=== PATIENT | female | born 1995 | race Caucasian/White ===

== ENCOUNTER → 2017-07-07 | Outpatient (CLI) | payer MEDICAID ==
[~2017-07-07] MED LIST: ACET325T38 PO; ACHD5005 PO; CALC500T7 PO; CEPH-507 PO; CEPH500C PO; DCS100C PO; DOCU100C37 PO; FAMO10TA43 PO; FERR240T9 PO; FERR325C PO; HYDR-3812 PO; IBP600T1 PO; IBUP-1773 PO; METR250T32 PO; MULT-192 PO; NAPR500T3 PO; NITR-65 PO; Nifedipine PO; OMEP20TA7 PO; ONDA4TAB11 PO; PHEN-640 PO; PNV1TABL9 PO; PREN-93 PO
--- NOTE | 2017-07-07 14:26 | Diagnostic Imaging Report ---
INDICATION: , size and dates. TECHNIQUE: Multiple real-time grayscale images were obtained over the gravid uterus. COMPARISON: None. FINDINGS: Intrauterine gestation today measures 20 weeks 0 day with the biometrical measurements congruent. No pathological finding at the anatomical survey is revealed however the caudal aspect of the spine is suboptimally visualized on a technical basis. The placenta is anterior with no abruption or previa. Positioning is breech. Amniotic fluid volume visually appears within normal limits. IMPRESSION: Rainey gestation in breech position without pathologic finding identified. We acknowledge limited visualization of the spine on a positional basis. Biometrical measurements are as follows: Biparietal 4.72 cm, age 20 weeks 2 days. Head circumference 17.72 cm, age 20 weeks 2 days. Abdominal circumference 14.51 cm, age 19 weeks 6 days. Femur length 3.00 cm, age 19 weeks 2 days. Sonographic estimate age: 20 weeks 0 days. Sonographic estimated date of delivery: 11-24-17. Estimated Weight: 305 gm (+/- 45 gm). LMP percentile: 9%. heart rate: NA beats per minute. number: 1 of 1. Dictated by: Dictated on workstation # [id number]
== END ==
LOC: RAD 10:48
PROVIDERS: ATTEND Obstetrics & Gynecology
DX: Z36.87 Encounter for antenatal screening for uncertain dates (principal); Z3A.20 20 weeks gestation of pregnancy
CPT/HCPCS: 76805

== ENCOUNTER 2017-11-04 10:25 | Inpatient (IN) | payer MEDICAID ==
[~2017-11-04] VITALS: Ht 160 cm; Wt 89.6 kg
[~2017-11-04 10:25] MED LIST changes: -HYDR-3812 PO; +NAPR-915 PO; -NAPR500T3 PO
[2017-11-04 10:35] VITALS: BP 144/84
--- OUTSIDE RECORDS SUMMARY | 2017-11-04 10:40 | XMS REPORT | CCD ---
Author Author Auto Generated Organization [facility] Address Unknown Phone Unavailable Care Team Providers Care Knowledge Engineer Name Role Phone Darin Ott RP [phone] Akshat Adams CP [phone] Casey Garcia PP [phone] Allergies, Adverse Reactions, Alerts Substance Reaction Status Adhesive Bandage Active Problem List Condition Effective Dates Status 07/04/2013 - Resolved 03/27/2014 05/22/2014 Active Medications Medication Instructions Start Date End Date Status ferrous sulfate 325 65 mg=1 tablet, PO, qDay, 325 mg/1 12/18/2014 Ordered mg (65 mg elemental tablet=65 mg elemental iron., # 30 iron) oral delayed tablet, Refill(s) 0 release tablet 325 mg/1 tablet=65 mg elemental iron. 1 tablet, PO, qDay, Refill(s) 0 12/18/2014 Ordered Multivitamins with Folic Acid 1 mg oral tablet Vital Signs Most recent to oldest [Reference Range]: 1 Heart Rate [45-120 bpm] 86 bpm (12/25/2014 14:11:00) Most recent to oldest [Reference Range]: 1 Blood Pressure Cuff [90-140/45-90 mmHg] <content ID='[id number]'>132</ content>/<content ID='[id number]'>63</content> mmHg (12/25/2014 14:11:00) Most recent to oldest [Reference Range]: 1 Current Weight 89.4 kg (12/25/2014 14:11:00) Most recent to oldest [Reference Range]: 1 Height/Length 137.2 cm (12/25/2014 14:11:00)
--- OUTSIDE RECORDS SUMMARY | 2017-11-04 10:40 | XMS REPORT | Continuity of Care Document ---
Author Author [employer] Organization [facility] Address Unknown Phone Unavailable Care Team Providers Care Caregiver Assisted Living Name Role Phone [employer] Unavailable Unavailable Problems Problem Status Onset Date Classification Date Reported Comments Source Patient currently (finding) Resolved 07/04/2013 Problem 03/29/2015 [facility] Medications Medication Details Route Status Patient Instructions Ordering Provider Order Date Source ferrous sulfate 325 mg (65 mg elemental iron) oral delayed release tablet 65 mg=1 tablet, PO, qDay, 325 mg/1 tablet=65 mg elemental iron., # 30 tablet, Refill(s) 0 325 mg/1 tablet=65 mg elemental iron. Active [facility] Multivitamins with Folic Acid 1 mg oral tablet 1 tablet, PO, qDay, Refill(s) 0 Active [facility] buffered lidocaine 1% 12/21/14 15:59:00 CDT, Med Drawer (Pharmacy), Routine, 3 mL, Intradermal, Injection, Unscheduled, PRN Needle Sticks Active [facility] sodium chloride 0.9% 1,000 mL 12/21/14 15:59:00 CDT, [facility] Inpatient, Routine, IV, 1,000 mL Total Volume, goga=721 mL/ hrMED ID: [id number] [facility] acetaminophen 12/21/14 16:19:00 CDT, [facility], Routine, 500 mg=1 tablet, PO, q4hr, PRN Fever or Mild Pain, greater than 33 kg greater than 33 kgMax dose: 10 y.o.=4 gm/day Active [facility] Allergies, Adverse Reactions, Alerts Substance Category Reaction Severity Reaction type Status Date Reported Comments Source Adhesive Bandage allergy to substance Continue Substance: Mild Allergy Active [facility] Immunizations Results Order Name Results Value Reference Range Date Interpretation Comments Source UA Micro Squam Epithelial Ur MANY (>15) /HPF 01/16/2015 [facility] UA Micro WBC Ur 51-100 /HPF 1-4 01/16/2015 [facility][note 3] UA Micro RBC Ur 1-4 /HPF 1-4 01/16/2015 [facility] UA Micro Bacteria Ur MANY / HPF NONE 01/16/2015 [facility] UA Micro Casts Ur NONE NONE 01/16/2015 [facility] UA Micro Crystals Ur NONE NONE 01/16/2015 [facility] UAM Color Ur YELLOW 01/16/2015 [facility] UAM Clarity Ur CLOUDY 01/16/2015 [facility] UAM Glucose Ur NEGATIVE NEGATIVE 01/16/2015 [facility] UAM Bili Ur NEGATIVE NEGATIVE 01/16/2015 [facility] UAM Ketones Ur NEGATIVE NEGATIVE 01/16/2015 [facility] UAM Specific [place] Ur 1.012 1.005 - 1.035 2014 [facility] UAM pH Ur 6.5 4.6 - 8.0 01/16/2015 [facility] UAM Protein Ur TRACE NEGATIVE 01/16/2015 [facility] UAM Nitrite Ur NEGATIVE NEGATIVE 01/16/2015 [facility] UAM Blood Ur NEGATIVE NEGATIVE 01/16/2015 [facility] UAM Leukocytes Ur 3+ NEGATIVE 01/16/2015 [facility][note 3] UAM Urobilinogen Ur NORMAL mg /dL 0.2 - 2.0 01/16/2015 [facility] Vit B12 Vit B-12 390 pg/mL 200-1100 01/05/2015 Please note: although the reference range for Vitamin B12 is 200-1100 pg/mL, it has been reported that between 5 and 10% of patients with values between 200 and 400 pg/mL may experience neuropsychiatric and hematologic abnormalities due to occult B12 deficiency; less than 1% of patients with values above 400 pg/mL will have symptoms. Lab test performed by: [facility] [address] [place] [address] Director: Yolie Campos MD, PhD [facility] Folate RBC Folate Erythrocytes >1720 ng/mL >=366 2014 [facility] Rubella Rubella IgG Pos 01/02/2015 [facility] G6PD G6PD 11.05 International Unit/gm Hgb 6.11 - 14.38 01/02/2015 Patients with recent RBCs transfusion, acute hemolysis and reticulocytosis may show falsely elevated G6PD activity. If indicated, repeat testing after clearance of transfused cell or following recovery after the acute hemolytic event is recommended. [facility] G6PD G6PD Method Comment Patients with recent RBC transfusion, acute hemolysis and reticulocytosis 01/02/2015 [facility] Hgb Reflex HGB 10.3 gm/dL 12.0 - 16.0 01/01/2015 [facility] TIBC TIBC 490 mcg/dL 224 - 435 01/01/2015 [facility] TIBC 490 mcg/dL 224 - 435 01/01/2015 [facility] TranSatPnl Iron 40 mcg/dL 50 - 160 01/01/2015 [facility]Sat[facility] Transferrin Saturation 8 % 15 - 46 01/01/2015 [facility] Retic % Retic 2.0 % 01/01/2015 [facility] Retic Abs Retic 0.0755 x10(6 ) mcL 0.0250 - 0.1000 2014 [facility] Retic Im Retic Fraction 21.6 % 3.0 - 20.0 01/01/2015 [facility] ALT ALT 24 unit/L 5 - 50 01/01/2015 [facility] AST AST 16 unit/L 12 - 50 01/01/2015 [facility] BasMet Sodium 137 mmol/L 135 - 145 01/01/2015 [facility] Potassium 3.5 mmol/L 3.5 - 5.2 01/01/2015 [facility] BasMet Chloride 104 mmol/L 99 - 112 01/01/2015 [facility] BasMet Carbon Dioxide 26 mmol /L 20 - 30 01/01/2015 [facility] Anion Gap 7 mmol/L 7 - 14 01/01/2015 [facility] Calcium 9.4 mg/dL 8.6 - 10.5 01/01/2015 [facility] BasMet Glucose 88 mg/dL 65 - 110 01/01/2015 [facility] BUN 4 mg/dL 5 - 20 01/01/2015 [facility] BasMet Creatinine .64 mg/dL .35 - .84 01/01/2015 [facility] BasMet Creatinine, Old Calibration 0.8 mg/dL 0.5 - 1.0 This creatinine value is a calculated value from the newly implemented IDMS calibration. It represents the value equivalent to what was previously reported by the laboratory. [facility] Uric Uric Acid 5.6 mg/dL 2.0 - 7.0 01/01/2015 [facility] DIFA Differential Method Auto Diff 01/01/2015 [facility] CBCD WBC 7.63 x10(3) mcL 4.50 - 11.00 01/01/2015 [facility] CBCD RBC 3.53 x10(6) mcL 4.00 - 5.20 01/01/2015 [facility] CBCD HGB 9.5 gm/dL 12.0 - 16.0 01/01/2015 [facility] CBCD HCT 29.3 % 36.0 - 46.0 01/01/2015 [facility] CBCD MCV 83.0 fL 82.0 - 100.0 01/01/2015 [facility] CBCD MCH 26.9 pg 26.0 - 34.0 01/01/2015 [facility] CBCD MCHC 32.4 gm/dL 31.5 - 36.5 01/01/2015 [facility] CBCD RDW 14.3 % 11.5 - 14.5 01/01/2015 [facility] CBCD Platelet 166 x10(3) mcL 150 - 450 01/01/2015 [facility] CBCD MPV 9.3 fL 8.2 - 12.4 01/01/2015 [facility] DIFA % Neutro 64.7 % 01/01/2015 [facility] DIFA % Imm Gran 0.4 % 01/01/2015 This number represents the sum of the metamyelocytes, myelocytes and promyelocytes. [facility] DIFA % Lymph 22.1 % 01/01/2015 [facility] DIFA % [place] 11.8 % 01/01/2015 [facility] DIFA % Eos 0.7 % 01/01/2015 [facility] DIFA % Baso 0.3 % 01/01/2015 [facility] DIFA Abs Neut 4.94 x10(3) mcL 1.80 - 7.00 01/01/2015 [facility] DIFA Abs Imm Gran 0.03 x10(3 ) mcL 0.00 - 0.04 01/01/2015 [facility] DIFA Abs Lymph 1.69 x10(3) mcL 1.20 - 4.00 01/01/2015 [facility] DIFA Abs [place] 0.90 x10(3) mcL 0.10 - 0.80 01/01/2015 [facility] DIFA Abs Eos 0.05 x10(3) mcL 0.00 - 0.50 01/01/2015 [facility] DIFA Abs Baso 0.02 x10(3) mcL 0.00 - 0.10 01/01/2015 [facility] Vital Signs Vital Sign Value Date Comments Source Current Weight 93.1 kg 2014 [facility] Height/Length 137.2 cm 2014 [facility] Systolic Blood Pressure Cuff Monitored <content ID=' [id number]'>137</content>/<content ID='[id number]'>84</content> mm[Hg ] 01/22/2015 [facility] Current Weight 92.7 kg 2014 [facility] Heart Rate 99 bpm 01/16/2015 [facility] Height/Length 137.2 cm 2014 [facility] Systolic Blood Pressure Cuff Monitored <content ID=' [id number]'>131</content>/<content ID='[id number]'>72</content> mm[Hg ] 01/16/2015 [facility] Heart Rate Monitored 81 bpm 01/11/2015 [facility] Respiratory Rate 18 BR/min [facility] Systolic Blood Pressure Cuff Monitored <content ID=' [id number]'>143</content>/<content ID='[id number]'>75</content> mm[Hg ] 01/11/2015 [facility] Heart Rate Monitored 88 bpm 01/11/2015 [facility] Systolic Blood Pressure Cuff Monitored <content ID=' [id number]'>162</content>/<content ID='[id number]'>87</content> mm[Hg ] 01/11/2015 [facility] Temperature Route Core/Temporal
(01/11/2015 10:15 :00) <sup> </sup> 01/11/2015 [facility] Temperature Celsius 36.5 Sapna 01/11/2015 [facility] Respiratory Rate 19 BR/min [facility] Systolic Blood Pressure Cuff Monitored <content ID=' [id number]'>135</content>/<content ID='[id number]'>77</content> mm[Hg ] 01/08/2015 [facility] Heart Rate 77 bpm 01/08/2015 [facility] Height/Length 137.2 cm 2014 [facility] Current Weight 91.4 kg 2014 [facility] Systolic Blood Pressure Cuff Monitored <content ID=' [id number]'>132</content>/<content ID='[id number]'>63</content> mm[Hg ] 12/25/2014 [facility] Height/Length 137.2 cm 2014 [facility] Heart Rate 86 bpm 12/25/2014 [facility] Current Weight 89.4 kg 2014 [facility] Temperature Celsius 37.1 Sapna 12/22/2014 [facility] Heart Rate Monitored 76 bpm 12/22/2014 [facility] Respiratory Rate 18 BR/min [facility] Temperature Route Core/Temporal
(12/22/2014 07:15 :00) <sup> </sup> 12/22/2014 [facility] Systolic Blood Pressure Cuff Monitored <content ID=' [id number]'>123</content>/<content ID='[id number]'>66</content> mm[Hg ] 12/22/2014 [facility] Respiratory Rate 20 BR/min [facility] Temperature Celsius 36.6 Sapna 12/22/2014 [facility] Heart Rate 89 bpm 12/22/2014 [facility] Temperature Route Core/Temporal
(12/22/2014 05:54 :00) <sup> </sup> 12/22/2014 [facility] Systolic Blood Pressure Cuff Monitored <content ID=' [id number]'>134</content>/<content ID='[id number]'>75</content> mm[Hg ] 12/22/2014 [facility] Temperature Celsius 36.5 Sapna 12/22/2014 [facility] Temperature Route Core/Temporal
(12/22/2014 01:30 :00) <sup> </sup> 12/22/2014 [facility] Heart Rate Monitored 100 bpm 12/22/2014 [facility] Respiratory Rate 16 BR/min [facility] Heart Rate 101 bpm 2014 [facility] Height/Length 137.2 cm 2014 [facility] Current Weight 90 kg 2014 [facility] Height/Length 137.2 cm 2014 [facility] Current Weight 90 kg 2014 [facility] Respiratory Rate 18 BR/min [facility] Temperature Route Core/Temporal
(12/18/2014 16:09 :00) <sup> </sup> 12/18/2014 [facility] Heart Rate 98 bpm 12/18/2014 [facility] Temperature Celsius 36.5 Sapna 12/18/2014 [facility] Systolic Blood Pressure Cuff Monitored <content ID=' [id number]'>128</content>/<content ID='[id number]'>80</content> mm[Hg ] 12/18/2014 [facility] Current Weight 87.5 kg 2014 [facility] Encounters Location Location Details Encounter Type Encounter Number Reason For Visit Attending Provider ADM Date DC Date Status Source [facility] Non Billable [id number] 12/08/2014 12/08/2014 Active [facility] CLI [id number] Akshat Adams 12/18/20142014 Active [facility] OBS [id number] June Rush 12/21/2014 12/22/2014 [facility] CLI [id number] Akshat Adams 12/25/20142014 Active [facility] CLI [id number] Akshat Adams 01/01/20152014 Active [facility] CLI [id number] Akshat Adams 01/08/20152014 Active [facility] CLI [id number] Tylor Phillips 01/11/2015 01/11/2015 Active [facility] CLI [id number] Tylor Phillips 01/16/2015 01/16/2015 Active [facility] CLI [id number] Akshat Adams 01/22/20152014 Active [facility] O 08/07/2017 Active [facility] Procedures Plan of Care Social History Assessment and Plan Family History Advance Directives Functional Status
--- OUTSIDE RECORDS SUMMARY | 2017-11-04 10:40 | XMS REPORT | CCD ---
Author Author Auto Generated Organization [facility] Address Unknown Phone Unavailable Care Team Providers Care Natural Resources Professor Name Role Phone Darin Ott RP [phone] Akshat Adams CP [phone] Casey Garcia PP [phone] Allergies, Adverse Reactions, Alerts Substance Reaction Status [...] [Reference Range]: 1 Heart Rate [45-120 bpm] 98 bpm (12/18/2014 16:09:00) Most recent to oldest [Reference Range]: 1 Respiratory Rate [10-40 BR/min] 18 BR/min (12/18/2014 16:09:00) Most recent to oldest [Reference Range]: 1 Blood Pressure Cuff [90-140/45-90 mmHg] <content ID='[id number]'>128</ content>/<content ID='[id number]'>80</content> mmHg (12/18/2014 16:09:00) Most recent to oldest [Reference Range]: 1 Temperature Route Core/Temporal (12/18/2014 16:09:00) Most recent to oldest [Reference Range]: 1 Temperature Celsius [36.0-38.4 DegC] 36.5 DegC (12/18/2014 16:09:00) Most recent to oldest [Reference Range]: 1 Current Weight 87.5 kg (12/18/2014 16:09:00)
--- OUTSIDE RECORDS SUMMARY | 2017-11-04 10:41 | XMS REPORT | CCD ---
Author Author Auto Generated Organization [facility] Address Unknown Phone Unavailable Care Team Providers Care Orthopedic Coder Name Role Phone Darin Ott RP [phone] Casey Garcia PP [phone] Tylor Phillips CP [phone] Allergies, Adverse Reactions, Alerts Substance Reaction Status [...] Most recent to oldest [Reference Range]: 1 2 Heart Rate Monitored [45-120 bpm] 81 bpm (01/11/2015 10:21:00) 88 bpm (01/11/2015 10:15:00) Most recent to oldest [Reference Range]: 1 2 Respiratory Rate [10-40 BR/min] 18 BR/min (01/11/2015 10:21:00) 19 BR/min (01/11/2015 10:15:00) Most recent to oldest [Reference Range]: 1 2 Blood Pressure Cuff [90-140/45-90 mmHg] <content ID='[id number]'>143</ content>/<content ID='[id number]'>75</content> mmHg *HI* (01/11/2015 10:21:00) <content ID='[id number]'>162</content>/<content ID='[id number]'>87</content> mmHg *HI* (01/11/2015 10:15:00) Most recent to oldest [Reference Range]: 1 2 Temperature Route Core/Temporal (01/11/2015 10:15:00) Most recent to oldest [Reference Range]: 1 2 Temperature Celsius [36-38.4 DegC] 36.5 DegC (01/11/2015 10:15:00)
--- OUTSIDE RECORDS SUMMARY | 2017-11-04 10:41 | XMS REPORT | CCD ---
Author Author Auto Generated Organization [facility] Address Unknown Phone Unavailable Care Team Providers Care Preschool Assistant Name Role Phone No, Referring RP Unavailable Casey Garcia PP [phone] Olaf Amaro CP [phone] Allergies, Adverse Reactions, Alerts Substance Reaction Status Adhesive Bandage Active Problem List Condition Effective Dates Status 07/04/2013 - Resolved 03/27/2014 05/22/2014 Active Medications Medication Instructions Start Date End Date Status buffered lidocaine 12/21/14 15:59:00 CDT, Med Drawer 12/21/2014 Ordered 1% (Pharmacy), Routine, 3 mL, Intradermal, Injection, Unscheduled, PRN Needle Sticks sodium chloride 0.9% 12/21/14 15:59:00 CDT, Health 12/21/2014 Ordered 1,000 mL Center Inpatient, Routine, IV, 1,000 mL Total Volume, qbqm=803 mL/hrMED ID: [id number] ferrous sulfate 325 65 mg=1 tablet, PO, qDay, 325 mg/1 12/18/2014 Ordered mg (65 mg elemental tablet=65 mg elemental iron., # 30 iron) oral delayed tablet, Refill(s) 0 release tablet 325 mg/1 tablet=65 mg elemental iron. 1 tablet, PO, qDay, Refill(s) 0 12/18/2014 Ordered Multivitamins with Folic Acid 1 mg oral tablet acetaminophen 12/21/14 16:19:00 CDT, [facility] 12/21/2014 Ordered [facility], Routine, 500 mg=1 tablet, PO, q4hr, PRN Fever or Mild Pain, greater than 33 kg greater than 33 kgMax dose: < 12 y.o.=75 mg/kg/day; > 12 y.o.=4 gm/day Vital Signs Most recent to oldest [Reference Range]: 1 2 3 Heart Rate [45-120 bpm] 89 bpm (12/22/2014 05:54:00) 101 bpm (12/21/2014 22:06:00) Most recent to oldest [Reference Range]: 1 2 3 Heart Rate Monitored [45-120 bpm] 76 bpm (12/22/2014 07:15:00) 100 bpm (12/22/2014 01:30:00) Most recent to oldest [Reference Range]: 1 2 3 Respiratory Rate [10-40 BR/min] 18 BR/min (12/22/2014 07:15:00) 20 BR/min (12/22/2014 05:54:00) 16 BR/min (12/22/2014 01:30:00) Most recent to oldest [Reference Range]: 1 2 3 Blood Pressure Cuff [90-140/45-90 mmHg] <content ID='[id number]'>123</ content>/<content ID='[id number]'>66</content> mmHg (12/22/2014 07:15:00) <content ID='[id number]'>134</content>/<content ID='[id number]'>75</content> mmHg (12/22/2014 01:30:00) Most recent to oldest [Reference Range]: 1 2 3 Temperature Route Core/Temporal (12/22/2014 07:15:00) Core/Temporal (12/22/2014 05:54:00) Core/Temporal (12/22/2014 01:30:00) Most recent to oldest [Reference Range]: 1 2 3 Temperature Celsius [36-38.4 DegC] 37.1 DegC (12/22/2014 07:15:00) 36.6 DegC (12/22/2014 05:54:00) 36.5 DegC (12/22/2014 01:30:00) Most recent to oldest [Reference Range]: 1 2 3 Current Weight 90 kg (12/21/2014 16:30:00) 90 kg (12/21/2014 15:10:00) Most recent to oldest [Reference Range]: 1 2 3 Height/Length 137.2 cm (12/21/2014 16:30:00) 137.2 cm (12/21/2014 15:10:00)
--- OUTSIDE RECORDS SUMMARY | 2017-11-04 10:41 | XMS REPORT | CCD ---
Author Author Auto Generated Organization [facility] Address Unknown Phone Unavailable Care Team Providers Care Station Superintendent Name Role Phone Akshat Adams CP [phone] Casey Garcia PP [phone] Allergies, Adverse Reactions, Alerts Substance Reaction Status [...]
--- OUTSIDE RECORDS SUMMARY | 2017-11-04 10:41 | XMS REPORT | CCD ---
Author Author Auto Generated Organization Address Unknown Phone Unavailable Care Team Providers Care Looping Machine Operator Name Role Phone Darin Ott RP [phone] Casey Garcia PP [phone] Tylor Phillips CP [phone] Allergies, Adverse Reactions, Alerts Substance Reaction Status [...] [Reference Range]: 1 Heart Rate [45-120 bpm] 99 bpm (01/16/2015 12:09:00) Most recent to oldest [Reference Range]: 1 Blood Pressure Cuff [90-140/45-90 mmHg] <content ID='[id number]'>131</ content>/<content ID='[id number]'>72</content> mmHg (01/16/2015 12:09:00) Most recent to oldest [Reference Range]: 1 Current Weight 92.7 kg (01/16/2015 12:09:00) Most recent to oldest [Reference Range]: 1 Height/Length 137.2 cm (01/16/2015 12:09:00)
--- OUTSIDE RECORDS SUMMARY | 2017-11-04 10:41 | XMS REPORT | CCD ---
Author Author Auto Generated Organization [facility] Address Unknown Phone Unavailable Care Team Providers Care Commercial Maintenance Technician Name Role Phone Darin Ott RP [phone] Akshat Adams CP [phone] Casey Garcia PP [phone] Allergies, Adverse Reactions, Alerts Substance Reaction Status [...] [Reference Range]: 1 Heart Rate [45-120 bpm] 77 bpm (01/08/2015 09:38:00) Most recent to oldest [Reference Range]: 1 Blood Pressure Cuff [90-140/45-90 mmHg] <content ID='[id number]'>135</ content>/<content ID='[id number]'>77</content> mmHg (01/08/2015 09:38:00) Most recent to oldest [Reference Range]: 1 Current Weight 91.4 kg (01/08/2015 09:38:00) Most recent to oldest [Reference Range]: 1 Height/Length 137.2 cm (01/08/2015 09:38:00)
--- OUTSIDE RECORDS SUMMARY | 2017-11-04 10:41 | XMS REPORT | CCD ---
Author Author Auto Generated Organization [facility] Address Unknown Phone Unavailable Care Team Providers Care Metal Treater Name Role Phone Darin Ott RP [phone] Akshat Adams CP [phone] Casey Garcia PP [phone] Allergies, Adverse Reactions, Alerts Substance Reaction Status [...] 1 Blood Pressure Cuff [90-140/45-90 mmHg] <content ID='[id number]'>137</ content>/<content ID='[id number]'>84</content> mmHg (01/22/2015 14:41:00) Most recent to oldest [Reference Range]: 1 Current Weight 93.1 kg (01/22/2015 14:41:00) Most recent to oldest [Reference Range]: 1 Height/Length 137.2 cm (01/22/2015 14:41:00)
--- OUTSIDE RECORDS SUMMARY | 2017-11-04 10:41 | XMS REPORT | Clinical Summary ---
Author Author [facility] Organization [facility] Address Unknown Phone Unavailable Care Team Providers Care Selvage Machine Operator Name Role Phone No Pcp, Na PCP Unavailable Source Comments Some departments are not documenting in the electronic medical record. If you do not see the information that you expected, contact Release of Information in the Health Information Management department at [phone] for further assistance in locating additional records.[facility] Allergies Not on File Current Medications Not on file Active Problems Not on file Social History Tobacco Use Types Packs/Day Years Used Date Never Assessed Sex Assigned at Date Recorded Not on file Last Filed Vital Signs Not on file Plan of Treatment Health Maintenance Due Date Last Done Comments PHYSICAL (COMPREHENSIVE) 2000 EXAM HPV VACCINES (1 of 3 - 2004 Female 3 Dose Series) PERTUSSIS VACCINE 2004 HIV SCREENING 2008 TETANUS VACCINE 2010 CERVICAL CANCER SCREENING 2014 INFLUENZA VACCINE 05/24/2018 Results Not on filefrom Last 3 Months
--- OUTSIDE RECORDS SUMMARY | 2017-11-04 10:41 | XMS REPORT | CCD ---
Author Author Auto Generated Organization [facility] Address Unknown Phone Unavailable Care Team Providers Care Dielectric Tester Name Role Phone Darin Ott RP [phone] Akshat Adams CP [phone] Casey Garcia PP [phone] Allergies, Adverse Reactions, Alerts Substance Reaction Status [...]
--- OUTSIDE RECORDS SUMMARY | 2017-11-04 10:42 | XMS REPORT ---
Author Author ANGELIA REBOLLAR [facility] Address [address] [place] [address] Care Team Providers Care Loan Expeditor Name Role Phone ANGELIA REBOLLAR Unavailable PROBLEMS Type Condition ICD9-CM Code JRO09-SX Code Onset Dates Condition Status SNOMED Code Problem Elevated blood pressure reading without diagnosis of hypertension 796.2 Active 952120587 Problem Tobacco abuse Z72.0 Active 57619244 Problem Anxiety F41.9 Active 08250426 Problem Lower abdominal pain R10.30 Active 34981222 Problem Irregular menstrual cycle N92.6 Active 97599981 Problem Fatigue, unspecified type R53.83 Active 80510069 Problem Constipation, unspecified constipation type K59.00 Active 06271233 ALLERGIES No Information SOCIAL HISTORY Never Assessed PLAN OF CARE VITAL SIGNS MEDICATIONS Unknown Medications RESULTS No Results PROCEDURES No Known procedures IMMUNIZATIONS No Known Immunizations MEDICAL (GENERAL) HISTORY Type Description Date Medical History anxiety Medical History Supervision of normal first Medical History Unspecified chlamydial infection, in conditions classified elsewhere and of unspecified site Medical History Decreased movements, affecting management of mother, antepartum condition or complication Medical History Threatened premature labor, unspecified as to episode of care Medical History Unspecified hypertension complicating , childbirth, or the puerperium, unspecified as to episode of care Medical History Unspecified high-risk Medical History DTAP TEST Surgical History section 01/2015 Surgical History appendectomy 03/2013 Surgical History wisdom teeth extraction Hospitalization History surgeries, childbirth
--- OUTSIDE RECORDS SUMMARY | 2017-11-04 10:42 | XMS REPORT ---
Author Author ANGELIA REBOLLAR [facility] eClinicalWorks Address Unknown Phone Unavailable Care Team Providers Care Blind Escort Name Role Phone ANGELIA REBOLLAR CP Unavailable Allergies No Known Allergies Problems Problem Type Condition Code Onset Dates Condition Status Problem Anxiety F41.9 Active Problem Lower abdominal pain R10.30 Active Problem Irregular menstrual cycle N92.6 Active Problem Tobacco abuse Z72.0 Active Problem Elevated blood pressure reading without diagnosis of hypertension 796.2 Active Problem Constipation, unspecified constipation type K59.00 Active Problem Fatigue, unspecified type R53.83 Active Medications No Known Medications Results No Known Results Summary Purpose eClinicalWorks Submission
--- OUTSIDE RECORDS SUMMARY | 2017-11-04 10:42 | XMS REPORT ---
Author Author ANGELIA REBOLLAR [facility] Address [address] [place] [address] Care Team Providers Care Cable Hooker Name Role Phone ANGELIA REBOLLAR Unavailable PROBLEMS Type Condition ICD9-CM Code IRA29-KG Code Onset Dates Condition Status SNOMED Code Problem Elevated blood pressure reading without diagnosis of hypertension 796.2 Active 473912943 Problem Tobacco abuse Z72.0 Active 94621582 Problem Anxiety F41.9 Active 54995910 Problem Lower abdominal pain R10.30 Active 19515306 Problem Irregular menstrual cycle N92.6 Active 45532202 Problem Fatigue, unspecified type R53.83 Active 31889710 Problem Constipation, unspecified constipation type K59.00 Active 87878814 ALLERGIES No Information SOCIAL HISTORY Never Assessed [...]
--- OUTSIDE RECORDS SUMMARY | 2017-11-04 10:42 | XMS REPORT ---
Author Author ANGELIA REBOLLAR [facility] eClinicalWorks Address Unknown Phone Unavailable Care Team Providers Care Pickle Sorter Name Role Phone ANGELIA REBOLLAR CP Unavailable [...]
--- OUTSIDE RECORDS SUMMARY | 2017-11-04 10:42 | XMS REPORT ---
Author Author KAM NGO [facility] e[employer] Address Unknown Phone Unavailable Care Team Providers Care Lap Welder Name Role Phone KAM [facility] CP Unavailable Allergies No Known Allergies Problems Problem Type Condition Code Onset Dates Condition Status Problem Elevated blood pressure reading without diagnosis of hypertension 796.2 Active Problem Oligohydramnios, unspecified as to episode of care 658.00 Active Problem examination or test, negative result V72.41 Active Problem Supervision of normal first V22.0 Active Problem Unspecified high-risk V23.9 Active Problem examination or test, positive result V72.42 Active Problem Allergic rhinitis, cause unspecified 477.9 Active Problem Trichomonal vulvovaginitis 131.01 Active Problem Threatened premature labor, unspecified as to episode of care 644.00 Active Problem Unspecified hypertension complicating , childbirth, or the puerperium, unspecified as to episode of care 642.90 Active Problem Unspecified chlamydial infection, in conditions classified elsewhere and of unspecified site 079.98 Active Problem Decreased movements, affecting management of mother, antepartum condition or complication 655.73 Active Problem Supervision of other normal V22.1 Active Problem Asymptomatic bacteriuria in , unspecified as to episode of care 646.50 Active Problem Need for prophylactic vaccination and inoculation, Influenza V04.81 Active Problem examination or test, unconfirmed V72.40 Active Problem Routine follow-up V24.2 Active Problem 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
--- OUTSIDE RECORDS SUMMARY | 2017-11-04 10:42 | XMS REPORT ---
Author ANGELIA Law [facility] eClinicalWorks Address Unknown Phone Unavailable Care Team Providers Care Chair Car Attendant Name Role Phone ANGELIA REBOLLAR CP Unavailable [...]
--- OUTSIDE RECORDS SUMMARY | 2017-11-04 10:42 | XMS REPORT ---
Author Author ANGELIA REBOLLAR [facility] Address [address] [place] [address] Care Team Providers Care Science Center Display Builder Name Role Phone ANGELIA REBOLLAR Unavailable PROBLEMS Type Condition ICD9-CM Code IOS15-GS Code Onset Dates Condition Status SNOMED Code Problem Elevated blood pressure reading without diagnosis of hypertension 796.2 Active 207203897 Problem Tobacco abuse Z72.0 Active 22888064 Problem Anxiety F41.9 Active 17266319 Problem Lower abdominal pain R10.30 Active 00273048 Problem Irregular menstrual cycle N92.6 Active 19740127 Problem Fatigue, unspecified type R53.83 Active 89268201 Problem Constipation, unspecified constipation type K59.00 Active 14418609 ALLERGIES No Information SOCIAL HISTORY Never Assessed [...]
--- OUTSIDE RECORDS SUMMARY | 2017-11-04 10:42 | XMS REPORT ---
Author Author ANGELIA REBOLLAR [facility] Address [address] [place] [address] Care Team Providers Care Recruiting Operations Consultant Name Role Phone ANGELIA REBOLLAR Unavailable PROBLEMS Type Condition ICD9-CM Code FZF96-ZF Code Onset Dates Condition Status SNOMED Code Problem Elevated blood pressure reading without diagnosis of hypertension 796.2 Active 422969935 Problem Tobacco abuse Z72.0 Active 39157242 Problem Anxiety F41.9 Active 16903250 Problem Lower abdominal pain R10.30 Active 99887649 Problem Irregular menstrual cycle N92.6 Active 28012149 Problem Fatigue, unspecified type R53.83 Active 50418076 Problem Constipation, unspecified constipation type K59.00 Active 92921774 ALLERGIES No Information SOCIAL HISTORY Never Assessed [...]
--- OUTSIDE RECORDS SUMMARY | 2017-11-04 10:43 | XMS REPORT ---
Author Author ANGELIA REBOLLAR [facility] eClinicalWorks Address Unknown Phone Unavailable Care Team Providers Care Music Education Adjunct Professor Name Role Phone ANGELIA REBOLLAR CP Unavailable [...]
--- OUTSIDE RECORDS SUMMARY | 2017-11-04 10:43 | XMS REPORT ---
Author Author ANGELIA REBOLLAR [facility] eClinicalWorks Address Unknown Phone Unavailable Care Team Providers Care Engine Assembler Name Role Phone ANGELIA REBOLLAR CP Unavailable [...]
--- OUTSIDE RECORDS SUMMARY | 2017-11-04 10:43 | XMS REPORT ---
Author Author [facility] [employer] Address Unknown Phone Unavailable Care Team Providers Care Facility Service Manager Name Role Phone [facility] CP Unavailable Allergies, Adverse Reactions, Alerts Substance Reaction Event Type N.K.D.A. Info Not Available Non Drug Allergy Problems Problem Type Condition Code Onset Dates [...] Problem Allergic rhinitis, cause unspecified 477.9 Active Assessment Alopecia L65.9 Active Problem Trichomonal vulvovaginitis 131.01 Active Problem [...] 112.1 Active Problem Cough 786.2 Active Medications Medication Code System Code Instructions Start Date End Date Status Dosage Zoloft [facility] [address]-77 50 MG Orally Once a day 1 tablet Procedures Procedure Coding System Code Date ASSAY OF FREE THYROXINE CPT-4 16417 Jun 13, 2015 Office Visit, Est Pt., Level 3 CPT-4 86182 Jun 13, 2015 ASSAY THYROID STIM HORMONE CPT-4 56061 Jun 13, 2015 VENIPUNCT, ROUTINE* CPT-4 04187 Jun 13, 2015 Vital Signs Date/Time: Jun 13, 2015 Temperature 98.2 F Weight 166.4 lbs Height 63 in BMI 29.47 Index Blood Pressure Diastolic 70 mmHg Blood Pressure Systolic 110 mmHg Cardiac Monitoring Heart Rate 88 bpm Results Name Result Date Reference Range Unit Abnormality Flag ROUTINE VENIPUNCTURE TSH W/ FREE T4 Summary Purpose eClinicalWorks Submission
--- OUTSIDE RECORDS SUMMARY | 2017-11-04 10:44 | XMS REPORT ---
Author Author ANGELIA REBOLLAR [facility] Address [address] [place] [address] Care Team Providers Care Social Media Marketer Name Role Phone ANGELIA REBOLLAR Unavailable PROBLEMS Type Condition ICD9-CM Code BHY80-DL Code Onset Dates Condition Status SNOMED Code Problem Elevated blood pressure reading without diagnosis of hypertension 796.2 Active 537065924 Problem Tobacco abuse Z72.0 Active 98437939 Problem Anxiety F41.9 Active 91433420 Problem Lower abdominal pain R10.30 Active 48974066 Problem Irregular menstrual cycle N92.6 Active 23498638 Problem Fatigue, unspecified type R53.83 Active 24626388 Problem Constipation, unspecified constipation type K59.00 Active 56395969 ALLERGIES No Information SOCIAL HISTORY Never Assessed [...]
--- OUTSIDE RECORDS SUMMARY | 2017-11-04 10:44 | XMS REPORT ---
Author Author HARRIS DUCKWORTH [facility] Address [address] [place] [address] Care Team Providers Care Distribution Specialist Name Role Phone HARRIS DUCKWORTH Unavailable PROBLEMS Type Condition ICD9-CM Code ASI29-MG Code Onset Dates Condition Status SNOMED Code Problem Elevated blood pressure reading without diagnosis of hypertension 796.2 Active 552142696 Problem Tobacco abuse Z72.0 Active 43022211 Problem Anxiety F41.9 Active 86528373 Problem Lower abdominal pain R10.30 Active 24027179 Problem Irregular menstrual cycle N92.6 Active 69263164 Problem Fatigue, unspecified type R53.83 Active 89773898 Problem Constipation, unspecified constipation type K59.00 Active 19242310 ALLERGIES No Known Allergies SOCIAL HISTORY Never Assessed PLAN OF CARE VITAL SIGNS Height 63 in 2016-05-16 Weight 183.2 lbs 2016-05-16 Temperature 98.1 degrees Fahrenheit 2016-05-16 Heart Rate 92 bpm 2016-05-16 Respiratory Rate 20 2016-05-16 BMI 32.45 kg/m2 2016-05-16 Blood pressure systolic 132 mmHg 2016-05-16 Blood pressure diastolic 72 mmHg 2016-05-16 MEDICATIONS Medication Instructions Dosage Frequency Start Date End Date Duration Status Orally Once a day 1 tablet 24h Active Zantac 150 MG Orally Once a day 1 tablet at bedtime 24h Active Amoxicillin 500 MG Orally 3 times a day 1 capsule 8h Apr, May, 10 day(s) Active RESULTS No Results PROCEDURES No Known procedures [...]
--- OUTSIDE RECORDS SUMMARY | 2017-11-04 10:44 | XMS REPORT ---
Author Author ANGELIA REBOLLAR [facility] eClinicalWorks Address Unknown Phone Unavailable Care Team Providers Care Flight Mechanic Name Role Phone ANGELIA REBOLLAR CP Unavailable [...]
--- OUTSIDE RECORDS SUMMARY | 2017-11-04 10:44 | XMS REPORT ---
Author Author BURTON REYES [facility] Address [address] [place] [address] Care Team Providers Care Can Technician Name Role Phone BURTON REYES Unavailable PROBLEMS Type Condition ICD9-CM Code QEH78-FN Code Onset Dates Condition Status SNOMED Code Problem Elevated blood pressure reading without diagnosis of hypertension 796.2 Active 364726305 Problem Tobacco abuse Z72.0 Active 90804612 Problem Anxiety F41.9 Active 64469967 Problem Lower abdominal pain R10.30 Active 06021910 Problem Irregular menstrual cycle N92.6 Active 74855747 Problem Fatigue, unspecified type R53.83 Active 04032665 Problem Constipation, unspecified constipation type K59.00 Active 21076757 ALLERGIES No Information SOCIAL HISTORY Never Assessed [...]
--- OUTSIDE RECORDS SUMMARY | 2017-11-04 10:44 | XMS REPORT ---
Author Author ANGELIA REBOLLAR [facility] Address [address] [place] [address] Care Team Providers Care Order Picker/Assembler Name Role Phone ANGELIA REBOLLAR Unavailable PROBLEMS Type Condition ICD9-CM Code CAQ60-LR Code Onset Dates Condition Status SNOMED Code Problem Elevated blood pressure reading without diagnosis of hypertension 796.2 Active 392462106 Problem Irregular menstrual cycle N92.6 Active 79938461 Problem Anxiety F41.9 Active 48903516 Problem Fatigue, unspecified type R53.83 Active 89154907 Problem Tobacco abuse Z72.0 Active 82690180 Problem Lower abdominal pain R10.30 Active 84559750 Problem Constipation, unspecified constipation type K59.00 Active 71156644 ALLERGIES Unknown Allergies SOCIAL HISTORY No smoking Hx information available PLAN OF CARE VITAL SIGNS MEDICATIONS Unknown Medications RESULTS No Results PROCEDURES No Known procedures IMMUNIZATIONS No Known Immunizations
--- OUTSIDE RECORDS SUMMARY | 2017-11-04 10:44 | XMS REPORT ---
Author Author ANGELIA REBOLLAR [facility] Address [address] [place] [address] Care Team Providers Care Personnel Clerks Supervisor Name Role Phone ANGELIA REBOLLAR Unavailable PROBLEMS Type Condition ICD9-CM Code YYZ20-MF Code Onset Dates Condition Status SNOMED Code Problem Elevated blood pressure reading without diagnosis of hypertension 796.2 Active 018856877 Problem Tobacco abuse Z72.0 Active 28364695 Problem Anxiety F41.9 Active 19333558 Problem Lower abdominal pain R10.30 Active 63145193 Problem Irregular menstrual cycle N92.6 Active 92668182 Problem Fatigue, unspecified type R53.83 Active 32515222 Problem Constipation, unspecified constipation type K59.00 Active 13360192 ALLERGIES No Information SOCIAL HISTORY Never Assessed [...]
--- OUTSIDE RECORDS SUMMARY | 2017-11-04 10:44 | XMS REPORT ---
Author Author ANGELIA REBOLLAR [facility] Address [address] [place] [address] Care Team Providers Care Wood Mechanist Name Role Phone ANGELIA REBOLLAR Unavailable PROBLEMS Type Condition ICD9-CM Code IPG89-IA Code Onset Dates Condition Status SNOMED Code Problem Elevated blood pressure reading without diagnosis of hypertension 796.2 Active 582512474 Problem Tobacco abuse Z72.0 Active 24556945 Problem Anxiety F41.9 Active 38692603 Problem Lower abdominal pain R10.30 Active 04757109 Problem Irregular menstrual cycle N92.6 Active 35983663 Problem Fatigue, unspecified type R53.83 Active 71794117 Problem Constipation, unspecified constipation type K59.00 Active 19330286 ALLERGIES No Information SOCIAL HISTORY Never Assessed [...]
--- OUTSIDE RECORDS SUMMARY | 2017-11-04 10:44 | XMS REPORT ---
Author Author ANGELIA REBOLLAR [facility] Address [address] [place] [address] Care Team Providers Care Hydrant Setter Name Role Phone ANGELIA REBOLLAR Unavailable PROBLEMS Type Condition ICD9-CM Code GYY30-UE Code Onset Dates Condition Status SNOMED Code Problem Elevated blood pressure reading without diagnosis of hypertension 796.2 Active 502148372 Problem Tobacco abuse Z72.0 Active 53369723 Problem Anxiety F41.9 Active 34554807 Problem Lower abdominal pain R10.30 Active 34467867 Problem Irregular menstrual cycle N92.6 Active 71804426 Problem Fatigue, unspecified type R53.83 Active 69810262 Problem Constipation, unspecified constipation type K59.00 Active 65994452 ALLERGIES Unknown Allergies SOCIAL HISTORY No smoking Hx information available PLAN OF CARE VITAL SIGNS MEDICATIONS Unknown Medications RESULTS No Results PROCEDURES No Known procedures IMMUNIZATIONS No Known Immunizations
--- OUTSIDE RECORDS SUMMARY | 2017-11-04 10:44 | XMS REPORT ---
Author Author ANGELIA REBOLLAR [facility] eClinicalWorks Address Unknown Phone Unavailable Care Team Providers Care Automotive Electrical Helper Name Role Phone ANGELIA REBOLLAR CP Unavailable [...]
--- OUTSIDE RECORDS SUMMARY | 2017-11-04 10:44 | XMS REPORT ---
Author Author BURTON REYES [facility] eClinicalWorks Address Unknown Phone Unavailable Care Team Providers Care Blow Down Operator Name Role Phone BURTON REYES CP Unavailable Allergies, Adverse Reactions, Alerts Substance [...] Allergic rhinitis, cause unspecified 477.9 Active Assessment Nausea R11.0 Active Problem Trichomonal vulvovaginitis 131.01 Active Problem [...] Start Date End Date Status Dosage Zoloft [facility] [address]-18 50 MG Orally Once a day 1 tablet Procedures Procedure Coding System Code Date Office Visit, Est Pt., Level 3 CPT-4 67864 Jul 03, 2015 VENIPUNCT, ROUTINE* CPT-4 99284 Jul 03, 2015 CHORIONIC GONADOTROPIN ASSAY CPT-4 27633 Jul 03, 2015 Vital Signs Date/Time: Jul 03, 2015 Temperature 98 F Weight 144.2 lbs Height 63 in BMI 25.54 Index Blood Pressure Diastolic 62 mmHg Blood Pressure Systolic 120 mmHg Cardiac Monitoring Heart Rate 80 bpm Results Name Result Date Reference Range Unit Abnormality Flag ROUTINE VENIPUNCTURE HCG, QUANTITATIVE Summary Purpose eClinicalWorks Submission
--- OUTSIDE RECORDS SUMMARY | 2017-11-04 10:44 | XMS REPORT ---
Author Author ANGELIA REBOLLAR [facility] Address [address] [place] [address] Care Team Providers Care Barrel Straightener Name Role Phone ANGELIA REBOLLAR Unavailable PROBLEMS Type Condition ICD9-CM Code SEY24-NJ Code Onset Dates Condition Status SNOMED Code Problem Elevated blood pressure reading without diagnosis of hypertension 796.2 Active 110586294 Problem Tobacco abuse Z72.0 Active 06509158 Problem Anxiety F41.9 Active 17011359 Problem Lower abdominal pain R10.30 Active 77847291 Problem Irregular menstrual cycle N92.6 Active 41161896 Problem Fatigue, unspecified type R53.83 Active 88804187 Problem Constipation, unspecified constipation type K59.00 Active 62797274 ALLERGIES No Information SOCIAL HISTORY Never Assessed [...]
--- OUTSIDE RECORDS SUMMARY | 2017-11-04 10:45 | XMS REPORT ---
Author Author MONISHA CALI [employer] Address Unknown Phone Unavailable Care Team Providers Care Guide Rail Cleaner Name Role Phone MONISHA CALI Unavailable Allergies, Adverse Reactions, Alerts Substance Reaction Event Type N.K.D.A. Info Not Available Non Drug Allergy Problems Problem Type Condition Code Onset Dates Condition Status Assessment Vaginal discharge N89.8 Active Assessment Pelvic pain R10.2 Active Assessment Left lower quadrant pain R10.32 Active Problem Anxiety F41.9 Active Problem Lower abdominal pain R10.30 Active Problem Irregular menstrual cycle N92.6 Active Problem Tobacco abuse Z72.0 Active Problem Elevated blood pressure reading without diagnosis of hypertension 796.2 Active Problem Constipation, unspecified constipation type K59.00 Active Problem Fatigue, unspecified type R53.83 Active Assessment History of dyspareunia in female Z87.42 Active Assessment Kidney stone N20.0 Active Assessment Unprotected sexual intercourse Z72.51 Active Assessment Screening for malignant neoplasm of cervix Z12.4 Active Assessment Routine screening for STI (sexually transmitted infection) Z11.3 Active Medications Medication Code System Code Instructions Start Date End Date Status Dosage Flagyl [facility] [address]-84 500 MG Orally 2 times a day Oct 04, 2015 Oct 11, 2015 1 tablet Procedures Procedure Coding System Code Date TRICHOMONAS ASSAY W/OPTIC CPT-4 68191 Oct 04, 2015 SPECIMEN HANDLING CPT-4 58731 Oct 04, 2015 No Charge CPT-4 50680 Oct 04, 2015 URINALYSIS, AUTO, W/O SCOPE CPT-4 81648 Oct 04, 2015 URINE TEST CPT-4 13116 Oct 04, 2015 Office Visit, Est Pt., Level 4 CPT-4 60368 Oct 04, 2015 URINE CULTURE/COLONY COUNT CPT-4 26994 Oct 04, 2015 Vital Signs Date/Time: Oct 04, 2015 Temperature 98.3 F Weight 175.0 lbs Height 63 in BMI 31.00 Index Blood Pressure Diastolic 78 mmHg Blood Pressure Systolic 124 mmHg Cardiac Monitoring Heart Rate 86 bpm Results Name Result Date Reference Range Unit Abnormality Flag TRICHOMONAS (IN HOUSE) ----Lot # [id number] 20151004 ----Exp date 20151004 ----TRICHOMONAS negative 20151004 ----Control + 20151004 TEST, URINE (IN HOUSE) ----RESULTS negative 20151004 ----Lot # [id number] 20151004 ----Control + 20151004 ----Exp date 20151004 UA LONG DIP (IN HOUSE) ----KODI negative 20151004 ----GLU negative 20151004 ----SG 1.025 20151004 ----KET negative 20151004 ----pH 5.5 20151004 ----Protein trace 20151004 ----BLO 3+ 20151004 ----CALIN trace 20151004 ----Color yellow 20151004 ----Odor no 20151004 ----Exp date 20151004 ----URO 0.2 E.U./dL 20151004 ----NIT negative 20151004 ----Clarity clear 20151004 ----Lot # [id number] 20151004 Summary Purpose eClinicalWorks Submission
--- OUTSIDE RECORDS SUMMARY | 2017-11-04 10:45 | XMS REPORT ---
Author Author ANGELIA REBOLLAR [facility] eClinicalWorks Address Unknown Phone Unavailable Care Team Providers Care Wet And Dry Sugar Bin Operator Name Role Phone ANGELIA REBOLLAR CP Unavailable [...]
--- OUTSIDE RECORDS SUMMARY | 2017-11-04 10:45 | XMS REPORT ---
Author Author ANGELIA REBOLLRA [facility] eClinicalWorks Address Unknown Phone Unavailable Care Team Providers Care Microwave Oven Assembler Name Role Phone ANGELIA REBOLLAR CP [...]
--- OUTSIDE RECORDS SUMMARY | 2017-11-04 10:45 | XMS REPORT ---
Author Author ANGELIA REBOLLAR [facility] eClinicalWorks Address Unknown Phone Unavailable Care Team Providers Care Cost Report Clerk Name Role Phone ANGELIA REBOLLAR CP Unavailable [...]
--- OUTSIDE RECORDS SUMMARY | 2017-11-04 10:45 | XMS REPORT ---
Author Author ANGELIA REBOLLAR [facility] Address [address] [place] [address] Care Team Providers Care Marzipan Maker Name Role Phone ANGELIA REBOLLAR Unavailable PROBLEMS Type Condition ICD9-CM Code [id number] Code Onset Dates Condition Status SNOMED Code Problem Elevated blood pressure reading without diagnosis of hypertension 796.2 Active 822960345 Problem Tobacco abuse Z72.0 Active 35202251 Problem Anxiety F41.9 Active 09050163 Problem Lower abdominal pain R10.30 Active 27567726 Problem Irregular menstrual cycle N92.6 Active 66167068 Problem Fatigue, unspecified type R53.83 Active 67261841 Problem Constipation, unspecified constipation type K59.00 Active 63666991 ALLERGIES No Information SOCIAL HISTORY Never Assessed [...]
--- OUTSIDE RECORDS SUMMARY | 2017-11-04 10:45 | XMS REPORT ---
Author Author ANGELIA REBOLLAR [facility] e[employer] Address Unknown Phone Unavailable Care Team Providers Care Plater Production Name Role Phone ANGELIA REBOLLAR CP Unavailable [...]
--- OUTSIDE RECORDS SUMMARY | 2017-11-04 10:45 | XMS REPORT ---
Author ANGELIA Law [facility] e[employer] Address Unknown Phone Unavailable Care Team Providers Care Industrial Plant Custodian Name Role Phone ANGELIA REBOLLAR CP Unavailable Allergies No Known Allergies Problems Problem Type Condition ICD-9 Code Onset Dates Condition Status Problem Elevated [...]
--- OUTSIDE RECORDS SUMMARY | 2017-11-04 10:46 | XMS REPORT ---
Author Author CAITLIN SEYMOUR [employer] Address Unknown Phone Unavailable Care Team Providers Care Client Services Account Manager Name Role Phone CAITLIN SEYMOUR CP Unavailable Allergies, Adverse Reactions, Alerts Substance Reaction Event Type N.K.D.A. Info Not Available Non Drug Allergy Problems Problem Type Condition Code Onset Dates Condition Status Assessment Irregular menstrual cycle N92.6 Active Assessment Constipation, unspecified constipation type K59.00 Active Assessment Lower abdominal pain R10.30 Active Problem Anxiety F41.9 Active Problem Lower abdominal pain R10.30 Active Problem Irregular menstrual cycle N92.6 Active Problem Tobacco abuse Z72.0 Active Problem Elevated blood pressure reading without diagnosis of hypertension 796.2 Active Problem Constipation, unspecified constipation type K59.00 Active Problem Fatigue, unspecified type R53.83 Active Assessment Tobacco abuse Z72.0 Active Assessment Fatigue, unspecified type R53.83 Active Assessment Anxiety F41.9 Active Medications Medication Code System Code Instructions Start Date End Date Status Dosage Zoloft [facility] [address]-43 50 MG Orally Once a day 1 tablet MiraLax [facility] [address]-79 1 Bottles Orally Once a day Jul 05, 2015December 17 gm in 8 ounces of water Macrobid [facility] [address]-38 100 MG Orally every 12 hrs Jul 07, 2015 1 capsule with food Procedures Procedure Coding System Code Date COMPLETE CBC W/AUTO DIFF WBC CPT-4 35860 Jul 05, 2015 COMPREHEN METABOLIC PANEL CPT-4 85557 Jul 05, 2015 X-RAY EXAM OF ABDOMEN CPT-4 44050 Jul 05, 2015 VENIPUNCT, ROUTINE* CPT-4 86049 Jul 05, 2015 Office Visit, Est Pt., Level 3 CPT-4 65544 Jul 05, 2015 Vital Signs Date/Time: Jul 05, 2015 Temperature 98.4 F Weight 168 lbs Height 63 in BMI 29.76 Index Blood Pressure Diastolic 68 mmHg Blood Pressure Systolic 122 mmHg Cardiac Monitoring Heart Rate 80 bpm Results Name Result Date Reference Range Unit Abnormality Flag ROUTINE VENIPUNCTURE CBC Summary Purpose eClinicalWorks Submission
--- OUTSIDE RECORDS SUMMARY | 2017-11-04 10:46 | XMS REPORT ---
Author Author ANGELIA REBOLLAR [facility] e[employer] Address Unknown Phone Unavailable Care Team Providers Care Turnstile Collector Name Role Phone ANGELIA REBOLLAR CP Unavailable [...]
--- OUTSIDE RECORDS SUMMARY | 2017-11-04 10:46 | XMS REPORT ---
Author Author ANGELIA REBOLLAR [facility] Address [address] [place] [address] Care Team Providers Care Manager Hospice Name Role Phone ANGELIA REBOLLAR Unavailable PROBLEMS Type Condition ICD9-CM Code [id number] Code Onset Dates Condition Status SNOMED Code Problem Elevated blood pressure reading without diagnosis of hypertension 796.2 Active 474347273 Problem Tobacco abuse Z72.0 Active 95517416 Problem Anxiety F41.9 Active 32945438 Problem Lower abdominal pain R10.30 Active 93803743 Problem Irregular menstrual cycle N92.6 Active 85624251 Problem Fatigue, unspecified type R53.83 Active 33518697 Problem Constipation, unspecified constipation type K59.00 Active [id number] ALLERGIES No Information SOCIAL HISTORY Never Assessed [...]
--- OUTSIDE RECORDS SUMMARY | 2017-11-04 10:48 | XMS REPORT | Continuity of Care Document ---
Author Author [facility] Address Unknown Phone Unavailable Allergies Active Description Code Type Severity Reaction Onset Reported/Identified Relationship to Patient Clinical Status Yes No Known Drug Allergies [id number] Drug Allergy Unknown N/A 04/19/2013 Medications There is no data. Problems Date Dx Coded Attending Type Code Diagnosis Diagnosed By 02/06/2011 719.41 joint pain, localized in the left shoulder 02/06/2011 719.41 joint pain, localized in the left shoulder 02/06/2011 ANGELIA REBOLLAR DO 719.41 joint pain, localized in the left shoulder 02/06/2011 NELLY HELLER APRN 719.41 joint pain, localized in the left shoulder 02/06/2011 ENLLY HELLER APRN 719.41 joint pain, localized in the left shoulder 02/06/2011 WILMAN PEÑALOZA MD 719.41 joint pain, localized in the left shoulder 02/06/2011 WILMAN PEÑALOZA MD 719.41 joint pain, localized in the left shoulder 02/06/2011 WILMAN PEÑALOZA MD 719.41 joint pain, localized in the left shoulder 02/06/2011 WILMAN PEÑALOZA MD 719.41 joint pain, localized in the left shoulder 02/06/2011 WILMAN PEÑALOZA MD 719.41 joint pain, localized in the left shoulder 02/06/2011 WILMAN PEÑALOZA MD 719.41 joint pain, localized in the left shoulder 02/06/2011 WILMAN PEÑALOZA MD 719.41 JOINT PAIN, LOCALIZED IN THE LEFT SHOULDER 02/06/2011 ANGELIA REBOLLAR DO 719.41 JOINT PAIN, LOCALIZED IN THE LEFT SHOULDER 02/06/2011 ANGELIA REBOLLAR DO 719.41 JOINT PAIN, LOCALIZED IN THE LEFT SHOULDER 02/06/2011 ANGELIA REBOLLAR DO 719.41 JOINT PAIN, LOCALIZED IN THE LEFT SHOULDER 02/06/2011 REBOLLAR DO, ANGELIA K 719.41 JOINT PAIN, LOCALIZED IN THE LEFT SHOULDER 02/06/2011 REBOLLAR DO, ANGELIA K 719.41 JOINT PAIN, LOCALIZED IN THE LEFT SHOULDER 02/06/2011 PINA PROFESSIONAL ORGANIZER, NELLY A 719.41 JOINT PAIN, LOCALIZED IN THE LEFT SHOULDER 02/06/2011 REBOLLAR DO, ANGELIA K 719.41 JOINT PAIN, LOCALIZED IN THE LEFT SHOULDER 02/06/2011 PINA PROFESSIONAL ORGANIZER, NELLY A 719.41 JOINT PAIN, LOCALIZED IN THE LEFT SHOULDER 02/06/2011 PINA PROFESSIONAL ORGANIZER, NELLY A 719.41 JOINT PAIN, LOCALIZED IN THE LEFT SHOULDER 02/20/2011 831.00 CLOSED DISLOCATION OF SHOULDER UNSPECIFIED SITE 02/20/2011 831.00 CLOSED DISLOCATION OF SHOULDER UNSPECIFIED SITE 02/20/2011 REBOLLAR DO, ANGELIA K 831.00 CLOSED DISLOCATION OF SHOULDER UNSPECIFIED SITE 02/20/2011 PINA PROFESSIONAL ORGANIZER, NELLY A 831.00 CLOSED DISLOCATION OF SHOULDER UNSPECIFIED SITE 02/20/2011 PINA PROFESSIONAL ORGANIZER NELLY A 831.00 CLOSED DISLOCATION OF SHOULDER UNSPECIFIED SITE 02/20/2011 WILMAN PEÑALOZA MD N 831.00 CLOSED DISLOCATION OF SHOULDER UNSPECIFIED SITE 02/20/2011 WILMAN PEÑALOZA MD N 831.00 CLOSED DISLOCATION OF SHOULDER UNSPECIFIED SITE 02/20/2011 WILMAN PEÑALOZA MD N 831.00 CLOSED DISLOCATION OF SHOULDER UNSPECIFIED SITE 02/20/2011 WILMAN PEÑALOZA MD N 831.00 CLOSED DISLOCATION OF SHOULDER UNSPECIFIED SITE 02/20/2011 WILMAN PEÑALOZA MD N 831.00 CLOSED DISLOCATION OF SHOULDER UNSPECIFIED SITE 02/20/2011 WILMAN PEÑALOZA MD N 831.00 CLOSED DISLOCATION OF SHOULDER UNSPECIFIED SITE 02/20/2011 WILMAN PEÑALOZA MD N 831.00 CLOSED DISLOCATION OF SHOULDER UNSPECIFIED SITE 02/20/2011 REBOLLAR DO ANGELIA K 831.00 CLOSED DISLOCATION OF SHOULDER UNSPECIFIED SITE 02/20/2011 REBOLLAR DO, ANGELIA K 831.00 CLOSED DISLOCATION OF SHOULDER UNSPECIFIED SITE 02/20/2011 REBOLLAR DO, ANGELIA K 831.00 CLOSED DISLOCATION OF SHOULDER UNSPECIFIED SITE 02/20/2011 REBOLLAR DO, ANGELIA K 831.00 CLOSED DISLOCATION OF SHOULDER UNSPECIFIED SITE 02/20/2011 ANGELIA REBOLLAR DO K 831.00 CLOSED DISLOCATION OF SHOULDER UNSPECIFIED SITE 02/20/2011 EDD HELLER APRNIDI A 831.00 CLOSED DISLOCATION OF SHOULDER UNSPECIFIED SITE 02/20/2011 ANGELIA REBOLLAR DO K 831.00 CLOSED DISLOCATION OF SHOULDER UNSPECIFIED SITE 02/20/2011 EDD HELLER APRNIDI A 831.00 CLOSED DISLOCATION OF SHOULDER UNSPECIFIED SITE 02/20/2011 EDD HELLER APRNIDI A 831.00 CLOSED DISLOCATION OF SHOULDER UNSPECIFIED SITE 07/23/2011 V25.01 Oral Contraceptives 07/23/2011 V65.45 Anticipatory Guidance: Unsafe Sexual Practices 07/23/2011 V74.5 STD SCREEN 07/23/2011 V25.01 Oral Contraceptives 07/23/2011 V65.45 Anticipatory Guidance: Unsafe Sexual Practices 07/23/2011 V74.5 STD SCREEN 07/23/2011 REBOLLAR ANGELIA GRAHAM K V25.01 Oral Contraceptives 07/23/2011 KETURAH GRAHAMANGELIA V65.45 Anticipatory Guidance: Unsafe Sexual Practices 07/23/2011 KETURAH GRAHAM ANGELIA K V74.5 STD SCREEN 07/23/2011 PINA APRN, NELLY A V25.01 Oral Contraceptives 07/23/2011 PINA APRN, NELLY A V65.45 Anticipatory Guidance: Unsafe Sexual Practices 07/23/2011 PINA LARSEN, NELLY A V74.5 STD SCREEN 07/23/2011 PINA APRN, NELLY A V25.01 Oral Contraceptives 07/23/2011 PINA LARSEN, NELLY A V65.45 Anticipatory Guidance: Unsafe Sexual Practices 07/23/2011 PINA PROFESSIONAL ORGANIZER, NELLY A V74.5 STD SCREEN 07/23/2011 WILMAN PEÑALOZA MD V25.01 Oral Contraceptives 07/23/2011 WILMAN PEÑALOZA MD V65.45 Anticipatory Guidance: Unsafe Sexual Practices 07/23/2011 WILMAN PEÑALOZA MD V74.5 STD SCREEN 07/23/2011 WILMAN PEÑALOZA MD V25.01 Oral Contraceptives 07/23/2011 WILMAN PEÑALOZA MD V65.45 Anticipatory Guidance: Unsafe Sexual Practices 07/23/2011 WILMAN PEÑALOZA MD V74.5 STD SCREEN 07/23/2011 WILMAN PEÑALOZA MD N V25.01 Oral Contraceptives 07/23/2011 WILMAN PEÑALOZA MD V65.45 Anticipatory Guidance: Unsafe Sexual Practices 07/23/2011 WILMAN PEÑALOZA MD V74.5 STD SCREEN 07/23/2011 WILMAN PEÑALOZA MD V25.01 Oral Contraceptives 07/23/2011 WILMAN PEÑALOZA MD V65.45 Anticipatory Guidance: Unsafe Sexual Practices 07/23/2011 WILMAN PEÑALOZA MD V74.5 STD SCREEN 07/23/2011 WILMAN PEÑALOZA MD V25.01 Oral Contraceptives 07/23/2011 WILMAN PEÑALOZA MD V65.45 Anticipatory Guidance: Unsafe Sexual Practices 07/23/2011 WILMAN PEÑALOZA MD V74.5 STD SCREEN 07/23/2011 WILMAN PEÑALOZA MD V25.01 Oral Contraceptives 07/23/2011 WILMAN PEÑALOZA MD V65.45 Anticipatory Guidance: Unsafe Sexual Practices 07/23/2011 WILMAN PEÑALOZA MD V74.5 STD SCREEN 07/23/2011 WILMAN PEÑALOZA MD V25.01 ORAL CONTRACEPTIVES 07/23/2011 WILMAN PEÑALOZA MD V65.45 ANTICIPATORY GUIDANCE: UNSAFE SEXUAL PRACTICES 07/23/2011 WILMAN PEÑALOZA MD N V74.5 STD SCREEN 07/23/2011 REBOLLAR DO ANGELIA K V25.01 ORAL CONTRACEPTIVES 07/23/2011 REBOLLAR DO ANGELIA K V65.45 ANTICIPATORY GUIDANCE: UNSAFE SEXUAL PRACTICES 07/23/2011 REBOLLAR DO, ANGELIA K V74.5 STD SCREEN 07/23/2011 REBOLLAR DO, ANGELIA K V25.01 ORAL CONTRACEPTIVES 07/23/2011 REBOLLAR DO, ANGELIA K V65.45 ANTICIPATORY GUIDANCE: UNSAFE SEXUAL PRACTICES 07/23/2011 REBOLLAR DO, ANGELIA K V74.5 STD SCREEN 07/23/2011 REBOLLAR DO, ANGELIA K V25.01 ORAL CONTRACEPTIVES 07/23/2011 REBOLLAR DO, ANGELIA K V65.45 ANTICIPATORY GUIDANCE: UNSAFE SEXUAL PRACTICES 07/23/2011 REBOLLAR DO, ANGELIA K V74.5 STD SCREEN 07/23/2011 REBOLLAR DO ANGELIA K V25.01 ORAL CONTRACEPTIVES 07/23/2011 REBOLLAR DO, ANGELIA K V65.45 ANTICIPATORY GUIDANCE: UNSAFE SEXUAL PRACTICES 07/23/2011 REBOLLAR DONAVIA K V74.5 STD SCREEN 07/23/2011 REBOLLAR DONAVIA K V25.01 ORAL CONTRACEPTIVES 07/23/2011 REBOLLAR DONAVIA K V65.45 ANTICIPATORY GUIDANCE: UNSAFE SEXUAL PRACTICES 07/23/2011 REBOLLAR DO ANGELIA K V74.5 STD SCREEN 07/23/2011 PINA PROFESSIONAL ORGANIZER, NELLY A V25.01 ORAL CONTRACEPTIVES 07/23/2011 PINA PROFESSIONAL ORGANIZER, NELLY A V65.45 ANTICIPATORY GUIDANCE: UNSAFE SEXUAL PRACTICES 07/23/2011 PINA PROFESSIONAL ORGANIZER, NELLY A V74.5 STD SCREEN 07/23/2011 REBOLLAR NAVI GRAHAMA K V25.01 ORAL CONTRACEPTIVES 07/23/2011 REBOLLAR DO ANGELIA K V65.45 ANTICIPATORY GUIDANCE: UNSAFE SEXUAL PRACTICES 07/23/2011 REBOLLAR DO ANGELIA K V74.5 STD SCREEN 07/23/2011 PINA PROFESSIONAL ORGANIZER, NELLY A V25.01 ORAL CONTRACEPTIVES 07/23/2011 PINA PROFESSIONAL ORGANIZER, NELLY A V65.45 ANTICIPATORY GUIDANCE: UNSAFE SEXUAL PRACTICES 07/23/2011 PINA PROFESSIONAL ORGANIZER, NELLY A V74.5 STD SCREEN 07/23/2011 PINA PROFESSIONAL ORGANIZER, NELLY A V25.01 ORAL CONTRACEPTIVES 07/23/2011 PINA PROFESSIONAL ORGANIZER, NELLY A V65.45 ANTICIPATORY GUIDANCE: UNSAFE SEXUAL PRACTICES 07/23/2011 PINA PROFESSIONAL ORGANIZER, NELLY A V74.5 STD SCREEN 11/04/2011 V72.41 EXAMINATION OR TEST NEGATIVE RESULT 11/04/2011 V72.41 EXAMINATION OR TEST NEGATIVE RESULT 11/04/2011 ANGELIA REBOLLAR DO K V72.41 EXAMINATION OR TEST NEGATIVE RESULT 11/04/2011 PINA PROFESSIONAL ORGANIZER, NELLY A V72.41 EXAMINATION OR TEST NEGATIVE RESULT 11/04/2011 PINA APRN, NELLY A V72.41 EXAMINATION OR TEST NEGATIVE RESULT 11/04/2011 WILMAN PEÑALOZA MD V72.41 EXAMINATION OR TEST NEGATIVE RESULT 11/04/2011 WILMAN PEÑALOZA MD V72.41 EXAMINATION OR TEST NEGATIVE RESULT 11/04/2011 WILMAN PEÑALOZA MD V72.41 EXAMINATION OR TEST NEGATIVE RESULT 11/04/2011 WILMAN PEÑALOZA MD V72.41 EXAMINATION OR TEST NEGATIVE RESULT 11/04/2011 WILMAN PEÑALOZA MD V72.41 EXAMINATION OR TEST NEGATIVE RESULT 11/04/2011 WILMAN PEÑALOZA MD V72.41 EXAMINATION OR TEST NEGATIVE RESULT 11/04/2011 WILMAN PEÑALOZA MD V72.41 EXAMINATION OR TEST NEGATIVE RESULT 11/04/2011 REBOLLAR DO ANGELIA K V72.41 EXAMINATION OR TEST NEGATIVE RESULT 11/04/2011 REBOLLAR DO ANGELIA K V72.41 EXAMINATION OR TEST NEGATIVE RESULT 11/04/2011 REBOLLAR DO, ANGELIA K V72.41 EXAMINATION OR TEST NEGATIVE RESULT 11/04/2011 REBOLLAR DO ANGELIA K V72.41 EXAMINATION OR TEST NEGATIVE RESULT 11/04/2011 REBOLLAR DO, ANGELIA K V72.41 EXAMINATION OR TEST NEGATIVE RESULT 11/04/2011 EDD HELLER APRNIDI A V72.41 EXAMINATION OR TEST NEGATIVE RESULT 11/04/2011 REBOLLAR DO ANGELIA K V72.41 EXAMINATION OR TEST NEGATIVE RESULT 11/04/2011 EDD HELLER APRNIDI A V72.41 EXAMINATION OR TEST NEGATIVE RESULT 11/04/2011 PINA LARSEN NELLY A V72.41 EXAMINATION OR TEST NEGATIVE RESULT 01/06/2012 461.9 SINUSITIS ACUTE 01/06/2012 786.2 cough 01/06/2012 461.9 SINUSITIS ACUTE 01/06/2012 786.2 cough 01/06/2012 ANGELIA REBOLLAR DO K 461.9 SINUSITIS ACUTE 01/06/2012 NAVI REBOLLAR DOA K 786.2 cough 01/06/2012 PINA LARSEN, NELLY A 461.9 SINUSITIS ACUTE 01/06/2012 PINA LARSEN, NELLY A 786.2 cough 01/06/2012 PINA LARSEN, NELLY A 461.9 SINUSITIS ACUTE 01/06/2012 PINA LARSEN NELLY A 786.2 cough 01/06/2012 WILMAN PEÑALOZA MD 461.9 SINUSITIS ACUTE 01/06/2012 WILMAN PEÑALOAZ MD 786.2 cough 01/06/2012 WILMAN PEÑALOZA MD 461.9 SINUSITIS ACUTE 01/06/2012 WILMAN PEÑALOZA MD N 786.2 COUGH 01/06/2012 ANABELA BLACKBURN, WILMAN N 461.9 SINUSITIS ACUTE 01/06/2012 WILMAN PEÑALOZA MD N 786.2 COUGH 01/06/2012 ANABELA BLACKBURN, WILMAN N 461.9 SINUSITIS ACUTE 01/06/2012 ANABELA BLAKCBURN, WILMAN N 786.2 COUGH 01/06/2012 ANABELA BLACKBURN, WILMAN N 461.9 SINUSITIS ACUTE 01/06/2012 ANABELA BLACKBURN, WILMAN N 786.2 COUGH 01/06/2012 ANABELA BLACKBURN, WILMAN N 461.9 SINUSITIS ACUTE 01/06/2012 WILMAN PEÑALOZA MD N 786.2 COUGH 01/06/2012 ANABELA BLACKBURN, WILMAN N 461.9 SINUSITIS ACUTE 01/06/2012 WILMAN PEÑALOZA MD N 786.2 COUGH 01/06/2012 REBOLLAR DO, ANGELIA K 461.9 SINUSITIS ACUTE 01/06/2012 REBOLLAR DO, ANGELIA K 786.2 COUGH 01/06/2012 REBOLLAR DO, ANGELIA K 461.9 SINUSITIS ACUTE 01/06/2012 REBOLLAR DO, ANGELIA K 786.2 COUGH 01/06/2012 REBOLLAR DO, ANGELIA K 461.9 SINUSITIS ACUTE 01/06/2012 REBOLLAR DO, ANGELIA K 786.2 COUGH 01/06/2012 REBOLLAR DO, ANGELIA K 461.9 SINUSITIS ACUTE 01/06/2012 REBOLLAR DO, ANGELIA K 786.2 COUGH 01/06/2012 REBOLLAR DO, ANGELIA K 461.9 SINUSITIS ACUTE 01/06/2012 REBOLLAR DO, ANGELIA K 786.2 COUGH 01/06/2012 PINA PROFESSIONAL ORGANIZER, NELLY A 461.9 SINUSITIS ACUTE 01/06/2012 PINA PROFESSIONAL ORGANIZER, NELLY A 786.2 COUGH 01/06/2012 REBOLLAR DO, ANGELIA K 461.9 SINUSITIS ACUTE 01/06/2012 REBOLLAR DO, ANGELIA K 786.2 COUGH 01/06/2012 PINA PROFESSIONAL ORGANIZER, NELLY A 461.9 SINUSITIS ACUTE 01/06/2012 PINA PROFESSIONAL ORGANIZER, NELLY A 786.2 COUGH 01/06/2012 PINA PROFESSIONAL ORGANIZER, NELLY A 461.9 SINUSITIS ACUTE 01/06/2012 PINANELLY Steele APRN A 786.2 COUGH 01/15/2012 112.1 CANDIDIASIS VAGINAL 01/15/2012 112.1 CANDIDIASIS VAGINAL 01/15/2012 REBOLLAR DO, ANGELIA K 112.1 CANDIDIASIS VAGINAL 01/15/2012 PINANELLY Steele APRN A 112.1 CANDIDIASIS VAGINAL 01/15/2012 PINANELLY Steele APRN A 112.1 CANDIDIASIS VAGINAL 01/15/2012 WILMAN PEÑALOZA MD N 112.1 CANDIDIASIS VAGINAL 01/15/2012 WILMAN PEÑALOZA MD N 112.1 CANDIDIASIS VAGINAL 01/15/2012 WILMAN PEÑALOZA MD N 112.1 CANDIDIASIS VAGINAL 01/15/2012 WILMAN PEÑALOZA MD N 112.1 CANDIDIASIS VAGINAL 01/15/2012 WILMAN PEÑALOZA MD N 112.1 CANDIDIASIS VAGINAL 01/15/2012 WILMAN PEÑALOZA MD N 112.1 CANDIDIASIS VAGINAL 01/15/2012 WILMAN PEÑALOZA MD N 112.1 CANDIDIASIS VAGINAL 01/15/2012 REBOLLAR DO, ANGELIA K 112.1 CANDIDIASIS VAGINAL 01/15/2012 REBOLLAR DO, ANGELIA K 112.1 CANDIDIASIS VAGINAL 01/15/2012 REBOLLAR DO, ANGELIA K 112.1 CANDIDIASIS VAGINAL 01/15/2012 REBOLLAR DO, ANGELIA K 112.1 CANDIDIASIS VAGINAL 01/15/2012 REBOLLAR DO, ANGELIA K 112.1 CANDIDIASIS VAGINAL 01/15/2012 PINANELLY tSeele APRN A 112.1 CANDIDIASIS VAGINAL 01/15/2012 REBOLLAR DO, ANGELIA K 112.1 CANDIDIASIS VAGINAL 01/15/2012 PINANELLY Steele APRN A 112.1 CANDIDIASIS VAGINAL 01/15/2012 [facility] NELLY LARSEN A 112.1 CANDIDIASIS VAGINAL 01/20/2012 477.9 ALLERGIC RHINITIS 01/20/2012 477.9 ALLERGIC RHINITIS 01/20/2012 REBOLLAR DO, ANGELIA K 477.9 ALLERGIC RHINITIS 01/20/2012 PINANELLY Steele APRN A 477.9 ALLERGIC RHINITIS 01/20/2012 PINANELLY Steele APRN A 477.9 ALLERGIC RHINITIS 01/20/2012 WILMAN PEÑALOZA MD 477.9 ALLERGIC RHINITIS 01/20/2012 WILMAN PEÑALOZA MD 477.9 ALLERGIC RHINITIS 01/20/2012 ANABELA MD, WILMAN N 477.9 ALLERGIC RHINITIS 01/20/2012 ANABELA BLACKBURN, WILMAN N 477.9 ALLERGIC RHINITIS 01/20/2012 ANABELA BLACKBURN, WILMAN N 477.9 ALLERGIC RHINITIS 01/20/2012 ANABELA BLACKBURN, WILMAN N 477.9 ALLERGIC RHINITIS 01/20/2012 ANABELA BLACKBURN, WILMAN N 477.9 ALLERGIC RHINITIS 01/20/2012 REBOLLAR DO, ANGELIA K 477.9 ALLERGIC RHINITIS 01/20/2012 REBOLLAR DO, ANGELIA K 477.9 ALLERGIC RHINITIS 01/20/2012 REBOLLAR DO, ANGELIA K 477.9 ALLERGIC RHINITIS 01/20/2012 REBOLLAR DO, ANGELIA K 477.9 ALLERGIC RHINITIS 01/20/2012 REBOLLAR DO, ANGELIA K 477.9 ALLERGIC RHINITIS 01/20/2012 PINA PROFESSIONAL ORGANIZER, NELLY A 477.9 ALLERGIC RHINITIS 01/20/2012 REBOLLAR DO, ANGELIA K 477.9 ALLERGIC RHINITIS 01/20/2012 PINA PROFESSIONAL ORGANIZER, NELLY A 477.9 ALLERGIC RHINITIS 01/20/2012 PINA PROFESSIONAL ORGANIZER, NELLY A 477.9 ALLERGIC RHINITIS 01/27/2012 079.98 CHLAMYDIA 01/27/2012 079.98 CHLAMYDIA 01/27/2012 REBOLLAR DO, ANGELIA K 079.98 CHLAMYDIA 01/27/2012 PINA PROFESSIONAL ORGANIZER, NELLY A 079.98 CHLAMYDIA 01/27/2012 PINA PROFESSIONAL ORGANIZER, NELLY A 079.98 CHLAMYDIA 01/27/2012 WILMAN PEÑALOZA MD N 079.98 CHLAMYDIA 01/27/2012 WILMAN PEÑALOZA MD N 079.98 CHLAMYDIA 01/27/2012 WILMAN PEÑALOZA MD N 079.98 CHLAMYDIA 01/27/2012 WILMAN PEÑALOZA MD N 079.98 CHLAMYDIA 01/27/2012 WILMAN PEÑALOZA MD N 079.98 CHLAMYDIA 01/27/2012 WILMAN PEÑALOZA MD N 079.98 CHLAMYDIA 01/27/2012 WILMAN PEÑALOZA MD N 079.98 CHLAMYDIA 01/27/2012 ANGELIA REBOLLAR DO K 079.98 CHLAMYDIA 01/27/2012 REBOLLAR DO, ANGELIA K 079.98 CHLAMYDIA 01/27/2012 REBOLLAR DO, ANGELIA K 079.98 CHLAMYDIA 01/27/2012 REBOLLAR DO, ANGELIA K 079.98 CHLAMYDIA 01/27/2012 REBOLLAR DO, ANGELIA K 079.98 CHLAMYDIA 01/27/2012 PINA PROFESSIONAL ORGANIZER, NELLY A 079.98 CHLAMYDIA 01/27/2012 REBOLLAR DO, ANGELIA K 079.98 CHLAMYDIA 01/27/2012 PINA PROFESSIONAL ORGANIZER, NELLY A 079.98 CHLAMYDIA 01/27/2012 PINA PROFESSIONAL ORGANIZER, NELLY A 079.98 CHLAMYDIA 04/20/2013 [facility], FELIPE Ordoñez Ot 540.9 ACUTE APPENDICITIS NOS 05/27/2013 REBOLLAR DONAVIA K V72.42 TEST POSITIVE RESULT 05/27/2013 PINA PROFESSIONAL ORGANIZER, NELLY A V72.42 TEST POSITIVE RESULT 05/27/2013 EDD HELLER APRNIDI A V72.42 TEST POSITIVE RESULT 05/27/2013 WILMAN PEÑALOZA MD V72.42 TEST POSITIVE RESULT 05/27/2013 WILMAN PEÑALOZA MD V72.42 TEST POSITIVE RESULT 05/27/2013 WILMAN PEÑALOZA MD V72.42 TEST POSITIVE RESULT 05/27/2013 WILMAN PEÑALOZA MD V72.42 TEST POSITIVE RESULT 05/27/2013 WILMAN PEÑALOZA MD V72.42 TEST POSITIVE RESULT 05/27/2013 WILMAN PEÑALOZA MD V72.42 TEST POSITIVE RESULT 05/27/2013 WILMAN PEÑALOZA MD V72.42 TEST POSITIVE RESULT 05/27/2013 REBOLLAR DONAVIA K V72.42 TEST POSITIVE RESULT 05/27/2013 REBOLLAR DONAVIA K V72.42 TEST POSITIVE RESULT 05/27/2013 REBOLLAR DO ANGELIA K V72.42 TEST POSITIVE RESULT 05/27/2013 REBOLLAR DO, ANGELIA K V72.42 TEST POSITIVE RESULT 05/27/2013 REBOLLAR DO ANGELIA K V72.42 TEST POSITIVE RESULT 05/27/2013 PINAEDD Steele APRNIDI A V72.42 TEST POSITIVE RESULT 05/27/2013 REBOLLAR DONAVIA K V72.42 TEST POSITIVE RESULT 05/27/2013 PINABRIAN LARSEN, NELLY A V72.42 TEST POSITIVE RESULT 05/27/2013 EDD HELLER APRNIDI A V72.42 TEST POSITIVE RESULT 06/27/2013 PINA PROFESSIONAL ORGANIZER, NELLY A V22.0 , NORMAL FIRST 06/27/2013 PINA PROFESSIONAL ORGANIZER, NELLY A V22.0 , NORMAL FIRST 06/27/2013 WILMAN PEÑALOZA MD N V22.0 , NORMAL FIRST 06/27/2013 WILMAN PEÑALOZA MD N V22.0 , NORMAL FIRST 06/27/2013 WILMAN PEÑALOZA MD N V22.0 , NORMAL FIRST 06/27/2013 WILMAN PEÑALOZA MD N V22.0 , NORMAL FIRST 06/27/2013 WILMAN PEÑALOZA MD N V22.0 , NORMAL FIRST 06/27/2013 WILMAN PEÑALOZA MD N V22.0 , NORMAL FIRST 06/27/2013 WILMAN PEÑALOZA MD N V22.0 , NORMAL FIRST 06/27/2013 REBOLLAR DO, ANGELIA K V22.0 , NORMAL FIRST 06/27/2013 REBOLLAR DO, ANGELIA K V22.0 , NORMAL FIRST 06/27/2013 REBOLLAR DO, ANGELIA K V22.0 , NORMAL FIRST 06/27/2013 REBOLLAR DO, ANGELIA K V22.0 , NORMAL FIRST 06/27/2013 REBOLLAR DO, ANGELIA K V22.0 , NORMAL FIRST 06/27/2013 PINA PROFESSIONAL ORGANIZER, NELLY A V22.0 , NORMAL FIRST 06/27/2013 REBOLLAR DO, ANGELIA K V22.0 , NORMAL FIRST 06/27/2013 PINA PROFESSIONAL ORGANIZER, NELLY A V22.0 , NORMAL FIRST 06/27/2013 PINA PROFESSIONAL ORGANIZER, NELLY A V22.0 , NORMAL FIRST 07/25/2013 PINA APRN, NELLY A 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 07/25/2013 WILMAN PEÑALOZA MD N 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 07/25/2013 WILMAN PEÑALOZA MD N 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 07/25/2013 WILMAN PEÑALOZA MD N 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 07/25/2013 WILMAN PEÑALOZA MD N 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 07/25/2013 WILMAN PEÑALOZA MD N 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 07/25/2013 WILMAN PEÑALOZA MD N 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 07/25/2013 WILMAN PEÑALOZA MD N 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 07/25/2013 KETURAH DO, ANGELIA K 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 07/25/2013 REBOLLAR DO, ANGELIA K 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 07/25/2013 REBOLLAR DO, ANGELIA K 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 07/25/2013 REBOLLAR DO, ANGELIA K 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 07/25/2013 KETURAH GRAHAM, ANGELIA K 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 07/25/2013 PINA LARSEN, NELLY A 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 07/25/2013 KETURAH GRAHAM, ANGELIA K 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 07/25/2013 PINA LARSEN NELLY A 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 07/25/2013 PINA LARSEN NELLY A 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 09/16/2013 DAVID BLACKBURN, VICTORINA Albert Ot 599.0 URIN TRACT INFECTION NOS 09/16/2013 DAVID BLACKBURN, VICTORINA Albert Ot 646.63 INFECTION-ANTEPARTUM 09/20/2013 WILMAN PEÑALOZA MD V04.81 FLU SHOT 09/20/2013 WILMAN PEÑALOZA MD V04.81 FLU SHOT 09/20/2013 WILMAN PEÑALOZA MD V04.81 FLU SHOT 09/20/2013 WILMAN PEÑALOZA MD V04.81 FLU SHOT 09/20/2013 WILMAN PEÑALOZA MD V04.81 FLU SHOT 09/20/2013 WILMAN PEÑALOZA MD V04.81 FLU SHOT 09/20/2013 ANGELIA REBOLLAR DO V04.81 FLU SHOT 09/20/2013 ANGELIA REBOLLAR DO K V04.81 FLU SHOT 09/20/2013 REBOLLAR NAVI GRAHAMA K V04.81 FLU SHOT 09/20/2013 REBOLLAR NAVI GRAHAMA K V04.81 FLU SHOT 09/20/2013 REBOLLAR DO, ANGELIA K V04.81 FLU SHOT 09/20/2013 PINA PROFESSIONAL ORGANIZER, NELLY A V04.81 FLU SHOT 09/20/2013 REBOLLAR DO, ANGELIA K V04.81 FLU SHOT 09/20/2013 PINA PROFESSIONAL ORGANIZER, NELLY A V04.81 FLU SHOT 09/20/2013 PINA PROFESSIONAL ORGANIZER, NELLY A V04.81 FLU SHOT 10/17/2013 REBOLLAR DO, ANGELIA K Ot 646.83 PREG COMPL NEC-ANTEPART 10/17/2013 REBOLLAR DO, ANGELIA K Ot 789.09 ABDOMINAL PAIN, OTHER SPECIFIED SITE 11/15/2013 WILMAN PEÑALOZA MD V06.1 TDAP DX 11/15/2013 WILMAN PEÑALOZA MD V06.1 TDAP DX 11/15/2013 WILMAN PEÑALOZA MD V06.1 TDAP DX 11/15/2013 WILMAN PEÑALOZA MD V06.1 TDAP DX 11/15/2013 REBOLLAR DO, ANGELIA K V06.1 TDAP DX 11/15/2013 REBOLLAR DO, ANGELIA K V06.1 TDAP DX 11/15/2013 REBOLLAR DO, ANGELIA K V06.1 TDAP DX 11/15/2013 REBOLLAR DO, ANGELIA K V06.1 TDAP DX 11/15/2013 REBOLLAR DO, ANGELIA K V06.1 TDAP DX 11/15/2013 PINA PROFESSIONAL ORGANIZER, NELLY A V06.1 TDAP DX 11/15/2013 REBOLLAR DO, ANGELIA K V06.1 TDAP DX 11/15/2013 PINA PROFESSIONAL ORGANIZER, NELLY A V06.1 TDAP DX 11/15/2013 PINA PROFESSIONAL ORGANIZER, NELLY A V06.1 TDAP DX 11/29/2013 REBOLLAR DO, ANGELIA K Ot 658.03 OLIGOHYDRAMNIOS-ANTEPAR 11/30/2013 WILMAN PEÑALOZA MD N 642.90 COMPL OF - HTN/PIH 11/30/2013 WILMAN PEÑALOZA MD 644.00 LABOR 11/30/2013 WILMAN PEÑALOZA MD 655.73 DECREASED MOVEMENT 11/30/2013 WILMAN PEÑALOZA MD 642.90 COMPL OF - HTN/PIH 11/30/2013 WILMAN PEÑALOZA MD N 644.00 LABOR 11/30/2013 WILMAN PEÑALOZA MD N 655.73 DECREASED MOVEMENT 11/30/2013 WILMAN PEÑALOZA MD N 642.90 COMPL OF - HTN/PIH 11/30/2013 WILMAN PEÑALOZA MD N 644.00 LABOR 11/30/2013 WILMAN PEÑALOZA MD N 655.73 DECREASED MOVEMENT 11/30/2013 REBOLLAR DO, ANGELIA K 642.90 COMPL OF - HTN/PIH 11/30/2013 REBOLLAR DO, ANGELIA K 644.00 LABOR 11/30/2013 REBOLLAR DO, ANGELIA K 655.73 DECREASED MOVEMENT 11/30/2013 REBOLLAR DO, ANGELIA K 642.90 COMPL OF - HTN/PIH 11/30/2013 REBOLLAR DO, ANGELIA K 644.00 LABOR 11/30/2013 REBOLLAR DO, ANGELIA K 655.73 DECREASED MOVEMENT 11/30/2013 REBOLLAR DO, ANGELIA K 642.90 COMPL OF - HTN/PIH 11/30/2013 REBOLLAR DO, ANGELIA K 644.00 LABOR 11/30/2013 REBOLLAR DO, ANGELIA K 655.73 DECREASED MOVEMENT 11/30/2013 REBOLLAR DO, ANGELIA K 642.90 COMPL OF - HTN/PIH 11/30/2013 REBOLLAR DO, ANGELIA K 644.00 LABOR 11/30/2013 REBOLLAR DO, ANGELAI K 655.73 DECREASED MOVEMENT 11/30/2013 REBOLLAR DO, ANGELIA K 642.90 COMPL OF - HTN/PIH 11/30/2013 REBOLLAR DO, ANGELIA K 644.00 LABOR 11/30/2013 REBOLLAR DO, ANGELIA K 655.73 DECREASED MOVEMENT 11/30/2013 PINA PROFESSIONAL ORGANIZER, NELLY A 642.90 COMPL OF - HTN/PIH 11/30/2013 PINA PROFESSIONAL ORGANIZER, NELLY A 644.00 LABOR 11/30/2013 PINA PROFESSIONAL ORGANIZER, NELLY A 655.73 DECREASED MOVEMENT 11/30/2013 REBOLLAR DO, ANGELIA K 642.90 COMPL OF - HTN/PIH 11/30/2013 REBOLLAR DO, ANGELIA K 644.00 LABOR 11/30/2013 REBOLLAR DO, ANGELIA K 655.73 DECREASED MOVEMENT 11/30/2013 PINA PROFESSIONAL ORGANIZER, NELLY A 642.90 COMPL OF - HTN/PIH 11/30/2013 PINA PROFESSIONAL ORGANIZER, NELLY A 644.00 LABOR 11/30/2013 PINA PROFESSIONAL ORGANIZER, NELLY A 655.73 DECREASED MOVEMENT 11/30/2013 PINA PROFESSIONAL ORGANIZER, NELLY A 642.90 COMPL OF - HTN/PIH 11/30/2013 PINA PROFESSIONAL ORGANIZER, NELLY A 644.00 LABOR 11/30/2013 PINA PROFESSIONAL ORGANIZER, NELLY A 655.73 DECREASED MOVEMENT 12/01/2013 WILMAN PEÑALOZA MD 658.00 OLIGOHYDRAMNIOS UNSPECIFIED TO EPISODE OF CARE 12/01/2013 WILMAN PEÑALOZA MD 658.00 OLIGOHYDRAMNIOS UNSPECIFIED TO EPISODE OF CARE 12/01/2013 WILMAN PEÑALOZA MD 658.00 OLIGOHYDRAMNIOS UNSPECIFIED TO EPISODE OF CARE 12/01/2013 KETURAH GRAHAM ANGELIA K 658.00 OLIGOHYDRAMNIOS UNSPECIFIED TO EPISODE OF CARE 12/01/2013 REBOLLAR DO ANGELIA K 658.00 OLIGOHYDRAMNIOS UNSPECIFIED TO EPISODE OF CARE 12/01/2013 REBOLLAR DO ANGELIA K 658.00 OLIGOHYDRAMNIOS UNSPECIFIED TO EPISODE OF CARE 12/01/2013 REBOLLAR DO ANGELIA K 658.00 OLIGOHYDRAMNIOS UNSPECIFIED TO EPISODE OF CARE 12/01/2013 REBOLLAR DO ANGELIA K 658.00 OLIGOHYDRAMNIOS UNSPECIFIED TO EPISODE OF CARE 12/01/2013 PINA PROFESSIONAL ORGANIZER, NELLY A 658.00 OLIGOHYDRAMNIOS UNSPECIFIED TO EPISODE OF CARE 12/01/2013 REBOLLAR DO ANGELIA K 658.00 OLIGOHYDRAMNIOS UNSPECIFIED TO EPISODE OF CARE 12/01/2013 PINA PROFESSIONAL ORGANIZER, NELLY A 658.00 OLIGOHYDRAMNIOS UNSPECIFIED TO EPISODE OF CARE 12/01/2013 PINA PROFESSIONAL ORGANIZER, NELLY A 658.00 OLIGOHYDRAMNIOS UNSPECIFIED TO EPISODE OF CARE 12/01/2013 REBOLLAR NAVI GRAHAMA Kortney Ot 658.03 OLIGOHYDRAMNIOS-ANTEPAR 12/20/2013 ANABELA BLACKBURN, WILMAN N V23.9 , HIGH-RISK (UNSPEC) 12/20/2013 REBOLLAR DO, ANGELIA K V23.9 , HIGH-RISK (UNSPEC) 12/20/2013 REBOLLAR DO, ANGELIA K V23.9 , HIGH-RISK (UNSPEC) 12/20/2013 REBOLLAR DO, ANGELIA K V23.9 , HIGH-RISK (UNSPEC) 12/20/2013 REBOLLAR DO, ANGELIA K V23.9 , HIGH-RISK (UNSPEC) 12/20/2013 REBOLLAR DO, ANGELIA K V23.9 , HIGH-RISK (UNSPEC) 12/20/2013 PINA PROFESSIONAL ORGANIZER, NELLY A V23.9 , HIGH-RISK (UNSPEC) 12/20/2013 REBOLLAR DO, ANGELIA K V23.9 , HIGH-RISK (UNSPEC) 12/20/2013 PINA PROFESSIONAL ORGANIZER, NELLY A V23.9 , HIGH-RISK (UNSPEC) 12/20/2013 PINA PROFESSIONAL ORGANIZER, NELLY A V23.9 , HIGH-RISK (UNSPEC) 12/26/2013 REBOLLAR DO ANGELIA K Ot 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 01/03/2014 REBOLLAR , ANGELIA K 796.2 ELEVATED BLOOD PRESSURE READING WITHOUT DIAGNOSIS OF HYPERTENSION 01/03/2014 REBOLLAR , ANGELIA K 796.2 ELEVATED BLOOD PRESSURE READING WITHOUT DIAGNOSIS OF HYPERTENSION 01/03/2014 REBOLLAR , ANGELIA K 796.2 ELEVATED BLOOD PRESSURE READING WITHOUT DIAGNOSIS OF HYPERTENSION 01/03/2014 REBOLLAR , ANGELIA K 796.2 ELEVATED BLOOD PRESSURE READING WITHOUT DIAGNOSIS OF HYPERTENSION 01/03/2014 REBOLLAR DO, ANGELIA K 796.2 ELEVATED BLOOD PRESSURE READING WITHOUT DIAGNOSIS OF HYPERTENSION 01/03/2014 PINA PROFESSIONAL ORGANIZER, NELLY A 796.2 ELEVATED BLOOD PRESSURE READING WITHOUT DIAGNOSIS OF HYPERTENSION 01/03/2014 REBOLLAR DO, ANGELIA K 796.2 ELEVATED BLOOD PRESSURE READING WITHOUT DIAGNOSIS OF HYPERTENSION 01/03/2014 PINA PROFESSIONAL ORGANIZER, NELLY A 796.2 ELEVATED BLOOD PRESSURE READING WITHOUT DIAGNOSIS OF HYPERTENSION 01/03/2014 PINA PROFESSIONAL ORGANIZER, NELLY A 796.2 ELEVATED BLOOD PRESSURE READING WITHOUT DIAGNOSIS OF HYPERTENSION 01/08/2014 KETURAH GRAHAM ANGELIA K Ot 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 01/09/2014 ANGELIA REBOLLAR DO V02.51 GBS - CARRIER OR SUSPECTED CARRIER 01/09/2014 ANGELIA REBOLLAR DO V02.51 GBS - CARRIER OR SUSPECTED CARRIER 01/09/2014 ANGELIA REBOLLAR DO V02.51 GBS - CARRIER OR SUSPECTED CARRIER 01/09/2014 ANGELIA REBOLLAR DO V02.51 GBS - CARRIER OR SUSPECTED CARRIER 01/09/2014 NELLY HELLER APRN A V02.51 GBS - CARRIER OR SUSPECTED CARRIER 01/09/2014 ANGELIA REBOLLAR DO V02.51 GBS - CARRIER OR SUSPECTED CARRIER 01/09/2014 NELLY HELLER APRN A V02.51 GBS - CARRIER OR SUSPECTED CARRIER 01/09/2014 NELLY HELLER APRN A V02.51 GBS - CARRIER OR SUSPECTED CARRIER 01/18/2014 ANGELIA REBOLLAR DO Ot 642.33 TRANS HYPERTEN-ANTEPART 01/25/2014 ANGELIA REBOLLAR DO Ot 644.13 THREAT LABOR NEC-ANTEPAR 01/27/2014 ANGELIA REBOLLAR DO Ot 285.9 ANEMIA NOS 01/27/2014 ANGELIA REBOLLAR DO Ot 648.22 ANEMIA-DELIVERED W P/P 01/27/2014 ANGELIA REBOLLAR DO Ot 648.81 ABN GLUCOSE PEDRO-DELIV 01/27/2014 ANGELIA REBOLLAR DO Ot 648.91 OTH CURR COND-DELIVERED 01/27/2014 ANGELIA REBOLLAR DO Ot 658.01 OLIGOHYDRAMNIOS-DELIVER 01/27/2014 ANGELIA REBOLLAR DO Ot 663.31 CORD ENTANGLE NEC-DELIV 01/27/2014 ANGELIA REBOLLAR DO Ot V27.0 DELIVER-SINGLE LIVEBORN 02/28/2014 WILMAN PEÑALOZA MD Ot 644.03 THRT CAYDEN LABOR-ANTEPART 02/28/2014 WILMAN PEÑALOZA MD Ot 655.73 DECR MOVEMNT ANTEPARTUM CONDITION 03/15/2014 NELLY HELLER APRN V24.2 F/U, ROUTINE 03/15/2014 ANGELIA REBOLLAR DO V24.2 F/U, ROUTINE 03/15/2014 NELLY HELLER APRN A V24.2 F/U, ROUTINE 03/15/2014 PINA LARSEN NELLY A V24.2 F/U, ROUTINE 06/19/2014 ANGELIA REBOLLAR DO V72.40 EXAMINATION OR TEST UNCONFIRMED 06/19/2014 PINA LARSEN NELLY A V72.40 EXAMINATION OR TEST UNCONFIRMED 06/19/2014 PINACedric LARSEN NELLY A V72.40 EXAMINATION OR TEST UNCONFIRMED 07/18/2014 PINA LARSEN NELLY A 646.50 COMPL OF - ASYMPTOMATIC BACTURIA 07/18/2014 PINACedric LARSEN NELLY A V22.1 , NORMAL OTHER 07/18/2014 PINANELLY Steele APRN 646.50 COMPL OF - ASYMPTOMATIC BACTURIA 07/18/2014 PINABRIAN LARSEN NELLY A V22.1 , NORMAL OTHER 08/15/2014 PINA, NELLYNAIN Albert APRN Ot 651.03 08/15/2014 NELLY HELLER APRN Ot V91.09 11/25/2014 NELLY HELLER APRN Ot V22.0 11/25/2014 WILMAN PEÑALOZA MD Ot V22.0 11/25/2014 ANGELIA REBOLLAR DO Ot 642.93 11/25/2014 ANGELIA REBOLLAR DO Ot 658.03 11/25/2014 ANGELIA REBOLLAR DO Ot V23.9 11/25/2014 Ot 644.03 11/25/2014 Ot 655.73 11/25/2014 NELLY HELLER APRN Ot 651.03 11/25/2014 NELLY HELLER APRN Ot V91.09 11/25/2014 JENNIFER POZO DO Ot 623.5 NONINFECT VAG LEUKORRHEA 11/25/2014 JENNIFER POZO DO Ot 651.03 TWIN -ANTEPART 11/25/2014 JENNIFER POZO DO Ot 654.73 ABNORM VAGINA-ANTEPARTUM 11/25/2014 JENNIFER POZO DO Ot V91.09 TWIN GEST, UNABLE TO DETERMINE # OF PLAC 12/09/2014 JENNIFER POZO DO Ot 644.03 THRT CAYDEN LABOR-ANTEPART 12/09/2014 JENNIFER POZO DO Ot 651.03 TWIN -ANTEPART 12/09/2014 FENECH DO, JENNIFER Caraballo Ot 653.73 OTH ABN FET DISPRO-ANTEP 12/09/2014 FENECH DO, JENNIFER Caraballo Ot 657.03 POLYHYDRAMNIOS,ANTEPARTUM CONDITION/COMP 12/09/2014 FENECH DO, JENNIFER Caraballo Ot V91.00 TWIN GEST, UNSPEC # PLACENTA, UNSP # AMN 12/09/2014 FENECH DO, JENNIFER Caraballo Ot 644.03 12/09/2014 FENECH DO, JENNIFER Caraballo Ot 651.03 12/09/2014 FENECH DO, JENNIFER Caraballo Ot 653.73 12/09/2014 FENECH DO, JENNIFER Caraballo Ot 657.03 12/09/2014 FENECH DO, JENNIFER Caraballo Ot V91.00 12/09/2014 SHAKILA BLACKBURN, ELOISE Mirza Ot 644.03 THRT CAYDEN LABOR-ANTEPART 12/20/2014 KHAN YONI GRAHAM Ot 644.03 THRT CAYDEN LABOR-ANTEPART 12/20/2014 KHAN YONI GRAHAM Ot 651.03 TWIN -ANTEPART 12/20/2014 KHAN YONI GRAHAM Ot V91.00 TWIN GEST, UNSPEC # PLACENTA, UNSP # AMN 12/21/2014 KHAN YONI GRAHAM Ot 644.03 THRT CAYDEN LABOR-ANTEPART 12/21/2014 KHAN YONI GRAHAM Ot 651.03 TWIN -ANTEPART 12/21/2014 KHAN YONI GRAHAM Ot 653.73 OTH ABN FET DISPRO-ANTEP 12/21/2014 YONI KHAN DO Ot V91.03 TWIN GEST, DICHORIONIC/DIAMNIOTIC (2 LITZY 01/10/2015 FENECH DO, JENNIFER Caraballo Ot 276.51 DEHYDRATION 01/10/2015 FENECH DO, JENNIFER Rashmi Ot 276.8 HYPOPOTASSEMIA 01/10/2015 FENECH DO, JENNIFER Rashmi Ot 644.03 THRT CAYDEN LABOR-ANTEPART 01/10/2015 FENECH DO, JENNIFER Caraballo Ot 651.03 TWIN -ANTEPART 01/10/2015 FENECH DO, JENNIFER Rashmi Ot 655.83 ABNORM NEC-ANTEPAR 01/10/2015 FENECH DO, JENNIFER Caraballo Ot 787.91 DIARRHEA 01/10/2015 FENECH DO, JENNIFER Rashmi Ot V91.09 TWIN GEST, UNABLE TO DETERMINE # OF PLAC 01/12/2015 BERNADINE BLACKBURN, MARY Gay Ot 655.73 DECR MOVEMNT ANTEPARTUM CONDITION 01/12/2015 BERNADINE BLACKBURN, MARY Gay Ot 786.09 RESPIRATORY ABNORM NEC 01/12/2015 BERNADINE BLACKBURN, MARY Gay Ot 786.59 CHEST PAIN NEC 01/12/2015 FENECH DOJENNIFER Ot 651.03 TWIN -ANTEPART 01/12/2015 IRASEMAECH JENNIFER GRAHAM Ot 655.73 DECR MOVEMNT ANTEPARTUM CONDITION 01/12/2015 IRASEMAECH JENNIFER GRAHAM Ot 655.83 ABNORM NEC-ANTEPAR 01/12/2015 JENNIFER POZO DO Ot V91.09 TWIN GEST, UNABLE TO DETERMINE # OF PLAC 01/19/2015 JENNIFER POZO DO Ot 651.03 01/19/2015 IRASEMAECH JENNIFER GRAHAM Ot 652.23 01/19/2015 FENECH JENNIFER GRAHAM Ot V91.09 01/19/2015 IRASEMAECH JENNIFER GRAHAM Ot 651.03 01/19/2015 FENECH DOJENNIFER Ot 652.23 01/19/2015 FENECH JENNIFER GRAHAM Ot V91.09 01/26/2015 IRASEMAECH JENNIFER GRAHAM Ot 642.31 TRANS HYPERTEN-DELIVERED 01/26/2015 JENNIFER POZO DO Ot 644.21 EARLY ONSET DELIVERY-DEL 01/26/2015 JENNIFER POZO DO Ot 651.01 TWIN -DELIVERED 01/26/2015 JENNIFER POZO DO Ot 652.21 BREECH PRESENTAT-DELIVER 01/26/2015 JENNIFER POZO DO Ot 652.31 TRANSVER/OBLIQ LIE-DELIV 01/26/2015 JENNIFER POZO DO Ot 657.01 POLYHYDRAMNIOS,DEL W OR W/O MENTN ANTEPA 01/26/2015 JENNIFER POZO DO Ot V06.1 JIPCUMPIPV-GINWBRE-UTIUTEUGQ, COMBINED [ 01/26/2015 JENNIFER POZO DO Ot V27.2 DELIVER-TWINS, BOTH LIVE 01/26/2015 JENNIFER POZO DO Ot V91.02 TWIN GEST, MONOCHORIONIC/DIAMNIOTIC-1 PL 02/05/2015 JENNIFER POZO DO Ot 651.03 02/05/2015 FENECH DO, JENNIFER S Ot 652.23 02/05/2015 FENECH DO, JENNIFER S Ot V91.09 06/30/2015 NELLY HELLER APRN Ot V22.0 06/30/2015 ANABELA BLACKBURN, WILMAN Steele Ot V22.0 06/30/2015 REBOLLAR DOANGELIA Ot 642.93 06/30/2015 REBOLLAR ANGELIA GRAHAM Ot 658.03 06/30/2015 ANGELIA REBOLLAR DO Ot V23.9 06/30/2015 Ot 644.03 06/30/2015 Ot 655.73 06/30/2015 NELLY HELLER PROFESSIONAL ORGANIZER Ot 651.03 06/30/2015 NELLY HELLER PROFESSIONAL ORGANIZER Ot V91.09 06/30/2015 FENECH DO, JENNIFER S Ot 651.03 06/30/2015 FENECH DO, JENNIFER S Ot 652.23 06/30/2015 FENECH DO, JENNIFER S Ot V91.09 06/30/2015 NEGRO BLACKBURN, NOE Caraballo Ot F17.210 NICOTINE DEPENDENCE, CIGARETTES, UNCOMPL 06/30/2015 NEGRO BLACKBURN, NOE Caraballo Ot N91.2 AMENORRHEA, UNSPECIFIED 09/06/2015 NELLY HELLER APRN Ot V22.0 09/06/2015 ANABELA BLACKBURN, WILMAN Steele Ot V22.0 09/06/2015 REBOLLAR ANGELIA GRAHAM Ot 642.93 09/06/2015 REBOLLAR ANGELIA GRAHAM Ot 658.03 09/06/2015 ANGELIA REBOLLAR DO Ot V23.9 09/06/2015 Ot 644.03 09/06/2015 Ot 655.73 09/06/2015 NELLY HELLER APRN Ot 651.03 09/06/2015 NELLY HELLER APRN Ot V91.09 09/06/2015 FENECH DO, JENNIFER S Ot 651.03 09/06/2015 FENECH DO, JENNIFER S Ot 652.23 09/06/2015 FENECH DO, JENNIFER S Ot V91.09 09/06/2015 YOUNG MCADAMS DO Ot F17.210 NICOTINE DEPENDENCE, CIGARETTES, UNCOMPL 09/06/2015 YOUNG MCADAMS DO Ot N20.0 CALCULUS OF KIDNEY 09/06/2015 YOUNG MCADAMS DO Ot N39.0 URINARY TRACT INFECTION, SITE NOT SPECIF 10/08/2015 JONATHAN BLACKBURN, TRISTAN Ordoñez Ot F17.210 NICOTINE DEPENDENCE, CIGARETTES, UNCOMPL 10/08/2015 JONATHAN BLACKBURN, TRISTAN Ordoñez Ot R11.2 NAUSEA WITH VOMITING, UNSPECIFIED 03/13/2016 NELLY HELLER PROFESSIONAL ORGANIZER Ot V22.0 SUPERVIS NORMAL 1ST PREG 03/13/2016 ANABELA BLACKBURN, WILMAN Steele Ot V22.0 SUPERVIS NORMAL 1ST PREG 03/13/2016 ANGELIA REBOLLAR DO Ot 642.93 HYPERTENS NOS-ANTEPARTUM 03/13/2016 KETURAH GRAHAM ANGELIA K Ot 658.03 OLIGOHYDRAMNIOS-ANTEPAR 03/13/2016 ANGELIA REBOLLAR DO Ot V23.9 SUPRV HIGH-RISK PREG NOS 03/13/2016 Ot 644.03 THRT CAYDEN LABOR-ANTEPART 03/13/2016 Ot 655.73 DECR MOVEMNT ANTEPARTUM CONDITION 03/13/2016 NELLY HELLER PROFESSIONAL ORGANIZER Ot 651.03 TWIN -ANTEPART 03/13/2016 NELLY HELLER PROFESSIONAL ORGANIZER Ot V91.09 TWIN GEST, UNABLE TO DETERMINE # OF PLAC 03/13/2016 JENNIFER POZO DO Ot 651.03 TWIN -ANTEPART 03/13/2016 JENNIFER POZO DO Ot 652.23 BREECH PRESENT-ANTEPART 03/13/2016 JENNIFER POZO DO Ot V91.09 TWIN GEST, UNABLE TO DETERMINE # OF PLAC 03/18/2016 JENNIFER POZO DO Ot Z36 ENCOUNTER FOR SCREENING OF MOT 03/18/2016 JENNIFER POZO DO Ot Z3A.19 19 WEEKS GESTATION OF 03/19/2016 JENNIFER POZO DO Ot Z36 ENCOUNTER FOR SCREENING OF MOT 03/19/2016 JENNIFER POZO DO Ot Z3A.19 19 WEEKS GESTATION OF 03/31/2016 JENNIFER POZO DO Ot Z36 ENCOUNTER FOR SCREENING OF MOT 03/31/2016 JENNIFER POZO DO Ot Z3A.19 19 WEEKS GESTATION OF 07/16/2016 JENNIFER POZO DO Ot O34.211 MATERN CARE FOR LOW TRANSVERSE SCAR FROM 07/16/2016 JENNIFER POZO DO Ot Z01.818 ENCOUNTER FOR OTHER PREPROCEDURAL EXAMIN 07/16/2016 JENNIFER POZO DO, Ot Z11.2 ENCOUNTER FOR SCREENING FOR OTHER BACTER 07/24/2016 JENNIFER POZO DO, Ot D62 ACUTE POSTHEMORRHAGIC ANEMIA 07/24/2016 JENNIFER POZO DO Ot O34.211 MATERN CARE FOR LOW TRANSVERSE SCAR FROM 07/24/2016 JENNIFER POZO DO, Ot O69.81X0 LABOR AND DEL COMP BY CORD AROUND NECK, 07/24/2016 NOHELIA JENNIFER GRAHAM Ot O90.81 ANEMIA OF THE PUERPERIUM 07/24/2016 IRASEMASUMAN JENNIFER GRAHAM Ot Z23 ENCOUNTER FOR IMMUNIZATION 07/24/2016 JENNIFER POZO DO Ot Z37.0 SINGLE LIVE 07/24/2016 JENNIFER POZO DO, Ot Z3A.39 39 WEEKS GESTATION OF 07/08/2017 JENNIFER POZO DO, Ot Z36.87 ENCOUNTER FOR SCREENING FOR UN 07/08/2017 JENNIFER POZO DO, Ot Z3A.20 20 WEEKS GESTATION OF 07/13/2017 JENNIFER POZO DO Ot Z36.87 ENCOUNTER FOR SCREENING FOR UN 07/13/2017 JENNIFER POZO DO, Ot Z3A.20 20 WEEKS GESTATION OF 07/21/2017 JENNIFER POZO DO, Ot Z36.87 ENCOUNTER FOR SCREENING FOR UN 07/21/2017 JENNIFER POZO DO, Ot Z3A.20 20 WEEKS GESTATION OF 08/05/2017 JENNIFER POZO DO, Ot O26.842 UTERINE SIZE-DATE DISCREPANCY, SECOND TR 08/05/2017 JENNIFER POZO DO, Ot Z3A.20 20 WEEKS GESTATION OF Procedures Code Description [place] [address] URINE TEST (IN- HOUSE) 01/07/2013 53402 URINE TEST (IN- HOUSE) 01/12/2013 46794 URINE TEST (IN- HOUSE) 05/27/2013 78481 ROUTINE VENIPUNCTURE 06/27/2013 08620 ANTIBODY SCREEN (order) 06/27/2013 20231 US OB - EARLY <14 WEEKS 06/27/2013 39067 SYPHILLIS-STATE LAB 06/27/2013 03318 HEP B SURFACE ANTIGEN (STATE ) 06/27/2013 46023 UA LONG DIP 06/27/2013 12181 CBC 06/27/2013 99678 TSH 06/27/2013 71707 HIV ANTIBODIES (RML) 06/28/2013 2472532 ANTIBODY SCREEN (RESULT ONLY) 06/28/2013 24552 BLOOD TYPE/Rh FACTOR 06/28/2013 00769 RUBELLA ANTIBODY, IGG 06/28/2013 05897 CULTURE URINE 06/28/2013 80581 GC/CHLAM PROBE (STATE) 07/25/2013 16410 UA OB DIP 07/25/2013 30022 TRICHOMONAS (IN-HOUSE) 07/25/2013 81602 CULTURE UROGENITAL 07/26/2013 03920 TRICHOMONAS (IN-HOUSE) 08/23/2013 22361 UA OB DIP 08/23/2013 43763 UA OB DIP 09/20/2013 63936 OB - COMPLETE >14 WEEKS 09/20/2013 13156 A1C (IN-HOUSE) 09/20/2013 72499 UA OB DIP 10/18/2013 52548 ROUTINE VENIPUNCTURE 11/15/2013 94017 UA OB DIP 11/15/2013 54211 GLUCOSE MARIAJOSE 1 HOUR 11/15/2013 52035 US OB - FOLLOW UP 11/29/2013 32369 UA OB DIP 11/30/2013 61703 BIOPHYSICAL PROFILE () W/NST 11/30/2013 45153 CMP 11/30/2013 61326 LDH 11/30/2013 32772 URINE PROTEIN 24 HOUR 11/30/2013 69788 URIC ACID 11/30/2013 49483 CBC 11/30/2013 PRO/CRE URINE PROTEIN TO CREATNINE RATIO 11/30/2013 OBSTETRIC EMILIO DILLARD 12/01/2013 01226 UA OB DIP 12/07/2013 63841 US OB - FOLLOW UP 12/07/2013 79613 UA OB DIP 12/20/2013 23583 ROUTINE VENIPUNCTURE 01/03/2014 34951 UA OB DIP 01/03/2014 83977 CBC 01/03/2014 0197868 GFR CALC (RESULT ONLY) 01/03/2014 49428 CMP 01/03/2014 02255 LDH 01/03/2014 PRO/CRE URINE PROTEIN TO CREATNINE RATIO 01/03/2014 81242 CULTURE GROUP B STREP VAG 01/05/2014 41480 UA OB DIP 01/09/2014 98019 UA OB DIP 01/17/2014 39513 NON-STRESS TEST 01/23/2014 26251 UA OB DIP 01/23/2014 73.59 01/25/2014 04455 TEST, URINE (IN- HOUSE) 06/19/2014 60721 ROUTINE VENIPUNCTURE 07/18/2014 68037 US OB - EARLY <14 WEEKS 07/18/2014 99476 SYPHILLIS-STATE LAB 07/18/2014 47196 HIV (STATE LAB) 07/18/2014 35235 ANTIBODY SCREEN (order) 07/18/2014 06337 HEP B SURFACE ANTIGEN (STATE ) 07/18/2014 04570 UA LONG DIP 07/18/2014 98025 CBC 07/18/2014 14876 TSH 07/18/2014 2255167 ANTIBODY SCREEN (RESULT ONLY) 07/19/2014 82395 CULTURE URINE 07/21/2014 Obstetric [facility] 07/31/2014 74.1 01/24/2015 99.77 01/24/2015 [id number] EXTRACTION OF POC, LOW CERVICAL, OPEN AP 07/22/2016 Results Test Result Range Methicillin resistant Staphylococcus aureus (MRSA) screening culture - 13:53 Methicillin resistant Staphylococcus aureus (MRSA) screening culture NEG NRG Complete blood count (CBC) with automated white blood cell (WBC) differential - 07/22/16 06:15 Blood leukocytes automated count (number/volume) 10.0 10*3/uL 4.3-11.0 Blood erythrocytes automated count (number/volume) 3.88 10*6/uL 4.35-5.85 Venous blood hemoglobin measurement (mass/volume) 10.7 g/dL 11.5-16.0 Blood hematocrit (volume fraction) 32 % 35-52 Automated erythrocyte mean corpuscular volume 84 [foz_us] 80-99 Automated erythrocyte mean corpuscular hemoglobin (mass per erythrocyte) 28 pg 25-34 Automated erythrocyte mean corpuscular hemoglobin concentration measurement ( mass/volume) 33 g/dL 32-36 Automated erythrocyte distribution width ratio 13.6 % 10.0-14.5 Automated blood platelet count (count/volume) 247 10*3/uL 130-400 Automated blood platelet mean volume measurement 9.9 [foz_us] 7.4-10.4 Automated blood neutrophils/100 leukocytes 60 % 42-75 Automated blood lymphocytes/100 leukocytes 27 % 12-44 Blood monocytes/100 leukocytes 10 % 0-12 Automated blood eosinophils/100 leukocytes 2 % 0-10 Automated blood basophils/100 leukocytes 0 % 0-10 Blood neutrophils automated count (number/volume) 6.0 10*3 1.8-7.8 Blood lymphocytes automated count (number/volume) 2.7 10*3 1.0-4.0 Blood monocytes automated count (number/volume) 1.0 10*3 0.0-1.0 Automated eosinophil count 0.2 10*3/uL 0.0-0.3 Automated blood basophil count (count/volume) 0.0 10*3/uL 0.0-0.1 Blood type T Indirect antibody screen panel - 07/22/16 06:15 ABO+Rh group AP NRG Transfusion band number [id number] NRG Blood group antibody screen NEGATIVE NRG Complete blood count (CBC) with automated white blood cell (WBC) differential - 07/23/16 05:38 Blood leukocytes automated count (number/volume) 10.4 10*3/uL 4.3-11.0 Blood erythrocytes automated count (number/volume) 3.46 10*6/uL 4.35-5.85 Venous blood hemoglobin measurement (mass/volume) 9.3 g/dL 11.5-16.0 Blood hematocrit (volume fraction) 29 % 35-52 Automated erythrocyte mean corpuscular volume 84 [foz_us] 80-99 Automated erythrocyte mean corpuscular hemoglobin (mass per erythrocyte) 27 pg 25-34 Automated erythrocyte mean corpuscular hemoglobin concentration measurement ( mass/volume) 32 g/dL 32-36 Automated erythrocyte distribution width ratio 13.7 % 10.0-14.5 Automated blood platelet count (count/volume) 193 10*3/uL 130-400 Automated blood platelet mean volume measurement 9.7 [foz_us] 7.4-10.4 Automated blood neutrophils/100 leukocytes 64 % 42-75 Automated blood lymphocytes/100 leukocytes 24 % 12-44 Blood monocytes/100 leukocytes 9 % 0-12 Automated blood eosinophils/100 leukocytes 3 % 0-10 Automated blood basophils/100 leukocytes 0 % 0-10 Blood neutrophils automated count (number/volume) 6.7 10*3 1.8-7.8 Blood lymphocytes automated count (number/volume) 2.5 10*3 1.0-4.0 Blood monocytes automated count (number/volume) 0.9 10*3 0.0-1.0 Automated eosinophil count 0.3 10*3/uL 0.0-0.3 Automated blood basophil count (count/volume) 0.0 10*3/uL 0.0-0.1 Encounters ACCT No. Visit Date/Time Discharge Status Pt. Type Provider Facility Loc./Unit Complaint [id number] 07/18/2014 14:28:00 07/18/2014 23:59:59 CLS Outpatient NELLY HELLER APRN [id number] 07/18/2014 14:28:00 07/18/2014 23:59:59 CLS Outpatient NELLY HELLER APRN [id number] 06/19/2014 10:18:00 06/19/2014 23:59:59 CLS Outpatient ANGELIA REBOLLAR DO [id number] 03/15/2014 16:54:00 03/15/2014 23:59:59 CLS Outpatient NELLY HELLER APRN [id number] 03/02/2014 03:07:00 03/02/2014 23:59:59 CLS Outpatient ANGELIA REBOLLAR DO [id number] 01/23/2014 09:38:00 01/23/2014 23:59:59 CLS Outpatient ANGELIA REBOLLAR DO [id number] 01/23/2014 09:38:00 01/23/2014 23:59:59 CLS Outpatient ANGELIA REBOLLAR DO [id number] 01/09/2014 11:16:00 01/09/2014 23:59:59 CLS Outpatient ANGELIA REBOLLAR DO [id number] 01/03/2014 14:43:00 01/03/2014 23:59:59 CLS Outpatient ANGELIA REBOLLAR DO [id number] 12/07/2013 15:59:00 12/07/2013 23:59:59 CLS Outpatient WILMAN PEÑALOZA MD [id number] 12/07/2013 15:59:00 12/07/2013 23:59:59 CLS Outpatient WILMAN PEÑALOZA MD [id number] 11/30/2013 10:29:00 11/30/2013 23:59:59 CLS Outpatient WILMAN PEÑALOZA MD [id number] 11/15/2013 14:15:00 11/15/2013 23:59:59 CLS Outpatient WILMAN PEÑALOZA MD [id number] 10/18/2013 14:23:00 10/18/2013 23:59:59 CLS Outpatient WILMAN PEÑALOZA MD [id number] 09/20/2013 11:39:00 09/20/2013 23:59:59 CLS Outpatient WILMAN PEÑALOZA MD [id number] 08/23/2013 11:17:00 08/23/2013 23:59:59 CLS Outpatient WILMAN PEÑALOZA MD [id number] 07/25/2013 08:32:00 07/25/2013 23:59:59 CLS Outpatient PINA CHAVA NELLY A [id number] 06/27/2013 10:54:00 06/27/2013 23:59:59 CLS Outpatient NELLY HELLER APRN [id number] 05/27/2013 13:29:00 05/27/2013 23:59:59 CLS Outpatient ANGELIA REBOLLAR DO [id number] 01/12/2013 16:22:00 Document Registration [id number] 01/07/2013 16:08:00 Document Registration [id number] 07/07/2017 10:48:00 07/07/2017 23:59:59 CLS Outpatient FENECH DOJENNIFER S [facility] RAD Z33.1 [id number] 07/22/2016 06:04:00 07/24/2016 13:00:00 DIS Inpatient FENECH DOJENNIFER S [facility] WS PREVIOUS SECTION [id number] 07/15/2016 13:31:00 07/15/2016 14:00:00 DIS Outpatient FENECH DOJENNIFER S [facility] PREOP PREVIOUS SECTION [id number] 03/13/2016 17:08:00 03/13/2016 23:59:59 CLS Outpatient FENECH DOJENNIFER S [facility] RAD [id number] 10/08/2015 03:54:00 10/08/2015 04:43:00 DIS Emergency TRISTAN CASTILLO MD [facility] ER [id number] 09/06/2015 19:15:00 09/06/2015 21:56:00 DIS Emergency YOUNG MCADAMS DO [facility] ER [id number] 06/30/2015 15:47:00 06/30/2015 18:05:00 DIS Emergency NEGRO BLACKBURN, NOE Caraballo [facility] ER [id number] 01/24/2015 22:25:00 01/26/2015 13:12:00 DIS Inpatient JENNIFER POZO DO [facility] LDRP [id number] 01/14/2015 13:11:00 01/14/2015 23:59:59 CLS Outpatient JENNIFER POZO DO [facility] RAD [id number] 01/12/2015 10:05:00 01/12/2015 13:35:00 DIS Outpatient [facility] [id number] 01/12/2015 08:04:00 01/12/2015 09:53:00 DIS Emergency BERNADINE BLACKBURN, MARY Gay [facility] ER [id number] 01/09/2015 10:10:00 01/10/2015 18:30:00 DIS Outpatient [facility]ENNIFER POZO DO [facility] [id number] 12/21/2014 07:54:00 12/21/2014 12:08:00 DIS Outpatient KHAN YONI GRAHAM Lamberto [facility] [id number] 12/20/2014 12:52:00 12/20/2014 15:40:00 DIS Outpatient NGUYEN KHAN DORoosevelt Orantes [facility] [id number] 12/09/2014 18:15:00 12/09/2014 18:36:00 DIS Outpatient ELOISE JHAVERI MD [facility] [id number] 12/08/2014 17:00:00 12/09/2014 05:36:00 DIS Outpatient JENNIFER POZO DO [facility] [id number] 11/25/2014 21:54:00 11/25/2014 23:10:00 DIS Outpatient JENNIFER POZO DO [facility] [id number] 07/28/2014 12:26:00 07/28/2014 23:59:59 CLS Outpatient NELLY HELLER APRN [facility] RAD [id number] 12/01/2013 15:13:00 02/28/2014 00:01:00 DIS Outpatient WILMAN PEÑALOZA MD [facility] RAD [id number] 01/25/2014 17:00:00 01/27/2014 18:15:00 DIS Inpatient REBOLLAR DOANGELIA [facility] LD [id number] 01/25/2014 01:49:00 01/25/2014 03:30:00 DIS Outpatient REBOLLAR DOANGELIA [facility] WSo [id number] 01/17/2014 16:50:00 01/18/2014 19:20:00 DIS Inpatient REBOLLAR DOANGELIA [facility] WS [id number] 01/08/2014 12:33:00 01/08/2014 13:12:00 DIS Outpatient KETURAH [facility]ANGELIA [facility] [id number] 12/29/2013 14:36:00 12/29/2013 23:59:59 CLS Outpatient REBOLLAR DOANGELIA [facility] RAD [id number] 12/26/2013 21:03:00 12/26/2013 22:25:00 DIS Outpatient KETURAH [facility]ANGELIA [facility] [id number] 12/01/2013 22:31:00 12/01/2013 23:56:00 DIS Outpatient KETURAH [facility]ANGELIA [facility] [id number] 11/29/2013 01:35:00 11/29/2013 14:15:00 DIS Inpatient REBOLLAR DOANGELIA [facility] WS [id number] 10/17/2013 14:32:00 10/17/2013 14:52:00 DIS Outpatient REBOLLAR DOANGELIA [facility] [id number] 09/27/2013 13:27:00 09/27/2013 23:59:59 CLS Outpatient WILMAN PEÑALOZA MD [facility] RAD [id number] 09/15/2013 23:25:00 09/16/2013 00:08:00 DIS Emergency VICTORINA HERNANDEZ MD [facility] ER [id number] 07/04/2013 14:00:00 07/04/2013 23:59:59 CLS Outpatient NELLY HELLER APRN [facility] RAD [id number] 04/19/2013 22:54:00 04/20/2013 14:00:00 DIS Outpatient FELIPE KATE DO [facility] [id number] 11/13/2017 07:30:00 PEN Preadmit JENNIFER POZO DO PREVIOUS,[facility] [id number] 03/01/2014 13:00:00 Document Registration
[2017-11-04] MEDS ORDERED: CITRIC ACID/SOB CIT (BICITRA) 30 ML UDC PO ONE (11:00)
[2017-11-04] MEDS ORDERED: CATHETER FLUSH 10 ML SYR IV PRN (11:00)
[2017-11-04] MEDS ORDERED: ceFAZolin 2 GM IV Premixed 50 ML IV ONE (11:00)
[2017-11-04] MEDS ORDERED: FAMOTIDINE 20MG/2ML IV (PEPCID) IV ONE (11:00)
[2017-11-04] MEDS ORDERED: METOCLOPRAMIDE INJ 10 MG/2 ML (REGLAN) IV ONE (11:00)
--- NOTE | 2017-11-04 11:04 | History & Physical-OB ---
OB - Chief Complaint & HPI Date/Time Date of Admission: Date of Admission: Nov 04, 2017 at 10:25 am Time Seen by Provider: 10:30 Chief Complaint/History OB-Reason for Admission/Chief: Section Hx : 4 Hx Para: 4 Expected Date of Delivery: Nov 19, 2017 Gestational Age in Weeks: 37 Gestational Age in Days: 5 Indication for : desires repeat Other reason for admission: Mild PreE, presented to clinic with severe headache, elevated BP of 140s/90s and protienuia. > 3 urine protein to creatinine ratio Admission Nurse Assessment Rev: Yes History of Labs A pos Antibody neg RI RPR NR HBsAg NR HIV NR GC neg GBS neg Allergies and Home Medications Allergies Coded Allergies: No Known Drug Allergies (Unverified , 04/19/13) Home Medications Docusate Sodium 100 Mg Capsule, 100 MG PO BID PRN for CONSTIPATION Prescribed by: JENNIFER POZO on 07/22/16 0821 Hydrocodone Bit/Acetaminophen 1 Each Tablet, 1-2 TAB PO Q4H PRN for PAIN Prescribed by: JENNIFER POZO on 07/22/16 0821 Ibuprofen 600 Mg Tablet, 600 MG PO Q6H Prescribed by: JENNIFER POZO on 07/22/16 0807 Multivitamin 1 Each Tab.chew, 2 EACH PO DAILY, (Reported) Omeprazole 20 Mg Tablet.dr, 20 MG PO DAILY, (Reported) Patient Home Medication List Home Medication List Reviewed: Yes OB - History Hx of Present Care: Yes Ultrasounds: Normal mid trimester US Obstetrical Complications: Pre-eclampsia Medical Complications: None Obstetrical History Hx Termination: No Hx Multiple Gestation: Yes (this ) Hx Stillbirth: No Hx Complication: No Hx Induced Hypertens: No Hx Maternal Gestational Diabet: No Delivery History Hx Dystocia: No Hx Large For Gestational Age I: No Hx Small for Gestational Age I: No Hx Section: No Hx Vaginal Delivery Post C-Sec: No Hx Blood Disorders: No Patient Past Medical History noncontributary Social History/Family History HIV/AIDS: No Sexually Transmitted Disease: No Immunizations Hepatitis A: No Hepatitis B: No Tetanus Booster (TDap): Less than 5yrs Date of Influenza Vaccine: Sep 16, 2013 OB - Admission Exam Physical Exam HEENT: NCAT Heart: Rhythm Normal Lungs: Clear Abdomen: Gravid Extremities: Normal Reflexes: Normal Heart Rate: 130's Accelerations: Accelerations Present OB - Assessment/Plan/Diagnosis Assessment Assessment: section Admission Dx 22 yo @ 37.5 weeks Mild PreE 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
[2017-11-04 11:05] VITALS: BP 124/72
[2017-11-04] MEDS: LACTATED RINGERS 1,000 ML IV PRN ×2 (11:11→12:03)
[2017-11-04] MEDS ORDERED: SERT25TA PO (11:59)
[2017-11-04 12:05] VITALS: BP 101/58
[2017-11-04] MEDS ORDERED: OXYTOCIN/NORMAL SALINE 500 ML IV SCH (12:18)
--- NOTE | 2017-11-04 12:23 | Discharge Inst-Women's Service ---
Discharge Inst-Women's Serv Depart Medication/Instructions New, Converted or Re-Newed RX: RX on Chart Consults/Follow Up Additional Follow Up: Yes Orders/Referrals Dr. Garcia in 7-10 days and in 6 weeks Activity Activity: Activity as Tolerated Driving Instructions: No Driving for 1 Week NO SMOKING: NO SMOKING Nothing Inside Vagina: No Douching, No Norene, No Tampons Diet Discharge Diet: No Restrictions Symptoms to Report to : Bleeding Excessive, Pain Increased, Fever Over 101 Degrees F, Vaginal Bleeding Increase, Questions/Concerns For Any Problems or Questions: Contact Your Physician Skin/Wound Care Infection Signs and Symptoms: Increased Redness, Foul Odor of Wound, Increased Drainage, Skin Itchy or Has a Rash, Increased Swelling, Temperature Above 101 F Operative Area Clean and Dry: Keep Incision Clean/Dry Stitches/Joi/Dermabond: Dermabond, Care of Stitches Bathing Instructions: JENNIFER Scherer DO Nov 04, 2017 12:23 pm
[2017-11-04] MEDS ORDERED: DOCU100C37 PO (12:24)
[2017-11-04] MEDS ORDERED: fentaNYL INJECTION 100 MCG/2 ML AMP ONE (12:24)
[2017-11-04] MEDS ORDERED: ACHD5005 PO (12:24)
[2017-11-04] MEDS ORDERED: IBUP-1773 PO (12:24)
[2017-11-04] MEDS ORDERED: ONDANSETRON 4 MG/2 ML (SDV) Z0FRAN IVP PRN (12:30)
[2017-11-04] MEDS ORDERED: HYDROmorphone (DILAUDID) 2 MG/ML VIAL IVP PRN (12:30)
[2017-11-04] MEDS ORDERED: MEASLES,MUMPS,RUBELLA 1 EA INJ SC SCH (12:30)
[2017-11-04] MEDS ORDERED: TETANUS,DIPTH,PERTUSS P/F (BOOSTRIX) 0.5 ML VIAL IM SCH (12:30)
[2017-11-04] MEDS ORDERED: INFLUENZA TRIvalent 2017-2018 0.5 ML/45 MCG SYR IM ONE (12:45)
[2017-11-04] MEDS ORDERED: OXYTOCIN/NORMAL SALINE 1,000 ML IV ONE (13:03)
[2017-11-04] MEDS ORDERED: PHENYLEPHRINE 100 MCG/ML 10 ML (ANESTHESIA) SYR ONE ×2 (13:03→13:20)
[2017-11-04] MEDS: KETOROLAC 30 MG/ML VIAL IVP SCH ×2 (13:40→19:40)
[2017-11-04] MEDS: CATHETER FLUSH 10 ML SYR IV SCH (13:40)
[2017-11-04 16:45] VITALS: BP 113/70
[2017-11-04] MEDS: HYDROcodone/APAP 5 MG/325 MG (LORTAB) TAB PO PRN (17:42)
[2017-11-04] MEDS: DOCUSATE SODIUM 100 MG (COLACE) CAP PO SCH (19:40)
[2017-11-04 19:45] VITALS: BP 116/68
--- NOTE | 2017-11-04 22:48 | OPERATIVE REPORT ---
DATE OF SERVICE: PREOPERATIVE DIAGNOSES: 1. A 22-year-old G4, P4 at 37 weeks and 5 day gestation. 2. Mild preeclampsia. 3. Severe headache. 4. Family history of gynecologic malignancy. POSTOPERATIVE DIAGNOSES: 1. A 22-year-old G4, P4 at 37 weeks and 5 day gestation. 2. Mild preeclampsia. 3. Severe headache. 4. Family history of gynecologic malignancy. PROCEDURE: Repeat low transverse section with bilateral risk reducing salpingectomy. SURGEON: Casey Garcia DO. TIRE ROOM SUPERVISOR: CJ Rapp. ANESTHESIA: Spinal. ESTIMATED BLOOD LOSS: 500 mL. URINE OUTPUT: 150 mL clear at the end of the procedure. FLUIDS: 2200 mL of lactated Ringer's solution. FINDINGS: Live male infant, weight pending, one minute 6, five minute pending. Grossly normal appearing uterus, bilateral fallopian tubes and ovaries. Dense scarring of the fascia to the rectus muscle. SPECIMEN SENT: Placenta. INDICATION FOR PROCEDURE: This 22-year-old female is a patient that sought her care in my office throughout her care. Her has been uncomplicated to the point of this week where she had an acute elevation of blood pressures. Followup urine to protein creatinine ratio was in the 300s as well as the patient was spilling protein in the office on urine dipstick. Otherwise, she looked okay and blood pressures appeared to be normal and she was told to return to care once I had the urine to protein creatinine ratio, which was the following day. Today, she returned to care and was found to have a severe headache. Due to these mild preeclampsia findings as well as proximity to 39 weeks and the severe headache, I discussed with the patient proceeding with delivery today. Risks of the procedure were discussed with the patient in detail including risks of bleeding, infection, damaging surrounding structures including, but not limited to bowel, bladder, ureter, kidneys, risk to the and postoperative complications and need for reoperation were all discussed with the patient. We also reviewed risk reducing salpingectomy. After everything was discussed and all of her questions were answered, consent was obtained, the patient was taken to the operating room. OPERATIVE IN DETAIL: Once in the operating room, spinal anesthesia was found to be adequate, she was placed in supine position with a leftward tilt, prepped and draped in normal sterile fashion. Anesthesia was tested and timeout was performed. I then made a Pfannenstiel skin incision to the previously existing scar using a knife and carried down to the underlying fascia using Bovie cautery. The fascial incision extended laterally using Bovie cautery. The superior aspect of fascial incision was then grasped with Luiza clamps, tented up and dissected off the underlying rectus muscles. The inferior aspect of the fascial incision was then grasped with Luiza clamps, tented up and dissected off the rectus muscles. The rectus muscles were dissected down the midline using [place] scissors, which exposed the peritoneum, which I entered bluntly and extended using a blunt traction. An Dash ring retractor was placed in the peritoneal incision, which offers excellent lateral sidewall retraction. I then made a low transverse incision into the vesicouterine peritoneum using the knife until membranes were visualized. I attempted to dissect the bladder off of the lower uterine segment; however, the lower uterine segment was extremely thin. I then proceeded with extending the uterine incision using bandage scissors laterally and superiorly. Amniotomy was performed using an Allis clamp and clear fluid was noted. The was found in the vertex presentation. With gentle fundal pressure, 's head was delivered to the incision where anterior and posterior shoulders were delivered. was then brought to the operative field where the cord was doubly clamped and cut and handed off to nurses in attendance. There is a true knot noted in the cord as well. Cord blood was collected for analysis. Three-vessel cord was intact. Placenta was delivered spontaneously thereafter. IV Pitocin is initiated to facilitate uterine contraction. Uterine fundus became firmer with bimanual massage. Uterus was then exteriorized and cleared of all endometrial clots and debris. I then closed the uterine incision using 0 Vicryl suture in a running locked fashion. Second layer of imbricating 0 Monocryl was placed. Excellent hemostasis noted after doing so. I then took my attention to the fallopian tubes where bilaterally I performed the following dissection. Using a LigaSure bipolar cautery and transection device, I started at the isthmic portion of the fallopian tube, cauterizing and transecting using LigaSure down the mesosalpinx to the distal ampullary site, at which point the fallopian tube was amputated and both were sent as a separate specimen, after which, there was no active bleeding noted from the fallopian tube dissection planes. The uterus was placed back within the pelvis and the uterine incision was inspected once more and found to be hemostatic. I copiously irrigated the pelvis using normal saline. There was no active bleeding noted from any pneumo dissection planes. I placed Interceed antiadhesive over my low transverse incision and proceeded with closing the peritoneum using 3-0 Vicryl suture in running fashion. The rectus muscle was reapproximated using 3-0 Vicryl suture in an interrupted fashion. The fascia was reapproximated using 0 Vicryl suture in running fashion. The subcutaneous tissue was reapproximated using 3-0 plain in an interrupted subcutaneous stitch and the skin reapproximated using 4-0 Monocryl in a running subcuticular. Dermabond was applied to the incision and sterile dressings with adhesive white tape. Two grams of Ancef was given preoperatively for infection prophylaxis. The patient tolerated the procedure and brought to the recovery area in stable condition. Job ID: [id number] DocumentID: [id number] Dictated Date: 11/04/2017 15:10:54 Fire Hazard Inspector Date: 11/04/2017 22:47:49 Dictated By: DO LYNN HORN
[2017-11-05 00:57] VITALS: BP 115/72
[2017-11-05] MEDS: KETOROLAC 30 MG/ML VIAL IVP SCH ×2 (00:57→06:20)
[2017-11-05 03:45] VITALS: BP 112/72
[2017-11-05] MEDS: HYDROcodone/APAP 5 MG/325 MG (LORTAB) TAB PO PRN ×2 (03:45→10:09)
[2017-11-05 05:20] LABS: BASOPHILS % (AUTO) 0 % (0-10); EOSINOPHILS # (AUTO) 0.1 10^3/uL (0.0-0.3); EOSINOPHILS % (AUTO) 1 % (0-10); HEMATOCRIT 29 % (35-52); HEMOGLOBIN 9.5 G/DL (11.5-16.0); LYMPHOCYTES # (AUTO) 2.6 X 10^3 (1.0-4.0); LYMPHOCYTES % (AUTO) 23 % (12-44); MEAN CORPUSCULAR HEMOGLOBIN 29 PG (25-34); MEAN CORPUSCULAR HGB CONC 33 G/DL (32-36); MEAN CORPUSCULAR VOLUME 86 FL (80-99); MEAN PLATELET VOLUME 8.4 FL (7.4-10.4); MONOCYTES # (AUTO) 1.3 X 10^3 (0.0-1.0); MONOCYTES % (AUTO) 11 % (0-12); NEUTROPHILS # (AUTO) 7.4 X 10^3 (1.8-7.8); NEUTROPHILS % (AUTO) 65 % (42-75); PLATELET COUNT 231 10^3/uL (130-400); RED BLOOD COUNT 3.31 10^6/uL (4.35-5.85); RED CELL DISTRIBUTION WIDTH 13.2 % (10.0-14.5); WHITE BLOOD COUNT 11.4 10^3/uL (4.3-11.0)
[2017-11-05] MEDS: CATHETER FLUSH 10 ML SYR IV SCH ×2 (06:20→10:09)
[2017-11-05 08:14] VITALS: BP 131/85
[2017-11-05] MEDS: DOCUSATE SODIUM 100 MG (COLACE) CAP PO SCH (08:17)
--- NOTE | 2017-11-05 09:14 | Anesthesia-Regional Post-Op ---
Regional Patient Condition Mental Status: Alert, Oriented x3 Circulation: Same as Pre-Op Headache: Absent Sensation: Full Recovery Motor Block: Absent Post Op Complications Complications None Follow Up Care/Instructions Patient Instructions None needed. Anesthesia/Patient Condition Patient is doing well, no complaints, stable vital signs, no apparent adverse anesthesia problems. No complications reported per nursing. HATTIE DUMONT CRNA Nov 05, 2017 09:14
[2017-11-05 12:12] VITALS: BP 129/78
[2017-11-05] MEDS ORDERED: IBUPROFEN 600 MG (MOTRIN) TAB PO SCH (12:30)
--- NOTE | 2017-11-05 13:19 | Postpartum Progress Note ---
Note Note Day #1 Subjective: Patient is without complaints. Ambulating, voiding. Tolerating a regular diet without nausea or vomiting. Normal lochia. Pain is well controlled with oral pain medications. Objective: Vital Sign - Last 24 Hours 11/04/17 11/04/17 11/05/17 11/05/17 16:45 19:45 00:57 03:45 Temp 98.2 97.6 97.5 96.8 Pulse 77 99 76 70 Resp 18 18 18 B/P (MAP) 113/70 (84) 116/68 (84) 115/72 (86) 112/72 (85) Pulse Ox 97 98 98 99 O2 Delivery Room Air Room Air Room Air Room Air 11/05/17 11/05/17 08:14 12:12 Temp 98.1 97.9 Pulse 85 79 Resp 20 20 B/P (MAP) 131/85 (100) 129/78 (95) Pulse Ox 97 99 O2 Delivery Room Air Room Air Intake and Output 11/04/17 11/04/17 11/05/17 15:00 23:00 07:00 Intake Total 50 ml 740 ml 600 ml Output Total 650 ml 0 ml 500 ml Balance -600 ml 740 ml 100 ml Laboratory Tests Test 11/05/17 05:15 Range/Units White Blood Count 11.4 H 4.3-11.0 10^3/uL Red Blood Count 3.31 L 4.35-5.85 10^6/uL Hemoglobin 9.5 L 11.5-16.0 G/DL Hematocrit 29 L 35-52 % Mean Corpuscular Volume 86 80-99 FL Mean Corpuscular Hemoglobin 29 25-34 PG Mean Corpuscular Hemoglobin Concent 33 32-36 G/DL Red Cell Distribution Width 13.2 10.0-14.5 % Platelet Count 231 130-400 10^3/uL Mean Platelet Volume 8.4 7.4-10.4 FL Neutrophils (%) (Auto) 65 42-75 % Lymphocytes (%) (Auto) 23 12-44 % Monocytes (%) (Auto) 11 0-12 % Eosinophils (%) (Auto) 1 0-10 % Basophils (%) (Auto) 0 0-10 % Neutrophils # (Auto) 7.4 1.8-7.8 X 10^3 Lymphocytes # (Auto) 2.6 1.0-4.0 X 10^3 Monocytes # (Auto) 1.3 H 0.0-1.0 X 10^3 Eosinophils # (Auto) 0.1 0.0-0.3 10^3/uL Basophils # (Auto) 0.0 0.0-0.1 10^3/uL Physical Exam: General - Alert and oriented, no apparent distress Abdomen - Soft, appropriately tender to palpation, non-distended, fundus firm at umbilicus Extremities - no edema, negative Elissa's bilaterally Incision- c/d/i Assessment: POD 1 RLTCS w/ RRS Acute blood loss anemia Plan: Routine care. Encourage breast feeding. Encourage ambulation. Ferrous sulfate supplementation. Plan for discharge today, due to infant transfer to [facility] PO/PP precautions reviewed. Vitals - Labs Vital Signs - I&O Vital Signs Date Time Temp Pulse Resp B/P (MAP) Pulse Ox O2 Delivery O2 Flow Rate FiO2 11/05/17 12:12 97.9 79 20 129/78 (95) 99 Room Air 11/05/17 08:14 98.1 85 20 131/85 (100) 97 Room Air 11/05/17 03:45 96.8 70 18 112/72 (85) 99 Room Air 11/05/17 00:57 97.5 76 18 115/72 (86) 98 Room Air 11/04/17 19:45 97.6 99 18 116/68 (84) 98 Room Air 11/04/17 16:45 98.2 77 18 113/70 (84) 97 Room Air I & O 11/05/17 07:00 Intake Total 1390 ml Output Total 1150 ml Balance 240 ml Labs Laboratory Tests 11/05/17 05:15: White Blood Count 11.4H, Red Blood Count 3.31L, Hemoglobin 9.5L, Hematocrit 29L , Mean Corpuscular Volume 86, Mean Corpuscular Hemoglobin 29, Mean Corpuscular Hemoglobin Concent 33, Red Cell Distribution Width 13.2, Platelet Count 231, Mean Platelet Volume 8.4, Neutrophils (%) (Auto) 65, Lymphocytes (%) (Auto) 23, Monocytes (%) (Auto) 11, Eosinophils (%) (Auto) 1, Basophils (%) (Auto) 0, Neutrophils # (Auto) 7.4, Lymphocytes # (Auto) 2.6, Monocytes # (Auto) 1.3H, Eosinophils # (Auto) 0.1, Basophils # (Auto) 0.0 JENNIFER POZO DO Nov 05, 2017 1:19 pm
--- NOTE | 2017-11-06 09:20 | Physician Query Clarification ---
PQ-Further Specificity Admission/Discharge Admission Date: Nov 04, 2017 at 10:25 Discharge Date: Nov 05, 2017 at 12:25 The medical record reflects the following clinical scenario: History/Risk Factors: Family history gynecologic malignancy Clinical Findings: 22 yrs old 4 para 4 Treatment: bilateral salpingectomy Question: Can you further specify the type of gynecologic malignancy (family hx of) per the clinical indicators above? Please document below. 1. immediate family history of ovarian cancer 2. family hx of gynecologic malignancy type unknown 3. Other, with explanation of the clinical findings. 4. Clinically undetermined, no explanation for the clinical findings. PHYSICIAN RESPONSE Can you specify per above: Other, explanation/clinical finding Explanation/Clinical Findings Family hx of gynecologic malignancy type unknown In responding to this query, please exercise your independent professional judgment. The purpose of this communication is to more accurately reflect the complexity of your patients condition. The fact that a question is asked does not imply that any particular answer is desired or expected. Thank you for your timely response to this clarification. Requestors name: Paulina THIS PHYSICIAN QUERY FORM IS A PERMANENT PART OF THE MEDICAL RECORD PAULINA RENTERIA Nov 06, 2017 09:20 JENNIFER POZO DO Nov 09, 2017 21:21
== END 2017-11-05 12:25 | disposition home or self-care (01) | DRG 765 ==
LOC: LDRP 10:25
PROVIDERS: ADMIT Obstetrics & Gynecology; ATTEND Obstetrics & Gynecology
PROC: 0UT70ZZ Resection of Bilateral Fallopian Tubes, Open Approach (ICD-10-PCS; 2017-11-04)
PROC: 10D00Z1 Extraction of Products of Conception, Low, Open Approach (ICD-10-PCS; principal; 2017-11-04 12:30)
DX: O14.04 Mild to moderate pre-eclampsia, complicating childbirth (principal); O34.211 Maternal care for low transverse scar from previous cesarean delivery; O69.2XX0 Labor and delivery complicated by other cord entanglement, with compression, not applicable or unspecified; O90.81 Anemia of the puerperium; D62 Acute posthemorrhagic anemia; Z80.49 Family history of malignant neoplasm of other genital organs; Z37.0 Single live birth; Z3A.37 37 weeks gestation of pregnancy
CPT/HCPCS: 36415; 85025; 86850; 86900; 86901; 94664

== ENCOUNTER 2019-11-24 00:32 | Emergency (ER) | payer MEDICAID ==
[~2019-11-24] VITALS: Ht 160 cm; Wt 84.9 kg
[~2019-11-24 00:32] MED LIST changes: +METR-143 PO; -METR250T32 PO; +SERT25TA PO
[2019-11-24 00:40] VITALS: BP 145/92
--- OUTSIDE RECORDS SUMMARY | 2019-11-24 00:44 | XMS REPORT | Clinical Summary ---
Author Author [facility] Organization [facility] Address Unknown Phone Unavailable Care Team Providers Care [employer] Bi Administrator Name Role Phone No Pcp, Na PCP Unavailable Source Comments Some departments are not documenting in the electronic medical record. If you d o not see the information that you expected, contact Release of Information in [facility] Health Information Management department at [phone] for further assistan ce in locating additional records.[facility] Allergies Not on File Medications Not on file Active Problems Not on file Social History Date Tobacco Use Types Packs/Day Years Used Never Assessed Sex Assigned at Date Recorded Not on file Industry Job Start Date Occupation Not on file Not on file Not on file Travel End Travel History Travel Start No recent travel history available. Last Filed Vital Signs Not on file Plan of Treatment Health Maintenance Due Date Last Done Comments DTAP/TDAP VACCINES (1 - 2004 Tdap) HPV VACCINES (1 - Female 2004 2-dose series) HIV SCREENING 2008 PHYSICAL (COMPREHENSIVE) 2011 EXAM CERVICAL CANCER SCREENING 2014 INFLUENZA VACCINE 03/24/2019 Results Not on filefrom Last 3 Months Insurance Type Payer Benefit Subscriber ID Effective Phone Address Plan / Dates Group [facility] [place] x[place]xx 2010- STATE Present HEALTH Advance Directives Patient Car Dispatcher Explanation Type Date Recorded Advance Directive/DPOA
--- OUTSIDE RECORDS SUMMARY | 2019-11-24 00:45 | XMS REPORT ---
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 Name Role Phone WILMAN PEÑALOZA Unavailable PROBLEMS Type Condition ICD9-CM Code YCQ61-CT Code Onset Dates Condition S tatus SNOMED Code Problem Elevated blood pressure reading without diagnosi s of hypertension 796.2 Active 305792189 Problem Irregular menstrual cycle N92.6 Acti ve 78125498 Problem Lower abdominal pain R10.30 Active 75738417 Problem Chronic gingivitis, plaque induced K05.10 Active 58790009 Problem Positive serology for syphilis A53.0 Active 011292505 Problem Constipation, unspecified constipation type K59.00 Active 42585604 Problem Fatigue, unspecified type R53.83 Acti ve 45379147 Problem Anxiety F41.9 Active 69462290 Problem Tobacco abuse Z72.0 Active 541202 05 ALLERGIES No Information ENCOUNTERS Encounter Location Date Diagnosis [facility] [address] [facility] [id number] [address] [place] [address] Jul, Pharyngitis J02.9 [facility] [id number] [place] [address] May, Positive serology for syphilis A53.0 [facility] [id number] [place] [address] May, [facility] [id number] [place] [address] Apr, [place] [address] [address] Apr, Concern about STD in female without diag nosis Z71.1 ; Needlestick injury due to hypodermic needle W46.0XXA ; Candidal vaginitis B37.3 and Trichomonas vaginitis A59.01 [facility] [address] [facility] [id number] [address] [place] [address] December, UTI symptoms R39.9 and Acute cystitis with hematuria N30.[address] [id number] Feb, Acute cystitis without hematuria N30.[address] [id number] Oct, [facility] [address] [facility] [place] [id number] Oct, Dental examination Z01.20 [facility] [id number] [place] [address] Oct, Dental examination Z01.20 and Chronic gi ngivitis, plaque induced K05.10 [facility] [id number] [place] [address] Oct, Dental examination Z01.[address] [id number] Jun, [address] [id number] May, [address] [id number] May, [address] [id number] Apr, [address] [id number] Apr, [address] [id number] Feb, Encounter for test, result unknown Z32.[address] [id number] Feb, [address] [id number] Feb, [address] [id number] Feb, Encounter for test, result unknown Z32.00 [address] [place] [address] Jan, [facility] [place] [address] [id number] [place] [address] Jan, [facility] [place] [address] [id number] [place] [address] Jan, [facility] [place] [address] [id number] [place] [address] December, [facility] [place] [address] [id number] [place] [id number] December, [facility] [place] [address] [id number] [place] 7836[address] Nov, [facility] [place] [address] [id number] [place] 7997[address] Nov, [facility] [place] [address] [id number] [place] 622875600 Nov, [facility] [place] [address] [id number] [place] [id number] Oct, [facility] [place] [address] [id number] [place] [id number] Oct, [facility] [place] [address] [id number] [place] [address] Oct, [facility] [place] [address] [id number] [place] [id number] Oct, [facility] [place] [address] [id number] [place] 9[address] Sep, [facility] [place] [address] [id number] [place] 276884544 Sep, [facility] [place] [address] [id number] [place] [id number] Sep, [facility] [place] [address] [id number] [place] 920164610 Sep, [facility] [place] [address] [id number] [place] [id number] Sep, [facility] [place] [address] [id number] [place] 929700587 Aug, [facility] [place] [address] [id number] [place] [id number] Jul, [facility] [place] [address] [id number] [id number] Jul, [facility] [place] [address] [address] Jun, [facility] [place] [address], [place] [id number] Jun, [facility] [place] [address], [place] [id number] Jun, [facility] [place] [address], [place] 565178086 Jun, [facility] [place] [address], [place] 172783188 Jun, [facility] [place] [address], [place] [id number] Jun, [facility] [place] [address], [place] [id number] May, [facility] [place] [address], [place] 9795[address] May, [facility] [place] [address], [place] [id number] May, [facility] [address] [id number] [place] [address] Apr, Bronchitis J40 [facility] [place] [address] [id number] Mar, [facility] [place] [address] [id number] Feb, [facility] [place] [address] [id number] Feb, [facility] [place] [address] [id number] Feb, Sore throat J02.9 and Ear pain, right H92.01 [facility] [place] [address] [id number] Jan, [facility] [place] [address] [id number] Jan, Viral syndrome B34.9 ; Other seasonal allergic rhinitis J30.2 and Post-nasal drip R09.82 [facility] [place] [address] [id number] Jan, [place] [id number] [place] [id number] Nov, [address] [id number] Oct, test positive Z32.01 [place] [address] [address] Oct, [place] [address] [address] Oct, [place] [address] [address] Sep, Kidney stones N20.0 [place] [address] [address] 18 Sep, 2015 [place] [address] [address] Sep, Pelvic pain R10.2 ; Left lower quadrant pain R10.32 ; Vaginal discharge N89.8 ; Routine screening for STI (sexually transmitted infection) Z11.3 ; Unprotected sexual intercourse Z72.51 ; Kidney stone N20.0 ; History of dyspareunia in female Z87.42 and Screening for malignant neoplasm of cervix Z12.4 [place] [address] [address] 12 Jun, 2015 Constipation, unspecified constipation t ype K59.00 ; Lower abdominal pain R10.30 ; Irregular menstrual cycle N92.6 ; Anxiety F41.9 ; Fatigue, unspecified type R53.83 and Tobacco abuse Z72.[address] [id number] Jun, [address] [id number] Jun, Nausea R11.[address] [id number] May, Alopecia L65.[address] [id number] May, [facility] [place] [address] [id number] [place] [address] Apr, [facility] [place] [address] [id number] [address] Mar, [facility] [place] [id number] [place] [address], [place] [address]3335 Mar, [facility] [place] [address] [id number] [address] Mar, [facility] [address] [id number] [place] [address] Mar, test negative V72.41 [facility] [place] [id number] [place] [address], [place] [id number] Mar, [facility] [place] [id number] [place] [address], [place] 737523144 Mar, [facility] [place] [id number] [place] [address], [place] 428172812 Feb, [facility] [place] [id number] [place] [address], [place] [id number] Feb, [facility] [place] [id number] [place] [address], [place] [id number] Feb, [facility] [place] [id number] [place] [address], [place] [id number] Feb, [facility] [place] [id number] [place] [address], [place] [id number] Feb, [facility] [place] [id number] [place] [address], [place] [id number] Feb, [facility] [place] [address], [place] [address] Feb, [facility] [place] [id number] [place] [address], [place] [id number] Feb, [facility] [place] [id number] [place] [address], [place] [id number] Feb, [facility] [place] [id number] [place] [address], [place] 498354734 Feb, [facility] [place] [id number] [place] [address], [place] [id number] Feb, [facility] [place] [id number] [place] [address], [place] 550886800 Feb, [facility] [place] [address] [id number] [facility] 668999517 Jan, [facility] [place] [address] [id number] [place] 210472899 Jan, [facility] [place] [address] [place] [id number] [facility] [address]7040994 Jan, [facility] [address] [facility] [facility] [address] [id number] [facility] 9238[address] Jan, Dental examination V72.2 [facility] [place] [address] [id number] [place] [address], [place] 852289855 Jan, [facility] [place] [address] [id number] [place] [address], [place] [id number] Jan, [facility] [place] [address] [id number] COUNTY [facility] [id number] Jan, [facility] [place] [address] [id number] [place] [address], [place] [id number] Jan, [facility] [place] [address], [place] 700031112 Jan, [facility] [place] [address] [id number] [place] [address], [place] [id number] 15 Jan, 2015 [facility] [place] [address] [id number] [place] [address], [place] [id number] 14 Jan, 2015 [facility] [place] [address] [place] [id number] [place] [address], [place] [id number] Jan, [facility] [place] [address] [id number] [place] [address], [place] 578994816 Jan, [facility] [place] [address] [id number] [place] [address], [place] [id number] Jan, [facility] [place] [address] [id number] [place] [address], [place] [id number] Jan, [facility] [place] [address] [id number] [place] [address], [place] [id number] Jan, [facility] [place] [address] [id number] [place] [address], [place] [id number] Jan, [facility] [place] [address] [id number] [place] [address], [place] [id number] Jan, [facility] [place] [address], [place] 707419531 Jan, 2014 [facility] [place] [address] [id number] [place] 639298806 Jan, [facility] [place] [address] [id number] [place] 238910052 Jan, 2014 [facility] [place] [address] [id number] [place] 722997974 Jan, 2014 [facility] [place] [address] [id number] [place] 068435111 Jan, 2014 [facility] [place] [address] [id number] [place] 734324505 Jan, 2014 [facility] [place] [address] [id number] [place] 936539472 Jan, [facility] [place] [address] [id number] [place] 014425101 Jan, [facility] [place] [address] [id number] [place] 010588059 Jan, [facility] [place] [address] [id number] [place] 587952844 Jan, [facility] [place] [address] [id number] [place] 186036556 December, [facility] [place] [address] [id number] [place] 167840074 December, [facility] [place] [address] [id number] [place] 724758285 December, [facility] [place] [address] [id number] [place] 033603215 December, [facility] [place] [address] [id number] [place] 851533813 December, [facility] [place] [address] [id number] [place] 667074123 December, [facility] [place] [address] [id number] [place] 144889519 December, [facility] [place] [address] [id number] [place] 098742497 December, [facility] [place] [address] [id number] [place] 882714829 December, [facility] [place] [address] [id number] [place] [id number] December, [facility] [place] [address] [id number] [place] 3623938[address] December, [facility] [place] [address] [id number] [place] [id number] December, [facility] [place] [address] [id number] [place] 442658850 December, [facility] [place] [address] [facility] [place] 444238370 December, [facility] [place] [address] [id number] [facility] [id number] Nov, [facility] [place] [address] [id number] [facility] 517589548 Nov, [facility] [place] [address] [facility]757[facility] [place] 169173171 Nov, [facility] [place] [address] [facility]757[facility] [place] [id number] Nov, [facility] [id number] [place] [address] Nov, [facility] [id number] [place] [address] Nov, [facility] [address] [address] Sep, [facility] [id number] [place] [address] Sep, [facility] [id number] [place] [address] Jul, [facility] [id number] [place] [address] Jul, [facility] [address] [address] Jul, [facility] [id number] [place] [address] Jul, [facility] [id number] [place] [address] Jul, [facility] [id number] [place] [address] Jul, [facility] [address] [facility] [id number] [place] [address] Jun, [facility] [address] [id number] [place] [address] Jun, [facility] [address] [id number] [place] [address] Jun, [facility] [address] [id number] [place] [address] Jun, [facility] [address] [id number] [place] [address] May, [facility] [address] [id number] [place] [address] May, [facility] [address] [id number] [place] [address] Feb, [facility] [address] [id number] [place] [address] Feb, [facility] [address] [id number] [place] [address] Feb, [facility] [address] [id number] [place] [address] Feb, [facility] [address] [id number] [place] [address] Jan, [facility] [address] [id number] [place] [address] Jan, [facility] [address] [id number] [place] [address] Jan, [facility] [address] [id number] [place] [address] Jan, [facility] [address] [id number] [place] [address] December, [facility] [address] [id number] [place] [address] December, [facility] [address] [id number] [place] [address] December, [facility] [address] [id number] [place] [address] December, [facility] [address] [facility] [id number] [place] [address] December, [facility] [address] [id number] [place] [address] December, [facility] [address] [id number] [place] [address] December, [facility] [address] [id number] [place] [address] December, [facility] [address] [id number] [place] [address] December, [facility] [address] [id number] [place] [address] December, [facility] [address] [id number] [place] [address] December, [facility] [address] [id number] [place] [address] December, [facility] [address] [id number] [place] [address] December, [facility] [address] [id number] [place] [address] December, [facility] [address] [id number] [place] [address] December, [facility] [address] [facility] [id number] [place] [address] December, [facility] [address] [id number] [place] [address] December, [facility] [address] [id number] [place] [address] Nov, [facility] [address] [id number] [place] [address] Nov, [facility] [address] [id number] [place] [address] Nov, [facility] [address] [id number] [place] [address] Nov, [facility] [address] [id number] [place] [address] Nov, [facility] [address] [id number] [place] [address] Nov, [facility] [address] [id number] [place] [address] Nov, [facility] [address] [id number] [place] [address] Nov, [facility] [address] [id number] [place] [address] Nov, [facility] [address] [id number] [place] [address] Nov, [facility] [address] [id number] [place] [address] Nov, [facility] [address] [id number] [place] [address] Nov, [facility] [address] [id number] [place] [address] Nov, [facility] [address] [id number] [place] [address] Nov, [facility] [address] [id number] [place] [address] Nov, [facility] [address] [id number] [place] [address] Nov, [facility] [address] [id number] [place] [address] Oct, [facility] [address] [id number] [place] [address] Oct, [facility] [address] [id number] [place] [address] Oct, [facility] [address] [id number] [place] [address] Oct, [facility] [address] [id number] [place] [address] Oct, [facility] [address] [id number] [place] [address] Oct, [facility] [address] [id number] [place] [address] Oct, [facility] [address] [id number] [place] [address] Oct, [facility] [address] [id number] [place] [address] Sep, [facility] [address] [id number] [place] [address] Sep, [facility] [address] [id number] [place] [address] Sep, [facility] [address] [id number] [place] [address] Sep, [facility] [address] [id number] [place] [address] Sep, [facility] [address] [id number] [place] [address] Sep, [facility] [address] [id number] [place] [address] Sep, [facility] [address] [id number] [place] [address] Sep, [facility] [address] [id number] [place] [address] Sep, [facility] [address] [id number] [place] [address] Sep, [facility] [address] [id number] [place] [address] Aug, [facility] [address] [id number] [place] [address] Aug, [facility] [address] [id number] [place] [address] Jul, [facility] [address] [id number] [place] [address] Jul, [facility] [address] [id number] [place] [address] Jul, [facility] [address] [id number] [place] [address] Jul, [facility] [address] [id number] [place] [address] Jul, [facility] [address] [id number] [place] [address] Jul, [facility] [id number] [place] [address] Jun, [facility] [address] [id number] [place] [address] Jun, [facility] [address] [id number] [place] [address] Jun, [facility] [address] [id number] [place] [address] May, [facility] [address] [id number] [place] [address] December, [facility] [address] [id number] [place] [address] December, [facility] [address] [id number] [place] [address] Jan, [facility] [address] [id number] [place] [address] Jan, [facility] [address] [id number] [place] [address] Jan, [facility] [address] [id number] [place] [address] Jan, [facility] [address] [id number] [place] [address] December, [facility] [address] [facility] [id number] [place] [id number] December, [facility] [address] [id number] [place] [address] December, [facility] [id number] [place] [address] December, [facility] [address] [id number] [place] [address] December, [facility] [id number] [place] [address] Oct, [facility] [address] [id number] [place] [address] Jul, [facility] [address] [id number] [place] [address] Jul, [facility] [address] [id number] [place] [address] Jun, IMMUNIZATIONS No Known Immunizations SOCIAL HISTORY Never Assessed REASON FOR VISIT PLAN OF CARE VITAL SIGNS MEDICATIONS No Known Medications RESULTS No Results PROCEDURES No Known procedures INSTRUCTIONS MEDICATIONS ADMINISTERED No Known Medications MEDICAL (GENERAL) HISTORY Type Description Date Medical History anxiety Medical History Supervision of normal first Medical History Unspecified chlamydial infec tion, in conditions classified elsewhere and of unspecified site Medical History Decreased movements, a ffecting management of mother, antepartum condition or complication Medical History Threatened premature labor, unspecified as to episode of care Medical History Unspecified hypertension com plicating , childbirth, or the puerperium, unspecified as to episode of care Medical History Unspecified high-risk Medical History DTAP TEST Surgical History section 01/2015 Surgical History appendectomy 03/2013 Surgical History wisdom teeth extraction Surgical History 06/2016 Surgical History 10/2017 Surgical History tubal ligation or removal of tubes 11/08 Hospitalization History surgeries, childbirth
--- OUTSIDE RECORDS SUMMARY | 2019-11-24 00:45 | XMS REPORT ---
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 Name Role Phone WILMAN PEÑALOZA Unavailable PROBLEMS Type Condition ICD9-CM Code TWS64-GI Code Onset Dates Condition S tatus SNOMED Code Problem Elevated blood pressure reading without diagnosi s of hypertension 796.2 Active 658214815 Problem Irregular menstrual cycle N92.6 Acti ve 49239900 Problem Lower abdominal pain R10.30 Active 71907649 Problem Chronic gingivitis, plaque induced K05.10 Active 18673934 Problem Positive serology for syphilis A53.0 Active 531774494 Problem Constipation, unspecified constipation type K59.00 Active 72189075 Problem Fatigue, unspecified type R53.83 Acti ve 96938277 Problem Anxiety F41.9 Active 26791986 Problem Tobacco abuse Z72.0 Active 915132 05 ALLERGIES No Information ENCOUNTERS Encounter Location Date Diagnosis [facility] [address] [facility] [id number] [address] [place] [address] Jul, Pharyngitis J02.9 [facility] [id number] [place] [address] May, Positive serology for syphilis A53.0 [facility] [id number] [place] [address] May, [facility] [id number] [place] [address] Apr, [place] [address] [address] Apr, Concern about STD in female without diag nosis Z71.1 ; Needlestick injury due to hypodermic needle W46.0XXA ; Candidal vaginitis B37.3 and Trichomonas vaginitis A59.01 [facility] [address] [facility] [place] [id number] [address] [place] [address] December, UTI symptoms R39.9 and Acute cystitis with hematuria N30.[address] [id number] Feb, Acute cystitis without hematuria N30.[address] [id number] Oct, [facility] [address] [facility] [place] [id number] Oct, Dental examination Z01.20 [facility] [id number] [place] [address] Oct, Dental examination Z01.20 and Chronic gi ngivitis, plaque induced K05.10 [facility] [id number] [place] [address] Oct, Dental examination Z01.[address] [id number] Jun, [address] [id number] May, [address] [id number] May, [address] [id number] Apr, [address] [id number] Apr, [address] [id number] Feb, Encounter for test, result unknown Z32.[address] [id number] Feb, [address] [id number] Feb, [address] [id number] Feb, Encounter for test, result unknown Z32.00 [address] [place] [id number] Jan, [facility] [place] [address] [id number] [place] [id number] Jan, [facility] [place] [address] [id number] [place] [address] Jan, [facility] [place] [address] [id number] [place] [id number] December, [facility] [place] [address] [id number] [place] [id number] December, [facility] [place] [address] [id number] [place] [id number] Nov, [facility] [place] [address] [id number] [place] [id number] Nov, [facility] [place] [address] [id number] [place] [id number] Nov, [facility] [place] [address] [id number] [place] [id number] Oct, [facility] [place] [address] [id number] [place] [id number] Oct, [facility] [place] [address] [id number] [place] [id number] Oct, [facility] [place] [address] [id number] [place] [id number] Oct, [facility] [place] [address] [id number] [place] [id number] Sep, [facility] [place] [address] [id number] [place] [id number] Sep, [facility] [place] [address] [id number] [place] [id number] Sep, [facility] [place] [address] [id number] [place] [id number] Sep, [facility] [place] [address] [id number] [place] [id number] Sep, [facility] [place] [address] [id number] [place] [id number] Aug, [facility] [place] [address] [id number] [place] [id number] Jul, [facility] [place] [address] [id number] [id number] Jul, [facility] [address] [id number] Jun, [facility] [place] [address], [place] [id number] Jun, [facility] [place] [address], [place] [id number] Jun, [facility] [place] [address], [place] [id number] Jun, [facility] [place] [address], [place] [id number] Jun, [facility] [place] [address], [place] [id number] Jun, [facility] [place] [address], [place] [id number] May, [facility] [place] [address], [place] [id number] May, [facility] [place] [address], [place] [id number] May, [facility] [address] [facility] [place] [address] Apr, Bronchitis J40 [facility] [place] [address] [id number] Mar, [facility] [place] [address] [id number] Feb, [facility] [place] [address] [id number] Feb, [facility] [place] [address] [id number] Feb, Sore throat J02.9 and Ear pain, right H92.01 [facility] [place] [address] [id number] Jan, [facility] [place] [address] [id number] Jan, Viral syndrome B34.9 ; Other seasonal allergic rhinitis J30.2 and Post-nasal drip R09.82 [facility] [place] [address] [id number] Jan, [place] [id number] [place] [address] [id number] Nov, [address] [id number] Oct, test positive Z32.01 [place] [address] [address] Oct, [place] [address] [address] Oct, [place] [address] [address] Sep, Kidney stones N20.0 [place] [address] [address] 18 Sep, 2015 [place] [address] [address] Sep, Pelvic pain R10.2 ; Left lower quadrant pain R10.32 ; Vaginal discharge N89.8 ; Routine screening for STI (sexually transmitted infection) Z11.3 ; Unprotected sexual intercourse Z72.51 ; Kidney stone N20.0 ; History of dyspareunia in female Z87.42 and Screening for malignant neoplasm of cervix Z12.4 [place] [address] [address] 12 Jun, 2015 Constipation, unspecified constipation t ype K59.00 ; Lower abdominal pain R10.30 ; Irregular menstrual cycle N92.6 ; Anxiety F41.9 ; Fatigue, unspecified type R53.83 and Tobacco abuse Z72.[address] [id number] Jun, [address] [id number] Jun, Nausea R11.[address] [id number] May, Alopecia L65.[address] [id number] May, [facility] [place] [address] [id number] [id number] Apr, [facility] [place] [address] [id number] [id number] Mar, [facility] [place] [id number] [place] [address], [place] [id number] Mar, [facility] [place] [address] [id number] [id number] Mar, [facility] [address] [facility] [place] [address] Mar, test negative V72.41 [facility] [place] [id number] [place] [address], [place] [id number] Mar, [facility] [place] [id number] [place] [address], [place] [id number] Mar, [facility] [place] [id number] [place] [address], [place] [id number] Feb, [facility] [place] [id number] [place] [address], [place] [id number] Feb, [facility] [place] [id number] [place] [address], [place] [id number] Feb, [facility] [place] [id number] [place] [address], [place] [id number] Feb, [facility] [place] [id number] [place] [address], [place] [id number] Feb, [facility] [place] [id number] [place] [address], [place] [id number] Feb, [facility] [place] [address], [place] [id number] Feb, [facility] [place] [id number] [place] [address], [place] [id number] Feb, [facility] [place] [id number] [place] [address], [place] [id number] Feb, [facility] [place] [id number] [place] [address], [place] [id number] Feb, [facility] [place] [id number] [place] [address], [place] [id number] Feb, [facility] [place] [id number] [place] [address], [place] [id number] Feb, [facility] [place] [address] [id number] [id number] Jan, [facility] [place] [address] [id number] [place] [id number] Jan, [facility] [place] [address] [place] [id number] [id number] Jan, [facility] [address] [id number] [facility] [id number] Jan, Dental examination V72.2 [facility] [place] [address] [id number] [place] [address], [place] [id number] Jan, [facility] [place] [address] [id number] [place] [address], [place] [id number] Jan, [facility] [place] [address] [id number] [id number] Jan, [facility] [place] [address] [place] [id number] [place] [address], [place] [id number] Jan, [facility] [place] [address], [place] [id number] Jan, [facility] [place] [address] [id number] [place] [address], [place] [id number] 15 Jan, 2015 [facility] [place] [address] [id number] [place] [address], [place] [id number] 14 Jan, 2015 [facility] [place] [address] [id number] [place] [address], [place] [id number] Jan, [facility] [place] [address] [id number] [place] [address], [place] [id number] Jan, [facility] [place] [address] [id number] [place] [address], [place] [id number] Jan, [facility] [place] [address] [id number] [place] [address], [place] [id number] Jan, [facility] [place] [address] [id number] [place] [address], [place] [id number] Jan, [facility] [place] [address] [place] [id number] [place] [address], [place] [id number] Jan, [facility] [place] [address] [id number] [place] [address], [place] [id number] Jan, [facility] [place] [address], [place] [id number] Jan, 2014 [facility] [place] [address] [id number] [place] [id number] Jan, [facility] [place] [address] [id number] [place] [id number] Jan, 2014 [facility] [place] [address] [id number] [place] [id number] Jan, 2014 [facility] [place] [address] [id number] [place] [id number] Jan, 2014 [facility] [place] [address] [id number] [place] [id number] Jan, 2014 [facility] [place] [address] [id number] [place] [id number] Jan, [facility] [place] [address] [id number] [place] [id number] Jan, [facility] [place] [address] [id number] [place] [id number] Jan, [facility] [place] [address] [id number] [place] [id number] Jan, [facility] [place] [address] [id number] [place] [id number] December, [facility] [place] [address] [id number] [place] [id number] December, [facility] [place] [address] [id number] [place] [id number] December, [facility] [place] [address] [id number] [place] [id number] December, [facility] [place] [address] [id number] [place] [id number] December, [facility] [place] [address] [id number] [place] [id number] December, [facility] [place] [address] [id number] [place], [place] [id number] December, [facility] [place] [address] [id number] [place] [id number] December, [facility] [place] [address] [id number] [place] [id number] December, [facility] [place] [address] [id number] [place] [id number] December, [facility] [place] [address] [id number] [place] [id number] December, [facility] [place] [address] [id number] [place] [id number] December, [facility] [place] [address] [id number] [place] [id number] December, [facility] [place] [address] [facility]757[facility] [place] [id number] December, [facility] [place] [address] [id number] [facility]ALTH [facility] [id number] Nov, [facility] [place] [address] [id number] [facility]ALTH [facility] [id number] Nov, [facility] [place] [address] [facility]757[facility] [id number] Nov, [facility] [place] [address] [facility]757[facility] [place] [id number] Nov, [facility] [id number] [place] [address] Nov, [facility] [id number] [place] [address] Nov, [facility] [address] [address] Sep, [facility] [id number] [place] [address] Sep, [facility] [id number] [place] [address] Jul, [facility] [id number] [place] [address] Jul, [facility] [address] [address] Jul, [facility] [id number] [place] [address] Jul, [facility] [id number] [place] [address] Jul, [facility] [id number] [place] [address] Jul, [facility] [address] [facility] [id number] [place] [address] Jun, [facility] [address] [id number] [place] [address] Jun, [facility] [address] [id number] [place] [address] Jun, [facility] [address] [id number] [place] [address] Jun, [facility] [address] [id number] [place] [address] May, [facility] [address] [id number] [place] [address] May, [facility] [address] [id number] [place] [address] Feb, [facility] [address] [id number] [place] [address] Feb, [facility] [address] [id number] [place] [address] Feb, [facility] [address] [id number] [place] [address] Feb, [facility] [address] [id number] [place] [address] Jan, [facility] [address] [id number] [place] [address] Jan, [facility] [address] [id number] [place] [address] Jan, [facility] [address] [id number] [place] [address] Jan, [facility] [address] [id number] [place] [address] December, [facility] [address] [id number] [place] [address] December, [facility] [address] [facility] [place] [address] December, [facility] [address] [id number] [place] [address] December, [facility] [address] [facility] [id number] [place] [address] December, [facility] [address] [id number] [place] [address] December, [facility] [address] [id number] [place] [address] December, [facility] [address] [id number] [place] [address] December, [facility] [address] [id number] [place] [address] December, [facility] [address] [id number] [place] [address] December, [facility] [address] [id number] [place] [address] December, [facility] [address] [id number] [place] [address] December, [facility] [address] [id number] [place] [address] December, [facility] [address] [id number] [place] [address] December, [facility] [address] [id number] [place] [address] December, [facility] [address] [facility] [id number] [place] [address] December, [facility] [address] [id number] [place] [address] December, [facility] [address] [id number] [place] [address] Nov, [facility] [address] [id number] [place] [address] Nov, [facility] [address] [id number] [place] [address] Nov, [facility] [address] [id number] [place] [address] Nov, [facility] [address] [id number] [place] [address] Nov, [facility] [address] [id number] [place] [address] Nov, [facility] [address] [id number] [place] [address] Nov, [facility] [address] [id number] [place] [address] Nov, [facility] [address] [id number] [place] [address] Nov, [facility] [address] [id number] [place] [address] Nov, [facility] [address] [id number] [place] [address] Nov, [facility] [address] [id number] [place] [address] Nov, [facility] [address] [id number] [place] [address] Nov, [facility] [address] [id number] [place] [address] Nov, [facility] [address] [id number] [place] [address] Nov, [facility] [address] [id number] [place] [address] Nov, [facility] [address] [id number] [place] [address] Oct, [facility] [address] [id number] [place] [address] Oct, [facility] [address] [id number] [place] [address] Oct, [facility] [address] [id number] [place] [address] Oct, [facility] [address] [id number] [place] [address] Oct, [facility] [address] [id number] [place] [address] Oct, [facility] [address] [id number] [place] [address] Oct, [facility] [address] [id number] [place] [address] Oct, [facility] [address] [id number] [place] [address] Sep, [facility] [address] [id number] [place] [address] Sep, [facility] [address] [id number] [place] [address] Sep, [facility] [address] [id number] [place] [address] Sep, [facility] [address] [id number] [place] [address] Sep, [facility] [address] [id number] [place] [address] Sep, [facility] [address] [id number] [place] [address] Sep, [facility] [address] [id number] [place] [address] Sep, [facility] [address] [id number] [place] [address] Sep, [facility] [address] [id number] [place] [address] Sep, [facility] [address] [id number] [place] [address] Aug, [facility] [address] [id number] [place] [address] Aug, [facility] [address] [id number] [place] [address] Jul, [facility] [address] [id number] [place] [address] Jul, [facility] [address] [id number] [place] [address] Jul, [facility] [address] [id number] [place] [address] Jul, [facility] [address] [id number] [place] [address] Jul, [facility] [address] [id number] [place] [address] Jul, [facility] [id number] [place] [address] Jun, [facility] [address] [id number] [place] [address] Jun, [facility] [address] [id number] [place] [address] Jun, [facility] [address] [id number] [place] [address] May, [facility] [address] [id number] [place] [address] December, [facility] [address] [id number] [place] [address] December, [facility] [address] [id number] [place] [address] Jan, [facility] [address] [id number] [place] [address] Jan, [facility] [address] [id number] [place] [address] Jan, [facility] [address] [id number] [place] [address] Jan, [facility] [address] [id number] [place] [address] December, [facility] [address] [facility] [id number] [place] [id number] December, [facility] [address] [id number] [place] [address] December, [facility] [id number] [place] [address] December, [facility] [address] [id number] [place] [address] December, [facility] [id number] [place] [address] Oct, [facility] [address] [id number] [place] [address] Jul, [facility] [address] [id number] [place] [address] Jul, [facility] [address] [id number] [place] [address] Jun, IMMUNIZATIONS No Known Immunizations SOCIAL HISTORY Never Assessed REASON FOR VISIT PLAN OF CARE VITAL SIGNS Height 63 in 2013-11-15 Weight 182.4 lbs 2013-11-15 Heart Rate 82 bpm 2013-11-15 Respiratory Rate 20 2013-11-15 Blood pressure systolic 126 mmHg 2013-11-15 Blood pressure diastolic 70 mmHg 2013-11-15 MEDICATIONS No Known Medications RESULTS No Results PROCEDURES Procedure Date Ordered Result Body Site GLUCOSE TEST November 15, 2013 VENIPUNCT, ROUTINE* November 15, 2013 URINE-NO MICRO November 15, 2013 INSTRUCTIONS MEDICATIONS ADMINISTERED No Known Medications MEDICAL [...]
--- OUTSIDE RECORDS SUMMARY | 2019-11-24 00:45 | XMS REPORT ---
Author Author Vilma PEÑALOZA Organization [facility] Address [address] [place] [address] Care Team Providers Care Watch Inspector Name Role Phone WILMAN PEÑALOZA Unavailable PROBLEMS Type Condition ICD9-CM Code ZYI06-EW Code Onset Dates Condition S tatus SNOMED Code Problem Elevated blood pressure reading without diagnosi s of hypertension 796.2 Active 628200951 Problem Irregular menstrual cycle N92.6 Acti ve 99818157 Problem Lower abdominal pain R10.30 Active 81589223 Problem Chronic gingivitis, plaque induced K05.10 Active 13734699 Problem Positive serology for syphilis A53.0 Active 661547591 Problem Constipation, unspecified constipation type K59.00 Active 50509540 Problem Fatigue, unspecified type R53.83 Acti ve 83708879 Problem Anxiety F41.9 Active 60029231 Problem Tobacco abuse Z72.0 Active 952012 05 ALLERGIES No Information ENCOUNTERS Encounter Location Date Diagnosis [facility] [address] [id number] [address] [place] [address] Jul, Pharyngitis J02.9 [facility] [id number] [place] [address] May, Positive serology for syphilis A53.0 [facility] [id number] [place] [address] May, [facility] [id number] [place] [address] Apr, [place] [address] [address] Apr, Concern about STD in female without diag nosis Z71.1 ; Needlestick injury due to hypodermic needle W46.0XXA ; Candidal vaginitis B37.3 and Trichomonas vaginitis A59.01 [facility] [address] [id number] [address] [place] [address] December, UTI symptoms R39.9 and Acute cystitis with hematuria N30.[address] [id number] Feb, Acute cystitis without hematuria N30.[address] [id number] Oct, [facility] [address] [facility] [place] [address] Oct, Dental examination Z01.20 [facility] [address] [id number] [place] [address] Oct, Dental examination Z01.20 and Chronic gi ngivitis, plaque induced K05.10 [facility] [id number] [place] [address] Oct, Dental examination Z01.[address] [id number] Jun, [address] [id number] May, [address] [id number] May, [address] [id number] Apr, [address] [id number] Apr, [address] [id number] Feb, Encounter for test, result unknown Z32.[address] [id number] Feb, [address] [id number] Feb, [address] [id number] Feb, Encounter for test, result unknown Z32.00 [address] [place] [address] Jan, [facility] [place] [address] [id number] [place] [address] Jan, [facility] [place] [address] [id number] [place] [address] Jan, [facility] [place] [address] [id number] [place] [address] December, [facility] [place] [address] [id number] [place] [address] December, [facility] [place] [address] [id number] [place] [id number] Nov, [facility] [place] [address] [id number] [place] [address] Nov, [facility] [place] [address] [id number] [place] [address] Nov, [facility] [place] [address] [id number] [place] [id number] Oct, [facility] [place] [address] [id number] [place] [address]34[address] Oct, [facility] [place] [address] [id number] [place] [id number] Oct, [facility] [place] [address] [id number] [place] [address] Oct, [facility] [place] [address] [id number] [place] [address]1021[place] Sep, [facility] [place] [address] [id number] [place] 47[address] Sep, [facility] [place] [address] [id number] [place] [id number] Sep, [facility] [place] [address] [id number] [place] 4139[address] Sep, [facility] [place] [address] [id number] [place] 480[address]38 Sep, [facility] [place] [address] [id number] [place] [id number] Aug, [facility] [place] [address] [id number] [place] [id number] Jul, [facility] [place] [address] [id number] [address] Jul, [facility] [place] [address], [place] [id number] Jun, [facility] [place] [address], [place] [address] Jun, [facility] [place] [address], [place] [id number] Jun, [facility] [place] [address], [place] [id number] Jun, [facility] [place] [address], [place] [id number] Jun, [facility] [place] [address], [place] [id number] Jun, [facility] [place] [address], [place] [id number] May, [facility] [place] [address], [place] [id number] May, [facility] [place] [address], [place] [address] May, [facility] [address] [facility] [place] [address] Apr, Bronchitis J40 [facility] [place] [address] [id number] Mar, [facility] [place] [address] [id number] Feb, [facility] [place] [address] [id number] Feb, [facility] [place] [address] [id number] Feb, Sore throat J02.9 and Ear pain, right H92.01 [facility] [place] [address] [id number] Jan, [facility] [place] [address] [id number] Jan, Viral syndrome B34.9 ; Other seasonal allergic rhinitis J30.2 and Post-nasal drip R09.82 [facility] [place] [address] [id number] Jan, [place] [id number] [place] [id number] Nov, [address] [id number] Oct, test positive Z32.01 [place] [address] [address] Oct, [place] [address] [address] Oct, [place] [address] [address] Sep, Kidney stones N20.0 [place] [address] [address] 18 Sep, 2015 [place] [address] [address] Sep, Pelvic pain R10.2 ; Left lower quadrant pain R10.32 ; Vaginal discharge N89.8 ; Routine screening for STI (sexually transmitted infection) Z11.3 ; Unprotected sexual intercourse Z72.51 ; Kidney stone N20.0 ; History of dyspareunia in female Z87.42 and Screening for malignant neoplasm of cervix Z12.4 [place] [address] [address] 12 Jun, 2015 Constipation, unspecified constipation t ype K59.00 ; Lower abdominal pain R10.30 ; Irregular menstrual cycle N92.6 ; Anxiety F41.9 ; Fatigue, unspecified type R53.83 and Tobacco abuse Z72.[address] [id number] Jun, [address] [id number] Jun, Nausea R11.[address] [id number] May, Alopecia L65.[address] [id number] May, [facility] [place] [address] [id number] [id number] Apr, [facility] [place] [address] [id number] [address] Mar, [facility] [place] [id number] [place] [address], [place] [id number] Mar, [facility] [place] [address] [id number] [address] Mar, [facility] [address] [facility] [place] [address] Mar, test negative V72.41 [facility] [place] [id number] [place] [address], [place] [id number] Mar, [facility] [place] [id number] [place] [address], [place] [id number] Mar, [facility] [place] [id number] [place] [address], [place] [id number] Feb, [facility] [place] [id number] [place] [address], [place] [address]1 Feb, [facility] [place] [id number] [place] [address], [place] [id number] Feb, [facility] [place] [id number] [place] [address], [place] [id number] Feb, [facility] [place] [id number] [place] [address], [place] [id number] Feb, [facility] [place] [id number] [place] [address], [place] [id number] Feb, [facility] [place] [address], [place] [id number] Feb, [facility] [place] [id number] [place] [address], [place] [id number] Feb, [facility] [place] [id number] [place] [address], [place] [id number] Feb, [facility] [place] [id number] [place] [address], [place] 147928625 Feb, [facility] [place] [id number] [place] [address], [place] [id number] Feb, [facility] [place] [id number] [place] [address], [place] 142996927 Feb, [facility] [place] [address] [id number] [facility] 916482996 Jan, [facility] [place] [address] [id number] [place] 160381559 Jan, [facility] [place] [address] [place] 29543PL02350XPH[facility]IPS [facility] [address] Jan, [facility] [place] [address] [facility] [address] [id number] [facility] [id number] Jan, Dental examination V72.2 [facility] [place] [address] [id number] [place] [address], [place] [id number] Jan, [facility] [place] [address] [id number] [place] [address], [place] 464854783 Jan, [facility] [place] [address] [id number] [facility] [id number] Jan, [facility] [place] [address] [place] [id number] [place] [address], [place] [id number] Jan, [facility] [place] [address], [place] [address] Jan, [facility] [place] [address] [id number] [place] [address], [place] [id number] 15 Jan, 2015 [facility] [place] [address] [id number] [place] [address], [place] [id number] 14 Jan, 2015 [facility] [place] [address] [id number] [place] [address], [place] 912553790 Jan, [facility] [place] [address] [id number] [place] [address], [place] [id number] Jan, [facility] [place] [address] [id number] [place] [address], [place] [id number] Jan, [facility] [place] [address] [id number] [place] [address], [place] 955541504 Jan, [facility] [place] [address] [id number] [place] [address], [place] [id number] Jan, [facility] [place] [address] [id number] [place] [address], [place] [id number] Jan, [facility] [place] [address] [id number] [place] [address], [place] [id number] Jan, [facility] [place] [address], [place] [id number] Jan, 2014 [facility] [place] [address] [id number] [place] [id number] Jan, [facility] [place] [address] [id number] [place] [id number] Jan, 2014 [facility] [place] [address] [id number] [place] [id number] Jan, 2014 [facility] [place] [address] [id number] [place] [id number] Jan, 2014 [facility] [place] [address] [id number] [place] [id number] Jan, 2014 [facility] [place] [address] [id number] [place] [id number] Jan, [facility] [place] [address] [id number] [place] [id number] Jan, [facility] [place] [address] [id number] [place] [id number] Jan, [facility] [place] [address] [id number] [place] 454256069 Jan, [facility] [place] [address] [id number] [place], [place] [id number] December, [facility] [place] [address] [id number] [place] 356327784 December, [facility] [place] [address] [id number] [place] 410883582 December, [facility] [place] [address] [id number] [place] [id number] December, [facility] [place] [address] [id number] [place] [id number] December, [facility] [place] [address] [id number] [place] [id number] December, [facility] [place] [address] [id number] [place] 350246688 December, [facility] [place] [address] [id number] [place], [place] 852810002 December, [facility] [place] [address] [id number] [place], [place] [id number] December, [facility] [place] [address] [id number] [place] [id number] December, [facility] [place] [address] [id number] [place] [id number] December, [facility] [place] [address] [id number] [place] [id number] December, [facility] [place] [address] [id number] [place] [id number] December, [facility] [place] [address] [facility]07757[facility] [id number] December, [facility] [place] [address] [id number] COUNTY [facility] [id number] Nov, [facility] [place] [address] [id number] [id number] Nov, [facility] [place] [address] [facility]07757[facility] [id number] Nov, [facility] [place] [address] [facility]07757[facility] [id number] Nov, [facility] [id number] [place] [address] Nov, [facility] [id number] [place] [address] Nov, [facility] [address] [address] Sep, [facility] [id number] [place] [address] Sep, [facility] [id number] [place] [address] Jul, [facility] [id number] [place] [address] Jul, [facility] [address] [address] Jul, [facility] [id number] [place] [address] Jul, [facility] [id number] [place] [address] Jul, [facility] [id number] [place] [address] Jul, [facility] [address] [id number] [place] [address] Jun, [facility] [address] [id number] [place] [address] Jun, [facility] [address] [facility] [place] [address] Jun, [facility] [address] [id number] [place] [address] Jun, [facility] [address] [facility] [place] [address] May, [facility] [address] [id number] [place] [address] May, [facility] [address] [facility] [place] [address] Feb, [facility] [address] [id number] [place] [address] Feb, [facility] [address] [id number] [place] [address] Feb, [facility] [address] [facility] [place] [address] Feb, [facility] [address] [facility] [place] [address] Jan, [facility] [address] [facility] [place] [address] Jan, [facility] [address] [id number] [place] [address] Jan, [facility] [address] [id number] [place] [address] Jan, [facility] [address] [facility] [place] [address] December, [facility] [address] [facility] [place] [address] December, [facility] [address] [facility] [place] [address] December, [facility] [address] [id number] [place] [address] December, [facility] [address] [id number] [place] [address] December, [facility] [address] [facility] [place] [address] December, [facility] [address] [id number] [place] [address] December, [facility] [address] [id number] [place] [address] December, [facility] [address] [id number] [place] [address] December, [facility] [address] [facility] [place] [address] December, [facility] [address] [id number] [place] [address] December, [facility] [address] [id number] [place] [address] December, [facility] [address] [id number] [place] [address] December, [facility] [address] [id number] [place] [address] December, [facility] [address] [id number] [place] [address] December, [facility] [address] [facility] [id number] [place] [address] December, [facility] [address] [id number] [place] [address] December, [facility] [address] [id number] [place] [address] Nov, [facility] [address] [id number] [place] [address] Nov, [facility] [address] [id number] [place] [address] Nov, [facility] [address] [id number] [place] [address] Nov, [facility] [address] [id number] [place] [address] Nov, [facility] [address] [id number] [place] [address] Nov, [facility] [address] [id number] [place] [address] Nov, [facility] [address] [id number] [place] [address] Nov, [facility] [address] [id number] [place] [address] Nov, [facility] [address] [id number] [place] [address] Nov, [facility] [address] [id number] [place] [address] Nov, [facility] [address] [id number] [place] [address] Nov, [facility] [address] [id number] [place] [address] Nov, [facility] [address] [id number] [place] [address] Nov, [facility] [address] [id number] [place] [address] Nov, [facility] [address] [id number] [place] [address] Nov, [facility] [address] [id number] [place] [address] Oct, [facility] [address] [id number] [place] [address] Oct, [facility] [address] [id number] [place] [address] Oct, [facility] [address] [id number] [place] [address] Oct, [facility] [address] [id number] [place] [address] Oct, [facility] [address] [id number] [place] [address] Oct, [facility] [address] [id number] [place] [address] Oct, [facility] [address] [id number] [place] [address] Oct, [facility] [address] [id number] [place] [address] Sep, [facility] [address] [id number] [place] [address] Sep, [facility] [address] [id number] [place] [address] Sep, [facility] [address] [id number] [place] [address] Sep, [facility] [address] [id number] [place] [address] Sep, [facility] [address] [id number] [place] [address] Sep, [facility] [address] [id number] [place] [address] Sep, [facility] [address] [id number] [place] [address] Sep, [facility] [address] [id number] [place] [address] Sep, [facility] [address] [id number] [place] [address] Sep, [facility] [address] [id number] [place] [address] Aug, [facility] [address] [id number] [place] [address] Aug, [facility] [address] [id number] [place] [address] Jul, [facility] [address] [id number] [place] [address] Jul, [facility] [address] [id number] [place] [address] Jul, [facility] [address] [id number] [place] [address] Jul, [facility] [address] [id number] [place] [address] Jul, [facility] [address] [id number] [place] [address] Jul, [facility] [id number] [place] [address] Jun, [facility] [address] [id number] [place] [address] Jun, [facility] [address] [id number] [place] [address] Jun, [facility] [address] [id number] [place] [address] May, [facility] [address] [id number] [place] [address] December, [facility] [address] [id number] [place] [address] December, [facility] [address] [id number] [place] [address] Jan, [facility] [address] [id number] [place] [address] Jan, [facility] [address] [id number] [place] [address] Jan, [facility] [address] [id number] [place] [address] Jan, [facility] [address] [id number] [place] [address] December, [facility] [address] [facility][1] [id number] [place] [id number] December, [facility] [address] [id number] [place] [address] December, [facility] [id number] [place] [address] December, [facility] [address] [id number] [place] [address] December, [facility] [id number] [place] [address] Oct, [facility] [address] [id number] [place] [address] Jul, [facility] [address] [id number] [place] [address] Jul, [facility] [address] [id number] [place] [address] Jun, IMMUNIZATIONS No Known Immunizations SOCIAL HISTORY [...]
--- OUTSIDE RECORDS SUMMARY | 2019-11-24 00:45 | XMS REPORT ---
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 Name Role Phone WILMAN PEÑALOZA Unavailable PROBLEMS Type Condition ICD9-CM Code YOU39-AE Code Onset Dates Condition S tatus SNOMED Code Problem Elevated blood pressure reading without diagnosi s of hypertension 796.2 Active 583195925 Problem Irregular menstrual cycle N92.6 Acti ve 43539038 Problem Lower abdominal pain R10.30 Active 76760098 Problem Chronic gingivitis, plaque induced K05.10 Active 70331924 Problem Positive serology for syphilis A53.0 Active 345295505 Problem Constipation, unspecified constipation type K59.00 Active 49769644 Problem Fatigue, unspecified type R53.83 Acti ve 79519895 Problem Anxiety F41.9 Active 75402702 Problem Tobacco abuse Z72.0 Active 651115 05 ALLERGIES No Information ENCOUNTERS Encounter Location Date Diagnosis [facility] [address] [facility] [id number] [address] [place] [address] Jul, Pharyngitis J02.9 [facility] [id number] [place] [address] May, Positive serology for syphilis A53.0 [facility] [id number] [place] [address] May, [facility] [id number] [place] [address] Apr, [place] [address] [address] Apr, Concern about STD in female without diag nosis Z71.1 ; Needlestick injury due to hypodermic needle W46.0XXA ; Candidal vaginitis B37.3 and Trichomonas vaginitis A59.01 [facility] [address] [facility] [id number] [address] [place] [address] December, UTI symptoms R39.9 and Acute cystitis with hematuria N30.[address] [id number] Feb, Acute cystitis without hematuria N30.[address] [id number] Oct, [facility] [address] [facility] [place] [id number] Oct, Dental examination Z01.20 [facility] [id number] [place] [address] Oct, Dental examination Z01.20 and Chronic gi ngivitis, plaque induced K05.10 [facility] [id number] [place] [address] Oct, Dental examination Z01.[address] [id number] Jun, [address] [id number] May, [address] [id number] May, [address] [id number] Apr, [address] [id number] Apr, [address] [id number] Feb, Encounter for test, result unknown Z32.[address] [id number] Feb, [address] [id number] Feb, [address] [id number] Feb, Encounter for test, result unknown Z32.00 [address] [place] [id number] Jan, [facility] [place] [address] [id number] [place] [id number] Jan, [facility] [place] [address] [id number] [place] [id number] Jan, [facility] [place] [address] [id number] [place] [id number] December, [facility] [place] [address] [id number] [place] [id number] December, [facility] [place] [address] [id number] [place] [id number] Nov, [facility] [place] [address] [id number] [place] [id number] Nov, [facility] [place] [address] [id number] [place] [id number] Nov, [facility] [place] [address] [id number] [place] [id number] Oct, [facility] [place] [address] [id number] [place] [id number] Oct, [facility] [place] [address] [id number] [place] [id number] Oct, [facility] [place] [address] [id number] [place] [id number] Oct, [facility] [place] [address] [id number] [place] [id number] Sep, [facility] [place] [address] [id number] [place] [id number] Sep, [facility] [place] [address] [id number] [place] [id number] Sep, [facility] [place] [address] [id number] [place] [id number] Sep, [facility] [place] [address] [id number] [place] [id number] Sep, [facility] [place] [address] [id number] [place] [id number] Aug, [facility] [place] [address] [id number] [place] [id number] Jul, [facility] [place] [address] [id number] [id number] Jul, [facility] [place] [address] [id number] Jun, [facility] [place] [address], [place] [id number] Jun, [facility] [place] [address], [place] [id number] Jun, [facility] [place] [address], [place] [id number] Jun, [facility] [place] [address] [id number] Jun, [facility] [place] [address], [place] [id number] Jun, [facility] [place] [address], [place] [id number] May, [facility] [place] [address], [place] [id number] May, [facility] [place] [address], [place] [id number] May, [facility] [address] [id number] [place] [address] Apr, Bronchitis J40 [facility] [place] [address] [id number] Mar, [facility] [place] [address] [id number] Feb, [facility] [place] [address] [id number] Feb, [facility] [place] [address] [id number] Feb, Sore throat J02.9 and Ear pain, right H92.01 [facility] [place] [address] [id number] Jan, [facility] [place] [address] [id number] Jan, Viral syndrome B34.9 ; Other seasonal allergic rhinitis J30.2 and Post-nasal drip R09.82 [facility] [place] [address] [id number] Jan, [place] [id number] [place] [id number] Nov, [address] [id number] Oct, test positive Z32.01 [place] [address] [address] Oct, [place] [address] [address] Oct, [place] [address] [address] Sep, Kidney stones N20.0 [place] [address] [address] 18 Sep, 2015 [place] [address] [address] Sep, Pelvic pain R10.2 ; Left lower quadrant pain R10.32 ; Vaginal discharge N89.8 ; Routine screening for STI (sexually transmitted infection) Z11.3 ; Unprotected sexual intercourse Z72.51 ; Kidney stone N20.0 ; History of dyspareunia in female Z87.42 and Screening for malignant neoplasm of cervix Z12.4 [place] [address] [address] 12 Jun, 2015 Constipation, unspecified constipation t ype K59.00 ; Lower abdominal pain R10.30 ; Irregular menstrual cycle N92.6 ; Anxiety F41.9 ; Fatigue, unspecified type R53.83 and Tobacco abuse Z72.[address] [id number] Jun, [address] [id number] Jun, Nausea R11.[address] [id number] May, Alopecia L65.[address] [id number] May, [facility] [place] [address] [id number] [id number] Apr, [facility] [place] [address] [id number] [id number] Mar, [facility] [place] [id number] [place] [address], [place] [id number] Mar, [facility] [place] [address] [id number] [id number] Mar, [facility] [address] [facility] [place] [address] Mar, test negative V72.41 [facility] [place] [id number] [place] [address], [place] [id number] Mar, [facility] [place] [id number] [place] [address], [place] [id number] Mar, [facility] [place] [id number] [place] [address], [place] [id number] Feb, [facility] [place] [id number] [place] [address], [place] [id number] Feb, [facility] [place] [id number] [place] [address], [place] [id number] Feb, [facility] [place] [id number] [place] [address], [place] [id number] Feb, [facility] [place] [id number] [place] [address], [place] [id number] Feb, [facility] [place] [id number] [place] [address], [place] [id number] Feb, [facility] [place] [address], [place] [id number] Feb, [facility] [place] [id number] [place] [address], [place] [id number] Feb, [facility] [place] [id number] [place] [address], [place] [id number] Feb, [facility] [place] [id number] [place] [address], [place] [id number] Feb, [facility] [place] [id number] [place] [address], [place] [id number] Feb, [facility] [place] [id number] [place] [address], [place] [id number] Feb, [facility] [place] [address] [id number] [place] [id number] Jan, [facility] [place] [address] [id number] [place] [id number] Jan, [facility] [place] [address] [place] [id number] [id number] Jan, [facility] [address] [facility] [address] [id number] [facility] [id number] Jan, Dental examination V72.2 [facility] [place] [address] [id number] [place] [address], [place] [id number] Jan, [facility] [place] [address] [id number] [place] [address], [place] [id number] Jan, [facility] [place] [address] [id number] [id number] Jan, [facility] [place] [address] [place] [id number] [place] [address], [place] [id number] Jan, [facility] [place] [address], [place] [id number] Jan, [facility] [place] [address] [id number] [place] [address], [place] [id number] 15 Jan, 2015 [facility] [place] [address] [id number] [place] [address], [place] [id number] 14 Jan, 2015 [facility] [place] [address] [id number] [place] [address], [place] [id number] Jan, [facility] [place] [address] [id number] [place] [address], [place] [id number] Jan, [facility] [place] [address] [id number] [place] [address], [place] [id number] Jan, [facility] [place] [address] [id number] [place] [address], [place] [id number] Jan, [facility] [place] [address] [id number] [place] [address], [place] [id number] Jan, [facility] [place] [address] [id number] [place] [address], [place] [id number] Jan, [facility] [place] [address] [id number] [place] [address], [place] [id number] Jan, [facility] [place] [address], [place] [id number] Jan, 2014 [facility] [place] [address] [id number] [place] [id number] Jan, [facility] [place] [address] [id number] [place] [id number] Jan, 2014 [facility] [place] [address] [id number] [place] [id number] Jan, 2014 [facility] [place] [address] [id number] [place] [id number] Jan, 2014 [facility] [place] [address] [id number] [place] [id number] Jan, 2014 [facility] [place] [address] [id number] [place] [id number] Jan, [facility] [place] [address] [id number] [place] [id number] Jan, [facility] [place] [address] [id number] [place] [id number] Jan, [facility] [place] [address] [id number] [place] [id number] Jan, [facility] [place] [address] [id number] [place] [id number] December, [facility] [place] [address] [id number] [place] [id number] December, [facility] [place] [address] [id number] [place] [id number] December, [facility] [place] [address] [id number] [place] [id number] December, [facility] [place] [address] [id number] [place] [id number] December, [facility] [place] [address] [id number] [place] [id number] December, [facility] [place] [address] [id number] [place] [id number] December, [facility] [place] [address] [id number] [place] [id number] December, [facility] [place] [address] [id number] [place] [id number] December, [facility] [place] [address] [id number] [place] [id number] December, [facility] [place] [address] [id number] [place] [id number] December, [facility] [place] [address] [id number] [place] [id number] December, [facility] [place] [address] [id number] [place] [id number] December, [facility] [place] [address] [facility]07757[facility] [id number] December, [facility] [place] [address] [id number] [id number] Nov, [facility] [place] [address] [id number] [id number] Nov, [facility] [place] [address] [facility]07757[facility] [id number] Nov, [facility] [place] [address] [facility]07757[facility] [id number] Nov, [facility] [id number] [place] [address] Nov, [facility] [id number] [place] [address] Nov, [facility] [address] [address] Sep, [facility] [id number] [place] [address] Sep, [facility] [id number] [place] [address] Jul, [facility] [id number] [place] [address] Jul, [facility] [address] [address] Jul, [facility] [id number] [place] [address] Jul, [facility] [id number] [place] [address] Jul, [facility] [id number] [place] [address] Jul, [facility] [address] [facility] [id number] [place] [address] Jun, [facility] [address] [id number] [place] [address] Jun, [facility] [address] [id number] [place] [address] Jun, [facility] [address] [id number] [place] [address] Jun, [facility] [address] [id number] [place] [address] May, [facility] [address] [id number] [place] [address] May, [facility] [address] [id number] [place] [address] Feb, [facility] [address] [id number] [place] [address] Feb, [facility] [address] [id number] [place] [address] Feb, [facility] [address] [id number] [place] [address] Feb, [facility] [address] [id number] [place] [address] Jan, [facility] [address] [id number] [place] [address] Jan, [facility] [address] [id number] [place] [address] Jan, [facility] [address] [id number] [place] [address] Jan, [facility] [address] [id number] [place] [address] December, [facility] [address] [id number] [place] [address] December, [facility] [address] [id number] [place] [address] December, [facility] [address] [id number] [place] [address] December, [facility] [address] [facility] [id number] [place] [address] December, [facility] [address] [id number] [place] [address] December, [facility] [address] [id number] [place] [address] December, [facility] [address] [id number] [place] [address] December, [facility] [address] [id number] [place] [address] December, [facility] [address] [id number] [place] [address] December, [facility] [address] [id number] [place] [address] December, [facility] [address] [id number] [place] [address] December, [facility] [address] [id number] [place] [address] December, [facility] [address] [id number] [place] [address] December, [facility] [address] [id number] [place] [address] December, [facility] [address] [facility] [id number] [place] [address] December, [facility] [address] [id number] [place] [address] December, [facility] [address] [id number] [place] [address] Nov, [facility] [address] [id number] [place] [address] Nov, [facility] [address] [id number] [place] [address] Nov, [facility] [address] [id number] [place] [address] Nov, [facility] [address] [id number] [place] [address] Nov, [facility] [address] [id number] [place] [address] Nov, [facility] [address] [id number] [place] [address] Nov, [facility] [address] [id number] [place] [address] Nov, [facility] [address] [id number] [place] [address] Nov, [facility] [address] [id number] [place] [address] Nov, [facility] [address] [id number] [place] [address] Nov, [facility] [address] [id number] [place] [address] Nov, [facility] [address] [id number] [place] [address] Nov, [facility] [address] [id number] [place] [address] Nov, [facility] [address] [id number] [place] [address] Nov, [facility] [address] [id number] [place] [address] Nov, [facility] [address] [id number] [place] [address] Oct, [facility] [address] [id number] [place] [address] Oct, [facility] [address] [id number] [place] [address] Oct, [facility] [address] [id number] [place] [address] Oct, [facility] [address] [id number] [place] [address] Oct, [facility] [address] [id number] [place] [address] Oct, [facility] [address] [id number] [place] [address] Oct, [facility] [address] [id number] [place] [address] Oct, [facility] [address] [id number] [place] [address] Sep, [facility] [address] [id number] [place] [address] Sep, [facility] [address] [id number] [place] [address] Sep, [facility] [address] [id number] [place] [address] Sep, [facility] [address] [id number] [place] [address] Sep, [facility] [address] [id number] [place] [address] Sep, [facility] [address] [id number] [place] [address] Sep, [facility] [address] [id number] [place] [address] Sep, [facility] [address] [id number] [place] [address] Sep, [facility] [address] [id number] [place] [address] Sep, [facility] [address] [id number] [place] [address] Aug, [facility] [address] [id number] [place] [address] Aug, [facility] [address] [id number] [place] [address] Jul, [facility] [address] [id number] [place] [address] Jul, [facility] [address] [id number] [place] [address] Jul, [facility] [address] [id number] [place] [address] Jul, [facility] [address] [id number] [place] [address] Jul, [facility] [address] [id number] [place] [address] Jul, [facility] [id number] [place] [address] Jun, [facility] [address] [id number] [place] [address] Jun, [facility] [address] [id number] [place] [address] Jun, [facility] [address] [id number] [place] [address] May, [facility] [address] [id number] [place] [address] December, [facility] [address] [id number] [place] [address] December, [facility] [address] [id number] [place] [address] Jan, [facility] [address] [id number] [place] [address] Jan, [facility] [address] [id number] [place] [address] Jan, [facility] [address] [id number] [place] [address] Jan, [facility] [address] [id number] [place] [address] December, [facility] [address] [facility] [id number] [place] [id number] December, [facility] [address] [id number] [place] [address] December, [facility] [id number] [place] [address] December, [facility] [address] [id number] [place] [address] December, [facility] [id number] [place] [address] Oct, [facility] [address] [id number] [place] [address] Jul, [facility] [address] [id number] [place] [address] Jul, [facility] [address] [id number] [place] [address] Jun, IMMUNIZATIONS No Known Immunizations SOCIAL HISTORY [...]
--- OUTSIDE RECORDS SUMMARY | 2019-11-24 00:45 | XMS REPORT ---
Author Author [employer]. Organization [employer] Address [address] [address] Care Team Providers Care Basting Marker Name Role Phone REBOLLAR, ANGELIA Unavailable Unavailable HELLWIG, KAM Unavailable Unavailable AGUILA CASHERO, BURTON Unavailable Unavailable NAVI CALISAY Unavailable Unavailable CAITLIN SEYMOUR Unavailable Unavailable [facility] Unavailable JENNIFER POZO Unavailable NO, LOCAL PHYSICIAN Unavailable Unavailable REBOLLAR, ANGELIA Unavailable REBOLLAR, ANGELIA Unavailable REBOLLAR, ANGELIA Unavailable REBOLLAR, ANGELIA Unavailable REBOLLAR, ANGELIA Unavailable REBOLLAR, ANGELIA Unavailable REBOLLAR, ANGELIA Unavailable [facility] Unavailable AGUILA CASHERO, BURTON Unavailable AGUILA CASHERO, BURTON Unavailable REBOLLAR, ANGELIA Unavailable SHABNAM HUDDLESTON Unavailable YOUNG KAY Unavailable CHRISTIANO RosasSIE Unavailable JESSI PLUNKETTA Unavailable DEGRAFFENREID KINGFAMILIA LIEBERMAN Unavailable JENNIFER POZO DO Unavailable Unavailable Migration, Doctor Unavailable Unavailable Migration, Doctor Unavailable Unavailable Migration, Doctor Unavailable Unavailable DELFINO LedesmaALE Unavailable Unavailable TIAGO PEDROZA DO Unavailable Unavailable TIAGO PEDROZA DO Unavailable Unavailable dignaHEIMELLIOT NELLY Unavailable Jerri NELLY Unavailable Jerri NELLY Unavailable CHENCHO AGUIRRE Unavailable Unavailable PAONI, RANDY Unavailable Unavailable PAONI, RANDY Unavailable Unavailable Migration, Doctor Unavailable Unavailable CAROLINE, CHEN Unavailable Unavailable HOWJOSEP, CHEN Unavailable Unavailable HOWJOSEP, CHEN Unavailable Unavailable REBOLLAR, ANGELIA Unavailable REBOLLAR, ANGELIA Unavailable REBOLLAR, ANGELIA Unavailable zzHEIMAN, NELLY Unavailable zzHEIMAN, NELLY Unavailable zzHEIMAN, NELLY Unavailable ANABELA, WILMAN Unavailable REBOLLAR, ANGELIA Unavailable ANABELA, WILMAN Unavailable REBOLLAR, ANGELIA Unavailable REBOLLAR, ANGELIA Unavailable REBOLLAR, ANGELIA Unavailable ANABELA, WILMAN Unavailable REBOLLAR, ANGELIA Unavailable REBOLLAR, ANGELIA Unavailable ANABELA, WILMAN Unavailable REBOLLAR, ANGELIA Unavailable zzHEIMAN, NELLY Unavailable REBOLLAR, ANGELIA Unavailable ANABELA, WILMAN Unavailable ANABELA, WILMAN Unavailable ANABELA, WILMAN Unavailable ANABELA, WILMAN Unavailable ANABELA, WILMAN Unavailable ANABELA, WILMAN Unavailable ANABELA, WILMAN Unavailable ANABELA, WILMAN Unavailable Allergies Normalized Allergy Reported Date of Reaction(s) Care Provider Facility Allergy Type classification allergen Allergy Onset DA (3 Unclassified No Known Drug 04-19-2013 - no information JENNIFER POZO Not Available sources.) Allergies , DO (56514) no information Unclassified NO KNOWN DRUG UNKNOWN [facility] (6 sources[address] [facility] (26008) Medications Current Medications Medication Ingredient Drug Dose Dates Status Sig Sig Care Class(es) (Normalized) (Original) Provid er amoxicillin amoxicillin Penicillin- 02-24-20 Active no Amoxi cillin- no 500 mg / / class 18 - information Pot name clavulanate clavulanate Antibacteri 03-02-20 Clavulanate (no 125 mg oral Translation al 18 500-125 MG phone) tablet (1 s: [ Orally every source.) Amoxicillin 12 hrs 1 -Pot tablet 12h Clavulanate Feb, 500-125 MG] Feb, 07 days Active azithromyci Azithromyci Macrolide 1000 01-27-20 Active take 4 Zithromax no n 250 mg n Antimicrobi mg 12 tablets by 250 mg 4 na me oral tablet Translation al mouth once tablet by (no (1 source.) s: [ daily Oral route 1 phone) Zithromax time per day 250 mg] for 1 dose(s) Jan, Active fluconazole Fluconazole Azole 150 mg 01-15-20 Active take 1 Dif lucan 150 no 150 mg oral Translation Antifungal 12 tablet by mg take 1 name tablet (1 s: [ mouth once tablet by (no source.) Diflucan daily Oral route phone) 150 mg] once 1 time per day for 1 daywith a full glass of water December, Active no no Active no no no information information information information name (4 (no sources.) phone) Active no no name inform Orally (no ation Once a phone) day 1 tablet 24h Active raNITIdine raNITIdine Histamine-2 150 mg Active no no n o 150 mg oral Translation Receptor information information nam e tablet (2 s: [ Zantac Antagonist (no sources.) 150 MG] phone) sodium sodium no 2 02-12-20 Active no no no chloride chloride information spray( 16 information informati on name 0.111 Translation s) (no meq/ml s: [ Saline phone) nasal spray Nasal [place] (2 0.65 %] sources.) Completed/Discontinued Medications Medication Ingredient Drug Dose Dates Status Sig Sig Care Class(es) (Normalized) (Original) Provid er no Ondansetron no 4 mg 04-21-20 no no no no information 4mg oral information 19 - informat information inf ormation name (1 source.) DissolveTab 04-21-20 ion (no (Zofran) 19 phone) Problems Active Problems Problem Normalized Date of Normalized Normalized Provider Fac ility Classification Problem(s) Problem Problem Problem Sta tus Onset/Resoluti Duration on Other Anemia of the Chronic Active JENNIFER POZO Not Available complications puerperium , DO (73830) of ; puerperium affecting management of mother (4 sources.) Other Constipation Episodic Active [facility] gastrointestin Translations: [facility] al disorders [ [place] [address] of [facility] (20 sources.) Constipation, [place] ([address]) unspecified constipation type, Constipation, unspecified constipation type] External cause Contact with Episodic Active ANGELIA REBOLLAR Com munity codes: hypodermic 60116 [facility] Cut/santiago (20 needle, of [facility] sources.) initial [place] (37960) encounter Translations: [ - Needlestick injury due to hypodermic needle W46.0XXA] Other Elevated [facility] Active [facility] circulatory [facility]pressure [facility] (20 reading [place] [address] of [facility] sources.) without [place] ([address]) diagnosis of hypertension Translations: [ Elevated blood pressure reading without diagnosis of hypertension, Elevated blood pressure reading without diagnosis of hypertension] Other Encounter for Episodic Active [facility] ital aftercare (1 removal of [facility] of source.) sutures [facility] (08192) Other Encounter for Episodic Active [facility] Hosp ital aftercare (1 removal of [facility] of source.) sutures [facility] (74106) Residual High risk Episodic Active Doctor Community codes; heterosexual [facility] unclassified behavior of [facility] (20 sources.) Translations: [place] ([address]396) [ - Unprotected sexual intercourse Z72.51] Open wounds of Laceration Episodic Active [facility] spital extremities (8 without [facility] of sources.) foreign body, [facility] ([address]463[facility] initial encounter Translations: [ OPEN WOUND OF FOOT EXCEPT TOE(S) ALONE, WITHOUT MENTION OF COMPLICATION] Other upper Other seasonal Chronic Active FAMILIA Commu nity respiratory allergic [facility] disease (20 rhinitis [place] [address] of [facility] sources.) Translations: [place] ([address]) [ - Other seasonal allergic rhinitis J30.2, - Other seasonal allergic rhinitis J30.2] 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 /social [facility] [facility] admission (20 complaint in of [facility] sources.) whom no [place] ([address]) diagnosis is made Translations: [ - Concern about STD in female without diagnosis Z71.1] Other female Personal Episodic Active FAMILIA M[facility] genital history of [facility] disorders (20 other diseases [place] [address] of [facility] sources.) of the female [place] () genital tract Translations: [ - History of dyspareunia in female Z87.42, - History of dyspareunia in female Z87.42] Sexually Syphilis titer Chronic Active ANGELIA [employer] [facility] ity transmitted test positive [address]689 [facility] infections Translations: of [facility] (not HIV or [ Positive [place] ([address]871) hepatitis) (20 serology for sources.) syphilis, - Positive serology for syphilis A53.0] Other Trichomonal Episodic Active ANGELIA [employer] [facility] infections; [facility]ovaginitis [address] [facility] including Translations: of [facility] parasitic (20 [ - [place] (34052) sources.) Trichomonas vaginitis A59.01] Genitourinary Unspecified Episodic Active [facility] it symptoms and symptoms and [facility] ill-defined signs of [facility] conditions (20 involving the [place] ([address]7530) sources.) genitourinary system Translations: [ - UTI symptoms R39.9] Past or Other Problems Problem Normalized Date of Normalized Normalized Provider Fac ility Classification Problem(s) Problem Problem Problem Sta tus Onset/Resoluti Duration on Acute Acute Episodic Completed JENNIFER POZO Not Avai lable posthemorrhagi posthemorrhagi , DO (68015) c anemia (4 c anemia sources.) External cause Contact with no information no information [employer] [facility] codes: hypodermic [address] [facility] Center Cut/santiago (1 needle, of [facility] source.) initial [place] ([address]) encounter Translations: [ - Needlestick injury due to hypodermic needle W46.0XXA] Other Encounter for no information no information JENNIFER RIBERA Not Available screening for , DO (88865) suspected screening for conditions uncertain (not mental dates disorders or infectious disease) (3 sources.) Unclassified Family history no information Completed JENNIFER RESENDEZ Not Available (8 sources.) of malignant , DO (51756) neoplasm of other genital organs Translations: [ 37 WEEKS GESTATION OF , 20 WEEKS GESTATION OF ] Umbilical cord Labor and Episodic Completed JENNIFER FENECH No t Available complication delivery , DO (91567) (4 sources.) complicated by other cord entanglement, with compression, not applicable or unspecified Unclassified Maternal care no information no information LINDA L FENECH Not Available (4 sources.) for low , DO (29950) transverse scar from previous delivery Unclassified Mild to no information no information JENNIFER FEN ECH Not Available (4 sources.) moderate , DO (01323) pre-eclampsia, complicating childbirth Other Uterine Episodic Completed JENNIFER FENECH Not Avai lable complications size-date , DO (00089) of discrepancy, (1 source.) second trimester Procedures Procedure Normalized Procedure Procedure Result Performer Facility Date 07-18-2014 Antibody hiv-1 no information no name (no phone) [facility] (83200) 07-18-2014 Antibody screen rbc no information no name (no phon e) [facility] each serum technique [facility] (23324) 07-18-2014 Assay of thyroid no information no name (no phone) [facility] stimulating hormone [facility] (47417) 10-29-2017 Billing Notes on claim no information no name (no p casie) [facility] 10-29-2017 [place] (70324) - 10-29-2017 07-18-2014 Blood count complete no information no name (no gely ne) [facility] auto&auto difrntl wbc [facility] (46611) 01-03-2014 Blood count complete no information no name (no gely ne) [facility] auto&auto difrntl wbc [facility] (91871) 07-18-2014 Collection venous no information no name (no phone) [facility] blood venipuncture [facility] (30023) 01-03-2014 Collection venous no information no name (no phone) [facility] blood venipuncture [facility] (97873) 11-15-2013 Collection venous no information no name (no phone) [facility] blood venipuncture [facility] (07526) 01-03-2014 Comprehensive no information no name (no phone) [facility] metabolic panel [facility] (87382) 11-02-2017 Comprehensve oral no information no name (no phone) [facility] Health evaluation [facility] (47390) 01-03-2014 Cul prsmptv pthgnc no information no name (no phone ) [facility] organism scrn w/[facility] estimj [place] (52529) 07-18-2014 Culture bacterial no information no name (no phone) [facility] quanttative [facility] count urine [place] (73465) 10-22-2017 Dental bitewings two no information no name (no gely ne) [facility] films [facility] (42404) EXTRACTION OF POC, LOW no information no name (no phone) Not Available (46373) CERVICAL, OPEN AP 11-30-2013 biophysical no information no name (no phone) [facility] profile non-stress [facility] testing [place] (82627) 01-23-2014 nonstress test no information no name (no gely ne) [facility] (23989) 10-29-2017 Full mouth debridement no information no name (no p casie) [facility] 10-29-2017 [place] (31390) - 10-29-2017 11-15-2013 Glucose post glucose no information no name (no gely ne) [facility] dose [facility] (19075) 07-18-2014 Iaad ia hepatitis b no information no name (no phon e) [facility] surface antigen [facility] (50667) 10-22-2017 Intraoral periapical no information no name (no gely ne) [facility] ea add [facility] (01456) 10-22-2017 Intraoral periapical no information no name (no gely ne) [facility] first f [facility] (56914) 02-23-2018 LAB NOT BILLED BY no information no name (no phone) [facility] (17397) 01-03-2014 Lactate dehydrogenase no information no name (no ph one) [facility] ldh [facility] (30797) 10-22-2017 Limit oral eval problm no information no name (no p casie) [facility] focus [facility] (09595) 10-29-2017 Oral hygiene no information no name (no phone) [facility] 10-29-2017 [place] (40898) - 10-29-2017 RESECTION OF BILATERAL no information no name (no phone) Not Available (88961) FALLOPIAN TUBES, 07-18-2014 Syphilis test no information no name (no phone) [facility] antibody qual [place] (14385) 10-29-2017 Topical fluoride no information no name (no phone) [facility] - varnish [facility] 10-29-2017 [place] (23782) - 10-29-2017 02-23-2018 Urine test no information no name (no gely ne) [facility] visual color cmprsn [facility] (81785) 06-19-2014 Urine test no information no name (no gely ne) [facility] visual color cmprsn [facility] (86068) 02-23-2018 Urnls dip stick/tablet no information no name (no p casie) [facility] rgnt auto w/o Center [facility] (75429) 07-18-2014 Urnls dip stick/tablet no information no name (no p casie) [facility] rgnt auto w/o Center [facility] (90024) 01-23-2014 Urnls dip stick/tablet no information no name (no p casie) [facility] rgnt non-auto w/o [facility] (08901) 01-17-2014 Urnls dip stick/tablet no information no name (no p casie) [facility] Health rgnt non-auto w/o Center [facility] (12161) 01-09-2014 Urnls dip stick/tablet no information no name (no p casie) [facility] rgnt non-auto w/o Center [facility] (98229) 01-03-2014 Urnls dip stick/tablet no information no name (no p casie) [facility] rgnt non-auto w/o Center [facility] (14912) 12-20-2013 Urnls dip stick/tablet no information no name (no p casie) [facility] rgnt non-auto w/o [facility] (34792) 11-30-2013 Urnls dip stick/tablet no information no name (no p casie) [facility] rgnt non-auto w/o [facility] (07488) 11-15-2013 Urnls dip stick/tablet no information no name (no p casie) [facility] rgnt non-auto w/o [facility] (57637) 10-18-2013 Urnls dip stick/tablet no information no name (no p casie) [facility] rgnt non-auto w/o [facility] (66305) 11-29-2013 Us preg uterus real no information no name (no phon e) [facility] time f/u trnsabdl per [facility] (08404) 07-18-2014 Us uterus 14 no information no name (no ph one) [facility] wk transabdl 08/24 [facility] (02600) 12-20-2013 Us uterus no information no name (no phone ) [facility] limited fetuses [facility] (94932) Immunizations The data below is from unstructured sources No Known Immunizations No Known Immunizations No Known Immunizations No Known Immunizations No Known Immunizations No Known Immunizations No Known Immunizations No Known Immunizations No Known Immunizations No Known Immunizations No Known Immunizations No Known Immunizations No Known Immunizations No Known Immunizations No Known Immunizations No Known Immunizations No Known Immunizations No Known Immunizations No Known Immunizations No Known Immunizations No Known Immunizations No Known Immunizations No Known Immunizations No Known Immunizations No Known Immunizations No Known Immunizations No Known Immunizations No Known Immunizations No Known Immunizations No Known Immunizations No Known Immunizations No Known Immunizations No Known Immunizations No Known Immunizations No Known Immunizations No Known Immunizations No Known Immunizations No Known Immunizations No Known Immunizations No Known Immunizations No Known Immunizations No Known Immunizations No Known Immunizations No Known Immunizations No Known Immunizations No Known Immunizations No Known Immunizations No Known Immunizations No Known Immunizations No Known Immunizations No Known Immunizations No Known Immunizations No Known Immunizations No Known Immunizations No Known Immunizations No Known Immunizations No Known Immunizations No Known Immunizations No Known Immunizations No Known Immunizations No Known Immunizations No Known Immunizations No Known Immunizations No Known Immunizations No Known Immunizations No Known Immunizations No Known Immunizations No Known Immunizations No Known Immunizations No Known Immunizations No Known Immunizations Results Test Name Value Interpretation Reference Range Date Time Fa cility (Normalized) (Normalized) (Medline Reference) No panel information on null BLO 1+ (no code) [facility] (99540) Exp date 06/2019 (no code) [facility] (74899) KET 2019-04~clear~ye (no code) [facility]none~negati [facility] ve~negative~nega [facility] tive (73235) CALIN no information (no code) [facility] (43227) Lot # [id number] (no code) [facility] (62360) Lot # [id number] (no code) [facility] (83083) pH (Bld) 6.5 [pH] (no code) 7.38 - 7.42 [pH] [facility] (74510) Protein (U) 1+ (no code) [facility] [Mass/Vol] [facility] (20989) SG 1.025 (no code) [facility] (29690) URO 0.2 (no code) [facility] (01183) No panel information on 2019-08-11 Exp date no information (no code) [facility] (51629) No panel information on 2019-05-12 Bacteria SEE NOTE (no code) [facility] identified [facility] Nom (Genital [facility] specimen) (01278) Control no information (no code) [facility] (68937) Exp date 01/10 (no code) [facility] (81977) HSV 1 IgG IA Qn 54.90 (H) [facility] (S) [facility] (95814) HSV 2 IgG IA Qn 6.06 (H) [facility] (S) [facility] (55953) Lot # [id number] (no code) [facility] (54500) No panel information on 2019-01-13 HSV 1 IgG IA Qn 50.70 (H) 01-13-2019 [facility] (0 0000) (S) 02:59-0400 HSV 2 IgG IA Qn 5.65 (H) 01-13-2019 [facility] (0 0000) (S) 02:59-0400 No panel information on 2019-01-10 Bacteria SEE NOTE (A) [facility] identified Cx [facility] (U) [facility] (15740) No panel information on 2018-02-23 Bacteria SEE NOTE (A) no information identified Cx Nom (U) BLO trace-intact (no code) Not Available (95526) Exp date no information (no code) Not Available (44619) KET 07/23/18~cloudy~ (no code) Not Available yellow~foul~neg~ (19817) neg~neg CALIN pos~2+ (no code) Not Available (16541) Lot # [id number] (no code) Not Available (31657) pH (Bld) 7.0 [pH] (no code) 7.38 - 7.42 [pH] Not Avai lable (45179) Protein mass no information (no code) 0 - 20 mg/dL Not Avai lable conc (U) (04454) SG 1.020 (no code) Not Available (05051) URO 1.0 (no code) Not Available (84116) Vital Signs Vital Sign Value Interpretation Reference Date Time Care Prov ider Facility (Normalized) (Normalized) Range BMI (Body Mass 28.66 kg/m2 (no code) 15 - 25 kg/m2 02-23-2018 [facility] Community Index) 09:40-0400 [place] [id number] [place] [address] (37831) Body height 160.02 cm (no code) cm 01-09-2014 [facility] 13:16-[address] [place] [address] (96138) Body height 160.02 cm (no code) cm 01-03-2014 [employer] [facility] 16:43-0400 46512 [facility] (53957) Body height 160.02 cm (no code) cm 12-20-2013 ANGELIA REBOLLAR Community 17:32-0400 87704 [facility] (54631) Body height 160.02 cm (no code) cm 11-30-2013 WILMAN YANETH H [facility] 12:29-0400 42166 [facility] (99304) Body height 160.02 cm (no code) cm 11-15-2013 WILMAN YANETH [facility] 15:15-0400 87261 [facility] (77331) Body height 160.02 cm (no code) cm 10-18-2013 WILMAN YANETH [facility] 15:23-0500 58833 [facility] (36200) Body 97.4 [degF] (no code) 97.8 - 99.0 02-23-2018 [facility] Temperature [degF] 09:40-0400 [facility] [address] [facility] (93154) Body 98.7 [degF] (no code) 97.8 - 99.0 07-18-2014 [facility] Temperature [degF] 14:28-0500 34623 [facility] (78205) Body 97.6 [degF] (no code) 97.8 - 99.0 03-15-2014 [facility] Temperature [degF] 18:52-0400 56673 [facility] (22947) Body 98.7 [degF] (no code) 97.8 - 99.0 01-17-2014 ANGELIA REBOLLAR [facility] Temperature [degF] 16:58-0400 25952 [facility] (44072) Body 97.6 [degF] (no code) 97.8 - 99.0 01-09-2014 ANGELIA REBOLLAR [facility] temperature [degF] 13:16-0400 55584 [facility] (49812) Body 97.4 [degF] (no code) 97.8 - 99.0 01-03-2014 ANGELIA REBOLLAR [facility] temperature [degF] 16:43-0400 21621 [facility] (29158) Body 97 [degF] (no code) 97.8 - 99.0 12-20-2013 ANGELIA REBOLLAR [facility] temperature [degF] 17:32-0400 91908 [facility] (92101) Body 97.2 [degF] (no code) 97.8 - 99.0 10-18-2013 [facility] temperature [degF] 15:23-0500 48131 [facility] (82119) Body weight 76.2 kg (no code) kg [facility]2014 [facility] 14:28-0500 [id number] [facility] ([id number]) Body weight 75.8 kg (no code) kg 03-15-2014 [facility] 18:52-0400 [id number] [facility] ([id number]) Body weight 88.48 kg (no code) kg 01-23-2014 [facility] 11:38-0400 [id number] [facility] ([id number]) Body weight 87.86 kg (no code) kg 01-17-2014 [facility] 16:58-0400 [id number] [facility] ([id number]) Body weight 87.23 kg (no code) kg 01-09-2014 [facility] 13:16-0400 13343 [facility] ([id number]) Body weight 87.32 kg (no code) kg 01-03-2014 [facility] 16:43-0400 37676 [facility] ([id number]) Body weight 84.37 kg (no code) kg 12-20-2013 [facility] 17:32-0400 17452 [facility] ([id number]) Body weight 82.75 kg (no code) kg 11-30-2013 [facility] 12:29-0400 10461 [facility] ([id number]) Body weight 82.74 kg (no code) kg 11-15-2013 [facility] 15:15-0400 15620 [facility] ([id number]) Body weight 78.19 kg (no code) kg 10-18-2013 [facility] 15:23-0500 [id number] [facility] ([id number]) Height 160.02 cm (no code) cm 02-23-2018 [facility] 09:40-0400 [facility] [id number] [place] [address] ([id number]) Height 160.02 cm (no code) cm 11-03-2017 SHABNAM [facility]ston[facility] nity 14:00-[address] [facility] [id number] [place] [address] ([id number]) Height 160.02 cm (no code) cm 07-18-[address] [facility] 14:28-0500 [id number] [facility] ([id number]) Height 160.02 cm (no code) cm 03-15-[address] [facility] 18:52-[id number] [place] [address] ([id number]) Height 160.02 cm (no code) cm 01-23-2014 [facility] 11:38-[id number] [place] [address] ([id number]) Height 160.02 cm (no code) cm 01-17-2014 [facility] 16:58-[id number] [place] [address] ([id number]) Weight 73.39 kg (no code) kg 02-23-2018 [facility] Commun ity 09:40-[address] ([id number]) Interventions No Information Plan of Treatment The data below is from unstructured sources Discharge Date 10/08/15 4:43am Disposition 01 HOME, SELF-CARE Condition at Discharge Improved Instructions/Education Provided Acut e Nausea and Vomiting (ED) Acute Abdominal Pain (ED) Prescriptions See Medication Section [facility]errals [facility] Additional Instructions/Education Al l discharge instructions reviewed with patient and/or family. Voiced understanding. Clear liquid diet for 24 hours and then advance as tolerated. You may take Pepcid, or the generic famotidine, 20 mg once or twice daily as needed for stomach upset. You may get this [id number]. Follow-up with your Dr. in a few days for recheck. Return for worsening, fever, vomiting, weakness, breathing problems or other concerns as needed. Take medications as directed. Discharge Date 06/30/15 6:05pm Disposition 01 HOME, SELF-CARE Condition at Discharge Unchanged Instructions/Education Provided NO I NSTRUCTIONS GIVEN Urinary Tract Infection in Women (ED) Prescriptions See Medication Section [facility]errals [facility] Primary [facility] Physician Additional Instructions/Education I asked patient follow-up with her caregiver Ty Orozco next week. She was invited return to emergency department if any problems or questions. She was given instructions from up-to-date on brief R menorrhea. All discharge instructions reviewed with patient and/or family. Voiced understanding. Discharge Date 09/06/15 9:56pm Disposition 01 HOME, SELF-CARE Condition at Discharge Improved Instructions/Education Provided Urin amy Tract Infection in Women (ED) Prescriptions See Medication Section [facility]errals [facility] Primary Care Physician Additional Instructions/Education LO TS OF CLEAR LIQUIDS--NO COFFEE, POP OR TEA FOLLOW UP WITH YOUR DR IN 2-3 DAYS IF NO IMPROVEMENT RETURN TO ER IF WORSE All discharge instructions reviewed with patient and/or family. Voiced understanding. Discharge Date 01/26/15 1:12pm Disposition 30 STILL A PATIENT Instructions/Education Provided POST DISCHARGE SECTION DISCHARGE Forms Provided PDI Prescriptions See Medications Sectio n Follow-up Orders OB Late Additional Fetus-US Biophysical Profile Referrals (Unspecified) Reason(s) for Referral: DR. POZO [phone] [facility] January AT 10:[address] POZO February AT 11:00 A.M. Discharge Date 12/09/14 7:46am Disposition 01 HOME, SELF-CARE Instructions/Education Provided OB O UTPATIENT DISCHARGE Forms Provided PDI Women Services/OP Prescriptions See Medications Sectio n Follow-up Orders OB Late Additional Fetus-US Additional Instructions/Education Re turn here for 2nd Betamethasone shot @ 6pm Discharge Date 12/09/14 7:46am Instructions/Education Provided OB O UTPATIENT DISCHARGE Prescriptions See Medications Sectio n Follow-up Orders OB Late Additional Fetus-US Discharge Date 11/05/17 12:25pm Disposition 01 HOME, SELF-CARE Instructions/Education Provided POST DISCHARGE SECTION DISCHARGE Forms Provided PDI Prescriptions See Medication Section Activity Details Follow Up prn Reason:GURINDER/Restorative Activity Details Follow Up prn Reason:#18-O&R Activity Details Follow Up prn Reason:fillings/new bi tewings/ patient will call Activity Details Follow Up if not improving or regula r follow up with pcp Reason: Goals No Information Social History The data below is from unstructured sources History Response Recorde d Date/Time Hx Family Cancer N 04/19 10:55pm Hx Family Cardiac Disorders N 04/19/13 10:55pm History Response Recorde d Date/Time Alcohol Use Denies Use 0 04/19/13 10:55pm Recreational Drug Use N 04/19/13 10:55pm Functional Status The data below is from unstructured sources Query Response Date James rded Comprehension Ability Understands Co ncepts January 25, 2015 9:00am Mental Status No Information Encounters Encounter Normalized Encounter Encounter Diagnosis Care Provi christiano Organization Date Type 02-23-2018 (ACUTE) Acute Visit Acute cystitis without [facility] (no - hematuria [facility] (no phone) phone) 02-23-2018 - 02-23-2018 01-07-2019 (WALK-IN) Walk-In Care Unspecified symptoms P ATRICIA NISHANT (no [facility] - and signs involving phone) CARE (no p casie) 01-07-2019 the genitourinary - system 01-07-2019 08-11-2019 [facility] Acute pharyngitis, HARRIS DUCKWORTH (no [facility] - CARE unspecified phone) CARE (no phone ) 08-11-2019 - 08-11-2019 06-17-2019 [facility] Latent syphilis, SIA Albert (no [facility] - unspecified as early phone) (no phone ) 06-17-2019 or late - 06-17-2019 05-12-2019 [facility] Person with feared SIA BARKLEY (no [facility] - health complaint in phone) (no phone) 05-12-2019 whom no diagnosis is - made 05-12-2019 02-23-2018 Patient encounter no information no name (no phone) no organization name (no phone) 11-04-2017 Patient encounter no information no name (no phone) no organization name - (no phone) 11-05-2017 11-03-2017 Patient encounter no information no name (no phone) no organization name (no phone) 11-02-2017 Patient encounter no information no name (no phone) no organization name (no phone) 10-29-2017 Patient encounter no information no name (no phone) no organization name (no phone) 07-07-2017 Patient encounter no information no name (no phone) no organization name (no phone) 08-11-2019 Patient encounter no information no name (no phone) no organization name procedure (no phone) 05-12-2019 Patient encounter no information no name (no phone) no organization name procedure (no phone) 04-30-2019 Patient encounter no information no name (no phone) no organization name - procedure (no phone) 04-30-2019 04-30-2019 Patient encounter no information no name (no phone) no organization name - procedure (no phone) 04-30-2019 04-28-2019 Patient encounter no information no name (no phone) no organization name - procedure (no phone) 04-28-2019 04-21-2019 Patient encounter no information no name (no phone) no organization name - procedure (no phone) 04-21-2019 01-11-2019 Patient encounter no information no name (no phone) no organization name - procedure (no phone) 01-11-2019 01-07-2019 Patient encounter no information no name (no phone) no organization name procedure (no phone) 06-17-2019 Telephone encounter no information SIA VALENZUELA (n o [facility] - phone) (no phone) 06-17-2019 - 06-17-2019 05-19-2019 Telephone encounter no information SIA VALENZUELA (n o [facility] - phone) (no phone) 05-19-2019 - 05-19-2019 no information Encounter for dental no name (no phone) no or ganization name examination and (no phone) cleaning without abnormal findings no information Dental examination no name (no phone) no orga nization name (no phone) Medical Equipment No Information Payers Normalized Payer Value Self-pay no information Medicaid no information History general Narrative - Reported Note Type Note Facility History general Narrative - Reported Type Medical anxiety History Medical Supervision of normal first History Medical Unspecified chlamydial infe ction, in conditions classified elsewhere and of History unspecified site Medical Decreased movements, affecting management of mother, antepartum condition History or complication Medical Threatened premature labor, unspecified as to episode of care History Medical Unspecified hypertension co mplicating , childbirth, or the puerperium, History unspecified as to episode o f care Medical Unspecified high-risk pregn darvin History Medical DTAP TEST History Surgical section 01/2015 History Surgical appendectomy 03/2013 History Surgical wisdom teeth extraction History Surgical 06/2016 History Surgical 10/2017 History Surgical tubal ligation or removal of tubes History Hospitaliz surgeries, childbirth ation History [facility] ([id number]) Summary Purpose eClinicalWorks SubmissioneClinicalWorks SubmissioneClinicalWorks SubmissioneClinicalWorks SubmissioneClinicalWorks SubmissioneClinicalWorks SubmissioneClinicalWorks Submission Advance Directives Directive Response Recor ded Date/Time Advance Directives No 4:01am Health Care Power of Healthcare Receptionist No 10/08/15 4:01am Organ Donor Yes 10/08/15 4:01am Resuscitation Status Full Code 10/08/15 4:01am Directive Response Recor ded Date/Time Advance Directives No 4:28pm Health Care Power of Healthcare Receptionist No 06/30/15 4:28pm Organ Donor Yes 06/30/15 4:28pm Resuscitation Status Full Code 06/30/15 4:28pm Directive Response Recor ded Date/Time Advance Directives No 7:30pm Health Care Power of Healthcare Receptionist No 09/06/15 7:30pm Organ Donor Yes 09/06/15 7:30pm Resuscitation Status Full Code 09/06/15 7:30pm Directive Response Recor ded Date/Time Advance Directives No 8:22am Health Care Power of Healthcare Receptionist No 01/12/15 8:22am Organ Donor Yes 01/12/15 8:22am Directive Response Recor ded Date/Time Advance Directives No 10:46pm Health Care Power of Healthcare Receptionist No 01/24/15 10:46pm Organ Donor Yes 01/24/15 10:46pm Resuscitation Status Full Code 01/24/15 10:46pm Directive Response Recor ded Date/Time Advance Directives No 5:35pm Health Care Power of Healthcare Receptionist No 12/08/14 5:35pm Organ Donor Yes 12/08/14 5:35pm Resuscitation Status Full Code 12/08/14 5:35pm Directive Response Recor ded Date/Time Advance Directives No 5:35pm Health Care Power of Healthcare Receptionist No 12/08/14 5:35pm Organ Donor Yes 12/08/14 5:35pm Directive Response Recor ded Date/Time Advance Directives No 10:18pm Health Care Power of Healthcare Receptionist No 11/25/14 10:18pm Organ Donor Yes 11/25/14 10:18pm Resuscitation Status Full Code 11/25/14 10:18pm Directive Response Recor ded Date Advance Directives N 10:55pm Directive Response Recor ded Date/Time Advance Directives No 8:22am Health Care Power of Healthcare Receptionist No 01/12/15 8:22am Organ Donor Yes 01/12/15 8:22am Resuscitation Status Full Code 01/12/15 8:22am Directive Response Recor ded Date/Time Advance Directives No 12:57pm Health Care Power of Healthcare Receptionist No 12/20/14 12:57pm Organ Donor Yes 12/20/14 12:57pm Resuscitation Status Full Code 12/20/14 12:57pm Directive Response Recor ded Date/Time Advance Directives No 10:34am Health Care Power of Healthcare Receptionist No 01/09/15 10:34am Organ Donor Yes 01/09/15 10:34am Resuscitation Status Full Code 01/09/15 10:34am Directive Response Recor ded Date/Time Advance Directives No 8:44am Health Care Power of Healthcare Receptionist No 12/21/14 8:44am Organ Donor Yes 12/21/14 8:44am Resuscitation Status Full Code 12/21/14 8:44am Directive Response Recor ded Date/Time Advance Directives No 11:41am Health Care Power of Healthcare Receptionist No 11/04/17 11:41am Organ Donor Yes 11/04/17 11:41am Resuscitation Status Full Code 11/04/17 11:41am Discharge Instructions No hospital discharge instructions.No hospital discharge instructions.No hospital discharge instructions.No hospital discharge instructions.No hospital discharge instructions. Patient Instructions Physician Instructions New, Converted or Re-Newed RX: RX on Chart Additional Follow Up: Yes Orders/Referrals Dr. Pozo/ Autumn Ballard in 7-10 days for PO, and [address] Pozo for Activity: Activity as Tolerated Driving Instructions: No Driving for 1 Week NO SMOKING: NO SMOKING Nothing Inside Vagina: No Douching, No Rudyard, No Tampons Discharge Diet: No Restrictions Symptoms to Report to : Bleeding Excessive, Pain Increased, Fever Over 101 Degrees F, Vaginal Bleeding Increase, Questions/Concerns For Any Problems or Questions: Contact Your Physician Infection Signs and Symptoms: Increased Redness, Foul Odor of Wound, Increased Drainage, Skin Itchy or Has a Rash, Increased Swelling, Temperature Above 101 F Operative Area Clean and Dry: Keep Incision Clean/Dry Stitches/[place]/Dermabond: Dermabond, Care of Stitches Bathing Instructions: Shower No hospital discharge instructions.No hospital discharge instructions.No hospital discharge instructions.No hospital discharge instructions.No hospital discharge instructions.No hospital discharge instructions.No hospital discharge instructions.No hospital discharge instructions.No hospital discharge instruction information available. Additional Source Comments This clinical document has been generated using [employer] software that has been certified by the Office of the National Coordinator for Health Information Technology (ONC 15.99.04.3023.Diam.[id number]) and the National Committee for [employer] (NCQA, as an eMeasure certified technology). FOR RECORDS PERTAINING TO PATIENTS WHO ARE OR HAVE BEEN ENROLLED IN A CHEMICAL D EPENDENCY/SUBSTANCE ABUSE PROGRAM, SOME INFORMATION MAY BE OMITTED. This clinica l summary was aggregated from multiple sources. Caution should be exercised in using it in the provision of clinical care. This summary normalizes information from multiple sources, and as a consequence, information in this document may ma terially change the coding, format and clinical context of patient data. In tre tion, data may be omitted in some cases. CLINICAL DECISIONS SHOULD BE BASED ON T HE PRIMARY CLINICAL RECORDS. [employer] provides no warranty or guara ntee of the accuracy or completeness of information in this document.The followi ng information is based on time limited clinical information UNRECOGNIZED CONTENT PROVIDED BELOW FOR UNRECOGNIZED SECTION MEDICAL (GENERAL) HISTORY Type Description Date Medical History anxiety Medical History Supervision of bee l first Medical History Unspecified chlamydi al infection, in conditions classified elsewhere and of unspecified site Medical History Decreased move ments, affecting management of mother, antepartum condition or complication Medical History Threatened premature labor, unspecified as to episode of care Medical History Unspecified hyperten alivia complicating , childbirth, or the puerperium, unspecified as to episode of care Medical History Unspecified high-ris k Medical History DTAP TEST Surgical History section 01/2015 Surgical History appendectomy 03/2013 Surgical History wisdom teeth extraction Hospitalization History surgeries, c hildbirth Type Description Date Medical History anxiety Medical History Supervision of bee l first Medical History Unspecified chlamydi al infection, in conditions classified elsewhere and of unspecified site Medical History Decreased move ments, affecting management of mother, antepartum condition or complication Medical History Threatened premature labor, unspecified as to episode of care Medical History Unspecified hyperten alivia complicating , childbirth, or the puerperium, unspecified as to episode of care Medical History Unspecified high-ris k Medical History DTAP TEST Surgical History section 01/2015 Surgical History appendectomy 03/2013 Surgical History wisdom teeth extraction Surgical History 06/2016 Surgical History 10/2017 Hospitalization History surgeries, c hildbirth Type Description Date Medical History anxiety Medical History Supervision of bee l first Medical History Unspecified chlamydi al infection, in conditions classified elsewhere and of unspecified site Medical History Decreased move ments, affecting management of mother, antepartum condition or complication Medical History Threatened premature labor, unspecified as to episode of care Medical History Unspecified hyperten alivia complicating , childbirth, or the puerperium, unspecified as to episode of care Medical History Unspecified high-ris k Medical History DTAP TEST Surgical History section 01/2015 Surgical History appendectomy 03/2013 Surgical History wisdom teeth extraction Surgical History 06/2016 Surgical History 10/2017 Surgical History tubal ligation or r emoval of tubes 11/08 Hospitalization History surgeries, c hildbirth UNRECOGNIZED CONTENT PROVIDED BELOW FOR UNRECOGNIZED SECTION REASON FOR VISIT UTI symptoms, frequent urination , pelvic pain both for 3 days---[id number]
--- OUTSIDE RECORDS SUMMARY | 2019-11-24 00:46 | XMS REPORT ---
Author Author Vilma PEÑALOZA Organization [facility] Address [address] [place] [address] Care Team Providers Care Farm Loan Representative Name Role Phone WILMAN PEÑALOZA Unavailable PROBLEMS Type Condition ICD9-CM Code DMT65-SI Code Onset Dates Condition S tatus SNOMED Code Problem Elevated blood pressure reading without diagnosi s of hypertension 796.2 Active 860545168 Problem Irregular menstrual cycle N92.6 Acti ve 75295587 Problem Lower abdominal pain R10.30 Active 96129110 Problem Chronic gingivitis, plaque induced K05.10 Active 11760843 Problem Positive serology for syphilis A53.0 Active 093463698 Problem Constipation, unspecified constipation type K59.00 Active 85916922 Problem Fatigue, unspecified type R53.83 Acti ve 75910621 Problem Anxiety F41.9 Active 14969173 Problem Tobacco abuse Z72.0 Active 657796 05 ALLERGIES No Information ENCOUNTERS Encounter Location Date Diagnosis [facility] [address] [facility] [id number] [address] [place] [address] Jul, Pharyngitis J02.9 [facility] [id number] [place] [address] May, Positive serology for syphilis A53.0 [facility] [id number] [place] [address] May, [facility] [id number] [place] [address] Apr, [place] [address] [address] Apr, Concern about STD in female without diag nosis Z71.1 ; Needlestick injury due to hypodermic needle W46.0XXA ; Candidal vaginitis B37.3 and Trichomonas vaginitis A59.01 [facility] [address] [facility] [id number] [address] [place] [address] December, UTI symptoms R39.9 and Acute cystitis with hematuria N30.[address] [id number] Feb, Acute cystitis without hematuria N30.[address] [id number] Oct, [facility] [address] [id number] [place] [address] Oct, Dental examination Z01.20 [facility] [id number] [place] [address] Oct, Dental examination Z01.20 and Chronic gi ngivitis, plaque induced K05.10 [facility] [id number] [place] [address] Oct, Dental examination Z01.[address] [id number] Jun, [address] [id number] May, [address] [id number] May, [address] [id number] Apr, [address] [id number] Apr, [address] [id number] Feb, Encounter for test, result unknown Z32.[address] [id number] Feb, [address] [id number] Feb, [address] [id number] Feb, Encounter for test, result unknown Z32.00 [address] [place] [id number] Jan, [facility] [place] [address] [id number] [place] [address] Jan, [facility] [place] [address] [id number] [place] [address]528 Jan, [facility] [place] [address] [id number] [place] [address] December, [facility] [place] [address] [id number] [place] [address] December, [facility] [place] [address] [id number] [place] [address] Nov, [facility] [place] [address] [id number] [place] 717[address]878 Nov, [facility] [place] [address] [id number] [place] [address]5929 Nov, [facility] [place] [address] [id number] [place] [address]25[address]406 Oct, [facility] [place] [address] [id number] [place] [address]2167 Oct, [facility] [place] [address] [id number] [place] [id number] Oct, [facility] [place] [address] [id number] [place] [address]67346551 Oct, [facility] [place] [address] [id number] [place] 88[address] Sep, [facility] [place] [address] [id number] [place] 9838[address]370 Sep, [facility] [place] [address] [id number] [place] 677687487 Sep, [facility] [place] [address] [id number] [place] 220000012 Sep, [facility] [place] [address] [id number] [place] 017999503 Sep, [facility] [place] [address] [id number] [place] 44[address] Aug, [facility] [place] [address] [id number] [place] [id number] Jul, [facility] [place] [address] [id number] [place] [address] Jul, [facility] [place] [address], [place] [address] Jun, [facility] [place] [address], [place] [address]238[address] Jun, [facility] [place] [address], [place] [address]10 Jun, [facility] [place] [address], [place] 954207661 Jun, [facility] [place] [address], [place] [id number] Jun, [facility] [place] [address], [place] 66[address]1777 Jun, [facility] [place] [address], [place] [address] May, [facility] [place] [address], [place] [address] May, [facility] [place] [address], [place] [id number] May, [facility] [address] [facility] [place] [address] Apr, Bronchitis J40 [facility] [place] [address] [id number] Mar, [facility] [place] [address] [id number] Feb, [facility] [place] [address] [id number] Feb, [facility] [place] [address] [id number] Feb, Sore throat J02.9 and Ear pain, right H92.01 [facility] [place] [address] [id number] Jan, [facility] [place] [address] [id number] Jan, Viral syndrome B34.9 ; Other seasonal allergic rhinitis J30.2 and Post-nasal drip R09.82 [facility] [place] [address] [id number] Jan, [place] [id number] [place] [id number] Nov, [address] [id number] Oct, test positive Z32.01 [place] [address] [address] Oct, [place] [address] [address] Oct, [place] [address] [address] Sep, Kidney stones N20.0 [place] [address] [address] 18 Sep, 2015 [place] [address] [address] Sep, Pelvic pain R10.2 ; Left lower quadrant pain R10.32 ; Vaginal discharge N89.8 ; Routine screening for STI (sexually transmitted infection) Z11.3 ; Unprotected sexual intercourse Z72.51 ; Kidney stone N20.0 ; History of dyspareunia in female Z87.42 and Screening for malignant neoplasm of cervix Z12.4 [place] [address] [address] 12 Jun, 2015 Constipation, unspecified constipation t ype K59.00 ; Lower abdominal pain R10.30 ; Irregular menstrual cycle N92.6 ; Anxiety F41.9 ; Fatigue, unspecified type R53.83 and Tobacco abuse Z72.[address] [id number] Jun, [address] [id number] Jun, Nausea R11.[address] [id number] May, Alopecia L65.[address] [id number] May, [facility] [place] [address] [id number] [place] [id number] Apr, [facility] [place] [address] [id number] [place] [id number] Mar, [facility] [place] [id number] [place] [address], [place] [id number] Mar, [facility] [place] [address] [id number] [place] [id number] Mar, [facility] [address] [id number] [place] [address] Mar, test negative V72.41 [facility] [place] [id number] [place] [address], [place] [address]35[address]85[address] Mar, [facility] [place] [id number] [place] [address], [place] [id number] Mar, [facility] [place] [id number] [place] [address], [place] [id number] Feb, [facility] [place] [id number] [place] [address], [place] 815003340 Feb, [facility] [place] [id number] [place] [address], [place] 542258427 Feb, [facility] [place] [id number] [place] [address], [place] [id number] Feb, [facility] [place] [id number] [place] [address], [place] [id number] Feb, [facility] [place] [id number] [place] [address], [place] [id number] Feb, [facility] [place] [address], [place] [id number] Feb, [facility] [place] [id number] [place] [address], [place] [id number] Feb, [facility] [place] [id number] [place] [address], [place] [id number] Feb, [facility] [place] [id number] [place] [address], [place] [id number] Feb, [facility] [place] [id number] [place] [address], [place] 769327434 Feb, [facility] [place] [id number] [place] [address], [place] [id number] Feb, [facility] [place] [address] [id number] [place] [id number] Jan, [facility] [place] [address] [id number] [place] 095370927 Jan, [facility] [place] [address] [place] [id number] [place] [id number] Jan, [facility] [address] [facility] [address] [id number] [facility] [place] [id number] Jan, Dental examination V72.2 [facility] [place] [address] [id number] [place] [address], [place] [id number] Jan, [facility] [place] [address] [id number] [place] [address], [place] 039293714 Jan, [facility] [place] [address] [id number] 694508215 Jan, [facility] [place] [address] [place] [place] [id number] [place] [address], [place] [id number] Jan, [facility] [place] [address], [place] [id number] Jan, [facility] [place] [address] [id number] [place] [address], [place] [id number] 15 Jan, 2015 [facility] [place] [address] [id number] [place] [address], [place] [id number] 14 Jan, 2015 [facility] [place] [address] [id number] [place] [address], [place] [id number] Jan, [facility] [place] [address] [place] [place] [id number] [place] [address], [place] [id number] Jan, [facility] [place] [address] [id number] [place] [address], [place] [id number] Jan, [facility] [place] [address] [id number] [place] [address], [place] [id number] Jan, [facility] [place] [address] [id number] [place] [address], [place] [id number] Jan, [facility] [place] [address] [place] [place] [id number] [place] [address], [place] [id number] Jan, [facility] [place] [address] [id number] [place] [address], [place] [id number] Jan, [facility] [place] [address], [place] [id number] Jan, 2014 [facility] [place] [address] [id number] [place] 076254654 Jan, [facility] [place] [address] [id number] [place] 954102322 Jan, 2014 [facility] [place] [address] [id number] [place] [id number] Jan, 2014 [facility] [place] [address] [id number] [place] [id number] Jan, 2014 [facility] [place] [address] [id number] [place] [id number] Jan, 2014 [facility] [place] [address] [id number] [place] 908096992 Jan, [facility] [place] [address] [id number] [place] 096164034 Jan, [facility] [place] [address] [id number] [place] 703608660 Jan, [facility] [place] [address] [id number] [place] 047180878 Jan, [facility] [place] [address] [id number] [place] [id number] December, [facility] [place] [address] [id number] [place] 647877009 December, [facility] [place] [address] [id number] [place] 588283598 December, [facility] [place] [address] [id number] [place] 123627555 December, [facility] [place] [address] [id number] [place] [id number] December, [facility] [place] [address] [id number] [place] 495792777 December, [facility] [place] [address] [id number] [place] 807192179 December, [facility] [place] [address] [id number] [place] 445927880 December, [facility] [place] [address] [id number] [place] 099609528 December, [facility] [place] [address] [id number] [place] [id number] December, [facility] [place] [address] [id number] [place] [place] 107062886 December, [facility] [place] [address] [id number] [place] 570082871 December, [facility] [place] [address] [id number] [place] [id number] December, [facility] [place] [address] [facility] [place] 404692592 December, [facility] [place] [address] [id number] [id number] Nov, [facility] [place] [address] [id number] [id number] Nov, [facility] [place] [address] [facility] [place] [id number] Nov, [facility] [place] [address] [facility] [place] [id number] Nov, [facility] [id number] [place] [address] Nov, [facility] [id number] [place] [address] Nov, [facility] [address] [address] Sep, [facility] [id number] [place] [address] Sep, [facility] [id number] [place] [address] Jul, [facility] [id number] [place] [address] Jul, [facility] [address] [address] Jul, [facility] [id number] [place] [address] Jul, [facility] [id number] [place] [address] Jul, [facility] [id number] [place] [address] Jul, [facility] [address] [facility] [id number] [place] [address] Jun, [facility] [address] [id number] [place] [address] Jun, [facility] [address] [id number] [place] [address] Jun, [facility] [address] [id number] [place] [address] Jun, [facility] [address] [id number] [place] [address] May, [facility] [address] [id number] [place] [address] May, [facility] [address] [id number] [place] [address] Feb, [facility] [address] [id number] [place] [address] Feb, [facility] [address] [id number] [place] [address] Feb, [facility] [address] [id number] [place] [address] Feb, [facility] [address] [id number] [place] [address] Jan, [facility] [address] [id number] [place] [address] Jan, [facility] [address] [id number] [place] [address] Jan, [facility] [address] [id number] [place] [address] Jan, [facility] [address] [id number] [place] [address] December, [facility] [address] [id number] [place] [address] December, [facility] [address] [id number] [place] [address] December, [facility] [address] [id number] [place] [address] December, [facility] [address] [facility] [id number] [place] [address] December, [facility] [address] [id number] [place] [address] December, [facility] [address] [id number] [place] [address] December, [facility] [address] [id number] [place] [address] December, [facility] [address] [id number] [place] [address] December, [facility] [address] [id number] [place] [address] December, [facility] [address] [id number] [place] [address] December, [facility] [address] [id number] [place] [address] December, [facility] [address] [id number] [place] [address] December, [facility] [address] [id number] [place] [address] December, [facility] [address] [id number] [place] [address] December, [facility] [address] [facility] [id number] [place] [address] December, [facility] [address] [id number] [place] [address] December, [facility] [address] [id number] [place] [address] Nov, [facility] [address] [id number] [place] [address] Nov, [facility] [address] [id number] [place] [address] Nov, [facility] [address] [id number] [place] [address] Nov, [facility] [address] [id number] [place] [address] Nov, [facility] [address] [id number] [place] [address] Nov, [facility] [address] [id number] [place] [address] Nov, [facility] [address] [id number] [place] [address] Nov, [facility] [address] [id number] [place] [address] Nov, [facility] [address] [id number] [place] [address] Nov, [facility] [address] [id number] [place] [address] Nov, [facility] [address] [id number] [place] [address] Nov, [facility] [address] [id number] [place] [address] Nov, [facility] [address] [id number] [place] [address] Nov, [facility] [address] [id number] [place] [address] Nov, [facility] [address] [id number] [place] [address] Nov, [facility] [address] [id number] [place] [address] Oct, [facility] [address] [id number] [place] [address] Oct, [facility] [address] [id number] [place] [address] Oct, [facility] [address] [id number] [place] [address] Oct, [facility] [address] [id number] [place] [address] Oct, [facility] [address] [id number] [place] [address] Oct, [facility] [address] [id number] [place] [address] Oct, [facility] [address] [id number] [place] [address] Oct, [facility] [address] [id number] [place] [address] Sep, [facility] [address] [id number] [place] [address] Sep, [facility] [address] [id number] [place] [address] Sep, [facility] [address] [id number] [place] [address] Sep, [facility] [address] [id number] [place] [address] Sep, [facility] [address] [id number] [place] [address] Sep, [facility] [address] [id number] [place] [address] Sep, [facility] [address] [id number] [place] [address] Sep, [facility] [address] [id number] [place] [address] Sep, [facility] [address] [id number] [place] [address] Sep, [facility] [address] [id number] [place] [address] Aug, [facility] [address] [id number] [place] [address] Aug, [facility] [address] [id number] [place] [address] Jul, [facility] [address] [id number] [place] [address] Jul, [facility] [address] [id number] [place] [address] Jul, [facility] [address] [id number] [place] [address] Jul, [facility] [address] [id number] [place] [address] Jul, [facility] [address] [id number] [place] [address] Jul, [facility] [id number] [place] [address] Jun, [facility] [address] [id number] [place] [address] Jun, [facility] [address] [id number] [place] [address] Jun, [facility] [address] [id number] [place] [address] May, [facility] [address] [id number] [place] [address] December, [facility] [address] [id number] [place] [address] December, [facility] [address] [id number] [place] [address] Jan, [facility] [address] [id number] [place] [address] Jan, [facility] [address] [id number] [place] [address] Jan, [facility] [address] [id number] [place] [address] Jan, [facility] [address] [id number] [place] [address] December, [facility] [address] [facility] [id number] [place] [id number] December, [facility] [address] [id number] [place] [address] December, [facility] [id number] [place] [address] December, [facility] [address] [id number] [place] [address] December, [facility] [id number] [place] [address] Oct, [facility] [address] [id number] [place] [address] Jul, [facility] [address] [id number] [place] [address] Jul, [facility] [address] [id number] [place] [address] Jun, IMMUNIZATIONS No Known Immunizations SOCIAL HISTORY [...]
--- OUTSIDE RECORDS SUMMARY | 2019-11-24 00:46 | XMS REPORT ---
Author Author Vilma REBOLLAR Organization [facility] Address [address] [place] [address] Care Team Providers Care Lining Feller Blindstitch Name Role Phone ANGELIA REBOLLAR Unavailable PROBLEMS Type Condition ICD9-CM Code SOF93-ER Code Onset Dates Condition S tatus SNOMED Code Problem Elevated blood pressure reading without diagnosi s of hypertension 796.2 Active 091893732 Problem Irregular menstrual cycle N92.6 Acti ve 24511684 Problem Lower abdominal pain R10.30 Active 26315205 Problem Chronic gingivitis, plaque induced K05.10 Active 58791124 Problem Positive serology for syphilis A53.0 Active 113661118 Problem Constipation, unspecified constipation type K59.00 Active 83060969 Problem Fatigue, unspecified type R53.83 Acti ve 34098202 Problem Anxiety F41.9 Active 03553971 Problem Tobacco abuse Z72.0 Active 701427 05 ALLERGIES No Information ENCOUNTERS Encounter Location Date Diagnosis [facility] IN [facility] [address] [facility] [id number] [address] [place] [address] Jul, Pharyngitis J02.9 [facility] [id number] [place] [address] May, Positive serology for syphilis A53.0 [facility] [id number] [place] [address] May, [facility] [id number] [place] [address] Apr, [place] [address] [address] Apr, Concern about STD in female without diag nosis Z71.1 ; Needlestick injury due to hypodermic needle W46.0XXA ; Candidal vaginitis B37.3 and Trichomonas vaginitis A59.01 [facility] [address] [facility] [id number] [address] [place] [address] December, UTI symptoms R39.9 and Acute cystitis with hematuria N30.01 [address] [place] [id number] [place] [id number] Feb, Acute cystitis without hematuria N30.[address] [id number] Oct, [facility] [address] [facility] [place] [id number] Oct, Dental examination Z01.20 [facility] [address] [address] Oct, Dental examination Z01.20 and Chronic gi ngivitis, plaque induced K05.10 [facility] [id number] [place] [address] Oct, Dental examination Z01.[address] [id number] Jun, [address] [id number] May, [address] [id number] May, [address] [id number] Apr, [address] [id number] Apr, [address] [id number] Feb, Encounter for test, result unknown Z32.[address] [id number] Feb, [address] [id number] Feb, [address] [id number] Feb, Encounter for test, result unknown Z32.00 [id number] [place] [id number] Jan, [facility] [place] [address] [id number] [place] [address] Jan, [facility] [place] [address] [id number] [place] [id number] Jan, [facility] [place] [address] [id number] [place] [id number] December, [facility] [place] [address] [id number] [place] [id number] December, [facility] [place] [address] [id number] [place] [id number] Nov, [facility] [place] [address] [id number] [place] [address] Nov, [facility] [place] [address] [id number] [place] [id number] Nov, [facility] [place] [address] [id number] [place] [id number] Oct, [facility] [place] [address] [id number] [place] [id number] Oct, [facility] [place] [address] [id number] [place] [id number] Oct, [facility] [place] [address] [id number] [place] [id number] Oct, [facility] [place] [address] [id number] [place] [address]45 Sep, [facility] [place] [address] [id number] [place] [id number] Sep, [facility] [place] [address] [id number] [place] [id number] Sep, [facility] [place] [address] [id number] [place] 6494[address] Sep, [facility] [place] [address] [id number] [place] [id number] Sep, [facility] [place] [address] [id number] [place] [id number] Aug, [facility] [place] [address] [id number] [place] [id number] Jul, [facility] [place] [address] [id number] [id number] Jul, [facility] [place] [address], [place] [id number] Jun, [facility] [place] [address], [place] [id number] Jun, [facility] [place] [address], [place] [id number] Jun, [facility] [place] [address], [place] [id number] Jun, [facility] [place] [address], [place] [id number] Jun, [facility] [place] [address], [place] [id number] Jun, [facility] [place] [address], [place] [id number] May, [facility] [place] [address] [id number] May, [facility] [place] [address], [place] [id number] May, [facility] [address] [id number] [place] [address] Apr, Bronchitis J40 [facility] [place] [address] [id number] Mar, [facility] [place] [address] [id number] Feb, [facility] [place] [address] [id number] Feb, [facility] [place] [address] [id number] Feb, Sore throat J02.9 and Ear pain, right H92.01 [facility] [place] [address] [id number] Jan, [facility] [place] [address] [id number] Jan, Viral syndrome B34.9 ; Other seasonal allergic rhinitis J30.2 and Post-nasal drip R09.82 [facility] [place] [address] [id number] Jan, [place] [id number] [place] [address] [id number] Nov, [address] [id number] Oct, test positive Z32.01 [place] [address] [address] Oct, [place] [address] [address] Oct, [place] [address] [address] Sep, Kidney stones N20.0 [place] [address] [address] 18 Sep, 2015 [place] [address] [address] Sep, Pelvic pain R10.2 ; Left lower quadrant pain R10.32 ; Vaginal discharge N89.8 ; Routine screening for STI (sexually transmitted infection) Z11.3 ; Unprotected sexual intercourse Z72.51 ; Kidney stone N20.0 ; History of dyspareunia in female Z87.42 and Screening for malignant neoplasm of cervix Z12.4 [place] [address] [address] Jun, Constipation, unspecified constipation t ype K59.00 ; Lower abdominal pain R10.30 ; Irregular menstrual cycle N92.6 ; Anxiety F41.9 ; Fatigue, unspecified type R53.83 and Tobacco abuse Z72.[address] [id number] Jun, [address] [id number] Jun, Nausea R11.[address] [id number] May, Alopecia L65.[address] [id number] May, [address] [id number] [id number] Apr, [facility] [place] [address] [id number] [id number] Mar, [facility] [place] [address] [id number] [id number] Mar, [facility] [place] [address] [id number] [id number] Mar, [facility] [address] [id number] [place] [address] Mar, test negative V72.41 [facility] [place] [address] [id number] [id number] Mar, [facility] [place] [id number] [place] [address], [place] [id number] Mar, [facility] [place] [address] [id number] [id number] Feb, [facility] [place] [id number] [place] [address], [place] [id number] Feb, [facility] [place] [id number] [place] [address], [place] [id number] Feb, [facility] [place] [address] [id number] [id number] Feb, [facility] [place] [address] [id number] [id number] Feb, [facility] [place] [id number] [place] [address], [place] [id number] Feb, [facility] [place] [id number] [place] [address], [place] [id number] Feb, [facility] [place] [id number] [place] [address], [place] [id number] Feb, [facility] [place] [id number] [place] [address], [place] [id number] Feb, [facility] [place] [id number] [place] [address], [place] [id number] Feb, [facility] [place] [id number] [place] [address], [place] [id number] Feb, [facility] [place] [id number] [place] [address], [place] [id number] Feb, [facility] [place] [address] [id number] [place] [id number] Jan, [facility] [place] [address] [id number] [place] [id number] Jan, [facility] [place] [address] [id number] [id number] Jan, [facility] [address] [id number] [facility] [place] [id number] Jan, Dental examination V72.2 [facility] [place] [address] [id number] [place] [id number] Jan, [facility] [place] [address] [id number] [place] [id number] Jan, [facility] [place] [address] [id number] [id number] Jan, [facility] [place] [address] [id number] [id number] Jan, [facility] [place] [address] [id number] [place] [address], [place] [id number] Jan, [facility] [place] [address] [id number] [id number] Jan, [facility] [place] [address] [id number] [place] [address], [place] [id number] 14 Jan, 2015 [facility] [place] [address] [id number] [id number] Jan, [facility] [place] [address] [id number] [place] [address], [place] [id number] Jan, [facility] [place] [address] [id number] [place] [address], [place] [id number] Jan, [facility] [place] [address] [id number] [id number] Jan, [facility] [place] [address] [id number] [place], [place] [id number] Jan, [facility] [place] [address] [id number] [place] [address], [place] [id number] Jan, [facility] [place] [address] [id number] [place] [address], [place] [id number] Jan, [facility] [place] [address] [id number] [place] [address], [place] [id number] Jan, [facility] [place] [address] [id number] [place] [id number] Jan, [facility] [place] [address] [id number] [place] [id number] Jan, [facility] [place] [address] [id number] [place] [id number] Jan, 2014 [facility] [place] [address] [id number] [place] [id number] Jan, 2014 [facility] [place] [address] [id number] [place] [id number] Jan, [facility] [place] [address] [id number] [place] [id number] Jan, [facility] [place] [address] [id number] [place] [id number] Jan, [facility] [place] [address] [id number] [place] [id number] Jan, [facility] [place] [address] [id number] [place] [id number] Jan, [facility] [place] [address] [id number] [place] [id number] December, [facility] [place] [address] [id number] [place] [id number] December, [facility] [place] [address] [id number] [place] 711797516 December, [facility] [place] [address] [id number] [place] [id number] December, [facility] [place] [address] [id number] [place] [id number] December, [facility] [place] [address] [id number] [place] [id number] December, [facility] [place] [address] [id number] [place] [id number] December, [facility] [place] [address] [id number] [place] [id number] December, [facility] [place] [address] [id number] [place] [id number] December, [facility] [place] [address] [id number] [place] [id number] December, [facility] [place] [address] [id number] [place], [place] [id number] December, [facility] [place] [address] [id number] [place] [id number] December, [facility] [place] [address] [id number] [place] [id number] December, [facility] [place] [address] [id number] [id number] December, [facility] [place] [address] [id number] [id number] Nov, [facility] [place] [address] [id number] [id number] Nov, [facility] [place] [address] [facility]07757[facility] [id number] Nov, [facility] [place] [address] [facility]07757[facility] [id number] Nov, [facility] [id number] [place] [address] Nov, [facility] [id number] [place] [address] Nov, [facility] [address] [address] Sep, [facility] [address] [address] Sep, [facility] [id number] [place] [address] Jul, [facility] [id number] [place] [address] Jul, [facility] [address] [address] Jul, [facility] [id number] [place] [address] Jul, [facility] [id number] [place] [address] Jul, [facility] [address] [address] Jul, [facility] [address] [facility] [id number] [place] [address] Jun, [facility] [address] [facility] [id number] [place] [address] Jun, [facility] [address] [id number] [place] [address] Jun, [facility] [address] [id number] [place] [address] Jun, [facility] [address] [facility] [id number] [place] [address] May, [facility] [address] [id number] [place] [address] May, [facility] [address] [id number] [place] [address] Feb, [facility] [address] [id number] [place] [address] Feb, [facility] [address] [id number] [place] [address] Feb, [facility] [address] [id number] [place] [address] Feb, [facility] [address] [id number] [place] [address] Jan, [facility] [address] [id number] [place] [address] Jan, [facility] [address] [id number] [place] [address] Jan, [facility] [address] [id number] [place] [address] Jan, [facility] [address] [id number] [place] [address] December, [facility] [address] [id number] [place] [address] December, [facility] [address] [id number] [place] [address] December, [facility] [address] [id number] [place] [address] December, [facility] [address] [id number] [place] [address] December, [facility] [address] [id number] [place] [address] December, [facility] [address] [id number] [place] [address] December, [facility] [address] [id number] [place] [address] December, [facility] [address] [id number] [place] [address] December, [facility] [address] [id number] [place] [address] December, [facility] [address] [id number] [place] [address] December, [facility] [address] [id number] [place] [address] December, [facility] [address] [id number] [place] [address] December, [facility] [address] [id number] [place] [address] December, [facility] [address] [id number] [place] [address] December, [facility] [address] [id number] [place] [address] December, [facility] [address] [id number] [place] [address] December, [facility] [address] [id number] [place] [address] Nov, [facility] [address] [id number] [place] [address] Nov, [facility] [address] [id number] [place] [address] Nov, [facility] [address] [id number] [place] [address] Nov, [facility] [address] [id number] [place] [address] Nov, [facility] [address] [id number] [place] [address] Nov, [facility] [address] [id number] [place] [address] Nov, [facility] [address] [id number] [place] [address] Nov, [facility] [address] [id number] [place] [address] Nov, [facility] [address] [id number] [place] [address] Nov, [facility] [address] [id number] [place] [address] Nov, [facility] [address] [id number] [place] [address] Nov, [facility] [address] [id number] [place] [address] Nov, [facility] [address] [id number] [place] [address] Nov, [facility] [address] [id number] [place] [address] Nov, [facility] [address] [id number] [place] [address] Nov, [facility] [address] [id number] [place] [address] Oct, [facility] [address] [id number] [place] [address] Oct, [facility] [address] [id number] [place] [address] Oct, [facility] [address] [id number] [place] [address] Oct, [facility] [address] [id number] [place] [address] Oct, [facility] [address] [id number] [place] [address] Oct, [facility] [address] [id number] [place] [address] Oct, [facility] [address] [id number] [place] [address] Oct, [facility] [address] [id number] [place] [address] Sep, [facility] [address] [id number] [place] [address] Sep, [facility] [address] [id number] [place] [address] Sep, [facility] [address] [id number] [place] [address] Sep, [facility] [address] [id number] [place] [address] Sep, [facility] [address] [id number] [place] [address] Sep, [facility] [address] [id number] [place] [address] Sep, [facility] [address] [id number] [place] [address] Sep, [facility] [address] [id number] [place] [address] Sep, [facility] [address] [id number] [place] [address] Sep, [facility] [address] [id number] [place] [address] Aug, [facility] [address] [id number] [place] [address] Aug, [facility] [address] [id number] [place] [address] Jul, [facility] [address] [id number] [place] [address] Jul, [facility] [address] [id number] [place] [address] Jul, [facility] [address] [id number] [place] [address] Jul, [facility] [address] [id number] [place] [address] Jul, [facility] [address] [id number] [place] [address] Jul, [facility] [id number] [place] [address] Jun, [facility] [address] [id number] [place] [address] Jun, [facility] [address] [id number] [place] [address] Jun, [facility] [address] [id number] [place] [address] May, [facility] [address] [id number] [place] [address] December, [facility] [address] [id number] [place] [address] December, [facility] [address] [id number] [place] [address] Jan, [facility] [id number] [place] [address] Jan, [facility] [address] [id number] [place] [address] Jan, [facility] [address] [id number] [place] [address] Jan, [facility] [address] [id number] [place] [address] December, [facility] [address] [id number] [place] [id number] December, [facility] [address] [id number] [place] [address] December, [facility] [id number] [place] [address] December, [facility] [address] [id number] [place] [address] December, [facility] [id number] [place] [address] Oct, [facility] [address] [id number] [place] [address] Jul, [facility] [id number] [place] [address] Jul, [facility] [address] [id number] [place] [address] Jun, IMMUNIZATIONS No Known Immunizations SOCIAL HISTORY [...]
--- OUTSIDE RECORDS SUMMARY | 2019-11-24 00:46 | XMS REPORT ---
Author Author Vilma Guthrie Organization [facility] Address [address] [place] [address] Care Team Providers Care Rag Inspector Name Role Phone NELLY Guthrie Unavailable PROBLEMS Type Condition ICD9-CM Code YNT88-FP Code Onset Dates Condition S tatus SNOMED Code Problem Elevated blood pressure reading without diagnosi s of hypertension 796.2 Active 112229714 Problem Irregular menstrual cycle N92.6 Acti ve 82049046 Problem Lower abdominal pain R10.30 Active 52652160 Problem Chronic gingivitis, plaque induced K05.10 Active 67911967 Problem Positive serology for syphilis A53.0 Active 108751588 Problem Constipation, unspecified constipation type K59.00 Active 31421359 Problem Fatigue, unspecified type R53.83 Acti ve 81491373 Problem Anxiety F41.9 Active 93664587 Problem Tobacco abuse Z72.0 Active 084478 05 ALLERGIES No Information ENCOUNTERS Encounter Location Date Diagnosis [facility] [address] [facility] [id number] [place] [address] Jul, Pharyngitis J02.9 [facility] [id number] [place] [address] May, Positive serology for syphilis A53.0 [facility] [id number] [place] [address] May, [facility] [address] [address] Apr, [facility] [address] [address] Apr, Concern about STD in female without diag nosis Z71.1 ; Needlestick injury due to hypodermic needle W46.0XXA ; Candidal vaginitis B37.3 and Trichomonas vaginitis A59.01 [facility] [address] [facility] [id number] [address] [address] December, UTI symptoms R39.9 and Acute cystitis with hematuria N30.01 [facility] [address] [id number] Feb, Acute cystitis without hematuria N30.[address] [id number] Oct, [facility] [address] [id number] [place] [id number] Oct, Dental examination Z01.20 [facility] [address] [address] Oct, Dental examination Z01.20 and Chronic gi ngivitis, plaque induced K05.10 [facility] [id number] [place] [address] Oct, Dental examination Z01.[address] [id number] Jun, [address] [id number] May, [address] [id number] May, [address] [id number] Apr, [address] [id number] Apr, [address] [id number] Feb, Encounter for test, result unknown Z32.[address] [id number] Feb, [address] [id number] Feb, [address] [id number] Feb, Encounter for test, result unknown Z32.[address] [id number] [place] [id number] Jan, [facility] [place] [address] [id number] [place] [id number] Jan, [facility] [place] [address] [id number] [place] 639[address]2386 Jan, [facility] [place] [address] [id number] [place] [id number] December, [facility] [place] [address] [id number] [place] [id number] December, [facility] [place] [address] [id number] [place] [id number] Nov, [facility] [place] [address] [id number] [place] [id number] Nov, [facility] [place] [address] [id number] [place] [id number] Nov, [facility] [place] [address] [id number] [place] [id number] Oct, [facility] [place] [address] [id number] [place] [id number] Oct, [facility] [place] [address] [id number] [place] [id number] Oct, [facility] [place] [address] [id number] [place] [id number] Oct, [facility] [place] [address] [id number] Sep, [facility] [place] [address] [id number] [place] [id number] Sep, [facility] [place] [address] [id number] [place] [id number] Sep, [facility] [place] [address] [id number] [place] [id number] Sep, [facility] [place] [address] [id number] [place] [id number] Sep, [facility] [place] [address] [id number] [place] [id number] Aug, [facility] [place] [address] [id number] [place] [id number] Jul, [facility] [place] [address] [id number] [place] [address], [place] [id number] Jul, [facility] [place] [address], [place] [id number] Jun, [facility] [place] [address], [place] [id number] Jun, [facility] [place] [address], [place] [id number] Jun, [facility] [place] [address], [place] [id number] Jun, [facility] [place] [address], [place] [id number] Jun, [facility] [place] [address], [place] [id number] Jun, [facility] [place] [address], [place] [id number] May, [facility] [place] [address] [id number] May, [facility] [place] [address], [place] [id number] May, [facility] [address] [id number] [place] [address] Apr, Bronchitis J40 [facility] [place] [address] [id number] Mar, [facility] [place] [address] [id number] Feb, [facility] [place] [address] [id number] Feb, [facility] [place] [address] [id number] Feb, Sore throat J02.9 and Ear pain, right H92.01 [facility] [place] [address] [id number] Jan, [facility] [place] [address] [id number] Jan, Viral syndrome B34.9 ; Other seasonal allergic rhinitis J30.2 and Post-nasal drip R09.82 [facility] [place] [address] [id number] Jan, [address] [id number] Nov, [address] [id number] Oct, test positive Z32.01 [address] [place] [address] [address] Oct, [address] [address] [address] Oct, [place] [address] [address] Sep, Kidney stones N20.0 [address] [address] [address] 18 Sep, 2015 [address] [address] [address] Sep, Pelvic pain R10.2 ; Left lower quadrant pain R10.32 ; Vaginal discharge N89.8 ; Routine screening for STI (sexually transmitted infection) Z11.3 ; Unprotected sexual intercourse Z72.51 ; Kidney stone N20.0 ; History of dyspareunia in female Z87.42 and Screening for malignant neoplasm of cervix Z12.4 [place] [address] [address] 12 Jun, 2015 Constipation, unspecified constipation t ype K59.00 ; Lower abdominal pain R10.30 ; Irregular menstrual cycle N92.6 ; Anxiety F41.9 ; Fatigue, unspecified type R53.83 and Tobacco abuse Z72.[address] [id number] Jun, [address] [id number] Jun, Nausea R11.[address] [id number] May, Alopecia L65.[address] [id number] May, [facility] [place] [address] [id number] [id number] Apr, [facility] [place] [address] 03026757[facility] [id number] Mar, [facility] [place] [id number] [place] [address], [place] [id number] Mar, [facility] [place] [address] 03026757[facility] [id number] Mar, [facility] [address] [id number] [place] [address] Mar, test negative V72.41 [facility] [place] [address] 03026757[facility] [id number] Mar, [facility] [place] [id number] [place] [address], [place] [id number] Mar, [facility] [place] [address] 03026757[facility] [id number] Feb, [facility] [place] [id number] [place] [address], [place] [id number] Feb, [facility] [place] [id number] [place] [address], [place] [id number] Feb, [facility] [place] [id number] [place] [address], [place] [id number] Feb, [facility] [place] [id number] [place] [address], [place] [id number] Feb, [facility] [place] [address] [id number] [id number] Feb, [facility] [place] [id number] [place] [address], [place] [id number] Feb, [facility] [place] [id number] [place] [address], [place] [id number] Feb, [facility] [place] [id number] [place] [address], [place] [id number] Feb, [facility] [place] [id number] [place] [address], [place] [id number] Feb, [facility] [place] [address] 03026757[facility] [id number] Feb, [facility] [place] [id number] [place] [address], [place] [id number] Feb, [facility] [place] [address] [id number] [place] [id number] Jan, [facility] [place] [address] [id number] [place] [id number] Jan, [facility] [place] [address] [id number] [place] [id number] Jan, [facility] [place] [address] [facility] [id number] [facility] [id number] Jan, Dental examination V72.2 [facility] [place] [address] [id number] [place] [id number] Jan, [facility] [place] [address] [id number] [place] [id number] Jan, [facility] [place] [address] [id number] [id number] Jan, [facility] [place] [address] [id number] [place] [address], [place] [id number] Jan, [facility] [place] [address] [id number] [place] [address], [place] [id number] 16 Jan, 2015 [facility] [place] [address] 49720LN30397W[facility] [id number] 15 Jan, 2015 [facility] [place] [address] [id number] [place] [address], [place] [id number] 14 Jan, 2015 [facility] [place] [address] 49720LO28679W[facility] [id number] Jan, [facility] [place] [address] [id number] [place] [address], [place] [id number] Jan, [facility] [place] [address] [id number] [place] [address], [place] [id number] Jan, [facility] [place] [address] [id number] [place] [address], [place] [id number] Jan, [facility] [place] [address] [id number] [place] [id number] Jan, [facility] [place] [address] [id number] [place] [address], [place] [id number] Jan, [facility] [place] [address] [id number] [place] [address], [place] [id number] Jan, [facility] [place] [address] [place] [id number] Jan, [facility] [place] [address] [id number] [place] [id number] Jan, [facility] [place] [address] [id number] [place] [id number] Jan, [facility] [place] [address] [id number] [place] [id number] Jan, 2014 [facility] [place] [address] [id number] [place] [id number] Jan, 2014 [facility] [place] [address] [id number] [place] [id number] Jan, 2014 [facility] [place] [address] [id number] [place] [id number] Jan, [facility] [place] [address] [id number] [place] [id number] Jan, [facility] [place] [address] [id number] [place] [id number] Jan, [facility] [place] [address] [id number] [place] [id number] Jan, [facility] [place] [address] [id number] [place] [id number] December, [facility] [place] [address] [id number] [place] [id number] December, [facility] [place] [address] [id number] [place] [id number] December, [facility] [place] [address] [id number] [place] [id number] December, [facility] [place] [address] [id number] [place] [id number] December, [facility] [place] [address] [id number] [place] [id number] December, [facility] [place] [address] [id number] [place] [id number] December, [facility] [place] [address] [id number] [place] [id number] December, [facility] [place] [address] [id number] [place] [id number] December, [facility] [place] [address] [id number] [place] [id number] December, [facility] [place] [address] [id number] [place] [id number] December, [facility] [place] [address] [id number] [facility] [id number] December, [facility] [place] [address] [id number] [place] [id number] December, [facility] [place] [address] [id number] [facility] [id number] December, [facility] [place] [address] [id number] COUNTY [facility] [id number] Nov, [facility] [place] [address] [facility]07757[facility] [id number] Nov, [facility] [place] [address] [facility]07757[facility] [id number] Nov, [facility] [place] [address] [facility]07757[facility] [id number] Nov, [facility] [id number] [place] [address] Nov, [facility] [id number] [place] [address] Nov, [facility] [address] [address] Sep, [facility] [id number] [place] [address] Sep, [facility] [id number] [place] [address] Jul, [facility] [id number] [place] [address] Jul, [facility] [id number] [place] [address] Jul, [facility] [id number] [place] [address] Jul, [facility] [id number] [place] [address] Jul, [facility] [id number] [place] [address] Jul, [facility] [address] [facility] [id number] [facility] [place] [address] Jun, [facility] [address] [facility] [id number] [facility] [place] [address] Jun, [facility] [address] [id number] [place] [address] Jun, [facility] [address] [id number] [place] [address] Jun, [facility] [address] [facility] [id number] [facility] [address] May, [facility] [address] [id number] [place] [address] May, [facility] [address] [id number] [place] [address] Feb, [facility] [address] [id number] [place] [address] Feb, [facility] [address] [id number] [place] [address] Feb, [facility] [address] [id number] [place] [address] Feb, [facility] [address] [id number] [place] [address] Jan, [facility] [address] [id number] [place] [address] Jan, [facility] [address] [facility] [id number] [place] [address] Jan, [facility] [address] [id number] [place] [address] Jan, [facility] [address] [id number] [place] [address] December, [facility] [address] [id number] [place] [address] December, [facility] [address] [facility] [id number] [place] [address] December, [facility] [address] [id number] [place] [address] December, [facility] [address] [facility] [id number] [place] [address] December, [facility] [address] [id number] [place] [address] December, [facility] [address] [id number] [place] [address] December, [facility] [address] [facility] [id number] [place] [address] December, [facility] [address] [id number] [place] [address] December, [facility] [address] [id number] [place] [address] December, [facility] [address] [id number] [place] [address] December, [facility] [address] [id number] [place] [address] December, [facility] [address] [id number] [place] [address] December, [facility] [address] [id number] [place] [address] December, [facility] [address] [id number] [place] [address] December, [facility] [address] [id number] [place] [address] December, [facility] [address] [id number] [place] [address] December, [facility] [address] [id number] [place] [address] Nov, [facility] [address] [id number] [place] [address] Nov, [facility] [address] [facility] [id number] [place] [address] Nov, [facility] [address] [id number] [place] [address] Nov, [facility] [address] [id number] [place] [address] Nov, [facility] [address] [id number] [place] [address] Nov, [facility] [address] [facility] [id number] [place] [address] Nov, [facility] [address] [id number] [place] [address] Nov, [facility] [address] [id number] [place] [address] Nov, [facility] [address] [id number] [place] [address] Nov, [facility] [address] [id number] [place] [address] Nov, [facility] [address] [id number] [place] [address] Nov, [facility] [address] [id number] [place] [address] Nov, [facility] [address] [id number] [place] [address] Nov, [facility] [address] [id number] [place] [address] Nov, [facility] [address] [id number] [place] [address] Nov, [facility] [address] [id number] [place] [address] Oct, [facility] [address] [id number] [place] [address] Oct, [facility] [address] [id number] [place] [address] Oct, [facility] [address] [facility] [id number] [place] [address] Oct, [facility] [address] [facility] [id number] [place] [address] Oct, [facility] [address] [id number] [place] [address] Oct, [facility] [address] [id number] [place] [address] Oct, [facility] [address] [facility] [id number] [place] [address] Oct, [facility] [address] [id number] [place] [address] Sep, [facility] [address] [id number] [place] [address] Sep, [facility] [address] [id number] [place] [address] Sep, [facility] [address] [id number] [place] [address] Sep, [facility] [address] [facility] [id number] [place] [address] Sep, [facility] [address] [facility] [id number] [place] [address] Sep, [facility] [address] [facility] [id number] [place] [address] Sep, [facility] [address] [facility] [id number] [place] [address] Sep, [facility] [address] [facility] [id number] [place] [address] Sep, [facility] [address] [facility] [id number] [place] [address] Sep, [facility] [address] [facility] [id number] [place] [address] Aug, [facility] [address] [facility] [id number] [place] [address] Aug, [facility] [address] [facility] [id number] [place] [address] Jul, [facility] [address] [facility] [id number] [place] [address] Jul, [facility] [address] [facility] [id number] [place] [address] Jul, [facility] [address] [facility] [id number] [place] [address] Jul, [facility] [address] [facility] [id number] [place] [address] Jul, [facility] [address] [facility] [id number] [place] [address] Jul, [facility] [id number] [place] [address] Jun, [facility] [address] [facility] [id number] [place] [address] Jun, [facility] [address] [facility] [id number] [place] [address] Jun, [facility] [address] [facility] [id number] [place] [address] May, [facility] [address] [facility] [id number] [place] [address] December, [facility] [address] [facility] [id number] [place] [address] December, [facility] [address] [facility] [id number] [place] [address] Jan, [facility] [address] [facility] [id number] [place] [address] Jan, [facility] [address] [facility] [id number] [place] [address] Jan, [facility] [address] [facility] [id number] [place] [address] Jan, [facility] [address] [facility] [id number] [place] [address] December, [facility] [address] [facility] [id number] [place] [id number] December, [facility] [address] [facility] [id number] [place] [address] December, [facility] [id number] [place] [address] December, [facility] [address] [facility] [id number] [place] [address] December, [facility] [id number] [place] [address] Oct, [facility] [address] [facility] [id number] [place] [address] Jul, [facility] [address] [facility] [id number] [place] [address] Jul, [facility] [address] [facility] [id number] [place] [address] Jun, IMMUNIZATIONS No Known Immunizations SOCIAL HISTORY [...]
--- OUTSIDE RECORDS SUMMARY | 2019-11-24 00:46 | XMS REPORT ---
Author Author Vilma REBOLLAR Organization [facility] Address [address] [place] [address] Care Team Providers Care Horse Rancher Name Role Phone ANGELIA REBOLLAR Unavailable PROBLEMS Type Condition ICD9-CM Code GLD78-AI Code Onset Dates Condition S tatus SNOMED Code Problem Elevated blood pressure reading without diagnosi s of hypertension 796.2 Active 995529429 Problem Irregular menstrual cycle N92.6 Acti ve 35561185 Problem Lower abdominal pain R10.30 Active 02714049 Problem Chronic gingivitis, plaque induced K05.10 Active 07703214 Problem Positive serology for syphilis A53.0 Active 886421831 Problem Constipation, unspecified constipation type K59.00 Active 80953510 Problem Fatigue, unspecified type R53.83 Acti ve 14416742 Problem Anxiety F41.9 Active 06086347 Problem Tobacco abuse Z72.0 Active 814827 05 ALLERGIES No Information ENCOUNTERS Encounter Location Date Diagnosis [facility] [address] [facility] [id number] [address] [place] [address] Jul, Pharyngitis J02.9 [facility] [id number] [place] [address] May, Positive serology for syphilis A53.0 [facility] [address] [id number] [place] [address] May, [facility] [id number] [place] [address] Apr, [place] [address] [address] Apr, Concern about STD in female without diag nosis Z71.1 ; Needlestick injury due to hypodermic needle W46.0XXA ; Candidal vaginitis B37.3 and Trichomonas vaginitis A59.01 [facility] [address] [facility] [id number] [address] [place] [address] December, UTI symptoms R39.9 and Acute cystitis with hematuria N30.01 [place] [id number] [place] [id number] Feb, Acute cystitis without hematuria N30.[address] [id number] Oct, [facility] [address] [id number] [place] [id number] Oct, Dental examination Z01.20 [facility] [address] [address] Oct, Dental examination Z01.20 and Chronic gi ngivitis, plaque induced K05.10 [facility] [address] [id number] [place] [address] Oct, Dental examination Z01.[address] [id number] Jun, [address] [id number] May, [address] [id number] May, [address] [id number] Apr, [address] [id number] Apr, [address] [id number] Feb, Encounter for test, result unknown Z32.[address] [id number] Feb, [address] [id number] Feb, [address] [id number] Feb, Encounter for test, result unknown Z32.00 [address] [id number] [place] [id number] Jan, [facility] [place] [address] [id number] [place] [id number] Jan, [facility] [place] [address] [id number] [place] 9[address] Jan, [facility] [place] [address] [id number] [place] [id number] December, [facility] [place] [address] [id number] [place] [id number] December, [facility] [place] [address] [id number] [place] [id number] Nov, [facility] [place] [address] [id number] [place] [id number] Nov, [facility] [place] [address] [id number] [place] [id number] Nov, [facility] [place] [address] [id number] [place] [id number] Oct, [facility] [place] [address] [id number] [place] [id number] Oct, [facility] [place] [address] [id number] [place] [id number] Oct, [facility] [place] [address] [id number] [place] [id number] Oct, [facility] [place] [address] [id number] [place] 037[place]23[place] Sep, [facility] [place] [address] [id number] [place] [id number] Sep, [facility] [place] [address] [id number] [place] 719[place]88[place] Sep, [facility] [place] [address] [id number] [place] [id number] Sep, [facility] [place] [address] [id number] [place] 000102715 Sep, [facility] [place] [address] [id number] [place] [id number] Aug, [facility] [place] [address] [id number] [place] [id number] Jul, [facility] [place] [address] [id number] [facility] [id number] Jul, [facility] [place] [address], [place] [id number] Jun, [facility] [place] [address], [place] [id number] Jun, [facility] [place] [address], [place] [id number] Jun, [facility] [place] [address], [place] [id number] Jun, [facility] [place] [address], [place] [id number] Jun, [facility] [place] [address], [place] [id number] Jun, [facility] [place] [address], [place] [id number] May, [facility] [place] [address] [id number] May, [facility] [place] [address], [place] [id number] May, [facility] [address] [id number] [place] [address] Apr, Bronchitis J40 [facility] [place] [address] [id number] Mar, [facility] [place] [address] [id number] Feb, [facility] [place] [address] [id number] Feb, [facility] [place] [address] [id number] Feb, Sore throat J02.9 and Ear pain, right H92.01 [facility] [place] [address] [id number] Jan, [facility] [place] [address] [id number] Jan, Viral syndrome B34.9 ; Other seasonal allergic rhinitis J30.2 and Post-nasal drip R09.82 [facility] [place] [address] [id number] Jan, [place] [id number] [place] [id number] Nov, [address] [id number] Oct, test positive Z32.01 [place] [address] [address] Oct, [place] [address] [address] Oct, [place] [address] [address] Sep, Kidney stones N20.0 [place] [address] [address] 18 Sep, 2015 [place] [address] [address] Sep, Pelvic pain R10.2 ; Left lower quadrant pain R10.32 ; Vaginal discharge N89.8 ; Routine screening for STI (sexually transmitted infection) Z11.3 ; Unprotected sexual intercourse Z72.51 ; Kidney stone N20.0 ; History of dyspareunia in female Z87.42 and Screening for malignant neoplasm of cervix Z12.4 [place] [address] [address] Jun, Constipation, unspecified constipation t ype K59.00 ; Lower abdominal pain R10.30 ; Irregular menstrual cycle N92.6 ; Anxiety F41.9 ; Fatigue, unspecified type R53.83 and Tobacco abuse Z72.[address] [id number] Jun, [address] [id number] Jun, Nausea R11.[address] [id number] May, Alopecia L65.[address] [id number] May, [address] [id number] [facility] [id number] Apr, [facility] [place] [address] [id number] [id number] Mar, [facility] [place] [address] [id number] [id number] Mar, [facility] [place] [address] [id number] [id number] Mar, [facility] [address] [id number] [place] [address] Mar, test negative V72.41 [facility] [place] [address] [id number] [id number] Mar, [facility] [place] [id number] [place] [address], [place] [id number] Mar, [facility] [place] [address] [id number] [id number] Feb, [facility] [place] [id number] [place] [address], [place] [id number] Feb, [facility] [place] [id number] [place] [address], [place] [id number] Feb, [facility] [place] [address] [id number] [id number] Feb, [facility] [place] [address] [id number] [id number] Feb, [facility] [place] [id number] [place] [address], [place] [id number] Feb, [facility] [place] [id number] [place] [address], [place] [id number] Feb, [facility] [place] [id number] [place] [address], [place] [id number] Feb, [facility] [place] [id number] [place] [address], [place] [id number] Feb, [facility] [place] [id number] [place] [address], [place] [id number] Feb, [facility] [place] [id number] [place] [address], [place] [id number] Feb, [facility] [place] [id number] [place] [address], [place] [id number] Feb, [facility] [place] [address] [id number] [place] [id number] Jan, [facility] [place] [address] [id number] [place] [id number] Jan, [facility] [place] [address] [id number] [facility] [id number] Jan, [facility] [address] [facility] [address] [id number] [facility] [place] [place] [id number] Jan, Dental examination V72.2 [facility] [place] [address] [id number] [place] [id number] Jan, [facility] [place] [address] [id number] [place] [id number] Jan, [facility] [place] [address] [id number] [facility]OS[facility] [id number] Jan, [facility] [place] [address] [id number] HOSPITAL[place] [id number] Jan, [facility] [place] [address] [id number] [place] [address], [place] [id number] Jan, [facility] [place] [address] [id number] HOSPITAL[place] [id number] Jan, [facility] [place] [address] [id number] [place] [address], [place] [id number] 14 Jan, 2015 [facility] [place] [address] [id number] HOS[facility] [id number] Jan, [facility] [place] [address] [id number] [place] [address], [place] [id number] Jan, [facility] [place] [address] [id number] [place] [address], [place] [id number] Jan, [facility] [place] [address] [id number] [facility] [id number] Jan, [facility] [place] [address] [id number] [place] [id number] Jan, [facility] [place] [address] [id number] [place] [address], [place] [id number] Jan, [facility] [place] [address] [id number] [place] [address], [place] [id number] Jan, [facility] [place] [address] [id number] [place] [address], [place] [id number] Jan, [facility] [place] [address] [id number] [place] [id number] Jan, [facility] [place] [address] [id number] [place] [id number] Jan, [facility] [place] [address] [id number] [place] [id number] Jan, 2014 [facility] [place] [address] [id number] [place] [id number] Jan, 2014 [facility] [place] [address] [id number] [place] [id number] Jan, [facility] [place] [address] [id number] [place] [id number] Jan, [facility] [place] [address] [id number] [place] [id number] Jan, [facility] [place] [address] [id number] [place] [id number] Jan, [facility] [place] [address] [id number] [place] [id number] Jan, [facility] [place] [address] [id number] [place] [id number] December, [facility] [place] [address] [id number] [place] [id number] December, [facility] [place] [address] [id number] [place] [id number] December, [facility] [place] [address] [id number] [place] [id number] December, [facility] [place] [address] [id number] [place] [id number] December, [facility] [place] [address] [id number] [place] [id number] December, [facility] [place] [address] [id number] [place] [id number] December, [facility] [place] [address] [id number] [place] [id number] December, [facility] [place] [address] [id number] [place] [id number] December, [facility] [place] [address] [id number] [place] [id number] December, [facility] [place] [address] [id number] [place] [id number] December, [facility] [place] [address] [id number] [place] [id number] December, [facility] [place] [address] [id number] [place] [id number] December, [facility] [place] [address] [id number] HOSP[facility] [id number] December, [facility] [place] [address] [id number] HOSPITAL[place] [id number] Nov, [facility] [place] [address] [id number] HOSPITAL[place] [id number] Nov, [facility] [place] [address] [facility]757[facility] [id number] Nov, [facility] [place] [address] [facility]07757[facility] [id number] Nov, [facility] [id number] [place] [address] Nov, [facility] [id number] [place] [address] Nov, [facility] [address] [address] Sep, [facility] [address] [address] Sep, [facility] [id number] [place] [address] Jul, [facility] [address] [id number] [place] [address] Jul, [facility] [address] [address] Jul, [facility] [id number] [place] [address] Jul, [facility] [address] [id number] [place] [address] Jul, [facility] [address] [address] Jul, [facility] [address] [facility] [id number] [place] [address] Jun, [facility] [address] [facility] [id number] [place] [address] Jun, [facility] [address] [id number] [place] [address] Jun, [facility] [address] [id number] [place] [address] Jun, [facility] [address] [facility] [id number] [place] [address] May, [facility] [address] [id number] [place] [address] May, [facility] [address] [id number] [place] [address] Feb, [facility] [address] [id number] [place] [address] Feb, [facility] [address] [id number] [place] [address] Feb, [facility] [address] [id number] [place] [address] Feb, [facility] [address] [id number] [place] [address] Jan, [facility] [address] [id number] [place] [address] Jan, [facility] [address] [id number] [place] [address] Jan, [facility] [address] [id number] [place] [address] Jan, [facility] [address] [id number] [place] [address] December, [facility] [address] [id number] [place] [address] December, [facility] [address] [id number] [place] [address] December, [facility] [address] [id number] [place] [address] December, [facility] [address] [id number] [place] [address] December, [facility] [address] [id number] [place] [address] December, [facility] [address] [id number] [place] [address] December, [facility] [address] [id number] [place] [address] December, [facility] [address] [id number] [place] [address] December, [facility] [address] [id number] [place] [address] December, [facility] [address] [id number] [place] [address] December, [facility] [address] [id number] [place] [address] December, [facility] [address] [id number] [place] [address] December, [facility] [address] [id number] [place] [address] December, [facility] [address] [id number] [place] [address] December, [facility] [address] [id number] [place] [address] December, [facility] [address] [id number] [place] [address] December, [facility] [address] [id number] [place] [address] Nov, [facility] [address] [id number] [place] [address] Nov, [facility] [address] [id number] [place] [address] Nov, [facility] [address] [id number] [place] [address] Nov, [facility] [address] [id number] [place] [address] Nov, [facility] [address] [id number] [place] [address] Nov, [facility] [address] [id number] [place] [address] Nov, [facility] [address] [id number] [place] [address] Nov, [facility] [address] [id number] [place] [address] Nov, [facility] [address] [id number] [place] [address] Nov, [facility] [address] [id number] [place] [address] Nov, [facility] [address] [id number] [place] [address] Nov, [facility] [address] [id number] [place] [address] Nov, [facility] [address] [id number] [place] [address] Nov, [facility] [address] [id number] [place] [address] Nov, [facility] [address] [id number] [place] [address] Nov, [facility] [address] [id number] [place] [address] Oct, [facility] [address] [id number] [place] [address] Oct, [facility] [address] [id number] [place] [address] Oct, [facility] [address] [id number] [place] [address] Oct, [facility] [address] [id number] [place] [address] Oct, [facility] [address] [id number] [place] [address] Oct, [facility] [address] [id number] [place] [address] Oct, [facility] [address] [id number] [place] [address] Oct, [facility] [address] [id number] [place] [address] Sep, [facility] [address] [id number] [place] [address] Sep, [facility] [address] [id number] [place] [address] Sep, [facility] [address] [id number] [place] [address] Sep, [facility] [address] [id number] [place] [address] Sep, [facility] [address] [id number] [place] [address] Sep, [facility] [address] [id number] [place] [address] Sep, [facility] [address] [id number] [place] [address] Sep, [facility] [address] [id number] [place] [address] Sep, [facility] [address] [id number] [place] [address] Sep, [facility] [address] [id number] [place] [address] Aug, [facility] [address] [id number] [place] [address] Aug, [facility] [address] [id number] [place] [address] Jul, [facility] [address] [id number] [place] [address] Jul, [facility] [address] [id number] [place] [address] Jul, [facility] [address] [id number] [place] [address] Jul, [facility] [address] [id number] [place] [address] Jul, [facility] [address] [id number] [place] [address] Jul, [facility] [id number] [place] [address] Jun, [facility] [address] [id number] [place] [address] Jun, [facility] [address] [id number] [place] [address] Jun, [facility] [address] [id number] [place] [address] May, [facility] [address] [id number] [place] [address] December, [facility] [address] [id number] [place] [address] December, [facility] [address] [id number] [place] [address] Jan, [facility] [id number] [place] [address] Jan, [facility] [address] [id number] [place] [address] Jan, [facility] [address] [id number] [place] [address] Jan, [facility] [address] [id number] [place] [address] December, [facility] [address] [id number] [place] [id number] December, [facility] [address] [id number] [place] [address] December, [facility] [id number] [place] [address] December, [facility] [address] [id number] [place] [address] December, [facility] [id number] [place] [address] Oct, [facility] [address] [id number] [place] [address] Jul, [facility] [id number] [place] [address] Jul, [facility] [address] [id number] [place] [address] Jun, IMMUNIZATIONS No Known Immunizations SOCIAL HISTORY [...]
--- OUTSIDE RECORDS SUMMARY | 2019-11-24 00:46 | XMS REPORT ---
Author Author Vilma PEÑALOZA Organization [facility] Address [address] [place] [address] Care Team Providers Care Machine Bander And Cellophaner Name Role Phone WILMAN PEÑALOZA Unavailable PROBLEMS Type Condition ICD9-CM Code XTN31-BT Code Onset Dates Condition S tatus SNOMED Code Problem Elevated blood pressure reading without diagnosi s of hypertension 796.2 Active 655040383 Problem Irregular menstrual cycle N92.6 Acti ve 77548482 Problem Lower abdominal pain R10.30 Active 44196198 Problem Chronic gingivitis, plaque induced K05.10 Active 00939210 Problem Positive serology for syphilis A53.0 Active 763209945 Problem Constipation, unspecified constipation type K59.00 Active 73641949 Problem Fatigue, unspecified type R53.83 Acti ve 11013888 Problem Anxiety F41.9 Active 16479037 Problem Tobacco abuse Z72.0 Active 616353 [id number] ALLERGIES No Information ENCOUNTERS Encounter Location Date Diagnosis [facility] [address] [facility] [id number] [address] [place] [address] Jul, Pharyngitis J02.9 [facility] [id number] [place] [address] May, Positive serology for syphilis A53.0 [facility] [id number] [place] [address] May, [facility] [id number] [place] [address] Apr, [place] [address] [address] Apr, Concern about STD in female without diag nosis Z71.1 ; Needlestick injury due to hypodermic needle W46.0XXA ; Candidal vaginitis B37.3 and Trichomonas vaginitis A59.01 [facility] [address] [facility] [place] [id number] [address] [place] [address] December, UTI symptoms R39.9 and Acute cystitis with hematuria N30.[address] [id number] Feb, Acute cystitis without hematuria N30.[address] [id number] Oct, [facility] [address] [facility] [place] [id number] Oct, Dental examination Z01.20 [facility] [id number] [place] [address] Oct, Dental examination Z01.20 and Chronic gi ngivitis, plaque induced K05.10 [facility] [address] [id number] [place] [address] Oct, Dental examination Z01.[address] [id number] Jun, [address] [id number] May, [address] [id number] May, [address] [id number] Apr, [address] [id number] Apr, [address] [id number] Feb, Encounter for test, result unknown Z32.[address] [id number] Feb, [address] [id number] Feb, [address] [id number] Feb, Encounter for test, result unknown Z32.00 [id number] [place] [address] Jan, [facility] [place] [address] [id number] [place] [id number] Jan, [facility] [place] [address] [id number] [place] [id number] Jan, [facility] [place] [address] [id number] [place] [id number] December, [facility] [place] [address] [id number] [place] [address] December, [facility] [place] [address] [id number] [place] [id number] Nov, [facility] [place] [address] [id number] [place] [id number] Nov, [facility] [place] [address] [id number] [place] [id number] Nov, [facility] [place] [address] [id number] [place] [id number] Oct, [facility] [place] [address] [id number] [place] [id number] Oct, [facility] [place] [address] [id number] [place] [id number] Oct, [facility] [place] [address] [id number] [place] 816[address]5617 Oct, [facility] [place] [address] [id number] [place] [id number] Sep, [facility] [place] [address] [id number] [place] [id number] Sep, [facility] [place] [address] [id number] [place] [id number] Sep, [facility] [place] [address] [id number] [place] [id number] Sep, [facility] [place] [address] [id number] [place] 134293865 Sep, [facility] [place] [address] [id number] [place] [id number] Aug, [facility] [place] [address] [id number] [place] [id number] Jul, [facility] [place] [address] [id number] [id number] Jul, [facility] [place] [address], [place] [id number] Jun, [facility] [place] [address], [place] [id number] Jun, [facility] [place] [address], [place] [id number] Jun, [facility] [place] [address], [place] [id number] Jun, [facility] [place] [address], [place] [id number] Jun, [facility] [place] [address], [place] [id number] Jun, [facility] [place] [address], [place] [id number] May, [facility] [place] [address], [place] [id number] May, [facility] [place] [address], [place] [id number] May, [facility] [address] [facility] [place] [address] Apr, Bronchitis J40 [facility] [place] [address] [id number] Mar, [facility] [place] [address] [id number] Feb, [facility] [place] [address] [id number] Feb, [facility] [place] [address] [id number] Feb, Sore throat J02.9 and Ear pain, right H92.01 [facility] [place] [address] [id number] Jan, [facility] [place] [address] [id number] Jan, Viral syndrome B34.9 ; Other seasonal allergic rhinitis J30.2 and Post-nasal drip R09.82 [facility] [place] [address] [id number] Jan, [place] [id number] [place] [id number] Nov, [address] [id number] Oct, test positive Z32.01 [place] [address] [address] Oct, [place] [address] [address] Oct, [place] [address] [address] Sep, Kidney stones N20.0 [place] [address] [address] 18 Sep, 2015 [place] [address] [address] Sep, Pelvic pain R10.2 ; Left lower quadrant pain R10.32 ; Vaginal discharge N89.8 ; Routine screening for STI (sexually transmitted infection) Z11.3 ; Unprotected sexual intercourse Z72.51 ; Kidney stone N20.0 ; History of dyspareunia in female Z87.42 and Screening for malignant neoplasm of cervix Z12.4 [place] [address] [address] 12 Jun, 2015 Constipation, unspecified constipation t ype K59.00 ; Lower abdominal pain R10.30 ; Irregular menstrual cycle N92.6 ; Anxiety F41.9 ; Fatigue, unspecified type R53.83 and Tobacco abuse Z72.[address] [id number] Jun, [address] [id number] Jun, Nausea R11.[address] [id number] May, Alopecia L65.[address] [id number] May, [facility] [place] [address] [id number] [id number] Apr, [facility] [place] [address] [id number] [id number] Mar, [facility] [place] [id number] [place] [address], [place] [id number] Mar, [facility] [place] [address] [id number] [phone] Mar, [facility] [address] [facility] [place] [address] Mar, test negative V72.41 [facility] [place] [id number] [place] [address], [place] [id number] Mar, [facility] [place] [id number] [place] [address], [place] [id number] Mar, [facility] [place] [id number] [place] [address], [place] 727013857 Feb, [facility] [place] [id number] [place] [address], [place] [id number] Feb, [facility] [place] [id number] [place] [address], [place] [id number] Feb, [facility] [place] [id number] [place] [address], [place] [id number] Feb, [facility] [place] [id number] [place] [address], [place] [id number] Feb, [facility] [place] [id number] [place] [address], [place] [id number] Feb, [facility] [place] [address], [place] [id number] Feb, [facility] [place] [id number] [place] [address], [place] [id number] Feb, [facility] [place] [id number] [place] [address], [place] [id number] Feb, [facility] [place] [id number] [place] [address], [place] [id number] Feb, [facility] [place] [id number] [place] [address], [place] [id number] Feb, [facility] [place] [id number] [place] [address], [place] [id number] Feb, [facility] [place] [address] [id number] [id number] Jan, [facility] [place] [address] [id number] [place] 376014819 Jan, [facility] [place] [address] [place] [id number] [facility] [id number] Jan, [facility] [address] [id number] [facility] [id number] Jan, Dental examination V72.2 [facility] [place] [address] [id number] [place] [address], [place] [id number] Jan, [facility] [place] [address] [id number] [place] [address], [place] [id number] Jan, [facility] [place] [address] [id number] [id number] Jan, [facility] [place] [address] [id number] [place] [address], [place] [id number] Jan, [facility] [place] [address], [place] [id number] Jan, [facility] [place] [address] [id number] [place] [address], [place] [id number] 15 Jan, 2015 [facility] [place] [address] [id number] [place] [address], [place] [id number] 14 Jan, 2015 [facility] [place] [address] [id number] [place] [address], [place] [id number] Jan, [facility] [place] [address] [id number] [place] [address], [place] [id number] Jan, [facility] [place] [address] [id number] [place] [address], [place] [id number] Jan, [facility] [place] [address] [id number] [place] [address], [place] [id number] Jan, [facility] [place] [address] [id number] [place] [address], [place] [id number] Jan, [facility] [place] [address] [id number] [place] [address], [place] [id number] Jan, [facility] [place] [address] [id number] [place] [address], [place] [id number] Jan, [facility] [place] [address], [place] [id number] Jan, 2014 [facility] [place] [address] [id number] [place] [id number] Jan, [facility] [place] [address] [id number] [place] 142391159 Jan, 2014 [facility] [place] [address] [id number] [place] 742394471 Jan, 2014 [facility] [place] [address] [id number] [place] [id number] Jan, 2014 [facility] [place] [address] [id number] [place] [id number] Jan, 2014 [facility] [place] [address] [id number] [place] [id number] Jan, [facility] [place] [address] [id number] [place] [id number] Jan, [facility] [place] [address] [id number] [place] 735991509 Jan, [facility] [place] [address] [id number] [place] [id number] Jan, [facility] [place] [address] [id number] [place] 523131064 December, [facility] [place] [address] [id number] [place] [id number] December, [facility] [place] [address] [id number] [place] [id number] December, [facility] [place] [address] [id number] [place] [id number] December, [facility] [place] [address] [id number] [place] [id number] December, [facility] [place] [address] [id number] [place] [id number] December, [facility] [place] [address] [id number] [place] 529473277 December, [facility] [place] [address] [id number] [place] [id number] December, [facility] [place] [address] [id number] [place] [id number] December, [facility] [place] [address] [id number] [place] [id number] December, [facility] [place] [address] [id number] [place] [id number] December, [facility] [place] [address] [id number] [place] [id number] December, [facility] [place] [address] [id number] [place] [id number] December, [facility] [place] [address] [id number] [id number] December, [facility] [place] [address] [id number] [id number] Nov, [facility] [place] [address] [id number] [facility] [id number] Nov, [facility] [place] [address] [id number] [id number] Nov, [facility] [place] [address] [id number] [id number] Nov, [facility] [id number] [place] [address] Nov, [facility] [id number] [place] [address] Nov, [facility] [address] [address] Sep, [facility] [id number] [place] [address] Sep, [facility] [id number] [place] [address] Jul, [facility] [id number] [place] [address] Jul, [facility] [address] [address] Jul, [facility] [id number] [place] [address] Jul, [facility] [id number] [place] [address] Jul, [facility] [id number] [place] [address] Jul, [facility] [address] [facility] [id number] [place] [address] Jun, [facility] [address] [id number] [place] [address] Jun, [facility] [address] [id number] [place] [address] Jun, [facility] [address] [id number] [place] [address] Jun, [facility] [address] [id number] [place] [address] May, [facility] [address] [id number] [place] [address] May, [facility] [address] [id number] [place] [address] Feb, [facility] [address] [id number] [place] [address] Feb, [facility] [address] [id number] [place] [address] Feb, [facility] [address] [id number] [place] [address] Feb, [facility] [address] [id number] [place] [address] Jan, [facility] [address] [id number] [place] [address] Jan, [facility] [address] [id number] [place] [address] Jan, [facility] [address] [id number] [place] [address] Jan, [facility] [address] [id number] [place] [address] December, [facility] [address] [id number] [place] [address] December, [facility] [address] [id number] [place] [address] December, [facility] [address] [id number] [place] [address] December, [facility] [address] [facility]] [id number] [place] [address] December, [facility] [address] [id number] [place] [address] December, [facility] [address] [id number] [place] [address] December, [facility] [address] [id number] [place] [address] December, [facility] [address] [id number] [place] [address] December, [facility] [address] [id number] [place] [address] December, [facility] [address] [id number] [place] [address] December, [facility] [address] [id number] [place] [address] December, [facility] [address] [id number] [place] [address] December, [facility] [address] [id number] [place] [address] December, [facility] [address] [id number] [place] [address] December, [facility] [address] [facility]] [id number] [place] [address] December, [facility] [address] [id number] [place] [address] December, [facility] [address] [id number] [place] [address] Nov, [facility] [address] [id number] [place] [address] Nov, [facility] [address] [id number] [place] [address] Nov, [facility] [address] [id number] [place] [address] Nov, [facility] [address] [id number] [place] [address] Nov, [facility] [address] [id number] [place] [address] Nov, [facility] [address] [id number] [place] [address] Nov, [facility] [address] [id number] [place] [address] Nov, [facility] [address] [id number] [place] [address] Nov, [facility] [address] [id number] [place] [address] Nov, [facility] [address] [id number] [place] [address] Nov, [facility] [address] [id number] [place] [address] Nov, [facility] [address] [id number] [place] [address] Nov, [facility] [address] [id number] [place] [address] Nov, [facility] [address] [id number] [place] [address] Nov, [facility] [address] [id number] [place] [address] Nov, [facility] [address] [id number] [place] [address] Oct, [facility] [address] [id number] [place] [address] Oct, [facility] [address] [id number] [place] [address] Oct, [facility] [address] [id number] [place] [address] Oct, [facility] [address] [id number] [place] [address] Oct, [facility] [address] [id number] [place] [address] Oct, [facility] [address] [id number] [place] [address] Oct, [facility] [address] [id number] [place] [address] Oct, [facility] [address] [id number] [place] [address] Sep, [facility] [address] [id number] [place] [address] Sep, [facility] [address] [id number] [place] [address] Sep, [facility] [address] [id number] [place] [address] Sep, [facility] [address] [id number] [place] [address] Sep, [facility] [address] [id number] [place] [address] Sep, [facility] [address] [id number] [place] [address] Sep, [facility] [address] [id number] [place] [address] Sep, [facility] [address] [id number] [place] [address] Sep, [facility] [address] [id number] [place] [address] Sep, [facility] [address] [id number] [place] [address] Aug, [facility] [address] [id number] [place] [address] Aug, [facility] [address] [id number] [place] [address] Jul, [facility] [address] [id number] [place] [address] Jul, [facility] [address] [id number] [place] [address] Jul, [facility] [address] [id number] [place] [address] Jul, [facility] [address] [id number] [place] [address] Jul, [facility] [address] [id number] [place] [address] Jul, [facility] [id number] [place] [address] Jun, [facility] [address] [id number] [place] [address] Jun, [facility] [address] [id number] [place] [address] Jun, [facility] [address] [id number] [place] [address] May, [facility] [address] [id number] [place] [address] December, [facility] [address] [id number] [place] [address] December, [facility] [address] [id number] [place] [address] Jan, [facility] [address] [id number] [place] [address] Jan, [facility] [address] [id number] [place] [address] Jan, [facility] [address] [id number] [place] [address] Jan, [facility] [address] [id number] [place] [address] December, [facility] [address] [facility] [id number] [place] [id number] December, [facility] [address] [id number] [place] [address] December, [facility] [id number] [place] [address] December, [facility] [address] [id number] [place] [address] December, [facility] [id number] [place] [address] Oct, [facility] [address] [id number] [place] [address] Jul, [facility] [address] [id number] [place] [address] Jul, [facility] [address] [id number] [place] [address] Jun, IMMUNIZATIONS No Known Immunizations SOCIAL HISTORY [...]
--- OUTSIDE RECORDS SUMMARY | 2019-11-24 00:46 | XMS REPORT ---
Author Author Vilma PEÑALOZA Organization [facility] Address [address] [place] [address] Care Team Providers Care Signal Tower Director Name Role Phone WILMAN PEÑALOZA Unavailable PROBLEMS Type Condition ICD9-CM Code NZM79-YX Code Onset Dates Condition S tatus SNOMED Code Problem Elevated blood pressure reading without diagnosi s of hypertension 796.2 Active 169466001 Problem Irregular menstrual cycle N92.6 Acti ve 43908425 Problem Lower abdominal pain R10.30 Active 94756812 Problem Chronic gingivitis, plaque induced K05.10 Active 98082899 Problem Positive serology for syphilis A53.0 Active 682055579 Problem Constipation, unspecified constipation type K59.00 Active 79560741 Problem Fatigue, unspecified type R53.83 Acti ve 81681999 Problem Anxiety F41.9 Active 65129439 Problem Tobacco abuse Z72.0 Active 180619 05 ALLERGIES No Information ENCOUNTERS Encounter Location Date Diagnosis [facility] [address] [facility] [id number] [address] [place] [address] Jul, Pharyngitis J02.9 [facility] [id number] [place] [address] May, Positive serology for syphilis A53.0 [facility] [id number] [place] [address] May, [facility] [address] [place] [address] Apr, [place] [address] [address] Apr, Concern about STD in female without diag nosis Z71.1 ; Needlestick injury due to hypodermic needle W46.0XXA ; Candidal vaginitis B37.3 and Trichomonas vaginitis A59.01 [facility] [address] [facility] [id number] [address] [place] [address] December, UTI symptoms R39.9 and Acute cystitis with hematuria N30.[address] [id number] Feb, Acute cystitis without hematuria N30.[address] [id number] Oct, [facility] [address] [facility] [place] [address] Oct, Dental examination Z01.20 [facility] [address] [place] [address] Oct, Dental examination Z01.20 and Chronic gi ngivitis, plaque induced K05.10 [facility] [id number] [place] [address] Oct, Dental examination Z01.[address] [id number] Jun, [address] [id number] May, [address] [id number] May, [address] [id number] Apr, [address] [id number] Apr, [address] [id number] Feb, Encounter for test, result unknown Z32.[address] [id number] Feb, [address] [id number] Feb, [address] [id number] Feb, Encounter for test, result unknown Z32.00 [address] [place] [id number] Jan, [facility] [place] [address] [id number] [place] [address] Jan, [facility] [place] [address] [id number] [place] [id number] Jan, [facility] [place] [address] [id number] [place] [address] December, [facility] [place] [address] [id number] [place] [id number] December, [facility] [place] [address] [id number] [place] [address] Nov, [facility] [place] [address] [id number] [place] [address] Nov, [facility] [place] [address] [id number] [place] [address] Nov, [facility] [place] [address] [id number] [place] 7449[address] Oct, [facility] [place] [address] [id number] [place] [address]408498[address] Oct, [facility] [place] [address] [id number] [place] 369368789 Oct, [facility] [place] [address] [id number] [place] 620[address]3048 Oct, [facility] [place] [address] [id number] [place] 309[address]3945 Sep, [facility] [place] [address] [id number] [place] 537736605 Sep, [facility] [place] [address] [id number] [place] 887194682 Sep, [facility] [place] [address] [id number] [place] 654556158 Sep, [facility] [place] [address] [id number] [place] 7298585[place] Sep, [facility] [place] [address] [id number] [place] 618876821 Aug, [facility] [place] [address] [id number] [place] 84[address]297[address] Jul, [facility] [place] [address] [id number] 427[address] Jul, [facility] [place] [address], [place] [id number] Jun, [facility] [place] [address], [place] [address] Jun, [facility] [place] [address], [place] [address] Jun, [facility] [place] [address], [place] 194076479 Jun, [facility] [place] [address], [place] 505648087 Jun, [facility] [place] [address], [place] 637890202 Jun, [facility] [place] [address], [place] [address] May, [facility] [place] [address], [place] [address] May, [facility] [place] [address], [place] [id number] May, [facility] [address] [place] [address] Apr, Bronchitis J40 [facility] [place] [address] [id number] Mar, [facility] [place] [address] [id number] Feb, [facility] [place] [address] [id number] Feb, [facility] [place] [address] [id number] Feb, Sore throat J02.9 and Ear pain, right H92.01 [facility] [place] [address] [id number] Jan, [facility] [place] [address] [id number] Jan, Viral syndrome B34.9 ; Other seasonal allergic rhinitis J30.2 and Post-nasal drip R09.82 [facility] [place] [address] [id number] Jan, [place] [id number] [place] [id number] Nov, [address] [id number] Oct, test positive Z32.01 [place] [address] [address] Oct, [place] [address] [address] Oct, [place] [address] [address] Sep, Kidney stones N20.0 [place] [address] [address] 18 Sep, 2015 [place] [address] [address] Sep, Pelvic pain R10.2 ; Left lower quadrant pain R10.32 ; Vaginal discharge N89.8 ; Routine screening for STI (sexually transmitted infection) Z11.3 ; Unprotected sexual intercourse Z72.51 ; Kidney stone N20.0 ; History of dyspareunia in female Z87.42 and Screening for malignant neoplasm of cervix Z12.4 [place] [address] [address] 12 Jun, 2015 Constipation, unspecified constipation t ype K59.00 ; Lower abdominal pain R10.30 ; Irregular menstrual cycle N92.6 ; Anxiety F41.9 ; Fatigue, unspecified type R53.83 and Tobacco abuse Z72.[address] [id number] Jun, [address] [id number] Jun, Nausea R11.[address] [id number] May, Alopecia L65.[address] [id number] May, [facility] [place] [address] [id number] [address] Apr, [facility] [place] [address] [id number] [address] Mar, [facility] [place] [id number] [place] [address], [place] [address] Mar, [facility] [place] [address] [id number] [id number] Mar, [facility] [address] [place] [address] Mar, test negative V72.41 [facility] [place] [address] [id number] [place] [address], [place] 475[address]8769 Mar, [facility] [place] [address] [id number] [place] [address], [place] 727754013 Mar, [facility] [place] [id number] [place] [address], [place] 480746534 Feb, [facility] [place] [id number] [place] [address], [place] 84[address]2370 Feb, [facility] [place] [id number] [place] [address], [place] [id number] Feb, [facility] [place] [id number] [place] [address], [place] [id number] Feb, [facility] [place] [id number] [place] [address], [place] [id number] Feb, [facility] [place] [id number] [place] [address], [place] [address]47141315 Feb, [facility] [place] [address], [place] [address]2947[place] Feb, [facility] [place] [id number] [place] [address], [place] [id number] Feb, [facility] [place] [id number] [place] [address], [place] 912431079 Feb, [facility] [place] [id number] [place] [address], [place] [id number] Feb, [facility] [place] [id number] [place] [address], [place] [id number] Feb, [facility] [place] [id number] [place] [address], [place] 563164858 Feb, [facility] [place] [address] [id number] [address]47163476 Jan, [facility] [place] [address] [id number] [place] 828544629 Jan, [facility] [place] [address] [place] [id number] [address]54773143 Jan, [facility] [address] [facility] [facility] [address] [id number] [facility] [address] Jan, Dental examination V72.2 [facility] [place] [address] [id number] [place] [address], [place] 36[address]7510 Jan, [facility] [place] [address] [id number] [place] [address], [place] 695835988 Jan, [facility] [place] [address] [id number] [facility] 155184990 Jan, [facility] [place] [address] [id number] [place] [address], [place] 984139486 Jan, [facility] [place] [address], [place] [address] Jan, [facility] [place] [address] [id number] [place] [address], [place] 802603481 15 Jan, 2015 [facility] [place] [address] [id number] [place] [address], [place] 527940066 14 Jan, 2015 [facility] [place] [address] [id number] [place] [address], [place] [id number] Jan, [facility] [place] [address] [id number] [place] [address], [place] [id number] Jan, [facility] [place] [address] [id number] [place] [address], [place] [id number] Jan, [facility] [place] [address] [id number] [place] [address], [place] [id number] Jan, [facility] [place] [address] [id number] [place] [address], [place] [id number] Jan, [facility] [place] [address] [id number] [place] [address], [place] [id number] Jan, [facility] [place] [address] [id number] [place] [address], [place] [id number] Jan, [facility] [place] [address], [place] [id number] Jan, 2014 [facility] [place] [address] [id number] [place] 617378959 Jan, [facility] [place] [address] [id number] [place] 199826440 Jan, 2014 [facility] [place] [address] [id number] [place] [id number] Jan, 2014 [facility] [place] [address] [id number] [place] 192895174 Jan, 2014 [facility] [place] [address] [id number] [place] 215968182 Jan, 2014 [facility] [place] [address] [id number] [place] [id number] Jan, [facility] [place] [address] [id number] [place] 764183644 Jan, [facility] [place] [address] [id number] [place] 092552443 Jan, [facility] [place] [address] [id number] [place] 147949705 Jan, [facility] [place] [address] [id number] [place] 398904531 December, [facility] [place] [address] [id number] [place] 048455623 December, [facility] [place] [address] [id number] [place] 610710173 December, [facility] [place] [address] [id number] [place] 176512586 December, [facility] [place] [address] [id number] [place] 376705954 December, [facility] [place] [address] [id number] [place] 090026134 December, [facility] [place] [address] [id number] [place] 715797202 December, [facility] [place] [address] [id number] [place] 533808156 December, [facility] [place] [address] [id number] [place] 522711708 December, [facility] [place] [address] [id number] [place] [id number] December, [facility] [place] [address] [id number] [place] [address] December, [facility] [place] [address] [id number] [place] 765623637 December, [facility] [place] [address] [id number] [place] [id number] December, [facility] [place] [address] [facility]07757[facility] [id number] December, [facility] [place] [address] [id number] [facility] [id number] Nov, [facility] [place] [address] [id number] [facility] 579340979 Nov, [facility] [place] [address] [facility]07757NE[facility] [id number] Nov, [facility] [place] [address] [facility]07757NE[facility] [id number] Nov, [facility] [id number] [place] [address] Nov, [facility] [id number] [place] [address] Nov, [facility] [address] [address] Sep, [facility] [address] [place] [address] Sep, [facility] [id number] [place] [address] Jul, [facility] [id number] [place] [address] Jul, [facility] [address] [address] Jul, [facility] [address] [place] [address] Jul, [facility] [id number] [place] [address] Jul, [facility] [address] [place] [address] Jul, [facility] [address] [facility] [id number] [place] [address] Jun, [facility] [address] [place] [address] Jun, [facility] [id number] [place] [address] Jun, [facility] [address] [place] [address] Jun, [facility] [address] [place] [address] May, [facility] [id number] [place] [address] May, [facility] [address] [place] [address] Feb, [facility] [id number] [place] [address] Feb, [facility] [address] [place] [address] Feb, [facility] [address] [place] [address] Feb, [facility] [address] [place] [address] Jan, [facility] [address] [place] [address] Jan, [facility] [id number] [place] [address] Jan, [facility] [address] [place] [address] Jan, [facility] [id number] [place] [address] December, [facility] [address] [place] [address] December, [facility] [address] [place] [address] December, [facility] [address] [id number] [place] [address] December, [facility] [address] [facility] [id number] [place] [address] December, [facility] [address] [place] [address] December, [facility] [address] [place] [address] December, [facility] [address] [id number] [place] [address] December, [facility] [address] [place] [address] December, [facility] [address] [place] [address] December, [facility] [id number] [place] [address] December, [facility] [id number] [place] [address] December, [facility] [id number] [place] [address] December, [facility] [address] [place] [address] December, [facility] [id number] [place] [address] December, [facility] [address] [facility] [id number] [place] [address] December, [facility] [address] [id number] [place] [address] December, [facility] [id number] [place] [address] Nov, [facility] [id number] [place] [address] Nov, [facility] [address] [id number] [place] [address] Nov, [facility] [id number] [place] [address] Nov, [facility] [id number] [place] [address] Nov, [facility] [id number] [place] [address] Nov, [facility] [id number] [place] [address] Nov, [facility] [id number] [place] [address] Nov, [facility] [id number] [place] [address] Nov, [facility] [id number] [place] [address] Nov, [facility] [id number] [place] [address] Nov, [facility] [id number] [place] [address] Nov, [facility] [id number] [place] [address] Nov, [facility] [id number] [place] [address] Nov, [facility] [id number] [place] [address] Nov, [facility] [id number] [place] [address] Nov, [facility] [id number] [place] [address] Oct, [facility] [id number] [place] [address] Oct, [facility] [id number] [place] [address] Oct, [facility] [id number] [place] [address] Oct, [facility] [id number] [place] [address] Oct, [facility] [id number] [place] [address] Oct, [facility] [id number] [place] [address] Oct, [facility] [id number] [place] [address] Oct, [facility] [id number] [place] [address] Sep, [facility] [id number] [place] [address] Sep, [facility] [id number] [place] [address] Sep, [facility] [id number] [place] [address] Sep, [facility] [id number] [place] [address] Sep, [facility] [id number] [place] [address] Sep, [facility] [id number] [place] [address] Sep, [facility] [id number] [place] [address] Sep, [facility] [id number] [place] [address] Sep, [facility] [id number] [place] [address] Sep, [facility] [id number] [place] [address] Aug, [facility] [id number] [place] [address] Aug, [facility] [id number] [place] [address] Jul, [facility] [id number] [place] [address] Jul, [facility] [id number] [place] [address] Jul, [facility] [id number] [place] [address] Jul, [facility] [id number] [place] [address] Jul, [facility] [id number] [place] [address] Jul, [facility] [id number] [place] [address] Jun, [facility] [id number] [place] [address] Jun, [facility] [id number] [place] [address] Jun, [facility] [id number] [place] [address] May, [facility] [id number] [place] [address] December, [facility] [id number] [place] [address] December, [facility] [id number] [place] [address] Jan, [facility] [id number] [place] [address] Jan, [facility] [id number] [place] [address] Jan, [facility] [id number] [place] [address] Jan, [facility] [id number] [place] [address] December, [facility] [address] [facility] [id number] [place] [id number] December, [facility] [id number] [place] [address] December, [facility] [id number] [place] [address] December, [facility] [id number] [place] [address] December, [facility] [id number] [place] [address] Oct, [facility] [id number] [place] [address] Jul, [facility] [id number] [place] [address] Jul, [facility] [id number] [place] [address] Jun, IMMUNIZATIONS No Known Immunizations SOCIAL HISTORY Never Assessed REASON FOR VISIT PLAN OF CARE VITAL SIGNS Height 63 in 2013-10-18 Weight 172.38 lbs 2013-10-18 Temperature 97.2 degrees Fahrenheit 2013-10-18 Heart Rate 74 bpm 2013-10-18 Respiratory Rate 18 2013-10-18 Blood pressure systolic 124 mmHg 2013-10-18 Blood pressure diastolic 78 mmHg 2013-10-18 MEDICATIONS No Known Medications RESULTS No Results PROCEDURES Procedure Date Ordered Result Body Site URINE-NO MICRO Oct 18, 2013 INSTRUCTIONS MEDICATIONS ADMINISTERED No Known Medications [...]
--- OUTSIDE RECORDS SUMMARY | 2019-11-24 00:46 | XMS REPORT ---
Author Author Vilma PEÑALOZA Organization [facility] Address [address] [place] [address] Care Team Providers Care Manager Discovery Name Role Phone WILMAN PEÑALOZA Unavailable PROBLEMS Type Condition ICD9-CM Code XSK12-PB Code Onset Dates Condition S tatus SNOMED Code Problem Elevated blood pressure reading without diagnosi s of hypertension 796.2 Active 803782382 Problem Irregular menstrual cycle N92.6 Acti ve 61029041 Problem Lower abdominal pain R10.30 Active 15682159 Problem Chronic gingivitis, plaque induced K05.10 Active 90300106 Problem Positive serology for syphilis A53.0 Active 633665018 Problem Constipation, unspecified constipation type K59.00 Active 48260656 Problem Fatigue, unspecified type R53.83 Acti ve 45783545 Problem Anxiety F41.9 Active 76635618 Problem Tobacco abuse Z72.0 Active [id number] ALLERGIES No Information ENCOUNTERS Encounter Location Date Diagnosis [facility] [address] [facility] [id number] [address] [place] [address] Jul, Pharyngitis J02.9 [facility] [address] [id number] [place] [address] May, Positive serology for syphilis A53.0 [facility] [address] [id number] [place] [address] May, [facility] [id number] [place] [address] Apr, [place] [address] [address] Apr, Concern about STD in female without diag nosis Z71.1 ; Needlestick injury due to hypodermic needle W46.0XXA ; Candidal vaginitis B37.3 and Trichomonas vaginitis A59.01 [facility] [address] [facility] [id number] [address] [place] [address] December, UTI symptoms R39.9 and Acute cystitis with hematuria N30.[address] [id number] Feb, Acute cystitis without hematuria N30.[address] [id number] Oct, [facility] [address] [facility] [place] [id number] Oct, Dental examination Z01.20 [facility] [id number] [place] [address] Oct, Dental examination Z01.20 and Chronic gi ngivitis, plaque induced K05.10 [facility] [address] [id number] [place] [address] Oct, Dental examination Z01.[address] [id number] Jun, [address] [id number] May, [address] [id number] May, [address] [id number] Apr, [address] [id number] Apr, [address] [id number] Feb, Encounter for test, result unknown Z32.[address] [id number] Feb, [address] [id number] Feb, [address] [id number] Feb, Encounter for test, result unknown Z32.00 [id number] [place] [address] Jan, [facility] [place] [address] [id number] [place] [address]993 Jan, [facility] [place] [address] [id number] [place] 9[address] Jan, [facility] [place] [address] [id number] [place] [id number] December, [facility] [place] [address] [id number] [place] [address] December, [facility] [place] [address] [id number] [place] [id number] Nov, [facility] [place] [address] [id number] [place] [address] Nov, [facility] [place] [address] [id number] [place] 334439359 Nov, [facility] [place] [address] [id number] [place] [id number] Oct, [facility] [place] [address] [id number] [place] [id number] Oct, [facility] [place] [address] [id number] [place] [id number] Oct, [facility] [place] [address] [id number] [place] 523186153 Oct, [facility] [place] [address] [id number] [place] [id number] Sep, [facility] [place] [address] [id number] [place] 843696835 Sep, [facility] [place] [address] [id number] [place] [id number] Sep, [facility] [place] [address] [id number] [place] [id number] Sep, [facility] [place] [address] [id number] [place] 563100421 Sep, [facility] [place] [address] [id number] [place] 610915329 Aug, [facility] [place] [address] [id number] [place] 834[address]1559 Jul, [facility] [place] [address] [id number] [place] [id number] Jul, [facility] [place] [address], [place] [address]15 Jun, [facility] [place] [address], [place] 370839257 Jun, [facility] [place] [address], [place] 059838218 Jun, [facility] [place] [address], [place] [id number] Jun, [facility] [place] [address], [place] [id number] Jun, [facility] [place] [address], [place] [id number] Jun, [facility] [place] [address], [place] 152644140 May, [facility] [place] [address], [place] [id number] May, [facility] [place] [address], [place] [id number] May, [facility] [address] [id number] [place] [address] Apr, Bronchitis J40 [facility] [place] [address] [id number] Mar, [facility] [place] [address] [id number] Feb, [facility] [place] [address] [id number] Feb, [facility] [place] [address] [id number] Feb, Sore throat J02.9 and Ear pain, right H92.01 [facility] [place] [address] [id number] Jan, [facility] [place] [address] [id number] Jan, Viral syndrome B34.9 ; Other seasonal allergic rhinitis J30.2 and Post-nasal drip R09.82 [facility] [place] [address] [id number] Jan, [place] [id number] [place] [id number] Nov, [address] [id number] Oct, test positive Z32.01 [place] [address] [address] Oct, [place] [address] [address] Oct, [place] [address] [address] Sep, Kidney stones N20.0 [place] [address] [address] 18 Sep, 2015 [place] [address] [address] Sep, Pelvic pain R10.2 ; Left lower quadrant pain R10.32 ; Vaginal discharge N89.8 ; Routine screening for STI (sexually transmitted infection) Z11.3 ; Unprotected sexual intercourse Z72.51 ; Kidney stone N20.0 ; History of dyspareunia in female Z87.42 and Screening for malignant neoplasm of cervix Z12.4 [place] [address] [address] 12 Jun, 2015 Constipation, unspecified constipation t ype K59.00 ; Lower abdominal pain R10.30 ; Irregular menstrual cycle N92.6 ; Anxiety F41.9 ; Fatigue, unspecified type R53.83 and Tobacco abuse Z72.[address] [id number] Jun, [address] [id number] Jun, Nausea R11.[address] [id number] May, Alopecia L65.[address] [id number] May, [facility] [place] [address] [id number] [place] [id number] Apr, [facility] [place] [address] [id number] [id number] Mar, [facility] [place] [id number] [place] [address], [place] [id number] Mar, [facility] [place] [address] [id number] [place] [id number] Mar, [facility] [address] [id number] [place] [address] Mar, test negative V72.41 [facility] [place] [id number] [place] [address], [place] [id number] Mar, [facility] [place] [id number] [place] [address], [place] [id number] Mar, [facility] [place] [id number] [place] [address], [place] [id number] Feb, [facility] [place] [id number] [place] [address], [place] [id number] Feb, [facility] [place] [id number] [place] [address], [place] [id number] Feb, [facility] [place] [id number] [place] [address], [place] [id number] Feb, [facility] [place] [id number] [place] [address], [place] [id number] Feb, [facility] [place] [id number] [place] [address], [place] [id number] Feb, [facility] [place] [address], [place] [id number] Feb, [facility] [place] [id number] [place] [address], [place] [id number] Feb, [facility] [place] [id number] [place] [address], [place] [id number] Feb, [facility] [place] [id number] [place] [address], [place] [id number] Feb, [facility] [place] [id number] [place] [address], [place] [id number] Feb, [facility] [place] [id number] [place] [address], [place] [id number] Feb, [facility] [place] [address] [id number] [place] [id number] Jan, [facility] [place] [address] [id number] [place] [id number] Jan, [facility] [place] [address] [place] [id number] 657752565 Jan, [facility] [address] [id number] [facility] [id number] Jan, Dental examination V72.2 [facility] [place] [address] [id number] [place] [address], [place] [id number] Jan, [facility] [place] [address] [id number] [place] [address], [place] [phone] Jan, [facility] [place] [address] [id number] [id number] Jan, [facility] [place] [address] [place] [place] [id number] [place] [address], [place] [id number] Jan, [facility] [place] [address], [place] [id number] Jan, [facility] [place] [address] [id number] [place] [address], [place] [id number] 15 Jan, 2015 [facility] [place] [address] [id number] [place] [address], [place] [id number] 14 Jan, 2015 [facility] [place] [address] [place] [id number] [place] [address], [place] [id number] Jan, [facility] [place] [address] [place] [id number] [place] [address], [place] [id number] Jan, [facility] [place] [address] [id number] [place] [address], [place] [id number] Jan, [facility] [place] [address] [id number] [place] [address], [place] [id number] Jan, [facility] [place] [address] [id number] [place] [address], [place] [phone] Jan, [facility] [place] [address] [place] [place] [id number] [place] [address], [place] [id number] Jan, [facility] [place] [address] [id number] [place] [address], [place] [id number] Jan, [facility] [place] [address], [place] [id number] Jan, 2014 [facility] [place] [address] [id number] [place] [id number] Jan, [facility] [place] [address] [id number] [place] [id number] Jan, 2014 [facility] [place] [address] [id number] [place] [id number] Jan, 2014 [facility] [place] [address] [id number] [place] [id number] Jan, 2014 [facility] [place] [address] [id number] [place] [id number] Jan, 2014 [facility] [place] [address] [id number] [place] [id number] Jan, [facility] [place] [address] [id number] [place] [id number] Jan, [facility] [place] [address] [id number] [place] [id number] Jan, [facility] [place] [address] [id number] [place] [id number] Jan, [facility] [place] [address] [id number] [place] [id number] December, [facility] [place] [address] [id number] [place] [id number] December, [facility] [place] [address] [id number] [place] [id number] December, [facility] [place] [address] [id number] [place] [id number] December, [facility] [place] [address] [id number] [place] [id number] December, [facility] [place] [address] [id number] [place] [id number] December, [facility] [place] [address] [id number] [place] [id number] December, [facility] [place] [address] [id number] [place] [phone] December, [facility] [place] [address] [id number] [place] [id number] December, [facility] [place] [address] [id number] [place] [id number] December, [facility] [place] [address] [id number] [place] [id number] December, [facility] [place] [address] [id number] [place] [id number] December, [facility] [place] [address] [id number] [place] [id number] December, [facility] [place] [address] [facility]07757[facility] [place] [id number] December, [facility] [place] [address] [id number] [facility] [id number] Nov, [facility] [place] [address] [id number] [facility] [id number] Nov, [facility] [place] [address] [facility]07757[facility] [place] [id number] Nov, [facility] [place] [address] [facility]07757[facility] [id number] Nov, [facility] [address] [id number] [place] [address] Nov, [facility] [address] [id number] [place] [address] Nov, [facility] [address] [address] Sep, [facility] [id number] [place] [address] Sep, [facility] [id number] [place] [address] Jul, [facility] [address] [id number] [place] [address] Jul, [facility] [address] [address] Jul, [facility] [id number] [place] [address] Jul, [facility] [address] [id number] [place] [address] Jul, [facility] [id number] [place] [address] Jul, [facility] [address] [facility] [id number] [place] [address] Jun, [facility] [address] [id number] [place] [address] Jun, [facility] [address] [id number] [place] [address] Jun, [facility] [address] [id number] [place] [address] Jun, [facility] [address] [id number] [place] [address] May, [facility] [address] [id number] [place] [address] May, [facility] [address] [id number] [place] [address] Feb, [facility] [address] [id number] [place] [address] Feb, [facility] [address] [id number] [place] [address] Feb, [facility] [address] [id number] [place] [address] Feb, [facility] [address] [id number] [place] [address] Jan, [facility] [address] [id number] [place] [address] Jan, [facility] [address] [id number] [place] [address] Jan, [facility] [address] [id number] [place] [address] Jan, [facility] [address] [id number] [place] [address] December, [facility] [address] [id number] [place] [address] December, [facility] [address] [id number] [place] [address] December, [facility] [address] [id number] [place] [address] December, [facility] [address] [facility] [id number] [place] [address] December, [facility] [address] [id number] [place] [address] December, [facility] [address] [id number] [place] [address] December, [facility] [address] [id number] [place] [address] December, [facility] [address] [id number] [place] [address] December, [facility] [address] [id number] [place] [address] December, [facility] [address] [id number] [place] [address] December, [facility] [address] [id number] [place] [address] December, [facility] [address] [id number] [place] [address] December, [facility] [address] [id number] [place] [address] December, [facility] [address] [id number] [place] [address] December, [facility] [address] [facility] [id number] [place] [address] December, [facility] [address] [id number] [place] [address] December, [facility] [address] [id number] [place] [address] Nov, [facility] [address] [id number] [place] [address] Nov, [facility] [address] [id number] [place] [address] Nov, [facility] [address] [id number] [place] [address] Nov, [facility] [address] [id number] [place] [address] Nov, [facility] [address] [id number] [place] [address] Nov, [facility] [address] [id number] [place] [address] Nov, [facility] [address] [id number] [place] [address] Nov, [facility] [address] [id number] [place] [address] Nov, [facility] [address] [id number] [place] [address] Nov, [facility] [address] [id number] [place] [address] Nov, [facility] [address] [id number] [place] [address] Nov, [facility] [address] [id number] [place] [address] Nov, [facility] [address] [id number] [place] [address] Nov, [facility] [address] [id number] [place] [address] Nov, [facility] [address] [id number] [place] [address] Nov, [facility] [address] [id number] [place] [address] Oct, [facility] [address] [id number] [place] [address] Oct, [facility] [address] [id number] [place] [address] Oct, [facility] [address] [id number] [place] [address] Oct, [facility] [address] [id number] [place] [address] Oct, [facility] [address] [id number] [place] [address] Oct, [facility] [address] [id number] [place] [address] Oct, [facility] [address] [id number] [place] [address] Oct, [facility] [address] [id number] [place] [address] Sep, [facility] [address] [id number] [place] [address] Sep, [facility] [address] [id number] [place] [address] Sep, [facility] [address] [id number] [place] [address] Sep, [facility] [address] [id number] [place] [address] Sep, [facility] [address] [id number] [place] [address] Sep, [facility] [address] [id number] [place] [address] Sep, [facility] [address] [id number] [place] [address] Sep, [facility] [address] [id number] [place] [address] Sep, [facility] [address] [id number] [place] [address] Sep, [facility] [address] [id number] [place] [address] Aug, [facility] [address] [id number] [place] [address] Aug, [facility] [address] [id number] [place] [address] Jul, [facility] [address] [id number] [place] [address] Jul, [facility] [address] [id number] [place] [address] Jul, [facility] [address] [id number] [place] [address] Jul, [facility] [address] [id number] [place] [address] Jul, [facility] [address] [id number] [place] [address] Jul, [facility] [id number] [place] [address] Jun, [facility] [address] [id number] [place] [address] Jun, [facility] [address] [id number] [place] [address] Jun, [facility] [address] [id number] [place] [address] May, [facility] [address] [id number] [place] [address] December, [facility] [address] [id number] [place] [address] December, [facility] [address] [id number] [place] [address] Jan, [facility] [address] [id number] [place] [address] Jan, [facility] [address] [id number] [place] [address] Jan, [facility] [address] [id number] [place] [address] Jan, [facility] [address] [id number] [place] [address] December, [facility] [address] [facility] [id number] [place] [id number] December, [facility] [address] [id number] [place] [address] December, [facility] [id number] [place] [address] December, [facility] [address] [id number] [place] [address] December, [facility] [id number] [place] [address] Oct, [facility] [address] [id number] [place] [address] Jul, [facility] [address] [id number] [place] [address] Jul, [facility] [address] [id number] [place] [address] Jun, IMMUNIZATIONS No Known Immunizations SOCIAL HISTORY [...]
--- OUTSIDE RECORDS SUMMARY | 2019-11-24 00:47 | XMS REPORT ---
Author Author Vilma PEÑALOZA Organization [facility] Address [address] [place] [address] Care Team Providers Care Wheel Buffer Name Role Phone WILMAN PEÑALOZA Unavailable PROBLEMS Type Condition ICD9-CM Code LLV50-HR Code Onset Dates Condition S tatus SNOMED Code Problem Elevated blood pressure reading without diagnosi s of hypertension 796.2 Active 725034807 Problem Irregular menstrual cycle N92.6 Acti ve 33633645 Problem Lower abdominal pain R10.30 Active 37401886 Problem Chronic gingivitis, plaque induced K05.10 Active 58030012 Problem Positive serology for syphilis A53.0 Active 404849377 Problem Constipation, unspecified constipation type K59.00 Active 63975915 Problem Fatigue, unspecified type R53.83 Acti ve 25714229 Problem Anxiety F41.9 Active 20182418 Problem Tobacco abuse Z72.0 Active 254203 05 ALLERGIES No Information ENCOUNTERS Encounter Location Date Diagnosis [facility] [address] [facility] [id number] [address] [place] [address] Jul, Pharyngitis J02.9 [facility] [id number] [place] [address] May, Positive serology for syphilis A53.0 [facility] [address] [id number] [place] [address] May, [facility] [id number] [place] [address] Apr, [place] [address] [address] Apr, Concern about STD in female without diag nosis Z71.1 ; Needlestick injury due to hypodermic needle W46.0XXA ; Candidal vaginitis B37.3 and Trichomonas vaginitis A59.01 [facility] [address] [facility] [id number] [address] [place] [address] December, UTI symptoms R39.9 and Acute cystitis with hematuria N30.[address] [id number] Feb, Acute cystitis without hematuria N30.[address] [id number] Oct, [facility] [address] [facility] [place] [id number] Oct, Dental examination Z01.20 [facility] [id number] [place] [address] Oct, Dental examination Z01.20 and Chronic gi ngivitis, plaque induced K05.10 [facility] [address] [id number] [place] [address] Oct, Dental examination Z01.[address] [id number] Jun, [address] [id number] May, [address] [id number] May, [address] [id number] Apr, [address] [id number] Apr, [address] [id number] Feb, Encounter for test, result unknown Z32.[address] [id number] Feb, [address] [id number] Feb, [address] [id number] Feb, Encounter for test, result unknown Z32.00 [id number] [place] [id number] Jan, [facility] [place] [address] [id number] [place] 801194874 Jan, [facility] [place] [address] [id number] [place] [address] Jan, [facility] [place] [address] [id number] [place] 326[address]7092 December, [facility] [place] [address] [id number] [place] 24[address] December, [facility] [place] [address] [id number] [place] 7988[address]645 Nov, [facility] [place] [address] [id number] [place] 65[address] Nov, [facility] [place] [address] [id number] [place] 847379669 Nov, [facility] [place] [address] [id number] [place] 318654817 Oct, [facility] [place] [address] [id number] [place] 367[address]7224 Oct, [facility] [place] [address] [id number] [place] 703275612 Oct, [facility] [place] [address] [id number] [place] [address]87[place] Oct, [facility] [place] [address] [id number] [place] 138321983 Sep, [facility] [place] [address] [id number] [place] 324807382 Sep, [facility] [place] [address] [id number] [place] 645184903 Sep, [facility] [place] [address] [id number] [place] 303685891 Sep, [facility] [place] [address] [id number] [place] 402414292 Sep, [facility] [place] [address] [id number] [place] 603209181 Aug, [facility] [place] [address] [id number] [place] 425597877 Jul, [facility] [place] [address] [id number] [address] Jul, [facility] [place] [address], [place] [id number] Jun, [facility] [place] [address], [place] 901506537 Jun, [facility] [place] [address], [place] 647685801 Jun, [facility] [place] [address], [place] 506228414 Jun, [facility] [place] [address], [place] 183929838 Jun, [facility] [place] [address], [place] [id number] Jun, [facility] [place] [address], [place] [id number] May, [facility] [place] [address], [place] 035547997 May, [facility] [place] [address], [place] [id number] May, [facility] [address] [facility] [place] [address] Apr, Bronchitis J40 [facility] [place] [address] [id number] Mar, [facility] [place] [address] [id number] Feb, [facility] [place] [address] [id number] Feb, [facility] [place] [address] [id number] Feb, Sore throat J02.9 and Ear pain, right H92.01 [facility] [place] [address] [id number] Jan, [facility] [place] [address] [id number] Jan, Viral syndrome B34.9 ; Other seasonal allergic rhinitis J30.2 and Post-nasal drip R09.82 [facility] [place] [address] [id number] Jan, [place] [id number] [place] [id number] Nov, [address] [id number] Oct, test positive Z32.01 [place] [address] [address] Oct, [place] [address] [address] Oct, [place] [address] [address] Sep, Kidney stones N20.0 [place] [address] [address] 18 Sep, 2015 [place] [address] [address] Sep, Pelvic pain R10.2 ; Left lower quadrant pain R10.32 ; Vaginal discharge N89.8 ; Routine screening for STI (sexually transmitted infection) Z11.3 ; Unprotected sexual intercourse Z72.51 ; Kidney stone N20.0 ; History of dyspareunia in female Z87.42 and Screening for malignant neoplasm of cervix Z12.4 [place] [address] [address] 12 Jun, 2015 Constipation, unspecified constipation t ype K59.00 ; Lower abdominal pain R10.30 ; Irregular menstrual cycle N92.6 ; Anxiety F41.9 ; Fatigue, unspecified type R53.83 and Tobacco abuse Z72.[address] [id number] Jun, [address] [id number] Jun, Nausea R11.[address] [id number] May, Alopecia L65.[address] [id number] May, [facility] [place] [address] [id number] [address] Apr, [facility] [place] [address] [id number] [address] Mar, [facility] [place] [id number] [place] [address], [place] 48[address]84 Mar, [facility] [place] [address] [id number] [address]26[address] Mar, [facility] [address] [facility] [place] [address] Mar, test negative V72.41 [facility] [place] [id number] [place] [address], [place] 137021769 Mar, [facility] [place] [id number] [place] [address], [place] 781574929 Mar, [facility] [place] [id number] [place] [address], [place] [id number] Feb, [facility] [place] [id number] [place] [address], [place] [id number] Feb, [facility] [place] [id number] [place] [address], [place] 099300541 Feb, [facility] [place] [id number] [place] [address], [place] [id number] Feb, [facility] [place] [id number] [place] [address], [place] [id number] Feb, [facility] [place] [id number] [place] [address], [place] [id number] Feb, [facility] [place] [address], [place] [id number] Feb, [facility] [place] [id number] [place] [address], [place] 424722457 Feb, [facility] [place] [id number] [place] [address], [place] 395227836 Feb, [facility] [place] [id number] [place] [address], [place] [id number] Feb, [facility] [place] [id number] [place] [address], [place] [id number] Feb, [facility] [place] [id number] [place] [address], [place] 481147987 Feb, [facility] [place] [address] [id number] [facility] 544236894 Jan, [facility] [place] [address] [id number] [place] 138949462 Jan, [facility] [place] [address] [place] [id number] [id number] Jan, [facility] [place] [address] [id number] [facility] [place] 325482059 Jan, Dental examination V72.2 [facility] [place] [address] [id number] [place] [address], [place] [id number] Jan, [facility] [place] [address] [id number] [place] [address], [place] [id number] Jan, [facility] [place] [address] [id number] [id number] Jan, [facility] [place] [address] [id number] [place] [address], [place] 285327811 Jan, [facility] [place] [address], [place] 795795392 Jan, [facility] [place] [address] [id number] [place] [address], [place] [id number] 15 Jan, 2015 [facility] [place] [address] [id number] [place] [address], [place] [id number] 14 Jan, 2015 [facility] [place] [address] [id number] [place] [address], [place] [id number] Jan, [facility] [place] [address] [id number] [place] [address], [place] [id number] Jan, [facility] [place] [address] [id number] [place] [address], [place] [id number] Jan, [facility] [place] [address] [id number] [place] [address], [place] [id number] Jan, [facility] [place] [address] [id number] [place] [address], [place] 522551785 Jan, [facility] [place] [address] [id number] [place] [address], DC [id number] Jan, [facility] [place] [address] [id number] [place] [address], [place] [id number] Jan, [facility] [place] [address], [place] [id number] Jan, 2014 [facility] [place] [address] [id number] [place] [id number] Jan, [facility] [place] [address] [id number] [place] [id number] Jan, 2014 [facility] [place] [address] [id number] [place] [id number] Jan, 2014 [facility] [place] [address] [id number] [place] 529248972 Jan, 2014 [facility] [place] [address] [id number] [place] 694657965 Jan, 2014 [facility] [place] [address] [id number] [place] 359074800 Jan, [facility] [place] [address] [id number] [place] [id number] Jan, [facility] [place] [address] [id number] [place] 045016771 Jan, [facility] [place] [address] [id number] [place] 695327589 Jan, [facility] [place] [address] [id number] [place] 751056991 December, [facility] [place] [address] [id number] [place], [place] [id number] December, [facility] [place] [address] [id number] [place], [place] 476914333 December, [facility] [place] [address] [id number] [place], [place] 802232795 December, [facility] [place] [address] [id number] [place] [id number] December, [facility] [place] [address] [id number] [place], [place] 132441558 December, [facility] [place] [address] [id number] [place] [id number] December, [facility] [place] [address] [id number] [place] 586269282 December, [facility] [place] [address] [id number] [place] [id number] December, [facility] [place] [address] [id number] [place], [place] 688247516 December, [facility] [place] [address] [id number] [place] [id number] December, [facility] [place] [address] [id number] [place] 312995799 December, [facility] [place] [address] [id number] [place] [id number] December, [facility] [place] [address] [facility]07757[facility] 316120810 December, [facility] [place] [address] [id number] [id number] Nov, [facility] [place] [address] [id number] [id number] Nov, [facility] [place] [address] [facility]07757[facility] 135171647 Nov, [facility] [place] [address] [facility]07757[facility] [id number] Nov, [facility] [id number] [place] [address] Nov, [facility] [id number] [place] [address] Nov, [facility] [address] [address] Sep, [facility] [id number] [place] [address] Sep, [facility] [id number] [place] [address] Jul, [facility] [id number] [place] [address] Jul, [facility] [address] [address] Jul, [facility] [id number] [place] [address] Jul, [facility] [id number] [place] [address] Jul, [facility] [id number] [place] [address] Jul, [facility] [address] [facility] [id number] [place] [address] Jun, [facility] [address] [id number] [place] [address] Jun, [facility] [address] [id number] [place] [address] Jun, [facility] [address] [id number] [place] [address] Jun, [facility] [address] [id number] [place] [address] May, [facility] [address] [id number] [place] [address] May, [facility] [address] [id number] [place] [address] Feb, [facility] [address] [id number] [place] [address] Feb, [facility] [address] [id number] [place] [address] Feb, [facility] [address] [id number] [place] [address] Feb, [facility] [address] [id number] [place] [address] Jan, [facility] [address] [id number] [place] [address] Jan, [facility] [address] [id number] [place] [address] Jan, [facility] [address] [id number] [place] [address] Jan, [facility] [address] [id number] [place] [address] December, [facility] [address] [id number] [place] [address] December, [facility] [address] [id number] [place] [address] December, [facility] [address] [id number] [place] [address] December, [facility] [address] [facility] [id number] [place] [address] December, [facility] [address] [id number] [place] [address] December, [facility] [address] [id number] [place] [address] December, [facility] [address] [id number] [place] [address] December, [facility] [address] [id number] [place] [address] December, [facility] [address] [id number] [place] [address] December, [facility] [address] [id number] [place] [address] December, [facility] [address] [id number] [place] [address] December, [facility] [address] [id number] [place] [address] December, [facility] [address] [id number] [place] [address] December, [facility] [address] [id number] [place] [address] December, [facility] [address] [facility] [id number] [place] [address] December, [facility] [address] [id number] [place] [address] December, [facility] [address] [id number] [place] [address] Nov, [facility] [address] [id number] [place] [address] Nov, [facility] [address] [id number] [place] [address] Nov, [facility] [address] [id number] [place] [address] Nov, [facility] [address] [id number] [place] [address] Nov, [facility] [address] [id number] [place] [address] Nov, [facility] [address] [id number] [place] [address] Nov, [facility] [address] [id number] [place] [address] Nov, [facility] [address] [id number] [place] [address] Nov, [facility] [address] [id number] [place] [address] Nov, [facility] [address] [id number] [place] [address] Nov, [facility] [address] [id number] [place] [address] Nov, [facility] [address] [id number] [place] [address] Nov, [facility] [address] [id number] [place] [address] Nov, [facility] [address] [id number] [place] [address] Nov, [facility] [address] [id number] [place] [address] Nov, [facility] [address] [id number] [place] [address] Oct, [facility] [address] [id number] [place] [address] Oct, [facility] [address] [id number] [place] [address] Oct, [facility] [address] [id number] [place] [address] Oct, [facility] [address] [id number] [place] [address] Oct, [facility] [address] [id number] [place] [address] Oct, [facility] [address] [id number] [place] [address] Oct, [facility] [address] [id number] [place] [address] Oct, [facility] [address] [id number] [place] [address] Sep, [facility] [address] [id number] [place] [address] Sep, [facility] [address] [id number] [place] [address] Sep, [facility] [address] [id number] [place] [address] Sep, [facility] [address] [id number] [place] [address] Sep, [facility] [address] [id number] [place] [address] Sep, [facility] [address] [id number] [place] [address] Sep, [facility] [address] [id number] [place] [address] Sep, [facility] [address] [id number] [place] [address] Sep, [facility] [address] [id number] [place] [address] Sep, [facility] [address] [id number] [place] [address] Aug, [facility] [address] [id number] [place] [address] Aug, [facility] [address] [id number] [place] [address] Jul, [facility] [address] [id number] [place] [address] Jul, [facility] [address] [id number] [place] [address] Jul, [facility] [address] [id number] [place] [address] Jul, [facility] [address] [id number] [place] [address] Jul, [facility] [address] [id number] [place] [address] Jul, [facility] [id number] [place] [address] Jun, [facility] [address] [id number] [place] [address] Jun, [facility] [address] [id number] [place] [address] Jun, [facility] [address] [id number] [place] [address] May, [facility] [address] [id number] [place] [address] December, [facility] [address] [id number] [place] [address] December, [facility] [address] [id number] [place] [address] Jan, [facility] [address] [id number] [place] [address] Jan, [facility] [address] [id number] [place] [address] Jan, [facility] [address] [id number] [place] [address] Jan, [facility] [address] [id number] [place] [address] December, [facility] [address] [facility] [id number] [place] [id number] December, [facility] [address] [id number] [place] [address] December, [facility] [id number] [place] [address] December, [facility] [address] [id number] [place] [address] December, [facility] [id number] [place] [address] Oct, [facility] [address] [id number] [place] [address] Jul, [facility] [address] [id number] [place] [address] Jul, [facility] [address] [id number] [place] [address] Jun, IMMUNIZATIONS No Known Immunizations SOCIAL HISTORY [...]
--- OUTSIDE RECORDS SUMMARY | 2019-11-24 00:47 | XMS REPORT ---
Author Author Vilma REBOLLAR Organization [facility] Address [address] [place] [address] Care Team Providers Care Oracle Analyst Name Role Phone ANGELIA REBOLLAR Unavailable PROBLEMS Type Condition ICD9-CM Code IKV02-AJ Code Onset Dates Condition S tatus SNOMED Code Problem Elevated blood pressure reading without diagnosi s of hypertension 796.2 Active 336835277 Problem Irregular menstrual cycle N92.6 Acti ve 54117117 Problem Lower abdominal pain R10.30 Active 56756751 Problem Chronic gingivitis, plaque induced K05.10 Active 63156262 Problem Positive serology for syphilis A53.0 Active 037929995 Problem Constipation, unspecified constipation type K59.00 Active 63550073 Problem Fatigue, unspecified type R53.83 Acti ve 56118388 Problem Anxiety F41.9 Active 78193646 Problem Tobacco abuse Z72.0 Active [id number] ALLERGIES No Information ENCOUNTERS Encounter Location Date Diagnosis [facility] [address] [facility] [id number] [address] [place] [address] Jul, Pharyngitis J02.9 [facility] [id number] [place] [address] May, Positive serology for syphilis A53.0 [facility] [id number] [place] [address] May, [facility] [id number] [place] [address] Apr, [place] [address] [address] Apr, Concern about STD in female without diag nosis Z71.1 ; Needlestick injury due to hypodermic needle W46.0XXA ; Candidal vaginitis B37.3 and Trichomonas vaginitis A59.01 [facility] [address] [facility] [id number] [address] [place] [address] December, UTI symptoms R39.9 and Acute cystitis with hematuria N30.01 [address] [id number] [place] [id number] Feb, Acute cystitis without hematuria N30.[address] [id number] Oct, [facility] [address] [facility] [place] [id number] Oct, Dental examination Z01.20 [facility] [address] [address] Oct, Dental examination Z01.20 and Chronic gi ngivitis, plaque induced K05.10 [facility] [address] [id number] [place] [address] Oct, Dental examination Z01.[address] [id number] Jun, [address] [id number] May, [address] [id number] May, [address] [id number] Apr, [address] [id number] Apr, [address] [id number] Feb, Encounter for test, result unknown Z32.[address] [id number] Feb, [address] [id number] Feb, [address] [id number] Feb, Encounter for test, result unknown Z32.00 [address] [id number] [place] [address] Jan, [facility] [place] [address] [id number] [place] [id number] Jan, [facility] [place] [address] [id number] [place] [address] Jan, [facility] [place] [address] [id number] [place] 036245693 December, [facility] [place] [address] [id number] [place] [id number] December, [facility] [place] [address] [id number] [place] [id number] Nov, [facility] [place] [address] [id number] [place] [id number] Nov, [facility] [place] [address] [id number] [place] [id number] Nov, [facility] [place] [address] [id number] [place] [address] Oct, [facility] [place] [address] [id number] [place] [id number] Oct, [facility] [place] [address] [id number] [place] [id number] Oct, [facility] [place] [address] [id number] [place] 218044285 Oct, [facility] [place] [address] [id number] [place] [id number] Sep, [facility] [place] [address] [id number] [place] 349623886 Sep, [facility] [place] [address] [id number] [place] [id number] Sep, [facility] [place] [address] [id number] [place] [id number] Sep, [facility] [place] [address] [id number] [place] 989253728 Sep, [facility] [place] [address] [id number] [place] [id number] Aug, [facility] [place] [address] [id number] [place] [id number] Jul, [facility] [place] [address] [id number] Jul, [facility] [place] [address] [id number] Jun, [facility] [place] [address] [id number] Jun, [facility] [place] [address], [place] [id number] Jun, [facility] [place] [address], [place] [id number] Jun, [facility] [place] [address], [place] [id number] Jun, [facility] [place] [address], [place] [address]1021 Jun, [facility] [place] [address], [place] [id number] May, [facility] [place] [address] [id number] May, [facility] [place] [address], [place] [address] May[facility] [address] [facility] [place] [address] Apr, Bronchitis J40 [facility] [place] [address] [id number] Mar, [facility] [place] [address] [id number] Feb, [facility] [place] [address] [id number] Feb, [facility] [place] [address] [id number] Feb, Sore throat J02.9 and Ear pain, right H92.01 [facility] [place] [address] [id number] Jan, [facility] [place] [address] [id number] Jan, Viral syndrome B34.9 ; Other seasonal allergic rhinitis J30.2 and Post-nasal drip R09.82 [facility] [place] [address] [id number] Jan, [place] [id number] [place] [id number] Nov, [address] [id number] Oct, test positive Z32.01 [place] [address] [address] Oct, [place] [address] [address] Oct, [place] [address] [address] Sep, Kidney stones N20.0 [place] [address] [address] 18 Sep, 2015 [place] [address] [address] Sep, Pelvic pain R10.2 ; Left lower quadrant pain R10.32 ; Vaginal discharge N89.8 ; Routine screening for STI (sexually transmitted infection) Z11.3 ; Unprotected sexual intercourse Z72.51 ; Kidney stone N20.0 ; History of dyspareunia in female Z87.42 and Screening for malignant neoplasm of cervix Z12.4 [place] [address] [address] Jun, Constipation, unspecified constipation t ype K59.00 ; Lower abdominal pain R10.30 ; Irregular menstrual cycle N92.6 ; Anxiety F41.9 ; Fatigue, unspecified type R53.83 and Tobacco abuse Z72.[address] [id number] Jun, [address] [id number] Jun, Nausea R11.[address] [id number] May, Alopecia L65.[address] [id number] May, [address] [id number] [id number] Apr, [facility] [place] [address] [id number] [id number] Mar, [facility] [place] [address] [id number] [id number] Mar, [facility] [place] [address] [id number] [id number] Mar, [facility] [address] [facility] [place] [address] Mar, test negative V72.41 [facility] [place] [address] [id number] [id number] Mar, [facility] [place] [id number] [place] [address], [place] [id number] Mar, [facility] [place] [address] [id number] [address]76[place] Feb, [facility] [place] [id number] [place] [address], [place] [id number] Feb, [facility] [place] [id number] [place] [address], [place] [id number] Feb, [facility] [place] [address] [id number] [id number] Feb, [facility] [place] [address] [id number] [id number] Feb, [facility] [place] [id number] [place] [address], [place] [id number] Feb, [facility] [place] [id number] [place] [address], [place] [id number] Feb, [facility] [place] [id number] [place] [address], [place] [id number] Feb, [facility] [place] [id number] [place] [address], [place] [id number] Feb, [facility] [place] [id number] [place] [address], [place] [id number] Feb, [facility] [place] [id number] [place] [address], [place] [id number] Feb, [facility] [place] [id number] [place] [address], [place] [id number] Feb, [facility] [place] [address] [id number] [place] [id number] Jan, [facility] [place] [address] [id number] [place] [id number] Jan, [facility] [place] [address] [id number] [id number] Jan, [facility] [address] [id number] [facility] [id number] Jan, Dental examination V72.2 [facility] [place] [address] [id number] [place] [id number] Jan, [facility] [place] [address] [id number] [place] 128003460 Jan, [facility] [place] [address] [id number] [id number] Jan, [facility] [place] [address] [id number] 193449001 Jan, [facility] [place] [address] [id number] [place] [address], [place] [id number] Jan, [facility] [place] [address] [id number] [id number] Jan, [facility] [place] [address] [id number] [place] [address], [place] [id number] 14 Jan, 2015 [facility] [place] [address] [id number] [id number] Jan, [facility] [place] [address] [id number] [place] [address], [place] [id number] Jan, [facility] [place] [address] [id number] [place] [address], [place] [id number] Jan, [facility] [place] [address] [id number] [id number] Jan, [facility] [place] [address] [id number] [place] [id number] Jan, [facility] [place] [address] [id number] [place] [address], [place] [id number] Jan, [facility] [place] [address] [id number] [place] [address], [place] [id number] Jan, [facility] [place] [address] [id number] [place] [address], [place] [id number] Jan, [facility] [place] [address] [id number] [place] [id number] Jan, [facility] [place] [address] [id number] [place] [id number] Jan, [facility] [place] [address] [id number] [place] [id number] Jan, 2014 [facility] [place] [address] [id number] [place] [id number] Jan, 2014 [facility] [place] [address] [id number] [place] [id number] Jan, [facility] [place] [address] [id number] [place] [id number] Jan, [facility] [place] [address] [id number] [place] [id number] Jan, [facility] [place] [address] [id number] [place] [id number] Jan, [facility] [place] [address] [id number] [place] [id number] Jan, [facility] [place] [address] [id number] [place] [id number] December, [facility] [place] [address] [id number] [place] [id number] December, [facility] [place] [address] [id number] [place] [id number] December, [facility] [place] [address] [id number] [place] [id number] December, [facility] [place] [address] [id number] [place] [id number] December, [facility] [place] [address] [id number] [place] [id number] December, [facility] [place] [address] [id number] [place] [id number] December, [facility] [place] [address] [id number] [place] [id number] December, [facility] [place] [address] [id number] [place] [id number] December, [facility] [place] [address] [id number] [place] [id number] December, [facility] [place] [address] [id number] [place] [id number] December, [facility] [place] [address] [id number] [place] [id number] December, [facility] [place] [address] [id number] [place] [id number] December, [facility] [place] [address] [id number] 994013550 December, [facility] [place] [address] [id number] [id number] Nov, [facility] [place] [address] [id number] [id number] Nov, [facility] [place] [address] [facility]757[facility] [id number] Nov, [facility] [place] [address] [facility]757[facility] [id number] Nov, [facility] [address] [place] [address] Nov, [facility] [address] [place] [address] Nov, [facility] [address] [address] Sep, [facility] [address] [address] Sep, [facility] [id number] [place] [address] Jul, [facility] [id number] [place] [address] Jul, [facility] [address] [address] Jul, [facility] [address] [place] [address] Jul, [facility] [id number] [place] [address] Jul, [facility] [address] [address] Jul, [facility] [address] [facility] [id number] [place] [address] Jun, [facility] [address] [facility] [id number] [place] [address] Jun, [facility] [address] [id number] [place] [address] Jun, [facility] [address] [id number] [place] [address] Jun, [facility] [address] [facility] [id number] [place] [address] May, [facility] [address] [id number] [place] [address] May, [facility] [address] [id number] [place] [address] Feb, [facility] [address] [id number] [place] [address] Feb, [facility] [address] [id number] [place] [address] Feb, [facility] [address] [id number] [place] [address] Feb, [facility] [address] [id number] [place] [address] Jan, [facility] [address] [id number] [place] [address] Jan, [facility] [address] [id number] [place] [address] Jan, [facility] [address] [id number] [place] [address] Jan, [facility] [address] [id number] [place] [address] December, [facility] [address] [id number] [place] [address] December, [facility] [address] [id number] [place] [address] December, [facility] [address] [id number] [place] [address] December, [facility] [address] [id number] [place] [address] December, [facility] [address] [id number] [place] [address] December, [facility] [address] [id number] [place] [address] December, [facility] [address] [id number] [place] [address] December, [facility] [address] [id number] [place] [address] December, [facility] [address] [id number] [place] [address] December, [facility] [address] [id number] [place] [address] December, [facility] [address] [id number] [place] [address] December, [facility] [address] [id number] [place] [address] December, [facility] [address] [id number] [place] [address] December, [facility] [address] [id number] [place] [address] December, [facility] [address] [id number] [place] [address] December, [facility] [address] [id number] [place] [address] December, [facility] [address] [id number] [place] [address] Nov, [facility] [address] [id number] [place] [address] Nov, [facility] [address] [id number] [place] [address] Nov, [facility] [address] [id number] [place] [address] Nov, [facility] [address] [id number] [place] [address] Nov, [facility] [address] [id number] [place] [address] Nov, [facility] [address] [id number] [place] [address] Nov, [facility] [address] [id number] [place] [address] Nov, [facility] [address] [id number] [place] [address] Nov, [facility] [address] [id number] [place] [address] Nov, [facility] [address] [id number] [place] [address] Nov, [facility] [address] [id number] [place] [address] Nov, [facility] [address] [id number] [place] [address] Nov, [facility] [address] [id number] [place] [address] Nov, [facility] [address] [id number] [place] [address] Nov, [facility] [address] [id number] [place] [address] Nov, [facility] [address] [id number] [place] [address] Oct, [facility] [address] [id number] [place] [address] Oct, [facility] [address] [id number] [place] [address] Oct, [facility] [address] [id number] [place] [address] Oct, [facility] [address] [id number] [place] [address] Oct, [facility] [address] [id number] [place] [address] Oct, [facility] [address] [id number] [place] [address] Oct, [facility] [address] [id number] [place] [address] Oct, [facility] [address] [id number] [place] [address] Sep, [facility] [address] [id number] [place] [address] Sep, [facility] [address] [id number] [place] [address] Sep, [facility] [address] [id number] [place] [address] Sep, [facility] [address] [id number] [place] [address] Sep, [facility] [address] [id number] [place] [address] Sep, [facility] [address] [id number] [place] [address] Sep, [facility] [address] [id number] [place] [address] Sep, [facility] [address] [id number] [place] [address] Sep, [facility] [address] [id number] [place] [address] Sep, [facility] [address] [id number] [place] [address] Aug, [facility] [address] [id number] [place] [address] Aug, [facility] [address] [id number] [place] [address] Jul, [facility] [address] [id number] [place] [address] Jul, [facility] [address] [id number] [place] [address] Jul, [facility] [address] [id number] [place] [address] Jul, [facility] [address] [id number] [place] [address] Jul, [facility] [address] [id number] [place] [address] Jul, [facility] [id number] [place] [address] Jun, [facility] [address] [id number] [place] [address] Jun, [facility] [address] [id number] [place] [address] Jun, [facility] [address] [id number] [place] [address] May, [facility] [address] [id number] [place] [address] December, [facility] [address] [id number] [place] [address] December, [facility] [address] [id number] [place] [address] Jan, [facility] [id number] [place] [address] Jan, [facility] [address] [id number] [place] [address] Jan, [facility] [address] [id number] [place] [address] Jan, [facility] [address] [id number] [place] [address] December, [facility] [address] [id number] [place] [id number] December, [facility] [address] [id number] [place] [address] December, [facility] [id number] [place] [address] December, [facility] [address] [id number] [place] [address] December, [facility] [id number] [place] [address] Oct, [facility] [address] [id number] [place] [address] Jul, [facility] [id number] [place] [address] Jul, [facility] [address] [id number] [place] [address] Jun, IMMUNIZATIONS No Known Immunizations SOCIAL HISTORY [...]
--- OUTSIDE RECORDS SUMMARY | 2019-11-24 00:47 | XMS REPORT ---
Author Author Vilma REBOLLAR Organization [facility] Address [address] [place] [address] Care Team Providers Care Director Technical Name Role Phone ANGELIA REBOLLAR Unavailable PROBLEMS Type Condition ICD9-CM Code VWV27-XG Code Onset Dates Condition S tatus SNOMED Code Problem Elevated blood pressure reading without diagnosi s of hypertension 796.2 Active 016187813 Problem Irregular menstrual cycle N92.6 Acti ve 32915122 Problem Lower abdominal pain R10.30 Active 86568144 Problem Chronic gingivitis, plaque induced K05.10 Active 51131794 Problem Positive serology for syphilis A53.0 Active 646116706 Problem Constipation, unspecified constipation type K59.00 Active 57030028 Problem Fatigue, unspecified type R53.83 Acti ve 13338096 Problem Anxiety F41.9 Active 02570580 Problem Tobacco abuse Z72.0 Active 562296 05 ALLERGIES No Information ENCOUNTERS Encounter Location Date Diagnosis [facility] [address] [facility] [id number] [address] [place] [address] Jul, Pharyngitis J02.9 [facility] [id number] [place] [address] May, Positive serology for syphilis A53.0 [facility] [id number] [place] [address] May, [facility] [id number] [place] [address] Apr, [place] [address] [address] Apr, Concern about STD in female without diag nosis Z71.1 ; Needlestick injury due to hypodermic needle W46.0XXA ; Candidal vaginitis B37.3 and Trichomonas vaginitis A59.01 [facility] [address] [facility] [id number] [address] [place] [address] December, UTI symptoms R39.9 and Acute cystitis with hematuria N30.01 [place] [id number] [place] [id number] Feb, Acute cystitis without hematuria N30.[address] [id number] Oct, [facility] [address] [facility] [place] [id number] Oct, Dental examination Z01.20 [facility] [address] [address] Oct, Dental examination Z01.20 and Chronic gi ngivitis, plaque induced K05.10 [facility] [id number] [place] [address] Oct, Dental examination Z01.[address] [id number] Jun, [address] [id number] May, [address] [id number] May, [address] [id number] Apr, [address] [id number] Apr, [address] [id number] Feb, Encounter for test, result unknown Z32.[address] [id number] Feb, [address] [id number] Feb, [address] [id number] Feb, Encounter for test, result unknown Z32.00 [place] [address] [id number] [place] [address] Jan, [facility] [place] [address] [id number] [place] [address] Jan, [facility] [place] [address] [id number] [place] [address] Jan, [facility] [place] [address] [id number] [place] 661[address]894 December, [facility] [place] [address] [id number] [place] [address] December, [facility] [place] [address] [id number] [place] 770[address]383 Nov, [facility] [place] [address] [id number] [place] 118529390 Nov, [facility] [place] [address] [id number] [place] 882[address] Nov, [facility] [place] [address] [id number] [place] [address] Oct, [facility] [place] [address] [id number] [place] [address] Oct, [facility] [place] [address] [id number] [place] [address]88[address] Oct, [facility] [place] [address] [id number] [place] [address] Oct, [facility] [place] [address] [id number] [place] 168[address] Sep, [facility] [place] [address] [id number] [place] 29[address] Sep, [facility] [place] [address] [id number] [place] 504755357 Sep, [facility] [place] [address] [id number] [place] 5727[address] Sep, [facility] [place] [address] [id number] [place] [address] Sep, [facility] [place] [address] [id number] [place] 848[address]37[address] Aug, [facility] [place] [address] [id number] [place] 34[address]37[address] Jul, [facility] [place] [address] [id number] 609[address] Jul, [facility] [place] [address] [address] Jun, [facility] [place] [address] [address] Jun, [facility] [place] [address] [address]47[address]96[address] Jun, [facility] [place] [address], [place] 2168[address] Jun, [facility] [place] [address] [address]286[address] Jun, [facility] [place] [address] [address]241277 Jun, [facility] [place] [address] [address] May, [facility] [place] [address] [id number] May, [facility] [place] [address] [address] May, [facility] [place] [address] [id number] [place] [address] Apr, Bronchitis J40 [facility] [place] [address] [id number] Mar, [facility] [place] [address] [id number] Feb, [facility] [place] [address] [id number] Feb, [facility] [place] [address] [id number] Feb, Sore throat J02.9 and Ear pain, right H92.01 [facility] [place] [address] [id number] Jan, [facility] [place] [address] [id number] Jan, Viral syndrome B34.9 ; Other seasonal allergic rhinitis J30.2 and Post-nasal drip R09.82 [facility] [place] [address] [id number] Jan, [place] [id number] [place] [id number] Nov, [address] [id number] Oct, test positive Z32.01 [place] [address] [address] Oct, [place] [address] [address] Oct, [place] [address] [address] Sep, Kidney stones N20.0 [place] [address] [address] 18 Sep, 2015 [place] [address] [address] Sep, Pelvic pain R10.2 ; Left lower quadrant pain R10.32 ; Vaginal discharge N89.8 ; Routine screening for STI (sexually transmitted infection) Z11.3 ; Unprotected sexual intercourse Z72.51 ; Kidney stone N20.0 ; History of dyspareunia in female Z87.42 and Screening for malignant neoplasm of cervix Z12.4 [place] [address] [address] Jun, Constipation, unspecified constipation t ype K59.00 ; Lower abdominal pain R10.30 ; Irregular menstrual cycle N92.6 ; Anxiety F41.9 ; Fatigue, unspecified type R53.83 and Tobacco abuse Z72.[address] [id number] Jun, [address] [id number] Jun, Nausea R11.[address] [id number] May, Alopecia L65.[address] [id number] May, [address] [id number] 1798[place] Apr, [facility] [place] [address] [id number] 235[address] Mar, [facility] [place] [address] [id number] 420[address] Mar, [facility] [place] [address] [id number] 6[address]172 Mar, [facility] [place] [address] [facility] [place] [address] Mar, test negative V72.41 [facility] [place] [address] [id number] [address] Mar, [facility] [place] [id number] [place] [address], [place] [address] Mar, [facility] [place] [address] [id number] 336[address] Feb, [facility] [place] [id number] [place] [address], [place] [id number] Feb, [facility] [place] [id number] [place] [address], [place] [id number] Feb, [facility] [place] [address] [id number] 652090504 Feb, [facility] [place] [address] [id number] 20[place] Feb, [facility] [place] [id number] [place] [address], [place] 3239[place]652 Feb, [facility] [place] [id number] [place] [address], [place] [id number] Feb, [facility] [place] [id number] [place] [address], [place] 759[place]458 Feb, [facility] [place] [id number] [place] [address], [place] 8394[place]504 Feb, [facility] [place] [id number] [place] [address], [place] 800[place]0125 Feb, [facility] [place] [id number] [place] [address], [place] 79[place]39 Feb, [facility] [place] [id number] [place] [address], [place] 727045312 Feb, [facility] [place] [address] [id number] [place] 620599075 Jan, [facility] [place] [address] [id number] [place] 001145[place] Jan, [facility] [place] [address] [id number] 32196[place] Jan, [facility] [address] [facility] [facility] [address] [id number] [facility] [address] Jan, Dental examination V72.2 [facility] [place] [address] [id number] [place] 416607054 Jan, [facility] [place] [address] [id number] [place] 1701[place]172 Jan, [facility] [place] [address] [id number] 938938[place] Jan, [facility] [place] [address] [id number] 9661883[place] Jan, [facility] [place] [address] [id number] [place] [address], [place] [id number] Jan, [facility] [place] [address] [id number] 447209926 Jan, [facility] [place] [address] [id number] [place] [address], [place] [id number] 14 Jan, 2015 [facility] [place] [address] [id number] 628144729 Jan, [facility] [place] [address] [id number] [place] [address], [place] 799288637 Jan, [facility] [place] [address] [id number] [place] [address], [place] [id number] Jan, [facility] [place] [address] [id number] 802977868 Jan, [facility] [place] [address] [id number] [place] 270145996 Jan, [facility] [place] [address] [id number] [place] [address], [place] [id number] Jan, [facility] [place] [address] [id number] [place] [address], [place] [id number] Jan, [facility] [place] [address] [id number] [place] [address], [place] [id number] Jan, [facility] [place] [address] [id number] [place] 929556968 Jan, [facility] [place] [address] [id number] [place] 743[place] Jan, [facility] [place] [address] [id number] [place] 901916296 Jan, 2014 [facility] [place] [address] [id number] [place] 720679872 Jan, 2014 [facility] [place] [address] [id number] [place] 709469880 Jan, [facility] [place] [address] [id number] [place] 121337278 Jan, [facility] [place] [address] [id number] [place] 993144825 Jan, [facility] [place] [address] [id number] [place] 142940668 Jan, [facility] [place] [address] [id number] [place] 430037769 Jan, [facility] [place] [address] [id number] [place] 063443808 December, [facility] [place] [address] [id number] [place] 639699956 December, [facility] [place] [address] [id number] [place] 275763514 December, [facility] [place] [address] [id number] [place] 301525585 December, [facility] [place] [address] [id number] [place] 903369499 December, [facility] [place] [address] [id number] [place] [id number] December, [facility] [place] [address] [id number] [place] 091609024 December, [facility] [place] [address] [id number] [place] [id number] December, [facility] [place] [address] [id number] [place] 157529768 December, [facility] [place] [address] [id number] [place] 818179393 December, [facility] [place] [address] [id number] [place] 367703016 December, [facility] [place] [address] [id number] [place] [id number] December, [facility] [place] [address] [id number] [place] 492406587 December, [facility] [place] [address] [id number] 448977168 December, [facility] [place] [address] [id number] [id number] Nov, [facility] [place] [address] [id number] [id number] Nov, [facility] [place] [address] [facility]757[facility] 390785923 Nov, [facility] [place] [address] [facility]07757[facility] 245800523 Nov, [facility] [address] [place] [address] Nov, [facility] [address] [place] [address] Nov, [facility] [address] [address] Sep, [facility] [address] [address] Sep, [facility] [id number] [place] [address] Jul, [facility] [id number] [place] [address] Jul, [facility] [address] [address] Jul, [facility] [address] [place] [address] Jul, [facility] [id number] [place] [address] Jul, [facility] [address] [address] Jul, [facility] [address] [facility] [id number] [place] [address] Jun, [facility] [address] [facility] [id number] [place] [address] Jun, [facility] [address] [id number] [place] [address] Jun, [facility] [address] [id number] [place] [address] Jun, [facility] [address] [facility] [id number] [place] [address] May, [facility] [address] [id number] [place] [address] May, [facility] [address] [id number] [place] [address] Feb, [facility] [address] [id number] [place] [address] Feb, [facility] [address] [id number] [place] [address] Feb, [facility] [address] [id number] [place] [address] Feb, [facility] [address] [id number] [place] [address] Jan, [facility] [address] [id number] [place] [address] Jan, [facility] [address] [id number] [place] [address] Jan, [facility] [address] [id number] [place] [address] Jan, [facility] [address] [id number] [place] [address] December, [facility] [address] [id number] [place] [address] December, [facility] [address] [id number] [place] [address] December, [facility] [address] [place] [id number] [place] [address] December, [facility] [address] [id number] [place] [address] December, [facility] [address] [id number] [place] [address] December, [facility] [address] [id number] [place] [address] December, [facility] [address] [id number] [place] [address] December, [facility] [address] [id number] [place] [address] December, [facility] [address] [id number] [place] [address] December, [facility] [address] [id number] [place] [address] December, [facility] [address] [id number] [place] [address] December, [facility] [address] [id number] [place] [address] December, [facility] [address] [id number] [place] [address] December, [facility] [address] [id number] [place] [address] December, [facility] [address] [id number] [place] [address] December, [facility] [address] [place] [id number] [place] [address] December, [facility] [address] [id number] [place] [address] Nov, [facility] [address] [id number] [place] [address] Nov, [facility] [address] [id number] [place] [address] Nov, [facility] [address] [id number] [place] [address] Nov, [facility] [address] [id number] [place] [address] Nov, [facility] [address] [id number] [place] [address] Nov, [facility] [address] [id number] [place] [address] Nov, [facility] [address] [id number] [place] [address] Nov, [facility] [address] [id number] [place] [address] Nov, [facility] [address] [id number] [place] [address] Nov, [facility] [address] [id number] [place] [address] Nov, [facility] [address] [id number] [place] [address] Nov, [facility] [address] [id number] [place] [address] Nov, [facility] [address] [id number] [place] [address] Nov, [facility] [address] [id number] [place] [address] Nov, [facility] [address] [id number] [place] [address] Nov, [facility] [address] [id number] [place] [address] Oct, [facility] [address] [id number] [place] [address] Oct, [facility] [address] [id number] [place] [address] Oct, [facility] [address] [id number] [place] [address] Oct, [facility] [address] [id number] [place] [address] Oct, [facility] [address] [id number] [place] [address] Oct, [facility] [address] [id number] [place] [address] Oct, [facility] [address] [id number] [place] [address] Oct, [facility] [address] [id number] [place] [address] Sep, [facility] [address] [id number] [place] [address] Sep, [facility] [address] [id number] [place] [address] Sep, [facility] [address] [id number] [place] [address] Sep, [facility] [address] [id number] [place] [address] Sep, [facility] [address] [id number] [place] [address] Sep, [facility] [address] [id number] [place] [address] Sep, [facility] [address] [id number] [place] [address] Sep, [facility] [address] [id number] [place] [address] Sep, [facility] [address] [id number] [place] [address] Sep, [facility] [address] [id number] [place] [address] Aug, [facility] [address] [id number] [place] [address] Aug, [facility] [address] [id number] [place] [address] Jul, [facility] [address] [id number] [place] [address] Jul, [facility] [address] [id number] [place] [address] Jul, [facility] [address] [id number] [place] [address] Jul, [facility] [address] [id number] [place] [address] Jul, [facility] [address] [id number] [place] [address] Jul, [facility] [id number] [place] [address] Jun, [facility] [address] [id number] [place] [address] Jun, [facility] [address] [id number] [place] [address] Jun, [facility] [address] [id number] [place] [address] May, [facility] [address] [id number] [place] [address] December, [facility] [address] [id number] [place] [address] December, [facility] [address] [id number] [place] [address] Jan, [facility] [id number] [place] [address] Jan, [facility] [address] [id number] [place] [address] Jan, [facility] [address] [id number] [place] [address] Jan, [facility] [id number] [place] [address] December, [facility] [address] [id number] [place] [id number] December, [facility] [address] [id number] [place] [address] December, [facility] [id number] [place] [address] December, [facility] [address] [facility] [id number] [place] [address] December, [facility] [id number] [place] [address] Oct, [facility] [address] [facility] [id number] [place] [address] Jul, [facility] [address] [id number] [place] [address] Jul, [facility] [address] [facility] [id number] [place] [address] Jun, IMMUNIZATIONS No Known Immunizations SOCIAL HISTORY Never Assessed REASON FOR VISIT PLAN OF CARE VITAL SIGNS MEDICATIONS No Known Medications RESULTS No Results PROCEDURES Procedure Date Ordered Result Body Site OB US, FOLLOW-UP, PER FETUS November 29, 2013 INSTRUCTIONS MEDICATIONS ADMINISTERED No Known Medications [...]
--- OUTSIDE RECORDS SUMMARY | 2019-11-24 00:47 | XMS REPORT ---
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 Name Role Phone WILMAN PEÑALOZA Unavailable PROBLEMS Type Condition ICD9-CM Code ZWD71-ZC Code Onset Dates Condition S tatus SNOMED Code Problem Elevated blood pressure reading without diagnosi s of hypertension 796.2 Active 119069771 Problem Irregular menstrual cycle N92.6 Acti ve 72694446 Problem Lower abdominal pain R10.30 Active 79916906 Problem Chronic gingivitis, plaque induced K05.10 Active 81361096 Problem Positive serology for syphilis A53.0 Active 012162336 Problem Constipation, unspecified constipation type K59.00 Active 11162595 Problem Fatigue, unspecified type R53.83 Acti ve 17040120 Problem Anxiety F41.9 Active 24206777 Problem Tobacco abuse Z72.0 Active 750542 05 ALLERGIES No Information ENCOUNTERS Encounter Location Date Diagnosis [facility] [address] [facility] [id number] [address] [place] [address] Jul, Pharyngitis J02.9 [facility] [id number] [place] [address] May, Positive serology for syphilis A53.0 [facility] [id number] [place] [address] May, [facility] [id number] [place] [address] Apr, [place] [address] [address] Apr, Concern about STD in female without diag nosis Z71.1 ; Needlestick injury due to hypodermic needle W46.0XXA ; Candidal vaginitis B37.3 and Trichomonas vaginitis A59.01 [facility] [address] [facility] [facility] [id number] [address] [place] [address] December, UTI symptoms R39.9 and Acute cystitis with hematuria N30.[address] [id number] Feb, Acute cystitis without hematuria N30.[address] [id number] Oct, [facility] [address] [facility] [place] [id number] Oct, Dental examination Z01.20 [facility] [id number] [place] [address] Oct, Dental examination Z01.20 and Chronic gi ngivitis, plaque induced K05.10 [facility] [id number] [place] [address] Oct, Dental examination Z01.[address] [id number] Jun, [address] [id number] May, [address] [id number] May, [address] [id number] Apr, [address] [id number] Apr, [address] [id number] Feb, Encounter for test, result unknown Z32.[address] [id number] Feb, [address] [id number] Feb, [address] [id number] Feb, Encounter for test, result unknown Z32.00 [address] [place] [id number] Jan, [facility] [place] [address] [id number] [place] [id number] Jan, [facility] [place] [address] [id number] [place] [id number] Jan, [facility] [place] [address] [id number] [place] 809[address] December, [facility] [place] [address] [id number] [place] [id number] December, [facility] [place] [address] [id number] [place] [id number] Nov, [facility] [place] [address] [id number] [place] [id number] Nov, [facility] [place] [address] [id number] [place] [id number] Nov, [facility] [place] [address] [id number] [place] [id number] Oct, [facility] [place] [address] [id number] [place] [id number] Oct, [facility] [place] [address] [id number] [place] [id number] Oct, [facility] [place] [address] [id number] [place] [id number] Oct, [facility] [place] [address] [id number] [place] [id number] Sep, [facility] [place] [address] [id number] [place] [id number] Sep, [facility] [place] [address] [id number] [place] [id number] Sep, [facility] [place] [address] [id number] [place] [id number] Sep, [facility] [place] [address] [id number] [place] [id number] Sep, [facility] [place] [address] [id number] [place] [id number] Aug, [facility] [place] [address] [id number] [place] [id number] Jul, [facility] [place] [address] [id number] [id number] Jul, [facility] [place] [address], [place] [id number] Jun, [facility] [place] [address], [place] [id number] Jun, [facility] [place] [address], [place] [id number] Jun, [facility] [place] [address], [place] [id number] Jun, [facility] [place] [address], [place] [id number] Jun, [facility] [place] [address], [place] [id number] Jun, [facility] [place] [address], [place] [id number] May, [facility] [place] [address], [place] [id number] May, [facility] [place] [address], [place] [id number] May, [facility] [address] [id number] [place] [address] Apr, Bronchitis J40 [facility] [place] [address] [id number] Mar, [facility] [place] [address] [id number] Feb, [facility] [place] [address] [id number] Feb, [facility] [place] [address] [id number] Feb, Sore throat J02.9 and Ear pain, right H92.01 [facility] [place] [address] [id number] Jan, [facility] [place] [address] [id number] Jan, Viral syndrome B34.9 ; Other seasonal allergic rhinitis J30.2 and Post-nasal drip R09.82 [facility] [place] [address] [id number] Jan, [place] [id number] [place] [id number] Nov, [address] [id number] Oct, test positive Z32.01 [place] [address] [address] Oct, [place] [address] [address] Oct, [place] [address] [address] Sep, Kidney stones N20.0 [place] [address] [address] 18 Sep, 2015 [place] [address] [address] Sep, Pelvic pain R10.2 ; Left lower quadrant pain R10.32 ; Vaginal discharge N89.8 ; Routine screening for STI (sexually transmitted infection) Z11.3 ; Unprotected sexual intercourse Z72.51 ; Kidney stone N20.0 ; History of dyspareunia in female Z87.42 and Screening for malignant neoplasm of cervix Z12.4 [place] [address] [address] 12 Jun, 2015 Constipation, unspecified constipation t ype K59.00 ; Lower abdominal pain R10.30 ; Irregular menstrual cycle N92.6 ; Anxiety F41.9 ; Fatigue, unspecified type R53.83 and Tobacco abuse Z72.[address] [id number] Jun, [address] [id number] Jun, Nausea R11.[address] [id number] May, Alopecia L65.[address] [id number] May, [facility] [place] [address] [id number] [id number] Apr, [facility] [place] [address] [id number] [id number] Mar, [facility] [place] [id number] [place] [address], [place] [id number] Mar, [facility] [place] [address] [id number] [id number] Mar, [facility] [address] [facility] [place] [address] Mar, test negative V72.41 [facility] [place] [id number] [place] [address], [place] [id number] Mar, [facility] [place] [id number] [place] [address], [place] [id number] Mar, [facility] [place] [id number] [place] [address], PR [id number] Feb, [facility] [place] [id number] [place] [address], [place] [id number] Feb, [facility] [place] [id number] [place] [address], [place] [id number] Feb, [facility] [place] [id number] [place] [address], [place] [id number] Feb, [facility] [place] [id number] [place] [address], PR [id number] Feb, [facility] [place] [id number] [place] [address], PR [id number] Feb, [facility] [place] [address], [place] [id number] Feb, [facility] [place] [id number] [place] [address], PR [id number] Feb, [facility] [place] [id number] [place] [address], PR [id number] Feb, [facility] [place] [id number] [place] [address], [place] [id number] Feb, [facility] [place] [id number] [place] [address], PR [id number] Feb, [facility] [place] [id number] [place] [address], PR [id number] Feb, [facility] [place] [address] [id number] [id number] Jan, [facility] [place] [address] [id number] [place] [id number] Jan, [facility] [place] [address] [place] [id number] [id number] Jan, [facility] [address] [id number] [facility] [id number] Jan, Dental examination V72.2 [facility] [place] [address] [id number] [place] [address], PR [id number] Jan, [facility] [place] [address] [id number] [place] [address], [place] [id number] Jan, [facility] [place] [address] [id number] [id number] Jan, [facility] [place] [address] [place] [id number] [place] [address], PR [id number] Jan, [facility] [place] [address], [place] [id number] Jan, [facility] [place] [address] [id number] [place] [address], PR [id number] 15 Jan, 2015 [facility] [place] [address] [id number] [place] [address], PR [id number] 14 Jan, 2015 [facility] [place] [address] [place] [id number] [place] [address], PR [id number] Jan, [facility] [place] [address] [id number] [place] [address], PR [id number] Jan, [facility] [place] [address] [id number] [place] [address], PR [id number] Jan, [facility] [place] [address] [id number] [place] [address], PR [id number] Jan, [facility] [place] [address] [id number] [place] [address], PR [id number] Jan, [facility] [place] [address] [place] [id number] [place] [address], PR [id number] Jan, [facility] [place] [address] [id number] [place] [address], PR [id number] Jan, [facility] [place] [address], [place] [id number] Jan, 2014 [facility] [place] [address] [id number] [place] [id number] Jan, [facility] [place] [address] [id number] [place] [id number] Jan, 2014 [facility] [place] [address] [id number] [place] [id number] Jan, 2014 [facility] [place] [address] [id number] [place] [id number] Jan, 2014 [facility] [place] [address] [id number] [place] [id number] Jan, 2014 [facility] [place] [address] [id number] [place] [id number] Jan, [facility] [place] [address] [id number] [place] [id number] Jan, [facility] [place] [address] [id number] [place] [id number] Jan, [facility] [place] [address] [id number] [place] [id number] Jan, [facility] [place] [address] [id number] [place] [id number] December, [facility] [place] [address] [id number] [place], PR [id number] December, [facility] [place] [address] [id number] [place], PR [id number] December, [facility] [place] [address] [id number] [place] PR [id number] December, [facility] [place] [address] [id number] [place] PR [id number] December, [facility] [place] [address] [id number] [place], PR [id number] December, [facility] [place] [address] [id number] [place] PR [id number] December, [facility] [place] [address] [id number] [place] PR [id number] December, [facility] [place] [address] [id number] [place], PR [id number] December, [facility] [place] [address] [id number] [place] PR [id number] December, [facility] [place] [address] [id number] [place] [id number] December, [facility] [place] [address] [id number] [place] [id number] December, [facility] [place] [address] [id number] [place] [id number] December, [facility] [place] [address] [facility]07757[facility] [id number] December, [facility] [place] [address] [id number] [facility] [id number] Nov, [facility] [place] [address] [id number] [id number] Nov, [facility] [place] [address] [facility]07757[facility] [id number] Nov, [facility] [place] [address] [facility]07757[facility] [id number] Nov, [facility] [id number] [place] [address] Nov, [facility] [id number] [place] [address] Nov, [facility] [address] [address] Sep, [facility] [id number] [place] [address] Sep, [facility] [id number] [place] [address] Jul, [facility] [id number] [place] [address] Jul, [facility] [address] [address] Jul, [facility] [id number] [place] [address] Jul, [facility] [id number] [place] [address] Jul, [facility] [id number] [place] [address] Jul, [facility] [address] [facility] [id number] [place] [address] Jun, [facility] [address] [id number] [place] [address] Jun, [facility] [address] [id number] [place] [address] Jun, [facility] [address] [id number] [place] [address] Jun, [facility] [address] [id number] [place] [address] May, [facility] [address] [id number] [place] [address] May, [facility] [address] [id number] [place] [address] Feb, [facility] [address] [id number] [place] [address] Feb, [facility] [address] [id number] [place] [address] Feb, [facility] [address] [id number] [place] [address] Feb, [facility] [address] [id number] [place] [address] Jan, [facility] [address] [id number] [place] [address] Jan, [facility] [address] [id number] [place] [address] Jan, [facility] [address] [id number] [place] [address] Jan, [facility] [address] [id number] [place] [address] December, [facility] [address] [id number] [place] [address] December, [facility] [address] [id number] [place] [address] December, [facility] [address] [id number] [place] [address] December, [facility] [address] [facility] [id number] [place] [address] December, [facility] [address] [id number] [place] [address] December, [facility] [address] [id number] [place] [address] December, [facility] [address] [id number] [place] [address] December, [facility] [address] [id number] [place] [address] December, [facility] [address] [id number] [place] [address] December, [facility] [address] [id number] [place] [address] December, [facility] [address] [id number] [place] [address] December, [facility] [address] [id number] [place] [address] December, [facility] [address] [id number] [place] [address] December, [facility] [address] [id number] [place] [address] December, [facility] [address] [facility] [id number] [place] [address] December, [facility] [address] [id number] [place] [address] December, [facility] [address] [id number] [place] [address] Nov, [facility] [address] [id number] [place] [address] Nov, [facility] [address] [id number] [place] [address] Nov, [facility] [address] [id number] [place] [address] Nov, [facility] [address] [id number] [place] [address] Nov, [facility] [address] [id number] [place] [address] Nov, [facility] [address] [id number] [place] [address] Nov, [facility] [address] [id number] [place] [address] Nov, [facility] [address] [id number] [place] [address] Nov, [facility] [address] [id number] [place] [address] Nov, [facility] [address] [id number] [place] [address] Nov, [facility] [address] [id number] [place] [address] Nov, [facility] [address] [id number] [place] [address] Nov, [facility] [address] [id number] [place] [address] Nov, [facility] [address] [id number] [place] [address] Nov, [facility] [address] [id number] [place] [address] Nov, [facility] [address] [id number] [place] [address] Oct, [facility] [address] [id number] [place] [address] Oct, [facility] [address] [id number] [place] [address] Oct, [facility] [address] [id number] [place] [address] Oct, [facility] [address] [id number] [place] [address] Oct, [facility] [address] [id number] [place] [address] Oct, [facility] [address] [id number] [place] [address] Oct, [facility] [address] [id number] [place] [address] Oct, [facility] [address] [id number] [place] [address] Sep, [facility] [address] [id number] [place] [address] Sep, [facility] [address] [id number] [place] [address] Sep, [facility] [address] [id number] [place] [address] Sep, [facility] [address] [id number] [place] [address] Sep, [facility] [address] [id number] [place] [address] Sep, [facility] [address] [id number] [place] [address] Sep, [facility] [address] [id number] [place] [address] Sep, [facility] [address] [id number] [place] [address] Sep, [facility] [address] [id number] [place] [address] Sep, [facility] [address] [id number] [place] [address] Aug, [facility] [id number] [place] [address] Aug, [facility] [id number] [place] [address] Jul, [facility] [id number] [place] [address] Jul, [facility] [id number] [place] [address] Jul, [facility] [id number] [place] [address] Jul, [facility] [id number] [place] [address] Jul, [facility] [id number] [place] [address] Jul, [facility] [id number] [place] [address] Jun, [facility] [id number] [place] [address] Jun, [facility] [id number] [place] [address] Jun, [facility] [id number] [place] [address] May, [facility] [id number] [place] [address] December, [facility] [id number] [place] [address] December, [facility] [id number] [place] [address] Jan, [facility] [id number] [place] [address] Jan, [facility] [id number] [place] [address] Jan, [facility] [id number] [place] [address] Jan, [facility] [id number] [place] [address] December, [facility] [address] [facility] [id number] [place] [id number] December, [facility] [id number] [place] [address] December, [facility] [id number] [place] [address] December, [facility] [id number] [place] [address] December, [facility] [id number] [place] [address] Oct, [facility] [id number] [place] [address] Jul, [facility] [id number] [place] [address] Jul, [facility] [id number] [place] [address] Jun, IMMUNIZATIONS No Known Immunizations SOCIAL HISTORY [...]
--- OUTSIDE RECORDS SUMMARY | 2019-11-24 00:47 | XMS REPORT ---
Author Author Vilma REBOLLAR Organization [facility] Address [address] [place] [address] Care Team Providers Care Senior Manager Quality Assurance Name Role Phone ANGELIA REBOLLAR Unavailable PROBLEMS Type Condition ICD9-CM Code IRA64-RE Code Onset Dates Condition S tatus SNOMED Code Problem Elevated blood pressure reading without diagnosi s of hypertension 796.2 Active 899248676 Problem Irregular menstrual cycle N92.6 Acti ve 78155916 Problem Lower abdominal pain R10.30 Active 41630272 Problem Chronic gingivitis, plaque induced K05.10 Active 13580115 Problem Positive serology for syphilis A53.0 Active 317873972 Problem Constipation, unspecified constipation type K59.00 Active 00118695 Problem Fatigue, unspecified type R53.83 Acti ve 59839114 Problem Anxiety F41.9 Active 21100972 Problem Tobacco abuse Z72.0 Active 623944 05 ALLERGIES No Information ENCOUNTERS Encounter Location Date Diagnosis [facility] IN [facility] [address] [facility] [id number] [address] [place] [address] Jul, Pharyngitis J02.9 [facility] [id number] [place] [address] May, Positive serology for syphilis A53.0 [facility] [id number] [place] [address] May, [facility] [id number] [place] [address] Apr, [place] [address] [address] Apr, Concern about STD in female without diag nosis Z71.1 ; Needlestick injury due to hypodermic needle W46.0XXA ; Candidal vaginitis B37.3 and Trichomonas vaginitis A59.01 [facility] [address] [facility] [id number] [address] [place] [address] December, UTI symptoms R39.9 and Acute cystitis with hematuria N30.01 [place] [id number] [place] [id number] Feb, Acute cystitis without hematuria N30.[address] [id number] Oct, [facility] [address] [facility] [place] [id number] Oct, Dental examination Z01.20 [facility] [address] [address] Oct, Dental examination Z01.20 and Chronic gi ngivitis, plaque induced K05.10 [facility] [id number] [place] [address] Oct, Dental examination Z01.[address] [id number] Jun, [address] [id number] May, [address] [id number] May, [address] [id number] Apr, [address] [id number] Apr, [address] [id number] Feb, Encounter for test, result unknown Z32.[address] [id number] Feb, [address] [id number] Feb, [address] [id number] Feb, Encounter for test, result unknown Z32.00 [place] [id number] [place] [id number] Jan, [facility] [place] [address] [id number] [place] [id number] Jan, [facility] [place] [address] [id number] [place] [id number] Jan, [facility] [place] [address] [id number] [place] [id number] December, [facility] [place] [address] [id number] [place] [id number] December, [facility] [place] [address] [id number] [place] [id number] Nov, [facility] [place] [address] [id number] [place] [id number] Nov, [facility] [place] [address] [id number] [place] [id number] Nov, [facility] [place] [address] [id number] [place] [id number] Oct, [facility] [place] [address] [id number] [place] [id number] Oct, [facility] [place] [address] [id number] [place] [id number] Oct, [facility] [place] [address] [id number] [place] [id number] Oct, [facility] [place] [address] [id number] [place] [id number] Sep, [facility] [place] [address] [id number] [place] [id number] Sep, [facility] [place] [address] [id number] [place] [id number] Sep, [facility] [place] [address] [id number] [place] [id number] Sep, [facility] [place] [address] [id number] [place] [id number] Sep, [facility] [place] [address] [id number] [place] [id number] Aug, [facility] [place] [address] [id number] [place] [id number] Jul, [facility] [place] [address] [id number] [facility] [id number] Jul, [facility] [place] [address] [id number] Jun, [facility] [place] [address], [place] [id number] Jun, [facility] [place] [address], [place] [id number] Jun, [facility] [place] [address], [place] [id number] Jun, [facility] [place] [address], [place] [id number] Jun, [facility] [place] [address], [place] [id number] Jun, [facility] [place] [address], [place] [id number] May, [facility] [place] [address] [id number] May, [facility] [place] [address], [place] [id number] May, [facility] [address] [id number] [place] [address] Apr, Bronchitis J40 [facility] [place] [address] [id number] Mar, [facility] [place] [address] [id number] Feb, [facility] [place] [address] [id number] Feb, [facility] [place] [address] [id number] Feb, Sore throat J02.9 and Ear pain, right H92.01 [facility] [place] [address] [id number] Jan, [facility] [place] [address] [id number] Jan, Viral syndrome B34.9 ; Other seasonal allergic rhinitis J30.2 and Post-nasal drip R09.82 [facility] [place] [address] [id number] Jan, [place] [id number] [place] [address] [id number] Nov, [address] [id number] Oct, test positive Z32.01 [place] [address] [address] Oct, [place] [address] [address] Oct, [place] [address] [address] Sep, Kidney stones N20.0 [place] [address] [address] 18 Sep, 2015 [place] [address] [address] Sep, Pelvic pain R10.2 ; Left lower quadrant pain R10.32 ; Vaginal discharge N89.8 ; Routine screening for STI (sexually transmitted infection) Z11.3 ; Unprotected sexual intercourse Z72.51 ; Kidney stone N20.0 ; History of dyspareunia in female Z87.42 and Screening for malignant neoplasm of cervix Z12.4 [place] [address] [address] Jun, Constipation, unspecified constipation t ype K59.00 ; Lower abdominal pain R10.30 ; Irregular menstrual cycle N92.6 ; Anxiety F41.9 ; Fatigue, unspecified type R53.83 and Tobacco abuse Z72.[address] [id number] Jun, [address] [id number] Jun, Nausea R11.[address] [id number] May, Alopecia L65.[address] [id number] May, [address] [id number] [facility] [id number] Apr, [facility] [place] [address] [id number] [id number] Mar, [facility] [place] [address] [id number] [id number] Mar, [facility] [place] [address] [id number] [id number] Mar, [facility] [address] [id number] [place] [address] Mar, test negative V72.41 [facility] [place] [address] [id number] [id number] Mar, [facility] [place] [id number] [place] [address], [place] [id number] Mar, [facility] [place] [address] [id number] [id number] Feb, [facility] [place] [id number] [place] [address], [place] [id number] Feb, [facility] [place] [id number] [place] [address], [place] [id number] Feb, [facility] [place] [address] [id number] [id number] Feb, [facility] [place] [address] [id number] [id number] Feb, [facility] [place] [id number] [place] [address], [place] [id number] Feb, [facility] [place] [id number] [place] [address], [place] [id number] Feb, [facility] [place] [id number] [place] [address], [place] [id number] Feb, [facility] [place] [id number] [place] [address], [place] [id number] Feb, [facility] [place] [id number] [place] [address], [place] [id number] Feb, [facility] [place] [id number] [place] [address], [place] [id number] Feb, [facility] [place] [id number] [place] [address], [place] [id number] Feb, [facility] [place] [address] [id number] [place] [id number] Jan, [facility] [place] [address] [id number] [place] [id number] Jan, [facility] [place] [address] [id number] [facility] [id number] Jan, [facility] [address] [id number] [facility] [place] [id number] Jan, Dental examination V72.2 [facility] [place] [address] [id number] [place] [id number] Jan, [facility] [place] [address] [id number] [place] [id number] Jan, [facility] [place] [address] [id number] [facility] [id number] Jan, [facility] [place] [address] [id number] [facility] [id number] Jan, [facility] [place] [address] [id number] [place] [address], [place] [id number] Jan, [facility] [place] [address] [id number] [facility] [id number] Jan, [facility] [place] [address] [id number] [place] [address], [place] [id number] 14 Jan, 2015 [facility] [place] [address] [id number] [facility] [id number] Jan, [facility] [place] [address] [id number] [place] [address], [place] [id number] Jan, [facility] [place] [address] [id number] [place] [address], [place] [id number] Jan, [facility] [place] [address] [id number] [facility] [id number] Jan, [facility] [place] [address] [id number] [place] [id number] Jan, [facility] [place] [address] [id number] [place] [address], [place] [id number] Jan, [facility] [place] [address] [id number] [place] [address], [place] [id number] Jan, [facility] [place] [address] [id number] [place] [address], [place] [id number] Jan, [facility] [place] [address] [id number] [place] [id number] Jan, [facility] [place] [address] [id number] [place] [id number] Jan, [facility] [place] [address] [id number] [place] [id number] Jan, 2014 [facility] [place] [address] [id number] [place] [id number] Jan, 2014 [facility] [place] [address] [id number] [place] [id number] Jan, [facility] [place] [address] [id number] [place] [id number] Jan, [facility] [place] [address] [id number] [place] [id number] Jan, [facility] [place] [address] [id number] [place] [id number] Jan, [facility] [place] [address] [id number] [place] [id number] Jan, [facility] [place] [address] [id number] [place] [id number] December, [facility] [place] [address] [id number] [place] [id number] December, [facility] [place] [address] [id number] [place] [id number] December, [facility] [place] [address] [id number] [place] [id number] December, [facility] [place] [address] [id number] [place] [id number] December, [facility] [place] [address] [id number] [place] [id number] December, [facility] [place] [address] [id number] [place] [id number] December, [facility] [place] [address] [id number] [place] [id number] December, [facility] [place] [address] [id number] [place] [id number] December, [facility] [place] [address] [id number] [place] [id number] December, [facility] [place] [address] [id number] [place] [id number] December, [facility] [place] [address] [id number] [place] [id number] December, [facility] [place] [address] [id number] [place] [id number] December, [facility] [place] [address] [id number] [facility] [id number] December, [facility] [place] [address] [id number] [facility] [id number] Nov, [facility] [place] [address] [id number] [facility] [id number] Nov, [facility] [place] [address] [facility]07757[facility] [id number] Nov, [facility] [place] [address] [facility]07757NE[facility] [id number] Nov, [facility] [id number] [place] [address] Nov, [facility] [id number] [place] [address] Nov, [facility] [address] [address] Sep, [facility] [address] [address] Sep, [facility] [id number] [place] [address] Jul, [facility] [id number] [place] [address] Jul, [facility] [address] [address] Jul, [facility] [id number] [place] [address] Jul, [facility] [id number] [place] [address] Jul, [facility] [address] [address] Jul, [facility] [address] [facility] [id number] [place] [address] Jun, [facility] [address] [facility] [id number] [place] [address] Jun, [facility] [address] [id number] [place] [address] Jun, [facility] [address] [id number] [place] [address] Jun, [facility] [address] [facility] [id number] [place] [address] May, [facility] [address] [id number] [place] [address] May, [facility] [address] [id number] [place] [address] Feb, [facility] [address] [id number] [place] [address] Feb, [facility] [address] [id number] [place] [address] Feb, [facility] [address] [id number] [place] [address] Feb, [facility] [address] [id number] [place] [address] Jan, [facility] [address] [id number] [place] [address] Jan, [facility] [address] [id number] [place] [address] Jan, [facility] [address] [id number] [place] [address] Jan, [facility] [address] [id number] [place] [address] December, [facility] [address] [id number] [place] [address] December, [facility] [address] [id number] [place] [address] December, [facility] [address] [id number] [place] [address] December, [facility] [address] [id number] [place] [address] December, [facility] [address] [id number] [place] [address] December, [facility] [address] [id number] [place] [address] December, [facility] [address] [id number] [place] [address] December, [facility] [address] [id number] [place] [address] December, [facility] [address] [id number] [place] [address] December, [facility] [address] [id number] [place] [address] December, [facility] [address] [id number] [place] [address] December, [facility] [address] [id number] [place] [address] December, [facility] [address] [id number] [place] [address] December, [facility] [address] [id number] [place] [address] December, [facility] [address] [id number] [place] [address] December, [facility] [address] [id number] [place] [address] December, [facility] [address] [id number] [place] [address] Nov, [facility] [address] [id number] [place] [address] Nov, [facility] [address] [id number] [place] [address] Nov, [facility] [address] [id number] [place] [address] Nov, [facility] [address] [id number] [place] [address] Nov, [facility] [address] [id number] [place] [address] Nov, [facility] [address] [id number] [place] [address] Nov, [facility] [address] [id number] [place] [address] Nov, [facility] [address] [id number] [place] [address] Nov, [facility] [address] [id number] [place] [address] Nov, [facility] [address] [id number] [place] [address] Nov, [facility] [address] [id number] [place] [address] Nov, [facility] [address] [id number] [place] [address] Nov, [facility] [address] [id number] [place] [address] Nov, [facility] [address] [id number] [place] [address] Nov, [facility] [address] [id number] [place] [address] Nov, [facility] [address] [id number] [place] [address] Oct, [facility] [address] [id number] [place] [address] Oct, [facility] [address] [id number] [place] [address] Oct, [facility] [address] [id number] [place] [address] Oct, [facility] [address] [id number] [place] [address] Oct, [facility] [address] [id number] [place] [address] Oct, [facility] [address] [id number] [place] [address] Oct, [facility] [address] [id number] [place] [address] Oct, [facility] [address] [id number] [place] [address] Sep, [facility] [address] [id number] [place] [address] Sep, [facility] [address] [id number] [place] [address] Sep, [facility] [address] [id number] [place] [address] Sep, [facility] [address] [id number] [place] [address] Sep, [facility] [address] [id number] [place] [address] Sep, [facility] [address] [id number] [place] [address] Sep, [facility] [address] [id number] [place] [address] Sep, [facility] [address] [id number] [place] [address] Sep, [facility] [address] [id number] [place] [address] Sep, [facility] [address] [id number] [place] [address] Aug, [facility] [address] [id number] [place] [address] Aug, [facility] [address] [id number] [place] [address] Jul, [facility] [address] [id number] [place] [address] Jul, [facility] [address] [id number] [place] [address] Jul, [facility] [address] [id number] [place] [address] Jul, [facility] [address] [id number] [place] [address] Jul, [facility] [address] [id number] [place] [address] Jul, [facility] [id number] [place] [address] Jun, [facility] [address] [id number] [place] [address] Jun, [facility] [address] [id number] [place] [address] Jun, [facility] [address] [id number] [place] [address] May, [facility] [address] [id number] [place] [address] December, [facility] [address] [id number] [place] [address] December, [facility] [address] [id number] [place] [address] Jan, [facility] [id number] [place] [address] Jan, [facility] [address] [id number] [place] [address] Jan, [facility] [address] [id number] [place] [address] Jan, [facility] [address] [id number] [place] [address] December, [facility] [address] [facility] [id number] [place] [id number] December, [facility] [address] [id number] [place] [address] December, [facility] [id number] [place] [address] December, [facility] [address] [id number] [place] [address] December, [facility] [id number] [place] [address] Oct, [facility] [address] [id number] [place] [address] Jul, [facility] [id number] [place] [address] Jul, [facility] [address] [id number] [place] [address] Jun, IMMUNIZATIONS No Known Immunizations SOCIAL HISTORY Never Assessed REASON FOR VISIT PLAN OF CARE VITAL SIGNS Height 63 in 2014-01-09 Weight 192.3 lbs 2014-01-09 Temperature 97.6 degrees Fahrenheit 2014-01-09 Heart Rate 88 bpm 2014-01-09 Respiratory Rate 22 2014-01-09 Blood pressure systolic 126 mmHg 2014-01-09 Blood pressure diastolic 70 mmHg 2014-01-09 MEDICATIONS No Known Medications RESULTS No Results PROCEDURES Procedure Date Ordered Result Body Site URINE-NO MICRO January 09, 2014 INSTRUCTIONS MEDICATIONS ADMINISTERED No Known Medications MEDICAL [...]
--- OUTSIDE RECORDS SUMMARY | 2019-11-24 00:47 | XMS REPORT ---
Author Author Vilma REBOLLAR Organization [facility] Address [address] [place] [address] Care Team Providers Care Commander Police Reserves Name Role Phone ANGELIA REBOLLAR Unavailable PROBLEMS Type Condition ICD9-CM Code EOS85-IM Code Onset Dates Condition S tatus SNOMED Code Problem Elevated blood pressure reading without diagnosi s of hypertension 796.2 Active 349578019 Problem Irregular menstrual cycle N92.6 Acti ve 69657615 Problem Lower abdominal pain R10.30 Active 08013535 Problem Chronic gingivitis, plaque induced K05.10 Active 81294204 Problem Positive serology for syphilis A53.0 Active 691293251 Problem Constipation, unspecified constipation type K59.00 Active 55812200 Problem Fatigue, unspecified type R53.83 Acti ve 87337686 Problem Anxiety F41.9 Active 11219064 Problem Tobacco abuse Z72.0 Active 631025 05 ALLERGIES No Information ENCOUNTERS Encounter Location Date Diagnosis [facility] [address] [facility] [id number] [place] [address] Jul, Pharyngitis J02.9 [facility] [id number] [place] [address] May, Positive serology for syphilis A53.0 [facility] [address] [id number] [place] [address] May, [facility] [id number] [place] [address] Apr, [place] [address] [address] Apr, Concern about STD in female without diag nosis Z71.1 ; Needlestick injury due to hypodermic needle W46.0XXA ; Candidal vaginitis B37.3 and Trichomonas vaginitis A59.01 [facility] [address] [facility] [id number] [address] [place] [address] December, UTI symptoms R39.9 and Acute cystitis with hematuria N30.01 [id number] [place] [id number] Feb, Acute cystitis without hematuria N30.[address] [id number] Oct, [facility] [address] [id number] [place] [id number] Oct, Dental examination Z01.20 [facility] [address] [address] Oct, Dental examination Z01.20 and Chronic gi ngivitis, plaque induced K05.10 [facility] [id number] [place] [address] Oct, Dental examination Z01.[address] [id number] Jun, [address] [id number] May, [address] [id number] May, [address] [id number] Apr, [address] [id number] Apr, [address] [id number] Feb, Encounter for test, result unknown Z32.[address] [id number] Feb, [address] [id number] Feb, [address] [id number] Feb, Encounter for test, result unknown Z32.00 [id number] [place] [address] Jan, [facility] [place] [address] [id number] [place] [address] Jan, [facility] [place] [address] [id number] [place] [id number] Jan, [facility] [place] [address] [id number] [place] 100032500 December, [facility] [place] [address] [id number] [place] 3485[address] December, [facility] [place] [address] [id number] [place] [id number] Nov, [facility] [place] [address] [id number] [place] [address] Nov, [facility] [place] [address] [id number] [place] [id number] Nov, [facility] [place] [address] [id number] [place] 780908355 Oct, [facility] [place] [address] [id number] [place] 314243847 Oct, [facility] [place] [address] [id number] [place] 9267148[address] Oct, [facility] [place] [address] [id number] [place] 548690686 Oct, [facility] [place] [address] [id number] [place] 296426677 Sep, [facility] [place] [address] [id number] [place] 104769386 Sep, [facility] [place] [address] [id number] [place] 811192087 Sep, [facility] [place] [address] [id number] [place] [address]28[address] Sep, [facility] [place] [address] [id number] [place] 9163[address]275 Sep, [facility] [place] [address] [id number] [place] 698900370 Aug, [facility] [place] [address] [id number] [place] 505135705 Jul, [facility] [place] [address] [id number] [address]9412[place] Jul, [facility] [place] [address], [place] [address]1918 Jun, [facility] [place] [address], [place] [id number] Jun, [facility] [place] [address], [place] [id number] Jun, [facility] [place] [address], [place] [id number] Jun, [facility] [place] [address], [place] 265362215 Jun, [facility] [place] [address], [place] [id number] Jun, [facility] [place] [address], [place] [address]169[address] May, [facility] [place] [address] [id number] May, [facility] [place] [address], [place] [address]99[address] May, [facility] [address] [id number] [place] [address] Apr, Bronchitis J40 [facility] [place] [address] [id number] Mar, [facility] [place] [address] [id number] Feb, [facility] [place] [address] [id number] Feb, [facility] [place] [address] [id number] Feb, Sore throat J02.9 and Ear pain, right H92.01 [facility] [place] [address] [id number] Jan, [facility] [place] [address] [id number] Jan, Viral syndrome B34.9 ; Other seasonal allergic rhinitis J30.2 and Post-nasal drip R09.82 [facility] [place] [address] [id number] Jan, [id number] [place] [id number] Nov, [address] [id number] Oct, test positive Z32.01 [address] [address] [address] Oct, [place] [address] [address] Oct, [place] [address] [address] Sep, Kidney stones N20.0 [address] [address] [address] 18 Sep, 2015 [address] [address] [address] Sep, Pelvic pain R10.2 ; Left lower quadrant pain R10.32 ; Vaginal discharge N89.8 ; Routine screening for STI (sexually transmitted infection) Z11.3 ; Unprotected sexual intercourse Z72.51 ; Kidney stone N20.0 ; History of dyspareunia in female Z87.42 and Screening for malignant neoplasm of cervix Z12.4 [place] [address] [address] Jun, Constipation, unspecified constipation t ype K59.00 ; Lower abdominal pain R10.30 ; Irregular menstrual cycle N92.6 ; Anxiety F41.9 ; Fatigue, unspecified type R53.83 and Tobacco abuse Z72.[address] [id number] Jun, [address] [id number] Jun, Nausea R11.[address] [id number] May, Alopecia L65.[address] [id number] May, [address] [id number] 533592076 Apr, [facility] [place] [address] [id number] [address]887 Mar, [facility] [place] [address] [id number] 0720775[address] Mar, [facility] [place] [address] [id number] 249660466 Mar, [facility] [address] [id number] [place] [address] Mar, test negative V72.41 [facility] [place] [address] [id number] [id number] Mar, [facility] [place] [id number] [place] [address], [place] [address]66 Mar, [facility] [place] [address] [id number] [id number] Feb, [facility] [place] [id number] [place] [address], [place] 529431731 Feb, [facility] [place] [id number] [place] [address], [place] [id number] Feb, [facility] [place] [address] [id number] 989112190 Feb, [facility] [place] [address] [id number] 128673306 Feb, [facility] [place] [id number] [place] [address], [place] 016930169 Feb, [facility] [place] [id number] [place] [address], [place] [id number] Feb, [facility] [place] [id number] [place] [address], [place] [id number] Feb, [facility] [place] [id number] [place] [address], [place] 974175769 Feb, [facility] [place] [id number] [place] [address], [place] 977623454 Feb, [facility] [place] [id number] [place] [address], [place] [id number] Feb, [facility] [place] [id number] [place] [address], [place] 557469582 Feb, [facility] [place] [address] [id number] [place] 960166281 Jan, [facility] [place] [address] [id number] [place] [id number] Jan, [facility] [place] [address] [id number] 037599733 Jan, [facility] [address] [address] [id number] [facility] [address] Jan, Dental examination V72.2 [facility] [place] [address] [id number] [place] [id number] Jan, [facility] [place] [address] [id number] [place] 027024059 Jan, [facility] [place] [address] [id number] 057656016 Jan, [facility] [place] [address] [id number] 694756231 Jan, [facility] [place] [address] [id number] [place] [address], [place] [id number] Jan, [facility] [place] [address] [id number] 396456052 Jan, [facility] [place] [address] [id number] [place] [address], [place] [id number] 14 Jan, 2015 [facility] [place] [address] [id number] [facility] 275503277 Jan, [facility] [place] [address] [id number] [place] [address], [place] 095470070 Jan, [facility] [place] [address] [id number] [place] [address], [place] [id number] Jan, [facility] [place] [address] [id number] [id number] Jan, [facility] [place] [address] [id number] [place] 818594211 Jan, [facility] [place] [address] [id number] [place] [address], [place] [id number] Jan, [facility] [place] [address] [id number] [place] [address], [place] [id number] Jan, [facility] [place] [address] [id number] [place] [address], [place] [id number] Jan, [facility] [place] [address] [id number] [place] 734480835 Jan, [facility] [place] [address] [id number] [place] 601679029 Jan, [facility] [place] [address] [id number] [place] 629066564 Jan, 2014 [facility] [place] [address] [id number] [place] [id number] Jan, 2014 [facility] [place] [address] [id number] [place] 198144089 Jan, [facility] [place] [address] [id number] [place] 028733717 Jan, [facility] [place] [address] [id number] [place] 029836349 Jan, [facility] [place] [address] [id number] [place] 138086407 Jan, [facility] [place] [address] [id number] [place] [id number] Jan, [facility] [place] [address] [id number] [place] 080635135 December, [facility] [place] [address] [id number] [place] 039762583 December, [facility] [place] [address] [id number] [place] 089598864 December, [facility] [place] [address] [id number] [place] 615208084 December, [facility] [place] [address] [id number] [place] 015740010 December, [facility] [place] [address] [id number] [place] [id number] December, [facility] [place] [address] [id number] [place] 540752808 December, [facility] [place] [address] [id number] [place] 312790282 December, [facility] [place] [address] [id number] [place] 988166458 December, [facility] [place] [address] [id number] [place] [id number] December, [facility] [place] [address] [id number] [place] 728953346 December, [facility] [place] [address] [id number] [place] 482121318 December, [facility] [place] [address] [id number] [place] 784683295 December, [facility] [place] [address] [id number] 014085184 December, [facility] [place] [address] [id number] [facility]ALTH [facility] 118791725 Nov, [facility] [place] [address] [id number] [facility]ALTH [facility] [id number] Nov, [facility] [place] [address] [facility]07757[facility] 079000354 Nov, [facility] [place] [address] [facility]07757[facility] 561052366 Nov, [facility] [id number] [place] [address] Nov, [facility] [id number] [place] [address] Nov, [facility] [address] [address] Sep, [facility] [address] [address] Sep, [facility] [id number] [place] [address] Jul, [facility] [id number] [place] [address] Jul, [facility] [address] [address] Jul, [facility] [id number] [place] [address] Jul, [facility] [address] [id number] [place] [address] Jul, [facility] [address] [address] Jul, [facility] [address] [facility] [id number] [place] [address] Jun, [facility] [address] [facility] [id number] [place] [address] Jun, [facility] [address] [id number] [place] [address] Jun, [facility] [address] [id number] [place] [address] Jun, [facility] [address] [facility] [id number] [place] [address] May, [facility] [address] [id number] [place] [address] May, [facility] [address] [id number] [place] [address] Feb, [facility] [address] [id number] [place] [address] Feb, [facility] [address] [id number] [place] [address] Feb, [facility] [address] [id number] [place] [address] Feb, [facility] [address] [id number] [place] [address] Jan, [facility] [address] [id number] [place] [address] Jan, [facility] [address] [id number] [place] [address] Jan, [facility] [address] [id number] [place] [address] Jan, [facility] [address] [id number] [place] [address] December, [facility] [address] [id number] [place] [address] December, [facility] [address] [id number] [place] [address] December, [facility] [address] [id number] [place] [address] December, [facility] [address] [id number] [place] [address] December, [facility] [address] [id number] [place] [address] December, [facility] [address] [id number] [place] [address] December, [facility] [address] [id number] [place] [address] December, [facility] [address] [id number] [place] [address] December, [facility] [address] [id number] [place] [address] December, [facility] [address] [id number] [place] [address] December, [facility] [address] [id number] [place] [address] December, [facility] [address] [id number] [place] [address] December, [facility] [address] [id number] [place] [address] December, [facility] [address] [id number] [place] [address] December, [facility] [address] [id number] [place] [address] December, [facility] [address] [id number] [place] [address] December, [facility] [address] [id number] [place] [address] Nov, [facility] [address] [id number] [place] [address] Nov, [facility] [address] [id number] [place] [address] Nov, [facility] [address] [id number] [place] [address] Nov, [facility] [address] [id number] [place] [address] Nov, [facility] [address] [id number] [place] [address] Nov, [facility] [address] [id number] [place] [address] Nov, [facility] [address] [id number] [place] [address] Nov, [facility] [address] [id number] [place] [address] Nov, [facility] [address] [id number] [place] [address] Nov, [facility] [address] [id number] [place] [address] Nov, [facility] [address] [id number] [place] [address] Nov, [facility] [address] [id number] [place] [address] Nov, [facility] [address] [id number] [place] [address] Nov, [facility] [address] [id number] [place] [address] Nov, [facility] [address] [id number] [place] [address] Nov, [facility] [address] [id number] [place] [address] Oct, [facility] [address] [id number] [place] [address] Oct, [facility] [address] [id number] [place] [address] Oct, [facility] [address] [id number] [place] [address] Oct, [facility] [address] [id number] [place] [address] Oct, [facility] [address] [id number] [place] [address] Oct, [facility] [address] [id number] [place] [address] Oct, [facility] [address] [id number] [place] [address] Oct, [facility] [address] [id number] [place] [address] Sep, [facility] [address] [id number] [place] [address] Sep, [facility] [address] [id number] [place] [address] Sep, [facility] [address] [id number] [place] [address] Sep, [facility] [address] [id number] [place] [address] Sep, [facility] [address] [id number] [place] [address] Sep, [facility] [address] [id number] [place] [address] Sep, [facility] [address] [id number] [place] [address] Sep, [facility] [address] [id number] [place] [address] Sep, [facility] [address] [id number] [place] [address] Sep, [facility] [address] [id number] [place] [address] Aug, [facility] [address] [id number] [place] [address] Aug, [facility] [address] [id number] [place] [address] Jul, [facility] [address] [id number] [place] [address] Jul, [facility] [address] [id number] [place] [address] Jul, [facility] [address] [id number] [place] [address] Jul, [facility] [address] [id number] [place] [address] Jul, [facility] [address] [id number] [place] [address] Jul, [facility] [id number] [place] [address] Jun, [facility] [address] [id number] [place] [address] Jun, [facility] [address] [id number] [place] [address] Jun, [facility] [address] [id number] [place] [address] May, [facility] [address] [id number] [place] [address] December, [facility] [address] [id number] [place] [address] December, [facility] [address] [id number] [place] [address] Jan, [facility] [id number] [place] [address] Jan, [facility] [address] [id number] [place] [address] Jan, [facility] [address] [id number] [place] [address] Jan, [facility] [id number] [place] [address] December, [facility] [address] [id number] [place] [id number] December, [facility] [address] [id number] [place] [address] December, [facility] [id number] [place] [address] December, [facility] [address] [id number] [place] [address] December, [facility] [id number] [place] [address] Oct, [facility] [address] [id number] [place] [address] Jul, [facility] [id number] [place] [address] Jul, [facility] [id number] [place] [address] Jun, IMMUNIZATIONS No Known Immunizations SOCIAL HISTORY [...]
--- OUTSIDE RECORDS SUMMARY | 2019-11-24 00:48 | XMS REPORT ---
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 Role Phone WILMAN PEÑALOZA Unavailable PROBLEMS Type Condition ICD9-CM Code RUK17-AQ Code Onset Dates Condition S tatus SNOMED Code Problem Elevated blood pressure reading without diagnosi s of hypertension 796.2 Active 819124259 Problem Irregular menstrual cycle N92.6 Acti ve 01257852 Problem Lower abdominal pain R10.30 Active 06904538 Problem Chronic gingivitis, plaque induced K05.10 Active 95916754 Problem Positive serology for syphilis A53.0 Active 294146977 Problem Constipation, unspecified constipation type K59.00 Active 11552059 Problem Fatigue, unspecified type R53.83 Acti ve 01486207 Problem Anxiety F41.9 Active 28195916 Problem Tobacco abuse Z72.0 Active 149277 05 ALLERGIES No Information ENCOUNTERS Encounter Location Date Diagnosis [facility] [address] [facility] [id number] [address] [place] [address] Jul, Pharyngitis J02.9 [facility] [address] [id number] [place] [address] May, Positive serology for syphilis A53.0 [facility] [address] [id number] [place] [address] May, [facility] [id number] [place] [address] Apr, [place] [address] [address] Apr, Concern about STD in female without diag nosis Z71.1 ; Needlestick injury due to hypodermic needle W46.0XXA ; Candidal vaginitis B37.3 and Trichomonas vaginitis A59.01 [facility] [address] [facility] [id number] [address] [place] [address] December, UTI symptoms R39.9 and Acute cystitis with hematuria N30.[address] [id number] Feb, Acute cystitis without hematuria N30.[address] [id number] Oct, [facility] [address] [facility] [place] [id number] Oct, Dental examination Z01.20 [facility] [address] [place] [address] Oct, Dental examination Z01.20 and Chronic gi ngivitis, plaque induced K05.10 [facility] [address] [id number] [place] [address] Oct, Dental examination Z01.[address] [id number] Jun, [address] [id number] May, [address] [id number] May, [address] [id number] Apr, [address] [id number] Apr, [address] [id number] Feb, Encounter for test, result unknown Z32.[address] [id number] Feb, [address] [id number] Feb, [address] [id number] Feb, Encounter for test, result unknown Z32.00 [address] [place] [address] Jan, [facility] [place] [address] [id number] [place] [address] Jan, [facility] [place] [address] [id number] [place] 847[address]151 Jan, [facility] [place] [address] [id number] [place] [id number] December, [facility] [place] [address] [id number] [place] 704395443 December, [facility] [place] [address] [id number] [place] [address] Nov, [facility] [place] [address] [id number] [place] 1285[address]887 Nov, [facility] [place] [address] [id number] [place] 192772753 Nov, [facility] [place] [address] [id number] [place] 482839987 Oct, [facility] [place] [address] [id number] [place] 788235283 Oct, [facility] [place] [address] [id number] [place] 997297970 Oct, [facility] [place] [address] [id number] [place] 853260873 Oct, [facility] [place] [address] [id number] [place] [id number] Sep, [facility] [place] [address] [id number] [place] 953632082 Sep, [facility] [place] [address] [id number] [place] 149498894 Sep, [facility] [place] [address] [id number] [place] 247347721 Sep, [facility] [place] [address] [id number] [place] 780210191 Sep, [facility] [place] [address] [id number] [place] 975920445 Aug, [facility] [place] [address] [id number] [place] 053156994 Jul, [facility] [place] [address] [id number] [place] 307955546 Jul, [facility] [place] [address], [place] [id number] Jun, [facility] [place] [address], [place] 949244377 Jun, [facility] [place] [address], [place] 815570459 Jun, [facility] [place] [address], [place] 991016030 Jun, [facility] [place] [address], [place] [id number] Jun, [facility] [place] [address], [place] 718066976 Jun, [facility] [place] [address], [place] 123107561 May, [facility] [place] [address], [place] [id number] May, [facility] [place] [address], [place] [id number] May, [facility] [address] [id number] [place] [address] Apr, Bronchitis J40 [facility] [place] [address] [id number] Mar, [facility] [place] [address] [id number] Feb, [facility] [place] [address] [id number] Feb, [facility] [place] [address] [id number] Feb, Sore throat J02.9 and Ear pain, right H92.01 [facility] [place] [address] [id number] Jan, [facility] [place] [address] [id number] Jan, Viral syndrome B34.9 ; Other seasonal allergic rhinitis J30.2 and Post-nasal drip R09.82 [facility] [place] [address] [id number] Jan, [place] [id number] [place] [id number] Nov, [address] [id number] Oct, test positive Z32.01 [place] [address] [address] Oct, [place] [address] [address] Oct, [place] [address] [address] Sep, Kidney stones N20.0 [place] [address] [address] 18 Sep, 2015 [place] [address] [address] Sep, Pelvic pain R10.2 ; Left lower quadrant pain R10.32 ; Vaginal discharge N89.8 ; Routine screening for STI (sexually transmitted infection) Z11.3 ; Unprotected sexual intercourse Z72.51 ; Kidney stone N20.0 ; History of dyspareunia in female Z87.42 and Screening for malignant neoplasm of cervix Z12.4 [place] [address] [address] 12 Jun, 2015 Constipation, unspecified constipation t ype K59.00 ; Lower abdominal pain R10.30 ; Irregular menstrual cycle N92.6 ; Anxiety F41.9 ; Fatigue, unspecified type R53.83 and Tobacco abuse Z72.[address] [id number] Jun, [address] [id number] Jun, Nausea R11.[address] [id number] May, Alopecia L65.[address] [id number] May, [facility] [place] [address] [id number] [address]267 Apr, [facility] [place] [address] [id number] [place] [id number] Mar, [facility] [place] [id number] [place] [address], [place] [id number] Mar, [facility] [place] [address] [id number] [id number] Mar, [facility] [address] [facility] [place] [address] Mar, test negative V72.41 [facility] [place] [id number] [place] [address], [place] [id number] Mar, [facility] [place] [id number] [place] [address], [place] [id number] Mar, [facility] [place] [id number] [place] [address], [place] [id number] Feb, [facility] [place] [id number] [place] [address], [place] [id number] Feb, [facility] [place] [id number] [place] [address], [place] [id number] Feb, [facility] [place] [id number] [place] [address], [place] [id number] Feb, [facility] [place] [id number] [place] [address], [place] [id number] Feb, [facility] [place] [id number] [place] [address], [place] [id number] Feb, [facility] [place] [address], [place] [id number] Feb, [facility] [place] [id number] [place] [address], [place] [id number] Feb, [facility] [place] [id number] [place] [address], [place] [id number] Feb, [facility] [place] [id number] [place] [address], [place] [id number] Feb, [facility] [place] [id number] [place] [address], [place] [id number] Feb, [facility] [place] [id number] [place] [address], [place] [id number] Feb, [facility] [place] [address] [id number] [id number] Jan, [facility] [place] [address] [id number] [place] [id number] Jan, [facility] [place] [address] [place] 12392TS10188AS[facility] [id number] Jan, [facility] [place] [address] [facility] [address] [id number] [facility] [id number] Jan, Dental examination V72.2 [facility] [place] [address] [id number] [place] [address], [place] [id number] Jan, [facility] [place] [address] [id number] [place] [address], [place] [id number] Jan, [facility] [place] [address] [id number] [id number] Jan, [facility] [place] [address] [place] [id number] [place] [address], [place] [id number] Jan, [facility] [place] [address], [place] 900291075 Jan, [facility] [place] [address] [id number] [place] [address], [place] [id number] 15 Jan, 2015 [facility] [place] [address] [id number] [place] [address], [place] [id number] 14 Jan, 2015 [facility] [place] [address] [id number] [place] [address], [place] [id number] Jan, [facility] [place] [address] [id number] [place] [address], [place] [id number] Jan, [facility] [place] [address] [id number] [place] [address], [place] [id number] Jan, [facility] [place] [address] [id number] [place] [address], [place] [id number] Jan, [facility] [place] [address] [id number] [place] [address], [place] [id number] Jan, [facility] [place] [address] [id number] [place] [address], [place] [id number] Jan, [facility] [place] [address] [id number] [place] [address], [place] [id number] Jan, [facility] [place] [address], [place] 890389975 Jan, 2014 [facility] [place] [address] [id number] [place] 677252781 Jan, [facility] [place] [address] [id number] [place] [id number] Jan, 2014 [facility] [place] [address] [id number] [place] [id number] Jan, 2014 [facility] [place] [address] [id number] [place] [id number] Jan, 2014 [facility] [place] [address] [id number] [place] [id number] Jan, 2014 [facility] [place] [address] [id number] [place] 887107550 Jan, [facility] [place] [address] [id number] [place] 965555045 Jan, [facility] [place] [address] [id number] [place] [id number] Jan, [facility] [place] [address] [id number] [place] [id number] Jan, [facility] [place] [address] [id number] [place] 295222900 December, [facility] [place] [address] [id number] [place] [id number] December, [facility] [place] [address] [id number] [place] 034872713 December, [facility] [place] [address] [id number] [place] [id number] December, [facility] [place] [address] [id number] [place] 401641472 December, [facility] [place] [address] [id number] [place] [id number] December, [facility] [place] [address] [id number] [place] [id number] December, [facility] [place] [address] [id number] [place], [place] [id number] December, [facility] [place] [address] [id number] [place] [id number] December, [facility] [place] [address] [id number] [place] [id number] December, [facility] [place] [address] [id number] [place] [id number] December, [facility] [place] [address] [id number] [place] [id number] December, [facility] [place] [address] [id number] [place] [id number] December, [facility] [place] [address] [facility]07757[facility] [id number] December, [facility] [place] [address] [id number] [facility] [id number] Nov, [facility] [place] [address] [id number] [id number] Nov, [facility] [place] [address] [facility]07757[facility] [id number] Nov, [facility] [place] [address] [facility]07757[facility] [id number] Nov, [facility] [id number] [place] [address] Nov, [facility] [id number] [place] [address] Nov, [facility] [address] [address] Sep, [facility] [address] [place] [address] Sep, [facility] [id number] [place] [address] Jul, [facility] [id number] [place] [address] Jul, [facility] [address] [address] Jul, [facility] [address] [place] [address] Jul, [facility] [id number] [place] [address] Jul, [facility] [address] [place] [address] Jul, [facility] [address] [facility] [id number] [place] [address] Jun, [facility] [address] [id number] [place] [address] Jun, [facility] [address] [id number] [place] [address] Jun, [facility] [address] [id number] [place] [address] Jun, [facility] [address] [id number] [place] [address] May, [facility] [address] [id number] [place] [address] May, [facility] [address] [id number] [place] [address] Feb, [facility] [address] [id number] [place] [address] Feb, [facility] [address] [id number] [place] [address] Feb, [facility] [address] [id number] [place] [address] Feb, [facility] [address] [id number] [place] [address] Jan, [facility] [address] [id number] [place] [address] Jan, [facility] [address] [id number] [place] [address] Jan, [facility] [address] [id number] [place] [address] Jan, [facility] [address] [id number] [place] [address] December, [facility] [address] [id number] [place] [address] December, [facility] [address] [id number] [place] [address] December, [facility] [address] [id number] [place] [address] December, [facility] [address] [facility] [id number] [place] [address] December, [facility] [address] [id number] [place] [address] December, [facility] [address] [id number] [place] [address] December, [facility] [address] [id number] [place] [address] December, [facility] [address] [id number] [place] [address] December, [facility] [address] [id number] [place] [address] December, [facility] [address] [id number] [place] [address] December, [facility] [address] [id number] [place] [address] December, [facility] [address] [id number] [place] [address] December, [facility] [address] [id number] [place] [address] December, [facility] [address] [id number] [place] [address] December, [facility] [address] [facility] [id number] [place] [address] December, [facility] [address] [id number] [place] [address] December, [facility] [address] [id number] [place] [address] Nov, [facility] [address] [id number] [place] [address] Nov, [facility] [address] [id number] [place] [address] Nov, [facility] [address] [id number] [place] [address] Nov, [facility] [address] [id number] [place] [address] Nov, [facility] [address] [id number] [place] [address] Nov, [facility] [address] [id number] [place] [address] Nov, [facility] [address] [id number] [place] [address] Nov, [facility] [address] [id number] [place] [address] Nov, [facility] [address] [id number] [place] [address] Nov, [facility] [address] [id number] [place] [address] Nov, [facility] [address] [id number] [place] [address] Nov, [facility] [address] [id number] [place] [address] Nov, [facility] [address] [id number] [place] [address] Nov, [facility] [address] [id number] [place] [address] Nov, [facility] [address] [id number] [place] [address] Nov, [facility] [address] [id number] [place] [address] Oct, [facility] [address] [id number] [place] [address] Oct, [facility] [address] [id number] [place] [address] Oct, [facility] [address] [id number] [place] [address] Oct, [facility] [address] [id number] [place] [address] Oct, [facility] [address] [id number] [place] [address] Oct, [facility] [address] [id number] [place] [address] Oct, [facility] [address] [id number] [place] [address] Oct, [facility] [address] [id number] [place] [address] Sep, [facility] [address] [id number] [place] [address] Sep, [facility] [address] [id number] [place] [address] Sep, [facility] [address] [id number] [place] [address] Sep, [facility] [address] [id number] [place] [address] Sep, [facility] [address] [id number] [place] [address] Sep, [facility] [address] [id number] [place] [address] Sep, [facility] [address] [id number] [place] [address] Sep, [facility] [address] [id number] [place] [address] Sep, [facility] [address] [id number] [place] [address] Sep, [facility] [address] [id number] [place] [address] Aug, [facility] [address] [id number] [place] [address] Aug, [facility] [address] [id number] [place] [address] Jul, [facility] [address] [facility] [id number] [place] [address] Jul, [facility] [id number] [place] [address] Jul, [facility] [id number] [place] [address] Jul, [facility] [id number] [place] [address] Jul, [facility] [id number] [place] [address] Jul, [facility] [id number] [place] [address] Jun, [facility] [id number] [place] [address] Jun, [facility] [id number] [place] [address] Jun, [facility] [id number] [place] [address] May, [facility] [id number] [place] [address] December, [facility] [id number] [place] [address] December, [facility] [id number] [place] [address] Jan, [facility] [id number] [place] [address] Jan, [facility] [id number] [place] [address] Jan, [facility] [id number] [place] [address] Jan, [facility] [id number] [place] [address] December, [facility] [address] [facility] [id number] [place] [id number] December, [facility] [id number] [place] [address] December, [facility] [id number] [place] [address] December, [facility] [id number] [place] [address] December, [facility] [id number] [place] [address] Oct, [facility] [id number] [place] [address] Jul, [facility] [id number] [place] [address] Jul, [facility] [id number] [place] [address] Jun, IMMUNIZATIONS No Known Immunizations SOCIAL HISTORY [...]
--- OUTSIDE RECORDS SUMMARY | 2019-11-24 00:48 | XMS REPORT ---
Author Author Vilma REBOLLAR Organization [facility] Address [address] [place] [address] Care Team Providers Care Surveying Crew Rodman Name Role Phone ANGELIA REBOLLAR Unavailable PROBLEMS Type Condition ICD9-CM Code RUM84-AH Code Onset Dates Condition S tatus SNOMED Code Problem Elevated blood pressure reading without diagnosi s of hypertension 796.2 Active 002956029 Problem Irregular menstrual cycle N92.6 Acti ve 85135021 Problem Lower abdominal pain R10.30 Active 64995272 Problem Chronic gingivitis, plaque induced K05.10 Active 48383240 Problem Positive serology for syphilis A53.0 Active 409769390 Problem Constipation, unspecified constipation type K59.00 Active 81988069 Problem Fatigue, unspecified type R53.83 Acti ve 31912736 Problem Anxiety F41.9 Active 18191279 Problem Tobacco abuse Z72.0 Active 492041 05 ALLERGIES No Information ENCOUNTERS Encounter Location Date Diagnosis [facility] IN [facility] [address] [facility] [id number] [address] [place] [address] Jul, Pharyngitis J02.9 [facility] [id number] [place] [address] May, Positive serology for syphilis A53.0 [facility] [id number] [place] [address] May, [facility] [id number] [place] [address] Apr, [place] [address] [address] Apr, Concern about STD in female without diag nosis Z71.1 ; Needlestick injury due to hypodermic needle W46.0XXA ; Candidal vaginitis B37.3 and Trichomonas vaginitis A59.01 [facility] [address] [facility] [id number] [address] [place] [address] December, UTI symptoms R39.9 and Acute cystitis with hematuria N30.01 [place] [id number] [place] [id number] Feb, Acute cystitis without hematuria N30.[address] [id number] Oct, [facility] [address] [facility] [place] [id number] Oct, Dental examination Z01.20 [facility] [address] [address] Oct, Dental examination Z01.20 and Chronic gi ngivitis, plaque induced K05.10 [facility] [id number] [place] [address] Oct, Dental examination Z01.[address] [id number] Jun, [address] [id number] May, [address] [id number] May, [address] [id number] Apr, [address] [id number] Apr, [address] [id number] Feb, Encounter for test, result unknown Z32.[address] [id number] Feb, [address] [id number] Feb, [address] [id number] Feb, Encounter for test, result unknown Z32.00 [id number] [place] [address] Jan, [facility] [place] [address] [id number] [place] [id number] Jan, [facility] [place] [address] [id number] [place] [id number] Jan, [facility] [place] [address] [id number] [place] [id number] December, [facility] [place] [address] [id number] [place] [id number] December, [facility] [place] [address] [id number] [place] [phone] Nov, [facility] [place] [address] [id number] [place] [id number] Nov, [facility] [place] [address] [id number] [place] [id number] Nov, [facility] [place] [address] [id number] [place] [phone] Oct, [facility] [place] [address] [id number] [place] 710071708 Oct, [facility] [place] [address] [id number] [place] [id number] Oct, [facility] [place] [address] [id number] [place] [id number] Oct, [facility] [place] [address] [id number] [place] [id number] Sep, [facility] [place] [address] [id number] [place] [id number] Sep, [facility] [place] [address] [id number] [place] [id number] Sep, [facility] [place] [address] [id number] [place] [id number] Sep, [facility] [place] [address] [id number] [place] [phone] Sep, [facility] [place] [address] [id number] [place] [id number] Aug, [facility] [place] [address] [id number] [place] [id number] Jul, [facility] [place] [address] [id number] [id number] Jul, [facility] [place] [address], [place] [phone] Jun, [facility] [place] [address], [place] [id number] Jun, [facility] [place] [address], [place] [id number] Jun, [facility] [place] [address], [place] [id number] Jun, [facility] [place] [address], [place] [id number] Jun, [facility] [place] [address], [place] [id number] Jun, [facility] [place] [address], [place] [id number] May, [facility] [place] [address] [id number] May, [facility] [place] [address], [place] [id number] May, [facility] [address] [facility] [place] [address] Apr, Bronchitis J40 [facility] [place] [address] [id number] Mar, [facility] [place] [address] [id number] Feb, [facility] [place] [address] [id number] Feb, [facility] [place] [address] [id number] Feb, Sore throat J02.9 and Ear pain, right H92.01 [facility] [place] [address] [id number] Jan, [facility] [place] [address] [id number] Jan, Viral syndrome B34.9 ; Other seasonal allergic rhinitis J30.2 and Post-nasal drip R09.82 [facility] [place] [address] [id number] Jan, [place] [id number] [place] [address] [id number] Nov, [address] [id number] Oct, test positive Z32.01 [place] [address] [address] Oct, [place] [address] [address] Oct, [place] [address] [address] Sep, Kidney stones N20.0 [place] [address] [address] 18 Sep, 2015 [place] [address] [address] Sep, Pelvic pain R10.2 ; Left lower quadrant pain R10.32 ; Vaginal discharge N89.8 ; Routine screening for STI (sexually transmitted infection) Z11.3 ; Unprotected sexual intercourse Z72.51 ; Kidney stone N20.0 ; History of dyspareunia in female Z87.42 and Screening for malignant neoplasm of cervix Z12.4 [place] [address] [address] Jun, Constipation, unspecified constipation t ype K59.00 ; Lower abdominal pain R10.30 ; Irregular menstrual cycle N92.6 ; Anxiety F41.9 ; Fatigue, unspecified type R53.83 and Tobacco abuse Z72.[address] [id number] Jun, [address] [id number] Jun, Nausea R11.[address] [id number] May, Alopecia L65.[address] [id number] May, [address] [id number] [id number] Apr, [facility] [place] [address] [id number] [id number] Mar, [facility] [place] [address] [id number] [id number] Mar, [facility] [place] [address] [id number] [phone] Mar, [facility] [address] [facility] [place] [address] Mar, test negative V72.41 [facility] [place] [address] [id number] [phone] Mar, [facility] [place] [id number] [place] [address], [place] [id number] Mar, [facility] [place] [address] [id number] [phone] Feb, [facility] [place] [id number] [place] [address], [place] [phone] Feb, [facility] [place] [id number] [place] [address], [place] [id number] Feb, [facility] [place] [address] [id number] [phone] Feb, [facility] [place] [address] [id number] [phone] Feb, [facility] [place] [id number] [place] [address], [place] [id number] Feb, [facility] [place] [id number] [place] [address], [place] [id number] Feb, [facility] [place] [id number] [place] [address], [place] [id number] Feb, [facility] [place] [id number] [place] [address], [place] [id number] Feb, [facility] [place] [id number] [place] [address], [place] [id number] Feb, [facility] [place] [id number] [place] [address], [place] [id number] Feb, [facility] [place] [id number] [place] [address], [place] [id number] Feb, [facility] [place] [address] [id number] [place] [id number] Jan, [facility] [place] [address] [id number] [place] [id number] Jan, [facility] [place] [address] [id number] [facility] [phone] Jan, [facility] [address] [facility] [address] [id number] [facility] [place] [phone] Jan, Dental examination V72.2 [facility] [place] [address] [id number] [place] [id number] Jan, [facility] [place] [address] [id number] [place] [phone] Jan, [facility] [place] [address] [id number] [id number] Jan, [facility] [place] [address] [id number] [id number] Jan, [facility] [place] [address] [id number] [place] [address], [place] [id number] Jan, [facility] [place] [address] [id number] [id number] Jan, [facility] [place] [address] [id number] [place] [address], [place] [id number] 14 Jan, 2015 [facility] [place] [address] [id number] [id number] Jan, [facility] [place] [address] [id number] [place] [address], [place] [id number] Jan, [facility] [place] [address] [id number] [place] [address], [place] [id number] Jan, [facility] [place] [address] [id number] [id number] Jan, [facility] [place] [address] [id number] [place] [id number] Jan, [facility] [place] [address] [id number] [place] [address], [place] [id number] Jan, [facility] [place] [address] [id number] [place] [address], [place] [id number] Jan, [facility] [place] [address] [id number] [place] [address], [place] [id number] Jan, [facility] [place] [address] [id number] [place] [id number] Jan, [facility] [place] [address] [id number] [place] [id number] Jan, [facility] [place] [address] [id number] [place] [id number] Jan, 2014 [facility] [place] [address] [id number] [place] [id number] Jan, 2014 [facility] [place] [address] [id number] [place] [id number] Jan, [facility] [place] [address] [id number] [place] [id number] Jan, [facility] [place] [address] [id number] [place] [id number] Jan, [facility] [place] [address] [id number] [place] [id number] Jan, [facility] [place] [address] [id number] [place] [id number] Jan, [facility] [place] [address] [id number] [place], [place] [id number] December, [facility] [place] [address] [id number] [place] [phone] December, [facility] [place] [address] [id number] [place] [id number] December, [facility] [place] [address] [id number] [place] [id number] December, [facility] [place] [address] [id number] [place] [id number] December, [facility] [place] [address] [id number] [place] [id number] December, [facility] [place] [address] [id number] [place] [id number] December, [facility] [place] [address] [id number] [place] [id number] December, [facility] [place] [address] [id number] [place] [id number] December, [facility] [place] [address] [id number] [place] [id number] December, [facility] [place] [address] [id number] [place] [id number] December, [facility] [place] [address] [id number] [place] [id number] December, [facility] [place] [address] [id number] [place] [id number] December, [facility] [place] [address] [id number] [id number] December, [facility] [place] [address] [id number] [id number] Nov, [facility] [place] [address] [id number] [phone] Nov, [facility] [place] [address] [facility]07757[facility] [id number] Nov, [facility] [place] [address] [facility]07757[facility] [phone] Nov, [facility] [id number] [place] [address] Nov, [facility] [id number] [place] [address] Nov, [facility] [address] [address] Sep, [facility] [address] [address] Sep, [facility] [id number] [place] [address] Jul, [facility] [id number] [place] [address] Jul, [facility] [address] [address] Jul, [facility] [id number] [place] [address] Jul, [facility] [id number] [place] [address] Jul, [facility] [address] [address] Jul, [facility] [address] [facility] [id number] [place] [address] Jun, [facility] [address] [facility] [id number] [place] [address] Jun, [facility] [address] [id number] [place] [address] Jun, [facility] [address] [id number] [place] [address] Jun, [facility] [address] [facility] [id number] [place] [address] May, [facility] [address] [id number] [place] [address] May, [facility] [address] [id number] [place] [address] Feb, [facility] [address] [id number] [place] [address] Feb, [facility] [address] [id number] [place] [address] Feb, [facility] [address] [id number] [place] [address] Feb, [facility] [address] [id number] [place] [address] Jan, [facility] [address] [id number] [place] [address] Jan, [facility] [address] [id number] [place] [address] Jan, [facility] [address] [id number] [place] [address] Jan, [facility] [address] [id number] [place] [address] December, [facility] [address] [id number] [place] [address] December, [facility] [address] [id number] [place] [address] December, [facility] [address] [id number] [place] [address] December, [facility] [address] [id number] [place] [address] December, [facility] [address] [id number] [place] [address] December, [facility] [address] [id number] [place] [address] December, [facility] [address] [id number] [place] [address] December, [facility] [address] [id number] [place] [address] December, [facility] [address] [id number] [place] [address] December, [facility] [address] [id number] [place] [address] December, [facility] [address] [id number] [place] [address] December, [facility] [address] [id number] [place] [address] December, [facility] [address] [id number] [place] [address] December, [facility] [address] [id number] [place] [address] December, [facility] [address] [id number] [place] [address] December, [facility] [address] [id number] [place] [address] December, [facility] [address] [id number] [place] [address] Nov, [facility] [address] [id number] [place] [address] Nov, [facility] [address] [id number] [place] [address] Nov, [facility] [address] [id number] [place] [address] Nov, [facility] [address] [id number] [place] [address] Nov, [facility] [address] [id number] [place] [address] Nov, [facility] [address] [id number] [place] [address] Nov, [facility] [address] [id number] [place] [address] Nov, [facility] [address] [id number] [place] [address] Nov, [facility] [address] [id number] [place] [address] Nov, [facility] [address] [id number] [place] [address] Nov, [facility] [address] [id number] [place] [address] Nov, [facility] [address] [id number] [place] [address] Nov, [facility] [address] [id number] [place] [address] Nov, [facility] [address] [id number] [place] [address] Nov, [facility] [address] [id number] [place] [address] Nov, [facility] [address] [id number] [place] [address] Oct, [facility] [address] [id number] [place] [address] Oct, [facility] [address] [id number] [place] [address] Oct, [facility] [address] [id number] [place] [address] Oct, [facility] [address] [id number] [place] [address] Oct, [facility] [address] [id number] [place] [address] Oct, [facility] [address] [id number] [place] [address] Oct, [facility] [address] [id number] [place] [address] Oct, [facility] [address] [id number] [place] [address] Sep, [facility] [address] [id number] [place] [address] Sep, [facility] [address] [id number] [place] [address] Sep, [facility] [address] [id number] [place] [address] Sep, [facility] [address] [id number] [place] [address] Sep, [facility] [address] [id number] [place] [address] Sep, [facility] [address] [id number] [place] [address] Sep, [facility] [address] [id number] [place] [address] Sep, [facility] [address] [id number] [place] [address] Sep, [facility] [address] [id number] [place] [address] Sep, [facility] [address] [id number] [place] [address] Aug, [facility] [address] [id number] [place] [address] Aug, [facility] [address] [id number] [place] [address] Jul, [facility] [address] [id number] [place] [address] Jul, [facility] [address] [id number] [place] [address] Jul, [facility] [address] [id number] [place] [address] Jul, [facility] [address] [id number] [place] [address] Jul, [facility] [address] [id number] [place] [address] Jul, [facility] [id number] [place] [address] Jun, [facility] [address] [id number] [place] [address] Jun, [facility] [address] [id number] [place] [address] Jun, [facility] [address] [id number] [place] [address] May, [facility] [address] [id number] [place] [address] December, [facility] [address] [id number] [place] [address] December, [facility] [address] [id number] [place] [address] Jan, [facility] [id number] [place] [address] Jan, [facility] [address] [id number] [place] [address] Jan, [facility] [address] [id number] [place] [address] Jan, [facility] [address] [id number] [place] [address] December, [facility] [address] [facility] [id number] [place] [id number] December, [facility] [address] [id number] [place] [address] December, [facility] [id number] [place] [address] December, [facility] [address] [id number] [place] [address] December, [facility] [id number] [place] [address] Oct, [facility] [address] [id number] [place] [address] Jul, [facility] [id number] [place] [address] Jul, [facility] [address] [id number] [place] [address] Jun, IMMUNIZATIONS No Known Immunizations SOCIAL HISTORY Never Assessed REASON FOR VISIT PLAN OF CARE VITAL SIGNS Height 63 in 2014-01-03 Weight 192.5 lbs 2014-01-03 Temperature 97.4 degrees Fahrenheit 2014-01-03 Heart Rate 92 bpm 2014-01-03 Respiratory Rate 20 2014-01-03 Blood pressure systolic 158 mmHg 2014-01-03 Blood pressure diastolic 92 mmHg 2014-01-03 MEDICATIONS No Known Medications RESULTS No Results PROCEDURES Procedure Date Ordered Result Body Site COMPLETE CBC W/AUTO DIFF WBC January 03, 2014 LACTATE (LD) (LDH) ENZYME January 03, 2014 COMPREHEN METABOLIC PANEL January 03, 2014 VENIPUNCT, ROUTINE* January 03, 2014 STREP CULTURE January 03, 2014 URINE-NO MICRO January 03, 2014 INSTRUCTIONS MEDICATIONS ADMINISTERED No Known Medications [...]
--- OUTSIDE RECORDS SUMMARY | 2019-11-24 00:48 | XMS REPORT ---
Author Author Vilma REBOLLAR Organization [facility] Address [address] [place] [address] Care Team Providers Care Dev Ops Engineer Name Role Phone ANGELIA REBOLLAR Unavailable PROBLEMS Type Condition ICD9-CM Code ABZ03-PF Code Onset Dates Condition S tatus SNOMED Code Problem Elevated blood pressure reading without diagnosi s of hypertension 796.2 Active 602544045 Problem Irregular menstrual cycle N92.6 Acti ve 87568626 Problem Lower abdominal pain R10.30 Active 89676181 Problem Chronic gingivitis, plaque induced K05.10 Active 64528288 Problem Positive serology for syphilis A53.0 Active 787376284 Problem Constipation, unspecified constipation type K59.00 Active 38974310 Problem Fatigue, unspecified type R53.83 Acti ve 50953528 Problem Anxiety F41.9 Active 91905538 Problem Tobacco abuse Z72.0 Active 373215 05 ALLERGIES No Information ENCOUNTERS Encounter Location Date Diagnosis [facility] [address] [facility] [id number] [address] [place] [address] Jul, Pharyngitis J02.9 [facility] [id number] [place] [address] May, Positive serology for syphilis A53.0 [facility] [id number] [place] [address] May, [facility] [id number] [place] [address] Apr, [place] [address] [address] Apr, Concern about STD in female without diag nosis Z71.1 ; Needlestick injury due to hypodermic needle W46.0XXA ; Candidal vaginitis B37.3 and Trichomonas vaginitis A59.01 [facility] [address] [facility] [id number] [address] [place] [address] December, UTI symptoms R39.9 and Acute cystitis with hematuria N30.01 [place] [id number] [place] [id number] Feb, Acute cystitis without hematuria N30.[address] [id number] Oct, [facility] [address] [facility] [place] [id number] Oct, Dental examination Z01.20 [facility] [address] [address] Oct, Dental examination Z01.20 and Chronic gi ngivitis, plaque induced K05.10 [facility] [id number] [place] [address] Oct, Dental examination Z01.[address] [id number] Jun, [address] [id number] May, [address] [id number] May, [address] [id number] Apr, [address] [id number] Apr, [address] [id number] Feb, Encounter for test, result unknown Z32.[address] [id number] Feb, [address] [id number] Feb, [address] [id number] Feb, Encounter for test, result unknown Z32.00 [place] [id number] [place] [id number] Jan, [facility] [place] [address] [id number] [place] [id number] Jan, [facility] [place] [address] [id number] [place] [id number] Jan, [facility] [place] [address] [id number] [place] [id number] December, [facility] [place] [address] [id number] [place] [id number] December, [facility] [place] [address] [id number] [place] 138223903 Nov, [facility] [place] [address] [id number] [place] [id number] Nov, [facility] [place] [address] [id number] [place] 720[address] Nov, [facility] [place] [address] [id number] [place] [id number] Oct, [facility] [place] [address] [id number] [place] [id number] Oct, [facility] [place] [address] [id number] [place] [id number] Oct, [facility] [place] [address] [id number] [place] 738555488 Oct, [facility] [place] [address] [id number] [place] [id number] Sep, [facility] [place] [address] [id number] [place] [id number] Sep, [facility] [place] [address] [id number] [place] [id number] Sep, [facility] [place] [address] [id number] [place] 8794926[address] Sep, [facility] [place] [address] [id number] [place] [id number] Sep, [facility] [place] [address] [id number] [place] [id number] Aug, [facility] [place] [address] [id number] [place] [id number] Jul, [facility] [place] [address] [id number] [id number] Jul, [facility] [place] [address] [id number] Jun, [facility] [place] [address], [place] [id number] Jun, [facility] [place] [address], [place] [id number] Jun, [facility] [place] [address], [place] [id number] Jun, [facility] [place] [address], [place] [id number] Jun, [facility] [place] [address], [place] [id number] Jun, [facility] [place] [address], [place] [id number] May, [facility] [place] [address] [id number] May, [facility] [place] [address], [place] [id number] May, [facility] [address] [facility] [place] [address] Apr, Bronchitis J40 [facility] [place] [address] [id number] Mar, [facility] [place] [address] [id number] Feb, [facility] [place] [address] [id number] Feb, [facility] [place] [address] [id number] Feb, Sore throat J02.9 and Ear pain, right H92.01 [facility] [place] [address] [id number] Jan, [facility] [place] [address] [id number] Jan, Viral syndrome B34.9 ; Other seasonal allergic rhinitis J30.2 and Post-nasal drip R09.82 [facility] [place] [address] [id number] Jan, [place] [id number] [place] [id number] Nov, [address] [id number] Oct, test positive Z32.01 [place] [address] [address] Oct, [place] [address] [address] Oct, [place] [address] [address] Sep, Kidney stones N20.0 [place] [address] [address] 18 Sep, 2015 [place] [address] [address] Sep, Pelvic pain R10.2 ; Left lower quadrant pain R10.32 ; Vaginal discharge N89.8 ; Routine screening for STI (sexually transmitted infection) Z11.3 ; Unprotected sexual intercourse Z72.51 ; Kidney stone N20.0 ; History of dyspareunia in female Z87.42 and Screening for malignant neoplasm of cervix Z12.4 [place] [address] [address] Jun, Constipation, unspecified constipation t ype K59.00 ; Lower abdominal pain R10.30 ; Irregular menstrual cycle N92.6 ; Anxiety F41.9 ; Fatigue, unspecified type R53.83 and Tobacco abuse Z72.[address] [id number] Jun, [address] [id number] Jun, Nausea R11.[address] [id number] May, Alopecia L65.[address] [id number] May, [address] [id number] [place] [id number] Apr, [facility] [place] [address] [id number] [id number] Mar, [facility] [place] [address] 20131757[facility] [id number] Mar, [facility] [place] [address] [id number] [id number] Mar, [facility] [address] [facility] [place] [address] Mar, test negative V72.41 [facility] [place] [address] [id number] [id number] Mar, [facility] [place] [id number] [place] [address], [place] [id number] Mar, [facility] [place] [address] [id number] [id number] Feb, [facility] [place] [id number] [place] [address], [place] [id number] Feb, [facility] [place] [id number] [place] [address], [place] [id number] Feb, [facility] [place] [address] [id number] [id number] Feb, [facility] [place] [address] 20131757[facility] [id number] Feb, [facility] [place] [id number] [place] [address], [place] [id number] Feb, [facility] [place] [id number] [place] [address], [place] [id number] Feb, [facility] [place] [id number] [place] [address], [place] [id number] Feb, [facility] [place] [id number] [place] [address], [place] [id number] Feb, [facility] [place] [id number] [place] [address], [place] [id number] Feb, [facility] [place] [id number] [place] [address], [place] [id number] Feb, [facility] [place] [id number] [place] [address], [place] [id number] Feb, [facility] [place] [address] [id number] [place] [id number] Jan, [facility] [place] [address] [id number] [place] [id number] Jan, [facility] [place] [address] [id number] [id number] Jan, [facility] [address] [facility] [facility] [address] [id number] [facility] [place] [id number] Jan, Dental examination V72.2 [facility] [place] [address] [id number] [place] [id number] Jan, [facility] [place] [address] [id number] [place] [id number] Jan, [facility] [place] [address] [id number], [place] [id number] Jan, [facility] [place] [address] [id number] [id number] Jan, [facility] [place] [address] [id number] [place] [address], [place] [id number] Jan, [facility] [place] [address] [id number] [facility] [id number] Jan, [facility] [place] [address] [id number] [place] [address], [place] [id number] 14 Jan, 2015 [facility] [place] [address] [id number] [id number] Jan, [facility] [place] [address] [id number] [place] [address], [place] [id number] Jan, [facility] [place] [address] [id number] [place] [address], [place] [id number] Jan, [facility] [place] [address] [id number] [id number] Jan, [facility] [place] [address] [id number] [place] [id number] Jan, [facility] [place] [address] [id number] [place] [address], [place] [id number] Jan, [facility] [place] [address] [id number] [place] [address], [place] [id number] Jan, [facility] [place] [address] [id number] [place] [address], [place] [id number] Jan, [facility] [place] [address] [id number] [place] [id number] Jan, [facility] [place] [address] [id number] [place] [id number] Jan, [facility] [place] [address] [id number] [place] [id number] Jan, 2014 [facility] [place] [address] [id number] [place] [id number] Jan, 2014 [facility] [place] [address] [id number] [place] [id number] Jan, [facility] [place] [address] [id number] [place] [id number] Jan, [facility] [place] [address] [id number] [place] [id number] Jan, [facility] [place] [address] [id number] [place], [place] [id number] Jan, [facility] [place] [address] [id number] [place] [id number] Jan, [facility] [place] [address] [id number] [place] [id number] December, [facility] [place] [address] [id number] [place] [id number] December, [facility] [place] [address] [id number] [place], [place] [id number] December, [facility] [place] [address] [id number] [place] [id number] December, [facility] [place] [address] [id number] [place] [id number] December, [facility] [place] [address] [id number] [place] [id number] December, [facility] [place] [address] [id number] [place] [id number] December, [facility] [place] [address] [id number] [place] [id number] December, [facility] [place] [address] [id number] [place] [id number] December, [facility] [place] [address] [id number] [place] [id number] December, [facility] [place] [address] [id number] [place] [id number] December, [facility] [place] [address] [id number] [place], [place] [id number] December, [facility] [place] [address] [id number] [place], [place] [id number] December, [facility] [place] [address] [id number] [id number] December, [facility] [place] [address] [id number] [facility] [id number] Nov, [facility] [place] [address] [id number] [id number] Nov, [facility] [place] [address] [id number] [id number] Nov, [facility] [place] [address] [id number] [id number] Nov, [facility] [id number] [place] [address] Nov, [facility] [id number] [place] [address] Nov, [facility] [address] [address] Sep, [facility] [address] [address] Sep, [facility] [id number] [place] [address] Jul, [facility] [id number] [place] [address] Jul, [facility] [address] [address] Jul, [facility] [id number] [place] [address] Jul, [facility] [id number] [place] [address] Jul, [facility] [address] [address] Jul, [facility] [address] [facility] [id number] [place] [address] Jun, [facility] [address] [facility] [id number] [place] [address] Jun, [facility] [address] [id number] [place] [address] Jun, [facility] [address] [id number] [place] [address] Jun, [facility] [address] [facility] [id number] [place] [address] May, [facility] [address] [id number] [place] [address] May, [facility] [address] [id number] [place] [address] Feb, [facility] [address] [id number] [place] [address] Feb, [facility] [address] [id number] [place] [address] Feb, [facility] [address] [id number] [place] [address] Feb, [facility] [address] [id number] [place] [address] Jan, [facility] [address] [id number] [place] [address] Jan, [facility] [address] [id number] [place] [address] Jan, [facility] [address] [id number] [place] [address] Jan, [facility] [address] [id number] [place] [address] December, [facility] [address] [id number] [place] [address] December, [facility] [address] [id number] [place] [address] December, [facility] [address] [id number] [place] [address] December, [facility] [address] [id number] [place] [address] December, [facility] [address] [id number] [place] [address] December, [facility] [address] [id number] [place] [address] December, [facility] [address] [id number] [place] [address] December, [facility] [address] [id number] [place] [address] December, [facility] [address] [id number] [place] [address] December, [facility] [address] [id number] [place] [address] December, [facility] [address] [id number] [place] [address] December, [facility] [address] [id number] [place] [address] December, [facility] [address] [id number] [place] [address] December, [facility] [address] [id number] [place] [address] December, [facility] [address] [id number] [place] [address] December, [facility] [address] [id number] [place] [address] December, [facility] [address] [id number] [place] [address] Nov, [facility] [address] [id number] [place] [address] Nov, [facility] [address] [id number] [place] [address] Nov, [facility] [address] [id number] [place] [address] Nov, [facility] [address] [id number] [place] [address] Nov, [facility] [address] [id number] [place] [address] Nov, [facility] [address] [id number] [place] [address] Nov, [facility] [address] [id number] [place] [address] Nov, [facility] [address] [id number] [place] [address] Nov, [facility] [address] [id number] [place] [address] Nov, [facility] [address] [id number] [place] [address] Nov, [facility] [address] [id number] [place] [address] Nov, [facility] [address] [id number] [place] [address] Nov, [facility] [address] [id number] [place] [address] Nov, [facility] [address] [id number] [place] [address] Nov, [facility] [address] [id number] [place] [address] Nov, [facility] [address] [id number] [place] [address] Oct, [facility] [address] [id number] [place] [address] Oct, [facility] [address] [id number] [place] [address] Oct, [facility] [address] [id number] [place] [address] Oct, [facility] [address] [id number] [place] [address] Oct, [facility] [address] [id number] [place] [address] Oct, [facility] [address] [id number] [place] [address] Oct, [facility] [address] [id number] [place] [address] Oct, [facility] [address] [id number] [place] [address] Sep, [facility] [address] [id number] [place] [address] Sep, [facility] [address] [id number] [place] [address] Sep, [facility] [address] [id number] [place] [address] Sep, [facility] [address] [id number] [place] [address] Sep, [facility] [address] [id number] [place] [address] Sep, [facility] [address] [id number] [place] [address] Sep, [facility] [address] [id number] [place] [address] Sep, [facility] [address] [id number] [place] [address] Sep, [facility] [address] [id number] [place] [address] Sep, [facility] [address] [id number] [place] [address] Aug, [facility] [address] [id number] [place] [address] Aug, [facility] [address] [id number] [place] [address] Jul, [facility] [address] [id number] [place] [address] Jul, [facility] [address] [id number] [place] [address] Jul, [facility] [address] [id number] [place] [address] Jul, [facility] [address] [id number] [place] [address] Jul, [facility] [address] [id number] [place] [address] Jul, [facility] [id number] [place] [address] Jun, [facility] [address] [id number] [place] [address] Jun, [facility] [address] [id number] [place] [address] Jun, [facility] [address] [id number] [place] [address] May, [facility] [address] [id number] [place] [address] December, [facility] [address] [id number] [place] [address] December, [facility] [address] [id number] [place] [address] Jan, [facility] [id number] [place] [address] Jan, [facility] [address] [id number] [place] [address] Jan, [facility] [address] [id number] [place] [address] Jan, [facility] [address] [id number] [place] [address] December, [facility] [address] [id number] [place] [id number] December, [facility] [address] [id number] [place] [address] December, [facility] [id number] [place] [address] December, [facility] [address] [id number] [place] [address] December, [facility] [id number] [place] [address] Oct, [facility] [address] [id number] [place] [address] Jul, [facility] [id number] [place] [address] Jul, [facility] [address] [id number] [place] [address] Jun, IMMUNIZATIONS No Known Immunizations SOCIAL HISTORY [...]
--- OUTSIDE RECORDS SUMMARY | 2019-11-24 00:48 | XMS REPORT ---
Author Author Vilma REBOLLAR Organization [facility] Address [address] [place] [address] Care Team Providers Care Milliner Helper Name Role Phone ANGELIA REBOLLAR Unavailable PROBLEMS Type Condition ICD9-CM Code GHU01-QP Code Onset Dates Condition S tatus SNOMED Code Problem Elevated blood pressure reading without diagnosi s of hypertension 796.2 Active 304003999 Problem Irregular menstrual cycle N92.6 Acti ve 27234041 Problem Lower abdominal pain R10.30 Active 32569040 Problem Chronic gingivitis, plaque induced K05.10 Active 04642693 Problem Positive serology for syphilis A53.0 Active 511592919 Problem Constipation, unspecified constipation type K59.00 Active 12631801 Problem Fatigue, unspecified type R53.83 Acti ve 99986629 Problem Anxiety F41.9 Active 66148892 Problem Tobacco abuse Z72.0 Active 112302 05 ALLERGIES No Information ENCOUNTERS Encounter Location Date Diagnosis [facility] IN [facility] [address] [facility] [id number] [address] [place] [address] Jul, Pharyngitis J02.9 [facility] [id number] [place] [address] May, Positive serology for syphilis A53.0 [facility] [id number] [place] [address] May, [facility] [id number] [place] [address] Apr, [place] [address] [address] Apr, Concern about STD in female without diag nosis Z71.1 ; Needlestick injury due to hypodermic needle W46.0XXA ; Candidal vaginitis B37.3 and Trichomonas vaginitis A59.01 [facility] [address] [facility] [id number] [address] [place] [address] December, UTI symptoms R39.9 and Acute cystitis with hematuria N30.01 [place] [id number] [place] [id number] Feb, Acute cystitis without hematuria N30.[address] [id number] Oct, [facility] [address] [facility] [place] [id number] Oct, Dental examination Z01.20 [facility] [address] [address] Oct, Dental examination Z01.20 and Chronic gi ngivitis, plaque induced K05.10 [facility] [id number] [place] [address] Oct, Dental examination Z01.[address] [id number] Jun, [address] [id number] May, [address] [id number] May, [address] [id number] Apr, [address] [id number] Apr, [address] [id number] Feb, Encounter for test, result unknown Z32.[address] [id number] Feb, [address] [id number] Feb, [address] [id number] Feb, Encounter for test, result unknown Z32.00 [place] [id number] [place] [id number] Jan, [facility] [place] [address] [id number] [place] [address] Jan, [facility] [place] [address] [id number] [place] [id number] Jan, [facility] [place] [address] [id number] [place] [id number] December, [facility] [place] [address] [id number] [place] [id number] December, [facility] [place] [address] [id number] [place] [id number] Nov, [facility] [place] [address] [id number] [place] [address] Nov, [facility] [place] [address] [id number] [place] [id number] Nov, [facility] [place] [address] [id number] [place] [id number] Oct, [facility] [place] [address] [id number] [place] [id number] Oct, [facility] [place] [address] [id number] [place] [id number] Oct, [facility] [place] [address] [id number] [place] [id number] Oct, [facility] [place] [address] [id number] [place] [id number] Sep, [facility] [place] [address] [id number] [place] [id number] Sep, [facility] [place] [address] [id number] [place] [id number] Sep, [facility] [place] [address] [id number] [place] [id number] Sep, [facility] [place] [address] [id number] [place] [id number] Sep, [facility] [place] [address] [id number] [place] [id number] Aug, [facility] [place] [address] [id number] [place] [id number] Jul, [facility] [place] [address] [id number] [facility] [place] [id number] Jul, [facility] [place] [address], [place] [id number] Jun, [facility] [place] [address], [place] [id number] Jun, [facility] [place] [address], [place] [id number] Jun, [facility] [place] [address], [place] [id number] Jun, [facility] [place] [address], [place] [id number] Jun, [facility] [place] [address], [place] [id number] Jun, [facility] [place] [address], [place] [id number] May, [facility] [place] [address] [id number] May, [facility] [place] [address], [place] [id number] May, [facility] [place] [address] [id number] [place] [address] Apr, Bronchitis J40 [facility] [place] [address] [id number] Mar, [facility] [place] [address] [id number] Feb, [facility] [place] [address] [id number] Feb, [facility] [place] [address] [id number] Feb, Sore throat J02.9 and Ear pain, right H92.01 [facility] [place] [address] [id number] Jan, [facility] [place] [address] [id number] Jan, Viral syndrome B34.9 ; Other seasonal allergic rhinitis J30.2 and Post-nasal drip R09.82 [facility] [place] [address] [id number] Jan, [place] [id number] [place] [id number] Nov, [address] [id number] Oct, test positive Z32.01 [place] [address] [address] Oct, [place] [address] [address] Oct, [place] [address] [address] Sep, Kidney stones N20.0 [place] [address] [address] 18 Sep, 2015 [place] [address] [address] Sep, Pelvic pain R10.2 ; Left lower quadrant pain R10.32 ; Vaginal discharge N89.8 ; Routine screening for STI (sexually transmitted infection) Z11.3 ; Unprotected sexual intercourse Z72.51 ; Kidney stone N20.0 ; History of dyspareunia in female Z87.42 and Screening for malignant neoplasm of cervix Z12.4 [place] [address] [address] Jun, Constipation, unspecified constipation t ype K59.00 ; Lower abdominal pain R10.30 ; Irregular menstrual cycle N92.6 ; Anxiety F41.9 ; Fatigue, unspecified type R53.83 and Tobacco abuse Z72.[address] [id number] Jun, [address] [id number] Jun, Nausea R11.[address] [id number] May, Alopecia L65.[address] [id number] May, [address] [id number] [facility] [place] [id number] Apr, [facility] [place] [address] [id number] [id number] Mar, [facility] [place] [address] [id number] [id number] Mar, [facility] [place] [address] [id number] [id number] Mar, [facility] [place] [address] [id number] [place] [address] Mar, test negative V72.41 [facility] [place] [address] [id number] [id number] Mar, [facility] [place] [id number] [place] [address], [place] [id number] Mar, [facility] [place] [address] [id number] [id number] Feb, [facility] [place] [id number] [place] [address], [place] [id number] Feb, [facility] [place] [id number] [place] [address], [place] [id number] Feb, [facility] [place] [address] [id number] [id number] Feb, [facility] [place] [address] [id number] [id number] Feb, [facility] [place] [id number] [place] [address], [place] [id number] Feb, [facility] [place] [id number] [place] [address], [place] [id number] Feb, [facility] [place] [id number] [place] [address], [place] [id number] Feb, [facility] [place] [id number] [place] [address], [place] [id number] Feb, [facility] [place] [id number] [place] [address], [place] [id number] Feb, [facility] [place] [id number] [place] [address], [place] [id number] Feb, [facility] [place] [id number] [place] [address], [place] [id number] Feb, [facility] [place] [address] [id number] [place] [id number] Jan, [facility] [place] [address] [id number] [place] [id number] Jan, [facility] [place] [address] [id number] [facility] [id number] Jan, [facility] [address] [id number] [facility] [id number] Jan, Dental examination V72.2 [facility] [place] [address] [id number] [place] [id number] Jan, [facility] [place] [address] [id number] [place] [id number] Jan, [facility] [place] [address] [id number] [facility] [id number] Jan, [facility] [place] [address] [id number] [id number] Jan, [facility] [place] [address] [id number] [place] [address], [place] [id number] Jan, [facility] [place] [address] [id number] [id number] Jan, [facility] [place] [address] [id number] [place] [address], [place] [id number] 14 Jan, 2015 [facility] [place] [address] [id number] [id number] Jan, [facility] [place] [address] [id number] [place] [address], [place] [id number] Jan, [facility] [place] [address] [id number] [place] [address], [place] [id number] Jan, [facility] [place] [address] [id number] [facility] [id number] Jan, [facility] [place] [address] [id number] [place] [id number] Jan, [facility] [place] [address] [id number] [place] [address], [place] [id number] Jan, [facility] [place] [address] [id number] [place] [address], [place] [id number] Jan, [facility] [place] [address] [id number] [place] [address], [place] [id number] Jan, [facility] [place] [address] [id number] [place] [id number] Jan, [facility] [place] [address] [id number] [place] [id number] Jan, [facility] [place] [address] [id number] [place] [id number] Jan, 2014 [facility] [place] [address] [id number] [place] [id number] Jan, 2014 [facility] [place] [address] [id number] [place] [id number] Jan, [facility] [place] [address] [id number] [place] [id number] Jan, [facility] [place] [address] [id number] [place] [id number] Jan, [facility] [place] [address] [id number] [place] [id number] Jan, [facility] [place] [address] [id number] [place] [id number] Jan, [facility] [place] [address] [id number] [place] [id number] December, [facility] [place] [address] [id number] [place] [id number] December, [facility] [place] [address] [id number] [place] [id number] December, [facility] [place] [address] [id number] [place] [id number] December, [facility] [place] [address] [id number] [place] [id number] December, [facility] [place] [address] [id number] [place] [id number] December, [facility] [place] [address] [id number] [place] [id number] December, [facility] [place] [address] [id number] [place] [id number] December, [facility] [place] [address] [id number] [place] [id number] December, [facility] [place] [address] [id number] [place] [id number] December, [facility] [place] [address] [id number] [place] [id number] December, [facility] [place] [address] [id number] [place] [id number] December, [facility] [place] [address] [id number] [place] [id number] December, [facility] [place] [address] [id number] [id number] December, [facility] [place] [address] [id number] [id number] Nov, [facility] [place] [address] [id number] [id number] Nov, [facility] [place] [address] [id number] [id number] Nov, [facility] [place] [address] [id number] [id number] Nov, [facility] [id number] [place] [address] Nov, [facility] [id number] [place] [address] Nov, [facility] [address] [address] Sep, [facility] [address] [address] Sep, [facility] [id number] [place] [address] Jul, [facility] [id number] [place] [address] Jul, [facility] [address] [address] Jul, [facility] [id number] [place] [address] Jul, [facility] [id number] [place] [address] Jul, [facility] [address] [address] Jul, [facility] [address] [facility] [id number] [place] [address] Jun, [facility] [address] [facility] [id number] [place] [address] Jun, [facility] [address] [id number] [place] [address] Jun, [facility] [address] [id number] [place] [address] Jun, [facility] [address] [facility] [id number] [place] [address] May, [facility] [address] [id number] [place] [address] May, [facility] [address] [id number] [place] [address] Feb, [facility] [address] [id number] [place] [address] Feb, [facility] [address] [id number] [place] [address] Feb, [facility] [address] [id number] [place] [address] Feb, [facility] [address] [id number] [place] [address] Jan, [facility] [address] [id number] [place] [address] Jan, [facility] [address] [id number] [place] [address] Jan, [facility] [address] [id number] [place] [address] Jan, [facility] [address] [id number] [place] [address] December, [facility] [address] [id number] [place] [address] December, [facility] [address] [id number] [place] [address] December, [facility] [address] [id number] [place] [address] December, [facility] [address] [id number] [place] [address] December, [facility] [address] [id number] [place] [address] December, [facility] [address] [id number] [place] [address] December, [facility] [address] [id number] [place] [address] December, [facility] [address] [id number] [place] [address] December, [facility] [address] [id number] [place] [address] December, [facility] [address] [id number] [place] [address] December, [facility] [address] [id number] [place] [address] December, [facility] [address] [id number] [place] [address] December, [facility] [address] [id number] [place] [address] December, [facility] [address] [id number] [place] [address] December, [facility] [address] [id number] [place] [address] December, [facility] [address] [id number] [place] [address] December, [facility] [address] [id number] [place] [address] Nov, [facility] [address] [id number] [place] [address] Nov, [facility] [address] [id number] [place] [address] Nov, [facility] [address] [id number] [place] [address] Nov, [facility] [address] [id number] [place] [address] Nov, [facility] [address] [id number] [place] [address] Nov, [facility] [address] [id number] [place] [address] Nov, [facility] [address] [id number] [place] [address] Nov, [facility] [address] [id number] [place] [address] Nov, [facility] [address] [id number] [place] [address] Nov, [facility] [address] [id number] [place] [address] Nov, [facility] [address] [id number] [place] [address] Nov, [facility] [address] [id number] [place] [address] Nov, [facility] [address] [id number] [place] [address] Nov, [facility] [address] [id number] [place] [address] Nov, [facility] [address] [id number] [place] [address] Nov, [facility] [address] [id number] [place] [address] Oct, [facility] [address] [id number] [place] [address] Oct, [facility] [address] [id number] [place] [address] Oct, [facility] [address] [id number] [place] [address] Oct, [facility] [address] [id number] [place] [address] Oct, [facility] [address] [id number] [place] [address] Oct, [facility] [address] [id number] [place] [address] Oct, [facility] [address] [id number] [place] [address] Oct, [facility] [address] [id number] [place] [address] Sep, [facility] [address] [id number] [place] [address] Sep, [facility] [address] [id number] [place] [address] Sep, [facility] [address] [id number] [place] [address] Sep, [facility] [address] [id number] [place] [address] Sep, [facility] [address] [id number] [place] [address] Sep, [facility] [address] [id number] [place] [address] Sep, [facility] [address] [id number] [place] [address] Sep, [facility] [address] [id number] [place] [address] Sep, [facility] [address] [id number] [place] [address] Sep, [facility] [address] [id number] [place] [address] Aug, [facility] [address] [id number] [place] [address] Aug, [facility] [address] [id number] [place] [address] Jul, [facility] [address] [id number] [place] [address] Jul, [facility] [address] [id number] [place] [address] Jul, [facility] [address] [id number] [place] [address] Jul, [facility] [address] [id number] [place] [address] Jul, [facility] [address] [id number] [place] [address] Jul, [facility] [id number] [place] [address] Jun, [facility] [address] [id number] [place] [address] Jun, [facility] [address] [id number] [place] [address] Jun, [facility] [address] [id number] [place] [address] May, [facility] [address] [id number] [place] [address] December, [facility] [address] [id number] [place] [address] December, [facility] [address] [id number] [place] [address] Jan, [facility] [id number] [place] [address] Jan, [facility] [address] [id number] [place] [address] Jan, [facility] [address] [id number] [place] [address] Jan, [facility] [address] [id number] [place] [address] December, [facility] [address] [id number] [place] [id number] December, [facility] [address] [id number] [place] [address] December, [facility] [id number] [place] [address] December, [facility] [address] [id number] [place] [address] December, [facility] [id number] [place] [address] Oct, [facility] [address] [id number] [place] [address] Jul, [facility] [id number] [place] [address] Jul, [facility] [address] [id number] [place] [address] Jun, IMMUNIZATIONS No Known Immunizations SOCIAL HISTORY Never Assessed REASON FOR VISIT PLAN OF CARE VITAL SIGNS Height 63 in 2013-12-20 Weight 186 lbs 2013-12-20 Temperature 97 degrees Fahrenheit 2013-12-20 Heart Rate 84 bpm 2013-12-20 Respiratory Rate 20 2013-12-20 Blood pressure systolic 140 mmHg 2013-12-20 Blood pressure diastolic 72 mmHg 2013-12-20 MEDICATIONS No Known Medications RESULTS No Results PROCEDURES Procedure Date Ordered Result Body Site URINE-NO MICRO December 20, 2013 OB US, LIMITED, FETUS(S) December 20, 2013 INSTRUCTIONS MEDICATIONS ADMINISTERED No Known Medications [...]
--- OUTSIDE RECORDS SUMMARY | 2019-11-24 00:48 | XMS REPORT ---
Author Author Vilma Guthrie Organization [facility] Address [address] [place] [address] Care Team Providers Care Material Hauler Name Role Phone NELLY Guthrie Unavailable PROBLEMS Type Condition ICD9-CM Code IKL60-XN Code Onset Dates Condition S tatus SNOMED Code Problem Elevated blood pressure reading without diagnosi s of hypertension 796.2 Active 190375553 Problem Irregular menstrual cycle N92.6 Acti ve 10732762 Problem Lower abdominal pain R10.30 Active 50912563 Problem Chronic gingivitis, plaque induced K05.10 Active 66232786 Problem Positive serology for syphilis A53.0 Active 466994208 Problem Constipation, unspecified constipation type K59.00 Active 42764915 Problem Fatigue, unspecified type R53.83 Acti ve 54806439 Problem Anxiety F41.9 Active 79766939 Problem Tobacco abuse Z72.0 Active 977286 05 ALLERGIES No Information ENCOUNTERS Encounter Location Date Diagnosis [facility] [address] [facility] [id number] [address] [address] Jul, Pharyngitis J02.9 [facility] [id number] [place] [address] May, Positive serology for syphilis A53.0 [facility] [id number] [place] [address] May, [facility] [address] [address] Apr, [facility] [address] [address] Apr, Concern about STD in female without diag nosis Z71.1 ; Needlestick injury due to hypodermic needle W46.0XXA ; Candidal vaginitis B37.3 and Trichomonas vaginitis A59.01 [facility] [address] [facility] [id number] [address] [place] [address] December, UTI symptoms R39.9 and Acute cystitis with hematuria N30.01 [facility] [address] [id number] Feb, Acute cystitis without hematuria N30.[address] [id number] Oct, [facility] [address] [facility]757[address] [place] [id number] Oct, Dental examination Z01.20 [facility] [address] [address] Oct, Dental examination Z01.20 and Chronic gi ngivitis, plaque induced K05.10 [facility] [id number] [place] [address] Oct, Dental examination Z01.[address] [id number] Jun, [address] [id number] May, [address] [id number] May, [address] [id number] Apr, [address] [id number] Apr, [address] [id number] Feb, Encounter for test, result unknown Z32.[address] [id number] Feb, [address] [id number] Feb, [address] [id number] Feb, Encounter for test, result unknown Z32.[address] [id number] [place] [id number] Jan, [facility] [place] [address] [id number] [place] [id number] Jan, [facility] [place] [address] [id number] [place] 006[address]18 Jan, [facility] [place] [address] [id number] [place] [address]1970 December, [facility] [place] [address] [id number] [place] 4[address] December, [facility] [place] [address] [id number] [place] 84[address] Nov, [facility] [place] [address] [id number] [place] [address] Nov, [facility] [place] [address] [id number] [place] [address] Nov, [facility] [place] [address] [id number] [place] [address] Oct, [facility] [place] [address] [id number] [place] 1816[address]41 Oct, [facility] [place] [address] [id number] [place] [address]101836[address] Oct, [facility] [place] [address] [id number] [place] 123646348 Oct, [facility] [place] [address] [id number] [place] [id number] Sep, [facility] [place] [address] [id number] [place] 4298[address]249 Sep, [facility] [place] [address] [id number] [place] [id number] Sep, [facility] [place] [address] [id number] [place] [id number] Sep, [facility] [place] [address] [id number] [place] 955674686 Sep, [facility] [place] [address] [id number] [place] [address]50601[address] Aug, [facility] [place] [address] [id number] [place] [id number] Jul, [facility] [place] [address] [id number] [place] [address], [place] [id number] Jul, [facility] [place] [address], [place] [address]89[address] Jun, [facility] [place] [address], [place] [id number] Jun, [facility] [place] [address], [place] [id number] Jun, [facility] [place] [address], [place] [id number] Jun, [facility] [place] [address], [place] [address]40[address] Jun, [facility] [place] [address], [place] [id number] Jun, [facility] [place] [address], [place] [id number] May, [facility] [place] [address] [id number] May, [facility] [place] [address], [place] [address] May, [facility] [address] [id number] [place] [address] Apr, Bronchitis J40 [facility] [place] [address] [id number] Mar, [facility] [place] [address] [id number] Feb, [facility] [place] [address] [id number] Feb, [facility] [place] [address] [id number] Feb, Sore throat J02.9 and Ear pain, right H92.01 [facility] [place] [address] [id number] Jan, [facility] [place] [address] [id number] Jan, Viral syndrome B34.9 ; Other seasonal allergic rhinitis J30.2 and Post-nasal drip R09.82 [facility] [place] [address] [id number] Jan, [address] [id number] Nov, [address] [id number] Oct, test positive Z32.01 [address] [place] [address] [address] Oct, [place] [address] [address] Oct, [place] [address] [address] Sep, Kidney stones N20.0 [place] [address] [address] 18 Sep, 2015 [address] [place] [address] [address] Sep, Pelvic pain R10.2 ; Left lower quadrant pain R10.32 ; Vaginal discharge N89.8 ; Routine screening for STI (sexually transmitted infection) Z11.3 ; Unprotected sexual intercourse Z72.51 ; Kidney stone N20.0 ; History of dyspareunia in female Z87.42 and Screening for malignant neoplasm of cervix Z12.4 [place] [address] [address] 12 Jun, 2015 Constipation, unspecified constipation t ype K59.00 ; Lower abdominal pain R10.30 ; Irregular menstrual cycle N92.6 ; Anxiety F41.9 ; Fatigue, unspecified type R53.83 and Tobacco abuse Z72.[address] [id number] Jun, [address] [id number] Jun, Nausea R11.[address] [id number] May, Alopecia L65.[address] [id number] May, [facility] [place] [address] [id number] [address]89[address] Apr, [facility] [place] [address] [id number] [id number] Mar, [facility] [place] [id number] [place] [address], [place] [id number] Mar, [facility] [place] [address] [id number] [id number] Mar, [facility] [address] [facility] [place] [address] Mar, test negative V72.41 [facility] [place] [address] [id number] [id number] Mar, [facility] [place] [id number] [place] [address], [place] [id number] Mar, [facility] [place] [address] [id number] [id number] Feb, [facility] [place] [id number] [place] [address], [place] [id number] Feb, [facility] [place] [id number] [place] [address], [place] [id number] Feb, [facility] [place] [id number] [place] [address], [place] [id number] Feb, [facility] [place] [id number] [place] [address], [place] [id number] Feb, [facility] [place] [address] [id number] 869661841 Feb, [facility] [place] [id number] [place] [address], [place] [id number] Feb, [facility] [place] [id number] [place] [address], [place] [id number] Feb, [facility] [place] [id number] [place] [address], [place] [id number] Feb, [facility] [place] [id number] [place] [address], [place] [id number] Feb, [facility] [place] [address] [id number] [id number] Feb, [facility] [place] [id number] [place] [address], [place] [id number] Feb, [facility] [place] [address] [id number] [place] [phone] Jan, [facility] [place] [address] [id number] [place] 069247550 Jan, [facility] [place] [address] [id number] [place] [id number] Jan, [facility] [address] [facility] [address] [id number] [facility] [id number] Jan, Dental examination V72.2 [facility] [place] [address] [id number] [place] 786392804 Jan, [facility] [place] [address] [id number] [place] [id number] Jan, [facility] [place] [address] [id number] [id number] Jan, [facility] [place] [address] [id number] [place] [address], [place] [id number] Jan, [facility] [place] [address] [id number] [place] [address], PA [id number] 16 Jan, 2015 [facility] [place] [address] [place] [place] [id number] [id number] 15 Jan, 2015 [facility] [place] [address] [id number] [place] [address], [place] [id number] 14 Jan, 2015 [facility] [place] [address] [place] [place] [id number] 628137939 Jan, [facility] [place] [address] [id number] [place] [address], [place] [id number] Jan, [facility] [place] [address] [id number] [place] [address], [place] [id number] Jan, [facility] [place] [address] [id number] [place] [address], PA [id number] Jan, [facility] [place] [address] [id number] [place] [id number] Jan, [facility] [place] [address] [id number] [place] [address], [place] [id number] Jan, [facility] [place] [address] [id number] [place] [address], [place] [id number] Jan, [facility] [place] [address] [place] 105107828 Jan, [facility] [place] [address] [id number] [place] [id number] Jan, [facility] [place] [address] [id number] [place] 057402340 Jan, [facility] [place] [address] [id number] [place] 312381420 Jan, 2014 [facility] [place] [address] [id number] [place] [id number] Jan, 2014 [facility] [place] [address] [id number] [place] [id number] Jan, 2014 [facility] [place] [address] [id number] [place] 810321875 Jan, [facility] [place] [address] [id number] [place], [place] [id number] Jan, [facility] [place] [address] [id number] [place] [id number] Jan, [facility] [place] [address] [id number] [place] 545794224 Jan, [facility] [place] [address] [id number] [place] [phone] December, [facility] [place] [address] [id number] [place] 570417598 December, [facility] [place] [address] [id number] [place] 155240219 December, [facility] [place] [address] [id number] [place] 068251289 December, [facility] [place] [address] [id number] [place] [id number] December, [facility] [place] [address] [id number] [place] 067381742 December, [facility] [place] [address] [id number] [place] [id number] December, [facility] [place] [address] [id number] [place] [id number] December, [facility] [place] [address] [id number] [place] [id number] December, [facility] [place] [address] [id number] [place] [id number] December, [facility] [place] [address] [id number] [place] [id number] December, [facility] [place] [address] [id number] 213073439 December, [facility] [place] [address] [id number] [place] [id number] December, [facility] [place] [address] [id number] [id number] December, [facility] [place] [address] [id number] [facility] [id number] Nov, [facility] [place] [address] [facility]757[facility] [id number] Nov, [facility] [place] [address] [facility]757[facility] [id number] Nov, [facility] [place] [address] [facility]07757[facility] [id number] Nov, [facility] [id number] [place] [address] Nov, [facility] [id number] [place] [address] Nov, [facility] [address] [address] Sep, [facility] [address] [place] [address] Sep, [facility] [id number] [place] [address] Jul, [facility] [id number] [place] [address] Jul, [facility] [id number] [place] [address] Jul, [facility] [id number] [place] [address] Jul, [facility] [address] [place] [address] Jul, [facility] [address] [place] [address] Jul, [facility] [address] [facility] [id number] [place] [address] Jun, [facility] [address] [facility] [id number] [place] [address] Jun, [facility] [address] [id number] [place] [address] Jun, [facility] [address] [id number] [place] [address] Jun, [facility] [address] [facility] [id number] [place] [address] May, [facility] [address] [id number] [place] [address] May, [facility] [address] [id number] [place] [address] Feb, [facility] [address] [id number] [place] [address] Feb, [facility] [address] [id number] [place] [address] Feb, [facility] [address] [id number] [place] [address] Feb, [facility] [address] [id number] [place] [address] Jan, [facility] [address] [id number] [place] [address] Jan, [facility] [address] [facility] [id number] [place] [address] Jan, [facility] [address] [id number] [place] [address] Jan, [facility] [address] [id number] [place] [address] December, [facility] [address] [id number] [place] [address] December, [facility] [address] [facility] [id number] [place] [address] December, [facility] [address] [id number] [place] [address] December, [facility] [address] [facility] [id number] [place] [address] December, [facility] [address] [id number] [place] [address] December, [facility] [address] [id number] [place] [address] December, [facility] [address] [facility] [id number] [place] [address] December, [facility] [address] [id number] [place] [address] December, [facility] [address] [id number] [place] [address] December, [facility] [address] [id number] [place] [address] December, [facility] [address] [id number] [place] [address] December, [facility] [address] [id number] [place] [address] December, [facility] [address] [id number] [place] [address] December, [facility] [address] [id number] [place] [address] December, [facility] [address] [id number] [place] [address] December, [facility] [address] [id number] [place] [address] December, [facility] [address] [id number] [place] [address] Nov, [facility] [address] [id number] [place] [address] Nov, [facility] [address] [facility] [id number] [place] [address] Nov, [facility] [address] [id number] [place] [address] Nov, [facility] [address] [id number] [place] [address] Nov, [facility] [address] [id number] [place] [address] Nov, [facility] [address] [facility] [id number] [place] [address] Nov, [facility] [address] [id number] [place] [address] Nov, [facility] [address] [id number] [place] [address] Nov, [facility] [address] [id number] [place] [address] Nov, [facility] [address] [id number] [place] [address] Nov, [facility] [address] [id number] [place] [address] Nov, [facility] [address] [id number] [place] [address] Nov, [facility] [address] [id number] [place] [address] Nov, [facility] [address] [id number] [place] [address] Nov, [facility] [address] [id number] [place] [address] Nov, [facility] [address] [id number] [place] [address] Oct, [facility] [address] [id number] [place] [address] Oct, [facility] [address] [id number] [place] [address] Oct, [facility] [address] [facility] [id number] [place] [address] Oct, [facility] [address] [facility] [id number] [place] [address] Oct, [facility] [address] [id number] [place] [address] Oct, [facility] [address] [id number] [place] [address] Oct, [facility] [address] [facility] [id number] [place] [address] Oct, [facility] [address] [id number] [place] [address] Sep, [facility] [address] [id number] [place] [address] Sep, [facility] [address] [id number] [place] [address] Sep, [facility] [address] [id number] [place] [address] Sep, [facility] [address] [id number] [place] [address] Sep, [facility] [address] [id number] [place] [address] Sep, [facility] [address] [id number] [place] [address] Sep, [facility] [address] [facility] [id number] [place] [address] Sep, [facility] [address] [id number] [place] [address] Sep, [facility] [address] [id number] [place] [address] Sep, [facility] [address] [id number] [place] [address] Aug, [facility] [address] [id number] [place] [address] Aug, [facility] [address] [id number] [place] [address] Jul, [facility] [address] [id number] [place] [address] Jul, [facility] [address] [id number] [place] [address] Jul, [facility] [address] [id number] [place] [address] Jul, [facility] [address] [id number] [place] [address] Jul, [facility] [address] [id number] [place] [address] Jul, [facility] [id number] [place] [address] Jun, [facility] [address] [id number] [place] [address] Jun, [facility] [address] [id number] [place] [address] Jun, [facility] [address] [id number] [place] [address] May, [facility] [address] [id number] [place] [address] December, [facility] [address] [id number] [place] [address] December, [facility] [address] [id number] [place] [address] Jan, [facility] [address] [id number] [place] [address] Jan, [facility] [address] [id number] [place] [address] Jan, [facility] [address] [id number] [place] [address] Jan, [facility] [address] [id number] [place] [address] December, [facility] [address] [facility] [id number] [place] [id number] December, [facility] [address] [id number] [place] [address] December, [facility] [id number] [place] [address] December, [facility] [address] [id number] [place] [address] December, [facility] [id number] [place] [address] Oct, [facility] [address] [id number] [place] [address] Jul, [facility] [address] [id number] [place] [address] Jul, [facility] [address] [id number] [place] [address] Jun, IMMUNIZATIONS No Known Immunizations SOCIAL HISTORY [...]
--- OUTSIDE RECORDS SUMMARY | 2019-11-24 00:48 | XMS REPORT ---
Author Author Vilma PEÑALOZA Organization [facility] Address [address] [place] [address] Care Team Providers Care Non Destructive Evaluation Manager Name Role Phone WILMAN PEÑALOZA Unavailable PROBLEMS Type Condition ICD9-CM Code RWM70-MY Code Onset Dates Condition S tatus SNOMED Code Problem Elevated blood pressure reading without diagnosi s of hypertension 796.2 Active 032465535 Problem Irregular menstrual cycle N92.6 Acti ve 44049369 Problem Lower abdominal pain R10.30 Active 22420663 Problem Chronic gingivitis, plaque induced K05.10 Active 50144780 Problem Positive serology for syphilis A53.0 Active 609080889 Problem Constipation, unspecified constipation type K59.00 Active 96883664 Problem Fatigue, unspecified type R53.83 Acti ve 59918927 Problem Anxiety F41.9 Active 58279257 Problem Tobacco abuse Z72.0 Active 512180 05 ALLERGIES No Information ENCOUNTERS Encounter Location Date Diagnosis [facility] [address] [facility] [id number] [address] [place] [address] Jul, Pharyngitis J02.9 [facility] [id number] [place] [address] May, Positive serology for syphilis A53.0 [facility] [id number] [place] [address] May, [facility] [id number] [place] [address] Apr, [place] [address] [address] Apr, Concern about STD in female without diag nosis Z71.1 ; Needlestick injury due to hypodermic needle W46.0XXA ; Candidal vaginitis B37.3 and Trichomonas vaginitis A59.01 [facility] [address] [facility] [id number] [address] [place] [address] December, UTI symptoms R39.9 and Acute cystitis with hematuria N30.[address] [id number] Feb, Acute cystitis without hematuria N30.[address] [id number] Oct, [facility] [address] [facility] [place] [id number] Oct, Dental examination Z01.20 [facility] [id number] [place] [address] Oct, Dental examination Z01.20 and Chronic gi ngivitis, plaque induced K05.10 [facility] [id number] [place] [address] Oct, Dental examination Z01.[address] [id number] Jun, [address] [id number] May, [address] [id number] May, [address] [id number] Apr, [address] [id number] Apr, [address] [id number] Feb, Encounter for test, result unknown Z32.[address] [id number] Feb, [address] [id number] Feb, [address] [id number] Feb, Encounter for test, result unknown Z32.00 [address] [place] [id number] Jan, [facility] [place] [address] [id number] [place] [id number] Jan, [facility] [place] [address] [id number] [place] [id number] Jan, [facility] [place] [address] [id number] [place] [id number] December, [facility] [place] [address] [id number] [place] [id number] December, [facility] [place] [address] [id number] [place] [id number] Nov, [facility] [place] [address] [id number] [place] [id number] Nov, [facility] [place] [address] [id number] [place] [id number] Nov, [facility] [place] [address] [id number] [place] [id number] Oct, [facility] [place] [address] [id number] [place] [id number] Oct, [facility] [place] [address] [id number] [place] [id number] Oct, [facility] [place] [address] [id number] [place] [id number] Oct, [facility] [place] [address] [id number] [place] [id number] Sep, [facility] [place] [address] [id number] [place] 790[place]6082 Sep, [facility] [place] [address] [id number] [place] [id number] Sep, [facility] [place] [address] [id number] [place] [id number] Sep, [facility] [place] [address] [id number] [place] [id number] Sep, [facility] [place] [address] [id number] [place] [id number] Aug, [facility] [place] [address] [id number] [place] [id number] Jul, [facility] [place] [address] [id number] [place] [id number] Jul, [facility] [place] [address], [place] [id number] Jun, [facility] [place] [address], [place] [id number] Jun, [facility] [place] [address], [place] [id number] Jun, [facility] [place] [address], [place] [id number] Jun, [facility] [place] [address], [place] [id number] Jun, [facility] [place] [address], [place] [id number] Jun, [facility] [place] [address], [place] [id number] May, [facility] [place] [address], [place] [id number] May, [facility] [place] [address] [id number] May, [facility] [address] [id number] [place] [address] Apr, Bronchitis J40 [facility] [place] [address] [id number] Mar, [facility] [place] [address] [id number] Feb, [facility] [place] [address] [id number] Feb, [facility] [place] [address] [id number] Feb, Sore throat J02.9 and Ear pain, right H92.01 [facility] [place] [address] [id number] Jan, [facility] [place] [address] [id number] Jan, Viral syndrome B34.9 ; Other seasonal allergic rhinitis J30.2 and Post-nasal drip R09.82 [facility] [place] [address] [id number] Jan, [place] [id number] [place] [address] [id number] Nov, [address] [id number] Oct, test positive Z32.01 [place] [address] [address] Oct, [place] [address] [address] Oct, [place] [address] [address] Sep, Kidney stones N20.0 [place] [address] [address] 18 Sep, 2015 [place] [address] [address] Sep, Pelvic pain R10.2 ; Left lower quadrant pain R10.32 ; Vaginal discharge N89.8 ; Routine screening for STI (sexually transmitted infection) Z11.3 ; Unprotected sexual intercourse Z72.51 ; Kidney stone N20.0 ; History of dyspareunia in female Z87.42 and Screening for malignant neoplasm of cervix Z12.4 [place] [address] [address] 12 Jun, 2015 Constipation, unspecified constipation t ype K59.00 ; Lower abdominal pain R10.30 ; Irregular menstrual cycle N92.6 ; Anxiety F41.9 ; Fatigue, unspecified type R53.83 and Tobacco abuse Z72.[address] [id number] Jun, [address] [id number] Jun, Nausea R11.[address] [id number] May, Alopecia L65.[address] [id number] May, [facility] [place] [address] [id number] [id number] Apr, [facility] [place] [address] [id number] [id number] Mar, [facility] [place] [id number] [place] [address], [place] [id number] Mar, [facility] [place] [address] [id number] [id number] Mar, [facility] [address] [id number] [place] [address] Mar, test negative V72.41 [facility] [place] [address] [id number] [place] [address], [place] [id number] Mar, [facility] [place] [id number] [place] [address], [place] [id number] Mar, [facility] [place] [id number] [place] [address], [place] [id number] Feb, [facility] [place] [id number] [place] [address], [place] [id number] Feb, [facility] [place] [id number] [place] [address], [place] [id number] Feb, [facility] [place] [id number] [place] [address], [place] [id number] Feb, [facility] [place] [id number] [place] [address], [place] [id number] Feb, [facility] [place] [id number] [place] [address], [place] [id number] Feb, [facility] [place] [address], [place] [id number] Feb, [facility] [place] [address] [id number] [place] [address], [place] [id number] Feb, [facility] [place] [id number] [place] [address], [place] [id number] Feb, [facility] [place] [id number] [place] [address], [place] [id number] Feb, [facility] [place] [id number] [place] [address], [place] [id number] Feb, [facility] [place] [id number] [place] [address], [place] [id number] Feb, [facility] [place] [address] [id number] [facility] [id number] Jan, [facility] [place] [address] [id number] [place] [id number] Jan, [facility] [place] [address] [place] [address] [id number] [facility] [id number] Jan, [facility] [address] [facility] [address] [id number] [facility] [id number] Jan, Dental examination V72.2 [facility] [place] [address] [id number] [place] [address], [place] [id number] Jan, [facility] [place] [address] [id number] [place] [address], [place] [id number] Jan, [facility] [place] [address] [id number] [facility] [place] [id number] Jan, [facility] [place] [address] [address] [id number] [place] [address], [place] [id number] Jan, [facility] [place] [address], [place] [id number] Jan, [facility] [place] [address] [id number] [place] [address], [place] [id number] 15 Jan, 2015 [facility] [place] [address] [id number] [place] [address], [place] [id number] 14 Jan, 2015 [facility] [place] [address] [id number] [place] [address], [place] [id number] Jan, [facility] [place] [address] [address] [id number] [place] [address], [place] [id number] Jan, [facility] [place] [address] [id number] [place] [address], [place] [id number] Jan, [facility] [place] [address] [id number] [place] [address], [place] [id number] Jan, [facility] [place] [address] [id number] [place] [address], [place] [id number] Jan, [facility] [place] [address] [id number] [place] [address], [place] [id number] Jan, [facility] [place] [address] [id number] [place] [address], [place] [id number] Jan, [facility] [place] [address], [place] [id number] Jan, 2014 [facility] [place] [address] [id number] [place] [id number] Jan, [facility] [place] [address] [id number] [place] [id number] Jan, 2014 [facility] [place] [address] [id number] [place] [id number] Jan, 2014 [facility] [place] [address] [id number] [place] [id number] Jan, 2014 [facility] [place] [address] [id number] [place] [id number] Jan, 2014 [facility] [place] [address] [id number] [place] [id number] Jan, [facility] [place] [address] [id number] [place] [id number] Jan, [facility] [place] [address] [id number] [place] [id number] Jan, [facility] [place] [address] [id number] [place] [id number] Jan, [facility] [place] [address] [id number] [place] [id number] December, [facility] [place] [address] [id number] [place] [id number] December, [facility] [place] [address] [id number] [place] [id number] December, [facility] [place] [address] [id number] [place] [id number] December, [facility] [place] [address] [id number] [place] [id number] December, [facility] [place] [address] [id number] [place] [id number] December, [facility] [place] [address] [id number] [place] [id number] December, [facility] [place] [address] [id number] [place] [id number] December, [facility] [place] [address] [id number] [place] [id number] December, [facility] [place] [address] [id number] [place] [id number] December, [facility] [place] [address] [id number] [place] [id number] December, [facility] [place] [address] [id number] [place] [id number] December, [facility] [place] [address] [id number] [place] [id number] December, [facility] [place] [address] [facility]07757[facility] [id number] December, [facility] [place] [address] [id number] [facility] [id number] Nov, [facility] [place] [address] [id number] [facility] [place] [id number] Nov, [facility] [place] [address] [facility]07757[facility] [id number] Nov, [facility] [place] [address] [facility]07757[facility] [id number] Nov, [facility] [id number] [place] [address] Nov, [facility] [id number] [place] [address] Nov, [facility] [address] [address] Sep, [facility] [address] [place] [address] Sep, [facility] [id number] [place] [address] Jul, [facility] [id number] [place] [address] Jul, [facility] [address] [address] Jul, [facility] [id number] [place] [address] Jul, [facility] [id number] [place] [address] Jul, [facility] [id number] [place] [address] Jul, [facility] [address] [facility] [id number] [place] [address] Jun, [facility] [address] [id number] [place] [address] Jun, [facility] [address] [id number] [place] [address] Jun, [facility] [address] [id number] [place] [address] Jun, [facility] [address] [id number] [place] [address] May, [facility] [address] [id number] [place] [address] May, [facility] [address] [id number] [place] [address] Feb, [facility] [address] [id number] [place] [address] Feb, [facility] [address] [id number] [place] [address] Feb, [facility] [address] [id number] [place] [address] Feb, [facility] [address] [id number] [place] [address] Jan, [facility] [address] [id number] [place] [address] Jan, [facility] [address] [id number] [place] [address] Jan, [facility] [address] [id number] [place] [address] Jan, [facility] [address] [id number] [place] [address] December, [facility] [address] [id number] [place] [address] December, [facility] [address] [id number] [place] [address] December, [facility] [address] [id number] [place] [address] December, [facility] [address] [facility] [id number] [place] [address] December, [facility] [address] [id number] [place] [address] December, [facility] [address] [id number] [place] [address] December, [facility] [address] [id number] [place] [address] December, [facility] [address] [id number] [place] [address] December, [facility] [address] [id number] [place] [address] December, [facility] [address] [id number] [place] [address] December, [facility] [address] [id number] [place] [address] December, [facility] [address] [id number] [place] [address] December, [facility] [address] [id number] [place] [address] December, [facility] [address] [id number] [place] [address] December, [facility] [address] [facility] [id number] [place] [address] December, [facility] [address] [id number] [place] [address] December, [facility] [address] [id number] [place] [address] Nov, [facility] [address] [id number] [place] [address] Nov, [facility] [address] [id number] [place] [address] Nov, [facility] [address] [id number] [place] [address] Nov, [facility] [address] [id number] [place] [address] Nov, [facility] [address] [id number] [place] [address] Nov, [facility] [address] [id number] [place] [address] Nov, [facility] [address] [id number] [place] [address] Nov, [facility] [address] [id number] [place] [address] Nov, [facility] [address] [id number] [place] [address] Nov, [facility] [address] [id number] [place] [address] Nov, [facility] [address] [id number] [place] [address] Nov, [facility] [address] [id number] [place] [address] Nov, [facility] [address] [id number] [place] [address] Nov, [facility] [address] [id number] [place] [address] Nov, [facility] [address] [id number] [place] [address] Nov, [facility] [address] [id number] [place] [address] Oct, [facility] [address] [id number] [place] [address] Oct, [facility] [address] [id number] [place] [address] Oct, [facility] [address] [id number] [place] [address] Oct, [facility] [address] [id number] [place] [address] Oct, [facility] [address] [id number] [place] [address] Oct, [facility] [address] [id number] [place] [address] Oct, [facility] [address] [id number] [place] [address] Oct, [facility] [address] [id number] [place] [address] Sep, [facility] [address] [id number] [place] [address] Sep, [facility] [address] [id number] [place] [address] Sep, [facility] [address] [id number] [place] [address] Sep, [facility] [address] [id number] [place] [address] Sep, [facility] [address] [id number] [place] [address] Sep, [facility] [address] [id number] [place] [address] Sep, [facility] [address] [id number] [place] [address] Sep, [facility] [address] [id number] [place] [address] Sep, [facility] [address] [id number] [place] [address] Sep, [facility] [address] [id number] [place] [address] Aug, [facility] [address] [id number] [place] [address] Aug, [facility] [address] [id number] [place] [address] Jul, [facility] [address] [id number] [place] [address] Jul, [facility] [address] [id number] [place] [address] Jul, [facility] [address] [id number] [place] [address] Jul, [facility] [address] [id number] [place] [address] Jul, [facility] [address] [id number] [place] [address] Jul, [facility] [id number] [place] [address] Jun, [facility] [address] [id number] [place] [address] Jun, [facility] [address] [id number] [place] [address] Jun, [facility] [address] [id number] [place] [address] May, [facility] [address] [id number] [place] [address] December, [facility] [address] [id number] [place] [address] December, [facility] [address] [id number] [place] [address] Jan, [facility] [address] [id number] [place] [address] Jan, [facility] [address] [id number] [place] [address] Jan, [facility] [address] [id number] [place] [address] Jan, [facility] [address] [id number] [place] [address] December, [facility] [address] [facility] [id number] [place] [id number] December, [facility] [address] [id number] [place] [address] December, [facility] [id number] [place] [address] December, [facility] [address] [id number] [place] [address] December, [facility] [id number] [place] [address] Oct, [facility] [address] [id number] [place] [address] Jul, [facility] [id number] [place] [address] Jul, [facility] [address] [id number] [place] [address] Jun, IMMUNIZATIONS No Known Immunizations SOCIAL HISTORY Never Assessed REASON FOR VISIT PLAN OF CARE VITAL SIGNS Height 63 in 2013-11-30 Weight 182.44 lbs 2013-11-30 Blood pressure systolic 140 mmHg 2013-11-30 Blood pressure diastolic 82 mmHg 2013-11-30 MEDICATIONS No Known Medications RESULTS No Results PROCEDURES Procedure Date Ordered Result Body Site BIOPHYS PROFILE W/NST November 30, 2013 URINE-NO MICRO November 30, 2013 INSTRUCTIONS MEDICATIONS ADMINISTERED No Known Medications [...]
[2019-11-24] MEDS ORDERED: SERT100T8 (00:49)
[2019-11-24] MEDS ORDERED: ESCI10TA55 (00:49)
--- OUTSIDE RECORDS SUMMARY | 2019-11-24 00:49 | XMS REPORT ---
Author Author Vilma REBOLLAR Organization [facility] Address [address] [place] [address] Care Team Providers Care Overedge Sewer Name Role Phone ANGELIA REBOLLAR Unavailable PROBLEMS Type Condition ICD9-CM Code COJ80-YE Code Onset Dates Condition S tatus SNOMED Code Problem Elevated blood pressure reading without diagnosi s of hypertension 796.2 Active 670829934 Problem Irregular menstrual cycle N92.6 Acti ve 20364187 Problem Lower abdominal pain R10.30 Active 21836418 Problem Chronic gingivitis, plaque induced K05.10 Active 37557933 Problem Positive serology for syphilis A53.0 Active 214924690 Problem Constipation, unspecified constipation type K59.00 Active 64877962 Problem Fatigue, unspecified type R53.83 Acti ve 43697012 Problem Anxiety F41.9 Active 54753751 Problem Tobacco abuse Z72.0 Active 851084 05 ALLERGIES No Information ENCOUNTERS Encounter Location Date Diagnosis [facility] [address] [facility] [id number] [address] [place] [address] Jul, Pharyngitis J02.9 [facility] [id number] [place] [address] May, Positive serology for syphilis A53.0 [facility] [id number] [place] [address] May, [facility] [id number] [place] [address] Apr, [place] [address] [address] Apr, Concern about STD in female without diag nosis Z71.1 ; Needlestick injury due to hypodermic needle W46.0XXA ; Candidal vaginitis B37.3 and Trichomonas vaginitis A59.01 [facility] [address] [id number] [address] [place] [address] December, UTI symptoms R39.9 and Acute cystitis with hematuria N30.01 [address] [id number] [place] [id number] Feb, Acute cystitis without hematuria N30.[address] [id number] Oct, [facility] [address] [id number] [place] [id number] Oct, Dental examination Z01.20 [facility] [address] [address] Oct, Dental examination Z01.20 and Chronic gi ngivitis, plaque induced K05.10 [facility] [id number] [place] [address] Oct, Dental examination Z01.[address] [id number] Jun, [address] [id number] May, [address] [id number] May, [address] [id number] Apr, [address] [id number] Apr, [address] [id number] Feb, Encounter for test, result unknown Z32.[address] [id number] Feb, [address] [id number] Feb, [address] [id number] Feb, Encounter for test, result unknown Z32.00 [id number] [place] [id number] Jan, [facility] [place] [address] [id number] [place] [id number] Jan, [facility] [place] [address] [id number] [place] [id number] Jan, [facility] [place] [address] [id number] [place] [address] December, [facility] [place] [address] [id number] [place] [address] December, [facility] [place] [address] [id number] [place] [id number] Nov, [facility] [place] [address] [id number] [place] [id number] Nov, [facility] [place] [address] [id number] [place] [id number] Nov, [facility] [place] [address] [id number] [place] [address] Oct, [facility] [place] [address] [id number] [place] [id number] Oct, [facility] [place] [address] [id number] [place] 974[address]3639 Oct, [facility] [place] [address] [id number] [place] [address] Oct, [facility] [place] [address] [id number] [place] 600078889 Sep, [facility] [place] [address] [id number] [place] [address]82[address]6219 Sep, [facility] [place] [address] [id number] [place] [id number] Sep, [facility] [place] [address] [id number] [place] 537[address] Sep, [facility] [place] [address] [id number] [place] [id number] Sep, [facility] [place] [address] [id number] [place] [address]58[address]8340 Aug, [facility] [place] [address] [id number] [place] [id number] Jul, [facility] [place] [address] [id number] [id number] Jul, [facility] [place] [address], [place] [id number] Jun, [facility] [place] [address], [place] [id number] Jun, [facility] [place] [address], [place] [id number] Jun, [facility] [place] [address], [place] [id number] Jun, [facility] [place] [address], [place] [id number] Jun, [facility] [place] [address], [place] [id number] Jun, [facility] [place] [address], [place] [id number] May, [facility] [place] [address] [id number] May, [facility] [place] [address], [place] [id number] May, [facility] [address] [id number] [place] [address] Apr, Bronchitis J40 [facility] [place] [address] [id number] Mar, [facility] [place] [address] [id number] Feb, [facility] [place] [address] [id number] Feb, [facility] [place] [address] [id number] Feb, Sore throat J02.9 and Ear pain, right H92.01 [facility] [place] [address] [id number] Jan, [facility] [place] [address] [id number] Jan, Viral syndrome B34.9 ; Other seasonal allergic rhinitis J30.2 and Post-nasal drip R09.82 [facility] [place] [address] [id number] Jan, [place] [id number] [place] [id number] Nov, [address] [id number] Oct, test positive Z32.01 [place] [address] [address] Oct, [place] [address] [address] Oct, [place] [address] [address] Sep, Kidney stones N20.0 [place] [address] [address] 18 Sep, 2015 [place] [address] [address] Sep, Pelvic pain R10.2 ; Left lower quadrant pain R10.32 ; Vaginal discharge N89.8 ; Routine screening for STI (sexually transmitted infection) Z11.3 ; Unprotected sexual intercourse Z72.51 ; Kidney stone N20.0 ; History of dyspareunia in female Z87.42 and Screening for malignant neoplasm of cervix Z12.4 [place] [address] [address] Jun, Constipation, unspecified constipation t ype K59.00 ; Lower abdominal pain R10.30 ; Irregular menstrual cycle N92.6 ; Anxiety F41.9 ; Fatigue, unspecified type R53.83 and Tobacco abuse Z72.[address] [id number] Jun, [address] [id number] Jun, Nausea R11.[address] [id number] May, Alopecia L65.[address] [id number] May, [address] [id number] [facility] [id number] Apr, [facility] [place] [address] [id number] [id number] Mar, [facility] [place] [address] [id number] [id number] Mar, [facility] [place] [address] [id number] [id number] Mar, [facility] [address] [id number] [place] [address] Mar, test negative V72.41 [facility] [place] [address] [id number] [id number] Mar, [facility] [place] [id number] [place] [address], [place] [id number] Mar, [facility] [place] [address] [id number] [id number] Feb, [facility] [place] [id number] [place] [address], [place] [id number] Feb, [facility] [place] [id number] [place] [address], [place] [id number] Feb, [facility] [place] [address] [id number] [id number] Feb, [facility] [place] [address] [id number] [id number] Feb, [facility] [place] [id number] [place] [address], [place] [id number] Feb, [facility] [place] [id number] [place] [address], [place] [id number] Feb, [facility] [place] [id number] [place] [address], [place] [id number] Feb, [facility] [place] [id number] [place] [address], [place] [id number] Feb, [facility] [place] [id number] [place] [address], [place] [id number] Feb, [facility] [place] [id number] [place] [address], [place] [id number] Feb, [facility] [place] [id number] [place] [address], [place] [id number] Feb, [facility] [place] [address] [id number] [place] [id number] Jan, [facility] [place] [address] [id number] [place] [id number] Jan, [facility] [place] [address] [id number] [facility] [id number] Jan, [facility] [address] [id number] [facility] [place] [id number] Jan, Dental examination V72.2 [facility] [place] [address] [id number] [place] [id number] Jan, [facility] [place] [address] [id number] [place] [id number] Jan, [facility] [place] [address] [id number] [facility] [id number] Jan, [facility] [place] [address] [id number] [facility] [id number] Jan, [facility] [place] [address] [id number] [place] [address], [place] [id number] Jan, [facility] [place] [address] [id number] [facility] [id number] Jan, [facility] [place] [address] [id number] [place] [address], [place] [id number] 14 Jan, 2015 [facility] [place] [address] [id number] [facility] [id number] Jan, [facility] [place] [address] [id number] [place] [address], [place] [id number] Jan, [facility] [place] [address] [id number] [place] [address], [place] [id number] Jan, [facility] [place] [address] [id number] [facility] [id number] Jan, [facility] [place] [address] [id number] [place] [id number] Jan, [facility] [place] [address] [id number] [place] [address], [place] [id number] Jan, [facility] [place] [address] [id number] [place] [address], [place] [id number] Jan, [facility] [place] [address] [id number] [place] [address], [place] [id number] Jan, [facility] [place] [address] [id number] [place] [id number] Jan, [facility] [place] [address] [id number] [place] [id number] Jan, [facility] [place] [address] [id number] [place] [id number] Jan, 2014 [facility] [place] [address] [id number] [place] [id number] Jan, 2014 [facility] [place] [address] [id number] [place] [id number] Jan, [facility] [place] [address] [id number] [place] [id number] Jan, [facility] [place] [address] [id number] [place] [id number] Jan, [facility] [place] [address] [id number] [place] [id number] Jan, [facility] [place] [address] [id number] [place] [id number] Jan, [facility] [place] [address] [id number] [place] [id number] December, [facility] [place] [address] [id number] [place] [id number] December, [facility] [place] [address] [id number] [place] [id number] December, [facility] [place] [address] [id number] [place] [id number] December, [facility] [place] [address] [id number] [place] [id number] December, [facility] [place] [address] [id number] [place] [id number] December, [facility] [place] [address] [id number] [place] [id number] December, [facility] [place] [address] [id number] [place] [id number] December, [facility] [place] [address] [id number] [place] [id number] December, [facility] [place] [address] [id number] [place] [id number] December, [facility] [place] [address] [id number] [place] [id number] December, [facility] [place] [address] [id number] [place] [id number] December, [facility] [place] [address] [id number] [place] [id number] December, [facility] [place] [address] [id number] [facility] [id number] December, [facility] [place] [address] [id number] [facility]IONAL [facility] [id number] Nov, [facility] [place] [address] [id number] [facility]IONAL [facility] [id number] Nov, [facility] [place] [address] [facility]07757S[facility] [id number] Nov, [facility] [place] [address] [facility]07757[facility] [id number] Nov, [facility] [id number] [place] [address] Nov, [facility] [id number] [place] [address] Nov, [facility] [address] [address] Sep, [facility] [address] [address] Sep, [facility] [id number] [place] [address] Jul, [facility] [id number] [place] [address] Jul, [facility] [address] [address] Jul, [facility] [id number] [place] [address] Jul, [facility] [id number] [place] [address] Jul, [facility] [address] [address] Jul, [facility] [address] [facility] [id number] [place] [address] Jun, [facility] [address] [id number] [place] [address] Jun, [facility] [address] [id number] [place] [address] Jun, [facility] [address] [id number] [place] [address] Jun, [facility] [address] [facility] [address] [id number] [place] [address] May, [facility] [address] [id number] [place] [address] May, [facility] [address] [id number] [place] [address] Feb, [facility] [address] [id number] [place] [address] Feb, [facility] [address] [id number] [place] [address] Feb, [facility] [address] [id number] [place] [address] Feb, [facility] [address] [id number] [place] [address] Jan, [facility] [address] [id number] [place] [address] Jan, [facility] [address] [id number] [place] [address] Jan, [facility] [address] [id number] [place] [address] Jan, [facility] [address] [id number] [place] [address] December, [facility] [address] [id number] [place] [address] December, [facility] [address] [id number] [place] [address] December, [facility] [address] [id number] [place] [address] December, [facility] [address] [id number] [place] [address] December, [facility] [address] [id number] [place] [address] December, [facility] [address] [id number] [place] [address] December, [facility] [address] [id number] [place] [address] December, [facility] [address] [id number] [place] [address] December, [facility] [address] [id number] [place] [address] December, [facility] [address] [id number] [place] [address] December, [facility] [address] [id number] [place] [address] December, [facility] [address] [id number] [place] [address] December, [facility] [address] [id number] [place] [address] December, [facility] [address] [id number] [place] [address] December, [facility] [address] [id number] [place] [address] December, [facility] [address] [id number] [place] [address] December, [facility] [address] [id number] [place] [address] Nov, [facility] [address] [id number] [place] [address] Nov, [facility] [address] [id number] [place] [address] Nov, [facility] [address] [id number] [place] [address] Nov, [facility] [address] [id number] [place] [address] Nov, [facility] [address] [id number] [place] [address] Nov, [facility] [address] [id number] [place] [address] Nov, [facility] [address] [id number] [place] [address] Nov, [facility] [address] [id number] [place] [address] Nov, [facility] [address] [id number] [place] [address] Nov, [facility] [address] [id number] [place] [address] Nov, [facility] [address] [id number] [place] [address] Nov, [facility] [address] [id number] [place] [address] Nov, [facility] [address] [id number] [place] [address] Nov, [facility] [address] [id number] [place] [address] Nov, [facility] [address] [id number] [place] [address] Nov, [facility] [address] [id number] [place] [address] Oct, [facility] [address] [id number] [place] [address] Oct, [facility] [address] [id number] [place] [address] Oct, [facility] [address] [id number] [place] [address] Oct, [facility] [address] [id number] [place] [address] Oct, [facility] [address] [id number] [place] [address] Oct, [facility] [address] [id number] [place] [address] Oct, [facility] [address] [id number] [place] [address] Oct, [facility] [address] [id number] [place] [address] Sep, [facility] [address] [id number] [place] [address] Sep, [facility] [address] [id number] [place] [address] Sep, [facility] [address] [id number] [place] [address] Sep, [facility] [address] [id number] [place] [address] Sep, [facility] [address] [id number] [place] [address] Sep, [facility] [address] [id number] [place] [address] Sep, [facility] [address] [id number] [place] [address] Sep, [facility] [address] [id number] [place] [address] Sep, [facility] [address] [id number] [place] [address] Sep, [facility] [address] [id number] [place] [address] Aug, [facility] [address] [id number] [place] [address] Aug, [facility] [address] [id number] [place] [address] Jul, [facility] [address] [id number] [place] [address] Jul, [facility] [address] [id number] [place] [address] Jul, [facility] [address] [id number] [place] [address] Jul, [facility] [address] [id number] [place] [address] Jul, [facility] [address] [id number] [place] [address] Jul, [facility] [id number] [place] [address] Jun, [facility] [address] [id number] [place] [address] Jun, [facility] [address] [id number] [place] [address] Jun, [facility] [address] [id number] [place] [address] May, [facility] [address] [id number] [place] [address] December, [facility] [address] [id number] [place] [address] December, [facility] [address] [id number] [place] [address] Jan, [facility] [id number] [place] [address] Jan, [facility] [address] [id number] [place] [address] Jan, [facility] [address] [id number] [place] [address] Jan, [facility] [address] [id number] [place] [address] December, [facility] [address] [id number] [place] [id number] December, [facility] [address] [id number] [place] [address] December, [facility] [id number] [place] [address] December, [facility] [address] [id number] [place] [address] December, [facility] [id number] [place] [address] Oct, [facility] [address] [id number] [place] [address] Jul, [facility] [id number] [place] [address] Jul, [facility] [address] [id number] [place] [address] Jun, IMMUNIZATIONS No Known Immunizations SOCIAL HISTORY [...]
--- OUTSIDE RECORDS SUMMARY | 2019-11-24 00:49 | XMS REPORT ---
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 Name Role Phone NELLY Guthrie Unavailable PROBLEMS Type Condition ICD9-CM Code TFM74-PX Code Onset Dates Condition S tatus SNOMED Code Problem Elevated blood pressure reading without diagnosi s of hypertension 796.2 Active 994397364 Problem Irregular menstrual cycle N92.6 Acti ve 53389275 Problem Lower abdominal pain R10.30 Active 50618812 Problem Chronic gingivitis, plaque induced K05.10 Active 45634369 Problem Positive serology for syphilis A53.0 Active 365914391 Problem Constipation, unspecified constipation type K59.00 Active 18074084 Problem Fatigue, unspecified type R53.83 Acti ve 20678109 Problem Anxiety F41.9 Active 49841770 Problem Tobacco abuse Z72.0 Active [id number] ALLERGIES No Information ENCOUNTERS Encounter Location Date Diagnosis [facility] [address] [facility][NOTE 3] [id number] [address] [address] Jul, Pharyngitis J02.9 [facility] [id number] [place] [address] May, Positive serology for syphilis A53.0 [facility] [id number] [place] [address] May, [facility] [address] [address] Apr, [facility] [address] [address] Apr, Concern about STD in female without diag nosis Z71.1 ; Needlestick injury due to hypodermic needle W46.0XXA ; Candidal vaginitis B37.3 and Trichomonas vaginitis A59.01 [facility] [address] [facility][NOTE 3] [id number] [address] [place] [address] December, UTI symptoms R39.9 and Acute cystitis with hematuria N30.01 [facility] [address] [id number] Feb, Acute cystitis without hematuria N30.[address] [id number] Oct, [facility] [address] [facility] [place] [address] Oct, Dental examination Z01.20 [facility] [address] [address] Oct, Dental examination Z01.20 and Chronic gi ngivitis, plaque induced K05.10 [facility] [id number] [place] [address] Oct, Dental examination Z01.[address] [id number] Jun, [address] [id number] May, [address] [id number] May, [address] [id number] Apr, [address] [id number] Apr, [address] [id number] Feb, Encounter for test, result unknown Z32.[address] [id number] Feb, [address] [id number] Feb, [address] [id number] Feb, Encounter for test, result unknown Z32.[address] [id number] [place] [address] Jan, [facility] [place] [address] [id number] [place] [address] Jan, [facility] [place] [address] [id number] [place] [address] Jan, [facility] [place] [address] [id number] [place] 25[address]047 December, [facility] [place] [address] [id number] [place] 775[address]785 December, [facility] [place] [address] [id number] [place] 0295[address]243 Nov, [facility] [place] [address] [id number] [place] [address] Nov, [facility] [place] [address] [id number] [place] 43026[address] Nov, [facility] [place] [address] [id number] [place] 78[address]28515 Oct, [facility] [place] [address] [id number] [place] 78[address] Oct, [facility] [place] [address] [id number] [place] 7712549[address] Oct, [facility] [place] [address] [id number] [place] [address]3514 Oct, [facility] [place] [address] [id number] [id number] Sep, [facility] [place] [address] [id number] [place] [id number] Sep, [facility] [place] [address] [id number] [place] [id number] Sep, [facility] [place] [address] [id number] [place] 7212[address]31 Sep, [facility] [place] [address] [id number] [place] [id number] Sep, [facility] [place] [address] [id number] [place] 867854312 Aug, [facility] [place] [address] [id number] [place] 879638453 Jul, [facility] [place] [address] [id number] [place] [address], [place] [id number] Jul, [facility] [place] [address], [place] [address] Jun, [facility] [place] [address], [place] 727144477 Jun, [facility] [place] [address], [place] [address] Jun, [facility] [place] [address], [place] [address]75[address]112 Jun, [facility] [place] [address], [place] 380310477 Jun, [facility] [place] [address], [place] 556843667 Jun, [facility] [place] [address], [place] [address]887[address] May, [facility] [place] [address] [id number] May, [facility] [place] [address], [place] [id number] May, [facility] [address] [id number] [place] [address] Apr, Bronchitis J40 [facility] [place] [address] [id number] Mar, [facility] [place] [address] [id number] Feb, [facility] [place] [address] [id number] Feb, [facility] [place] [address] [id number] Feb, Sore throat J02.9 and Ear pain, right H92.01 [facility] [place] [address] [id number] Jan, [facility] [place] [address] [id number] Jan, Viral syndrome B34.9 ; Other seasonal allergic rhinitis J30.2 and Post-nasal drip R09.82 [facility] [place] [address] [id number] Jan, [address] [id number] Nov, [address] [id number] Oct, test positive Z32.01 [place] [address] [address] Oct, [place] [address] [address] Oct, [place] [address] [address] Sep, Kidney stones N20.0 [place] [address] [address] 18 Sep, 2015 [place] [address] [address] Sep, Pelvic pain R10.2 ; Left lower quadrant pain R10.32 ; Vaginal discharge N89.8 ; Routine screening for STI (sexually transmitted infection) Z11.3 ; Unprotected sexual intercourse Z72.51 ; Kidney stone N20.0 ; History of dyspareunia in female Z87.42 and Screening for malignant neoplasm of cervix Z12.4 [place] [address] [address] 12 Jun, 2015 Constipation, unspecified constipation t ype K59.00 ; Lower abdominal pain R10.30 ; Irregular menstrual cycle N92.6 ; Anxiety F41.9 ; Fatigue, unspecified type R53.83 and Tobacco abuse Z72.[address] [id number] Jun, [address] [id number] Jun, Nausea R11.[address] [id number] May, Alopecia L65.[address] [id number] May, [facility] [place] [address] 51816757[facility] [address]240 Apr, [facility] [place] [address] 51816757[facility] 955[address]113 Mar, [facility] [place] [id number] [place] [address], [place] [id number] Mar, [facility] [place] [address] 51816757[facility] [address]37[address]161 Mar, [facility] [address] [id number] [place] [address] Mar, test negative V72.41 [facility] [place] [address] 51816757[facility] [id number] Mar, [facility] [place] [id number] [place] [address], [place] [id number] Mar, [facility] [place] [address] 51816757[facility] [id number] Feb, [facility] [place] [id number] [place] [address], [place] [id number] Feb, [facility] [place] [id number] [place] [address], [place] [id number] Feb, [facility] [place] [id number] [place] [address], [place] [id number] Feb, [facility] [place] [id number] [place] [address], [place] [id number] Feb, [facility] [place] [address] 51816757[facility] [id number] Feb, [facility] [place] [id number] [place] [address], [place] [id number] Feb, [facility] [place] [id number] [place] [address], [place] [id number] Feb, [facility] [place] [id number] [place] [address], [place] [id number] Feb, [facility] [place] [id number] [place] [address], [place] [id number] Feb, [facility] [place] [address] 51816757[facility] [id number] Feb, [facility] [place] [id number] [place] [address], [place] [id number] Feb, [facility] [place] [address] [id number] [place] [id number] Jan, [facility] [place] [address] [id number] [place] [id number] Jan, [facility] [place] [address] [id number] [place] [id number] Jan, [facility] [address] [facility] [address] [id number] [facility] [place] 9[place] Jan, Dental examination V72.2 [facility] [place] [address] [id number] [place] [id number] Jan, [facility] [place] [address] [id number] [place] [id number] Jan, [facility] [place] [address] [id number] [place] 203644716 Jan, [facility] [place] [address] [id number] [place] [address], [place] [id number] Jan, [facility] [place] [address] [id number] [place] [address], [place] [id number] 16 Jan, 2015 [facility] [place] [address] [place] [id number] [id number] 15 Jan, 2015 [facility] [place] [address] [id number] [place] [address], [place] [id number] 14 Jan, 2015 [facility] [place] [address] [place] 51665CK30288F[facility]ARTLAND [place] [id number] Jan, [facility] [place] [address] [id number] [place] [address], [place] [id number] Jan, [facility] [place] [address] [id number] [place] [address], [place] [id number] Jan, [facility] [place] [address] [id number] [place] [address], [place] [id number] Jan, [facility] [place] [address] [id number] [place] [id number] Jan, [facility] [place] [address] [id number] [place] [address], [place] [id number] Jan, [facility] [place] [address] [id number] [place] [address], [place] [id number] Jan, [facility] [place] [address] [place] 63340[address]10 Jan, [facility] [place] [address] [id number] [place] [id number] Jan, [facility] [place] [address] [id number] [place] 115913035 Jan, [facility] [place] [address] [id number] [place] [id number] Jan, 2014 [facility] [place] [address] [id number] [place] [id number] Jan, 2014 [facility] [place] [address] [id number] [place] [id number] Jan, 2014 [facility] [place] [address] [id number] [place] [id number] Jan, [facility] [place] [address] [id number] [place] [id number] Jan, [facility] [place] [address] [id number] [place] [id number] Jan, [facility] [place] [address] [id number] [place] [id number] Jan, [facility] [place] [address] [id number] [place] [id number] December, [facility] [place] [address] [id number] [place] [id number] December, [facility] [place] [address] [id number] [place] [id number] December, [facility] [place] [address] [id number] [place] [id number] December, [facility] [place] [address] [id number] [place] [id number] December, [facility] [place] [address] [id number] [place] 068778112 December, [facility] [place] [address] [id number] [place] [id number] December, [facility] [place] [address] [id number] [place] [id number] December, [facility] [place] [address] [id number] [place] [id number] December, [facility] [place] [address] [id number] [place] [id number] December, [facility] [place] [address] [id number] [place] [id number] December, [facility] [place] [address] [id number] [id number] December, [facility] [place] [address] [id number] [place], [place] [id number] December, [facility] [place] [address] [id number] [facility] [id number] December, [facility] [place] [address] [id number] [facility] [id number] Nov, [facility] [place] [address] [facility]07757[facility] [id number] Nov, [facility] [place] [address] [facility]07757[facility] 560268652 Nov, [facility] [place] [address] [facility]07757[facility] [id number] Nov, [facility] [id number] [place] [address] Nov, [facility] [id number] [place] [address] Nov, [facility] [address] [address] Sep, [facility] [id number] [place] [address] Sep, [facility] [id number] [place] [address] Jul, [facility] [id number] [place] [address] Jul, [facility] [id number] [place] [address] Jul, [facility] [id number] [place] [address] Jul, [facility] [id number] [place] [address] Jul, [facility] [id number] [place] [address] Jul, [facility] [address] [facility][NOTE 3] [id number] [facility] [place] [address] Jun, [facility] [address] [facility][NOTE 3] [id number] [facility] [place] [address] Jun, [facility] [address] [id number] [place] [address] Jun, [facility] [address] [id number] [place] [address] Jun, [facility] [address] [facility][NOTE 3] [id number] [facility] [place] [address] May, [facility] [address] [id number] [place] [address] May, [facility] [address] [id number] [place] [address] Feb, [facility] [address] [id number] [place] [address] Feb, [facility] [address] [id number] [place] [address] Feb, [facility] [address] [id number] [place] [address] Feb, [facility] [address] [id number] [place] [address] Jan, [facility] [address] [id number] [place] [address] Jan, [facility] [address] [facility][NOTE 3] [id number] [place] [address] Jan, [facility] [address] [id number] [place] [address] Jan, [facility] [address] [id number] [place] [address] December, [facility] [address] [id number] [place] [address] December, [facility] [address] [facility][NOTE 3] [id number] [place] [address] December, [facility] [address] [id number] [place] [address] December, [facility] [address] [facility][NOTE 3] [id number] [place] [address] December, [facility] [address] [id number] [place] [address] December, [facility] [address] [id number] [place] [address] December, [facility] [address] [facility][NOTE 3] [id number] [place] [address] December, [facility] [address] [id number] [place] [address] December, [facility] [address] [id number] [place] [address] December, [facility] [address] [id number] [place] [address] December, [facility] [address] [id number] [place] [address] December, [facility] [address] [id number] [place] [address] December, [facility] [address] [id number] [place] [address] December, [facility] [address] [id number] [place] [address] December, [facility] [address] [id number] [place] [address] December, [facility] [address] [id number] [place] [address] December, [facility] [address] [id number] [place] [address] Nov, [facility] [address] [id number] [place] [address] Nov, [facility] [address] [facility][NOTE 3] [id number] [place] [address] Nov, [facility] [address] [id number] [place] [address] Nov, [facility] [address] [id number] [place] [address] Nov, [facility] [address] [id number] [place] [address] Nov, [facility] [address] [facility][NOTE 3] [id number] [place] [address] Nov, [facility] [address] [id number] [place] [address] Nov, [facility] [address] [id number] [place] [address] Nov, [facility] [address] [id number] [place] [address] Nov, [facility] [address] [id number] [place] [address] Nov, [facility] [address] [id number] [place] [address] Nov, [facility] [address] [id number] [place] [address] Nov, [facility] [address] [id number] [place] [address] Nov, [facility] [address] [id number] [place] [address] Nov, [facility] [address] [id number] [place] [address] Nov, [facility] [address] [id number] [place] [address] Oct, [facility] [address] [id number] [place] [address] Oct, [facility] [address] [id number] [place] [address] Oct, [facility] [address] [facility][NOTE 3] [id number] [place] [address] Oct, [facility] [address] [facility][NOTE 3] [id number] [place] [address] Oct, [facility] [address] [id number] [place] [address] Oct, [facility] [address] [id number] [place] [address] Oct, [facility] [address] [facility][NOTE 3] [id number] [place] [address] Oct, [facility] [address] [id number] [place] [address] Sep, [facility] [address] [id number] [place] [address] Sep, [facility] [address] [id number] [place] [address] Sep, [facility] [address] [id number] [place] [address] Sep, [facility] [address] [id number] [place] [address] Sep, [facility] [address] [id number] [place] [address] Sep, [facility] [address] [id number] [place] [address] Sep, [facility] [address] [id number] [place] [address] Sep, [facility] [address] [id number] [place] [address] Sep, [facility] [address] [id number] [place] [address] Sep, [facility] [address] [id number] [place] [address] Aug, [facility] [address] [id number] [place] [address] Aug, [facility] [address] [id number] [place] [address] Jul, [facility] [address] [id number] [place] [address] Jul, [facility] [address] [id number] [place] [address] Jul, [facility] [address] [id number] [place] [address] Jul, [facility] [address] [id number] [place] [address] Jul, [facility] [address] [id number] [place] [address] Jul, [facility] [id number] [place] [address] Jun, [facility] [address] [id number] [place] [address] Jun, [facility] [address] [id number] [place] [address] Jun, [facility] [address] [id number] [place] [address] May, [facility] [address] [id number] [place] [address] December, [facility] [address] [id number] [place] [address] December, [facility] [address] [id number] [place] [address] Jan, [facility] [address] [id number] [place] [address] Jan, [facility] [address] [id number] [place] [address] Jan, [facility] [address] [id number] [place] [address] Jan, [facility] [address] [id number] [place] [address] December, [facility] [address] [facility] [id number] [place] [id number] December, [facility] [address] [id number] [place] [address] December, [facility] [id number] [place] [address] December, [facility] [address] [id number] [place] [address] December, [facility] [id number] [place] [address] Oct, [facility] [address] [id number] [place] [address] Jul, [facility] [id number] [place] [address] Jul, [facility] [address] [id number] [place] [address] Jun, IMMUNIZATIONS No Known Immunizations SOCIAL HISTORY Never Assessed REASON FOR VISIT PLAN OF CARE VITAL SIGNS Height 63 in 2014-03-15 Weight 167.1 lbs 2014-03-15 Temperature 97.6 degrees Fahrenheit 2014-03-15 Heart Rate 90 bpm 2014-03-15 Respiratory Rate 20 2014-03-15 Blood pressure systolic 134 mmHg 2014-03-15 Blood pressure diastolic 80 mmHg 2014-03-15 MEDICATIONS No Known Medications RESULTS No Results [...]
--- OUTSIDE RECORDS SUMMARY | 2019-11-24 00:49 | XMS REPORT ---
Author Author Vilma REBOLLAR Organization 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 Name Role Phone ANGELIA REBOLLAR Unavailable PROBLEMS Type Condition ICD9-CM Code DRQ44-PR Code Onset Dates Condition S tatus SNOMED Code Problem Elevated blood pressure reading without diagnosi s of hypertension 796.2 Active 477191353 Problem Irregular menstrual cycle N92.6 Acti ve 13961917 Problem Tobacco abuse Z72.0 Active 614152 05 Problem Chronic gingivitis, plaque induced K05.10 Active 06235251 Problem Lower abdominal pain R10.30 Active 35746541 Problem Constipation, unspecified constipation type K59.00 Active 64088286 Problem Fatigue, unspecified type R53.83 Acti ve 30253356 Problem Anxiety F41.9 Active 92489091 ALLERGIES No Information ENCOUNTERS Encounter Location Date Diagnosis [facility] [address] [id number] [address] [place] [address] Apr, [facility] [address] [facility] [place] [facility] [id number] [address] [place] [address] Apr, Concern about STD in female without diagnosis Z71.1 ; Needlestick injury due to hypodermic needle W46.0XXA ; Candidal vaginitis B37.3 and Trichomonas vaginitis A59.01 [facility] [address] [facility] [place] [facility] [id number] [address] [place] [address] December, UTI symptoms R39.9 and Acute cystitis with hematuria N30.01 [facility] [address] [id number] [place] [id number] Feb, Acute cystitis without hematuria N30.00 [facility] [address] [id number] [place] [phone] Oct, [facility] [address] [id number] [address] [place] [id number] Oct, Dental examination Z01.20 [facility] [address] [facility] [place] [id number] [address] [place] [address] Oct, Dental examination Z01.20 an d Chronic gingivitis, plaque induced K05.10 [facility] [address] [id number] [address] [place] [address] Oct, Dental examination Z01.20 [facility] [place] [address] [id number] [place] [id number] Jun, [facility] [place] [address] [id number] [place] [id number] May, [facility] [place] [address] [id number] [place] [id number] May, [facility] [place] [address] [id number] [place] [id number] Apr, [facility] [place] [address] [id number] [place] [id number] Apr, [facility] [place] [address] [id number] [place] [id number] Feb, Encounter for test, result unk nown Z32.00 [facility] [place] [address] [id number] [place] [id number] Feb, [facility] [place] [address] [id number] [place] [id number] Feb, [facility] [place] [address] [id number] [place] [id number] Feb, Encounter for test, result unk nown Z32.00 [facility] [place] [address] [id number] [place] [id number] Jan, [facility] [place] [address] [id number] [place] [id number] Jan, [facility] [place] [address] [id number] [place] [id number] Jan, [facility] [place] [address] [id number] [place] [id number] December, [facility] [place] [address] [id number] [place] [id number] December, [facility] [place] [address] [id number] [place] [id number] Nov, [facility] [place] [address] [id number] [place] [id number] Nov, [facility] [place] [address] [id number] [place] [id number] Nov, [facility] [place] [address] [id number] [place] [id number] Oct, [facility] [place] [address] [id number] [place] [id number] Oct, [facility] [place] [address] [id number] [place] [id number] Oct, [facility] [place] [address] [id number] [place] [id number] Oct, [facility] [place] [address] [id number] [place] [id number] Sep, [facility] [place] [address] [id number] [place] [id number] Sep, [facility] [place] [address] [id number] [place] [id number] Sep, [facility] [place] [address] [id number] [place] [id number] Sep, [facility] [place] [address] [id number] [place] [id number] Sep, [facility] [place] [address] [id number] [place] [id number] Aug, [facility] [place] [address] [id number] [place] [id number] Jul, [facility] [place] [address] [id number] [place] [id number] Jul, [facility] [place] [address] [id number] [place] [id number] Jun, [facility] [place] [address] [id number] [place] [id number] Jun, [facility] [place] [address] [id number] [place] [id number] Jun, [facility] [place] [address] [id number] [place] [id number] Jun, [facility] [place] [address] [id number] [place] [id number] Jun, [facility] [place] [address] [id number] [place] [id number] Jun, [facility] [place] [address] [id number] [place] [id number] May, [facility] [place] [address] [id number] [place] [id number] May, [facility] [place] [address] [id number] [place] [id number] May, [facility] [address] [facility] [place] [id number] [facility] [place] [address] Apr, Bronchitis J40 [facility] [place] [address] [id number] [place] [id number] Mar, [facility] [place] [address] [id number] [place] [id number] Feb, [facility] [place] [address] [id number] [place] [id number] Feb, [facility] [place] [address] [id number] [place] [id number] Feb, Sore throat J02.9 and Ear pain, right H9 2.01 [facility] [place] [address] [id number] [place] [id number] Jan, [facility] [place] [address] [id number] [place] [id number] Jan, Viral syndrome B34.9 ; Other seasonal al lergic rhinitis J30.2 and Post-nasal drip R09.82 [facility] [place] [address] [id number] [place] [id number] Jan, [facility] [place] [address] [id number] [place] [id number] Nov, [facility] [address] [facility] [id number] [place] [id number] Oct, test positive Z32.01 [facility] [address] [facility] [place] [facility] [id number] [address] [place] [address] Oct, [facility] [address] [id number] [address] [place] [address] Oct, [facility] [address] [facility] [place] [id number] [address] [place] [address] Sep, Kidney stones N20.0 [facility] [address] [address] 18 Sep, 2015 [facility] [address] [id number] [address] [place] [address] 11 Sep, 2015 Pelvic pain R10.2 ; Left low er quadrant pain R10.32 ; Vaginal discharge N89.8 ; Routine screening for STI (sexually transmitted infection) Z11.3 ; Unprotected sexual intercourse Z72.51 ; Kidney stone N20.0 ; History of dyspareunia in female Z87.42 and Screening for malignant neoplasm of cervix Z12.4 [facility] [address] [id number] [address] [place] [address] 12 Jun, 2015 Constipation, unspecified co nstipation type K59.00 ; Lower abdominal pain R10.30 ; Irregular menstrual cycle N92.6 ; Anxiety F41.9 ; Fatigue, unspecified type R53.83 and Tobacco abuse Z72.0 [facility] [address] [facility] [id number] [place] [id number] Jun, [facility] [address] [facility] [id number] [place] [id number] Jun, Nausea R11.0 [facility] [address] [id number] [place] [id number] May, Alopecia L65.9 [facility] [address] [id number] [place] [id number] May, [facility] [place] [address] [id number] [place] [id number] Apr, [facility] [place] [address] [id number] [place] [id number] Mar, [facility] [place] [address] [id number] [place] [id number] Mar, [facility] [place] [address] [id number] [place] [id number] Mar, [facility] [address] [id number] [address] Mar, test negative V72. 41 [facility] [place] [address] [id number] [place] [id number] Mar, [facility] [place] [address] [id number] [place] [id number] Mar, [facility] [place] [address] [id number] [place] [id number] Feb, [facility] [place] [address] [id number] [place] [id number] Feb, [facility] [place] [address] [id number] [place] [id number] Feb, [facility] [place] [address] [id number] [place] [id number] Feb, [facility] [place] [address] [id number] [place] [id number] Feb, [facility] [place] [address] [id number] [place] [id number] Feb, [facility] [place] [address] [id number] [place] [id number] Feb, [facility] [place] [address] [id number] [place] [id number] Feb, [facility] [place] [address] [id number] [place] [id number] Feb, [facility] [place] [address] [id number] [place] [id number] Feb, [facility] [place] [address] [id number] [place] [id number] Feb, [facility] [place] [address] [id number] [place] [id number] Feb, [facility] [place] [address] [id number] [place] [id number] Jan, [facility] [place] [address] [id number] [place] [id number] Jan, [facility] [place] [address] [id number] [place] [id number] Jan, [facility] [address] [id number] [place] [phone] Jan, Dental examination V72.2 [facility] [place] [address] [id number] [place] [id number] Jan, [facility] [place] [address] [id number] [place] [id number] Jan, [facility] [place] [address] [id number] [place] [id number] Jan, [facility] [place] [address] [id number] [place] [id number] Jan, [facility] [place] [address] [id number] [place] [id number] Jan, [facility] [place] [address] [id number] [place] [id number] Jan, [facility] [place] [address] [id number] [place] [id number] Jan, [facility] [place] [address] [id number] [place] [id number] Jan, [facility] [place] [address] [id number] [place] [id number] Jan, [facility] [place] [address] [id number] [place] [id number] Jan, [facility] [place] [address] [id number] [place] [id number] Jan, [facility] [place] [address] [id number] [place] [id number] Jan, [facility] [place] [address] [id number] [place] [id number] Jan, [facility] [place] [address] [id number] [place] [id number] Jan, [facility] [place] [address] [id number] [place] [id number] Jan, [facility] [place] [address] [id number] [place] [id number] Jan, [facility] [place] [address] [id number] [place] [id number] Jan, [facility] [place] [address] [id number] [place] [id number] Jan, [facility] [place] [address] [id number] [place] [id number] Jan, [facility] [place] [address] [id number] [place] [id number] Jan, [facility] [place] [address] [id number] [place] [id number] Jan, [facility] [place] [address] [id number] [place] [id number] Jan, [facility] [place] [address] [id number] [place] [id number] Jan, [facility] [place] [address] [id number] [place] [id number] Jan, [facility] [place] [address] [id number] [place] [id number] December, [facility] [place] [address] [id number] [place] [id number] December, [facility] [place] [address] [id number] [place] [id number] December, [facility] [place] [address] [id number] [place] [id number] December, [facility] [place] [address] [id number] [place] [id number] December, [facility] [place] [address] [id number] [place] [id number] December, [facility] [place] [address] [id number] [place] [id number] December, [facility] [place] [address] [id number] [place] [id number] December, [facility] [place] [address] [id number] [place] [id number] December, [facility] [place] [address] [id number] [place] [id number] December, [facility] [place] [address] [id number] [place] [id number] December, [facility] [place] [address] [id number] [place] [id number] December, [facility] [place] [address] [id number] [place] [id number] December, [facility] [place] [address] [id number] [place] [id number] December, [facility] [place] [address] [id number] [place] [id number] Nov, [facility] [place] [address] [id number] [place] [id number] Nov, [facility] [place] [address] [id number] [place] [id number] Nov, [facility] [place] [address] [id number] [place] [id number] Nov, [facility] [place] [facility] [address] [facility] [place] [id number] [address] [place] [address] Nov, [facility] [address] [facility] [place] [id number] [address] [place] [address] Nov, [facility] [address] [place] [address] Sep, [facility] [address] [id number] [address] [place] [address] Sep, [facility] [place] [facility] [address] [place] [address] Jul, [facility] [address] [id number] [address] [place] [address], [place] [address] Jul, [facility] [address] [id number] [address] [place] [address], [place] [address] Jul, [facility] [address] [id number] [address] [place] [address], [place] [address] Jul, [facility] [address] [id number] [address] [place] [address], [place] [address] Jul, [facility] [address] [id number] [address] [place] [address], [place] [address] Jul, [facility] [address] [id number] [address] [place] [address], [place] [address] Jun, [facility] [address] [id number] [address] [place] [address], [place] [address] Jun, [facility] [address] [id number] [address] [place] [address], [place] [address] Jun, [facility] [address] [id number] [address] [place] [address], [place] [address] Jun, [facility] [address] [id number] [address] [place] [address], [place] [address] May, [facility] [address] [id number] [address] [place] [address], [place] [address] May, [facility] [address] [id number] [address] [place] [address], [place] [address] Feb, [facility] [address] [id number] [address] [place] [address], [place] [address] Feb, [facility] [address] [id number] [address] [place] [address], [place] [address] Feb, [facility] [address] [id number] [address] [place] [address], [place] [address] Feb, [facility] [address] [id number] [facility] [address] Jan, [facility] [address] [id number] [facility] [place] [address] Jan, [facility] [address] [id number] [facility] [place] [address] Jan, [facility] [address] [id number] [address] [place] [address], [place] [address] Jan, [facility] [address] [id number] [facility] [place] [address] December, [facility] [address] [id number] [address] [place] [address], [place] [address] December, [facility] [address] [id number] [address] [place] [address], [place] [address] December, [facility] [address] [id number] [address] [place] [address], [place] [address] December, [facility] [address] [id number] [address] [place] [address], [place] [address] December, [facility] [address] [id number] [address] [place] [address], [place] [address] December, [facility] [address] [id number] [address] [place] [address], [place] [address] December, [facility] [address] [id number] [address] [place] [address], [place] [address] December, [facility] [address] [id number] [address] [place] [address], [place] [address] December, [facility] [address] [id number] [address] [place] [address], [place] [address] December, [facility] [address] [id number] [address] [place] [address], [place] [address] December, [facility] [address] [id number] [address] [place] [address], [place] [address] December, [facility] [address] [id number] [facility] [place] [address] December, [facility] [address] [id number] [address] [place] [address], [place] [address] December, [facility] [address] [id number] [address] [place] [address], [place] [address] December, [facility] [address] [id number] [address] [place] [address], [place] [address] December, [facility] [address] [id number] [address] [place] [address], [place] [address] December, [facility] [address] [id number] [address] [place] [address], [place] [address] Nov, [facility] [address] [id number] [address] [place] [address], [place] [address] Nov, [facility] [address] [id number] [address] [place] [address], [place] [address] Nov, [facility] [address] [id number] [address] [place] [address], [place] [address] Nov, [facility] [address] [id number] [address] [place] [address], [place] [address] Nov, [facility] [address] [id number] [address] [place] [address], [place] [address] Nov, [facility] [address] [id number] [address] [place] [address], [place] [address] Nov, [facility] [address] [id number] [address] [place] [address], [place] [address] Nov, [facility] [address] [id number] [address] [place] [address], [place] [address] Nov, [facility] [address] [id number] [address] [place] [address], [place] [address] Nov, [facility] [address] [id number] [address] [place] [address], [place] [address] Nov, [facility] [address] [id number] [facility] [address] Nov, [facility] [address] [id number] [address] [place] [address], [place] [address] Nov, [facility] [address] [id number] [address] [place] [address], [place] [address] Nov, [facility] [address] [id number] [address] [place] [address], [place] [address] Nov, [facility] [address] [id number] [address] [place] [address], [place] [address] Nov, [facility] [address] [id number] [address] [place] [address], [place] [address] Oct, [facility] [address] [id number] [address] [place] [address], [place] [address] Oct, [facility] [address] [id number] [address] [place] [address], [place] [address] Oct, [facility] [address] [id number] [address] [place] [address], [place] [address] Oct, [facility] [address] [id number] [address] [place] [address], [place] [address] Oct, [facility] [address] [id number] [address] [place] [address], [place] [address] Oct, [facility] [address] [id number] [address] [place] [address], [place] [address] Oct, [facility] [address] [id number] [address] [place] [address], [place] [address] Oct, [facility] [address] [id number] [address] [place] [address], [place] [address] Sep, [facility] [address] [id number] [address] [place] [address], [place] [address] Sep, [facility] [address] [id number] [address] [place] [address], [place] [address] Sep, [facility] [address] [id number] [address] [place] [address], [place] [address] Sep, [facility] [address] [id number] [address] [place] [address], [place] [address] Sep, [facility] [address] [id number] [address] [place] [address], [place] [address] Sep, [facility] [address] [id number] [address] [place] [address], [place] [address] Sep, [facility] [address] [id number] [address] [place] [address], [place] [address] Sep, [facility] [address] [id number] [address] [place] [address], [place] [address] Sep, [facility] [address] [id number] [address] [place] [address], [place] [address] Sep, [facility] [address] [id number] [address] [place] [address], [place] [address] Aug, [facility] [address] [id number] [address] [place] [address], [place] [address] Aug, [facility] [address] [id number] [address] [place] [address], [place] [address] Jul, [facility] [address] [id number] [address] [place] [address], [place] [address] Jul, [facility] [address] [id number] [address] [place] [address], [place] [address] Jul, [facility] [address] [id number] [address] [place] [address], [place] [address] Jul, [facility] [address] [id number] [address] [place] [address], [place] [address] Jul, [facility] [address] [id number] [address] [place] [address], [place] [address] Jul, [facility] [address] [id number] [address] [place] [address], [place] [address] Jun, [facility] [address] [id number] [address] [place] [address], [place] [address] Jun, [facility] [address] [id number] [address] [place] [address], [place] [address] Jun, [facility] [address] [id number] [address] [place] [address], [place] [address] May, [facility] [address] [id number] [address] [place] [address], [place] [address] December, [facility] [address] [id number] [address] [place] [address], [place] [address] December, [facility] [address] [id number] [address] [place] [address], [place] [address] Jan, [facility] [address] [id number] [address] [place] [address], [place] [address] Jan, [facility] [address] [id number] [address] [place] [address], [place] [address] Jan, [facility] [address] [id number] [address] [place] [address], [place] [address] Jan, [facility] [address] [id number] [address] [place] [address], [place] [address] December, [facility] [address] [id number] [id number] December, [facility] [address] [id number] [address] [place] [address], [place] [id number] December, [facility] [address] [id number] [address] [place] [address], [place] [id number] December, [facility] [address] [id number] [address] [place] [address], [place] [id number] December, [facility] [address] [facility] [place]] [id number] [address] [place] [id number] Oct, [facility] [address] [facility] [place] [id number] [address] [place] [id number] Jul, [facility] [address] [facility] [place]] [id number] [address] [place] [id number] Jul, [facility] [address] [facility] [place] [id number] [address] [place] [phone] Jun, IMMUNIZATIONS No Known Immunizations SOCIAL HISTORY Never Assessed REASON FOR VISIT PLAN OF CARE VITAL SIGNS Height 63 in 2014-01-17 Weight 193.7 lbs 2014-01-17 Temperature 98.7 degrees Fahrenheit 2014-01-17 Heart Rate 116 bpm 2014-01-17 Respiratory Rate 20 2014-01-17 Blood pressure systolic 170 mmHg 2014-01-17 Blood pressure diastolic 80 mmHg 2014-01-17 MEDICATIONS Unknown Medications RESULTS No Results PROCEDURES Procedure Date Ordered Result Body Site URINE-NO MICRO January 17, 2014 INSTRUCTIONS MEDICATIONS ADMINISTERED No Known Medications [...]
--- OUTSIDE RECORDS SUMMARY | 2019-11-24 00:49 | XMS REPORT ---
Author Author Vilma Guthrie Organization [facility] Address [address] [place] [address] Care Team Providers Care Utility Person Name Role Phone NELLY Guthrie Unavailable PROBLEMS Type Condition ICD9-CM Code USO45-EW Code Onset Dates Condition S tatus SNOMED Code Problem Elevated blood pressure reading without diagnosi s of hypertension 796.2 Active 302663247 Problem Irregular menstrual cycle N92.6 Acti ve 10363942 Problem Tobacco abuse Z72.0 Active 534463 05 Problem Chronic gingivitis, plaque induced K05.10 Active 37254494 Problem Lower abdominal pain R10.30 Active 74927969 Problem Constipation, unspecified constipation type K59.00 Active 82175459 Problem Fatigue, unspecified type R53.83 Acti ve 14253501 Problem Anxiety F41.9 Active 56341934 ALLERGIES No Information ENCOUNTERS Encounter Location Date Diagnosis [facility] [address] [id number] [address] [place] [address] Apr, [facility] [address] [id number] [address] [place] [address] Apr, Concern about STD in female without diagnosis Z71.1 ; Needlestick injury due to hypodermic needle W46.0XXA ; Candidal vaginitis B37.3 and Trichomonas vaginitis A59.01 [facility] [address] [facility] [id number] [address] [place] [address] December, UTI symptoms R39.9 and Acute cystitis with hematuria N30.01 [facility] [address] [id number] [place] [id number] Feb, Acute cystitis without hematuria N30.00 [facility] [address] [id number] [place] [id number] Oct, [facility] [address] [id number] [address] [place] [id number] Oct, Dental examination Z01.20 [facility] [address] [id number] [place] [address] Oct, Dental examination Z01.20 an d Chronic gingivitis, plaque induced K05.10 [facility] [address] [id number] [address] [place] [address] Oct, Dental examination Z01.20 [facility] [place] [address] [id number] [place] [id number] Jun, [facility] [place] [address] [id number] [place] [id number] May, [facility] [place] [address] [id number] [place] [id number] May, [facility] [place] [address] [id number] [place] [id number] Apr, [facility] [place] [address] [id number] [place] [id number] Apr, [facility] [place] [address] [id number] [place] [id number] Feb, Encounter for test, result unk nown Z32.00 [facility] [place] [address] [id number] [place] [id number] Feb, [facility] [place] [address] [id number] [place] [id number] Feb, [facility] [place] [address] [id number] [place] [id number] Feb, Encounter for test, result unk nown Z32.00 [facility] [place] [address] [id number] [place] [id number] Jan, [facility] [place] [address] [id number] [place] [id number] Jan, [facility] [place] [address] [id number] [place] [id number] Jan, [facility] [place] [address] [id number] [place] [id number] December, [facility] [place] [address] [id number] [place] [id number] December, [facility] [place] [address] [id number] [place] [id number] Nov, [facility] [place] [address] [id number] [place] [id number] Nov, [facility] [place] [address] [id number] [place] [id number] Nov, [facility] [place] [address] [id number] [place] [id number] Oct, [facility] [place] [address] [id number] [place] [id number] Oct, [facility] [place] [address] [id number] [place] [id number] Oct, [facility] [place] [address] [id number] [place] [id number] Oct, [facility] [place] [address] [id number] [place] [id number] Sep, [facility] [place] [address] [id number] [place] [id number] Sep, [facility] [place] [address] [id number] [place] [id number] Sep, [facility] [place] [address] [id number] [place] [id number] Sep, [facility] [place] [address] [id number] [place] [id number] Sep, [facility] [place] [address] [id number] [place] [id number] Aug, [facility] [place] [address] [id number] [place] [id number] Jul, [facility] [place] [address] [id number] [place] [id number] Jul, [facility] [place] [address] [id number] [place] [id number] Jun, [facility] [place] [address] [id number] [place] [id number] Jun, [facility] [place] [address] [id number] [place] [id number] Jun, [facility] [place] [address] [id number] [place] [id number] Jun, [facility] [place] [address] [id number] [place] [id number] Jun, [facility] [place] [address] [id number] [place] [id number] Jun, [facility] [place] [address] [id number] [place] [id number] May, [facility] [place] [address] [id number] [place] [id number] May, [facility] [place] [address] [id number] [place] [id number] May, [facility] [address] [facility] [id number] [facility] [place] [address] Apr, Bronchitis J40 [facility] [place] [address] [id number] [place] [id number] Mar, [facility] [place] [address] [id number] [place] [id number] Feb, [facility] [place] [address] [id number] [place] [id number] Feb, [facility] [place] [address] [id number] [place] [id number] Feb, Sore throat J02.9 and Ear pain, right H9 2.01 [facility] [place] [address] [id number] [place] [id number] Jan, [facility] [place] [address] [id number] [place] [id number] Jan, Viral syndrome B34.9 ; Other seasonal al lergic rhinitis J30.2 and Post-nasal drip R09.82 [facility] [place] [address] [id number] [place] [id number] Jan, [facility] [address] [facility] [id number] [place] [id number] Nov, [facility] [address] [facility] [id number] [place] [id number] Oct, test positive Z32.01 [facility] [address] [id number] [address] [place] [address] Oct, [facility] [address] [address] Oct, [facility] [id number] [place] [address] Sep, Kidney stones N20.0 [facility] [id number] [place] [address] 18 Sep, 2015 [facility] [id number] [place] [address] 11 Sep, 2015 Pelvic pain R10.2 ; Left low er quadrant pain R10.32 ; Vaginal discharge N89.8 ; Routine screening for STI (sexually transmitted infection) Z11.3 ; Unprotected sexual intercourse Z72.51 ; Kidney stone N20.0 ; History of dyspareunia in female Z87.42 and Screening for malignant neoplasm of cervix Z12.4 [facility] [address] [id number] [address] [place] [address] 12 Jun, 2015 Constipation, unspecified co nstipation type K59.00 ; Lower abdominal pain R10.30 ; Irregular menstrual cycle N92.6 ; Anxiety F41.9 ; Fatigue, unspecified type R53.83 and Tobacco abuse Z72.0 [facility] [address] [id number] [place] [id number] Jun, [facility] [address] [facility] [id number] [place] [id number] Jun, Nausea R11.0 [facility] [address] [facility] [id number] [place] [id number] May, Alopecia L65.9 [facility] [address] [id number] [place] [id number] May, [facility] [place] [address] [id number] [place] [id number] Apr, [facility] [place] [address] [id number] [place] [id number] Mar, [facility] [place] [address] [id number] [place] [id number] Mar, [facility] [place] [address] [id number] [place] [id number] Mar, [facility] [address] [id number] [address] [address] Mar, test negative V72. 41 [facility] [place] [address] [id number] [place] [id number] Mar, [facility] [place] [address] [id number] [place] [id number] Mar, [facility] [place] [address] [id number] [place] [id number] Feb, [facility] [place] [address] [id number] [place] [id number] Feb, [facility] [place] [address] [id number] [place] [id number] Feb, [facility] [place] [address] [id number] [place] [id number] Feb, [facility] [place] [address] [id number] [place] [id number] Feb, [facility] [place] [address] [id number] [place] [id number] Feb, [facility] [place] [address] [id number] [place] [id number] Feb, [facility] [place] [address] [id number] [place] [id number] Feb, [facility] [place] [address] [id number] [place] [id number] Feb, [facility] [place] [address] [id number] [place] [id number] Feb, [facility] [place] [address] [id number] [place] [id number] Feb, [facility] [place] [address] [id number] [place] [id number] Feb, [facility] [place] [address] [id number] [place] [id number] Jan, [facility] [place] [address] [id number] [place] [id number] Jan, [facility] [place] [address] [id number] [place] [id number] Jan, [facility] [facility] [address] [id number] [place] [id number] Jan, Dental examination V72.2 [facility] [place] [address] [id number] [place] [id number] Jan, [facility] [place] [address] [id number] [place] [id number] Jan, [facility] [place] [address] [id number] [place] [id number] Jan, [facility] [place] [address] [id number] [place] [id number] Jan, [facility] [place] [address] [id number] [place] [id number] Jan, [facility] [place] [address] [id number] [place] [id number] Jan, [facility] [place] [address] [id number] [place] [id number] Jan, [facility] [place] [address] [id number] [place] [id number] Jan, [facility] [place] [address] [id number] [place] [id number] Jan, [facility] [place] [address] [id number] [place] [id number] Jan, [facility] [place] [address] [id number] [place] [id number] Jan, [facility] [place] [address] [id number] [place] [id number] Jan, [facility] [place] [address] [id number] [place] [id number] Jan, [facility] [place] [address] [id number] [place] [id number] Jan, [facility] [place] [address] [id number] [place] [id number] Jan, [facility] [place] [address] [id number] [place] [id number] Jan, [facility] [place] [address] [id number] [place] [id number] Jan, [facility] [place] [address] [id number] [place] [id number] Jan, [facility] [place] [address] [id number] [place] [id number] Jan, [facility] [place] [address] [id number] [place] [id number] Jan, [facility] [place] [address] [id number] [place] [id number] Jan, [facility] [place] [address] [id number] [place] [id number] Jan, [facility] [place] [address] [id number] [place] [id number] Jan, [facility] [place] [address] [id number] [place] [id number] Jan, [facility] [place] [address] [id number] [place] [id number] December, [facility] [place] [address] [id number] [place] [id number] December, [facility] [place] [address] [id number] [place] [id number] December, [facility] [place] [address] [id number] [place] [id number] December, [facility] [place] [address] [id number] [place] [id number] December, [facility] [place] [address] [id number] [place] [id number] December, [facility] [place] [address] [id number] [place] [id number] December, [facility] [place] [address] [id number] [place] [id number] December, [facility] [place] [address] [id number] [place] [id number] December, [facility] [place] [address] [id number] [place] [id number] December, [facility] [place] [address] [id number] [place] [id number] December, [facility] [place] [address] [id number] [place] [id number] December, [facility] [place] [address] [id number] [place] [id number] December, [facility] [place] [address] [id number] [place] [id number] December, [facility] [place] [address] [id number] [place] [id number] Nov, [facility] [place] [address] [id number] [place] [id number] Nov, [facility] [place] [address] [id number] [place] [id number] Nov, [facility] [place] [address] [id number] [place] [id number] Nov, [facility] [address] [facility] [id number] [address] [place] [address] Nov, [facility] [address] [facility] [id number] [address] [place] [address] Nov, [facility] [address] [facility] [id number] [address] [place] [address] Sep, [facility] [address] [facility] [id number] [address] [place] [address] Sep, [facility] [place] [facility] [address] [id number] [address] [place] [address], [place] [address] Jul, [facility] [address] [id number] [address] [place] [address], [place] [address] Jul, [facility] [address] [id number] [address] [place] [address], [place] [address] Jul, [facility] [address] [id number] [address] [place] [address], [place] [address] Jul, [facility] [address] [id number] [address] [place] [address], [place] [address] Jul, [facility] [address] [id number] [address] [place] [address], [place] [address] Jul, [facility] [address] [id number] [address] [place] [address], [place] [address] Jun, [facility] [address] [id number] [address] [place] [address], [place] [address] Jun, [facility] [address] [id number] [address] [place] [address], [place] [address] Jun, [facility] [address] [id number] [address] [place] [address], [place] [address] Jun, [facility] [address] [id number] [address] [place] [address], [place] [address] May, [facility] [address] [id number] [address] [place] [address], [place] [address] May, [facility] [address] [id number] [address] [place] [address], [place] [address] Feb, [facility] [address] [id number] [address] [place] [address], [place] [address] Feb, [facility] [address] [id number] [address] [place] [address], [place] [id number] Feb, [facility] [address] [id number] [address] [place] [address], [place] [id number] Feb, [facility] [address] [id number] [address] [place] [address], [place] [address] Jan, [facility] [address] [id number] [address] [place] [address], [place] [id number] Jan, [facility] [address] [id number] [address] [place] [address], [place] [id number] Jan, [facility] [address] [id number] [address] [place] [address], [place] [address] Jan, [facility] [address] [id number] [address] [place] [address], [place] [address] December, [facility] [address] [id number] [address] [place] [address], [place] [address] December, [facility] [address] [id number] [address] [place] [address], [place] [address] December, [facility] [address] [id number] [address] [place] [address], [place] [address] December, [facility] [address] [id number] [address] [place] [address], [place] [address] December, [facility] [address] [id number] [address] [place] [address], [place] [id number] December, [facility] [address] [id number] [address] [place] [address], [place] [phone] December, [facility] [address] [id number] [address] [place] [address], [place] [address] December, [facility] [address] [id number] [address] [place] [address], [place] [id number] December, [facility] [address] [id number] [address] [place] [address], [place] [id number] December, [facility] [address] [id number] [address] [place] [address], [place] [address] December, [facility] [address] [id number] [address] [place] [address], [place] [address] December, [facility] [address] [id number] [address] [place] [address], [place] [address] December, [facility] [address] [id number] [address] [place] [address], [place] [address] December, [facility] [address] [id number] [address] [place] [address], [place] [address] December, [facility] [address] [id number] [address] [place] [address], [place] [address] December, [facility] [address] [id number] [address] [place] [address], [place] [address] December, [facility] [address] [id number] [address] [place] [address], [place] [address] Nov, [facility] [address] [id number] [address] [place] [address], [place] [address] Nov, [facility] [address] [id number] [address] [place] [address], [place] [address] Nov, [facility] [address] [id number] [address] [place] [address], [place] [address] Nov, [facility] [address] [id number] [address] [place] [address], [place] [address] Nov, [facility] [address] [id number] [address] [place] [address], [place] [address] Nov, [facility] [address] [id number] [address] [place] [address], [place] [address] Nov, [facility] [address] [id number] [address] [place] [address], [place] [address] Nov, [facility] [address] [id number] [address] [place] [address], [place] [address] Nov, [facility] [address] [id number] [address] [place] [address], [place] [address] Nov, [facility] [address] [id number] [facility] [place] [address] Nov, [facility] [address] [id number] [address] [place] [address], [place] [address] Nov, [facility] [address] [id number] [address] [place] [address], [place] [id number] Nov, [facility] [address] [id number] [address] [place] [address], [place] [id number] Nov, [facility] [address] [id number] [address] [place] [address], [place] [id number] Nov, [facility] [address] [id number] [address] [place] [address], [place] [id number] Nov, [facility] [address] [id number] [address] [place] [address], [place] [id number] Oct, [facility] [address] [id number] [address] [place] [address], [place] [id number] Oct, [facility] [address] [id number] [address] [place] [address], [place] [id number] Oct, [facility] [address] [id number] [address] [place] [address], [place] [id number] Oct, [facility] [address] [id number] [address] [place] [address], [place] [id number] Oct, [facility] [address] [id number] [address] [place] [address], [place] [id number] Oct, [facility] [address] [id number] [address] [place] [address], [place] [id number] Oct, [facility] [address] [id number] [address] [place] [address], [place] [id number] Oct, [facility] [address] [id number] [address] [place] [address], [place] [id number] Sep, [facility] [address] [id number] [address] [place] [address], [place] [id number] Sep, [facility] [address] [id number] [address] [place] [address], [place] [id number] Sep, [facility] [address] [id number] [address] [place] [address], [place] [id number] Sep, [facility] [address] [id number] [address] [place] [address], [place] [id number] Sep, [facility] [address] [id number] [address] [place] [address], [place] [id number] Sep, [facility] [address] [id number] [address] [place] [address], [place] [id number] Sep, [facility] [address] [id number] [address] [place] [address], [place] [id number] Sep, [facility] [address] [id number] [address] [place] [address], [place] [id number] Sep, [facility] [address] [id number] [address] [place] [address], [place] [id number] Sep, [facility] [address] [id number] [address] [place] [address], [place] [id number] Aug, [facility] [address] [id number] [address] [place] [address], [place] [id number] Aug, [facility] [address] [id number] [address] [place] [address], [place] [id number] Jul, [facility] [address] [id number] [address] [place] [address], [place] [id number] Jul, [facility] [address] [id number] [address] [place] [address], [place] [id number] Jul, [facility] [address] [id number] [address] [place] [address], [place] [id number] Jul, [facility] [address] [id number] [address] [place] [address], [place] [id number] Jul, [facility] [address] [id number] [address] [place] [address], [place] [id number] Jul, [facility] [address] [id number] [address] [place] [address], [place] [id number] Jun, [facility] [address] [id number] [address] [place] [address], [place] [id number] Jun, [facility] [address] [id number] [address] [place] [address], [place] [id number] Jun, [facility] [address] [id number] [address] [place] [address], [place] [id number] May, [facility] [address] [id number] [address] [place] [address], [place] [id number] December, [facility] [address] [id number] [address] [place] [address], [place] [id number] December, [facility] [address] [id number] [address] [place] [address], [place] [id number] Jan, [facility] [address] [id number] [address] [place] [address], [place] [address] Jan, [facility] [address] [id number] [address] [place] [address], [place] [address] Jan, [facility] [address] [id number] [address] [place] [address], [place] [address] Jan, [facility] [address] [id number] [address] [place] [address], [place] [address] December, [facility] [address] [facility] [address] [id number] [id number] December, [facility] [address] [id number] [address] [place] [address], [place] [address] December, [facility] [address] [id number] [address] [place] [address], [place] [address] December, [facility] [address] [id number] [address] [place] [address], [place] [address] December, [facility] [address] [facility] [id number] [address] [place] [address] Oct, [facility] [address] [facility] [id number] [address] [place] [address] Jul, [facility] [address] [facility] [id number] [address] [place] [address] Jul, [facility] [address] [facility] [id number] [address] [place] [address] Jun, IMMUNIZATIONS No Known Immunizations SOCIAL HISTORY Never Assessed REASON FOR VISIT PLAN OF CARE VITAL SIGNS MEDICATIONS Unknown [...]
--- OUTSIDE RECORDS SUMMARY | 2019-11-24 00:49 | XMS REPORT ---
Author Author Vilma REBOLLAR Organization [facility] Address [address] [place] [address] Care Team Providers Care Lead Business Analyst Name Role Phone ANGELIA REBOLLAR Unavailable PROBLEMS Type Condition ICD9-CM Code MKR59-IB Code Onset Dates Condition S tatus SNOMED Code Problem Elevated blood pressure reading without diagnosi s of hypertension 796.2 Active 020203208 Problem Irregular menstrual cycle N92.6 Acti ve 01245950 Problem Lower abdominal pain R10.30 Active 24103511 Problem Chronic gingivitis, plaque induced K05.10 Active 25280182 Problem Positive serology for syphilis A53.0 Active 623064427 Problem Constipation, unspecified constipation type K59.00 Active 31251879 Problem Fatigue, unspecified type R53.83 Acti ve 03898339 Problem Anxiety F41.9 Active 07482209 Problem Tobacco abuse Z72.0 Active 947858 05 ALLERGIES No Information ENCOUNTERS Encounter Location Date Diagnosis [facility] [address] [facility] [id number] [address] [place] [address] Jul, Pharyngitis J02.9 [facility] [id number] [place] [address] May, Positive serology for syphilis A53.0 [facility] [id number] [place] [address] May, [facility] [id number] [place] [address] Apr, [place] [address] [address] Apr, Concern about STD in female without diag nosis Z71.1 ; Needlestick injury due to hypodermic needle W46.0XXA ; Candidal vaginitis B37.3 and Trichomonas vaginitis A59.01 [facility] [address] [facility] [id number] [address] [place] [address] December, UTI symptoms R39.9 and Acute cystitis with hematuria N30.01 [place] [id number] [place] [address] [id number] Feb, Acute cystitis without hematuria N30.[address] [id number] Oct, [facility] [address] [facility] [place] [id number] Oct, Dental examination Z01.20 [facility] [address] [address] Oct, Dental examination Z01.20 and Chronic gi ngivitis, plaque induced K05.10 [facility] [id number] [place] [address] Oct, Dental examination Z01.[address] [id number] Jun, [address] [id number] May, [address] [id number] May, [address] [id number] Apr, [address] [id number] Apr, [address] [id number] Feb, Encounter for test, result unknown Z32.[address] [id number] Feb, [address] [id number] Feb, [address] [id number] Feb, Encounter for test, result unknown Z32.00 [place] [id number] [place] [id number] Jan, [facility] [place] [address] [id number] [place] [id number] Jan, [facility] [place] [address] [id number] [place] [id number] Jan, [facility] [place] [address] [id number] [place] [address] December, [facility] [place] [address] [id number] [place] 860537606 December, [facility] [place] [address] [id number] [place] [id number] Nov, [facility] [place] [address] [id number] [place] [id number] Nov, [facility] [place] [address] [id number] [place] [id number] Nov, [facility] [place] [address] [id number] [place] [id number] Oct, [facility] [place] [address] [id number] [place] [id number] Oct, [facility] [place] [address] [id number] [place] 504769645 Oct, [facility] [place] [address] [id number] [place] [id number] Oct, [facility] [place] [address] [id number] [place] [id number] Sep, [facility] [place] [address] [id number] [place] 428[address]7860 Sep, [facility] [place] [address] [id number] [place] 743881720 Sep, [facility] [place] [address] [id number] [place] 698383727 Sep, [facility] [place] [address] [id number] [place] 794376816 Sep, [facility] [place] [address] [id number] [place] 185960509 Aug, [facility] [place] [address] [id number] [place] [id number] Jul, [facility] [place] [address] [id number] [place] [id number] Jul, [facility] [place] [address], [place] [id number] Jun, [facility] [place] [address], [place] [id number] Jun, [facility] [place] [address], [place] [id number] Jun, [facility] [place] [address], [place] [id number] Jun, [facility] [place] [address], [place] [id number] Jun, [facility] [place] [address], [place] [id number] Jun, [facility] [place] [address], [place] [id number] May, [facility] [place] [address] [id number] May, [facility] [place] [address], [place] [id number] May, [facility] [address] [id number] [place] [address] Apr, Bronchitis J40 [facility] [place] [address] [id number] Mar, [facility] [place] [address] [id number] Feb, [facility] [place] [address] [id number] Feb, [facility] [place] [address] [id number] Feb, Sore throat J02.9 and Ear pain, right H92.01 [facility] [place] [address] [id number] Jan, [facility] [place] [address] [id number] Jan, Viral syndrome B34.9 ; Other seasonal allergic rhinitis J30.2 and Post-nasal drip R09.82 [facility] [place] [address] [id number] Jan, [place] [id number] [place] [address] [id number] Nov, [address] [id number] Oct, test positive Z32.01 [place] [address] [address] Oct, [place] [address] [address] Oct, [place] [address] [address] Sep, Kidney stones N20.0 [place] [address] [address] 18 Sep, 2015 [place] [address] [address] Sep, Pelvic pain R10.2 ; Left lower quadrant pain R10.32 ; Vaginal discharge N89.8 ; Routine screening for STI (sexually transmitted infection) Z11.3 ; Unprotected sexual intercourse Z72.51 ; Kidney stone N20.0 ; History of dyspareunia in female Z87.42 and Screening for malignant neoplasm of cervix Z12.4 [place] [address] [address] Jun, Constipation, unspecified constipation t ype K59.00 ; Lower abdominal pain R10.30 ; Irregular menstrual cycle N92.6 ; Anxiety F41.9 ; Fatigue, unspecified type R53.83 and Tobacco abuse Z72.[address] [id number] Jun, [address] [id number] Jun, Nausea R11.[address] [id number] May, Alopecia L65.[address] [id number] May, [address] [id number] C[facility] [place] [id number] Apr, [facility] [place] [address] [id number] [place] 534[address]27[address] Mar, [facility] [place] [address] [id number] [place] 949398495 Mar, [facility] [place] [address] [id number] [id number] Mar, [facility] [address] [id number] [place] [address] Mar, test negative V72.41 [facility] [place] [address] [id number] [place] 112831509 Mar, [facility] [place] [id number] [place] [address], [place] [id number] Mar, [facility] [place] [address] [id number] [place] [id number] Feb, [facility] [place] [id number] [place] [address], [place] [id number] Feb, [facility] [place] [id number] [place] [address], [place] [id number] Feb, [facility] [place] [address] [id number] [place] [id number] Feb, [facility] [place] [address] [id number] [place] [id number] Feb, [facility] [place] [id number] [place] [address], [place] [id number] Feb, [facility] [place] [id number] [place] [address], [place] [id number] Feb, [facility] [place] [id number] [place] [address], [place] 919762502 Feb, [facility] [place] [id number] [place] [address], [place] [id number] Feb, [facility] [place] [id number] [place] [address], [place] [id number] Feb, [facility] [place] [id number] [place] [address], [place] [id number] Feb, [facility] [place] [id number] [place] [address], [place] [id number] Feb, [facility] [place] [address] [id number] [place] [id number] Jan, [facility] [place] [address] [id number] [place] 596169432 Jan, [facility] [place] [address] [id number] CENTER [facility] [place] [id number] Jan, [facility] [address] [facility] [address] [id number] [facility] [place] [facility] [place] [id number] Jan, Dental examination V72.2 [facility] [place] [address] [id number] [place] [id number] Jan, [facility] [place] [address] [id number] [place] [id number] Jan, [facility] [place] [address] [id number] CENTER [facility] [place] 864376972 Jan, [facility] [place] [address] [id number] CENTER [facility] [place] [id number] Jan, [facility] [place] [address] [id number] [place] [address], [place] 955543532 Jan, [facility] [place] [address] [id number] CENTER [facility] [place] [id number] Jan, [facility] [place] [address] [id number] [place] [address], [place] [id number] 14 Jan, 2015 [facility] [place] [address] [id number] CENTER [facility] [place] 526568097 Jan, [facility] [place] [address] [id number] [place] [address], [place] [id number] Jan, [facility] [place] [address] [id number] [place] [address], [place] [id number] Jan, [facility] [place] [address] [id number] CENTER [facility] [place] [id number] Jan, [facility] [place] [address] [id number] [place] 318786471 Jan, [facility] [place] [address] [id number] [place] [address], [place] [id number] Jan, [facility] [place] [address] [id number] [place] [address], [place] 239153094 Jan, [facility] [place] [address] [id number] [place] [address], [place] 529452585 Jan, [facility] [place] [address] [id number] [place] 627243284 Jan, [facility] [place] [address] [id number] [place] [id number] Jan, [facility] [place] [address] [id number] [place] [id number] Jan, 2014 [facility] [place] [address] [id number] [place] [id number] Jan, 2014 [facility] [place] [address] [id number] [place] [id number] Jan, [facility] [place] [address] [id number] [place] [id number] Jan, [facility] [place] [address] [id number] [place] [id number] Jan, [facility] [place] [address] [id number] [place] [id number] Jan, [facility] [place] [address] [id number] [place] [id number] Jan, [facility] [place] [address] [id number] [place] 720592171 December, [facility] [place] [address] [id number] [place] 039741401 December, [facility] [place] [address] [id number] [place] [id number] December, [facility] [place] [address] [id number] [place] 877606705 December, [facility] [place] [address] [id number] [place] [id number] December, [facility] [place] [address] [id number] [place] 577773696 December, [facility] [place] [address] [id number] [place] 032439760 December, [facility] [place] [address] [id number] [place] 450390531 December, [facility] [place] [address] [id number] [place] [id number] December, [facility] [place] [address] [id number] [place] 604808538 December, [facility] [place] [address] [id number] [place] [id number] December, [facility] [place] [address] [id number] [place] [id number] December, [facility] [place] [address] [id number] [place] 636851678 December, [facility] [place] [address] [id number] [place] [id number] December, [facility] [place] [address] [id number] CENTER [facility] [place] [id number] Nov, [facility] [place] [address] [id number] CENTER OF [place] 735137538 Nov, [facility] [place] [address] [id number] [place] [id number] Nov, [facility] [place] [address] [id number] [place] [id number] Nov, [facility] [id number] [place] [address] Nov, [facility] [id number] [place] [address] Nov, [facility] [address] [address] Sep, [facility] [address] [address] Sep, [facility] [id number] [place] [address] Jul, [facility] [id number] [place] [address] Jul, [facility] [address] [address] Jul, [facility] [id number] [place] [address] Jul, [facility] [address] [id number] [place] [address] Jul, [facility] [address] [address] Jul, [facility] [address] [facility] [id number] [place] [address] Jun, [facility] [address] [facility] [id number] [place] [address] Jun, [facility] [address] [id number] [place] [address] Jun, [facility] [address] [id number] [place] [address] Jun, [facility] [address] [facility] [id number] [place] [address] May, [facility] [address] [id number] [place] [address] May, [facility] [address] [id number] [place] [address] Feb, [facility] [address] [id number] [place] [address] Feb, [facility] [address] [id number] [place] [address] Feb, [facility] [address] [id number] [place] [address] Feb, [facility] [address] [id number] [place] [address] Jan, [facility] [address] [id number] [place] [address] Jan, [facility] [address] [id number] [place] [address] Jan, [facility] [address] [id number] [place] [address] Jan, [facility] [address] [id number] [place] [address] December, [facility] [address] [id number] [place] [address] December, [facility] [address] [id number] [place] [address] December, [facility] [address] [id number] [place] [address] December, [facility] [address] [id number] [place] [address] December, [facility] [address] [id number] [place] [address] December, [facility] [address] [id number] [place] [address] December, [facility] [address] [id number] [place] [address] December, [facility] [address] [id number] [place] [address] December, [facility] [address] [id number] [place] [address] December, [facility] [address] [id number] [place] [address] December, [facility] [address] [id number] [place] [address] December, [facility] [address] [id number] [place] [address] December, [facility] [address] [id number] [place] [address] December, [facility] [address] [id number] [place] [address] December, [facility] [address] [id number] [place] [address] December, [facility] [address] [id number] [place] [address] December, [facility] [address] [id number] [place] [address] Nov, [facility] [address] [id number] [place] [address] Nov, [facility] [address] [id number] [place] [address] Nov, [facility] [address] [id number] [place] [address] Nov, [facility] [address] [id number] [place] [address] Nov, [facility] [address] [id number] [place] [address] Nov, [facility] [address] [id number] [place] [address] Nov, [facility] [address] [id number] [place] [address] Nov, [facility] [address] [id number] [place] [address] Nov, [facility] [address] [id number] [place] [address] Nov, [facility] [address] [id number] [place] [address] Nov, [facility] [address] [id number] [place] [address] Nov, [facility] [address] [id number] [place] [address] Nov, [facility] [address] [id number] [place] [address] Nov, [facility] [address] [id number] [place] [address] Nov, [facility] [address] [id number] [place] [address] Nov, [facility] [address] [id number] [place] [address] Oct, [facility] [address] [id number] [place] [address] Oct, [facility] [address] [id number] [place] [address] Oct, [facility] [address] [id number] [place] [address] Oct, [facility] [address] [id number] [place] [address] Oct, [facility] [address] [id number] [place] [address] Oct, [facility] [address] [id number] [place] [address] Oct, [facility] [address] [id number] [place] [address] Oct, [facility] [address] [id number] [place] [address] Sep, [facility] [address] [id number] [place] [address] Sep, [facility] [address] [id number] [place] [address] Sep, [facility] [address] [id number] [place] [address] Sep, [facility] [address] [id number] [place] [address] Sep, [facility] [address] [id number] [place] [address] Sep, [facility] [address] [id number] [place] [address] Sep, [facility] [address] [id number] [place] [address] Sep, [facility] [address] [id number] [place] [address] Sep, [facility] [address] [id number] [place] [address] Sep, [facility] [address] [id number] [place] [address] Aug, [facility] [address] [id number] [place] [address] Aug, [facility] [address] [id number] [place] [address] Jul, [facility] [address] [id number] [place] [address] Jul, [facility] [address] [id number] [place] [address] Jul, [facility] [address] [id number] [place] [address] Jul, [facility] [address] [id number] [place] [address] Jul, [facility] [address] [id number] [place] [address] Jul, [facility] [id number] [place] [address] Jun, [facility] [address] [id number] [place] [address] Jun, [facility] [address] [id number] [place] [address] Jun, [facility] [address] [id number] [place] [address] May, [facility] [address] [id number] [place] [address] December, [facility] [address] [id number] [place] [address] December, [facility] [address] [id number] [place] [address] Jan, [facility] [id number] [place] [address] Jan, [facility] [address] [id number] [place] [address] Jan, [facility] [address] [id number] [place] [address] Jan, [facility] [address] [id number] [place] [address] December, [facility] [address] [id number] [place] [id number] December, [facility] [address] [id number] [place] [address] December, [facility] [id number] [place] [address] December, [facility] [address] [id number] [place] [address] December, [facility] [id number] [place] [address] Oct, [facility] [address] [id number] [place] [address] Jul, [facility] [id number] [place] [address] Jul, [facility] [address] [id number] [place] [address] Jun, IMMUNIZATIONS No Known Immunizations SOCIAL HISTORY Never Assessed REASON FOR VISIT PLAN OF CARE VITAL SIGNS Height 63 in 2014-01-23 Weight 195.06 lbs 2014-01-23 Blood pressure systolic 136 mmHg 2014-01-23 Blood pressure diastolic 90 mmHg 2014-01-23 MEDICATIONS No Known Medications RESULTS No Results PROCEDURES Procedure Date Ordered Result Body Site NON-STRESS TEST January 23, 2014 URINE-NO MICRO January 23, 2014 INSTRUCTIONS MEDICATIONS ADMINISTERED No Known Medications [...]
--- OUTSIDE RECORDS SUMMARY | 2019-11-24 00:49 | XMS REPORT ---
Author Author Vilma Guthrie Organization [facility] Address [address] [place] [address] Care Team Providers Care Box Gluer Name Role Phone NELLY Guthrie Unavailable PROBLEMS Type Condition ICD9-CM Code RXC48-GY Code Onset Dates Condition S tatus SNOMED Code Problem Elevated blood pressure reading without diagnosi s of hypertension 796.2 Active 705879280 Problem Irregular menstrual cycle N92.6 Acti ve 63396640 Problem Lower abdominal pain R10.30 Active 86541480 Problem Chronic gingivitis, plaque induced K05.10 Active 16960793 Problem Positive serology for syphilis A53.0 Active 029430110 Problem Constipation, unspecified constipation type K59.00 Active 49053518 Problem Fatigue, unspecified type R53.83 Acti ve 36765200 Problem Anxiety F41.9 Active 05850152 Problem Tobacco abuse Z72.0 Active 747318 05 ALLERGIES No Information ENCOUNTERS Encounter Location Date Diagnosis [facility] [address] [facility] [id number] [place] [address] Jul, Pharyngitis J02.9 [facility] [id number] [place] [address] May, Positive serology for syphilis A53.0 [facility] [id number] [place] [address] May, [facility] [address] [address] Apr, [facility] [address] [address] Apr, Concern about STD in female without diag nosis Z71.1 ; Needlestick injury due to hypodermic needle W46.0XXA ; Candidal vaginitis B37.3 and Trichomonas vaginitis A59.01 [facility] [address] [facility] [id number] [address] [place] [address] December, UTI symptoms R39.9 and Acute cystitis with hematuria N30.01 [facility] [address] [id number] Feb, Acute cystitis without hematuria N30.[address] [id number] Oct, [facility] [address] [facility] [place] [id number] Oct, Dental examination Z01.20 [facility] [address] [address] Oct, Dental examination Z01.20 and Chronic gi ngivitis, plaque induced K05.10 [facility] [id number] [place] [address] Oct, Dental examination Z01.[address] [id number] Jun, [address] [id number] May, [address] [id number] May, [address] [id number] Apr, [address] [id number] Apr, [address] [id number] Feb, Encounter for test, result unknown Z32.[address] [id number] Feb, [address] [id number] Feb, [address] [id number] Feb, Encounter for test, result unknown Z32.[address] [id number] [place] [id number] Jan, [facility] [place] [address] [id number] [place] [id number] Jan, [facility] [place] [address] [id number] [place] 6[address]40[address] Jan, [facility] [place] [address] [id number] [place] [id number] December, [facility] [place] [address] [id number] [place] [address] December, [facility] [place] [address] [id number] [place] [id number] Nov, [facility] [place] [address] [id number] [place] [id number] Nov, [facility] [place] [address] [id number] [place] [id number] Nov, [facility] [place] [address] [id number] [place] [id number] Oct, [facility] [place] [address] [id number] [place] [id number] Oct, [facility] [place] [address] [id number] [place] [id number] Oct, [facility] [place] [address] [id number] [place] [id number] Oct, [facility] [place] [address] [id number] [id number] Sep, [facility] [place] [address] [id number] [place] [id number] Sep, [facility] [place] [address] [id number] [place] [id number] Sep, [facility] [place] [address] [id number] [place] [id number] Sep, [facility] [place] [address] [id number] [place] [id number] Sep, [facility] [place] [address] [id number] [place] [id number] Aug, [facility] [place] [address] [id number] [place] [id number] Jul, [facility] [place] [address] [id number] [place] [address], [place] [id number] Jul, [facility] [place] [address], [place] [id number] Jun, [facility] [place] [address], [place] [id number] Jun, [facility] [place] [address], [place] [id number] Jun, [facility] [place] [address], [place] [id number] Jun, [facility] [place] [address], [place] [id number] Jun, [facility] [place] [address], [place] [id number] Jun, [facility] [place] [address], [place] [id number] May, [facility] [place] [address] [id number] May, [facility] [place] [address], [place] [id number] May, [facility] [address] [facility] [place] [address] Apr, Bronchitis J40 [facility] [place] [address] [id number] Mar, [facility] [place] [address] [id number] Feb, [facility] [place] [address] [id number] Feb, [facility] [place] [address] [id number] Feb, Sore throat J02.9 and Ear pain, right H92.01 [facility] [place] [address] [id number] Jan, [facility] [place] [address] [id number] Jan, Viral syndrome B34.9 ; Other seasonal allergic rhinitis J30.2 and Post-nasal drip R09.82 [facility] [place] [address] [id number] Jan, [address] [id number] Nov, [address] [id number] Oct, test positive Z32.01 [place] [address] [address] Oct, [place] [address] [address] Oct, [place] [address] [address] Sep, Kidney stones N20.0 [place] [address] [address] 18 Sep, 2015 [place] [address] [address] Sep, Pelvic pain R10.2 ; Left lower quadrant pain R10.32 ; Vaginal discharge N89.8 ; Routine screening for STI (sexually transmitted infection) Z11.3 ; Unprotected sexual intercourse Z72.51 ; Kidney stone N20.0 ; History of dyspareunia in female Z87.42 and Screening for malignant neoplasm of cervix Z12.4 [place] [address] [address] 12 Jun, 2015 Constipation, unspecified constipation t ype K59.00 ; Lower abdominal pain R10.30 ; Irregular menstrual cycle N92.6 ; Anxiety F41.9 ; Fatigue, unspecified type R53.83 and Tobacco abuse Z72.[address] [id number] Jun, [address] [id number] Jun, Nausea R11.[address] [id number] May, Alopecia L65.[address] [id number] May, [facility] [place] [address] [id number] [place] [id number] Apr, [facility] [place] [address] [id number] [id number] Mar, [facility] [place] [id number] [place] [address], [place] [id number] Mar, [facility] [place] [address] [id number] [id number] Mar, [facility] [address] [facility] [place] [address] Mar, test negative V72.41 [facility] [place] [address] [id number] [id number] Mar, [facility] [place] [id number] [place] [address], [place] [id number] Mar, [facility] [place] [address] [id number] [id number] Feb, [facility] [place] [id number] [place] [address], [place] [id number] Feb, [facility] [place] [id number] [place] [address], [place] [id number] Feb, [facility] [place] [id number] [place] [address], [place] [id number] Feb, [facility] [place] [id number] [place] [address], [place] [id number] Feb, [facility] [place] [address] [id number] [id number] Feb, [facility] [place] [id number] [place] [address], [place] [id number] Feb, [facility] [place] [id number] [place] [address], [place] [id number] Feb, [facility] [place] [id number] [place] [address], [place] [id number] Feb, [facility] [place] [id number] [place] [address], [place] [id number] Feb, [facility] [place] [address] [id number] [id number] Feb, [facility] [place] [id number] [place] [address], [place] [id number] Feb, [facility] [place] [address] [id number] [place] [id number] Jan, [facility] [place] [address] [id number] [place] [id number] Jan, [facility] [place] [address] [id number] [place] [id number] Jan, [facility] [place] [address] [facility] [address] [id number] [facility] [id number] Jan, Dental examination V72.2 [facility] [place] [address] [id number] [place] [id number] Jan, [facility] [place] [address] [id number] [place] [id number] Jan, [facility] [place] [address] [id number] [id number] Jan, [facility] [place] [address] [id number] [place] [address], [place] [id number] Jan, [facility] [place] [address] [id number] [place] [address], [place] [id number] 16 Jan, 2015 [facility] [place] [address] [id number] [id number] 15 Jan, 2015 [facility] [place] [address] [id number] [place] [address], [place] [id number] 14 Jan, 2015 [facility] [place] [address] [id number] [id number] Jan, [facility] [place] [address] [id number] [place] [address], [place] [id number] Jan, [facility] [place] [address] [id number] [place] [address], [place] [id number] Jan, [facility] [place] [address] [id number] [place] [address], [place] [id number] Jan, [facility] [place] [address] [id number] [place] [id number] Jan, [facility] [place] [address] [id number] [place] [address], [place] [id number] Jan, [facility] [place] [address] [id number] [place] [address], [place] [id number] Jan, [facility] [place] [address] [place] [id number] Jan, [facility] [place] [address] [id number] [place] [id number] Jan, [facility] [place] [address] [id number] [place] [id number] Jan, [facility] [place] [address] [id number] [place] [id number] Jan, 2014 [facility] [place] [address] [id number] [place] [id number] Jan, 2014 [facility] [place] [address] [id number] [place] [id number] Jan, 2014 [facility] [place] [address] [id number] [place] [id number] Jan, [facility] [place] [address] [id number] [place] [id number] Jan, [facility] [place] [address] [id number] [place] [id number] Jan, [facility] [place] [address] [id number] [place] [id number] Jan, [facility] [place] [address] [id number] [place] [id number] December, [facility] [place] [address] [id number] [place] [id number] December, [facility] [place] [address] [id number] [place] [id number] December, [facility] [place] [address] [id number] [place] [id number] December, [facility] [place] [address] [id number] [place] [id number] December, [facility] [place] [address] [id number] [place] [id number] December, [facility] [place] [address] [id number] [place] [id number] December, [facility] [place] [address] [id number] [place] [id number] December, [facility] [place] [address] [id number] [place] [id number] December, [facility] [place] [address] [id number] [place] [id number] December, [facility] [place] [address] [id number] [place] [id number] December, [facility] [place] [address] [id number] [id number] December, [facility] [place] [address] [id number] [place] [id number] December, [facility] [place] [address] [id number] [id number] December, [facility] [place] [address] [id number] [id number] Nov, [facility] [place] [address] [facility]07757[facility] [id number] Nov, [facility] [place] [address] [facility]07757[facility] [id number] Nov, [facility] [place] [address] [facility]07757[facility] [id number] Nov, [facility] [id number] [place] [address] Nov, [facility] [id number] [place] [address] Nov, [facility] [address] [address] Sep, [facility] [id number] [place] [address] Sep, [facility] [id number] [place] [address] Jul, [facility] [id number] [place] [address] Jul, [facility] [id number] [place] [address] Jul, [facility] [id number] [place] [address] Jul, [facility] [id number] [place] [address] Jul, [facility] [id number] [place] [address] Jul, [facility] [address] [facility] [id number] [facility] [place] [address] Jun, [facility] [address] [facility] [id number] [facility] [place] [address] Jun, [facility] [address] [facility] [place] [address] Jun, [facility] [address] [facility] [place] [address] Jun, [facility] [address] [facility] [id number] [facility] [place] [address] May, [facility] [address] [facility] [place] [address] May, [facility] [address] [facility] [place] [address] Feb, [facility] [address] [facility] [place] [address] Feb, [facility] [address] [facility] [place] [address] Feb, [facility] [address] [facility] [place] [address] Feb, [facility] [address] [facility] [place] [address] Jan, [facility] [address] [facility] [place] [address] Jan, [facility] [address] [facility] [id number] [place] [address] Jan, [facility] [address] [facility] [place] [address] Jan, [facility] [address] [facility] [place] [address] December, [facility] [address] [facility] [place] [address] December, [facility] [address] [facility] [id number] [place] [address] December, [facility] [address] [id number] [place] [address] December, [facility] [address] [facility] [id number] [place] [address] December, [facility] [address] [facility] [place] [address] December, [facility] [address] [facility] [place] [address] December, [facility] [address] [facility] [id number] [place] [address] December, [facility] [address] [facility] [place] [address] December, [facility] [address] [facility] [place] [address] December, [facility] [address] [facility] [place] [address] December, [facility] [address] [facility] [place] [address] December, [facility] [address] [facility] [place] [address] December, [facility] [address] [id number] [place] [address] December, [facility] [address] [id number] [place] [address] December, [facility] [address] [id number] [place] [address] December, [facility] [address] [id number] [place] [address] December, [facility] [address] [id number] [place] [address] Nov, [facility] [address] [id number] [place] [address] Nov, [facility] [address] [facility] [id number] [place] [address] Nov, [facility] [address] [id number] [place] [address] Nov, [facility] [address] [id number] [place] [address] Nov, [facility] [address] [id number] [place] [address] Nov, [facility] [address] [facility] [id number] [place] [address] Nov, [facility] [address] [id number] [place] [address] Nov, [facility] [address] [id number] [place] [address] Nov, [facility] [address] [id number] [place] [address] Nov, [facility] [address] [id number] [place] [address] Nov, [facility] [address] [id number] [place] [address] Nov, [facility] [address] [id number] [place] [address] Nov, [facility] [address] [id number] [place] [address] Nov, [facility] [address] [id number] [place] [address] Nov, [facility] [address] [id number] [place] [address] Nov, [facility] [address] [id number] [place] [address] Oct, [facility] [address] [id number] [place] [address] Oct, [facility] [address] [id number] [place] [address] Oct, [facility] [address] [facility] [id number] [place] [address] Oct, [facility] [address] [facility] [id number] [place] [address] Oct, [facility] [address] [id number] [place] [address] Oct, [facility] [address] [id number] [place] [address] Oct, [facility] [address] [facility] [id number] [place] [address] Oct, [facility] [address] [id number] [place] [address] Sep, [facility] [address] [id number] [place] [address] Sep, [facility] [address] [id number] [place] [address] Sep, [facility] [address] [id number] [place] [address] Sep, [facility] [address] [id number] [place] [address] Sep, [facility] [address] [id number] [place] [address] Sep, [facility] [address] [id number] [place] [address] Sep, [facility] [address] [facility] [id number] [place] [address] Sep, [facility] [address] [id number] [place] [address] Sep, [facility] [address] [id number] [place] [address] Sep, [facility] [address] [id number] [place] [address] Aug, [facility] [address] [id number] [place] [address] Aug, [facility] [address] [id number] [place] [address] Jul, [facility] [address] [id number] [place] [address] Jul, [facility] [address] [id number] [place] [address] Jul, [facility] [address] [id number] [place] [address] Jul, [facility] [address] [id number] [place] [address] Jul, [facility] [address] [id number] [place] [address] Jul, [facility] [id number] [place] [address] Jun, [facility] [address] [id number] [place] [address] Jun, [facility] [address] [id number] [place] [address] Jun, [facility] [address] [id number] [place] [address] May, [facility] [address] [id number] [place] [address] December, [facility] [address] [id number] [place] [address] December, [facility] [address] [id number] [place] [address] Jan, [facility] [address] [id number] [place] [address] Jan, [facility] [address] [id number] [place] [address] Jan, [facility] [address] [id number] [place] [address] Jan, [facility] [address] [id number] [place] [address] December, [facility] [address] [facility] [id number] [place] [id number] December, [facility] [address] [id number] [place] [address] December, [facility] [id number] [place] [address] December, [facility] [address] [id number] [place] [address] December, [facility] [id number] [place] [address] Oct, [facility] [address] [id number] [place] [address] Jul, [facility] [address] [id number] [place] [address] Jul, [facility] [address] [id number] [place] [address] Jun, IMMUNIZATIONS No Known Immunizations SOCIAL HISTORY [...]
--- OUTSIDE RECORDS SUMMARY | 2019-11-24 00:50 | XMS REPORT ---
Author Author Vilma Guthrie Organization [facility] Address [address] [place] [address] Lab Technician Name Role Phone NELLY Guthrie Unavailable PROBLEMS Type Condition ICD9-CM Code NON88-VB Code Onset Dates Condition S tatus SNOMED Code Problem Elevated blood pressure reading without diagnosi s of hypertension 796.2 Active 358129621 Problem Irregular menstrual cycle N92.6 Acti ve 68830245 Problem Tobacco abuse Z72.0 Active 301815 05 Problem Chronic gingivitis, plaque induced K05.10 Active 04393852 Problem Lower abdominal pain R10.30 Active 13188807 Problem Constipation, unspecified constipation type K59.00 Active 95447397 Problem Fatigue, unspecified type R53.83 Acti ve 69404188 Problem Anxiety F41.9 Active 76359431 ALLERGIES No Information ENCOUNTERS Encounter Location Date Diagnosis [facility] [address] [id number] [address] [place] [address] December, UTI symptoms R39.9 and Acute cystitis with hematuria N30.01 [facility] [id number] [place] [id number] Feb, Acute cystitis without hematuria N30.00 [facility] [address] [facility] [id number] [place] [id number] 13 Oct, 2017 [facility] [address] [id number] [address] [place] [id number] Oct, Dental examination Z01.20 [facility] [address] [facility] [id number] [address] [place] [address] Oct, Dental examination Z01.20 an d Chronic gingivitis, plaque induced K05.10 [facility] [address] [id number] [address] [place] [address] Oct, Dental examination Z01.20 [facility] [place] [address] [id number] [place] [id number] Jun, [facility] [place] [address] [id number] [place] [id number] May, [facility] [place] [address] [id number] [place] [id number] May, [facility] [place] [address] [id number] [place] [id number] Apr, [facility] [place] [address] [id number] [place] [id number] Apr, [facility] [place] [address] [id number] [place] [id number] Feb, Encounter for test, result unk nown Z32.00 [facility] [place] [address] [id number] [place] [id number] Feb, [facility] [place] [address] [id number] [place] [id number] Feb, [facility] [place] [address] [id number] [place] [id number] Feb, Encounter for test, result unk nown Z32.00 [facility] [place] [address] [id number] [place] [id number] Jan, [facility] [place] [address] [id number] [place] [id number] Jan, [facility] [place] [address] [id number] [place] [id number] Jan, [facility] [place] [address] [id number] [place] [id number] December, [facility] [place] [address] [id number] [place] [id number] December, [facility] [place] [address] [id number] [place] [id number] Nov, [facility] [place] [address] [id number] [place] [id number] Nov, [facility] [place] [address] [id number] [place] [id number] Nov, [facility] [place] [address] [id number] [place] [id number] Oct, [facility] [place] [address] [id number] [place] [id number] Oct, [facility] [place] [address] [id number] [place] [id number] Oct, [facility] [place] [address] [id number] [place] [id number] Oct, [facility] [place] [address] [id number] [place] [id number] Sep, [facility] [place] [address] [id number] [place] [id number] Sep, [facility] [place] [address] [id number] [place] [id number] Sep, [facility] [place] [address] [id number] [place] [id number] Sep, [facility] [place] [address] [id number] [place] [id number] Sep, [facility] [place] [address] [id number] [place] [id number] Aug, [facility] [place] [address] [id number] [place] [id number] Jul, [facility] [place] [address] [id number] [place] [id number] Jul, [facility] [place] [address] [id number] [place] [id number] Jun, [facility] [place] [address] [id number] [place] [id number] Jun, [facility] [place] [address] [id number] [place] [id number] Jun, [facility] [place] [address] [id number] [place] [id number] Jun, [facility] [place] [address] [id number] [place] [id number] Jun, [facility] [place] [address] [id number] [place] [id number] Jun, [facility] [place] [address] [id number] [place] [id number] May, [facility] [place] [address] [id number] [place] [id number] May, [facility] [place] [address] [id number] [place] [id number] May, [facility] [address] [facility] [id number] [address] [place] [address] Apr, Bronchitis J40 [facility] [place] [address] [id number] [place] [id number] Mar, [facility] [place] [address] [id number] [place] [id number] Feb, [facility] [place] [address] [id number] [place] [id number] Feb, [facility] [place] [address] [id number] [place] [id number] Feb, Sore throat J02.9 and Ear pain, right H9 2.01 [facility] [place] [address] [id number] [place] [id number] Jan, [facility] [place] [address] [id number] [place] [id number] Jan, Viral syndrome B34.9 ; Other seasonal al lergic rhinitis J30.2 and Post-nasal drip R09.82 [facility] [place] [address] [id number] [place] [id number] Jan, [facility] [place] [address] [id number] [place] [id number] Nov, [facility] [place] [address] [id number] [place] [id number] Oct, test positive Z32.01 [facility] [address] [facility] [id number] [address] [place] [address] Oct, [facility] [address] [id number] [address] [place] [address] Oct, [facility] [address] [address] Sep, Kidney stones N20.0 [facility] [id number] [place] [address] 18 Sep, 2015 [facility] [address] [address] Sep, Pelvic pain R10.2 ; Left low er quadrant pain R10.32 ; Vaginal discharge N89.8 ; Routine screening for STI (sexually transmitted infection) Z11.3 ; Unprotected sexual intercourse Z72.51 ; Kidney stone N20.0 ; History of dyspareunia in female Z87.42 and Screening for malignant neoplasm of cervix Z12.4 [facility] [address] [address] Jun, Constipation, unspecified co nstipation type K59.00 ; Lower abdominal pain R10.30 ; Irregular menstrual cycle N92.6 ; Anxiety F41.9 ; Fatigue, unspecified type R53.83 and Tobacco abuse Z72.0 [facility] [place] [address] [id number] [place] [id number] Jun, [facility] [place] [address] [id number] [place] [id number] Jun, Nausea R11.0 [facility] [place] [address] [id number] [place] [id number] May, Alopecia L65.9 [facility] [place] [address] [id number] [place] [id number] May, [facility] [place] [address] [id number] [place] [id number] Apr, [facility] [place] [address] [id number] [place] [id number] Mar, [facility] [place] [address] [id number] [place] [id number] Mar, [facility] [place] [address] [id number] [place] [address], [place] [id number] Mar, [facility] [address] [id number] [address] [address] Mar, test negative V72. 41 [facility] [place] [address] [id number] [place] [id number] Mar, [facility] [place] [address] [id number] [place] [id number] Mar, [facility] [place] [address] [id number] [place] [id number] Feb, [facility] [place] [address] [id number] [place] [id number] Feb, [facility] [place] [address] [id number] [place] [id number] Feb, [facility] [place] [address] [id number] [place] [id number] Feb, [facility] [place] [address] [id number] [place] [id number] Feb, [facility] [place] [address] [id number] [place] [id number] Feb, [facility] [place] [address] [id number] [place] [id number] Feb, [facility] [place] [address] [id number] [place] [id number] Feb, [facility] [place] [address] [id number] [place] [id number] Feb, [facility] [place] [address] [id number] [place] [id number] Feb, [facility] [place] [address] [id number] [place] [id number] Feb, [facility] [place] [address] [id number] [place] [id number] Feb, [facility] [place] [address] [id number] [place] [id number] Jan, [facility] [place] [address] [id number] [place] [id number] Jan, [facility] [place] [address] [id number] [place] [id number] Jan, [facility] [place] [facility] [id number] [place] [id number] Jan, Dental examination V72.2 [facility] [place] [address] [id number] [place] [id number] Jan, [facility] [place] [address] [id number] [place] [id number] Jan, [facility] [place] [address] [id number] [place] [id number] Jan, [facility] [place] [address] [id number] [place] [id number] Jan, [facility] [place] [address] [id number] [place] [id number] Jan, [facility] [place] [address] [id number] [place] [id number] Jan, [facility] [place] [address] [id number] [place] [id number] Jan, [facility] [place] [address] [id number] [place] [id number] Jan, [facility] [place] [address] [id number] [place] [id number] Jan, [facility] [place] [address] [id number] [place] [id number] Jan, [facility] [place] [address] [id number] [place] [id number] Jan, [facility] [place] [address] [id number] [place] [id number] Jan, [facility] [place] [address] [id number] [place] [id number] Jan, [facility] [place] [address] [id number] [place] [id number] Jan, [facility] [place] [address] [id number] [place] [id number] Jan, [facility] [place] [address] [id number] [place] [id number] Jan, [facility] [place] [address] [id number] [place] [id number] Jan, [facility] [place] [address] [id number] [place] [id number] Jan, [facility] [place] [address] [id number] [place] [id number] Jan, [facility] [place] [address] [id number] [place] [id number] Jan, [facility] [place] [address] [id number] [place] [id number] Jan, [facility] [place] [address] [id number] [place] [id number] Jan, [facility] [place] [address] [id number] [place] [id number] Jan, [facility] [place] [address] [id number] [place] [id number] Jan, [facility] [place] [address] [id number] [place] [id number] December, [facility] [place] [address] [id number] [place] [id number] December, [facility] [place] [address] [id number] [place] [id number] December, [facility] [place] [address] [id number] [place] [id number] December, [facility] [place] [address] [id number] [place] [id number] December, [facility] [place] [address] [id number] [place] [id number] December, [facility] [place] [address] [id number] [place] [id number] December, [facility] [place] [address] [id number] [place] [id number] December, [facility] [place] [address] [id number] [place] [id number] December, [facility] [place] [address] [id number] [place] [id number] December, [facility] [place] [address] [id number] [place] [id number] December, [facility] [place] [address] [id number] [place] [id number] December, [facility] [place] [address] [id number] [place] [id number] December, [facility] [place] [address] [id number] [place] [id number] December, [facility] [place] [address] [id number] [place] [id number] Nov, [facility] [place] [address] [id number] [place] [id number] Nov, [facility] [place] [address] [id number] [place] [id number] Nov, [facility] [place] [address] [id number] [place] [id number] Nov, [facility] [address] [facility] [id number] [address] [place] [address] Nov, [facility] [address] [facility] [id number] [address] [place] [address] Nov, [facility] [address] [facility] [id number] [address] [place] [address] Sep, [facility] [address] [facility] [id number] [address] [place] [address] Sep, [facility] [address] [facility] [id number] [address] [place] [address] Jul, [facility] [address] [facility] [id number] [address] [place] [address] Jul, [facility] [address] [facility] [id number] [address] [place] [address] Jul, [facility] [address] [facility] [id number] [address] [place] [address] Jul, [facility] [address] [id number] [address] [place] [address], [place] [address] Jul, [facility] [address] [id number] [address] [place] [address], [place] [address] Jul, [facility] [address] [id number] [address] [place] [address], [place] [address] Jun, [facility] [address] [id number] [address] [place] [address], [place] [address] Jun, [facility] [address] [id number] [address] [place] [address], [place] [address] Jun, [facility] [address] [id number] [address] [place] [address], [place] [address] Jun, [facility] [address] [id number] [address] [place] [address], [place] [address] May, [facility] [address] [id number] [address] [place] [address], [place] [address] May, [facility] [address] [id number] [address] [place] [address], [place] [address] Feb, [facility] [address] [id number] [address] [place] [address], [place] [address] Feb, [facility] [address] [id number] [address] [place] [address], [place] [address] Feb, [facility] [address] [id number] [address] [place] [address], [place] [address] Feb, [facility] [address] [id number] [address] [place] [address], [place] [address] Jan, [facility] [address] [id number] [address] [place] [address], [place] [address] Jan, [facility] [address] [id number] [address] [place] [address], [place] [address] Jan, [facility] [address] [id number] [address] [place] [address], [place] [address] Jan, [facility] [address] [id number] [address] [place] [address], [place] [address] December, [facility] [address] [id number] [address] [place] [address], [place] [address] December, [facility] [address] [id number] [address] [place] [address], [place] [address] December, [facility] [address] [id number] [address] [place] [address], [place] [address] December, [facility] [address] [id number] [address] [place] [address], [place] [address] December, [facility] [address] [id number] [address] [place] [address], [place] [address] December, [facility] [address] [id number] [address] [place] [address], [place] [address] December, [facility] [address] [id number] [address] [place] [address], [place] [address] December, [facility] [address] [id number] [address] [place] [address], [place] [address] December, [facility] [address] [id number] [address] [place] [address], [place] [address] December, [facility] [address] [id number] [address] [place] [address], [place] [address] December, [facility] [address] [id number] [address] [place] [address], [place] [address] December, [facility] [address] [id number] [address] [place] [address], [place] [address] December, [facility] [address] [id number] [address] [place] [address], [place] [address] December, [facility] [address] [id number] [address] [place] [address], [place] [address] December, [facility] [address] [id number] [facility] [place] [address] December, [facility] [address] [id number] [address] [place] [address], [place] [address] December, [facility] [address] [id number] [address] [place] [address], [place] [address] Nov, [facility] [address] [id number] [address] [place] [address], [place] [address] Nov, [facility] [address] [id number] [address] [place] [address], [place] [address] Nov, [facility] [address] [id number] [address] [place] [address], [place] [address] Nov, [facility] [address] [id number] [address] [place] [address], [place] [address] Nov, [facility] [address] [id number] [address] [place] [address], [place] [address] Nov, [facility] [address] [id number] [address] [place] [address], [place] [address] Nov, [facility] [address] [id number] [address] [place] [address], [place] [address] Nov, [facility] [address] [id number] [address] [place] [address], [place] [address] Nov, [facility] [address] [id number] [address] [place] [address], [place] [address] Nov, [facility] [address] [id number] [address] [place] [address], [place] [address] Nov, [facility] [address] [id number] [address] [place] [address], [place] [address] Nov, [facility] [address] [id number] [address] [place] [address], [place] [address] Nov, [facility] [address] [id number] [address] [place] [address], [place] [address] Nov, [facility] [address] [id number] [facility] [place] [address] Nov, [facility] [address] [id number] [address] [place] [address], [place] [address] Nov, [facility] [address] [id number] [facility] [place] [address] Oct, [facility] [address] [id number] [address] [place] [address], [place] [address] Oct, [facility] [address] [id number] [address] [place] [address], [place] [address] Oct, [facility] [address] [id number] [address] [place] [address], [place] [address] Oct, [facility] [address] [id number] [address] [place] [address], [place] [address] Oct, [facility] [address] [id number] [address] [place] [address], [place] [address] Oct, [facility] [address] [id number] [address] [place] [address], [place] [address] Oct, [facility] [address] [id number] [address] [place] [address], [place] [address] Oct, [facility] [address] [id number] [address] [place] [address], [place] [address] Sep, [facility] [address] [id number] [address] [place] [address], [place] [address] Sep, [facility] [address] [id number] [address] [place] [address], [place] [address] Sep, [facility] [address] [id number] [address] [place] [address], [place] [address] Sep, [facility] [address] [id number] [address] [place] [address], [place] [address] Sep, [facility] [address] [id number] [address] [place] [address], [place] [address] Sep, 2013 [facility] [address] [id number] [address] [place] [address], [place] [address] Sep, 2013 [facility] [address] [id number] [address] [place] [address], [place] [address] Sep, [facility] [address] [id number] [address] [place] [address], [place] [address] Sep, [facility] [address] [id number] [address] [place] [address], [place] [address] Sep, [facility] [address] [id number] [address] [place] [address], [place] [address] Aug, [facility] [address] [id number] [address] [place] [address], [place] [address] Aug, [facility] [address] [id number] [address] [place] [address], [place] [address] Jul, [facility] [address] [id number] [address] [place] [address], [place] [address] Jul, [facility] [address] [id number] [address] [place] [address], [place] [address] Jul, [facility] [address] [id number] [address] [place] [address], [place] [address] Jul, [facility] [address] [id number] [address] [place] [address], [place] [address] Jul, [facility] [address] [id number] [address] [place] [address], [place] [address] Jul, [facility] [address] [id number] [address] [place] [address], [place] [address] Jun, [facility] [address] [id number] [address] [place] [address] Jun, [facility] [address] [id number] [address] [place] [address], [place] [address] Jun, [facility] [address] [id number] [address] [place] [address], [place] [address] May, [facility] [address] [id number] [address] [place] [address], [place] [address] December, [facility] [address] [id number] [address] [place] [address], [place] [address] December, [facility] [address] [id number] [address] [place] [address], [place] [address] Jan, [facility] [address] [id number] [address] [place] [address], [place] [address] Jan, [facility] [address] [id number] [address] [place] [address], [place] [address] Jan, [facility] [address] [id number] [address] [place] [address], [place] [address] Jan, [facility] [address] [id number] [address] [place] [address], [place] [address] December, [facility] [address] [id number] [place] [id number] December, [facility] [address] [id number] [address] [place] [address], [place] [address] December, [facility] [address] [id number] [address] [place] [address], [place] [address] December, [facility] [address] [id number] [address] [place] [address], [place] [address] December, [facility] [address] [id number] [address] [place] [address], [place] [address] Oct, [facility] [facility] [address] [id number] [address] [place] [address], [place] [id number] Jul, [facility] [address] [id number] [address] [place] [address], [place] [id number] Jul, [facility] [address] [id number] [address] [place] [address] [place] [id number] Jun, IMMUNIZATIONS No Known Immunizations SOCIAL HISTORY [...]
--- OUTSIDE RECORDS SUMMARY | 2019-11-24 00:50 | XMS REPORT ---
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 Role Phone NELLY Guthrie Unavailable PROBLEMS Type Condition ICD9-CM Code IWS84-UA Code Onset Dates Condition S tatus SNOMED Code Problem Elevated blood pressure reading without diagnosi s of hypertension 796.2 Active 550417760 Problem Irregular menstrual cycle N92.6 Acti ve 87563177 Problem Tobacco abuse Z72.0 Active 098008 05 Problem Chronic gingivitis, plaque induced K05.10 Active 61022296 Problem Lower abdominal pain R10.30 Active 56586051 Problem Constipation, unspecified constipation type K59.00 Active 45841736 Problem Fatigue, unspecified type R53.83 Acti ve 10107828 Problem Anxiety F41.9 Active 09189832 ALLERGIES No Information ENCOUNTERS Encounter Location Date Diagnosis [facility] IN [facility] [address] [id number] [address] [place] [address] December, UTI symptoms R39.9 and Acute cystitis with hematuria N30.01 [facility] [id number] [place] [id number] Feb, Acute cystitis without hematuria N30.00 [facility] [address] [facility] [id number] [place] [id number] 13 Oct, 2017 [facility] [address] [id number] [address] [place] [id number] Oct, Dental examination Z01.20 [facility] [address] [facility] [id number] [address] [place] [address] Oct, Dental examination Z01.20 an d Chronic gingivitis, plaque induced K05.10 [facility] [address] [id number] [address] [place] [address] Oct, Dental examination Z01.20 [facility] [place] [address] [id number] [place] [id number] Jun, [facility] [place] [address] [id number] [place] [id number] May, [facility] [place] [address] [id number] [place] [id number] May, [facility] [place] [address] [id number] [place] [id number] Apr, [facility] [place] [address] [id number] [place] [id number] Apr, [facility] [place] [address] [id number] [place] [id number] Feb, Encounter for test, result unk nown Z32.00 [facility] [place] [address] [id number] [place] [id number] Feb, [facility] [place] [address] [id number] [place] [id number] Feb, [facility] [place] [address] [id number] [place] [id number] Feb, Encounter for test, result unk nown Z32.00 [facility] [place] [address] [id number] [place] [id number] Jan, [facility] [place] [address] [id number] [place] [id number] Jan, [facility] [place] [address] [id number] [place] [id number] Jan, [facility] [place] [address] [id number] [place] [id number] December, [facility] [place] [address] [id number] [place] [id number] December, [facility] [place] [address] [id number] [place] [id number] Nov, [facility] [place] [address] [id number] [place] [id number] Nov, [facility] [place] [address] [id number] [place] [id number] Nov, [facility] [place] [address] [id number] [place] [id number] Oct, [facility] [place] [address] [id number] [place] [id number] Oct, [facility] [place] [address] [id number] [place] [id number] Oct, [facility] [place] [address] [id number] [place] [id number] Oct, [facility] [place] [address] [id number] [place] [id number] Sep, [facility] [place] [address] [id number] [place] [id number] Sep, [facility] [place] [address] [id number] [place] [id number] Sep, [facility] [place] [address] [id number] [place] [id number] Sep, [facility] [place] [address] [id number] [place] [id number] Sep, [facility] [place] [address] [id number] [place] [id number] Aug, [facility] [place] [address] [id number] [place] [id number] Jul, [facility] [place] [address] [id number] [place] [id number] Jul, [facility] [place] [address] [id number] [place] [id number] Jun, [facility] [place] [address] [id number] [place] [id number] Jun, [facility] [place] [address] [id number] [place] [id number] Jun, [facility] [place] [address] [id number] [place] [id number] Jun, [facility] [place] [address] [id number] [place] [id number] Jun, [facility] [place] [address] [id number] [place] [id number] Jun, [facility] [place] [address] [id number] [place] [id number] May, [facility] [place] [address] [id number] [place] [id number] May, [facility] [place] [address] [id number] [place] [id number] May, [facility] [address] [facility] [id number] [address] [place] [address] Apr, Bronchitis J40 [facility] [place] [address] [id number] [place] [id number] Mar, [facility] [place] [address] [id number] [place] [id number] Feb, [facility] [place] [address] [id number] [place] [id number] Feb, [facility] [place] [address] [id number] [place] [id number] Feb, Sore throat J02.9 and Ear pain, right H9 2.01 [facility] [place] [address] [id number] [place] [id number] Jan, [facility] [place] [address] [id number] [place] [id number] Jan, Viral syndrome B34.9 ; Other seasonal al lergic rhinitis J30.2 and Post-nasal drip R09.82 [facility] [place] [address] [id number] [place] [id number] Jan, [facility] [place] [address] [id number] [place] [id number] Nov, [facility] [place] [address] [id number] [place] [id number] Oct, test positive Z32.01 [facility] [address] [facility] [id number] [address] [place] [address] Oct, [facility] [address] [id number] [address] [place] [address] Oct, [facility] [address] [address] Sep, Kidney stones N20.0 [facility] [id number] [place] [address] 18 Sep, 2015 [facility] [address] [address] Sep, Pelvic pain R10.2 ; Left low er quadrant pain R10.32 ; Vaginal discharge N89.8 ; Routine screening for STI (sexually transmitted infection) Z11.3 ; Unprotected sexual intercourse Z72.51 ; Kidney stone N20.0 ; History of dyspareunia in female Z87.42 and Screening for malignant neoplasm of cervix Z12.4 [facility] [address] [address] Jun, Constipation, unspecified co nstipation type K59.00 ; Lower abdominal pain R10.30 ; Irregular menstrual cycle N92.6 ; Anxiety F41.9 ; Fatigue, unspecified type R53.83 and Tobacco abuse Z72.0 [facility] [place] [address] [id number] [place] [id number] Jun, [facility] [place] [address] [id number] [place] [id number] Jun, Nausea R11.0 [facility] [place] [address] [id number] [place] [id number] May, Alopecia L65.9 [facility] [place] [address] [id number] [place] [id number] May, [facility] [place] [address] [id number] [place] [id number] Apr, [facility] [place] [address] [id number] [place] [id number] Mar, [facility] [place] [address] [id number] [place] [id number] Mar, [facility] [place] [address] [id number] [place] [address], [place] [id number] Mar, [facility] [address] [id number] [address] [place] [address] Mar, test negative V72. 41 [facility] [place] [address] [id number] [place] [id number] Mar, [facility] [place] [address] [id number] [place] [id number] Mar, [facility] [place] [address] [id number] [place] [id number] Feb, [facility] [place] [address] [id number] [place] [id number] Feb, [facility] [place] [address] [id number] [place] [id number] Feb, [facility] [place] [address] [id number] [place] [id number] Feb, [facility] [place] [address] [id number] [place] [id number] Feb, [facility] [place] [address] [id number] [place] [id number] Feb, [facility] [place] [address] [id number] [place] [id number] Feb, [facility] [place] [address] [id number] [place] [id number] Feb, [facility] [place] [address] [id number] [place] [id number] Feb, [facility] [place] [address] [id number] [place] [id number] Feb, [facility] [place] [address] [id number] [place] [id number] Feb, [facility] [place] [address] [id number] [place] [id number] Feb, [facility] [place] [address] [id number] [place] [id number] Jan, [facility] [place] [address] [id number] [place] [id number] Jan, [facility] [place] [address] [id number] [place] [id number] Jan, [facility] [place] [facility] [id number] [place] [id number] Jan, Dental examination V72.2 [facility] [place] [address] [id number] [place] [id number] Jan, [facility] [place] [address] [id number] [place] [id number] Jan, [facility] [place] [address] [id number] [place] [id number] Jan, [facility] [place] [address] [id number] [place] [id number] Jan, [facility] [place] [address] [id number] [place] [id number] Jan, [facility] [place] [address] [id number] [place] [id number] Jan, [facility] [place] [address] [id number] [place] [id number] Jan, [facility] [place] [address] [id number] [place] [id number] Jan, [facility] [place] [address] [id number] [place] [id number] Jan, [facility] [place] [address] [id number] [place] [id number] Jan, [facility] [place] [address] [id number] [place] [id number] Jan, [facility] [place] [address] [id number] [place] [id number] Jan, [facility] [place] [address] [id number] [place] [id number] Jan, [facility] [place] [address] [id number] [place] [id number] Jan, [facility] [place] [address] [id number] [place] [id number] Jan, [facility] [place] [address] [id number] [place] [id number] Jan, [facility] [place] [address] [id number] [place] [id number] Jan, [facility] [place] [address] [id number] [place] [id number] Jan, [facility] [place] [address] [id number] [place] [id number] Jan, [facility] [place] [address] [id number] [place] [id number] Jan, [facility] [place] [address] [id number] [place] [id number] Jan, [facility] [place] [address] [id number] [place] [id number] Jan, [facility] [place] [address] [id number] [place] [id number] Jan, [facility] [place] [address] [id number] [place] [id number] Jan, [facility] [place] [address] [id number] [place] [id number] December, [facility] [place] [address] [id number] [place] [id number] December, [facility] [place] [address] [id number] [place] [id number] December, [facility] [place] [address] [id number] [place] [id number] December, [facility] [place] [address] [id number] [place] [id number] December, [facility] [place] [address] [id number] [place] [id number] December, [facility] [place] [address] [id number] [place] [id number] December, [facility] [place] [address] [id number] [place] [id number] December, [facility] [place] [address] [id number] [place] [id number] December, [facility] [place] [address] [id number] [place] [id number] December, [facility] [place] [address] [id number] [place] [id number] December, [facility] [place] [address] [id number] [place] [id number] December, [facility] [place] [address] [id number] [place] [id number] December, [facility] [place] [address] [id number] [place] [id number] December, [facility] [place] [address] [id number] [place] [id number] Nov, [facility] [place] [address] [id number] [place] [id number] Nov, [facility] [place] [address] [id number] [place] [id number] Nov, [facility] [place] [address] [id number] [place] [id number] Nov, [facility] [address] [facility] [id number] [address] [place] [address] Nov, [facility] [address] [facility] [id number] [address] [place] [address] Nov, [facility] [address] [facility] [id number] [address] [place] [address] Sep, [facility] [address] [facility] [id number] [address] [place] [address] Sep, [facility] [address] [facility] [id number] [address] [place] [address] Jul, [facility] [address] [facility] [id number] [address] [place] [address] Jul, [facility] [address] [facility] [id number] [address] [place] [address] Jul, [facility] [address] [facility] [id number] [address] [place] [address] Jul, [facility] [address] [id number] [address] [place] [address], [place] [address] Jul, [facility] [address] [id number] [address] [place] [address], [place] [address] Jul, [facility] [address] [id number] [address] [place] [address], [place] [address] Jun, [facility] [address] [id number] [address] [place] [address], [place] [address] Jun, [facility] [address] [id number] [address] [place] [address], [place] [address] Jun, [facility] [address] [id number] [address] [place] [address], [place] [address] Jun, [facility] [address] [id number] [address] [place] [address], [place] [address] May, [facility] [address] [id number] [address] [place] [address], [place] [address] May, [facility] [address] [id number] [address] [place] [address], [place] [address] Feb, [facility] [address] [id number] [address] [place] [address], [place] [address] Feb, [facility] [address] [id number] [address] [place] [address], [place] [address] Feb, [facility] [address] [id number] [address] [place] [address], [place] [address] Feb, [facility] [address] [id number] [address] [place] [address], [place] [address] Jan, [facility] [address] [id number] [address] [place] [address], [place] [address] Jan, [facility] [address] [id number] [address] [place] [address], [place] [address] Jan, [facility] [address] [id number] [address] [place] [address], [place] [address] Jan, [facility] [address] [id number] [address] [place] [address], [place] [address] December, [facility] [address] [id number] [address] [place] [address], [place] [address] December, [facility] [address] [id number] [address] [place] [address], [place] [address] December, [facility] [address] [id number] [address] [place] [address], [place] [address] December, [facility] [address] [id number] [address] [place] [address], [place] [address] December, [facility] [address] [id number] [address] [place] [address], [place] [address] December, [facility] [address] [id number] [address] [place] [address], [place] [address] December, [facility] [address] [id number] [address] [place] [address], [place] [address] December, [facility] [address] [id number] [address] [place] [address], [place] [address] December, [facility] [address] [id number] [address] [place] [address], [place] [address] December, [facility] [address] [id number] [address] [place] [address], [place] [address] December, [facility] [address] [id number] [address] [place] [address], [place] [address] December, [facility] [address] [id number] [address] [place] [address], [place] [address] December, [facility] [address] [id number] [address] [place] [address], [place] [address] December, [facility] [address] [id number] [address] [place] [address], [place] [address] December, [facility] [address] [id number] [facility] [place] [address] December, [facility] [address] [id number] [address] [place] [address], [place] [address] December, [facility] [address] [id number] [address] [place] [address], [place] [address] Nov, [facility] [address] [id number] [address] [place] [address], [place] [address] Nov, [facility] [address] [id number] [address] [place] [address], [place] [address] Nov, [facility] [address] [id number] [address] [place] [address], [place] [address] Nov, [facility] [address] [id number] [address] [place] [address], [place] [address] Nov, [facility] [address] [id number] [address] [place] [address], [place] [address] Nov, [facility] [address] [id number] [address] [place] [address], [place] [address] Nov, [facility] [address] [id number] [address] [place] [address], [place] [address] Nov, [facility] [address] [id number] [address] [place] [address], [place] [address] Nov, [facility] [address] [id number] [address] [place] [address], [place] [address] Nov, [facility] [address] [id number] [address] [place] [address], [place] [address] Nov, [facility] [address] [id number] [address] [place] [address], [place] [address] Nov, [facility] [address] [id number] [address] [place] [address], [place] [address] Nov, [facility] [address] [id number] [address] [place] [address], [place] [address] Nov, [facility] [address] [id number] [facility] [place] [address] Nov, [facility] [address] [id number] [address] [place] [address], [place] [address] Nov, [facility] [address] [id number] [facility] [place] [address] Oct, [facility] [address] [id number] [address] [place] [address], [place] [address] Oct, [facility] [address] [id number] [address] [place] [address], [place] [address] Oct, [facility] [address] [id number] [address] [place] [address], [place] [address] Oct, [facility] [address] [id number] [address] [place] [address], [place] [address] Oct, [facility] [address] [id number] [address] [place] [address], [place] [address] Oct, [facility] [address] [id number] [address] [place] [address], [place] [address] Oct, [facility] [address] [id number] [address] [place] [address], [place] [address] Oct, [facility] [address] [id number] [address] [place] [address], [place] [address] Sep, [facility] [address] [id number] [address] [place] [address], [place] [address] Sep, [facility] [address] [id number] [address] [place] [address], [place] [address] Sep, [facility] [address] [id number] [address] [place] [address], [place] [address] Sep, [facility] [address] [id number] [address] [place] [address], [place] [address] Sep, [facility] [address] [id number] [address] [place] [address], [place] [address] Sep, 2013 [facility] [address] [id number] [address] [place] [address], [place] [address] Sep, 2013 [facility] [address] [id number] [address] [place] [address], [place] [address] Sep, [facility] [address] [id number] [address] [place] [address], [place] [address] Sep, [facility] [address] [id number] [address] [place] [address], [place] [address] Sep, [facility] [address] [id number] [address] [place] [address], [place] [address] Aug, [facility] [address] [id number] [address] [place] [address], [place] [address] Aug, [facility] [address] [id number] [address] [place] [address], [place] [address] Jul, [facility] [address] [id number] [address] [place] [address], [place] [address] Jul, [facility] [address] [id number] [address] [place] [address], [place] [address] Jul, [facility] [address] [id number] [address] [place] [address], [place] [address] Jul, [facility] [address] [id number] [address] [place] [address], [place] [address] Jul, [facility] [address] [id number] [address] [place] [address], [place] [address] Jul, [facility] [address] [id number] [address] [place] [address], [place] [address] Jun, [facility] [address] [id number] [address] [place] [address] Jun, [facility] [address] [id number] [address] [place] [address], [place] [address] Jun, [facility] [address] [id number] [address] [place] [address], [place] [address] May, [facility] [address] [id number] [address] [place] [address], [place] [address] December, [facility] [address] [id number] [address] [place] [address], [place] [address] December, [facility] [address] [id number] [address] [place] [address], [place] [address] Jan, [facility] [address] [id number] [address] [place] [address], [place] [address] Jan, [facility] [address] [id number] [address] [place] [address], [place] [address] Jan, [facility] [address] [id number] [address] [place] [address], [place] [address] Jan, [facility] [address] [id number] [address] [place], [place] [address], [place] [address] December, [facility] [address] [id number] [place] [id number] December, [facility] [address] [id number] [address] [place] [address], [place] [address] December, [facility] [address] [id number] [address] [place] [address], [place] [address] December, [facility] [address] [id number] [address] [place] [address], [place] [address] December, [facility] [address] [id number] [address] [place] [address], [place] [address] Oct, [facility] [address] [id number] [address] [place] [address], [place] [address] Jul, [facility] [address] [id number] [address] [place] [address], [place] [address] Jul, [facility] [address] [id number] [address] [place] [address] [place] [address] Jun, IMMUNIZATIONS No Known Immunizations SOCIAL HISTORY [...]
--- OUTSIDE RECORDS SUMMARY | 2019-11-24 00:50 | XMS REPORT ---
Author Author Vilma Guthrie Organization [facility] Address [address] [place] [address] Care Team Providers Care Explosive Specialist Name Role Phone ENLLY Guthrie Unavailable PROBLEMS Type Condition ICD9-CM Code TIX96-GN Code Onset Dates Condition S tatus SNOMED Code Problem Elevated blood pressure reading without diagnosi s of hypertension 796.2 Active 718564649 Problem Irregular menstrual cycle N92.6 Acti ve 50074187 Problem Tobacco abuse Z72.0 Active 481451 05 Problem Chronic gingivitis, plaque induced K05.10 Active 21940879 Problem Lower abdominal pain R10.30 Active 80188531 Problem Constipation, unspecified constipation type K59.00 Active 75079206 Problem Fatigue, unspecified type R53.83 Acti ve 11847055 Problem Anxiety F41.9 Active 70570958 ALLERGIES No Information ENCOUNTERS Encounter Location Date Diagnosis [facility] [address] [id number] [address] [place] [address] December, UTI symptoms R39.9 and Acute cystitis with hematuria N30.01 [facility] [id number] [place] [id number] Feb, Acute cystitis without hematuria N30.00 [facility] [address] [facility] [id number] [place] [id number] 13 Oct, 2017 [facility] [address] [id number] [address] [place] [id number] Oct, Dental examination Z01.20 [facility] [address] [facility] [id number] [address] [place] [id number] 08 Oct, 2017 Dental examination Z01.20 an d Chronic gingivitis, plaque induced K05.10 [facility] [address] [id number] [address] [place] [address] Oct, Dental examination Z01.20 [facility] [place] [address] [id number] [place] [id number] Jun, [facility] [place] [address] [id number] [place] [id number] May, [facility] [place] [address] [id number] [place] [id number] May, [facility] [place] [address] [id number] [place] [id number] Apr, [facility] [place] [address] [id number] [place] [id number] Apr, [facility] [place] [address] [id number] [place] [id number] Feb, Encounter for test, result unk nown Z32.00 [facility] [place] [address] [id number] [place] [id number] Feb, [facility] [place] [address] [id number] [place] [id number] Feb, [facility] [place] [address] [id number] [place] [id number] Feb, Encounter for test, result unk nown Z32.00 [facility] [place] [address] [id number] [place] [id number] Jan, [facility] [place] [address] [id number] [place] [id number] Jan, [facility] [place] [address] [id number] [place] [id number] Jan, [facility] [place] [address] [id number] [place] [id number] December, [facility] [place] [address] [id number] [place] [id number] December, [facility] [place] [address] [id number] [place] [id number] Nov, [facility] [place] [address] [id number] [place] [id number] Nov, [facility] [place] [address] [id number] [place] [id number] Nov, [facility] [place] [address] [id number] [place] [id number] Oct, [facility] [place] [address] [id number] [place] [id number] Oct, [facility] [place] [address] [id number] [place] [id number] Oct, [facility] [place] [address] [id number] [place] [id number] Oct, [facility] [place] [address] [id number] [place] [id number] Sep, [facility] [place] [address] [id number] [place] [id number] Sep, [facility] [place] [address] [id number] [place] [id number] Sep, [facility] [place] [address] [id number] [place] [id number] Sep, [facility] [place] [address] [id number] [place] [id number] Sep, [facility] [place] [address] [id number] [place] [id number] Aug, [facility] [place] [address] [id number] [place] [id number] Jul, [facility] [place] [address] [id number] [place] [id number] Jul, [facility] [place] [address] [id number] [place] [id number] Jun, [facility] [place] [address] [id number] [place] [id number] Jun, [facility] [place] [address] [id number] [place] [id number] Jun, [facility] [place] [address] [id number] [place] [id number] Jun, [facility] [place] [address] [id number] [place] [id number] Jun, [facility] [place] [address] [id number] [place] [id number] Jun, [facility] [place] [address] [id number] [place] [id number] May, [facility] [place] [address] [id number] [place] [id number] May, [facility] [place] [address] [id number] [place] [id number] May, [facility] [address] [facility] [id number] [address] [place] [address] Apr, Bronchitis J40 [facility] [place] [address] [id number] [place] [id number] Mar, [facility] [place] [address] [id number] [place] [id number] Feb, [facility] [place] [address] [id number] [place] [id number] Feb, [facility] [place] [address] [id number] [place] [id number] Feb, Sore throat J02.9 and Ear pain, right H9 2.01 [facility] [place] [address] [id number] [place] [id number] Jan, [facility] [place] [address] [id number] [place] [id number] Jan, Viral syndrome B34.9 ; Other seasonal al lergic rhinitis J30.2 and Post-nasal drip R09.82 [facility] [place] [address] [id number] [place] [id number] Jan, [facility] [place] [address] [id number] [place] [id number] Nov, [facility] [place] [address] [id number] [place] [id number] Oct, test positive Z32.01 [facility] [address] [facility] [id number] [address] [place] [address] Oct, [facility] [address] [id number] [address] [place] [address] Oct, [facility] [address] [address] Sep, Kidney stones N20.0 [facility] [id number] [place] [id number] 18 Sep, 2015 [facility] [address] [address] Sep, Pelvic pain R10.2 ; Left low er quadrant pain R10.32 ; Vaginal discharge N89.8 ; Routine screening for STI (sexually transmitted infection) Z11.3 ; Unprotected sexual intercourse Z72.51 ; Kidney stone N20.0 ; History of dyspareunia in female Z87.42 and Screening for malignant neoplasm of cervix Z12.4 [facility] [address] [address] Jun, Constipation, unspecified co nstipation type K59.00 ; Lower abdominal pain R10.30 ; Irregular menstrual cycle N92.6 ; Anxiety F41.9 ; Fatigue, unspecified type R53.83 and Tobacco abuse Z72.0 [facility] [place] [address] [id number] [place] [id number] Jun, [facility] [place] [address] [id number] [place] [id number] Jun, Nausea R11.0 [facility] [place] [address] [id number] [place] [id number] May, Alopecia L65.9 [facility] [place] [address] [id number] [place] [id number] May, [facility] [place] [address] [id number] [place] [id number] Apr, [facility] [place] [address] [id number] [place] [id number] Mar, [facility] [place] [address] [id number] [place] [id number] Mar, [facility] [place] [address] [id number] [place] [address], [place] [id number] Mar, [facility] [address] [id number] [address] Mar, test negative V72. 41 [facility] [place] [address] [id number] [place] [id number] Mar, [facility] [place] [address] [id number] [place] [id number] Mar, [facility] [place] [address] [id number] [place] [id number] Feb, [facility] [place] [address] [id number] [place] [id number] Feb, [facility] [place] [address] [id number] [place] [id number] Feb, [facility] [place] [address] [id number] [place] [id number] Feb, [facility] [place] [address] [id number] [place] [id number] Feb, [facility] [place] [address] [id number] [place] [id number] Feb, [facility] [place] [address] [id number] [place] [id number] Feb, [facility] [place] [address] [id number] [place] [id number] Feb, [facility] [place] [address] [id number] [place] [id number] Feb, [facility] [place] [address] [id number] [place] [id number] Feb, [facility] [place] [address] [id number] [place] [id number] Feb, [facility] [place] [address] [id number] [place] [id number] Feb, [facility] [place] [address] [id number] [place] [id number] Jan, [facility] [place] [address] [id number] [place] [id number] Jan, [facility] [place] [address] [id number] [place] [id number] Jan, [facility] [place] [place] [facility] [id number] [place] [id number] Jan, Dental examination V72.2 [facility] [place] [address] [id number] [place] [id number] Jan, [facility] [place] [address] [id number] [place] [id number] Jan, [facility] [place] [address] [id number] [place] [id number] Jan, [facility] [place] [address] [id number] [place] [id number] Jan, [facility] [place] [address] [id number] [place] [id number] Jan, [facility] [place] [address] [id number] [place] [id number] Jan, [facility] [place] [address] [id number] [place] [id number] Jan, [facility] [place] [address] [id number] [place] [id number] Jan, [facility] [place] [address] [id number] [place] [id number] Jan, [facility] [place] [address] [id number] [place] [id number] Jan, [facility] [place] [address] [id number] [place] [id number] Jan, [facility] [place] [address] [id number] [place] [id number] Jan, [facility] [place] [address] [id number] [place] [id number] Jan, [facility] [place] [address] [id number] [place] [id number] Jan, [facility] [place] [address] [id number] [place] [id number] Jan, [facility] [place] [address] [id number] [place] [id number] Jan, [facility] [place] [address] [id number] [place] [id number] Jan, [facility] [place] [address] [id number] [place] [id number] Jan, [facility] [place] [address] [id number] [place] [id number] Jan, [facility] [place] [address] [id number] [place] [id number] Jan, [facility] [place] [address] [id number] [place] [id number] Jan, [facility] [place] [address] [id number] [place] [id number] Jan, [facility] [place] [address] [id number] [place] [id number] Jan, [facility] [place] [address] [id number] [place] [id number] Jan, [facility] [place] [address] [id number] [place] [id number] December, [facility] [place] [address] [id number] [place] [id number] December, [facility] [place] [address] [id number] [place] [id number] December, [facility] [place] [address] [id number] [place] [id number] December, [facility] [place] [address] [id number] [place] [id number] December, [facility] [place] [address] [id number] [place] [id number] December, [facility] [place] [address] [id number] [place] [id number] December, [facility] [place] [address] [id number] [place] [id number] December, [facility] [place] [address] [id number] [place] [id number] December, [facility] [place] [address] [id number] [place] [id number] December, [facility] [place] [address] [id number] [place] [id number] December, [facility] [place] [address] [id number] [place] [id number] December, [facility] [place] [address] [id number] [place] [id number] December, [facility] [place] [address] [id number] [place] [id number] December, [facility] [place] [address] [id number] [place] [id number] Nov, [facility] [place] [address] [id number] [place] [id number] Nov, [facility] [place] [address] [id number] [place] [id number] Nov, [facility] [place] [address] [id number] [place] [id number] Nov, [facility] [address] [facility] [id number] [address] [place] [address] Nov, [facility] [address] [facility] [id number] [address] [place] [address] Nov, [facility] [address] [facility] [id number] [address] [place] [id number] Sep, [facility] [address] [facility] [id number] [address] [place] [id number] Sep, [facility] [address] [facility] [id number] [address] [place] [id number] Jul, [facility] [address] [facility] [id number] [address] [place] [address] Jul, [facility] [address] [facility] [id number] [address] [place] [address] Jul, [facility] [address] [facility] [id number] [address] [place] [id number] Jul, [facility] [address] [id number] [address] [place] [address], [place] [address] Jul, [facility] [address] [id number] [address] [place] [address], [place] [address] Jul, [facility] [address] [id number] [address] [place] [address], [place] [address] Jun, [facility] [address] [id number] [address] [place] [address], [place] [address] Jun, [facility] [address] [id number] [address] [place] [address], [place] [address] Jun, [facility] [address] [id number] [address] [place] [address], [place] [address] Jun, [facility] [address] [id number] [address] [place] [address], [place] [address] May, [facility] [address] [id number] [address] [place] [address], [place] [address] May, [facility] [address] [id number] [address] [place] [address], [place] [address] Feb, [facility] [address] [id number] [address] [place] [address], [place] [address] Feb, [facility] [address] [id number] [address] [place] [address], [place] [address] Feb, [facility] [address] [id number] [address] [place] [address], [place] [address] Feb, [facility] [address] [id number] [address] [place] [address], [place] [address] Jan, [facility] [address] [id number] [address] [place] [address], [place] [address] Jan, [facility] [address] [id number] [address] [place] [address], [place] [address] Jan, [facility] [address] [id number] [address] [place] [address], [place] [address] Jan, [facility] [address] [id number] [address] [place] [address], [place] [address] December, [facility] [address] [id number] [address] [place] [address], [place] [address] December, [facility] [address] [id number] [address] [place] [address], [place] [address] December, [facility] [address] [id number] [address] [place] [address], [place] [address] December, [facility] [address] [id number] [address] [place] [address], [place] [address] December, [facility] [address] [id number] [address] [place] [address], [place] [address] December, [facility] [address] [id number] [address] [place] [address], [place] [address] December, [facility] [address] [id number] [address] [place] [address], [place] [address] December, [facility] [address] [id number] [address] [place] [address], [place] [address] December, [facility] [address] [id number] [address] [place] [address], [place] [address] December, [facility] [address] [id number] [address] [place] [address], [place] [address] December, [facility] [address] [id number] [address] [place] [address], [place] [address] December, [facility] [address] [id number] [address] [place] [address], [place] [address] December, [facility] [address] [id number] [address] [place] [address], [place] [address] December, [facility] [address] [id number] [address] [place] [address], [place] [address] December, [facility] [address] [id number] [facility] [place] [address] December, [facility] [address] [id number] [address] [place] [address], [place] [address] December, [facility] [address] [id number] [address] [place] [address], [place] [address] Nov, [facility] [address] [id number] [address] [place] [address], [place] [address] Nov, [facility] [address] [id number] [address] [place] [address], [place] [address] Nov, [facility] [address] [id number] [address] [place] [address], [place] [address] Nov, [facility] [address] [id number] [address] [place] [address], [place] [address] Nov, [facility] [address] [id number] [address] [place] [address], [place] [address] Nov, [facility] [address] [id number] [address] [place] [address], [place] [address] Nov, [facility] [address] [id number] [address] [place] [address], [place] [address] Nov, [facility] [address] [id number] [address] [place] [address], [place] [address] Nov, [facility] [address] [id number] [address] [place] [address], [place] [address] Nov, [facility] [address] [id number] [address] [place] [address], [place] [address] Nov, [facility] [address] [id number] [address] [place] [address], [place] [address] Nov, [facility] [address] [id number] [address] [place] [address], [place] [address] Nov, [facility] [address] [id number] [address] [place] [address], [place] [address] Nov, [facility] [address] [id number] [facility] [place] [address] Nov, [facility] [address] [id number] [address] [place] [address], [place] [address] Nov, [facility] [address] [id number] [facility] [place] [address] Oct, [facility] [address] [id number] [address] [place] [address], [place] [address] Oct, [facility] [address] [id number] [address] [place] [address], [place] [address] Oct, [facility] [address] [id number] [address] [place] [address], [place] [address] Oct, [facility] [address] [id number] [address] [place] [address], [place] [address] Oct, [facility] [address] [id number] [address] [place] [address], [place] [address] Oct, [facility] [address] [id number] [address] [place] [address], [place] [address] Oct, [facility] [address] [id number] [address] [place] [address], [place] [address] Oct, [facility] [address] [id number] [address] [place] [address], [place] [address] Sep, [facility] [address] [id number] [address] [place] [address], [place] [address] Sep, [facility] [address] [id number] [address] [place] [address], [place] [address] Sep, [facility] [address] [id number] [address] [place] [address], [place] [address] Sep, [facility] [address] [id number] [address] [place] [address], [place] [address] Sep, [facility] [address] [id number] [address] [place] [address], [place] [address] Sep, 2013 [facility] [address] [id number] [address] [place] [address], [place] [address] Sep, 2013 [facility] [address] [id number] [address] [place] [address], [place] [address] Sep, [facility] [address] [id number] [address] [place] [address], [place] [address] Sep, [facility] [address] [id number] [address] [place] [address], [place] [address] Sep, [facility] [address] [id number] [address] [place] [address], [place] [address] Aug, [facility] [address] [id number] [address] [place] [address], [place] [address] Aug, [facility] [address] [id number] [address] [place] [address], [place] [address] Jul, [facility] [address] [id number] [address] [place] [address], [place] [address] Jul, [facility] [address] [id number] [address] [place] [address], [place] [address] Jul, [facility] [address] [id number] [address] [place] [address], [place] [address] Jul, [facility] [address] [id number] [address] [place] [address], [place] [address] Jul, [facility] [address] [id number] [address] [place] [address], [place] [address] Jul, [facility] [address] [id number] [address] [place] [address], [place] [address] Jun, [facility] [address] [id number] [address] [place] [id number] Jun, [facility] [address] [id number] [address] [place] [address], [place] [address] Jun, [facility] [address] [id number] [address] [place] [address], [place] [address] May, [facility] [address] [id number] [address] [place] [address], [place] [address] December, [facility] [address] [id number] [address] [place] [address], [place] [address] December, [facility] [address] [id number] [address] [place] [address], [place] [address] Jan, [facility] [address] [id number] [address] [place] [address], [place] [address] Jan, [facility] [address] [id number] [address] [place] [address], [place] [address] Jan, [facility] [address] [id number] [address] [place] [address], [place] [address] Jan, [facility] [address] [id number] [address] [place] [address], [place] [address] December, [facility] [address] [id number] [id number] December, [facility] [address] [id number] [address] [place] [address], [place] [address] December, [facility] [address] [id number] [address] [place] [address], [place] [id number] December, [facility] [address] [id number] [address] [place] [address], [place] [id number] December, [facility] [address] [id number] [address] [place] [address], [place] [id number] Oct, [facility] [address] [id number] [address] [place] [address], [place] [id number] Jul, [facility] [address] [id number] [address] [place] [address], [place] [id number] Jul, [facility] [address] [id number] [address] [place] [address] [place] [id number] Jun, IMMUNIZATIONS No Known Immunizations SOCIAL HISTORY [...]
--- OUTSIDE RECORDS SUMMARY | 2019-11-24 00:50 | XMS REPORT ---
Author Author Vilma Louis Doctor Organization [facility] Address Unknown Phone Unavailable Care Team Providers Care Hearing Examiner Name Role Phone Migration, Doctor Unavailable Unavailable PROBLEMS Type Condition ICD9-CM Code MKA15-PX Code Onset Dates Condition S tatus SNOMED Code Problem Elevated blood pressure reading without diagnosi s of hypertension 796.2 Active 085493902 Problem Irregular menstrual cycle N92.6 Acti ve 02138931 Problem Tobacco abuse Z72.0 Active 376867 05 Problem Chronic gingivitis, plaque induced K05.10 Active 97571429 Problem Lower abdominal pain R10.30 Active 79961140 Problem Constipation, unspecified constipation type K59.00 Active 54807798 Problem Fatigue, unspecified type R53.83 Acti ve 68217706 Problem Anxiety F41.9 Active 70975205 ALLERGIES No Information ENCOUNTERS Encounter Location Date Diagnosis [facility] WALK IN [facility] [address] [facility] [id number] [address] [place] [address] December, UTI symptoms R39.9 and Acute cystitis with hematuria N30.01 [facility] [address] [facility] [id number] [place] [id number] 03 Feb, 2018 Acute cystitis without hematuria N30.00 [facility] [id number] [place] [id number] 13 Oct, 2017 [facility] [address] [id number] [address] [place] [id number] Oct, Dental examination Z01.20 [facility] [address] [facility] [id number] [address] [place] [id number] 08 Oct, 2017 Dental examination Z01.20 an d Chronic gingivitis, plaque induced K05.10 [facility] [address] [facility] [id number] [address] [place] [address] Oct, Dental examination Z01.20 [facility] [address] [id number] [place] [id number] Jun, [facility] [place] [address] [id number] [place] [id number] May, [facility] [place] [address] [id number] [place] [id number] May, [facility] [place] [address] [id number] [place] [id number] Apr, [facility] [place] [address] [id number] [place] [id number] Apr, [facility] [place] [address] [id number] [place] [id number] Feb, Encounter for test, result unk nown Z32.00 [facility] [place] [address] [id number] [place] [id number] Feb, [facility] [place] [address] [id number] [place] [id number] Feb, [facility] [place] [address] [id number] [place] [id number] Feb, Encounter for test, result unk nown Z32.00 [facility] [place] [address] [id number] [place] [id number] Jan, [facility] [place] [address] [id number] [place] [id number] Jan, [facility] [place] [address] [id number] [place] [id number] Jan, [facility] [place] [address] [id number] [place] [id number] December, [facility] [place] [address] [id number] [place] [id number] December, [facility] [place] [address] [id number] [place] [id number] Nov, [facility] [place] [address] [id number] [place] [id number] Nov, [facility] [place] [address] [id number] [place] [id number] Nov, [facility] [place] [address] [id number] [place] [id number] Oct, [facility] [place] [address] [id number] [place] [id number] Oct, [facility] [place] [address] [id number] [place] [id number] Oct, [facility] [place] [address] [id number] [place] [id number] Oct, [facility] [place] [address] [id number] [place] [id number] Sep, [facility] [place] [address] [id number] [place] [id number] Sep, [facility] [place] [address] [id number] [place] [id number] Sep, [facility] [place] [address] [id number] [place] [id number] Sep, [facility] [place] [address] [id number] [place] [id number] Sep, [facility] [place] [address] [id number] [place] [id number] Aug, [facility] [place] [address] [id number] [place] [id number] Jul, [facility] [place] [address] [id number] [place] [id number] Jul, [facility] [place] [address] [id number] [place] [id number] Jun, [facility] [place] [address] [id number] [place] [id number] Jun, [facility] [place] [address] [id number] [place] [id number] Jun, [facility] [place] [address] [id number] [place] [id number] Jun, [facility] [place] [address] [id number] [place] [id number] Jun, [facility] [place] [address] [id number] [place] [id number] Jun, [facility] [place] [address] [id number] [place] [id number] May, [facility] [place] [address] [id number] [place] [id number] May, [facility] [place] [address] [id number] [place] [id number] May, [facility] [address] [facility] [id number] [address] [place] [address] Apr, Bronchitis J40 [facility] [place] [address] [id number] [place] [id number] Mar, [facility] [place] [address] [id number] [place] [id number] Feb, [facility] [place] [address] [id number] [place] [id number] Feb, [facility] [place] [address] [id number] [place] [id number] Feb, Sore throat J02.9 and Ear pain, right H9 2.01 [facility] [place] [address] [id number] [place] [id number] Jan, [facility] [place] [address] [id number] [place] [id number] Jan, Viral syndrome B34.9 ; Other seasonal al lergic rhinitis J30.2 and Post-nasal drip R09.82 [facility] [place] [address] [id number] [place] [id number] Jan, [facility] [place] [address] [id number] [place] [id number] Nov, [facility] [place] [address] [id number] [place] [id number] Oct, test positive Z32.01 [facility] [address] [facility] [id number] [address] [place] [address] Oct, [facility] [address] [id number] [address] [place] [address] Oct, [facility] [address] [id number] [address] [place] [address] 19 Sep, 2015 Kidney stones N20.0 [facility] [address] [address] 18 Sep, 2015 [facility] [address] [address] 11 Sep, 2015 Pelvic pain R10.2 ; Left low er quadrant pain R10.32 ; Vaginal discharge N89.8 ; Routine screening for STI (sexually transmitted infection) Z11.3 ; Unprotected sexual intercourse Z72.51 ; Kidney stone N20.0 ; History of dyspareunia in female Z87.42 and Screening for malignant neoplasm of cervix Z12.4 [place] [address] [address] Jun, Constipation, unspecified co nstipation type K59.00 ; Lower abdominal pain R10.30 ; Irregular menstrual cycle N92.6 ; Anxiety F41.9 ; Fatigue, unspecified type R53.83 and Tobacco abuse Z72.0 [facility] [place] [address] [id number] [place] [id number] Jun, [facility] [place] [address] [id number] [place] [id number] Jun, Nausea R11.0 [facility] [place] [address] [id number] [place] [id number] May, Alopecia L65.9 [facility] [place] [address] [id number] [place] [id number] May, [facility] [place] [address] [id number] [place] [id number] Apr, [facility] [place] [address] [id number] [place] [id number] Mar, [facility] [place] [address] [id number] [place] [id number] Mar, [facility] [place] [address] [id number] [place] [id number] Mar, [facility] [address] [id number] [address] [place] [address] Mar, test negative V72. 41 [facility] [place] [address] [id number] [place] [id number] Mar, [facility] [place] [address] [id number] [place] [id number] Mar, [facility] [place] [address] [id number] [place] [id number] Feb, [facility] [place] [address] [id number] [place] [id number] Feb, [facility] [place] [address] [id number] [place] [id number] Feb, [facility] [place] [address] [id number] [place] [id number] Feb, [facility] [place] [address] [id number] [place] [id number] Feb, [facility] [place] [address] [id number] [place] [id number] Feb, [facility] [place] [address] [id number] [place] [id number] Feb, [facility] [place] [address] [id number] [place] [id number] Feb, [facility] [place] [address] [id number] [place] [id number] Feb, [facility] [place] [address] [id number] [place] [id number] Feb, [facility] [place] [address] [id number] [place] [id number] Feb, [facility] [place] [address] [id number] [place] [id number] Feb, [facility] [place] [address] [id number] [place] [id number] Jan, [facility] [place] [address] [id number] [place] [id number] Jan, [facility] [place] [address] [id number] [place] [id number] Jan, [facility] [id number] [place] [id number] Jan, Dental examination V72.2 [facility] [place] [address] [id number] [place] [id number] Jan, [facility] [place] [address] [id number] [place] [id number] Jan, [facility] [place] [address] [id number] [place] [id number] Jan, [facility] [place] [address] [id number] [place] [id number] Jan, [facility] [place] [address] [id number] [place] [id number] Jan, [facility] [place] [address] [id number] [place] [id number] Jan, [facility] [place] [address] [id number] [place] [id number] Jan, [facility] [place] [address] [id number] [place] [id number] Jan, [facility] [place] [address] [id number] [place] [id number] Jan, [facility] [place] [address] [id number] [place] [id number] Jan, [facility] [place] [address] [id number] [place] [id number] Jan, [facility] [place] [address] [id number] [place] [id number] Jan, [facility] [place] [address] [id number] [place] [id number] Jan, [facility] [place] [address] [id number] [place] [id number] Jan, [facility] [place] [address] [id number] [place] [id number] Jan, [facility] [place] [address] [id number] [place] [id number] Jan, [facility] [place] [address] [id number] [place] [id number] Jan, [facility] [place] [address] [id number] [place] [id number] Jan, [facility] [place] [address] [id number] [place] [id number] Jan, [facility] [place] [address] [id number] [place] [id number] Jan, [facility] [place] [address] [id number] [place] [id number] Jan, [facility] [place] [address] [id number] [place] [id number] Jan, [facility] [place] [address] [id number] [place] [id number] Jan, [facility] [place] [address] [id number] [place] [id number] Jan, [facility] [place] [address] [id number] [place] [id number] December, [facility] [place] [address] [id number] [place] [id number] December, [facility] [place] [address] [id number] [place] [id number] December, [facility] [place] [address] [id number] [place] [id number] December, [facility] [place] [address] [id number] [place] [id number] December, [facility] [place] [address] [id number] [place] [id number] December, [facility] [place] [address] [id number] [place] [id number] December, [facility] [place] [address] [id number] [place] [id number] December, [facility] [place] [address] [id number] [place] [id number] December, [facility] [place] [address] [id number] [place] [id number] December, [facility] [place] [address] [id number] [place] [id number] December, [facility] [place] [address] [id number] [place] [id number] December, [facility] [place] [address] [id number] [place] [id number] December, [facility] [place] [address] [id number] [place] [id number] December, [facility] [place] [address] [id number] [place] [id number] Nov, [facility] [place] [address] [id number] [place] [id number] Nov, [facility] [place] [address] [id number] [place] [id number] Nov, [facility] [place] [address] [id number] [place] [id number] Nov, [facility] [address] [facility] [id number] [address] [place] [id number] Nov, [facility] [address] [facility] [id number] [address] [place] [id number] Nov, [facility] [address] [facility] [id number] [address] [place] [address] Sep, [facility] [address] [facility] [id number] [address] [place] [id number] Sep, [facility] [address] [facility] [id number] [address] [place] [id number] Jul, [facility] [address] [facility] [id number] [address] [place] [id number] Jul, [facility] [address] [facility] [id number] [address] [place] [id number] Jul, [facility] [address] [facility] [id number] [address] [place] [id number] Jul, [facility] [address] [facility] [id number] [address] [place] [id number] Jul, [facility] [address] [id number] [address] [place] [address], [place] [address] Jul, [facility] [address] [id number] [address] [place] [address], [place] [address] Jun, [facility] [address] [id number] [address] [place] [address], [place] [address] Jun, [facility] [address] [id number] [address] [place] [address], [place] [address] Jun, [facility] [address] [id number] [address] [place] [address], [place] [address] Jun, [facility] [address] [id number] [address] [place] [address], [place] [address] May, [facility] [address] [id number] [address] [place] [address], [place] [address] May, [facility] [address] [id number] [address] [place] [address], [place] [address] Feb, [facility] [address] [id number] [address] [place] [address], [place] [address] Feb, [facility] [address] [id number] [address] [place] [address], [place] [address] Feb, [facility] [address] [id number] [address] [place] [address], [place] [address] Feb, [facility] [address] [id number] [address] [place] [address], [place] [address] Jan, [facility] [address] [id number] [address] [place] [address], [place] [address] Jan, [facility] [address] [id number] [address] [place] [address], [place] [address] Jan, [facility] [address] [id number] [address] [place] [address], [place] [address] Jan, [facility] [address] [id number] [address] [place] [address], [place] [address] December, [facility] [address] [id number] [facility] [place] [address] December, [facility] [address] [id number] [address] [place] [address], [place] [address] December, [facility] [address] [id number] [address] [place] [address], [place] [address] December, [facility] [address] [id number] [address] [place] [address], [place] [address] December, [facility] [address] [id number] [address] [place] [address], [place] [address] December, [facility] [address] [id number] [address] [place] [address], [place] [address] December, [facility] [address] [id number] [address] [place] [address], [place] [address] December, [facility] [address] [id number] [address] [place] [address], [place] [address] December, [facility] [address] [id number] [address] [place] [address], [place] [address] December, [facility] [address] [id number] [address] [place] [address], [place] [address] December, [facility] [address] [id number] [address] [place] [address], [place] [address] December, [facility] [address] [id number] [address] [place] [address], [place] [address] December, [facility] [address] [id number] [address] [place] [address], [place] [address] December, [facility] [address] [id number] [address] [place] [address], [place] [address] December, [facility] [address] [id number] [address] [place] [address], [place] [address] December, [facility] [address] [id number] [facility] [place] [address] December, [facility] [address] [id number] [address] [place] [address], [place] [address] Nov, [facility] [address] [id number] [address] [place] [address], [place] [address] Nov, [facility] [address] [id number] [address] [place] [address], [place] [address] Nov, [facility] [address] [id number] [address] [place] [address], [place] [address] Nov, [facility] [address] [id number] [address] [place] [address], [place] [address] Nov, [facility] [address] [id number] [address] [place] [address], [place] [address] Nov, [facility] [address] [id number] [address] [place] [address], [place] [address] Nov, [facility] [address] [id number] [address] [place] [address], [place] [address] Nov, [facility] [address] [id number] [address] [place] [address], [place] [address] Nov, [facility] [address] [id number] [address] [place] [address], [place] [address] Nov, [facility] [address] [id number] [address] [place] [address], [place] [address] Nov, [facility] [address] [id number] [address] [place] [address], [place] [address] Nov, [facility] [address] [id number] [address] [place] [address], [place] [address] Nov, [facility] [address] [id number] [address] [place] [address], [place] [address] Nov, [facility] [address] [id number] [address] [place] [address], [place] [address] Nov, [facility] [address] [id number] [address] [place] [address] Nov, [facility] [address] [id number] [address] [place] [address], [place] [address] Oct, [facility] [address] [id number] [address] [place] [address] Oct, [facility] [address] [id number] [address] [place] [address], [place] [address] Oct, [facility] [address] [id number] [address] [place] [address], [place] [address] Oct, [facility] [address] [id number] [address] [place] [address], [place] [address] Oct, [facility] [address] [id number] [address] [place] [address], [place] [address] Oct, [facility] [address] [id number] [address] [place] [address], [place] [address] Oct, [facility] [address] [id number] [address] [place] [address], [place] [address] Oct, [facility] [address] [id number] [address] [place] [address], [place] [address] Sep, [facility] [address] [id number] [address] [place] [address], [place] [address] Sep, [facility] [address] [id number] [address] [place] [address], [place] [address] Sep, [facility] [address] [id number] [address] [place] [address], [place] [address] Sep, [facility] [address] [id number] [address] [place] [address], [place] [address] Sep, [facility] [address] [id number] [address] [place] [address], [place] [address] Sep, [facility] [address] [id number] [address] [place] [address], [place] [address] Sep, [facility] [address] [id number] [address] [place] [address], [place] [address] Sep, [facility] [address] [id number] [address] [place] [address], [place] [address] Sep, [facility] [address] [id number] [address] [place] [address], [place] [address] Sep, [facility] [address] [id number] [address] [place] [address], [place] [address] Aug, [facility] [address] [id number] [address] [place] [address], [place] [address] Aug, [facility] [address] [id number] [address] [place] [address], [place] [address] Jul, [facility] [address] [id number] [address] [place] [address], [place] [address] Jul, [facility] [address] [id number] [address] [place] [address], [place] [address] Jul, [facility] [address] [id number] [address] [place] [address], [place] [address] Jul, [facility] [address] [id number] [address] [place] [address], [place] [address] Jul, [facility] [address] [id number] [address] [place] [address], [place] [address] Jul, [facility] [address] [id number] [address] [place] [address], [place] [address] Jun, [facility] [address] [id number] [address] [place] [address], [place] [address] Jun, [facility] [address] [id number] [address] [place] [address], [place] [address] Jun, [facility] [address] [id number] [address] [address] May, [facility] [address] [id number] [address] [place] [id number] December, [facility] [address] [id number] [address] [place] [id number] December, [facility] [address] [id number] [address] [place] [id number] Jan, [facility] [address] [id number] [address] [place] [address] Jan, [facility] [address] [id number] [address] [place] [id number] Jan, [facility] [address] [id number] [address] [place] [id number] Jan, [facility] [address] [id number] [address] [place] [id number] December, [address] [id number] [place] [id number] December, [facility] [address] [id number] [address] [place] [id number] December, [facility] [address] [id number] [address] [place] [id number] December, [facility] [address] [id number] 17 [place] [id number] December, [facility] [address] [id number] [address] [place] [id number] Oct, [facility] [address] [id number] [address] [place] [id number] Jul, [facility] [address] [id number] [address] [place] [id number] Jul, [facility] [address] [id number] [address] [place] [id number] Jun, IMMUNIZATIONS No Known Immunizations SOCIAL HISTORY Never Assessed REASON FOR VISIT PLAN OF CARE VITAL SIGNS MEDICATIONS No Known Medications RESULTS No Results PROCEDURES Procedure Date Ordered Result Body Site URINE TEST Jun 19, 2014 INSTRUCTIONS MEDICATIONS ADMINISTERED No Known Medications [...]
--- OUTSIDE RECORDS SUMMARY | 2019-11-24 00:50 | XMS REPORT ---
Author Author Vilma Guthrie Organization [facility] Address [address] [place] [address] Care Team Providers Care Loader Name Role Phone NELLY Guthrie Unavailable PROBLEMS Type Condition ICD9-CM Code HEO30-PU Code Onset Dates Condition S tatus SNOMED Code Problem Elevated blood pressure reading without diagnosi s of hypertension 796.2 Active 205250191 Problem Irregular menstrual cycle N92.6 Acti ve 39853542 Problem Tobacco abuse Z72.0 Active 407980 05 Problem Chronic gingivitis, plaque induced K05.10 Active 40997663 Problem Lower abdominal pain R10.30 Active 75564105 Problem Constipation, unspecified constipation type K59.00 Active 53424783 Problem Fatigue, unspecified type R53.83 Acti ve 41249540 Problem Anxiety F41.9 Active 70597042 ALLERGIES No Information ENCOUNTERS Encounter Location Date Diagnosis [facility] [address] [id number] [address] [place] [address] December, UTI symptoms R39.9 and Acute cystitis with hematuria N30.01 [facility] [id number] [place] [id number] Feb, Acute cystitis without hematuria N30.00 [facility] [address] [facility] [id number] [place] [id number] 13 Oct, 2017 [facility] [address] [id number] [address] [place] [id number] Oct, Dental examination Z01.20 [facility] [address] [facility] [id number] [address] [place] [id number] 08 Oct, 2017 Dental examination Z01.20 an d Chronic gingivitis, plaque induced K05.10 [facility] [address] [id number] [address] [place] [address] Oct, Dental examination Z01.20 [facility] [place] [address] [id number] [place] [id number] Jun, [facility] [place] [address] [id number] [place] [id number] May, [facility] [place] [address] [id number] [place] [id number] May, [facility] [place] [address] [id number] [place] [id number] Apr, [facility] [place] [address] [id number] [place] [id number] Apr, [facility] [place] [address] [id number] [place] [id number] Feb, Encounter for test, result unk nown Z32.00 [facility] [place] [address] [id number] [place] [id number] Feb, [facility] [place] [address] [id number] [place] [id number] Feb, [facility] [place] [address] [id number] [place] [id number] Feb, Encounter for test, result unk nown Z32.00 [facility] [place] [address] [id number] [place] [id number] Jan, [facility] [place] [address] [id number] [place] [id number] Jan, [facility] [place] [address] [id number] [place] [id number] Jan, [facility] [place] [address] [id number] [place] [id number] December, [facility] [place] [address] [id number] [place] [id number] December, [facility] [place] [address] [id number] [place] [id number] Nov, [facility] [place] [address] [id number] [place] [id number] Nov, [facility] [place] [address] [id number] [place] [id number] Nov, [facility] [place] [address] [id number] [place] [id number] Oct, [facility] [place] [address] [id number] [place] [id number] Oct, [facility] [place] [address] [id number] [place] [id number] Oct, [facility] [place] [address] [id number] [place] [id number] Oct, [facility] [place] [address] [id number] [place] [id number] Sep, [facility] [place] [address] [id number] [place] [id number] Sep, [facility] [place] [address] [id number] [place] [id number] Sep, [facility] [place] [address] [id number] [place] [id number] Sep, [facility] [place] [address] [id number] [place] [id number] Sep, [facility] [place] [address] [id number] [place] [id number] Aug, [facility] [place] [address] [id number] [place] [id number] Jul, [facility] [place] [address] [id number] [place] [id number] Jul, [facility] [place] [address] [id number] [place] [id number] Jun, [facility] [place] [address] [id number] [place] [id number] Jun, [facility] [place] [address] [id number] [place] [id number] Jun, [facility] [place] [address] [id number] [place] [id number] Jun, [facility] [place] [address] [id number] [place] [id number] Jun, [facility] [place] [address] [id number] [place] [id number] Jun, [facility] [place] [address] [id number] [place] [id number] May, [facility] [place] [address] [id number] [place] [id number] May, [facility] [place] [address] [id number] [place] [id number] May, [facility] [address] [facility] [id number] [address] [place] [phone] Apr, Bronchitis J40 [facility] [place] [address] [id number] [place] [id number] Mar, [facility] [place] [address] [id number] [place] [id number] Feb, [facility] [place] [address] [id number] [place] [id number] Feb, [facility] [place] [address] [id number] [place] [id number] Feb, Sore throat J02.9 and Ear pain, right H9 2.01 [facility] [place] [address] [id number] [place] [id number] Jan, [facility] [place] [address] [id number] [place] [id number] Jan, Viral syndrome B34.9 ; Other seasonal al lergic rhinitis J30.2 and Post-nasal drip R09.82 [facility] [place] [address] [id number] [place] [id number] Jan, [facility] [place] [address] [id number] [place] [id number] Nov, [facility] [place] [address] [id number] [place] [id number] Oct, test positive Z32.01 [facility] [address] [facility] [id number] [address] [place] [id number] Oct, [facility] [address] [id number] [address] [place] [address] Oct, [facility] [address] [address] Sep, Kidney stones N20.0 [facility] [id number] [place] [id number] 18 Sep, 2015 [facility] [address] [address] Sep, Pelvic pain R10.2 ; Left low er quadrant pain R10.32 ; Vaginal discharge N89.8 ; Routine screening for STI (sexually transmitted infection) Z11.3 ; Unprotected sexual intercourse Z72.51 ; Kidney stone N20.0 ; History of dyspareunia in female Z87.42 and Screening for malignant neoplasm of cervix Z12.4 [facility] [address] [id number] Jun, Constipation, unspecified co nstipation type K59.00 ; Lower abdominal pain R10.30 ; Irregular menstrual cycle N92.6 ; Anxiety F41.9 ; Fatigue, unspecified type R53.83 and Tobacco abuse Z72.0 [facility] [place] [address] [id number] [place] [id number] Jun, [facility] [place] [address] [id number] [place] [id number] Jun, Nausea R11.0 [facility] [place] [address] [id number] [place] [id number] May, Alopecia L65.9 [facility] [place] [address] [id number] [place] [id number] May, [facility] [place] [address] [id number] [place] [id number] Apr, [facility] [place] [address] [id number] [place] [id number] Mar, [facility] [place] [address] [id number] [place] [id number] Mar, [facility] [place] [address] [id number] [place] [address], [place] [id number] Mar, [facility] [address] [id number] [address] Mar, test negative V72. 41 [facility] [place] [address] [id number] [place] [id number] Mar, [facility] [place] [address] [id number] [place] [id number] Mar, [facility] [place] [address] [id number] [place] [id number] Feb, [facility] [place] [address] [id number] [place] [id number] Feb, [facility] [place] [address] [id number] [place] [id number] Feb, [facility] [place] [address] [id number] [place] [id number] Feb, [facility] [place] [address] [id number] [place] [id number] Feb, [facility] [place] [address] [id number] [place] [id number] Feb, [facility] [place] [address] [id number] [place] [id number] Feb, [facility] [place] [address] [id number] [place] [id number] Feb, [facility] [place] [address] [id number] [place] [id number] Feb, [facility] [place] [address] [id number] [place] [id number] Feb, [facility] [place] [address] [id number] [place] [id number] Feb, [facility] [place] [address] [id number] [place] [id number] Feb, [facility] [place] [address] [id number] [place] [id number] Jan, [facility] [place] [address] [id number] [place] [id number] Jan, [facility] [place] [address] [id number] [place] [id number] Jan, [facility] [place] [facility] [id number] [place] [id number] Jan, Dental examination V72.2 [facility] [place] [address] [id number] [place] [id number] Jan, [facility] [place] [address] [id number] [place] [id number] Jan, [facility] [place] [address] [id number] [place] [id number] Jan, [facility] [place] [address] [id number] [place] [id number] Jan, [facility] [place] [address] [id number] [place] [id number] Jan, [facility] [place] [address] [id number] [place] [id number] Jan, [facility] [place] [address] [id number] [place] [id number] Jan, [facility] [place] [address] [id number] [place] [id number] Jan, [facility] [place] [address] [id number] [place] [id number] Jan, [facility] [place] [address] [id number] [place] [id number] Jan, [facility] [place] [address] [id number] [place] [id number] Jan, [facility] [place] [address] [id number] [place] [id number] Jan, [facility] [place] [address] [id number] [place] [id number] Jan, [facility] [place] [address] [id number] [place] [id number] Jan, [facility] [place] [address] [id number] [place] [id number] Jan, [facility] [place] [address] [id number] [place] [id number] Jan, [facility] [place] [address] [id number] [place] [id number] Jan, [facility] [place] [address] [id number] [place] [id number] Jan, [facility] [place] [address] [id number] [place] [id number] Jan, [facility] [place] [address] [id number] [place] [id number] Jan, [facility] [place] [address] [id number] [place] [id number] Jan, [facility] [place] [address] [id number] [place] [id number] Jan, [facility] [place] [address] [id number] [place] [id number] Jan, [facility] [place] [address] [id number] [place] [id number] Jan, [facility] [place] [address] [id number] [place] [id number] December, [facility] [place] [address] [id number] [place] [id number] December, [facility] [place] [address] [id number] [place] [id number] December, [facility] [place] [address] [id number] [place] [id number] December, [facility] [place] [address] [id number] [place] [id number] December, [facility] [place] [address] [id number] [place] [id number] December, [facility] [place] [address] [id number] [place] [id number] December, [facility] [place] [address] [id number] [place] [id number] December, [facility] [place] [address] [id number] [place] [id number] December, [facility] [place] [address] [id number] [place] [id number] December, [facility] [place] [address] [id number] [place] [id number] December, [facility] [place] [address] [id number] [place] [id number] December, [facility] [place] [address] [id number] [place] [id number] December, [facility] [place] [address] [id number] [place] [id number] December, [facility] [place] [address] [id number] [place] [id number] Nov, [facility] [place] [address] [id number] [place] [id number] Nov, [facility] [place] [address] [id number] [place] [id number] Nov, [facility] [place] [address] [id number] [place] [id number] Nov, [facility] [address] [facility] [id number] [address] [place] [address] Nov, [facility] [address] [facility] [id number] [address] [place] [address] Nov, [facility] [address] [facility] [id number] [address] [place] [address] Sep, [facility] [address] [facility] [id number] [address] [place] [address] Sep, [facility] [address] [facility] [id number] [address] [place] [address] Jul, [facility] [address] [facility] [id number] [address] [place] [address] Jul, [facility] [address] [facility] [id number] [address] [place] [address] Jul, [facility] [address] [facility] [id number] [address] [place] [phone] Jul, [facility] [address] [id number] [address] [place] [address], [place] [address] Jul, [facility] [address] [id number] [address] [place] [address], [place] [address] Jul, [facility] [address] [id number] [address] [place] [address], [place] [address] Jun, [facility] [address] [id number] [address] [place] [address], [place] [address] Jun, [facility] [address] [id number] [address] [place] [address], [place] [address] Jun, [facility] [address] [id number] [address] [place] [address], [place] [address] Jun, [facility] [address] [id number] [address] [place] [address], [place] [address] May, [facility] [address] [id number] [address] [place] [address], [place] [address] May, [facility] [address] [id number] [address] [place] [address], [place] [address] Feb, [facility] [address] [id number] [address] [place] [address], [place] [address] Feb, [facility] [address] [id number] [address] [place] [address], [place] [address] Feb, [facility] [address] [id number] [address] [place] [address], [place] [address] Feb, [facility] [address] [id number] [address] [place] [address], [place] [address] Jan, [facility] [address] [id number] [address] [place] [address], [place] [address] Jan, [facility] [address] [id number] [address] [place] [address], [place] [address] Jan, [facility] [address] [id number] [address] [place] [address], [place] [address] Jan, [facility] [address] [id number] [address] [place] [address], [place] [address] December, [facility] [address] [id number] [address] [place] [address], [place] [address] December, [facility] [address] [id number] [address] [place] [address], [place] [address] December, [facility] [address] [id number] [address] [place] [address], [place] [address] December, [facility] [address] [id number] [address] [place] [address], [place] [address] December, [facility] [address] [id number] [address] [place] [address], [place] [address] December, [facility] [address] [id number] [address] [place] [address], [place] [address] December, [facility] [address] [id number] [address] [place] [address], [place] [address] December, [facility] [address] [id number] [address] [place] [address], [place] [address] December, [facility] [address] [id number] [address] [place] [address], [place] [address] December, [facility] [address] [id number] [address] [place] [address], [place] [address] December, [facility] [address] [id number] [address] [place] [address], [place] [address] December, [facility] [address] [id number] [address] [place] [address], [place] [address] December, [facility] [address] [id number] [address] [place] [address], [place] [address] December, [facility] [address] [id number] [address] [place] [address], [place] [address] December, [facility] [address] [id number] [facility] [place] [address] December, [facility] [address] [id number] [address] [place] [address], [place] [address] December, [facility] [address] [id number] [address] [place] [address], [place] [address] Nov, [facility] [address] [id number] [address] [place] [address], [place] [address] Nov, [facility] [address] [id number] [address] [place] [address], [place] [address] Nov, [facility] [address] [id number] [address] [place] [address], [place] [address] Nov, [facility] [address] [id number] [address] [place] [address], [place] [address] Nov, [facility] [address] [id number] [address] [place] [address], [place] [address] Nov, [facility] [address] [id number] [address] [place] [address], [place] [address] Nov, [facility] [address] [id number] [address] [place] [address], [place] [address] Nov, [facility] [address] [id number] [address] [place] [address], [place] [address] Nov, [facility] [address] [id number] [address] [place] [address], [place] [address] Nov, [facility] [address] [id number] [address] [place] [address], [place] [address] Nov, [facility] [address] [id number] [address] [place] [address], [place] [address] Nov, [facility] [address] [id number] [address] [place] [address], [place] [address] Nov, [facility] [address] [id number] [address] [place] [address], [place] [address] Nov, [facility] [address] [id number] [facility] [place] [address] Nov, [facility] [address] [id number] [address] [place] [address], [place] [address] Nov, [facility] [address] [id number] [facility] [place] [address] Oct, [facility] [address] [id number] [address] [place] [address], [place] [address] Oct, [facility] [address] [id number] [address] [place] [address], [place] [address] Oct, [facility] [address] [id number] [address] [place] [address], [place] [address] Oct, [facility] [address] [id number] [address] [place] [address], [place] [address] Oct, [facility] [address] [id number] [address] [place] [address], [place] [address] Oct, [facility] [address] [id number] [address] [place] [address], [place] [address] Oct, [facility] [address] [id number] [address] [place] [address], [place] [address] Oct, [facility] [address] [id number] [address] [place] [address], [place] [address] Sep, [facility] [address] [id number] [address] [place] [address], [place] [address] Sep, [facility] [address] [id number] [address] [place] [address], [place] [address] Sep, [facility] [address] [id number] [address] [place] [address], [place] [address] Sep, [facility] [address] [id number] [address] [place] [address], [place] [address] Sep, [facility] [address] [id number] [address] [place] [address], [place] [address] Sep, 2013 [facility] [address] [id number] [address] [place] [address], [place] [address] Sep, 2013 [facility] [address] [id number] [address] [place] [address], [place] [address] Sep, [facility] [address] [id number] [address] [place] [address], [place] [address] Sep, [facility] [address] [id number] [address] [place] [address], [place] [address] Sep, [facility] [address] [id number] [address] [place] [address], [place] [address] Aug, [facility] [address] [id number] [address] [place] [address], [place] [address] Aug, [facility] [address] [id number] [address] [place] [address], [place] [address] Jul, [facility] [address] [id number] [address] [place] [address], [place] [address] Jul, [facility] [address] [id number] [address] [place] [address], [place] [address] Jul, [facility] [address] [id number] [address] [place] [address], [place] [address] Jul, [facility] [address] [id number] [address] [place] [address], [place] [address] Jul, [facility] [address] [id number] [address] [place] [address], [place] [address] Jul, [facility] [address] [id number] [address] [place] [address], [place] [address] Jun, [facility] [address] [id number] [address] [place] [id number] Jun, [facility] [address] [id number] [address] [place] [address], [place] [address] Jun, [facility] [address] [id number] [address] [place] [address], [place] [address] May, [facility] [address] [id number] [address] [place] [address], [place] [address] December, [facility] [address] [id number] [address] [place] [address], [place] [address] December, [facility] [address] [id number] [address] [place] [address], [place] [address] Jan, [facility] [address] [id number] [address] [place] [address], [place] [address] Jan, [facility] [address] [id number] [address] [place] [address], [place] [address] Jan, [facility] [address] [id number] [address] [place] [address], [place] [address] Jan, [facility] [address] [id number] [address] [place] [address], [place] [address] December, [facility] [address] [id number] [id number] December, [facility] [address] [id number] [address] [place] [address], [place] [address] December, [facility] [address] [id number] [address] [place] [address], [place] [address] December, [facility] [address] [id number] [address] [place] [address], [place] [address] December, [facility] [address] [id number] [address] [place] [address], [place] [address] Oct, [facility] [address] [id number] [address] [place] [address], [place] [id number] Jul, [facility] [address] [id number] [address] [place] [address], [place] [id number] Jul, [facility] [address] [id number] [address] [place] [address] [place] [id number] Jun, IMMUNIZATIONS No Known Immunizations SOCIAL HISTORY Never Assessed REASON FOR VISIT PLAN OF CARE VITAL SIGNS Height 63 in 2014-07-18 Weight 167.99 lbs 2014-07-18 Temperature 98.7 degrees Fahrenheit 2014-07-18 Heart Rate 88 bpm 2014-07-18 Respiratory Rate 20 2014-07-18 Blood pressure systolic 128 mmHg 2014-07-18 Blood pressure diastolic 80 mmHg 2014-07-18 MEDICATIONS No Known Medications RESULTS No Results PROCEDURES Procedure Date Ordered Result Body Site HEPATITIS B SURFACE AG, EIA Jul 18, 2014 COMPLETE CBC W/AUTO DIFF WBC Jul 18, 2014 URINE CULTURE/COLONY COUNT Jul 18, 2014 HIV-1 Jul 18, 2014 BLOOD SEROLOGY, QUALITATIVE Jul 18, 2014 ASSAY THYROID STIM HORMONE Jul 18, 2014 OB US < 14 WKS, SINGLE FETUS Jul 18, 2014 RBC ANTIBODY SCREEN Jul 18, 2014 URINALYSIS, AUTO, W/O SCOPE Jul 18, 2014 VENIPUNCT, ROUTINE* Jul 18, 2014 INSTRUCTIONS MEDICATIONS ADMINISTERED No Known Medications [...]
--- OUTSIDE RECORDS SUMMARY | 2019-11-24 00:51 | XMS REPORT ---
Author Author Ralph Vilma JACKALICIA Organization [facility] Address [address] [place] [address] Care Team Providers Care Purchasing Associate Name Role Phone ASAEL Rosas Unavailable PROBLEMS Type Condition ICD9-CM Code YVI83-GW Code Onset Dates Condition S tatus SNOMED Code Problem Irregular menstrual cycle N92.6 Acti ve 55565613 Problem Elevated blood pressure reading without diagnosi s of hypertension 796.2 Active 606707526 Problem Chronic gingivitis, plaque induced K05.10 Active 55672906 Problem Tobacco abuse Z72.0 Active 102712 05 Problem Constipation, unspecified constipation type K59.00 Active 81682258 Problem Lower abdominal pain R10.30 Active 84938768 Problem Anxiety F41.9 Active 03729673 Problem Fatigue, unspecified type R53.83 Acti ve 72588190 ALLERGIES No Known Allergies ENCOUNTERS Encounter Location Date Diagnosis [facility] [address] [id number] [place] [id number] Feb, Acute cystitis without hematuria N30.00 [facility] [address] [id number] [place] [id number] Oct, [facility] [address] [id number] [address] [place] [address] [id number] Oct, Dental examination Z01.20 [facility] [address] [id number] [address] [place] [address] Oct, Dental examination Z01.20 an d Chronic gingivitis, plaque induced K05.10 [facility] [address] [id number] [address] [place] [address] Oct, Dental examination Z01.20 [facility] [address] [id number] [place] [id number] Jun, [facility] [place] [address] [id number] [place] [id number] May, [facility] [place] [address] [id number] [place] [id number] May, [facility] [place] [address] [id number] [place] [id number] Apr, [facility] [place] [address] [id number] [place] [id number] Apr, [facility] [place] [address] [id number] [place] [id number] Feb, Encounter for test, result unk nown Z32.00 [facility] [place] [address] [id number] [place] [id number] Feb, [facility] [place] [address] [id number] [place] [id number] Feb, [facility] [place] [address] [id number] [place] [id number] Feb, Encounter for test, result unk nown Z32.00 [facility] [place] [address] [id number] [place] [id number] Jan, [facility] [place] [address] [id number] [place] [id number] Jan, [facility] [place] [address] [id number] [place] [id number] Jan, [facility] [place] [address] [id number] [place] [id number] December, [facility] [place] [address] [id number] [place] [id number] December, [facility] [place] [address] [id number] [place] [id number] Nov, [facility] [place] [address] [id number] [place] [id number] Nov, [facility] [place] [address] [id number] [place] [id number] Nov, [facility] [place] [address] [id number] [place] [id number] Oct, [facility] [place] [address] [id number] [place] [id number] Oct, [facility] [place] [address] [id number] [place] [id number] Oct, [facility] [place] [address] [id number] [place] [id number] Oct, [facility] [place] [address] [id number] [place] [id number] Sep, [facility] [place] [address] [id number] [place] [id number] Sep, [facility] [place] [address] [id number] [place] [id number] Sep, [facility] [place] [address] [id number] [place] [id number] Sep, [facility] [place] [address] [id number] [place] [id number] Sep, [facility] [place] [address] [id number] [place] [id number] Aug, [facility] [place] [address] [id number] [place] [id number] Jul, [facility] [place] [address] [id number] [place] [id number] Jul, [facility] [place] [address] [id number] [place] [id number] Jun, [facility] [place] [address] [id number] [place] [id number] Jun, [facility] [place] [address] [id number] [place] [id number] Jun, [facility] [place] [address] [id number] [place] [id number] Jun, [facility] [place] [address] [id number] [place] [id number] Jun, [facility] [place] [address] [id number] [place] [id number] Jun, [facility] [place] [address] [id number] [place] [id number] May, [facility] [place] [address] [id number] [place] [id number] May, [facility] [place] [address] [id number] [place] [id number] May, [facility] [address] [id number] [address] [place] [address] Apr, Bronchitis J40 [facility] [place] [address] [id number] [place] [id number] Mar, [facility] [place] [address] [id number] [place] [id number] Feb, [facility] [place] [address] [id number] [place] [id number] Feb, [facility] [place] [address] [id number] [place] [id number] Feb, Sore throat J02.9 and Ear pain, right H9 2.01 [facility] [place] [address] [id number] [place] [id number] Jan, [facility] [place] [address] [id number] [place] [id number] Jan, Viral syndrome B34.9 ; Other seasonal al lergic rhinitis J30.2 and Post-nasal [facility]p R09.82 [facility] [place] [address] [id number] [place] [id number] Jan, [facility] [place] [address] [id number] [place] [id number] Nov, [facility] [place] [address] [id number] [place] [id number] Oct, test positive Z32.01 [facility] [address] [id number] [address] [place] [address] Oct, [facility] [address] [id number] [address] [place] [address] Oct, [facility] [address] [id number] [address] [place] [address] Sep, Kidney stones N20.0 [facility] [address] [id number] [address] [place] [address] Sep, [facility] [address] [id number] [address] [place] [address] Sep, Pelvic pain R10.2 ; Left low er quadrant pain R10.32 ; Vaginal discharge N89.8 ; Routine screening for STI (sexually transmitted infection) Z11.3 ; Unprotected sexual intercourse Z72.51 ; Kidney stone N20.0 ; History of dyspareunia in female Z87.42 and Screening for malignant neoplasm of cervix Z12.4 [place] [address] [address] Jun, Constipation, unspecified co nstipation type K59.00 ; Lower abdominal pain R10.30 ; Irregular menstrual cycle N92.6 ; Anxiety F41.9 ; Fatigue, unspecified type R53.83 and Tobacco abuse Z72.0 [facility] [place] [address] [id number] [place] [id number] Jun, [facility] [place] [address] [id number] [place] [id number] Jun, Nausea R11.0 [facility] [place] [address] [id number] [place] [id number] May, Alopecia L65.9 [facility] [place] [address] [id number] [place] [id number] May, [facility] [place] [address] [id number] [place] [id number] Apr, [facility] [place] [address] [id number] [place] [id number] Mar, [facility] [place] [address] [id number] [place] [id number] Mar, [facility] [place] [address] [id number] [place] [id number] Mar, [facility] [address] [id number] [address] [place] [address] Mar, test negative V72. 41 [facility] [place] [address] [id number] [place] [id number] Mar, [facility] [place] [address] [id number] [place] [id number] Mar, [facility] [place] [address] [id number] [place] [id number] Feb, [facility] [place] [address] [id number] [place] [id number] Feb, [facility] [place] [address] [id number] [place] [id number] Feb, [facility] [place] [address] [id number] [place] [id number] Feb, [facility] [place] [address] [id number] [place] [id number] Feb, [facility] [place] [address] [id number] [place] [id number] Feb, [facility] [place] [address] [id number] [place] [id number] Feb, [facility] [place] [address] [id number] [place] [id number] Feb, [facility] [place] [address] [id number] [place] [id number] Feb, [facility] [place] [address] [id number] [place] [id number] Feb, [facility] [place] [address] [id number] [place] [id number] Feb, [facility] [place] [address] [id number] [place] [id number] Feb, [facility] [place] [address] [id number] [place] [id number] Jan, [facility] [place] [address] [id number] [place] [id number] Jan, [facility] [place] [address] [id number] [place] [id number] Jan, [facility] [address] [id number] [place] [id number] Jan, Dental examination V72.2 [facility] [place] [address] [id number] [place] [id number] Jan, [facility] [place] [address] [id number] [place] [id number] Jan, [facility] [place] [address] [id number] [place] [id number] Jan, [facility] [place] [address] [id number] [place] [id number] Jan, [facility] [place] [address] [id number] [place] [id number] Jan, [facility] [place] [address] [id number] [place] [id number] Jan, [facility] [place] [address] [id number] [place] [id number] Jan, [facility] [place] [address] [id number] [place] [id number] Jan, [facility] [place] [address] [id number] [place] [id number] Jan, [facility] [place] [address] [id number] [place] [id number] Jan, [facility] [place] [address] [id number] [place] [id number] Jan, [facility] [place] [address] [id number] [place] [id number] Jan, [facility] [place] [address] [id number] [place] [id number] Jan, [facility] [place] [address] [id number] [place] [id number] Jan, [facility] [place] [address] [id number] [place] [id number] Jan, [facility] [place] [address] [id number] [place] [id number] Jan, [facility] [place] [address] [id number] [place] [id number] Jan, [facility] [place] [address] [id number] [place] [id number] Jan, [facility] [place] [address] [id number] [place] [id number] Jan, [facility] [place] [address] [id number] [place] [id number] Jan, [facility] [place] [address] [id number] [place] [id number] Jan, [facility] [place] [address] [id number] [place] [id number] Jan, [facility] [place] [address] [id number] [place] [id number] Jan, [facility] [place] [address] [id number] [place] [id number] Jan, [facility] [place] [address] [id number] [place] [id number] December, [facility] [place] [address] [id number] [place] [id number] December, [facility] [place] [address] [id number] [place] [id number] December, [facility] [place] [address] [id number] [place] [id number] December, [facility] [place] [address] [id number] [place] [id number] December, [facility] [place] [address] [id number] [place] [id number] December, [facility] [place] [address] [id number] [place] [id number] December, [facility] [place] [address] [id number] [place] [id number] December, [facility] [place] [address] [id number] [place] [id number] December, [facility] [place] [address] [id number] [place] [id number] December, [facility] [place] [address] [id number] [place] [id number] December, [facility] [place] [address] [id number] [place] [id number] December, [facility] [place] [address] [id number] [place] [id number] December, [facility] [place] [address] [id number] [place] [id number] December, [facility] [place] [address] [id number] [place] [id number] Nov, [facility] [place] [address] [id number] [place] [id number] Nov, [facility] [place] [address] [id number] [place] [id number] Nov, [facility] [place] [address] [id number] [place] [id number] Nov, [facility] [address] [facility] [id number] [address] [place] [address] Nov, [facility] [address] [facility] [id number] [address] [place] [address] Nov, [facility] [address] [facility] [id number] [address] [place] [address] Sep, [facility] [address] [facility] [id number] [address] [place] [address] Sep, [facility] [address] [facility] [id number] [address] [place] [address] Jul, [facility] [address] [facility] [id number] [address] [place] [address] Jul, [facility] [address] [facility] [id number] [address] [place] [address] Jul, [facility] [address] [facility] [id number] [address] [place] [address] Jul, [facility] [address] [facility] [id number] [address] [place] [address] Jul, [facility] [address] [facility] [id number] [address] [place] [address], [place] [address] Jul, [facility] [address] [id number] [address] [place] [address], [place] [address] Jun, [facility] [address] [id number] [address] [place] [address], [place] [address] Jun, [facility] [address] [id number] [address] [place] [address], [place] [address] Jun, [facility] [address] [id number] [address] [place] [address], [place] [address] Jun, [facility] [address] [id number] [address] [place] [address], [place] [address] May, [facility] [address] [id number] [address] [place] [address], [place] [address] May, [facility] [address] [id number] [address] [place] [address], [place] [address] Feb, [facility] [address] [id number] [address] [place] [address], [place] [address] Feb, [facility] [address] [id number] [address] [place] [address], [place] [address] Feb, [facility] [address] [id number] [address] [place] [address], [place] [address] Feb, [facility] [address] [id number] [address] [place] [address], [place] [address] Jan, [facility] [address] [id number] [address] [place] [address], [place] [address] Jan, [facility] [address] [id number] [address] [place] [address], [place] [address] Jan, [facility] [address] [id number] [address] [place] [address], [place] [address] Jan, [facility] [address] [id number] [address] [place] [address], [place] [address] December, [facility] [address] [id number] [address] [place] [address], [place] [address] December, [facility] [address] [id number] [address] [place] [address], [place] [address] December, [facility] [address] [id number] [address] [place] [address], [place] [address] December, [facility] [address] [id number] [address] [place] [address], [place] [address] December, [facility] [address] [id number] [address] [place] [address], [place] [address] December, [facility] [address] [id number] [address] [place] [address], [place] [address] December, [facility] [address] [id number] [address] [place] [address], [place] [address] December, [facility] [address] [id number] [address] [place] [address], [place] [address] December, [facility] [address] [id number] [address] [place] [address], [place] [address] December, [facility] [address] [id number] [address] [place] [address], [place] [address] December, [facility] [address] [id number] [address] [place] [address], [place] [address] December, [facility] [address] [id number] [address] [place] [address], [place] [address] December, [facility] [address] [id number] [address] [place] [address], [place] [address] December, [facility] [address] [id number] [address] [place] [address], [place] [address] December, [facility] [address] [id number] [address] [place] [address], [place] [address] December, [facility] [address] [id number] [address] [place] [address], [place] [address] December, [facility] [address] [id number] [facility] [place] [address] Nov, [facility] [address] [id number] [address] [place] [address], [place] [address] Nov, [facility] [address] [id number] [address] [place] [address], [place] [address] Nov, [facility] [address] [id number] [address] [place] [address], [place] [address] Nov, [facility] [address] [id number] [address] [place] [address], [place] [address] Nov, [facility] [address] [id number] [address] [place] [address], [place] [address] Nov, [facility] [address] [id number] [address] [place] [address], [place] [address] Nov, [facility] [address] [id number] [address] [place] [address], [place] [address] Nov, [facility] [address] [id number] [address] [place] [address], [place] [address] Nov, [facility] [address] [id number] [address] [place] [address], [place] [address] Nov, [facility] [address] [id number] [address] [place] [address], [place] [address] Nov, [facility] [address] [id number] [address] [place] [address], [place] [address] Nov, [facility] [address] [id number] [address] [place] [address], [place] [address] Nov, [facility] [address] [id number] [address] [place] [address], [place] [address] Nov, [facility] [address] [id number] [address] [place] [address], [place] [address] Nov, [facility] [address] [id number] [address] [place] [address], [place] [address] Nov, [facility] [address] [id number] [address] [place] [address], [place] [address] Oct, [facility] [address] [id number] [address] [place] [address], [place] [address] Oct, [facility] [address] [id number] [address] [place] [address], [place] [address] Oct, [facility] [address] [id number] [address] [place] [address], [place] [address] Oct, [facility] [address] [id number] [address] [place] [address], [place] [address] Oct, [facility] [address] [id number] [address] [place] [address], [place] [address] Oct, [facility] [address] [id number] [address] [place] [address], [place] [address] Oct, [facility] [address] [id number] [address] [place] [address], [place] [address] Oct, [facility] [address] [id number] [address] [place] [address], [place] [address] Sep, [facility] [address] [id number] [address] [place] [address], [place] [address] Sep, [facility] [address] [id number] [address] [place] [address], [place] [address] Sep, [facility] [address] [id number] [address] [place] [address], [place] [address] Sep, [facility] [address] [id number] [address] [place] [address], [place] [address] Sep, [facility] [address] [id number] [address] [place] [address], [place] [address] Sep, [facility] [address] [id number] [address] [address] Sep, [facility] [address] [id number] [address] [place] [address], [place] [address] Sep, [facility] [address] [id number] [address] [place] [address], [place] [address] Sep, [facility] [address] [id number] [address] [place] [address], [place] [address] Sep, [facility] [address] [id number] [address] [place] [address], [place] [address] Aug, [facility] [address] [id number] [address] [place] [address], [place] [address] Aug, [facility] [address] [id number] [address] [place] [address], [place] [address] Jul, [facility] [address] [id number] [address] [place] [address], [place] [address] Jul, [facility] [address] [id number] [address] [place] [address], [place] [address] Jul, [facility] [address] [id number] [address] [place] [address], [place] [address] Jul, [facility] [address] [id number] [address] [place] [address], [place] [address] Jul, [facility] [address] [id number] [address] [place] [address] Jul, [facility] [address] [id number] [address] [place] [address] Jun, [facility] [address] [id number] [address] [place] [address] Jun, [facility] [address] [id number] [address] [place] [address] Jun, [facility] [address] [id number] [address] [place] [address], [place] [address] May, [facility] [address] [id number] [address] [place] [address] December, [facility] [address] [id number] [address] [place] [address] December, [facility] [address] [id number] [address] [place] [address] Jan, [facility] [address] [id number] [address] [place] [address] Jan, [facility] [address] [id number] [address] [place] [address] Jan, [facility] [address] [id number] [address] [place] [address] Jan, [facility] [address] [id number] [address] [place] [address] December, [address] [id number] [place] [id number] December, [facility] [address] [id number] [address] [place] [id number] December, [facility] [address] [id number] [address] [place] [id number] December, [facility] [address] [id number] [address] [place] [id number] December, [facility] [address] [id number] [address] [place] [address] Oct, [facility] [address] [id number] [address] [place] [address] Jul, [facility] [address] [id number] [address] [place] [id number] Jul, [facility] [address] [facility] [id number] [address] [place] [address] [id number] Jun, IMMUNIZATIONS No Known Immunizations SOCIAL HISTORY Never Assessed REASON FOR VISIT PLAN OF CARE Activity Details Follow Up prn Reason:#[id number] VITAL SIGNS MEDICATIONS Medication Instructions Dosage Frequency Start Date End Date Duration S meenakshius Omeprazole Active Orally Once a day 1 tablet 24h Unkn own Zoloft Active Saline Nasal [place] 0.65 % Nasally every 2 hours prn 2 sprays as dir ected Jan, Unknown Zantac 150 MG Orally Once a day 1 tablet at bedtime 24h Unknown RESULTS No Results PROCEDURES Procedure Date Ordered Result Body Site LTD ORAL EVALUATION - PROBLEM FOCUS October 22, 2017 INTRAORL-PERIAPICAL 1 FILM [id number] October 22, 2017 BITEWINGS - TWO FILMS October 22, 2017 INTRAORL-PERIAPICAL EA ADD FILM October 22, 2017 INSTRUCTIONS MEDICATIONS ADMINISTERED No Known Medications MEDICAL [...] 06/2016 Surgical History 10/2017 Hospitalization History surgeries, childbirth
--- OUTSIDE RECORDS SUMMARY | 2019-11-24 00:51 | XMS REPORT ---
Author Author Vilma Louis Doctor Organization [facility] Address Unknown Phone Unavailable Care Team Providers Care [employer] Name Role Phone Migration, Doctor Unavailable Unavailable PROBLEMS Type Condition ICD9-CM Code [id number] Code Onset Dates Condition S tatus SNOMED Code Problem Elevated blood pressure reading without diagnosi s of hypertension 796.2 Active 897902044 Problem Irregular menstrual cycle N92.6 Acti ve 03187554 Problem Tobacco abuse Z72.0 Active 461927 05 Problem Chronic gingivitis, plaque induced K05.10 Active 49722979 Problem Lower abdominal pain R10.30 Active 49650793 Problem Constipation, unspecified constipation type K59.00 Active 41900236 Problem Fatigue, unspecified type R53.83 Acti ve 52755275 Problem Anxiety F41.9 Active 52065235 ALLERGIES No Information ENCOUNTERS Encounter Location Date Diagnosis [facility] [address] [id number] [place] [id number] Feb, Acute cystitis without hematuria N30.00 [facility] [address] [id number] [place] [id number] Oct, [facility] [address] [id number] [address] [place] [address] [id number] Oct, Dental examination Z01.20 [facility] [address] [id number] [address] [place] [address] Oct, Dental examination Z01.20 an d Chronic gingivitis, plaque induced K05.10 [facility] [address] [id number] [address] [place] [address] Oct, Dental examination Z01.20 [facility] [address] [id number] [place] [id number] Jun, [facility] [address] [id number] [place] [id number] May, [facility] [place] [address] [id number] [place] [id number] May, [facility] [place] [address] [id number] [place] [id number] Apr, [facility] [place] [address] [id number] [place] [id number] Apr, [facility] [place] [address] [id number] [place] [id number] Feb, Encounter for test, result unk nown Z32.00 [facility] [place] [address] [id number] [place] [id number] Feb, [facility] [place] [address] [id number] [place] [id number] Feb, [facility] [place] [address] [id number] [place] [id number] Feb, Encounter for test, result unk nown Z32.00 [facility] [place] [address] [id number] [place] [id number] Jan, [facility] [place] [address] [id number] [place] [id number] Jan, [facility] [place] [address] [id number] [place] [id number] Jan, [facility] [place] [address] [id number] [place] [id number] December, [facility] [place] [address] [id number] [place] [id number] December, [facility] [place] [address] [id number] [place] [id number] Nov, [facility] [place] [address] [id number] [place] [id number] Nov, [facility] [place] [address] [id number] [place] [id number] Nov, [facility] [place] [address] [id number] [place] [id number] Oct, [facility] [place] [address] [id number] [place] [id number] Oct, [facility] [place] [address] [id number] [place] [id number] Oct, [facility] [place] [address] [id number] [place] [id number] Oct, [facility] [place] [address] [id number] [place] [id number] Sep, [facility] [place] [address] [id number] [place] [id number] Sep, [facility] [place] [address] [id number] [place] [id number] Sep, [facility] [place] [address] [id number] [place] [id number] Sep, [facility] [place] [address] [id number] [place] [id number] Sep, [facility] [place] [address] [id number] [place] [id number] Aug, [facility] [place] [address] [id number] [place] [id number] Jul, [facility] [place] [address] [id number] [place] [id number] Jul, [facility] [place] [address] [id number] [place] [id number] Jun, [facility] [place] [address] [id number] [place] [id number] Jun, [facility] [place] [address] [id number] [place] [id number] Jun, [facility] [place] [address] [id number] [place] [id number] Jun, [facility] [place] [address] [id number] [place] [id number] Jun, [facility] [place] [address] [id number] [place] [id number] Jun, [facility] [place] [address] [id number] [place] [id number] May, [facility] [place] [address] [id number] [place] [id number] May[facility] [address] [facility] [id number] [place] [id number] May, [facility] [address] [id number] [address] [place] [address] Apr, Bronchitis J40 [facility] [place] [address] [id number] [place] [id number] Mar, [facility] [address] [id number] [place] [id number] Feb, [facility] [address] [id number] [place] [id number] Feb, [facility] [address] [id number] [place] [address], [place] [id number] Feb, Sore throat J02.9 and Ear pain, right H9 2.01 [facility] [address] [id number] [place] [id number] Jan, [facility] [address] [id number] [place] [id number] Jan, Viral syndrome B34.9 ; Other seasonal al lergic rhinitis J30.2 and Post-nasal drip R09.82 [facility] [address] [facility] [id number] [place] [id number] Jan, [facility] [address] [facility] [id number] [place] [id number] Nov[facility] [address] [facility] [id number] [place] [id number] Oct, test positive Z32.01 [facility] [address] [id number] [address] [place] [address] Oct, [facility] [address] [id number] [address] [place] [address] Oct, [facility] [address] [id number] [address] [place] [address] Sep, Kidney stones N20.0 [facility] [address] [id number] [address] [place] [address] 18 Sep, 2015 [facility] [address] [id number] [address] [place] [address] 11 Sep, 2015 Pelvic pain R10.2 ; Left low er quadrant pain R10.32 ; Vaginal discharge N89.8 ; Routine screening for STI (sexually transmitted infection) Z11.3 ; Unprotected sexual intercourse Z72.51 ; Kidney stone N20.0 ; History of dyspareunia in female Z87.42 and Screening for malignant neoplasm of cervix Z12.4 [facility] [address] [id number] [address] [place] [address] 12 Jun, 2015 Constipation, unspecified co nstipation type K59.00 ; Lower abdominal pain R10.30 ; Irregular menstrual cycle N92.6 ; Anxiety F41.9 ; Fatigue, unspecified type R53.83 and Tobacco abuse Z72.[address] [facility] [place] [address] [id number] [place] [id number] Jun, [facility] [place] [address] [id number] [place] [id number] Jun, Nausea R11.0 [facility] [place] [address] [id number] [place] [id number] May, Alopecia L65.9 [facility] [place] [address] [id number] [place] [id number] May, [facility] [place] [address] [id number] [place] [id number] Apr, [facility] [place] [address] [id number] [place] [id number] Mar, [facility] [place] [address] [id number] [place] [id number] Mar, [facility] [place] [address] [id number] [place] [id number] Mar, [facility] [address] [id number] [address] [place] [address] Mar, test negative V72. 41 [facility] [place] [address] [id number] [place] [id number] Mar, [facility] [place] [address] [id number] [place] [id number] Mar, [facility] [place] [address] [id number] [place] [id number] Feb, [facility] [place] [address] [id number] [place] [id number] Feb, [facility] [place] [address] [id number] [place] [id number] Feb, [facility] [place] [address] [id number] [place] [id number] Feb, [facility] [place] [address] [id number] [place] [id number] Feb, [facility] [place] [address] [id number] [place] [id number] Feb, [facility] [place] [address] [id number] [place] [id number] Feb, [facility] [place] [address] [id number] [place] [id number] Feb, [facility] [place] [address] [id number] [place] [id number] Feb, [facility] [place] [address] [id number] [place] [id number] Feb, [facility] [place] [address] [id number] [place] [id number] Feb, [facility] [place] [address] [id number] [place] [id number] Feb, [facility] [place] [address] [id number] [place] [id number] Jan, [facility] [place] [address] [id number] [place] [id number] Jan, [facility] [place] [address] [id number] [place] [id number] Jan, [facility] [address] [id number] [place] [id number] Jan, Dental examination V72.2 [facility] [place] [address] [id number] [place] [id number] Jan, [facility] [place] [address] [id number] [place] [id number] Jan, [facility] [place] [address] [id number] [place] [id number] Jan, [facility] [place] [address] [id number] [place] [id number] Jan, [facility] [place] [address] [id number] [place] [id number] Jan, [facility] [place] [address] [id number] [place] [id number] Jan, [facility] [place] [address] [id number] [place] [id number] Jan, [facility] [place] [address] [id number] [place] [id number] Jan, [facility] [place] [address] [id number] [place] [id number] Jan, [facility] [place] [address] [id number] [place] [id number] Jan, [facility] [place] [address] [id number] [place] [id number] Jan, [facility] [place] [address] [id number] [place] [id number] Jan, [facility] [place] [address] [id number] [place] [id number] Jan, [facility] [place] [address] [id number] [place] [id number] Jan, [facility] [place] [address] [id number] [place] [id number] Jan, [facility] [place] [address] [id number] [place] [id number] Jan, [facility] [place] [address] [id number] [place] [id number] Jan, [facility] [place] [address] [id number] [place] [id number] Jan, [facility] [place] [address] [id number] [place] [id number] Jan, [facility] [place] [address] [id number] [place] [id number] Jan, [facility] [place] [address] [id number] [place] [id number] Jan, [facility] [place] [address] [id number] [place] [id number] Jan, [facility] [place] [address] [id number] [place] [id number] Jan, [facility] [place] [address] [id number] [place] [id number] Jan, [facility] [place] [address] [id number] [place] [id number] December, [facility] [place] [address] [id number] [place] [id number] December, [facility] [place] [address] [id number] [place] [id number] December, [facility] [place] [address] [id number] [place] [id number] December, [facility] [place] [address] [id number] [place] [id number] December, [facility] [place] [address] [id number] [place] [id number] December, [facility] [place] [address] [id number] [place] [id number] December, [facility] [place] [address] [id number] [place] [id number] December, [facility] [place] [address] [id number] [place] [id number] December, [facility] [place] [address] [id number] [place] [id number] December, [facility] [place] [address] [id number] [place] [id number] December, [facility] [place] [address] [id number] [place] [id number] December, [facility] [place] [address] [id number] [place] [id number] December, [facility] [place] [address] [id number] [place] [id number] December, [facility] [place] [address] [id number] [place] [id number] Nov, [facility] [place] [address] [id number] [place] [id number] Nov, [facility] [place] [address] [id number] [place] [id number] Nov, [facility] [place] [address] [id number] [place] [id number] Nov, [facility] [address] [id number] [address] [place] [address] Nov, [facility] [address] [id number] [address] [place] [address] Nov, [facility] [address] [id number] [address] [place] [address] Sep, [facility] [address] [id number] [address] [place] [address] Sep, [facility] [address] [id number] [address] [place] [address] Jul, [facility] [address] [id number] [address] [place] [address] Jul, [facility] [address] [id number] [address] [place] [address] Jul, [facility] [address] [id number] [address] [place] [address] Jul, [facility] [address] [id number] [address] [place] [address] Jul, [facility] [address] [id number] [address] [place] [address] Jul, [facility] [address] [id number] [address] [place] [address], [place] [address] Jun, [facility] [address] [id number] [address] [place] [address], [place] [address] Jun, [facility] [address] [id number] [address] [place] [address], [place] [address] Jun, [facility] [address] [id number] [address] [place] [address], [place] [address] Jun, [facility] [address] [id number] [address] [place] [address], [place] [address] May, [facility] [address] [id number] [address] [place] [address], [place] [address] May, [facility] [address] [id number] [address] [place] [address], [place] [address] Feb, [facility] [address] [id number] [address] [place] [address], [place] [address] Feb, [facility] [address] [id number] [address] [place] [address], [place] [address] Feb, [facility] [address] [id number] [address] [place] [address], [place] [address] Feb, [facility] [address] [id number] [address] [place] [address], [place] [address] Jan, [facility] [address] [id number] [address] [place] [address], [place] [address] Jan, [facility] [address] [id number] [address] [place] [address], [place] [address] Jan, [facility] [address] [id number] [address] [place] [address], [place] [address] Jan, [facility] [address] [id number] [address] [place] [address], [place] [address] December, [facility] [address] [id number] [address] [place] [address], [place] [address] December, [facility] [address] [id number] [address] [place] [address], [place] [address] December, [facility] [address] [id number] [address] [place] [address], [place] [address] December, [facility] [address] [id number] [address] [place] [address], [place] [address] December, [facility] [address] [id number] [address] [place] [address], [place] [address] December, [facility] [address] [id number] [address] [place] [address], [place] [address] December, [facility] [address] [id number] [address] [place] [address], [place] [address] December, [facility] [address] [id number] [address] [place] [address], [place] [address] December, [facility] [address] [id number] [address] [place] [address], [place] [address] December, [facility] [address] [id number] [address] [place] [address], [place] [address] December, [facility] [address] [id number] [address] [place] [address], [place] [address] December, [facility] [address] [id number] [address] [place] [address], [place] [address] December, [facility] [address] [id number] [address] [place] [address], [place] [address] December, [facility] [address] [id number] [address] [place] [address], [place] [address] December, [facility] [address] [id number] [address] [place] [address], [place] [address] December, [facility] [address] [id number] [address] [place] [address], [place] [address] December, [facility] [address] [id number] [address] [place] [address], [place] [address] Nov, [facility] [address] [id number] [facility] [place] [address] Nov, [facility] [address] [id number] [address] [place] [address], [place] [address] Nov, [facility] [address] [id number] [address] [place] [address], [place] [address] Nov, [facility] [address] [id number] [address] [place] [address], [place] [address] Nov, [facility] [address] [id number] [address] [place] [address], [place] [address] Nov, [facility] [address] [id number] [address] [place] [address], [place] [address] Nov, [facility] [address] [id number] [address] [place] [address], [place] [address] Nov, [facility] [address] [id number] [address] [place] [address], [place] [address] Nov, [facility] [address] [id number] [address] [place] [address], [place] [address] Nov, [facility] [address] [id number] [address] [place] [address], [place] [address] Nov, [facility] [address] [id number] [address] [place] [address], [place] [address] Nov, [facility] [address] [id number] [address] [place] [address], [place] [address] Nov, [facility] [address] [id number] [address] [place] [address], [place] [address] Nov, [facility] [address] [id number] [address] [place] [address], [place] [address] Nov, [facility] [address] [id number] [address] [place] [address], [place] [address] Nov, [facility] [address] [id number] [facility] [place] [address] Oct, [facility] [address] [id number] [address] [place] [address], [place] [address] Oct, [facility] [address] [id number] [address] [place] [address], [place] [address] Oct, [facility] [address] [id number] [address] [place] [address], [place] [address] Oct, [facility] [address] [id number] [address] [place] [address], [place] [address] Oct, [facility] [address] [id number] [address] [place] [address], [place] [address] Oct, [facility] [address] [id number] [address] [place] [address], [place] [address] Oct, [facility] [address] [id number] [address] [place] [address], [place] [address] Oct, [facility] [address] [id number] [address] [place] [address], [place] [address] Sep, [facility] [address] [id number] [address] [place] [address], [place] [address] Sep, [facility] [address] [id number] [address] [place] [address], [place] [address] Sep, [facility] [address] [id number] [address] [place] [address], [place] [address] Sep, [facility] [address] [id number] [address] [place] [address], [place] [address] Sep, [facility] [address] [id number] [address] [place] [address], [place] [address] Sep, [facility] [address] [id number] [address] [place] [address], [place] [address] Sep, [facility] [address] [id number] [address] [address] Sep, [facility] [address] [id number] [address] [place] [address], [place] [address] Sep, [facility] [address] [id number] [address] [place] [address], [place] [address] Sep, [facility] [address] [id number] [address] [place] [address], [place] [address] Aug, [facility] [address] [id number] [address] [place] [address], [place] [address] Aug, [facility] [address] [id number] [address] [place] [address], [place] [address] Jul, [facility] [address] [id number] [address] [place] [address], [place] [address] Jul, [facility] [address] [id number] [address] [place] [address], [place] [address] Jul, [facility] [address] [id number] [address] [place] [address], [place] [address] Jul, [facility] [address] [id number] [address] [place] [id number] Jul, [facility] [address] [id number] [address] [place] [address], [place] [address] Jul, [facility] [address] [id number] [address] [place] [id number] Jun, [facility] [address] [id number] [address] [place] [id number] Jun, [facility] [address] [id number] [address] [place] [id number] Jun, [facility] [address] [id number] [address] [place] [phone] May, [facility] [address] [id number] [address] [place] [address], [place] [address] December, [facility] [address] [id number] [address] [place] [id number] December, [facility] [address] [id number] [address] [place] [phone] Jan, [facility] [address] [id number] [address] [place] [phone] Jan, [facility] [address] [id number] [address] [place] [phone] Jan, [facility] [address] [id number] [address] [place] [phone] Jan, [facility] [address] [id number] [address] [place] [phone] December, [place] [id number] [place] [id number] December, [facility] [address] [id number] [address] [place] [phone] December, [facility] [address] [id number] [address] [place] [phone] December, [facility] [address] [id number] [address] [place] [id number] December, [facility] [address] [id number] [address] [place] [id number] Oct, [facility] [address] [id number] [address] [place] [id number] Jul, [facility] [address] [id number] [address] [place] [phone] Jul, [facility] [address] [id number] [address] [place] [id number] Jun, IMMUNIZATIONS No Known Immunizations SOCIAL HISTORY Never Assessed REASON FOR VISIT EMR-[facility] [place] PLAN OF CARE VITAL SIGNS MEDICATIONS Medication Instructions Dosage Frequency Start Date End Date Duration S tatus Diflucan 150 mg take 1 tablet by Ora l route once 1 time per day for 1 daywith a full glass of water December, Active Keflex 500 mg take 1 capsule by Oral route 2 times per day for 7 days Jul, Active Zithromax 250 mg 4 tablet by Oral route 1 time per day for 1 dose(s) Jan, Active Flagyl 500 mg 1 tablet by Oral route 2 times per day f or 7 days December, Active RESULTS No Results PROCEDURES No Known [...]
--- OUTSIDE RECORDS SUMMARY | 2019-11-24 00:51 | XMS REPORT ---
Author Author Vilma OQUENDO Organization [facility] Address [address] [place] [address] Care Team Providers Care Order Worker Name Role Phone FAMILIA OQUENDO Unavailable PROBLEMS Type Condition ICD9-CM Code [id number] Code Onset Dates Condition S tatus SNOMED Code Problem Irregular menstrual cycle N92.6 Acti ve 29914690 Problem Elevated blood pressure reading without diagnosi s of hypertension 796.2 Active 812235536 Problem Chronic gingivitis, plaque induced K05.10 Active 26640139 Problem Tobacco abuse Z72.0 Active 811073 05 Problem Constipation, unspecified constipation type K59.00 Active 50815550 Problem Lower abdominal pain R10.30 Active 37771411 Problem Anxiety F41.9 Active 77300144 Problem Fatigue, unspecified type R53.83 Acti ve 30930016 ALLERGIES No Known Allergies ENCOUNTERS Encounter Location Date Diagnosis [facility] [id number] [place] [id number] Feb, Acute cystitis without hematuria N30.00 [facility] [address] [id number] [place] [id number] Oct, [facility] [address] [id number] [address] [place] [address] [id number] Oct, Dental examination Z01.20 [facility] [address] [id number] [address] [place] [address] Oct, Dental examination Z01.20 an d Chronic gingivitis, plaque induced K05.10 [facility] [address] [id number] [address] [place] [address] Oct, Dental examination Z01.20 [facility] [address] [id number] [place] [id number] Jun, [facility] [place] [address] [id number] [place] [id number] May, [facility] [place] [address] [id number] [place] [id number] May, [facility] [place] [address] [id number] [place] [id number] Apr, [facility] [place] [address] [id number] [place] [id number] Apr, [facility] [place] [address] [id number] [place] [id number] Feb, Encounter for test, result unk nown Z32.00 [facility] [place] [address] [id number] [place] [id number] Feb, [facility] [place] [address] [id number] [place] [id number] Feb, [facility] [place] [address] [id number] [place] [id number] Feb, Encounter for test, result unk nown Z32.00 [facility] [place] [address] [id number] [place] [id number] Jan, [facility] [place] [address] [id number] [place] [id number] Jan, [facility] [place] [address] [id number] [place] [id number] Jan, [facility] [place] [address] [id number] [place] [id number] December, [facility] [place] [address] [id number] [place] [id number] December, [facility] [place] [address] [id number] [place] [id number] Nov, [facility] [place] [address] [id number] [place] [id number] Nov, [facility] [place] [address] [id number] [place] [id number] Nov, [facility] [place] [address] [id number] [place] [id number] Oct, [facility] [place] [address] [id number] [place] [id number] Oct, [facility] [place] [address] [id number] [place] [id number] Oct, [facility] [place] [address] [id number] [place] [id number] Oct, [facility] [place] [address] [id number] [place] [id number] Sep, [facility] [place] [address] [id number] [place] [id number] Sep, [facility] [place] [address] [id number] [place] [id number] Sep, [facility] [place] [address] [id number] [place] [id number] Sep, [facility] [place] [address] [id number] [place] [id number] Sep, [facility] [place] [address] [id number] [place] [id number] Aug, [facility] [place] [address] [id number] [place] [id number] Jul, [facility] [place] [address] [id number] [place] [id number] Jul, [facility] [place] [address] [id number] [place] [id number] Jun, [facility] [place] [address] [id number] [place] [id number] Jun, [facility] [place] [address] [id number] [place] [id number] Jun, [facility] [place] [address] [id number] [place] [id number] Jun, [facility] [place] [address] [id number] [place] [id number] Jun, [facility] [place] [address] [id number] [place] [id number] Jun, [facility] [place] [address] [id number] [place] [id number] May, [facility] [place] [address] [id number] [place] [id number] May, [facility] [place] [address] [id number] [place] [id number] May, [facility] [address] [id number] [address] [place] [address] Apr, Bronchitis J40 [facility] [place] [address] [id number] [place] [id number] Mar, [facility] [place] [address] [id number] [place] [id number] Feb, [facility] [place] [address] [id number] [place] [id number] Feb, [facility] [place] [address] [id number] [place] [id number] Feb, Sore throat J02.9 and Ear pain, right H9 2.01 [facility] [place] [address] [id number] [place] [id number] Jan, [facility] [place] [address] [id number] [place] [id number] Jan, Viral syndrome B34.9 ; Other seasonal al lergic rhinitis J30.2 and Post-nasal drip R09.82 [facility] [place] [address] [id number] [place] [id number] Jan, [facility] [place] [address] [id number] [place] [id number] Nov, [facility] [place] [address] [id number] [place] [id number] Oct, test positive Z32.01 [facility] [address] [id number] [address] [place] [address] Oct, [facility] [address] [id number] [address] [place] [address] Oct, [facility] [address] [id number] [address] [place] [address] Sep, Kidney stones N20.0 [facility] [address] [place] [address] Sep, [facility] [address] [id number] [address] [place] [address] Sep, Pelvic pain R10.2 ; Left low er quadrant pain R10.32 ; Vaginal discharge N89.8 ; Routine screening for STI (sexually transmitted infection) Z11.3 ; Unprotected sexual intercourse Z72.51 ; Kidney stone N20.0 ; History of dyspareunia in female Z87.42 and Screening for malignant neoplasm of cervix Z12.4 [place] [address] [address] 12 Jun, 2015 Constipation, unspecified co nstipation type K59.00 ; Lower abdominal pain R10.30 ; Irregular menstrual cycle N92.6 ; Anxiety F41.9 ; Fatigue, unspecified type R53.83 and Tobacco abuse Z72.0 [facility] [place] [address] [id number] [place] [id number] Jun, [facility] [place] [address] [id number] [place] [id number] Jun, Nausea R11.0 [facility] [place] [address] [id number] [place] [id number] May, Alopecia L65.9 [facility] [place] [address] [id number] [place] [id number] May, [facility] [place] [address] [id number] [place] [id number] Apr, [facility] [place] [address] [id number] [place] [id number] Mar, [facility] [place] [address] [id number] [place] [id number] Mar, [facility] [place] [address] [id number] [place] [id number] Mar, [facility] [address] [id number] [address] [place] [address] Mar, test negative V72. 41 [facility] [place] [address] [id number] [place] [id number] Mar, [facility] [place] [address] [id number] [place] [id number] Mar, [facility] [place] [address] [id number] [place] [id number] Feb, [facility] [place] [address] [id number] [place] [id number] Feb, [facility] [place] [address] [id number] [place] [id number] Feb, [facility] [place] [address] [id number] [place] [id number] Feb, [facility] [place] [address] [id number] [place] [id number] Feb, [facility] [place] [address] [id number] [place] [id number] Feb, [facility] [place] [address] [id number] [place] [id number] Feb, [facility] [place] [address] [id number] [place] [id number] Feb, [facility] [place] [address] [id number] [place] [id number] Feb, [facility] [place] [address] [id number] [place] [id number] Feb, [facility] [place] [address] [id number] [place] [id number] Feb, [facility] [place] [address] [id number] [place] [id number] Feb, [facility] [place] [address] [id number] [place] [id number] Jan, [facility] [place] [address] [id number] [place] [id number] Jan, [facility] [place] [address] [id number] [place] [id number] Jan, [facility] [address] [facility] [id number] [place] [id number] Jan, Dental examination V72.2 [facility] [place] [address] [id number] [place] [id number] Jan, [facility] [place] [address] [id number] [place] [id number] Jan, [facility] [place] [address] [id number] [place] [id number] Jan, [facility] [place] [address] [id number] [place] [id number] Jan, [facility] [place] [address] [id number] [place] [id number] Jan, [facility] [place] [address] [id number] [place] [id number] Jan, [facility] [place] [address] [id number] [place] [id number] Jan, [facility] [place] [address] [id number] [place] [id number] Jan, [facility] [place] [address] [id number] [place] [id number] Jan, [facility] [place] [address] [id number] [place] [id number] Jan, [facility] [place] [address] [id number] [place] [id number] Jan, [facility] [place] [address] [id number] [place] [id number] Jan, [facility] [place] [address] [id number] [place] [id number] Jan, [facility] [place] [address] [id number] [place] [id number] Jan, [facility] [place] [address] [id number] [place] [id number] Jan, [facility] [place] [address] [id number] [place] [id number] Jan, [facility] [place] [address] [id number] [place] [id number] Jan, [facility] [place] [address] [id number] [place] [id number] Jan, [facility] [place] [address] [id number] [place] [id number] Jan, [facility] [place] [address] [id number] [place] [id number] Jan, [facility] [place] [address] [id number] [place] [id number] Jan, [facility] [place] [address] [id number] [place] [id number] Jan, [facility] [place] [address] [id number] [place] [id number] Jan, [facility] [place] [address] [id number] [place] [id number] Jan, [facility] [place] [address] [id number] [place] [id number] December, [facility] [place] [address] [id number] [place] [id number] December, [facility] [place] [address] [id number] [place] [id number] December, [facility] [place] [address] [id number] [place] [id number] December, [facility] [place] [address] [id number] [place] [id number] December, [facility] [place] [address] [id number] [place] [id number] December, [facility] [place] [address] [id number] [place] [id number] December, [facility] [place] [address] [id number] [place] [id number] December, [facility] [place] [address] [id number] [place] [id number] December, [facility] [place] [address] [id number] [place] [id number] December, [facility] [place] [address] [id number] [place] [id number] December, [facility] [place] [address] [id number] [place] [id number] December, [facility] [place] [address] [id number] [place] [id number] December, [facility] [place] [address] [id number] [place] [id number] December, [facility] [place] [address] [id number] [place] [id number] Nov, [facility] [place] [address] [id number] [place] [id number] Nov, [facility] [place] [address] [id number] [place] [id number] Nov, [facility] [place] [address] [id number] [place] [id number] Nov, [facility] [address] [facility] [id number] [address] [place] [address] Nov, [facility] [address] [facility] [id number] [address] [place] [address] Nov, [facility] [address] [facility] [id number] [address] [place] [phone] Sep, [facility] [address] [facility] [id number] [address] [place] [address] Sep, [facility] [address] [facility] [id number] [address] [place] [address] Jul, [facility] [address] [facility] [id number] [address] [place] [address] Jul, [facility] [address] [facility] [id number] [address] [place] [address] Jul, [facility] [address] [facility] [id number] [address] [place] [address] Jul, [facility] [address] [facility] [id number] [address] [place] [address] Jul, [facility] [address] [id number] [address] [place] [address], [place] [address] Jul, [facility] [address] [id number] [address] [place] [address], [place] [address] Jun, [facility] [address] [id number] [address] [place] [address], [place] [address] Jun, [facility] [address] [id number] [address] [place] [address], [place] [address] Jun, [facility] [address] [id number] [address] [place] [address], [place] [address] Jun, [facility] [address] [id number] [address] [place] [address], [place] [address] May, [facility] [address] [id number] [address] [place] [address], [place] [address] May, [facility] [address] [id number] [address] [place] [address], [place] [address] Feb, [facility] [address] [id number] [address] [place] [address], [place] [address] Feb, [facility] [address] [id number] [address] [place] [address], [place] [address] Feb, [facility] [address] [id number] [address] [place] [address], [place] [address] Feb, [facility] [address] [id number] [address] [place] [address], [place] [address] Jan, [facility] [address] [id number] [address] [place] [address], [place] [address] Jan, [facility] [address] [id number] [address] [place] [address], [place] [address] Jan, [facility] [address] [id number] [address] [place] [address], [place] [address] Jan, [facility] [address] [id number] [address] [place] [address], [place] [address] December, [facility] [address] [id number] [facility] [place] [address] December, [facility] [address] [id number] [facility] [place] [address] December, [facility] [address] [id number] [facility] [place] [address] December, [facility] [address] [id number] [address] [place] [address], [place] [address] December, [facility] [address] [id number] [facility] [place] [address] December, [facility] [address] [id number] [address] [place] [address], [place] [address] December, [facility] [address] [id number] [address] [place] [address], [place] [address] December, [facility] [address] [id number] [address] [place] [address], [place] [address] December, [facility] [address] [id number] [address] [place] [address], [place] [address] December, [facility] [address] [id number] [address] [place] [address], [place] [address] December, [facility] [address] [id number] [address] [place] [address], [place] [address] December, [facility] [address] [id number] [address] [place] [address], [place] [address] December, [facility] [address] [id number] [address] [place] [address], [place] [address] December, [facility] [address] [id number] [address] [place] [address], [place] [address] December, [facility] [address] [id number] [address] [place] [address], [place] [address] December, [facility] [address] [id number] [address] [place] [address], [place] [address] December, [facility] [address] [id number] [address] [place] [address], [place] [address] Nov, [facility] [address] [id number] [address] [place] [address], [place] [address] Nov, [facility] [address] [id number] [address] [place] [address], [place] [address] Nov, [facility] [address] [id number] [address] [place] [address], [place] [address] Nov, [facility] [address] [id number] [address] [place] [address], [place] [address] Nov, [facility] [address] [id number] [address] [place] [address], [place] [address] Nov, [facility] [address] [id number] [address] [place] [address], [place] [address] Nov, [facility] [address] [id number] [address] [place] [address], [place] [address] Nov, [facility] [address] [id number] [address] [place] [address], [place] [address] Nov, [facility] [address] [id number] [address] [place] [address], [place] [address] Nov, [facility] [address] [id number] [address] [place] [address], [place] [address] Nov, [facility] [address] [id number] [address] [place] [address], [place] [address] Nov, [facility] [address] [id number] [address] [place] [address], [place] [address] Nov, [facility] [address] [id number] [address] [place] [address], [place] [address] Nov, [facility] [address] [id number] [address] [place] [address], [place] [address] Nov, [facility] [address] [id number] [facility] [place] [address] Nov, [facility] [address] [id number] [facility] [place] [address] Oct, [facility] [address] [id number] [facility] [place] [address] Oct, [facility] [address] [id number] [address] [place] [address], [place] [address] Oct, [facility] [address] [id number] [address] [place] [address], [place] [address] Oct, [facility] [address] [id number] [address] [place] [address], [place] [address] Oct, [facility] [address] [id number] [address] [place] [address], [place] [address] Oct, [facility] [address] [id number] [address] [place] [address], [place] [address] Oct, [facility] [address] [id number] [address] [place] [address], [place] [address] Oct, [facility] [address] [id number] [address] [place] [address], [place] [address] Sep, [facility] [address] [id number] [address] [place] [address], [place] [address] Sep, [facility] [address] [id number] [address] [place] [address], [place] [address] Sep, [facility] [address] [id number] [address] [place] [address], [place] [address] Sep, [facility] [address] [id number] [address] [place] [address], [place] [address] Sep, [facility] [address] [id number] [address] [place] [address], [place] [address] Sep, [facility] [address] [id number] [address] [place] [address], [place] [address] Sep, [facility] [address] [id number] [address] [place] [address], [place] [address] Sep, [facility] [address] [id number] [address] [place] [address], [place] [address] Sep, [facility] [address] [id number] [address] [place] [address], [place] [address] Sep, [facility] [address] [id number] [address] [place] [address], [place] [address] Aug, [facility] [address] [id number] [address] [place] [address], [place] [address] Aug, [facility] [address] [id number] [address] [place] [address], [place] [address] Jul, [facility] [address] [id number] [address] [place] [address], [place] [address] Jul, [facility] [address] [id number] [address] [place] [address], [place] [address] Jul, [facility] [address] [id number] [address] [place] [address], [place] [address] Jul, [facility] [address] [id number] [address] [place] [address], [place] [address] Jul, [facility] [address] [id number] [address] [place] [address], [place] [address] Jul, [facility] [address] [id number] [address] [place] [address] Jun, [facility] [address] [id number] [address] [place] [address], [place] [address] Jun, [facility] [address] [id number] [address] [place] [address], [place] [address] Jun, [facility] [address] [id number] [address] [place] [address], [place] [address] May, [facility] [address] [id number] [address] [place] [address] December, [facility] [address] [id number] [address] [place] [address] December, [facility] [address] [id number] [address] [place] [address] Jan, [facility] [address] [id number] [address] [place] [address] Jan, [facility] [address] [id number] [address] [place] [id number] Jan, [facility] [address] [id number] [address] [place] [id number] Jan, [facility] [address] [id number] [address] [place] [address] December, [id number] [place] [id number] December, [facility] [address] [id number] [address] [place] [address] December, [facility] [address] [id number] [address] [place] [address] December, [facility] [address] [id number] [address] [place] [id number] December, [facility] [address] [id number] [address] [place] [address] Oct, [facility] [address] [id number] [address] [place] [address] Jul, [facility] [facility] [address] [id number] [address] [place] [id number] Jul, [facility] [address] [id number] [address] [place] [id number] Jun, IMMUNIZATIONS No Known Immunizations SOCIAL HISTORY Never Assessed REASON FOR VISIT UTI symptoms, frequent urination , pelvic pain both for 3 days---[place]YO youngblood PLAN OF CARE Activity Details Follow Up if not improving or regular follow up with pcp Reason: VITAL SIGNS Height 63 in 2018-02-23 Weight 161.8 lbs 2018-02-23 Temperature 97.4 degrees Fahrenheit 2018-02-23 Heart Rate 80 bpm 2018-02-23 Respiratory Rate 16 2018-02-23 BMI 28.66 kg/m2 2018-02-23 Blood pressure systolic 124 mmHg 2018-02-23 Blood pressure diastolic 80 mmHg 2018-02-23 MEDICATIONS Medication Instructions Dosage Frequency Start Date End Date Duration S tatus Amoxicillin-Pot Clavulanate 500-125 MG Orally every 12 hrs 1 tablet 12h Feb, Feb, 07 days Active Zoloft 50 MG Orally Once a day 24h A ctive Orally Once a day 1 tablet 24h Acti ve RESULTS No Results PROCEDURES Procedure Date Ordered Result Body Site URINALYSIS, AUTO, W/O SCOPE February 23, 2018 LAB NOT BILLED BY [facility] February 23, 2018 URINE TEST February 23, 2018 INSTRUCTIONS MEDICATIONS ADMINISTERED No Known Medications MEDICAL [...]
--- OUTSIDE RECORDS SUMMARY | 2019-11-24 00:51 | XMS REPORT ---
Author Author Vilma PLUNKETT Organization [facility] Address [address] [place] [address] Care Team Providers Care Art Handler Name Role Phone DIMITRIOS, GENEVA Unavailable PROBLEMS Type Condition ICD9-CM Code WUN01-LT Code Onset Dates Condition S tatus SNOMED Code Problem Irregular menstrual cycle N92.6 Acti ve 41173754 Problem Elevated blood pressure reading without diagnosi s of hypertension 796.2 Active 960556070 Problem Chronic gingivitis, plaque induced K05.10 Active 74853947 Problem Tobacco abuse Z72.0 Active 233249 05 Problem Constipation, unspecified constipation type K59.00 Active 57750542 Problem Lower abdominal pain R10.30 Active 05561314 Problem Anxiety F41.9 Active 93600309 Problem Fatigue, unspecified type R53.83 Acti ve 33318664 ALLERGIES No Known Allergies ENCOUNTERS Encounter Location Date Diagnosis [facility] [address] [id number] [place] [id number] Feb, Acute cystitis without hematuria N30.00 [facility] [address] [id number] [place] [id number] Oct, [facility] [address] [id number] [address] [place] [address] [id number] Oct, Dental examination Z01.20 [facility] [address] [id number] [address] [place] [address] Oct, Dental examination Z01.20 an d Chronic gingivitis, plaque induced K05.10 [facility] [address] [id number] [address] [place] [address] Oct, Dental examination Z01.20 [facility] [address] [id number] [place] [id number] Jun, [facility] [place] [address] [id number] [place] [id number] May, [facility] [place] [address] [id number] [place] [id number] May, [facility] [place] [address] [id number] [place] [id number] Apr, [facility] [place] [address] [id number] [place] [id number] Apr, [facility] [place] [address] [id number] [place] [id number] Feb, Encounter for test, result unk nown Z32.00 [facility] [place] [address] [id number] [place] [id number] Feb, [facility] [place] [address] [id number] [place] [id number] Feb, [facility] [place] [address] [id number] [place] [id number] Feb, Encounter for test, result unk nown Z32.00 [facility] [place] [address] [id number] [place] [id number] Jan, [facility] [place] [address] [id number] [place] [id number] Jan, [facility] [place] [address] [id number] [place] [id number] Jan, [facility] [place] [address] [id number] [place] [id number] December, [facility] [place] [address] [id number] [place] [id number] December, [facility] [place] [address] [id number] [place] [id number] Nov, [facility] [place] [address] [id number] [place] [id number] Nov, [facility] [place] [address] [id number] [place] [id number] Nov, [facility] [place] [address] [id number] [place] [id number] Oct, [facility] [place] [address] [id number] [place] [id number] Oct, [facility] [place] [address] [id number] [place] [id number] Oct, [facility] [place] [address] [id number] [place] [id number] Oct, [facility] [place] [address] [id number] [place] [id number] Sep, [facility] [place] [address] [id number] [place] [id number] Sep, [facility] [place] [address] [id number] [place] [id number] Sep, [facility] [place] [address] [id number] [place] [id number] Sep, [facility] [place] [address] [id number] [place] [id number] Sep, [facility] [place] [address] [id number] [place] [id number] Aug, [facility] [place] [address] [id number] [place] [id number] Jul, [facility] [place] [address] [id number] [place] [id number] Jul, [facility] [place] [address] [id number] [place] [id number] Jun, [facility] [place] [address] [id number] [place] [id number] Jun, [facility] [place] [address] [id number] [place] [id number] Jun, [facility] [place] [address] [id number] [place] [id number] Jun, [facility] [place] [address] [id number] [place] [id number] Jun, [facility] [place] [address] [id number] [place] [id number] Jun, [facility] [place] [address] [id number] [place] [id number] May, [facility] [address] [id number] [place] [id number] May, [facility] [place] [address] [id number] [place] [id number] May, [facility] [address] [id number] [address] [place] [address] Apr, Bronchitis J40 [facility] [address] [id number] [place] [id number] Mar, [facility] [address] [id number] [place] [id number] Feb, [facility] [address] [id number] [place] [id number] Feb, [facility] [address] [id number] [place] [id number] Feb, Sore throat J02.9 and Ear pain, right H9 2.01 [facility] [address] [id number] [place] [id number] Jan, [facility] [address] [id number] [place] [id number] Jan, Viral syndrome B34.9 ; Other seasonal al lergic rhinitis J30.2 and Post-nasal drip R09.82 [facility] [address] [id number] [place] [id number] Jan, [facility] [address] [id number] [place] [id number] Nov, [facility] [address] [id number] [place] [id number] Oct, test positive Z32.01 [facility] [address] [id number] [address] [place] [phone] Oct, [facility] [address] [id number] [address] [place] [phone] Oct, [facility] [address] [id number] [address] [place] [address] Sep, Kidney stones N20.0 [facility] [address] [id number] [address] [place] [phone] Sep, [facility] [address] [id number] [address] [place] [address] Sep, Pelvic pain R10.2 ; Left low er quadrant pain R10.32 ; Vaginal discharge N89.8 ; Routine screening for STI (sexually transmitted infection) Z11.3 ; Unprotected sexual intercourse Z72.51 ; Kidney stone N20.0 ; History of dyspareunia in female Z87.42 and Screening for malignant neoplasm of cervix Z12.4 [place] [address] [address] Jun, Constipation, unspecified co nstipation type K59.00 ; Lower abdominal pain R10.30 ; Irregular menstrual cycle N92.6 ; Anxiety F41.9 ; Fatigue, unspecified type R53.83 and Tobacco abuse Z72.0 [facility] [place] [address] [id number] [place] [id number] Jun, [facility] [place] [address] [id number] [place] [id number] Jun, Nausea R11.0 [facility] [place] [address] [id number] [place] [id number] May, Alopecia L65.9 [facility] [place] [address] [id number] [place] [id number] May, [facility] [place] [address] [id number] [place] [id number] Apr, [facility] [place] [address] [id number] [place] [id number] Mar, [facility] [place] [address] [id number] [place] [id number] Mar, [facility] [place] [address] [id number] [place] [id number] Mar, [facility] [address] [id number] [address] [place] [address] Mar, test negative V72. 41 [facility] [place] [address] [id number] [place] [id number] Mar, [facility] [place] [address] [id number] [place] [id number] Mar, [facility] [place] [address] [id number] [place] [id number] Feb, [facility] [place] [address] [id number] [place] [id number] Feb, [facility] [place] [address] [id number] [place] [id number] Feb, [facility] [place] [address] [id number] [place] [id number] Feb, [facility] [place] [address] [id number] [place] [id number] Feb, [facility] [place] [address] [id number] [place] [id number] Feb, [facility] [place] [address] [id number] [place] [id number] Feb, [facility] [place] [address] [id number] [place] [id number] Feb, [facility] [place] [address] [id number] [place] [id number] Feb, [facility] [place] [address] [id number] [place] [id number] Feb, [facility] [place] [address] [id number] [place] [id number] Feb, [facility] [place] [address] [id number] [place] [id number] Feb, [facility] [place] [address] [id number] [place] [id number] Jan, [facility] [place] [address] [id number] [place] [id number] Jan, [facility] [place] [address] [id number] [place] [id number] Jan, [facility] [address] [id number] [place] [id number] Jan, Dental examination V72.2 [facility] [place] [address] [id number] [place] [id number] Jan, [facility] [place] [address] [id number] [place] [id number] Jan, [facility] [place] [address] [id number] [place] [id number] Jan, [facility] [place] [address] [id number] [place] [id number] Jan, [facility] [place] [address] [id number] [place] [id number] Jan, [facility] [place] [address] [id number] [place] [id number] Jan, [facility] [place] [address] [id number] [place] [id number] Jan, [facility] [place] [address] [id number] [place] [id number] Jan, [facility] [place] [address] [id number] [place] [id number] Jan, [facility] [place] [address] [id number] [place] [id number] Jan, [facility] [place] [address] [id number] [place] [id number] Jan, [facility] [place] [address] [id number] [place] [id number] Jan, [facility] [place] [address] [id number] [place] [id number] Jan, [facility] [place] [address] [id number] [place] [id number] Jan, [facility] [place] [address] [id number] [place] [id number] Jan, [facility] [place] [address] [id number] [place] [id number] Jan, [facility] [place] [address] [id number] [place] [id number] Jan, [facility] [place] [address] [id number] [place] [id number] Jan, [facility] [place] [address] [id number] [place] [id number] Jan, [facility] [place] [address] [id number] [place] [id number] Jan, [facility] [place] [address] [id number] [place] [id number] Jan, [facility] [place] [address] [id number] [place] [id number] Jan, [facility] [place] [address] [id number] [place] [id number] Jan, [facility] [place] [address] [id number] [place] [id number] Jan, [facility] [place] [address] [id number] [place] [id number] December, [facility] [place] [address] [id number] [place] [id number] December, [facility] [place] [address] [id number] [place] [id number] December, [facility] [place] [address] [id number] [place] [id number] December, [facility] [place] [address] [id number] [place] [id number] December, [facility] [place] [address] [id number] [place] [id number] December, [facility] [place] [address] [id number] [place] [id number] December, [facility] [place] [address] [id number] [place] [id number] December, [facility] [place] [address] [id number] [place] [id number] December, [facility] [place] [address] [id number] [place] [id number] December, [facility] [place] [address] [id number] [place] [id number] December, [facility] [place] [address] [id number] [place] [id number] December, [facility] [place] [address] [id number] [place] [id number] December, [facility] [place] [address] [id number] [place] [id number] December, [facility] [place] [address] [id number] [place] [id number] Nov, [facility] [place] [address] [id number] [place] [id number] Nov, [facility] [place] [address] [id number] [place] [id number] Nov, [facility] [place] [address] [id number] [place] [id number] Nov, [facility] [address] [facility] [id number] [address] [place] [phone] Nov, [facility] [address] [facility] [id number] [address] [place] [phone] Nov, [facility] [address] [facility] [id number] [address] [place] [phone] Sep, [facility] [address] [facility] [id number] [address] [place] [phone] Sep, [facility] [address] [facility] [id number] [address] [place] [id number] Jul, [facility] [address] [facility] [id number] [address] [place] [phone] Jul, [facility] [address] [facility] [id number] [address] [place] [id number] Jul, [facility] [address] [facility] [id number] [address] [place] [address] Jul, [facility] [address] [facility] [id number] [address] [place] [phone] Jul, [facility] [address] [facility] [id number] [address] [place] [address], [place] [address] Jul, [facility] [address] [id number] [address] [place] [address], [place] [address] Jun, [facility] [address] [id number] [address] [place] [address], [place] [address] Jun, [facility] [address] [id number] [address] [place] [address], [place] [address] Jun, [facility] [address] [id number] [address] [place] [address], [place] [address] Jun, [facility] [address] [id number] [address] [place] [address], [place] [address] May, [facility] [address] [id number] [address] [place] [address], [place] [address] May, [facility] [address] [id number] [address] [place] [address], [place] [address] Feb, [facility] [address] [id number] [address] [place] [address], [place] [address] Feb, [facility] [address] [id number] [address] [place] [address], [place] [address] Feb, [facility] [address] [id number] [address] [place] [address], [place] [address] Feb, [facility] [address] [id number] [address] [place] [address], [place] [address] Jan, [facility] [address] [id number] [address] [place] [address], [place] [address] Jan, [facility] [address] [id number] [address] [place] [address], [place] [address] Jan, [facility] [address] [id number] [address] [place] [address], [place] [address] Jan, [facility] [address] [id number] [address] [place] [address], [place] [address] December, [facility] [address] [id number] [address] [place] [address], [place] [address] December, [facility] [address] [id number] [address] [place] [address], [place] [address] December, [facility] [address] [id number] [address] [place] [address], [place] [address] December, [facility] [address] [id number] [address] [place] [address], [place] [address] December, [facility] [address] [id number] [address] [place] [address], [place] [address] December, [facility] [address] [id number] [address] [place] [address], [place] [address] December, [facility] [address] [id number] [address] [place] [address], [place] [address] December, [facility] [address] [id number] [address] [place] [address], [place] [address] December, [facility] [address] [id number] [address] [place] [address], [place] [address] December, [facility] [address] [id number] [address] [place] [address], [place] [address] December, [facility] [address] [id number] [address] [place] [address], [place] [address] December, [facility] [address] [id number] [address] [place] [address], [place] [address] December, [facility] [address] [id number] [address] [place] [address], [place] [address] December, [facility] [address] [id number] [address] [place] [address], [place] [address] December, [facility] [address] [id number] [address] [place] [address], [place] [address] December, [facility] [address] [id number] [address] [place] [address], [place] [address] December, [facility] [address] [id number] [facility] [place] [address] Nov, [facility] [address] [id number] [address] [place] [address], [place] [address] Nov, [facility] [address] [id number] [address] [place] [address], [place] [address] Nov, [facility] [address] [id number] [address] [place] [address], [place] [address] Nov, [facility] [address] [id number] [address] [place] [address], [place] [address] Nov, [facility] [address] [id number] [address] [place] [address], [place] [address] Nov, [facility] [address] [id number] [address] [place] [address], [place] [address] Nov, [facility] [address] [id number] [address] [place] [address], [place] [address] Nov, [facility] [address] [id number] [address] [place] [address], [place] [address] Nov, [facility] [address] [id number] [address] [place] [address], [place] [address] Nov, [facility] [address] [id number] [address] [place] [address], [place] [address] Nov, [facility] [address] [id number] [address] [place] [address], [place] [address] Nov, [facility] [address] [id number] [address] [place] [address], [place] [address] Nov, [facility] [address] [id number] [address] [place] [address], [place] [address] Nov, [facility] [address] [id number] [address] [place] [address], [place] [address] Nov, [facility] [address] [id number] [address] [place] [address], [place] [address] Nov, [facility] [address] [id number] [address] [place] [address], [place] [address] Oct, [facility] [address] [id number] [address] [place] [address], [place] [address] Oct, [facility] [address] [id number] [address] [place] [address], [place] [address] Oct, [facility] [address] [id number] [address] [place] [address], [place] [address] Oct, [facility] [address] [id number] [address] [place] [address], [place] [address] Oct, [facility] [address] [id number] [address] [place] [address], [place] [address] Oct, [facility] [address] [id number] [address] [place] [address], [place] [address] Oct, [facility] [address] [id number] [address] [place] [address], [place] [address] Oct, [facility] [address] [id number] [address] [place] [address], [place] [address] Sep, [facility] [address] [id number] [address] [place] [address], [place] [address] Sep, [facility] [address] [id number] [address] [place] [address], [place] [address] Sep, [facility] [address] [id number] [address] [place] [address], [place] [address] Sep, [facility] [address] [id number] [address] [place] [address], [place] [address] Sep, [facility] [address] [id number] [address] [place] [address], [place] [address] Sep, [facility] [address] [id number] [address] [place] [address], [place] [address] Sep, [facility] [address] [id number] [address] [place] [address], [place] [address] Sep, [facility] [address] [id number] [address] [place] [address], [place] [address] Sep, [facility] [address] [id number] [address] [place] [address], [place] [address] Sep, [facility] [address] [id number] [address] [place] [address], [place] [address] Aug, [facility] [address] [id number] [address] [place] [address], [place] [address] Aug, [facility] [address] [id number] [address] [place] [address], [place] [address] Jul, [facility] [address] [id number] [address] [place] [address], [place] [address] Jul, [facility] [address] [id number] [address] [place] [address], [place] [address] Jul, [facility] [address] [id number] [address] [place] [address], [place] [address] Jul, [facility] [address] [id number] [address] [place] [address], [place] [address] Jul, [facility] [address] [id number] [address] [place] [address], [place] [address] Jul, [facility] [address] [id number] [address] [place] [id number] Jun, [facility] [address] [id number] [address] [place] [id number] Jun, [facility] [address] [id number] [address] [place] [address], [place] [address] Jun, [facility] [address] [id number] [address] [place] [address], [place] [address] May, [facility] [address] [id number] [address] [place] [id number] December, [facility] [address] [id number] [address] [place] [id number] December, [facility] [address] [id number] [address] [place] [id number] Jan, [facility] [address] [id number] [address] [place] [id number] Jan, [facility] [address] [id number] [address] [place] [id number] Jan, [facility] [address] [id number] [address] [place] [id number] Jan, [facility] [address] [id number] [address] [place] [id number] December, [place] [address] [id number] [facility] [id number] December, [facility] [address] [address] [id number] [address] [place] [id number] December, [facility] [address] [id number] [address] [place] [id number] December, [facility] [address] [id number] [address] [place] [id number] December, [facility] [address] [id number] [address] [place] [id number] Oct, [facility] [address] [id number] [address] [place] [id number] Jul, [facility] [address] [id number] [address] [place] [phone] Jul, [facility] [address] [id number] [address] [place] [phone] Jun, IMMUNIZATIONS No Known Immunizations SOCIAL HISTORY Never Assessed REASON FOR VISIT libertad-8 mo preg. pain PLAN OF CARE Activity Details Follow Up prn Reason:fillings/new bite wings/ patient will call VITAL SIGNS Blood pressure systolic 116 mmHg 2017-11-02 Blood pressure diastolic 69 mmHg 2017-11-02 MEDICATIONS Medication Instructions Dosage Frequency Start Date End Date Duration S tatus Orally Once a day 1 tablet 24h Acti ve Zoloft Active Omeprazole Active RESULTS No Results PROCEDURES Procedure Date Ordered Result Body Site COMP ORAL EVALUATION - NEW/EST PT November 02, 2017 INSTRUCTIONS MEDICATIONS ADMINISTERED No Known Medications [...]
--- OUTSIDE RECORDS SUMMARY | 2019-11-24 00:51 | XMS REPORT ---
Author Author Vilma Louis Doctor Organization [facility] Address Unknown Phone Unavailable Care Team Providers Care Senior Physician Name Role Phone Migration, Doctor Unavailable Unavailable PROBLEMS Type Condition ICD9-CM Code QFO07-LD Code Onset Dates Condition S tatus SNOMED Code Problem Elevated blood pressure reading without diagnosi s of hypertension 796.2 Active 828562896 Problem Irregular menstrual cycle N92.6 Acti ve 09071718 Problem Tobacco abuse Z72.0 Active 416527 05 Problem Chronic gingivitis, plaque induced K05.10 Active 08672417 Problem Lower abdominal pain R10.30 Active 38787426 Problem Constipation, unspecified constipation type K59.00 Active 12581367 Problem Fatigue, unspecified type R53.83 Acti ve 52335363 Problem Anxiety F41.9 Active 09586932 ALLERGIES No Information ENCOUNTERS Encounter Location Date Diagnosis [facility] [address] [id number] [place] [id number] Feb, Acute cystitis without hematuria N30.00 [facility] [address] [id number] [place] [id number] Oct, [facility] [address] [id number] [address] [place] [address] [id number] Oct, Dental examination Z01.20 [facility] [address] [id number] [address] [place] [address] Oct, Dental examination Z01.20 an d Chronic gingivitis, plaque induced K05.10 [facility] [address] [id number] [address] [place] [phone] Oct, Dental examination Z01.20 [facility] [address] [id number] [place] [id number] Jun, [facility] [address] [id number] [place] [id number] May, [facility] [place] [address] [id number] [place] [id number] May, [facility] [place] [address] [id number] [place] [id number] Apr, [facility] [place] [address] [id number] [place] [id number] Apr, [facility] [place] [address] [id number] [place] [id number] Feb, Encounter for test, result unk nown Z32.00 [facility] [place] [address] [id number] [place] [id number] Feb, [facility] [place] [address] [id number] [place] [id number] Feb, [facility] [place] [address] [id number] [place] [id number] Feb, Encounter for test, result unk nown Z32.00 [facility] [place] [address] [id number] [place] [id number] Jan, [facility] [place] [address] [id number] [place] [id number] Jan, [facility] [place] [address] [id number] [place] [id number] Jan, [facility] [place] [address] [id number] [place] [id number] December, [facility] [place] [address] [id number] [place] [id number] December, [facility] [place] [address] [id number] [place] [id number] Nov, [facility] [place] [address] [id number] [place] [id number] Nov, [facility] [place] [address] [id number] [place] [id number] Nov, [facility] [place] [address] [id number] [place] [id number] Oct, [facility] [place] [address] [id number] [place] [id number] Oct, [facility] [place] [address] [id number] [place] [id number] Oct, [facility] [place] [address] [id number] [place] [id number] Oct, [facility] [place] [address] [id number] [place] [id number] Sep, [facility] [place] [address] [id number] [place] [id number] Sep, [facility] [place] [address] [id number] [place] [id number] Sep, [facility] [place] [address] [id number] [place] [id number] Sep, [facility] [place] [address] [id number] [place] [id number] Sep, [facility] [place] [address] [id number] [place] [id number] Aug, [facility] [place] [address] [id number] [place] [id number] Jul, [facility] [place] [address] [id number] [place] [id number] Jul, [facility] [place] [address] [id number] [place] [id number] Jun, [facility] [place] [address] [id number] [place] [id number] Jun, [facility] [place] [address] [id number] [place] [id number] Jun, [facility] [place] [address] [id number] [place] [id number] Jun, [facility] [place] [address] [id number] [place] [id number] Jun, [facility] [place] [address] [id number] [place] [id number] Jun, [facility] [place] [address] [id number] [place] [id number] May, [facility] [place] [address] [id number] [place] [id number] May, [facility] [address] [facility] [id number] [place] [id number] May, [facility] [address] [id number] [address] [place] [address] Apr, Bronchitis J40 [facility] [place] [address] [id number] [place] [id number] Mar, [facility] [address] [id number] [place] [id number] Feb, [facility] [address] [id number] [place] [id number] Feb, [facility] [address] [id number] [place] [address], [place] [id number] Feb, Sore throat J02.9 and Ear pain, right H9 2.01 [facility] [address] [id number] [place] [id number] Jan, [facility] [address] [id number] [place] [id number] Jan, Viral syndrome B34.9 ; Other seasonal al lergic rhinitis J30.2 and Post-nasal drip R09.82 [facility] [address] [facility] [id number] [place] [id number] Jan, [facility] [address] [facility] [id number] [place] [id number] Nov, [facility] [address] [facility] [id number] [place] [id number] Oct, test positive Z32.01 [facility] [address] [facility] [id number] [address] [place] [phone] Oct, [facility] [address] [id number] [address] [place] [address] Oct, [facility] [address] [id number] [address] [place] [address] Sep, Kidney stones N20.0 [facility] [address] [id number] [address] [place] [address] 18 Sep, 2015 [facility] [address] [id number] [address] [place] [id number] 11 Sep, 2015 Pelvic pain R10.2 ; Left low er quadrant pain R10.32 ; Vaginal discharge N89.8 ; Routine screening for STI (sexually transmitted infection) Z11.3 ; Unprotected sexual intercourse Z72.51 ; Kidney stone N20.0 ; History of dyspareunia in female Z87.42 and Screening for malignant neoplasm of cervix Z12.4 [facility] [address] [id number] [address] [place] [address] 12 Jun, 2015 Constipation, unspecified co nstipation type K59.00 ; Lower abdominal pain R10.30 ; Irregular menstrual cycle N92.6 ; Anxiety F41.9 ; Fatigue, unspecified type R53.83 and Tobacco abuse Z72.0 [facility] [place] [address] [id number] [place] [id number] Jun, [facility] [place] [address] [id number] [place] [id number] Jun, Nausea R11.0 [facility] [place] [address] [id number] [place] [id number] May, Alopecia L65.9 [facility] [place] [address] [id number] [place] [id number] May, [facility] [place] [address] [id number] [place] [id number] Apr, [facility] [place] [address] [id number] [place] [id number] Mar, [facility] [place] [address] [id number] [place] [id number] Mar, [facility] [place] [address] [id number] [place] [id number] Mar, [facility] [address] [facility] [id number] [address] [place] [phone] Mar, test negative V72. 41 [facility] [place] [address] [id number] [place] [id number] Mar, [facility] [place] [address] [id number] [place] [id number] Mar, [facility] [place] [address] [id number] [place] [id number] Feb, [facility] [place] [address] [id number] [place] [id number] Feb, [facility] [place] [address] [id number] [place] [id number] Feb, [facility] [place] [address] [id number] [place] [id number] Feb, [facility] [place] [address] [id number] [place] [id number] Feb, [facility] [place] [address] [id number] [place] [id number] Feb, [facility] [place] [address] [id number] [place] [id number] Feb, [facility] [place] [address] [id number] [place] [id number] Feb, [facility] [place] [address] [id number] [place] [id number] Feb, [facility] [place] [address] [id number] [place] [id number] Feb, [facility] [place] [address] [id number] [place] [id number] Feb, [facility] [place] [address] [id number] [place] [id number] Feb, [facility] [place] [address] [id number] [place] [id number] Jan, [facility] [place] [address] [id number] [place] [id number] Jan, [facility] [place] [address] [id number] [place] [id number] Jan, [facility] [address] [facility] [address] [id number] [place] [id number] Jan, Dental examination V72.2 [facility] [place] [address] [id number] [place] [id number] Jan, [facility] [place] [address] [id number] [place] [id number] Jan, [facility] [place] [address] [id number] [place] [id number] Jan, [facility] [place] [address] [id number] [place] [id number] Jan, [facility] [place] [address] [id number] [place] [id number] Jan, [facility] [place] [address] [id number] [place] [id number] Jan, [facility] [place] [address] [id number] [place] [id number] Jan, [facility] [place] [address] [id number] [place] [id number] Jan, [facility] [place] [address] [id number] [place] [id number] Jan, [facility] [place] [address] [id number] [place] [id number] Jan, [facility] [place] [address] [id number] [place] [id number] Jan, [facility] [place] [address] [id number] [place] [id number] Jan, [facility] [place] [address] [id number] [place] [id number] Jan, [facility] [place] [address] [id number] [place] [id number] Jan, [facility] [place] [address] [id number] [place] [id number] Jan, [facility] [place] [address] [id number] [place] [id number] Jan, [facility] [place] [address] [id number] [place] [id number] Jan, [facility] [place] [address] [id number] [place] [id number] Jan, [facility] [place] [address] [id number] [place] [id number] Jan, [facility] [place] [address] [id number] [place] [id number] Jan, [facility] [place] [address] [id number] [place] [id number] Jan, [facility] [place] [address] [id number] [place] [id number] Jan, [facility] [place] [address] [id number] [place] [id number] Jan, [facility] [place] [address] [id number] [place] [id number] Jan, [facility] [place] [address] [id number] [place] [id number] December, [facility] [place] [address] [id number] [place] [id number] December, [facility] [place] [address] [id number] [place] [id number] December, [facility] [place] [address] [id number] [place] [id number] December, [facility] [place] [address] [id number] [place] [id number] December, [facility] [place] [address] [id number] [place] [id number] December, [facility] [place] [address] [id number] [place] [id number] December, [facility] [place] [address] [id number] [place] [id number] December, [facility] [place] [address] [id number] [place] [id number] December, [facility] [place] [address] [id number] [place] [id number] December, [facility] [place] [address] [id number] [place] [id number] December, [facility] [place] [address] [id number] [place] [id number] December, [facility] [place] [address] [id number] [place] [id number] December, [facility] [place] [address] [id number] [place] [id number] December, [facility] [place] [address] [id number] [place] [id number] Nov, [facility] [place] [address] [id number] [place] [id number] Nov, [facility] [place] [address] [id number] [place] [id number] Nov, [facility] [place] [address] [id number] [place] [id number] Nov, [facility] [address] [id number] [address] [place] [phone] Nov, [facility] [address] [facility] [id number] [address] [place] [id number] Nov, [facility] [address] [id number] [address] [place] [phone] Sep, [facility] [address] [facility] [id number] [address] [place] [phone] Sep, [facility] [address] [facility] [id number] [address] [place] [phone] Jul, [facility] [address] [facility] [id number] [address] [place] [phone] Jul, [facility] [address] [id number] [address] [place] [phone] Jul, [facility] [address] [facility] [id number] [address] [place] [id number] Jul, [facility] [address] [facility] [id number] [address] [place] [phone] Jul, [facility] [address] [facility] [id number] [address] [place] [id number] Jul, [facility] [address] [id number] [address] [place] [address], [place] [address] Jun, [facility] [address] [id number] [address] [place] [address], [place] [address] Jun, [facility] [address] [id number] [address] [place] [address], [place] [address] Jun, [facility] [address] [id number] [address] [place] [address], [place] [address] Jun, [facility] [address] [id number] [address] [place] [address], [place] [address] May, [facility] [address] [id number] [address] [place] [address], [place] [address] May, [facility] [address] [id number] [address] [place] [address], [place] [address] Feb, [facility] [address] [id number] [address] [place] [address], [place] [address] Feb, [facility] [address] [id number] [address] [place] [address], [place] [address] Feb, [facility] [address] [id number] [address] [place] [address], [place] [address] Feb, [facility] [address] [id number] [address] [place] [address], [place] [address] Jan, [facility] [address] [id number] [address] [place] [address], [place] [address] Jan, [facility] [address] [id number] [address] [place] [address], [place] [address] Jan, [facility] [address] [id number] [address] [place] [address], [place] [address] Jan, [facility] [address] [id number] [address] [place] [address], [place] [address] December, [facility] [address] [id number] [address] [place] [address], [place] [address] December, [facility] [address] [id number] [address] [place] [address], [place] [address] December, [facility] [address] [id number] [address] [place] [address], [place] [address] December, [facility] [address] [id number] [address] [place] [address], [place] [address] December, [facility] [address] [id number] [address] [place] [address], [place] [address] December, [facility] [address] [id number] [address] [place] [address], [place] [address] December, [facility] [address] [id number] [address] [place] [address], [place] [address] December, [facility] [address] [id number] [address] [place] [address], [place] [address] December, [facility] [address] [id number] [address] [place] [address], [place] [address] December, [facility] [address] [id number] [address] [place] [address], [place] [address] December, [facility] [address] [id number] [address] [place] [address], [place] [address] December, [facility] [address] [id number] [address] [place] [address], [place] [address] December, [facility] [address] [id number] [address] [place] [address], [place] [address] December, [facility] [address] [id number] [address] [place] [address], [place] [address] December, [facility] [address] [id number] [address] [place] [address], [place] [address] December, [facility] [address] [id number] [address] [place] [address], [place] [address] December, [facility] [address] [id number] [address] [place] [address], [place] [address] Nov, [facility] [address] [id number] [facility] [address] Nov, [facility] [address] [id number] [address] [place] [address], [place] [address] Nov, [facility] [address] [id number] [address] [place] [address], [place] [address] Nov, [facility] [address] [id number] [address] [place] [address], [place] [address] Nov, [facility] [address] [id number] [address] [place] [address], [place] [address] Nov, [facility] [address] [id number] [address] [place] [address], [place] [address] Nov, [facility] [address] [id number] [address] [place] [address], [place] [address] Nov, [facility] [address] [id number] [address] [place] [address], [place] [address] Nov, [facility] [address] [id number] [address] [place] [address], [place] [address] Nov, [facility] [address] [id number] [address] [place] [address], [place] [address] Nov, [facility] [address] [id number] [address] [place] [address], [place] [address] Nov, [facility] [address] [id number] [address] [place] [address], [place] [address] Nov, [facility] [address] [id number] [address] [place] [address], [place] [address] Nov, [facility] [address] [id number] [address] [place] [address], [place] [address] Nov, [facility] [address] [id number] [address] [place] [address], [place] [address] Nov, [facility] [address] [id number] [facility] [address] Oct, [facility] [address] [id number] [address] [place] [address], [place] [address] Oct, [facility] [address] [id number] [address] [place] [address], [place] [address] Oct, [facility] [address] [id number] [address] [place] [address], [place] [address] Oct, [facility] [address] [id number] [address] [place] [address], [place] [address] Oct, [facility] [address] [id number] [address] [place] [address], [place] [address] Oct, [facility] [address] [id number] [address] [place] [address], [place] [address] Oct, [facility] [address] [id number] [address] [place] [address], [place] [address] Oct, [facility] [address] [id number] [address] [place] [address], [place] [address] Sep, [facility] [address] [id number] [address] [place] [address], [place] [address] Sep, [facility] [address] [id number] [address] [place] [address], [place] [address] Sep, [facility] [address] [id number] [address] [place] [address], [place] [address] Sep, [facility] [address] [id number] [address] [place] [address], [place] [address] Sep, [facility] [address] [id number] [address] [place] [address], [place] [address] Sep, [facility] [address] [id number] [address] [place] [address], [place] [address] Sep, [facility] [address] [id number] [address] [address] Sep, [facility] [address] [id number] [address] [place] [address], [place] [address] Sep, [facility] [address] [id number] [address] [place] [address], [place] [address] Sep, [facility] [address] [id number] [address] [place] [address], [place] [address] Aug, [facility] [address] [id number] [address] [place] [address], [place] [address] Aug, [facility] [address] [id number] [address] [place] [address], [place] [address] Jul, [facility] [address] [id number] [address] [place] [address], [place] [address] Jul, [facility] [address] [id number] [address] [place] [address], [place] [address] Jul, [facility] [address] [id number] [address] [place] [address], [place] [address] Jul, [facility] [address] [id number] [address] [place] [id number] Jul, [facility] [address] [id number] [address] [place] [address], [place] [address] Jul, [facility] [address] [id number] [address] [place] [id number] Jun, [facility] [address] [id number] [address] [place] [id number] Jun, [facility] [address] [id number] [address] [place] [id number] Jun, [facility] [address] [id number] [address] [place] [id number] May, [facility] [address] [id number] [address] [place] [address], [place] [address] December, [facility] [address] [id number] [address] [place] [id number] December, [facility] [address] [id number] [address] [place] [id number] Jan, [facility] [address] [id number] [address] [place] [id number] Jan, [facility] [address] [id number] [address] [place] [id number] Jan, [facility] [address] [id number] [address] [place] [id number] Jan, [facility] [address] [id number] [address] [place] [id number] December, [address] [id number] [place] [id number] December, [facility] [address] [id number] [address] [place] [id number] December, [facility] [address] [id number] [address] [place] [id number] December, [facility] [address] [id number] [address] [place] [id number] December, [facility] [address] [id number] [address] [place] [phone] Oct, [facility] [address] [id number] [address] [place] [phone] Jul, [facility] [address] [id number] [address] [place] [phone] Jul, [facility] [address] [id number] [address] [place] [phone] Jun, IMMUNIZATIONS No Known Immunizations SOCIAL HISTORY Never Assessed REASON FOR VISIT EMR-[facility] [place] PLAN OF CARE VITAL SIGNS MEDICATIONS No [...]
--- OUTSIDE RECORDS SUMMARY | 2019-11-24 00:51 | XMS REPORT ---
Author Author Vilma Louis Doctor Organization [facility] Address Unknown Phone Unavailable Care Team Providers Care Lens Polisher Name Role Phone Migration, Doctor Unavailable Unavailable PROBLEMS Type Condition ICD9-CM Code UVL41-VI Code Onset Dates Condition S tatus SNOMED Code Problem Elevated blood pressure reading without diagnosi s of hypertension 796.2 Active 055005037 Problem Irregular menstrual cycle N92.6 Acti ve 09864876 Problem Tobacco abuse Z72.0 Active 424796 05 Problem Chronic gingivitis, plaque induced K05.10 Active 19152580 Problem Lower abdominal pain R10.30 Active 77476740 Problem Constipation, unspecified constipation type K59.00 Active 42902681 Problem Fatigue, unspecified type R53.83 Acti ve 84942305 Problem Anxiety F41.9 Active 93479110 ALLERGIES No Information ENCOUNTERS Encounter Location Date Diagnosis [facility] [address] [facility] [place] [id number] [address] [place] [phone] December, UTI symptoms R39.9 and Acute cystitis with hematuria N30.01 [facility] [address] [facility] [id number] [place] [id number] 03 Feb, 2018 Acute cystitis without hematuria N30.00 [facility] [id number] [place] [id number] 13 Oct, 2017 [facility] [address] [id number] [address] [place] [address] [id number] Oct, Dental examination Z01.20 [facility] [address] [facility] [place] [id number] [address] [place] [id number] 08 Oct, 2017 Dental examination Z01.20 an d Chronic gingivitis, plaque induced K05.10 [facility] [address] [facility] [place] [id number] [address] [place] [address] Oct, Dental examination Z01.20 [facility] [address] [id number] [place] [id number] Jun, [facility] [place] [address] [id number] [place] [id number] May, [facility] [place] [address] [id number] [place] [id number] May, [facility] [place] [address] [id number] [place] [id number] Apr, [facility] [place] [address] [id number] [place] [id number] Apr, [facility] [place] [address] [id number] [place] [id number] Feb, Encounter for test, result unk nown Z32.00 [facility] [place] [address] [id number] [place] [id number] Feb, [facility] [place] [address] [id number] [place] [id number] Feb, [facility] [place] [address] [id number] [place] [id number] Feb, Encounter for test, result unk nown Z32.00 [facility] [place] [address] [id number] [place] [id number] Jan, [facility] [place] [address] [id number] [place] [id number] Jan, [facility] [place] [address] [id number] [place] [id number] Jan, [facility] [place] [address] [id number] [place] [id number] December, [facility] [place] [address] [id number] [place] [id number] December, [facility] [place] [address] [id number] [place] [id number] Nov, [facility] [place] [address] [id number] [place] [id number] Nov, [facility] [place] [address] [id number] [place] [id number] Nov, [facility] [place] [address] [id number] [place] [id number] Oct, [facility] [place] [address] [id number] [place] [id number] Oct, [facility] [place] [address] [id number] [place] [id number] Oct, [facility] [place] [address] [id number] [place] [id number] Oct, [facility] [place] [address] [id number] [place] [id number] Sep, [facility] [place] [address] [id number] [place] [id number] Sep, [facility] [place] [address] [id number] [place] [id number] Sep, [facility] [place] [address] [id number] [place] [id number] Sep, [facility] [place] [address] [id number] [place] [id number] Sep, [facility] [place] [address] [id number] [place] [id number] Aug, [facility] [place] [address] [id number] [place] [id number] Jul, [facility] [place] [address] [id number] [place] [id number] Jul, [facility] [place] [address] [id number] [place] [id number] Jun, [facility] [place] [address] [id number] [place] [id number] Jun, [facility] [place] [address] [id number] [place] [id number] Jun, [facility] [place] [address] [id number] [place] [id number] Jun, [facility] [place] [address] [id number] [place] [id number] Jun, [facility] [place] [address] [id number] [place] [id number] Jun, [facility] [place] [address] [id number] [place] [id number] May, [facility] [place] [address] [id number] [place] [id number] May, [facility] [place] [address] [id number] [place] [id number] May, [facility] [address] [facility] [place] [id number] [address] [place] [address] Apr, Bronchitis J40 [facility] [place] [address] [id number] [place] [id number] Mar, [facility] [place] [address] [id number] [place] [id number] Feb, [facility] [place] [address] [id number] [place] [id number] Feb, [facility] [place] [address] [id number] [place] [id number] Feb, Sore throat J02.9 and Ear pain, right H9 2.01 [facility] [place] [address] [id number] [place] [id number] Jan, [facility] [place] [address] [id number] [place] [id number] Jan, Viral syndrome B34.9 ; Other seasonal al lergic rhinitis J30.2 and Post-nasal drip R09.82 [facility] [place] [address] [id number] [place] [id number] Jan, [facility] [place] [address] [id number] [place] [id number] Nov, [facility] [place] [address] [id number] [place] [id number] Oct, test positive Z32.01 [facility] [address] [facility] [place] [id number] [address] [place] [address] Oct, [facility] [address] [id number] [address] [place] [address] Oct, [facility] [address] [id number] [address] [place] [address] 19 Sep, 2015 Kidney stones N20.0 [facility] [address] [address] 18 Sep, 2015 [facility] [address] [address] 11 Sep, 2015 Pelvic pain R10.2 ; Left low er quadrant pain R10.32 ; Vaginal discharge N89.8 ; Routine screening for STI (sexually transmitted infection) Z11.3 ; Unprotected sexual intercourse Z72.51 ; Kidney stone N20.0 ; History of dyspareunia in female Z87.42 and Screening for malignant neoplasm of cervix Z12.4 [place] [address] [address] Jun, Constipation, unspecified co nstipation type K59.00 ; Lower abdominal pain R10.30 ; Irregular menstrual cycle N92.6 ; Anxiety F41.9 ; Fatigue, unspecified type R53.83 and Tobacco abuse Z72.0 [facility] [place] [address] [id number] [place] [id number] Jun, [facility] [place] [address] [id number] [place] [id number] Jun, Nausea R11.0 [facility] [place] [address] [id number] [place] [id number] May, Alopecia L65.9 [facility] [place] [address] [id number] [place] [id number] May, [facility] [place] [address] [id number] [place] [id number] Apr, [facility] [place] [address] [id number] [place] [id number] Mar, [facility] [place] [address] [id number] [place] [id number] Mar, [facility] [place] [address] [id number] [place] [id number] Mar, [facility] [address] [id number] [place] [address] Mar, test negative V72. 41 [facility] [place] [address] [id number] [place] [id number] Mar, [facility] [place] [address] [id number] [place] [id number] Mar, [facility] [place] [address] [id number] [place] [id number] Feb, [facility] [place] [address] [id number] [place] [id number] Feb, [facility] [place] [address] [id number] [place] [id number] Feb, [facility] [place] [address] [id number] [place] [id number] Feb, [facility] [place] [address] [id number] [place] [id number] Feb, [facility] [place] [address] [id number] [place] [id number] Feb, [facility] [place] [address] [id number] [place] [id number] Feb, [facility] [place] [address] [id number] [place] [id number] Feb, [facility] [place] [address] [id number] [place] [id number] Feb, [facility] [place] [address] [id number] [place] [id number] Feb, [facility] [place] [address] [id number] [place] [id number] Feb, [facility] [place] [address] [id number] [place] [id number] Feb, [facility] [place] [address] [id number] [place] [id number] Jan, [facility] [place] [address] [id number] [place] [id number] Jan, [facility] [place] [address] [id number] [place] [id number] Jan, [facility] [address] [id number] [place] [id number] Jan, Dental examination V72.2 [facility] [place] [address] [id number] [place] [id number] Jan, [facility] [place] [address] [id number] [place] [id number] Jan, [facility] [place] [address] [id number] [place] [id number] Jan, [facility] [place] [address] [id number] [place] [id number] Jan, [facility] [place] [address] [id number] [place] [id number] Jan, [facility] [place] [address] [id number] [place] [id number] Jan, [facility] [place] [address] [id number] [place] [id number] Jan, [facility] [place] [address] [id number] [place] [id number] Jan, [facility] [place] [address] [id number] [place] [id number] Jan, [facility] [place] [address] [id number] [place] [id number] Jan, [facility] [place] [address] [id number] [place] [id number] Jan, [facility] [place] [address] [id number] [place] [id number] Jan, [facility] [place] [address] [id number] [place] [id number] Jan, [facility] [place] [address] [id number] [place] [id number] Jan, [facility] [place] [address] [id number] [place] [id number] Jan, [facility] [place] [address] [id number] [place] [id number] Jan, [facility] [place] [address] [id number] [place] [id number] Jan, [facility] [place] [address] [id number] [place] [id number] Jan, [facility] [place] [address] [id number] [place] [id number] Jan, [facility] [place] [address] [id number] [place] [id number] Jan, [facility] [place] [address] [id number] [place] [id number] Jan, [facility] [place] [address] [id number] [place] [id number] Jan, [facility] [place] [address] [id number] [place] [id number] Jan, [facility] [place] [address] [id number] [place] [id number] Jan, [facility] [place] [address] [id number] [place] [id number] December, [facility] [place] [address] [id number] [place] [id number] December, [facility] [place] [address] [id number] [place] [id number] December, [facility] [place] [address] [id number] [place] [id number] December, [facility] [place] [address] [id number] [place] [id number] December, [facility] [place] [address] [id number] [place] [id number] December, [facility] [place] [address] [id number] [place] [id number] December, [facility] [place] [address] [id number] [place] [id number] December, [facility] [place] [address] [id number] [place] [id number] December, [facility] [place] [address] [id number] [place] [id number] December, [facility] [place] [address] [id number] [place] [id number] December, [facility] [place] [address] [id number] [place] [id number] December, [facility] [place] [address] [id number] [place] [id number] December, [facility] [place] [address] [id number] [place] [id number] December, [facility] [place] [address] [id number] [place] [id number] Nov, [facility] [place] [address] [id number] [place] [id number] Nov, [facility] [place] [address] [id number] [place] [id number] Nov, [facility] [place] [address] [id number] [place] [id number] Nov, [facility] [address] [facility] [place] [id number] [address] [place] [address] Nov, [facility] [address] [facility] [place] [id number] [address] [place] [address] Nov, [facility] [address] [facility] [place] [id number] [address] [place] [address] Sep, [facility] [address] [facility] [place] [id number] [address] [place] [address] Sep, [facility] [address] [facility] [place] [id number] [address] [place] [address] Jul, [facility] [address] [facility] [place] [id number] [address] [place] [address] Jul, [facility] [address] [facility] [place] [id number] [address] [place] [address] Jul, [facility] [address] [facility] [place] [id number] [address] [place] [address] Jul, [facility] [address] [facility] [place] [id number] [address] [place] [address] Jul, [facility] [address] [id number] [address] [place] [address], [place] [address] Jul, [facility] [address] [id number] [address] [place] [address], [place] [address] Jun, [facility] [address] [id number] [address] [place] [address], [place] [address] Jun, [facility] [address] [id number] [address] [place] [address], [place] [address] Jun, [facility] [address] [id number] [address] [place] [address], [place] [address] Jun, [facility] [address] [id number] [address] [place] [address], [place] [address] May, [facility] [address] [id number] [address] [place] [address], [place] [address] May, [facility] [address] [id number] [address] [place] [address], [place] [address] Feb, [facility] [address] [id number] [address] [place] [address], [place] [address] Feb, [facility] [address] [id number] [address] [place] [address], [place] [address] Feb, [facility] [address] [id number] [address] [place] [address], [place] [address] Feb, [facility] [address] [id number] [address] [place] [address], [place] [address] Jan, [facility] [address] [id number] [address] [place] [address], [place] [address] Jan, [facility] [address] [id number] [address] [place] [address], [place] [address] Jan, [facility] [address] [id number] [address] [place] [address], [place] [address] Jan, [facility] [address] [id number] [address] [place] [address], [place] [address] December, [facility] [address] [id number] [facility] [place] [address] December, [facility] [address] [id number] [address] [place] [address], [place] [address] December, [facility] [address] [id number] [address] [place] [address], [place] [address] December, [facility] [address] [id number] [address] [place] [address], [place] [address] December, [facility] [address] [id number] [address] [place] [address], [place] [address] December, [facility] [address] [id number] [address] [place] [address], [place] [address] December, [facility] [address] [id number] [address] [place] [address], [place] [address] December, [facility] [address] [id number] [address] [place] [address], [place] [address] December, [facility] [address] [id number] [address] [place] [address], [place] [address] December, [facility] [address] [id number] [address] [place] [address], [place] [address] December, [facility] [address] [id number] [address] [place] [address], [place] [address] December, [facility] [address] [id number] [address] [place] [address], [place] [address] December, [facility] [address] [id number] [address] [place] [address], [place] [address] December, [facility] [address] [id number] [address] [place] [address], [place] [address] December, [facility] [address] [id number] [address] [place] [address], [place] [address] December, [facility] [address] [id number] [facility] [place] [address] December, [facility] [address] [id number] [address] [place] [address], [place] [address] Nov, [facility] [address] [id number] [address] [place] [address], [place] [address] Nov, [facility] [address] [id number] [address] [place] [address], [place] [address] Nov, [facility] [address] [id number] [address] [place] [address], [place] [address] Nov, [facility] [address] [id number] [address] [place] [address], [place] [address] Nov, [facility] [address] [id number] [address] [place] [address], [place] [address] Nov, [facility] [address] [id number] [address] [place] [address], [place] [address] Nov, [facility] [address] [id number] [address] [place] [address], [place] [address] Nov, [facility] [address] [id number] [address] [place] [address], [place] [address] Nov, [facility] [address] [id number] [address] [place] [address], [place] [address] Nov, [facility] [address] [id number] [address] [place] [address], [place] [address] Nov, [facility] [address] [id number] [address] [place] [address], [place] [address] Nov, [facility] [address] [id number] [address] [place] [address], [place] [address] Nov, [facility] [address] [id number] [address] [place] [address], [place] [address] Nov, [facility] [address] [id number] [address] [place] [address], [place] [address] Nov, [facility] [address] [id number] [facility] [place] [address] Nov, [facility] [address] [id number] [address] [place] [address], [place] [address] Oct, [facility] [address] [id number] [facility] [place] [address] Oct, [facility] [address] [id number] [address] [place] [address], [place] [address] Oct, [facility] [address] [id number] [address] [place] [address], [place] [address] Oct, [facility] [address] [id number] [address] [place] [address], [place] [address] Oct, [facility] [address] [id number] [address] [place] [address], [place] [address] Oct, [facility] [address] [id number] [address] [place] [address], [place] [address] Oct, [facility] [address] [id number] [address] [place] [address], [place] [address] Oct, [facility] [address] [id number] [address] [place] [address], [place] [address] Sep, [facility] [address] [id number] [address] [place] [address], [place] [address] Sep, [facility] [address] [id number] [address] [place] [address], [place] [address] Sep, [facility] [address] [id number] [address] [place] [address], [place] [address] Sep, [facility] [address] [id number] [address] [place] [address], [place] [address] Sep, [facility] [address] [id number] [address] [place] [address], [place] [address] Sep, [facility] [address] [id number] [address] [place] [address], [place] [address] Sep, [facility] [address] [id number] [address] [place] [address], [place] [address] Sep, [facility] [address] [id number] [address] [place] [address], [place] [address] Sep, [facility] [address] [id number] [address] [place] [address], [place] [address] Sep, [facility] [address] [id number] [address] [place] [address], [place] [address] Aug, [facility] [address] [id number] [address] [place] [address], [place] [address] Aug, [facility] [address] [id number] [address] [place] [address], [place] [address] Jul, [facility] [address] [id number] [address] [place] [address], [place] [address] Jul, [facility] [address] [id number] [address] [place] [address], [place] [address] Jul, [facility] [address] [id number] [address] [place] [address], [place] [address] Jul, [facility] [address] [id number] [address] [place] [address], [place] [address] Jul, [facility] [address] [id number] [address] [place] [address], [place] [address] Jul, [facility] [address] [id number] [address] [place] [address], [place] [address] Jun, [facility] [address] [id number] [address] [place] [address], [place] [address] Jun, [facility] [address] [id number] [address] [place] [address], [place] [address] Jun, [facility] [address] [id number] [address] [address] May, [facility] [address] [id number] [address] [place] [address] December, [facility] [address] [id number] [address] [place] [id number] December, [facility] [address] [id number] [address] [place] [id number] Jan, [facility] [address] [id number] [address] [place] [address] Jan, [facility] [address] [id number] [address] [place] [id number] Jan, [facility] [address] [id number] [address] [place] [id number] Jan, [facility] [address] [id number] [address] [place] [id number] December, [address] [id number] [place] [id number] December, [facility] [address] [id number] [address] [place] [id number] December, [facility] [address] [id number] [address] [place] [id number] December, [facility] [address] [id number] [address] [place] [id number] December, [facility] [address] [id number] [address] [place] [id number] Oct, [facility] [address] [id number] [address] [place] [id number] Jul, [facility] [address] [id number] [address] [place] [id number] Jul, [facility] [address] [id number] [address] [place] [id number] Jun, IMMUNIZATIONS No Known Immunizations SOCIAL HISTORY Never Assessed REASON FOR VISIT EMR-[facility] [place]AN OF CARE VITAL SIGNS MEDICATIONS No [...]
--- OUTSIDE RECORDS SUMMARY | 2019-11-24 00:51 | XMS REPORT ---
Author Author Vilma KAY Organization [facility] Address [address] [place] [address] Care Team Providers Care Fund Accounting Manager Name Role Phone ELIZA YOUNG Unavailable PROBLEMS Type Condition ICD9-CM Code [id number] Code Onset Dates Condition S tatus SNOMED Code Problem Irregular menstrual cycle N92.6 Acti ve 89425629 Problem Elevated blood pressure reading without diagnosi s of hypertension 796.2 Active 484333202 Problem Chronic gingivitis, plaque induced K05.10 Active 66550285 Problem Tobacco abuse Z72.0 Active 978034 05 Problem Constipation, unspecified constipation type K59.00 Active 62993209 Problem Lower abdominal pain R10.30 Active 45831871 Problem Anxiety F41.9 Active 83377730 Problem Fatigue, unspecified type R53.83 Acti ve 78033430 ALLERGIES No Known Allergies ENCOUNTERS Encounter Location Date Diagnosis [facility] [address] [id number] [place] [id number] Feb, Acute cystitis without hematuria N30.00 [facility] [address] [id number] [place] [id number] Oct, [facility] [address] [id number] [address] [place] [id number] Oct, Dental examination Z01.20 [facility] [address] [id number] [address] [place] [address] Oct, Dental examination Z01.20 an d Chronic gingivitis, plaque induced K05.10 [facility] [address] [facility] [id number] [address] [place] [address] Oct, Dental examination Z01.20 [facility] [address] [id number] [place] [id number] Jun, [facility] [place] [address] [id number] [place] [id number] May, [facility] [place] [address] [id number] [place] [id number] May, [facility] [place] [address] [id number] [place] [id number] Apr, [facility] [place] [address] [id number] [place] [id number] Apr, [facility] [place] [address] [id number] [place] [id number] Feb, Encounter for test, result unk nown Z32.00 [facility] [place] [address] [id number] [place] [id number] Feb, [facility] [place] [address] [id number] [place] [id number] Feb, [facility] [place] [address] [id number] [place] [id number] Feb, Encounter for test, result unk nown Z32.00 [facility] [place] [address] [id number] [place] [id number] Jan, [facility] [place] [address] [id number] [place] [id number] Jan, [facility] [place] [address] [id number] [place] [id number] Jan, [facility] [place] [address] [id number] [place] [id number] December, [facility] [place] [address] [id number] [place] [id number] December, [facility] [place] [address] [id number] [place] [id number] Nov, [facility] [place] [address] [id number] [place] [id number] Nov, [facility] [place] [address] [id number] [place] [id number] Nov, [facility] [place] [address] [id number] [place] [id number] Oct, [facility] [place] [address] [id number] [place] [id number] Oct, [facility] [place] [address] [id number] [place] [id number] Oct, [facility] [place] [address] [id number] [place] [id number] Oct, [facility] [place] [address] [id number] [place] [id number] Sep, [facility] [place] [address] [id number] [place] [id number] Sep, [facility] [place] [address] [id number] [place] [id number] Sep, [facility] [place] [address] [id number] [place] [id number] Sep, [facility] [place] [address] [id number] [place] [id number] Sep, [facility] [place] [address] [id number] [place] [id number] Aug, [facility] [place] [address] [id number] [place] [id number] Jul, [facility] [place] [address] [id number] [place] [id number] Jul, [facility] [place] [address] [id number] [place] [id number] Jun, [facility] [place] [address] [id number] [place] [id number] Jun, [facility] [place] [address] [id number] [place] [id number] Jun, [facility] [place] [address] [id number] [place] [id number] Jun, [facility] [place] [address] [id number] [place] [id number] Jun, [facility] [place] [address] [id number] [place] [id number] Jun, [facility] [place] [address] [id number] [place] [id number] May, [facility] [place] [address] [id number] [place] [id number] May, [facility] [place] [address] [id number] [place] [id number] May, [facility] [address] [facility] [id number] [address] [place] [address] Apr, Bronchitis J40 [facility] [place] [address] [id number] [place] [id number] Mar, [facility] [place] [address] [id number] [place] [id number] Feb, [facility] [place] [address] [id number] [place] [id number] Feb, [facility] [place] [address] [id number] [place] [id number] Feb, Sore throat J02.9 and Ear pain, right H9 2.01 [facility] [place] [address] [id number] [place] [id number] Jan, [facility] [place] [address] [id number] [place] [id number] Jan, Viral syndrome B34.9 ; Other seasonal al lergic rhinitis J30.2 and Post-nasal drip R09.82 [facility] [place] [address] [id number] [place] [id number] Jan, [facility] [place] [address] [id number] [place] [id number] Nov, [facility] [place] [address] [id number] [place] [id number] Oct, test positive Z32.01 [facility] [address] [facility] [id number] [address] [place] [address] Oct, [facility] [address] [place] [id number] [address] [place] [address] Oct, [facility] [address] [place] [place] [id number] [address] [place] [address] Sep, Kidney stones N20.0 [facility] [address] [facility] [id number] [address] [place] [address] 18 Sep, 2015 [facility] [address] [place] [place] [id number] [address] [place] [address] Sep, Pelvic pain R10.2 ; Left low er quadrant pain R10.32 ; Vaginal discharge N89.8 ; Routine screening for STI (sexually transmitted infection) Z11.3 ; Unprotected sexual intercourse Z72.51 ; Kidney stone N20.0 ; History of dyspareunia in female Z87.42 and Screening for malignant neoplasm of cervix Z12.4 [place] [address] [facility] [id number] [address] [place] [address] Jun, Constipation, unspecified co nstipation type K59.00 ; Lower abdominal pain R10.30 ; Irregular menstrual cycle N92.6 ; Anxiety F41.9 ; Fatigue, unspecified type R53.83 and Tobacco abuse Z72.0 [facility] [place] [address] [id number] [place] [id number] Jun, [facility] [place] [address] [id number] [place] [id number] Jun, Nausea R11.0 [facility] [place] [address] [id number] [place] [id number] May, Alopecia L65.9 [facility] [place] [address] [id number] [place] [id number] May, [facility] [place] [address] [id number] [place] [id number] Apr, [facility] [place] [address] [id number] [place] [id number] Mar, [facility] [place] [address] [id number] [place] [id number] Mar, [facility] [place] [address] [id number] [place] [id number] Mar, [facility] [address] [facility] [id number] [address] [place] [address] Mar, test negative V72. 41 [facility] [place] [address] [id number] [place] [id number] Mar, [facility] [place] [address] [id number] [place] [id number] Mar, [facility] [place] [address] [id number] [place] [id number] Feb, [facility] [place] [address] [id number] [place] [id number] Feb, [facility] [place] [address] [id number] [place] [id number] Feb, [facility] [place] [address] [id number] [place] [id number] Feb, [facility] [place] [address] [id number] [place] [id number] Feb, [facility] [place] [address] [id number] [place] [id number] Feb, [facility] [place] [address] [id number] [place] [id number] Feb, [facility] [place] [address] [id number] [place] [id number] Feb, [facility] [place] [address] [id number] [place] [id number] Feb, [facility] [place] [address] [id number] [place] [id number] Feb, [facility] [place] [address] [id number] [place] [id number] Feb, [facility] [place] [address] [id number] [place] [id number] Feb, [facility] [place] [address] [id number] [place] [id number] Jan, [facility] [place] [address] [id number] [place] [id number] Jan, [facility] [place] [address] [id number] [place] [id number] Jan, [facility] [address] [id number] [place] [id number] Jan, Dental examination V72.2 [facility] [place] [address] [id number] [place] [id number] Jan, [facility] [place] [address] [id number] [place] [id number] Jan, [facility] [place] [address] [id number] [place] [id number] Jan, [facility] [place] [address] [id number] [place] [id number] Jan, [facility] [place] [address] [id number] [place] [id number] Jan, [facility] [place] [address] [id number] [place] [id number] Jan, [facility] [place] [address] [id number] [place] [id number] Jan, [facility] [place] [address] [id number] [place] [id number] Jan, [facility] [place] [address] [id number] [place] [id number] Jan, [facility] [place] [address] [id number] [place] [id number] Jan, [facility] [place] [address] [id number] [place] [id number] Jan, [facility] [place] [address] [id number] [place] [id number] Jan, [facility] [place] [address] [id number] [place] [id number] Jan, [facility] [place] [address] [id number] [place] [id number] Jan, [facility] [place] [address] [id number] [place] [id number] Jan, [facility] [place] [address] [id number] [place] [id number] Jan, [facility] [place] [address] [id number] [place] [id number] Jan, [facility] [place] [address] [id number] [place] [id number] Jan, [facility] [place] [address] [id number] [place] [id number] Jan, [facility] [place] [address] [id number] [place] [id number] Jan, [facility] [place] [address] [id number] [place] [id number] Jan, [facility] [place] [address] [id number] [place] [id number] Jan, [facility] [place] [address] [id number] [place] [id number] Jan, [facility] [place] [address] [id number] [place] [id number] Jan, [facility] [place] [address] [id number] [place] [id number] December, [facility] [place] [address] [id number] [place] [id number] December, [facility] [place] [address] [id number] [place] [id number] December, [facility] [place] [address] [id number] [place] [id number] December, [facility] [place] [address] [id number] [place] [id number] December, [facility] [place] [address] [id number] [place] [id number] December, [facility] [place] [address] [id number] [place] [id number] December, [facility] [place] [address] [id number] [place] [id number] December, [facility] [place] [address] [id number] [place] [id number] December, [facility] [place] [address] [id number] [place] [id number] December, [facility] [place] [address] [id number] [place] [id number] December, [facility] [place] [address] [id number] [place] [id number] December, [facility] [place] [address] [id number] [place] [id number] December, [facility] [place] [address] [id number] [place] [id number] December, [facility] [place] [address] [id number] [place] [id number] Nov, [facility] [place] [address] [id number] [place] [id number] Nov, [facility] [place] [address] [id number] [place] [id number] Nov, [facility] [place] [address] [id number] [place] [id number] Nov, [facility] [address] [facility] [id number] [address] [place] [address] Nov, [facility] [address] [facility] [id number] [address] [place] [address] Nov, [facility] [address] [facility] [id number] [address] [place] [address] Sep, [facility] [address] [facility] [id number] [address] [place] [phone] Sep, [facility] [address] [facility] [id number] [address] [place] [address] Jul, [facility] [address] [facility] [id number] [address] [place] [phone] Jul, [facility] [address] [facility] [id number] [address] [place] [address] Jul, [facility] [address] [facility] [id number] [address] [place] [address] Jul, [facility] [address] [facility] [id number] [address] [place] [address] Jul, [facility] [address] [facility] [id number] [address] [place] [phone] Jul, [facility] [address] [id number] [address] [place] [address], [place] [address] Jun, [facility] [address] [id number] [address] [place] [address], [place] [address] Jun, [facility] [address] [id number] [address] [place] [address], [place] [address] Jun, [facility] [address] [id number] [address] [place] [address], [place] [address] Jun, [facility] [address] [id number] [address] [place] [address], [place] [address] May, [facility] [address] [id number] [address] [place] [address], [place] [address] May, [facility] [address] [id number] [address] [place] [address], [place] [address] Feb, [facility] [address] [id number] [address] [place] [address], [place] [address] Feb, [facility] [address] [id number] [address] [place] [address], [place] [address] Feb, [facility] [address] [id number] [address] [place] [address], [place] [address] Feb, [facility] [address] [id number] [address] [place] [address], [place] [address] Jan, [facility] [address] [id number] [address] [place] [address], [place] [address] Jan, [facility] [address] [id number] [address] [place] [address], [place] [address] Jan, [facility] [address] [id number] [address] [place] [address], [place] [address] Jan, [facility] [address] [id number] [address] [place] [address], [place] [address] December, [facility] [address] [id number] [facility] [place] [address] December, [facility] [address] [id number] [facility] [place] [address] December, [facility] [address] [id number] [facility] [place] [address] December, [facility] [address] [id number] [facility] [place] [address] December, [facility] [address] [id number] [facility] [place] [address] December, [facility] [address] [id number] [address] [place] [address], [place] [address] December, [facility] [address] [id number] [address] [place] [address], [place] [address] December, [facility] [address] [id number] [address] [place] [address], [place] [address] December, [facility] [address] [id number] [address] [place] [address], [place] [address] December, [facility] [address] [id number] [address] [place] [address], [place] [address] December, [facility] [address] [id number] [address] [place] [address], [place] [address] December, [facility] [address] [id number] [address] [place] [address], [place] [address] December, [facility] [address] [id number] [address] [place] [address], [place] [address] December, [facility] [address] [id number] [address] [place] [address], [place] [address] December, [facility] [address] [id number] [address] [place] [address], [place] [address] December, [facility] [address] [id number] [address] [place] [address], [place] [address] December, [facility] [address] [id number] [facility] [place] [address] Nov, [facility] [address] [id number] [address] [place] [address], [place] [address] Nov, [facility] [address] [id number] [address] [place] [address], [place] [address] Nov, [facility] [address] [id number] [address] [place] [address], [place] [address] Nov, [facility] [address] [id number] [address] [place] [address], [place] [address] Nov, [facility] [address] [id number] [address] [place] [address], [place] [address] Nov, [facility] [address] [id number] [address] [place] [address], [place] [address] Nov, [facility] [address] [id number] [address] [place] [address], [place] [address] Nov, [facility] [address] [id number] [address] [place] [address], [place] [address] Nov, [facility] [address] [id number] [address] [place] [address], [place] [address] Nov, [facility] [address] [id number] [address] [place] [address], [place] [address] Nov, [facility] [address] [id number] [address] [place] [address], [place] [address] Nov, [facility] [address] [id number] [address] [place] [address], [place] [address] Nov, [facility] [address] [id number] [address] [place] [address], [place] [address] Nov, [facility] [address] [id number] [address] [place] [address], [place] [address] Nov, [facility] [address] [id number] [address] [place] [address], [place] [address] Nov, [facility] [address] [id number] [address] [place] [address], [place] [address] Oct, [facility] [address] [id number] [address] [place] [address], [place] [address] Oct, [facility] [address] [id number] [address] [place] [address], [place] [address] Oct, [facility] [address] [id number] [address] [place] [address], [place] [address] Oct, [facility] [address] [id number] [address] [place] [address], [place] [address] Oct, [facility] [address] [id number] [address] [place] [address], [place] [address] Oct, [facility] [address] [id number] [address] [place] [address], [place] [address] Oct, [facility] [address] [id number] [address] [place] [address], [place] [address] Oct, [facility] [address] [id number] [address] [place] [address], [place] [address] Sep, [facility] [address] [id number] [address] [place] [address], [place] [address] Sep, [facility] [address] [id number] [address] [place] [address], [place] [address] Sep, [facility] [address] [id number] [address] [place] [address], [place] [address] Sep, [facility] [address] [id number] [address] [place] [address], [place] [address] Sep, [facility] [address] [id number] [address] [place] [address], [place] [address] Sep, [facility] [address] [id number] [address] [place] [address], [place] [address] Sep, [facility] [address] [id number] [address] [place] [address], [place] [address] Sep, [facility] [address] [id number] [address] [place] [address], [place] [address] Sep, [facility] [address] [id number] [address] [place] [address], [place] [address] Sep, [facility] [address] [id number] [address] [place] [address], [place] [address] Aug, [facility] [address] [id number] [address] [place] [address], [place] [address] Aug, [facility] [address] [id number] [address] [place] [address], [place] [address] Jul, [facility] [address] [id number] [address] [place] [address], [place] [address] Jul, [facility] [address] [id number] [address] [place] [address], [place] [address] Jul, [facility] [address] [id number] [address] [place] [address], [place] [address] Jul, [facility] [address] [id number] [address] [place] [address], [place] [address] Jul, [facility] [address] [id number] [address] [place] [address] Jul, [facility] [address] [id number] [address] [place] [address] Jun, [facility] [address] [id number] [address] [place] [address], [place] [address] Jun, [facility] [address] [id number] [address] [place] [id number] Jun, [facility] [address] [id number] [address] [place] [address], [place] [address] May, [facility] [address] [id number] [address] [place] [id number] December, [facility] [address] [id number] [address] [place] [id number] December, [facility] [address] [id number] [address] [place] [id number] Jan, [facility] [address] [id number] [address] [place] [address] Jan, [facility] [address] [id number] [address] [place] [address] Jan, [facility] [address] [id number] [address] [place] [phone] Jan, [facility] [address] [facility] [id number] [address] [place] [id number] December, [id number] [place] [id number] December, [facility] [address] [facility] [id number] [address] [place] [address] December, [facility] [address] [facility] [id number] [address] [place] [address] December, [facility] [address] [facility] [id number] [address] [place] [id number] December, [facility] [address] [facility] [id number] [address] [place] [phone] Oct, [facility] [address] [id number] [address] [place] [id number] Jul, [facility] [address] [id number] [address] [place] [id number] Jul, [facility] [address] [facility] [id number] [address] [place] [id number] Jun, IMMUNIZATIONS No Known Immunizations SOCIAL HISTORY Never Assessed REASON FOR VISIT Dental Debridement PLAN OF CARE Activity Details Follow Up prn Reason:GURINDER/Restorative VITAL SIGNS MEDICATIONS Medication Instructions Dosage Frequency Start Date End Date Duration S tatus Omeprazole Active Zoloft Active Orally Once a day 1 tablet 24h Acti ve Zantac 150 MG Orally Once a day 1 tablet at bedtime 24h Unknown Saline Nasal [place] 0.65 % Nasally every 2 hours prn 2 sprays as dir ected Jan, Unknown RESULTS No Results PROCEDURES Procedure Date Ordered Result Body Site ORAL HYGIENE INSTRUCTIONS October 29, 2017 Full mouth debridement October 29, 2017 Billing Notes on claim October 29, 2017 TOPICAL FLUORIDE VARNISH October 29, 2017 INSTRUCTIONS MEDICATIONS ADMINISTERED No Known Medications [...]
--- OUTSIDE RECORDS SUMMARY | 2019-11-24 00:52 | XMS REPORT ---
Author Author Vilma REYES Y Organization [facility] [place] Address [address] [place] [address] Care Team Providers Care Regulatory Law Specialist Name Role Phone AYLA EUBANKSMACK[place] Unavailable PROBLEMS Type Condition ICD9-CM Code DJU39-AI Code Onset Dates Condition S tatus SNOMED Code Problem Irregular menstrual cycle N92.6 Acti ve 60453020 Problem Elevated blood pressure reading without diagnosi s of hypertension 796.2 Active 208818723 Problem Chronic gingivitis, plaque induced K05.10 Active 85943056 Problem Tobacco abuse Z72.0 Active 119992 05 Problem Constipation, unspecified constipation type K59.00 Active 10734730 Problem Lower abdominal pain R10.30 Active 18349795 Problem Anxiety F41.9 Active 19523318 Problem Fatigue, unspecified type R53.83 Acti ve [id number] ALLERGIES No Information ENCOUNTERS Encounter Location Date Diagnosis [facility] [address] [id number] [place] [id number] Oct, [facility] [address] [id number] [address] [place] [id number] Oct, Dental examination Z01.20 [facility] [place] [address] [id number] [address] [place] [address] Oct, Dental examination Z01.20 an d Chronic gingivitis, plaque induced K05.10 [facility] [place] [address] [id number] [address] [place] [address] Oct, Dental examination Z01.20 [facility] [address] [id number] [place] [id number] Jun, [facility] [address] [id number] [place] [id number] May, [facility] [address] [id number] [place] [id number] May, [facility] [place] [address] [id number] [place] [id number] Apr, [facility] [place] [address] [id number] [place] [id number] Apr, [facility] [place] [address] [id number] [place] [id number] Feb, Encounter for test, result unk nown Z32.00 [facility] [place] [address] [id number] [place] [id number] Feb, [facility] [place] [address] [id number] [place] [id number] Feb, [facility] [place] [address] [id number] [place] [id number] Feb, Encounter for test, result unk nown Z32.00 [facility] [place] [address] [id number] [place] [id number] Jan, [facility] [place] [address] [id number] [place] [id number] Jan, [facility] [place] [address] [id number] [place] [id number] Jan, [facility] [place] [address] [id number] [place] [id number] December, [facility] [place] [address] [id number] [place] [id number] December, [facility] [place] [address] [id number] [place] [id number] Nov, [facility] [place] [address] [id number] [place] [id number] Nov, [facility] [place] [address] [id number] [place] [id number] Nov, [facility] [place] [address] [id number] [place] [id number] Oct, [facility] [place] [address] [id number] [place] [id number] Oct, [facility] [place] [address] [id number] [place] [id number] Oct, [facility] [place] [address] [id number] [place] [id number] Oct, [facility] [place] [address] [id number] [place] [id number] Sep, [facility] [place] [address] [id number] [place] [id number] Sep, [facility] [place] [address] [id number] [place] [id number] Sep, [facility] [place] [address] [id number] [place] [id number] Sep, [facility] [place] [address] [id number] [place] [id number] Sep, [facility] [place] [address] [id number] [place] [id number] Aug, [facility] [place] [address] [id number] [place] [id number] Jul, [facility] [place] [address] [id number] [place] [id number] Jul, [facility] [place] [address] [id number] [place] [id number] Jun, [facility] [place] [address] [id number] [place] [id number] Jun, [facility] [place] [address] [id number] [place] [id number] Jun, [facility] [place] [address] [id number] [place] [id number] Jun, [facility] [place] [address] [id number] [place] [id number] Jun, [facility] [place] [address] [id number] [place] [id number] Jun, [facility] [place] [address] [id number] [place] [id number] May, [facility] [place] [address] [id number] [place] [id number] May, [facility] [place] [address] [id number] [place] [id number] May, [facility] [place] [address] [address] Apr, Bronchitis J40 [facility] [place] [address] [id number] [place] [id number] Mar, [facility] [place] [address] [id number] [place] [id number] Feb, [facility] [place] [address] [id number] [place] [id number] Feb, [facility] [place] [address] [id number] [place] [id number] Feb, Sore throat J02.9 and Ear pain, right H9 2.01 [facility] [place] [address] [id number] [place] [id number] Jan, [facility] [place] [address] [id number] [place] [id number] Jan, Viral syndrome B34.9 ; Other seasonal al lergic rhinitis J30.2 and Post-nasal drip R09.82 [facility] [place] [address] [id number] [place] [id number] Jan, [facility] [place] [address] [id number] [place] [id number] Nov, [facility] [place] [facility] [address] [facility] [id number] [place] [id number] Oct, test positive Z32.01 [facility] [place] [address] [place] [address] Oct, [facility] [place] [address] [id number] [address] [place] [address] Oct, [facility] [place] [address] [id number] [address] [place] [address] Sep, Kidney stones N20.0 [facility] [place] [address] [id number] [address] [place] [address] Sep, [facility] [place] [address] [id number] [address] [place] [address] 11 Sep, 2015 Pelvic pain R10.2 ; Left low er quadrant pain R10.32 ; Vaginal discharge N89.8 ; Routine screening for STI (sexually transmitted infection) Z11.3 ; Unprotected sexual intercourse Z72.51 ; Kidney stone N20.0 ; History of dyspareunia in female Z87.42 and Screening for malignant neoplasm of cervix Z12.4 [facility] [place] [address] [id number] [address] [place] [address] Jun, Constipation, unspecified co nstipation type K59.00 ; Lower abdominal pain R10.30 ; Irregular menstrual cycle N92.6 ; Anxiety F41.9 ; Fatigue, unspecified type R53.83 and Tobacco abuse Z72.0 [facility] [place] [address] [id number] [place] [id number] Jun, [facility] [place] [address] [id number] [place] [id number] Jun, Nausea R11.0 [facility] [place] [address] [id number] [place] [id number] May, Alopecia L65.9 [facility] [place] [address] [id number] [place] [id number] May, [facility] [place] [address] [id number] [place] [id number] Apr, [facility] [place] [address] [id number] [place] [id number] Mar, [facility] [place] [address] [id number] [place] [id number] Mar, [facility] [place] [address] [id number] [place] [id number] Mar, [facility] [place] [address] [id number] [address] [place] [address] Mar, test negative V72. 41 [facility] [place] [address] [id number] [place] [id number] Mar, [facility] [place] [address] [id number] [place] [id number] Mar, [facility] [place] [address] [id number] [place] [id number] Feb, [facility] [place] [address] [id number] [place] [id number] Feb, [facility] [place] [address] [id number] [place] [id number] Feb, [facility] [place] [address] [id number] [place] [id number] Feb, [facility] [place] [address] [id number] [place] [id number] Feb, [facility] [place] [address] [id number] [place] [id number] Feb, [facility] [place] [address] [id number] [place] [id number] Feb, [facility] [place] [address] [id number] [place] [id number] Feb, [facility] [place] [address] [id number] [place] [id number] Feb, [facility] [place] [address] [id number] [place] [id number] Feb, [facility] [place] [address] [id number] [place] [id number] Feb, [facility] [place] [address] [id number] [place] [id number] Feb, [facility] [place] [address] [id number] [place] [id number] Jan, [facility] [place] [address] [id number] [place] [id number] Jan, [facility] [place] [address] [id number] [place] [id number] Jan, [facility] [place] [address] [id number] [place] [id number] Jan, Dental examination V72.2 [facility] [place] [address] [id number] [place] [id number] Jan, [facility] [place] [address] [id number] [place] [id number] Jan, [facility] [place] [address] [id number] [place] [id number] Jan, [facility] [place] [address] [id number] [place] [id number] Jan, [facility] [place] [address] [id number] [place] [id number] Jan, [facility] [place] [address] [id number] [place] [id number] Jan, [facility] [place] [address] [id number] [place] [id number] Jan, [facility] [place] [address] [id number] [place] [id number] Jan, [facility] [place] [address] [id number] [place] [id number] Jan, [facility] [place] [address] [id number] [place] [id number] Jan, [facility] [place] [address] [id number] [place] [id number] Jan, [facility] [place] [address] [id number] [place] [id number] Jan, [facility] [place] [address] [id number] [place] [id number] Jan, [facility] [place] [address] [id number] [place] [id number] Jan, [facility] [place] [address] [id number] [place] [id number] Jan, [facility] [place] [address] [id number] [place] [id number] Jan, [facility] [place] [address] [id number] [place] [id number] Jan, [facility] [place] [address] [id number] [place] [id number] Jan, [facility] [place] [address] [id number] [place] [id number] Jan, [facility] [place] [address] [id number] [place] [id number] Jan, [facility] [place] [address] [id number] [place] [id number] Jan, [facility] [place] [address] [id number] [place] [id number] Jan, [facility] [place] [address] [id number] [place] [id number] Jan, [facility] [place] [address] [id number] [place] [id number] Jan, [facility] [place] [address] [id number] [place] [id number] December, [facility] [place] [address] [id number] [place] [id number] December, [facility] [place] [address] [id number] [place] [id number] December, [facility] [place] [address] [id number] [place] [id number] December, [facility] [place] [address] [id number] [place] [id number] December, [facility] [place] [address] [id number] [place] [id number] December, [facility] [place] [address] [id number] [place] [id number] December, [facility] [place] [address] [id number] [place] [id number] December, [facility] [place] [address] [id number] [place] [id number] December, [facility] [place] [address] [id number] [place] [id number] December, [facility] [place] [address] [id number] [place] [id number] December, [facility] [place] [address] [id number] [place] [id number] December, [facility] [place] [address] [id number] [place] [id number] December, [facility] [place] [address] [id number] [place] [id number] December, [facility] [place] [address] [id number] [place] [id number] Nov, [facility] [place] [address] [id number] [place] [id number] Nov, [facility] [place] [address] [id number] [place] [id number] Nov, [facility] [place] [address] [id number] [place] [id number] Nov, [facility] [address] [id number] [address] [place] [address] Nov, [facility] [address] [facility] [id number] [address] [place] [address] Nov, [facility] [address] [facility] [id number] [address] [place] [address] Sep, [facility] [address] [facility] [id number] [address] [place] [address] Sep, [facility] [address] [facility] [id number] [address] [place] [address] Jul, [facility] [address] [facility] [id number] [address] [place] [address] Jul, [facility] [address] [facility] [id number] [address] [place] [address] Jul, [facility] [address] [facility] [id number] [address] [place] [address] Jul, [facility] [address] [facility] [id number] [address] [place] [address] Jul, [facility] [address] [facility] [id number] [address] [place] [address] Jul, [facility] [address] [id number] [address] [place] [address] Jun, [facility] [address] [id number] [address] [place] [address], [place] [address] Jun, [facility] [address] [id number] [address] [place] [address], [place] [address] Jun, [facility] [address] [id number] [address] [place] [address], [place] [address] Jun, [facility] [address] [id number] [address] [place] [address], [place] [address] May, [facility] [address] [id number] [address] [place] [address], [place] [address] May, [facility] [address] [id number] [address] [place] [address], [place] [address] Feb, [facility] [address] [id number] [address] [place] [address], [place] [address] Feb, [facility] [address] [id number] [address] [place] [address], [place] [address] Feb, [facility] [address] [id number] [address] [place] [address], [place] [address] Feb, [facility] [address] [id number] [address] [place] [address], [place] [address] Jan, [facility] [address] [id number] [address] [place] [address], [place] [address] Jan, [facility] [address] [id number] [address] [place] [address], [place] [address] Jan, [facility] [address] [id number] [address] [place] [address], [place] [address] Jan, [facility] [address] [id number] [address] [place] [address], [place] [address] December, [facility] [address] [id number] [address] [place] [address], [place] [address] December, [facility] [address] [id number] [address] [place] [address], [place] [address] December, [facility] [address] [id number] [facility] [place] [address] December, [facility] [address] [id number] [address] [place] [address], [place] [address] December, [facility] [address] [id number] [address] [place] [address], [place] [address] December, [facility] [address] [id number] [address] [place] [address], [place] [address] December, [facility] [address] [id number] [address] [place] [address], [place] [address] December, [facility] [address] [id number] [address] [place] [address], [place] [address] December, [facility] [address] [id number] [address] [place] [address], [place] [address] December, [facility] [address] [id number] [address] [place] [address], [place] [address] December, [facility] [address] [id number] [address] [place] [address], [place] [address] December, [facility] [address] [id number] [address] [place] [address], [place] [address] December, [facility] [address] [id number] [address] [place] [address], [place] [address] December, [facility] [address] [id number] [address] [place] [address], [place] [address] December, [facility] [address] [id number] [address] [place] [address], [place] [address] December, [facility] [address] [id number] [address] [place] [address], [place] [address] December, [facility] [address] [id number] [address] [place] [address], [place] [address] Nov, [facility] [address] [id number] [facility] [place] [address] Nov, [facility] [address] [id number] [address] [place] [address], [place] [address] Nov, [facility] [address] [id number] [address] [place] [address], [place] [address] Nov, [facility] [address] [id number] [address] [place] [address], [place] [address] Nov, [facility] [address] [id number] [address] [place] [address], [place] [address] Nov, [facility] [address] [id number] [address] [place] [address], [place] [address] Nov, [facility] [address] [id number] [address] [place] [address], [place] [address] Nov, [facility] [address] [id number] [address] [place] [address], [place] [address] Nov, [facility] [address] [id number] [address] [place] [address], [place] [address] Nov, [facility] [address] [id number] [address] [place] [address], [place] [address] Nov, [facility] [address] [id number] [address] [place] [address], [place] [address] Nov, [facility] [address] [id number] [address] [place] [address], [place] [address] Nov, [facility] [address] [id number] [address] [place] [address], [place] [address] Nov, [facility] [address] [id number] [address] [place] [address], [place] [address] Nov, [facility] [address] [id number] [address] [place] [address], [place] [address] Nov, [facility] [address] [id number] [address] [place] [address], [place] [address] Oct, [facility] [address] [id number] [facility] [place] [address] Oct, [facility] [address] [id number] [facility] [place] [address] Oct, [facility] [address] [id number] [address] [place] [address] Oct, [facility] [address] [id number] [address] [place] [address], [place] [address] Oct, [facility] [address] [id number] [address] [place] [address], [place] [address] Oct, [facility] [address] [id number] [address] [place] [address], [place] [address] Oct, [facility] [address] [id number] [address] [place] [address], [place] [address] Oct, [facility] [address] [id number] [address] [place] [address], [place] [address] Sep, [facility] [address] [id number] [address] [place] [address], [place] [address] Sep, [facility] [address] [id number] [address] [place] [address], [place] [address] Sep, [facility] [address] [id number] [address] [place] [address], [place] [address] Sep, [facility] [address] [id number] [address] [place] [address], [place] [address] Sep, [facility] [address] [id number] [address] [place] [address], [place] [address] Sep, [facility] [address] [id number] [address] [place] [address], [place] [address] Sep, [facility] [address] [id number] [address] [place] [address], [place] [address] Sep, [facility] [address] [id number] [address] [place] [address], [place] [address] Sep, [facility] [address] [id number] [address] [place] [address], [place] [address] Sep, [facility] [address] [id number] [address] [place] [address], [place] [address] Aug, [facility] [address] [id number] [address] [place] [address], [place] [address] Aug, [facility] [address] [id number] [address] [place] [address], [place] [address] Jul, [facility] [address] [id number] [address] [place] [address], [place] [address] Jul, [facility] [address] [id number] [address] [place] [address], [place] [address] Jul, [facility] [address] [id number] [address] [place] [address], [place] [address] Jul, [facility] [address] [id number] [address] [place] [address], [place] [address] Jul, [facility] [address] [id number] [address] [place] [address], [place] [address] Jul, [facility] [address] [id number] [address] [place] [address], [place] [address] Jun, [facility] [address] [id number] [address] [place] [id number] Jun, [facility] [address] [id number] [address] [place] [address], [place] [address] Jun, [facility] [address] [id number] [address] [place] [address], [place] [address] May, [facility] [address] [id number] [address] [place] [address], [place] [address] December, [facility] [address] [id number] [address] [place] [id number] December, [facility] [place] [address] [id number] [address] [place] [id number] Jan, [facility] [place] [address] [id number] [address] [place] [id number] Jan, [facility] [place] [address] [id number] [address] [place] [id number] Jan, [facility] [place] [address] [id number] [address] [place] [id number] Jan, [facility] [place] [address] [id number] [address] [place] [id number] December, [facility] [address] [id number] [place] [id number] December, [facility] [place] [address] [facility] [id number] [address] [place] [id number] December, [facility] [place] [address] [id number] [address] [place] [id number] December, [facility] [place] [address] [facility] [facility] [id number] [address] [place] [id number] December, [facility], [place], [facility] [address] [id number] [address] [place] [id number] Oct, [facility], [place], [facility] [address] [facility] [id number] [address] [place] [id number] Jul, [facility], [place], [facility] [address] [id number] [address] [place] [id number] Jul, [facility], [place], [facility] [address] [id number] [address] [place] [id number] Jun, IMMUNIZATIONS No Known Immunizations SOCIAL HISTORY [...]
--- OUTSIDE RECORDS SUMMARY | 2019-11-24 00:52 | XMS REPORT ---
Author Author Vilma HUDDLESTON Organization [facility] Address [address] [place] [address] Care Team Providers Care Team Cdl Driver Name Role Phone SHABNAM HUDDLESTON Unavailable PROBLEMS Type Condition ICD9-CM Code EZY63-MI Code Onset Dates Condition S tatus SNOMED Code Problem Irregular menstrual cycle N92.6 Acti ve 66086688 Problem Elevated blood pressure reading without diagnosi s of hypertension 796.2 Active 227369992 Problem Chronic gingivitis, plaque induced K05.10 Active 57727944 Problem Tobacco abuse Z72.0 Active 286042 05 Problem Constipation, unspecified constipation type K59.00 Active 83636295 Problem Lower abdominal pain R10.30 Active 95065241 Problem Anxiety F41.9 Active 54626557 Problem Fatigue, unspecified type R53.83 Acti ve [id number] ALLERGIES No Information ENCOUNTERS Encounter Location Date Diagnosis [facility] [address] [id number] [place] [id number] Feb, Acute cystitis without hematuria N30.00 [facility] [address] [id number] [place] [id number] Oct, [facility] [address] [id number] [address] [place] [address] [id number] Oct, Dental examination Z01.20 [facility] [address] [id number] [address] [place] [address] Oct, Dental examination Z01.20 an d Chronic gingivitis, plaque induced K05.10 [facility] [address] [id number] [address] [place] [address] Oct, Dental examination Z01.20 [facility] [address] [id number] [place] [id number] Jun, [facility] [place] [address] [id number] [place] [id number] May, [facility] [place] [address] [id number] [place] [id number] May, [facility] [place] [address] [id number] [place] [id number] Apr, [facility] [place] [address] [id number] [place] [id number] Apr, [facility] [place] [address] [id number] [place] [id number] Feb, Encounter for test, result unk nown Z32.00 [facility] [place] [address] [id number] [place] [id number] Feb, [facility] [place] [address] [id number] [place] [id number] Feb, [facility] [place] [address] [id number] [place] [id number] Feb, Encounter for test, result unk nown Z32.00 [facility] [place] [address] [id number] [place] [id number] Jan, [facility] [place] [address] [id number] [place] [id number] Jan, [facility] [place] [address] [id number] [place] [id number] Jan, [facility] [place] [address] [id number] [place] [id number] December, [facility] [place] [address] [id number] [place] [id number] December, [facility] [place] [address] [id number] [place] [id number] Nov, [facility] [place] [address] [id number] [place] [id number] Nov, [facility] [place] [address] [id number] [place] [id number] Nov, [facility] [place] [address] [id number] [place] [id number] Oct, [facility] [place] [address] [id number] [place] [id number] Oct, [facility] [place] [address] [id number] [place] [id number] Oct, [facility] [place] [address] [id number] [place] [id number] Oct, [facility] [place] [address] [id number] [place] [id number] Sep, [facility] [place] [address] [id number] [place] [id number] Sep, [facility] [place] [address] [id number] [place] [id number] Sep, [facility] [place] [address] [id number] [place] [id number] Sep, [facility] [place] [address] [id number] [place] [id number] Sep, [facility] [place] [address] [id number] [place] [id number] Aug, [facility] [place] [address] [id number] [place] [id number] Jul, [facility] [place] [address] [id number] [place] [id number] Jul, [facility] [place] [address] [id number] [place] [id number] Jun, [facility] [place] [address] [id number] [place] [id number] Jun, [facility] [place] [address] [id number] [place] [id number] Jun, [facility] [place] [address] [id number] [place] [id number] Jun, [facility] [place] [address] [id number] [place] [id number] Jun, [facility] [place] [address] [id number] [place] [id number] Jun, [facility] [place] [address] [id number] [place] [id number] May, [facility] [place] [address] [id number] [place] [id number] May, [facility] [place] [address] [id number] [place] [id number] May, [facility] [address] [id number] [address] [place] [address] Apr, Bronchitis J40 [facility] [place] [address] [id number] [place] [id number] Mar, [facility] [place] [address] [id number] [place] [id number] Feb, [facility] [place] [address] [id number] [place] [id number] Feb, [facility] [place] [address] [id number] [place] [id number] Feb, Sore throat J02.9 and Ear pain, right H9 2.01 [facility] [place] [address] [id number] [place] [id number] Jan, [facility] [place] [address] [id number] [place] [id number] Jan, Viral syndrome B34.9 ; Other seasonal al lergic rhinitis J30.2 and Post-nasal drip R09.82 [facility] [place] [address] [id number] [place] [id number] Jan, [facility] [place] [address] [id number] [place] [id number] Nov, [facility] [place] [address] [id number] [place] [id number] Oct, test positive Z32.01 [facility] [address] [id number] [address] [place] [address] Oct, [facility] [address] [id number] [address] [place] [address] Oct, [facility] [address] [id number] [address] [place] [address] Sep, Kidney stones N20.0 [facility] [address] [id number] [address] [place] [address] Sep, [facility] [address] [id number] [address] [place] [address] Sep, Pelvic pain R10.2 ; Left low er quadrant pain R10.32 ; Vaginal discharge N89.8 ; Routine screening for STI (sexually transmitted infection) Z11.3 ; Unprotected sexual intercourse Z72.51 ; Kidney stone N20.0 ; History of dyspareunia in female Z87.42 and Screening for malignant neoplasm of cervix Z12.4 [place] [address] [address] Jun, Constipation, unspecified co nstipation type K59.00 ; Lower abdominal pain R10.30 ; Irregular menstrual cycle N92.6 ; Anxiety F41.9 ; Fatigue, unspecified type R53.83 and Tobacco abuse Z72.0 [facility] [place] [address] [id number] [place] [id number] Jun, [facility] [place] [address] [id number] [place] [id number] Jun, Nausea R11.0 [facility] [place] [address] [id number] [place] [id number] May, Alopecia L65.9 [facility] [place] [address] [id number] [place] [id number] May, [facility] [place] [address] [id number] [place] [id number] Apr, [facility] [place] [address] [id number] [place] [id number] Mar, [facility] [place] [address] [id number] [place] [id number] Mar, [facility] [place] [address] [id number] [place] [id number] Mar, [facility] [address] [id number] [address] [place] [address] Mar, test negative V72. 41 [facility] [place] [address] [id number] [place] [id number] Mar, [facility] [place] [address] [id number] [place] [id number] Mar, [facility] [place] [address] [id number] [place] [id number] Feb, [facility] [place] [address] [id number] [place] [id number] Feb, [facility] [place] [address] [id number] [place] [id number] Feb, [facility] [place] [address] [id number] [place] [id number] Feb, [facility] [place] [address] [id number] [place] [id number] Feb, [facility] [place] [address] [id number] [place] [id number] Feb, [facility] [place] [address] [id number] [place] [id number] Feb, [facility] [place] [address] [id number] [place] [id number] Feb, [facility] [place] [address] [id number] [place] [id number] Feb, [facility] [place] [address] [id number] [place] [id number] Feb, [facility] [place] [address] [id number] [place] [id number] Feb, [facility] [place] [address] [id number] [place] [id number] Feb, [facility] [place] [address] [id number] [place] [id number] Jan, [facility] [place] [address] [id number] [place] [id number] Jan, [facility] [place] [address] [id number] [place] [id number] Jan, [facility] [address] [facility] [address] [id number] [place] [id number] Jan, Dental examination V72.2 [facility] [place] [address] [id number] [place] [id number] Jan, [facility] [place] [address] [id number] [place] [id number] Jan, [facility] [place] [address] [id number] [place] [id number] Jan, [facility] [place] [address] [id number] [place] [id number] Jan, [facility] [place] [address] [id number] [place] [id number] Jan, [facility] [place] [address] [id number] [place] [id number] Jan, [facility] [place] [address] [id number] [place] [id number] Jan, [facility] [place] [address] [id number] [place] [id number] Jan, [facility] [place] [address] [id number] [place] [id number] Jan, [facility] [place] [address] [id number] [place] [id number] Jan, [facility] [place] [address] [id number] [place] [id number] Jan, [facility] [place] [address] [id number] [place] [id number] Jan, [facility] [place] [address] [id number] [place] [id number] Jan, [facility] [place] [address] [id number] [place] [id number] Jan, [facility] [place] [address] [id number] [place] [id number] Jan, [facility] [place] [address] [id number] [place] [id number] Jan, [facility] [place] [address] [id number] [place] [id number] Jan, [facility] [place] [address] [id number] [place] [id number] Jan, [facility] [place] [address] [id number] [place] [id number] Jan, [facility] [place] [address] [id number] [place] [id number] Jan, [facility] [place] [address] [id number] [place] [id number] Jan, [facility] [place] [address] [id number] [place] [id number] Jan, [facility] [place] [address] [id number] [place] [id number] Jan, [facility] [place] [address] [id number] [place] [id number] Jan, [facility] [place] [address] [id number] [place] [id number] December, [facility] [place] [address] [id number] [place] [id number] December, [facility] [place] [address] [id number] [place] [id number] December, [facility] [place] [address] [id number] [place] [id number] December, [facility] [place] [address] [id number] [place] [id number] December, [facility] [place] [address] [id number] [place] [id number] December, [facility] [place] [address] [id number] [place] [id number] December, [facility] [place] [address] [id number] [place] [id number] December, [facility] [place] [address] [id number] [place] [id number] December, [facility] [place] [address] [id number] [place] [id number] December, [facility] [place] [address] [id number] [place] [id number] December, [facility] [place] [address] [id number] [place] [id number] December, [facility] [place] [address] [id number] [place] [id number] December, [facility] [place] [address] [id number] [place] [id number] December, [facility] [place] [address] [id number] [place] [id number] Nov, [facility] [place] [address] [id number] [place] [id number] Nov, [facility] [place] [address] [id number] [place] [id number] Nov, [facility] [place] [address] [id number] [place] [id number] Nov, [facility] [address] [facility] [id number] [address] [place] [address] Nov, [facility] [address] [facility] [id number] [address] [place] [address] Nov, [facility] [address] [facility] [id number] [address] [place] [address] Sep, [facility] [address] [facility] [id number] [address] [place] [address] Sep, [facility] [address] [facility] [id number] [address] [place] [address] Jul, [facility] [address] [facility] [id number] [address] [place] [address] Jul, [facility] [address] [facility] [id number] [address] [place] [address] Jul, [facility] [address] [facility] [id number] [address] [place] [address] Jul, [facility] [address] [facility] [id number] [address] [place] [address] Jul, [facility] [address] [id number] [address] [place] [address], [place] [address] Jul, [facility] [address] [id number] [address] [place] [address], [place] [address] Jun, [facility] [address] [id number] [address] [place] [address], [place] [address] Jun, [facility] [address] [id number] [address] [place] [address], [place] [address] Jun, [facility] [address] [id number] [address] [place] [address], [place] [address] Jun, [facility] [address] [id number] [address] [place] [address], [place] [address] May, [facility] [address] [id number] [address] [place] [address], [place] [address] May, [facility] [address] [id number] [address] [place] [address], [place] [address] Feb, [facility] [address] [id number] [address] [place] [address], [place] [address] Feb, [facility] [address] [id number] [address] [place] [address], [place] [address] Feb, [facility] [address] [id number] [address] [place] [address], [place] [address] Feb, [facility] [address] [id number] [address] [place] [address], [place] [address] Jan, [facility] [address] [id number] [address] [place] [address], [place] [address] Jan, [facility] [address] [id number] [address] [place] [address], [place] [address] Jan, [facility] [address] [id number] [address] [place] [address], [place] [address] Jan, [facility] [address] [id number] [address] [place] [address], [place] [address] December, [facility] [address] [id number] [address] [place] [address], [place] [address] December, [facility] [address] [id number] [address] [place] [address], [place] [address] December, [facility] [address] [id number] [address] [place] [address], [place] [address] December, [facility] [address] [id number] [address] [place] [address], [place] [address] December, [facility] [address] [id number] [address] [place] [address], [place] [address] December, [facility] [address] [id number] [address] [place] [address], [place] [address] December, [facility] [address] [id number] [address] [place] [address], [place] [address] December, [facility] [address] [id number] [address] [place] [address], [place] [address] December, [facility] [address] [id number] [address] [place] [address], [place] [address] December, [facility] [address] [id number] [address] [place] [address], [place] [address] December, [facility] [address] [id number] [address] [place] [address], [place] [address] December, [facility] [address] [id number] [address] [place] [address], [place] [address] December, [facility] [address] [id number] [address] [place] [address], [place] [address] December, [facility] [address] [id number] [address] [place] [address], [place] [address] December, [facility] [address] [id number] [address] [place] [address], [place] [address] December, [facility] [address] [id number] [address] [place] [address], [place] [address] December, [facility] [address] [id number] [address] [place] [address], [place] [address] Nov, [facility] [address] [id number] [address] [place] [address], [place] [address] Nov, [facility] [address] [id number] [address] [place] [address], [place] [address] Nov, [facility] [address] [id number] [address] [place] [address], [place] [address] Nov, [facility] [address] [id number] [address] [place] [address], [place] [address] Nov, [facility] [address] [id number] [address] [place] [address], [place] [address] Nov, [facility] [address] [id number] [address] [place] [address], [place] [address] Nov, [facility] [address] [id number] [address] [place] [address], [place] [address] Nov, [facility] [address] [id number] [address] [place] [address], [place] [address] Nov, [facility] [address] [id number] [address] [place] [address], [place] [address] Nov, [facility] [address] [id number] [address] [place] [address], [place] [address] Nov, [facility] [address] [id number] [address] [place] [address], [place] [address] Nov, [facility] [address] [id number] [address] [place] [address], [place] [address] Nov, [facility] [address] [id number] [address] [place] [address], [place] [address] Nov, [facility] [address] [id number] [address] [place] [address], [place] [address] Nov, [facility] [address] [id number] [address] [place] [address], [place] [address] Nov, [facility] [address] [id number] [facility] [place] [address] Oct, [facility] [address] [id number] [facility] [place] [address] Oct, [facility] [address] [id number] [address] [place] [address], [place] [address] Oct, [facility] [address] [id number] [address] [place] [address], [place] [address] Oct, [facility] [address] [id number] [address] [place] [address], [place] [address] Oct, [facility] [address] [id number] [address] [place] [address], [place] [address] Oct, [facility] [address] [id number] [address] [place] [address], [place] [address] Oct, [facility] [address] [id number] [address] [place] [address], [place] [address] Oct, [facility] [address] [id number] [address] [place] [address], [place] [address] Sep, [facility] [address] [id number] [address] [place] [address], [place] [address] Sep, [facility] [address] [id number] [address] [place] [address], [place] [address] Sep, [facility] [address] [id number] [address] [place] [address], [place] [address] Sep, [facility] [address] [id number] [address] [place] [address], [place] [address] Sep, [facility] [address] [id number] [address] [place] [address], [place] [address] Sep, [facility] [address] [id number] [address] [place] [address], [place] [address] Sep, [facility] [address] [id number] [address] [place] [address], [place] [address] Sep, [facility] [address] [id number] [address] [place] [address], [place] [address] Sep, [facility] [address] [id number] [address] [place] [address], [place] [address] Sep, [facility] [address] [id number] [address] [place] [address], [place] [address] Aug, [facility] [address] [id number] [address] [place] [address], [place] [address] Aug, [facility] [address] [id number] [address] [place] [address], [place] [address] Jul, [facility] [address] [id number] [address] [place] [address], [place] [address] Jul, [facility] [address] [id number] [address] [place] [address], [place] [address] Jul, [facility] [address] [id number] [address] [place] [address], [place] [address] Jul, [facility] [address] [id number] [address] [place] [address], [place] [address] Jul, [facility] [address] [id number] [address] [place] [address], [place] [address] Jul, [facility] [address] [id number] [address] [place] [address] Jun, [facility] [address] [id number] [address] [place] [address] Jun, [facility] [address] [id number] [address] [place] [address], [place] [address] Jun, [facility] [address] [id number] [address] [place] [id number] May, [facility] [address] [id number] [address] [place] [id number] December, [facility] [address] [id number] [address] [place] [id number] December, [facility] [address] [id number] [address] [place] [address] Jan, [facility] [address] [id number] [address] [place] [id number] Jan, [facility] [address] [id number] [address] [place] [address] Jan, [facility] [address] [id number] [address] [place] [address] Jan, [facility] [address] [id number] [address] [place] [id number] December, [id number] [place] [id number] December, [facility] [address] [id number] [address] [place] [id number] December, [facility] [address] [id number] [address] [place] [id number] December, [facility] [address] [id number] [address] [place] [id number] December, [facility] [address] [id number] [address] [place] [id number] Oct, [facility] [address] [id number] [address] [place] [id number] Jul, [facility] [address] [id number] [address] [place] [id number] Jul, [facility] [address] [id number] [address] [place] [id number] Jun, IMMUNIZATIONS No Known Immunizations SOCIAL HISTORY Never Assessed REASON FOR VISIT BP Check Chon CR PLAN OF CARE VITAL SIGNS Height 63 in 2017-11-03 Blood pressure systolic 134 mmHg 2017-11-03 Blood pressure diastolic 72 mmHg 2017-11-03 MEDICATIONS No Known Medications RESULTS No Results [...]
--- OUTSIDE RECORDS SUMMARY | 2019-11-24 00:52 | XMS REPORT ---
Author Author Vilma REBOLLAR Organization [facility] Address [address] [place] [address] Care Team Providers Care Raspberry Checker Name Role Phone KETURAH ANGELIA Unavailable PROBLEMS Type Condition ICD9-CM Code HEC66-[place] Code Onset Dates Condition S tatus SNOMED Code Problem Irregular menstrual cycle N92.6 Acti ve 68270182 Problem Elevated blood pressure reading without diagnosi s of hypertension 796.2 Active 679971996 Problem Chronic gingivitis, plaque induced K05.10 Active 83206442 Problem Tobacco abuse Z72.0 Active 012226 05 Problem Constipation, unspecified constipation type K59.00 Active 00775768 Problem Lower abdominal pain R10.30 Active 03228407 Problem Anxiety F41.9 Active 91192771 Problem Fatigue, unspecified type R53.83 Acti ve [id number] ALLERGIES No Information ENCOUNTERS Encounter Location Date Diagnosis [facility] [address] [id number] [place] [id number] Oct, [facility] [address] [id number] [address] [place] [address] [id number] Oct, Dental examination Z01.20 [facility] [address] [id number] [address] [place] [address] Oct, Dental examination Z01.20 an d Chronic gingivitis, plaque induced K05.10 [facility] [address] [id number] [address] [place] [address] Oct, Dental examination Z01.20 [facility] [address] [id number] [place] [id number] Jun, [facility] [address] [id number] [place] [id number] May, [facility] [address] [id number] [place] [id number] May, [facility] [place] [address] [id number] [place] [id number] Apr, [facility] [place] [address] [id number] [place] [id number] Apr, [facility] [place] [address] [id number] [place] [id number] Feb, Encounter for test, result unk nown Z32.00 [facility] [place] [address] [id number] [place] [id number] Feb, [facility] [place] [address] [id number] [place] [id number] Feb, [facility] [place] [address] [id number] [place] [id number] Feb, Encounter for test, result unk nown Z32.00 [facility] [place] [address] [id number] [place] [id number] Jan, [facility] [place] [address] [id number] [place] [id number] Jan, [facility] [place] [address] [id number] [place] [id number] Jan, [facility] [place] [address] [id number] [place] [id number] December, [facility] [place] [address] [id number] [place] [id number] December, [facility] [place] [address] [id number] [place] [id number] Nov, [facility] [place] [address] [id number] [place] [id number] Nov, [facility] [place] [address] [id number] [place] [id number] Nov, [facility] [place] [address] [id number] [place] [id number] Oct, [facility] [place] [address] [id number] [place] [id number] Oct, [facility] [place] [address] [id number] [place] [id number] Oct, [facility] [place] [address] [id number] [place] [id number] Oct, [facility] [place] [address] [id number] [place] [id number] Sep, [facility] [place] [address] [id number] [place] [id number] Sep, [facility] [place] [address] [id number] [place] [id number] Sep, [facility] [place] [address] [id number] [place] [id number] Sep, [facility] [place] [address] [id number] [place] [id number] Sep, [facility] [place] [address] [id number] [place] [id number] Aug, [facility] [place] [address] [id number] [place] [id number] Jul, [facility] [place] [address] [id number] [place] [id number] Jul, [facility] [place] [address] [id number] [place] [id number] Jun, [facility] [place] [address] [id number] [place] [id number] Jun, [facility] [place] [address] [id number] [place] [id number] Jun, [facility] [place] [address] [id number] [place] [id number] Jun, [facility] [place] [address] [id number] [place] [id number] Jun, [facility] [place] [address] [id number] [place] [id number] Jun, [facility] [place] [address] [id number] [place] [id number] May, [facility] [place] [address] [id number] [place] [id number] May, [facility] [place] [address] [id number] [place] [id number] May, [facility] [address] [id number] [address] [place] [address] Apr, Bronchitis J40 [facility] [address] [id number] [place] [id number] Mar, [facility] [address] [id number] [place] [id number] Feb, [facility] [address] [id number] [place] [id number] Feb, [facility] [address] [id number] [place] [id number] Feb, Sore throat J02.9 and Ear pain, right H9 2.01 [facility] [address] [facility] [id number] [place] [id number] Jan, [facility] [address] [id number] [place] [id number] Jan, Viral syndrome B34.9 ; Other seasonal al lergic rhinitis J30.2 and Post-nasal drip R09.82 [facility] [address] [facility] [id number] [place] [id number] Jan, [facility] [address] [facility] [id number] [place] [id number] Nov, [facility] [address] [id number] [place] [id number] Oct, test positive Z32.01 [facility] [address] [id number] [address] [place] [address] Oct, [facility] [address] [place] [address] Oct, [facility] [address] [id number] [address] [place] [address] Sep, Kidney stones N20.0 [facility] [address] [id number] [address] [place] [address] Sep, [facility] [address] [facility] [id number] [address] [place] [address] 11 Sep, 2015 Pelvic pain R10.2 ; Left low er quadrant pain R10.32 ; Vaginal discharge N89.8 ; Routine screening for STI (sexually transmitted infection) Z11.3 ; Unprotected sexual intercourse Z72.51 ; Kidney stone N20.0 ; History of dyspareunia in female Z87.42 and Screening for malignant neoplasm of cervix Z12.4 [place] [id number] [place] [address] 12 Jun, 2015 Constipation, unspecified co nstipation type K59.00 ; Lower abdominal pain R10.30 ; Irregular menstrual cycle N92.6 ; Anxiety F41.9 ; Fatigue, unspecified type R53.83 and Tobacco abuse Z72.0 [facility] [address] [id number] [place] [id number] Jun, [facility] [address] [id number] [place] [id number] Jun, Nausea R11.0 [facility] [place] [address] [id number] [place] [id number] May, Alopecia L65.9 [facility] [place] [address] [id number] [place] [id number] May, [facility] [place] [address] [id number] [place] [id number] Apr, [facility] [place] [address] [id number] [place] [id number] Mar, [facility] [place] [address] [id number] [place] [id number] Mar, [facility] [address] [id number] [place] [id number] Mar, [facility] [address] [id number] [address] [place] [address] Mar, test negative V72. 41 [facility] [place] [address] [id number] [place] [id number] Mar, [facility] [place] [address] [id number] [place] [id number] Mar, [facility] [place] [address] [id number] [place] [id number] Feb, [facility] [place] [address] [id number] [place] [id number] Feb, [facility] [place] [address] [id number] [place] [id number] Feb, [facility] [place] [address] [id number] [place] [id number] Feb, [facility] [place] [address] [id number] [place] [id number] Feb, [facility] [place] [address] [id number] [place] [id number] Feb, [facility] [place] [address] [id number] [place] [id number] Feb, [facility] [place] [address] [id number] [place] [id number] Feb, [facility] [place] [address] [id number] [place] [id number] Feb, [facility] [place] [address] [id number] [place] [id number] Feb, [facility] [place] [address] [id number] [place] [id number] Feb, [facility] [place] [address] [id number] [place] [id number] Feb, [facility] [place] [address] [id number] [place] [id number] Jan, [facility] [place] [address] [id number] [place] [id number] Jan, [facility] [place] [address] [id number] [place] [id number] Jan, [facility] [address] [facility] [address] [id number] [place] [id number] Jan, Dental examination V72.2 [facility] [place] [address] [id number] [place] [id number] Jan, [facility] [place] [address] [id number] [place] [id number] Jan, [facility] [place] [address] [id number] [place] [id number] Jan, [facility] [place] [address] [id number] [place] [id number] Jan, [facility] [place] [address] [id number] [place] [id number] Jan, [facility] [place] [address] [id number] [place] [id number] Jan, [facility] [place] [address] [id number] [place] [id number] Jan, [facility] [place] [address] [id number] [place] [id number] Jan, [facility] [place] [address] [id number] [place] [id number] Jan, [facility] [place] [address] [id number] [place] [id number] Jan, [facility] [place] [address] [id number] [place] [id number] Jan, [facility] [place] [address] [id number] [place] [id number] Jan, [facility] [place] [address] [id number] [place] [id number] Jan, [facility] [place] [address] [id number] [place] [id number] Jan, [facility] [place] [address] [id number] [place] [id number] Jan, [facility] [place] [address] [id number] [place] [id number] Jan, [facility] [place] [address] [id number] [place] [id number] Jan, [facility] [place] [address] [id number] [place] [id number] Jan, [facility] [place] [address] [id number] [place] [id number] Jan, [facility] [place] [address] [id number] [place] [id number] Jan, [facility] [place] [address] [id number] [place] [id number] Jan, [facility] [place] [address] [id number] [place] [id number] Jan, [facility] [place] [address] [id number] [place] [id number] Jan, [facility] [place] [address] [id number] [place] [id number] Jan, [facility] [place] [address] [id number] [place] [id number] December, [facility] [place] [address] [id number] [place] [id number] December, [facility] [place] [address] [id number] [place] [id number] December, [facility] [place] [address] [id number] [place] [id number] December, [facility] [place] [address] [id number] [place] [id number] December, [facility] [place] [address] [id number] [place] [id number] December, [facility] [place] [address] [id number] [place] [id number] December, [facility] [place] [address] [id number] [place] [id number] December, [facility] [place] [address] [id number] [place] [id number] December, [facility] [place] [address] [id number] [place] [id number] December, [facility] [place] [address] [id number] [place] [id number] December, [facility] [place] [address] [id number] [place] [id number] December, [facility] [place] [address] [id number] [place] [id number] December, [facility] [place] [address] [id number] [place] [id number] December, [facility] [place] [address] [id number] [place] [id number] Nov, [facility] [place] [address] [id number] [place] [id number] Nov, [facility] [place] [address] [id number] [place] [id number] Nov, [facility] [place] [address] [id number] [place] [id number] Nov, [facility] [address] [id number] [address] [place] [address] Nov, [facility] [address] [facility] [id number] [address] [place] [address] Nov, [facility] [address] [id number] [address] [place] [address] Sep, [facility] [address] [id number] [address] [place] [address] Sep, [facility] [address] [facility] [id number] [address] [place] [address] Jul, [facility] [address] [facility] [id number] [address] [place] [address] Jul, [facility] [address] [facility] [id number] [address] [place] [address] Jul, [facility] [address] [id number] [address] [place] [address] Jul, [facility] [address] [id number] [address] [place] [address] Jul, [facility] [address] [facility] [id number] [address] [place] [address] Jul, [facility] [address] [id number] [address] [place] [address] Jun, [facility] [address] [id number] [facility] [place] [address] Jun, [facility] [address] [id number] [address] [place] [address], [place] [address] Jun, [facility] [address] [id number] [address] [place] [address], [place] [address] Jun, [facility] [address] [id number] [address] [place] [address], [place] [address] May, [facility] [address] [id number] [address] [place] [address], [place] [address] May, [facility] [address] [id number] [address] [place] [address], [place] [address] Feb, [facility] [address] [id number] [address] [place] [address], [place] [address] Feb, [facility] [address] [id number] [address] [place] [address], [place] [address] Feb, [facility] [address] [id number] [address] [place] [address], [place] [address] Feb, [facility] [address] [id number] [address] [place] [address], [place] [address] Jan, [facility] [address] [id number] [address] [place] [address], [place] [address] Jan, [facility] [address] [id number] [address] [place] [address], [place] [address] Jan, [facility] [address] [id number] [address] [place] [address], [place] [address] Jan, [facility] [address] [id number] [address] [place] [address], [place] [address] December, [facility] [address] [id number] [address] [place] [address], [place] [address] December, [facility] [address] [id number] [address] [place] [address], [place] [address] December, [facility] [address] [id number] [address] [place] [address], [place] [address] December, [facility] [address] [id number] [address] [place] [address], [place] [address] December, [facility] [address] [id number] [address] [place] [address], [place] [address] December, [facility] [address] [id number] [address] [place] [address], [place] [address] December, [facility] [address] [id number] [address] [place] [address], [place] [address] December, [facility] [address] [id number] [address] [place] [address], [place] [address] December, [facility] [address] [id number] [address] [place] [address], [place] [address] December, [facility] [address] [id number] [address] [place] [address], [place] [address] December, [facility] [address] [id number] [address] [place] [address], [place] [address] December, [facility] [address] [id number] [address] [place] [address], [place] [address] December, [facility] [address] [id number] [address] [place] [address], [place] [address] December, [facility] [address] [id number] [address] [place] [address], [place] [address] December, [facility] [address] [id number] [address] [place] [address], [place] [address] December, [facility] [address] [id number] [address] [place] [address], [place] [address] December, [facility] [address] [id number] [address] [place] [address], [place] [address] Nov, [facility] [address] [id number] [facility] [place] [address] Nov, [facility] [address] [id number] [facility] [place] [address] Nov, [facility] [address] [id number] [address] [place] [address], [place] [address] Nov, [facility] [address] [id number] [address] [place] [address], [place] [address] Nov, [facility] [address] [id number] [address] [place] [address], [place] [address] Nov, [facility] [address] [id number] [address] [place] [address], [place] [address] Nov, [facility] [address] [id number] [address] [place] [address], [place] [address] Nov, [facility] [address] [id number] [address] [place] [address], [place] [address] Nov, [facility] [address] [id number] [address] [place] [address], [place] [address] Nov, [facility] [address] [id number] [address] [place] [address], [place] [address] Nov, [facility] [address] [id number] [address] [place] [address], [place] [address] Nov, [facility] [address] [id number] [address] [place] [address], [place] [address] Nov, [facility] [address] [id number] [address] [place] [address], [place] [address] Nov, [facility] [address] [id number] [address] [place] [address], [place] [address] Nov, [facility] [address] [id number] [address] [place] [address], [place] [address] Nov, [facility] [address] [id number] [address] [place] [address], [place] [address] Oct, [facility] [address] [id number] [address] [place] [address], [place] [address] Oct, [facility] [address] [id number] [address] [place] [address], [place] [address] Oct, [facility] [address] [id number] [address] [place] [address], [place] [address] Oct, [facility] [address] [id number] [address] [place] [address], [place] [address] Oct, [facility] [address] [id number] [address] [place] [address], [place] [address] Oct, [facility] [address] [id number] [address] [place] [address], [place] [address] Oct, [facility] [address] [id number] [address] [place] [address], [place] [address] Oct, [facility] [address] [id number] [address] [place] [address], [place] [address] Sep, [facility] [address] [id number] [address] [place] [address], [place] [address] Sep, [facility] [address] [id number] [address] [place] [address], [place] [address] Sep, [facility] [address] [id number] [address] [place] [address], [place] [address] Sep, [facility] [address] [id number] [address] [place] [address], [place] [address] Sep, [facility] [address] [id number] [address] [place] [address], [place] [address] Sep, [facility] [address] [id number] [address] [place] [address], [place] [address] Sep, [facility] [address] [id number] [address] [place] [address], [place] [address] Sep, [facility] [address] [id number] [address] [place] [address], [place] [address] Sep, [facility] [address] [id number] [address] [place] [address], [place] [address] Sep, [facility] [address] [id number] [address] [place] [address], [place] [address] Aug, [facility] [address] [id number] [address] [place] [address], [place] [address] Aug, [facility] [address] [id number] [address] [place] [address], [place] [address] Jul, [facility] [address] [id number] [address] [place] [address], [place] [address] Jul, [facility] [address] [id number] [address] [place] [address], [place] [address] Jul, [facility] [address] [id number] [address] [place] [address], [place] [address] Jul, [facility] [address] [id number] [address] [place] [address], [place] [address] Jul, [facility] [address] [id number] [address] [place] [address], [place] [address] Jul, [facility] [address] [id number] [address] [place] [address], [place] [address] Jun, [facility] [address] [id number] [address] [place] [address] Jun, [facility] [address] [id number] [address] [place] [address], [place] [address] Jun, [facility] [address] [id number] [address] [place] [address], [place] [address] May, [facility] [address] [id number] [address] [place] [address], [place] [address] December, [facility] [address] [id number] [address] [place] [address] December, [facility] [address] [id number] [address] [place] [address] Jan, [facility] [address] [id number] [address] [place] [address] Jan, [facility] [address] [id number] [address] [place] [address] Jan, [facility] [address] [id number] [address] [place] [address] Jan, [facility] [address] [id number] [address] [place] [address] December, [place] [address] [id number] [facility] [id number] December, [facility] [address] [facility] [id number] [address] [place] [address] December, [facility] [address] [id number] [address] [place] [address] December, [facility] [address] [id number] [address] [place] [address] December, [facility] [address] [id number] [address] [place] [address] [id number] Oct, [facility] [address] [facility] [id number] [address] [place] [id number] Jul, [facility] [address] [id number] [address] [place] [id number] Jul, [facility] [address] [id number] [address] [place] [phone] Jun, IMMUNIZATIONS No Known Immunizations SOCIAL HISTORY [...]
--- OUTSIDE RECORDS SUMMARY | 2019-11-24 00:52 | XMS REPORT ---
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 Name Role Phone KETURAH ANGELIA Unavailable PROBLEMS Type Condition ICD9-CM Code SGR46-YG Code Onset Dates Condition S tatus SNOMED Code Problem Irregular menstrual cycle N92.6 Acti ve 08947188 Problem Elevated blood pressure reading without diagnosi s of hypertension 796.2 Active 269155133 Problem Chronic gingivitis, plaque induced K05.10 Active 92403034 Problem Tobacco abuse Z72.0 Active 807094 05 Problem Constipation, unspecified constipation type K59.00 Active 90518997 Problem Lower abdominal pain R10.30 Active 11108379 Problem Anxiety F41.9 Active 35896224 Problem Fatigue, unspecified type R53.83 Acti ve [id number] ALLERGIES No Information ENCOUNTERS Encounter Location Date Diagnosis [facility] [address] [id number] [place] [id number] Oct, [facility] [address] [id number] [address] [place] [id number] Oct, Dental examination Z01.20 [facility] [address] [id number] [address] [place] [address] Oct, Dental examination Z01.20 an d Chronic gingivitis, plaque induced K05.10 [facility] [address] [id number] [address] [place] [address] Oct, Dental examination Z01.20 [facility] [address] [id number] [place] [id number] Jun, [facility] [address] [id number] [place] [id number] May, [facility] [address] [id number] [place] [id number] May, [facility] [place] [address] [id number] [place] [id number] Apr, [facility] [place] [address] [id number] [place] [id number] Apr, [facility] [place] [address] [id number] [place] [id number] Feb, Encounter for test, result unk nown Z32.00 [facility] [place] [address] [id number] [place] [id number] Feb, [facility] [place] [address] [id number] [place] [id number] Feb, [facility] [place] [address] [id number] [place] [id number] Feb, Encounter for test, result unk nown Z32.00 [facility] [place] [address] [id number] [place] [id number] Jan, [facility] [place] [address] [id number] [place] [id number] Jan, [facility] [place] [address] [id number] [place] [id number] Jan, [facility] [place] [address] [id number] [place] [id number] December, [facility] [place] [address] [id number] [place] [id number] December, [facility] [place] [address] [id number] [place] [id number] Nov, [facility] [place] [address] [id number] [place] [id number] Nov, [facility] [place] [address] [id number] [place] [id number] Nov, [facility] [place] [address] [id number] [place] [id number] Oct, [facility] [place] [address] [id number] [place] [id number] Oct, [facility] [place] [address] [id number] [place] [id number] Oct, [facility] [place] [address] [id number] [place] [id number] Oct, [facility] [place] [address] [id number] [place] [id number] Sep, [facility] [place] [address] [id number] [place] [id number] Sep, [facility] [place] [address] [id number] [place] [id number] Sep, [facility] [place] [address] [id number] [place] [id number] Sep, [facility] [place] [address] [id number] [place] [id number] Sep, [facility] [place] [address] [id number] [place] [id number] Aug, [facility] [place] [address] [id number] [place] [id number] Jul, [facility] [place] [address] [id number] [place] [id number] Jul, [facility] [place] [address] [id number] [place] [id number] Jun, [facility] [place] [address] [id number] [place] [id number] Jun, [facility] [place] [address] [id number] [place] [id number] Jun, [facility] [place] [address] [id number] [place] [id number] Jun, [facility] [place] [address] [id number] [place] [id number] Jun, [facility] [place] [address] [id number] [place] [id number] Jun, [facility] [place] [address] [id number] [place] [id number] May, [facility] [place] [address] [id number] [place] [id number] May, [facility] [place] [address] [id number] [place] [id number] May, [facility] [address] [id number] [address] [place] [address] Apr, Bronchitis J40 [facility] [address] [id number] [place] [id number] Mar, [facility] [address] [id number] [place] [id number] Feb, [facility] [address] [id number] [place] [id number] Feb, [facility] [address] [id number] [place] [id number] Feb, Sore throat J02.9 and Ear pain, right H9 2.01 [facility] [address] [facility] [id number] [place] [id number] Jan, [facility] [address] [id number] [place] [id number] Jan, Viral syndrome B34.9 ; Other seasonal al lergic rhinitis J30.2 and Post-nasal drip R09.82 [facility] [address] [facility] [id number] [place] [id number] Jan, [facility] [address] [facility] [id number] [place] [id number] Nov, [facility] [address] [id number] [place] [id number] Oct, test positive Z32.01 [facility] [address] [id number] [address] [place] [address] Oct, [facility] [id number] [place] [address] Oct, [facility] [address] [id number] [address] [place] [address] Sep, Kidney stones N20.0 [facility] [address] [id number] [address] [place] [address] Sep, [facility] [address] [facility] [id number] [address] [place] [address] 11 Sep, 2015 Pelvic pain R10.2 ; Left low er quadrant pain R10.32 ; Vaginal discharge N89.8 ; Routine screening for STI (sexually transmitted infection) Z11.3 ; Unprotected sexual intercourse Z72.51 ; Kidney stone N20.0 ; History of dyspareunia in female Z87.42 and Screening for malignant neoplasm of cervix Z12.4 [place] [id number] [place] [address] 12 Jun, 2015 Constipation, unspecified co nstipation type K59.00 ; Lower abdominal pain R10.30 ; Irregular menstrual cycle N92.6 ; Anxiety F41.9 ; Fatigue, unspecified type R53.83 and Tobacco abuse Z72.0 [facility] [address] [id number] [place] [id number] Jun, [facility] [address] [id number] [place] [id number] Jun, Nausea R11.0 [facility] [place] [address] [id number] [place] [id number] May, Alopecia L65.9 [facility] [place] [address] [id number] [place] [id number] May, [facility] [place] [address] [id number] [place] [id number] Apr, [facility] [place] [address] [id number] [place] [id number] Mar, [facility] [place] [address] [id number] [place] [id number] Mar, [facility] [address] [id number] [place] [id number] Mar, [facility] [address] [id number] [address] [place] [address] Mar, test negative V72. 41 [facility] [place] [address] [id number] [place] [id number] Mar, [facility] [place] [address] [id number] [place] [id number] Mar, [facility] [place] [address] [id number] [place] [id number] Feb, [facility] [place] [address] [id number] [place] [id number] Feb, [facility] [place] [address] [id number] [place] [id number] Feb, [facility] [place] [address] [id number] [place] [id number] Feb, [facility] [place] [address] [id number] [place] [id number] Feb, [facility] [place] [address] [id number] [place] [id number] Feb, [facility] [place] [address] [id number] [place] [id number] Feb, [facility] [place] [address] [id number] [place] [id number] Feb, [facility] [place] [address] [id number] [place] [id number] Feb, [facility] [place] [address] [id number] [place] [id number] Feb, [facility] [place] [address] [id number] [place] [id number] Feb, [facility] [place] [address] [id number] [place] [id number] Feb, [facility] [place] [address] [id number] [place] [id number] Jan, [facility] [place] [address] [id number] [place] [id number] Jan, [facility] [place] [address] [id number] [place] [id number] Jan, [facility] [address] [facility] [address] [id number] [place] [id number] Jan, Dental examination V72.2 [facility] [place] [address] [id number] [place] [id number] Jan, [facility] [place] [address] [id number] [place] [id number] Jan, [facility] [place] [address] [id number] [place] [id number] Jan, [facility] [place] [address] [id number] [place] [id number] Jan, [facility] [place] [address] [id number] [place] [id number] Jan, [facility] [place] [address] [id number] [place] [id number] Jan, [facility] [place] [address] [id number] [place] [id number] Jan, [facility] [place] [address] [id number] [place] [id number] Jan, [facility] [place] [address] [id number] [place] [id number] Jan, [facility] [place] [address] [id number] [place] [id number] Jan, [facility] [place] [address] [id number] [place] [id number] Jan, [facility] [place] [address] [id number] [place] [id number] Jan, [facility] [place] [address] [id number] [place] [id number] Jan, [facility] [place] [address] [id number] [place] [id number] Jan, [facility] [place] [address] [id number] [place] [id number] Jan, [facility] [place] [address] [id number] [place] [id number] Jan, [facility] [place] [address] [id number] [place] [id number] Jan, [facility] [place] [address] [id number] [place] [id number] Jan, [facility] [place] [address] [id number] [place] [id number] Jan, [facility] [place] [address] [id number] [place] [id number] Jan, [facility] [place] [address] [id number] [place] [id number] Jan, [facility] [place] [address] [id number] [place] [id number] Jan, [facility] [place] [address] [id number] [place] [id number] Jan, [facility] [place] [address] [id number] [place] [id number] Jan, [facility] [place] [address] [id number] [place] [id number] December, [facility] [place] [address] [id number] [place] [id number] December, [facility] [place] [address] [id number] [place] [id number] December, [facility] [place] [address] [id number] [place] [id number] December, [facility] [place] [address] [id number] [place] [id number] December, [facility] [place] [address] [id number] [place] [id number] December, [facility] [place] [address] [id number] [place] [id number] December, [facility] [place] [address] [id number] [place] [id number] December, [facility] [place] [address] [id number] [place] [id number] December, [facility] [place] [address] [id number] [place] [id number] December, [facility] [place] [address] [id number] [place] [id number] December, [facility] [place] [address] [id number] [place] [id number] December, [facility] [place] [address] [id number] [place] [id number] December, [facility] [place] [address] [id number] [place] [id number] December, [facility] [place] [address] [id number] [place] [id number] Nov, [facility] [place] [address] [id number] [place] [id number] Nov, [facility] [place] [address] [id number] [place] [id number] Nov, [facility] [place] [address] [id number] [place] [id number] Nov, [facility] [address] [id number] [address] [place] [address] Nov, [facility] [address] [facility] [id number] [address] [place] [address] Nov, [facility] [address] [id number] [address] [place] [address] Sep, [facility] [address] [id number] [address] [place] [address] Sep, [facility] [address] [facility] [id number] [address] [place] [address] Jul, [facility] [address] [facility] [id number] [address] [place] [address] Jul, [facility] [address] [facility] [id number] [address] [place] [address] Jul, [facility] [address] [id number] [address] [place] [address] Jul, [facility] [address] [id number] [address] [place] [address] Jul, [facility] [address] [facility] [id number] [address] [place] [address] Jul, [facility] [address] [id number] [address] [place] [address] Jun, [facility] [address] [id number] [facility] [place] [address] Jun, [facility] [address] [id number] [address] [place] [address], [place] [address] Jun, [facility] [address] [id number] [address] [place] [address], [place] [address] Jun, [facility] [address] [id number] [address] [place] [address], [place] [address] May, [facility] [address] [id number] [address] [place] [address], [place] [address] May, [facility] [address] [id number] [address] [place] [address], [place] [address] Feb, [facility] [address] [id number] [address] [place] [address], [place] [address] Feb, [facility] [address] [id number] [address] [place] [address], [place] [address] Feb, [facility] [address] [id number] [address] [place] [address], [place] [address] Feb, [facility] [address] [id number] [address] [place] [address], [place] [address] Jan, [facility] [address] [id number] [address] [place] [address], [place] [address] Jan, [facility] [address] [id number] [address] [place] [address], [place] [address] Jan, [facility] [address] [id number] [address] [place] [address], [place] [address] Jan, [facility] [address] [id number] [address] [place] [address], [place] [address] December, [facility] [address] [id number] [address] [place] [address], [place] [address] December, [facility] [address] [id number] [address] [place] [address], [place] [address] December, [facility] [address] [id number] [address] [place] [address], [place] [address] December, [facility] [address] [id number] [address] [place] [address], [place] [address] December, [facility] [address] [id number] [address] [place] [address], [place] [address] December, [facility] [address] [id number] [address] [place] [address], [place] [address] December, [facility] [address] [id number] [address] [place] [address], [place] [address] December, [facility] [address] [id number] [address] [place] [address], [place] [address] December, [facility] [address] [id number] [address] [place] [address], [place] [address] December, [facility] [address] [id number] [address] [place] [address], [place] [address] December, [facility] [address] [id number] [address] [place] [address], [place] [address] December, [facility] [address] [id number] [address] [place] [address], [place] [address] December, [facility] [address] [id number] [address] [place] [address], [place] [address] December, [facility] [address] [id number] [address] [place] [address], [place] [address] December, [facility] [address] [id number] [address] [place] [address], [place] [address] December, [facility] [address] [id number] [address] [place] [address], [place] [address] December, [facility] [address] [id number] [address] [place] [address], [place] [address] Nov, [facility] [address] [id number] [facility] [place] [address] Nov, [facility] [address] [id number] [facility] [place] [address] Nov, [facility] [address] [id number] [address] [place] [address], [place] [address] Nov, [facility] [address] [id number] [address] [place] [address], [place] [address] Nov, [facility] [address] [id number] [address] [place] [address], [place] [address] Nov, [facility] [address] [id number] [address] [place] [address], [place] [address] Nov, [facility] [address] [id number] [address] [place] [address], [place] [address] Nov, [facility] [address] [id number] [address] [place] [address], [place] [address] Nov, [facility] [address] [id number] [address] [place] [address], [place] [address] Nov, [facility] [address] [id number] [address] [place] [address], [place] [address] Nov, [facility] [address] [id number] [address] [place] [address], [place] [address] Nov, [facility] [address] [id number] [address] [place] [address], [place] [address] Nov, [facility] [address] [id number] [address] [place] [address], [place] [address] Nov, [facility] [address] [id number] [address] [place] [address], [place] [address] Nov, [facility] [address] [id number] [address] [place] [address], [place] [address] Nov, [facility] [address] [id number] [address] [place] [address], [place] [address] Oct, [facility] [address] [id number] [address] [place] [address], [place] [address] Oct, [facility] [address] [id number] [address] [place] [address], [place] [address] Oct, [facility] [address] [id number] [address] [place] [address], [place] [address] Oct, [facility] [address] [id number] [address] [place] [address], [place] [address] Oct, [facility] [address] [id number] [address] [place] [address], [place] [address] Oct, [facility] [address] [id number] [address] [place] [address], [place] [address] Oct, [facility] [address] [id number] [address] [place] [address], [place] [address] Oct, [facility] [address] [id number] [address] [place] [address], [place] [address] Sep, [facility] [address] [id number] [address] [place] [address], [place] [address] Sep, [facility] [address] [id number] [address] [place] [address], [place] [address] Sep, [facility] [address] [id number] [address] [place] [address], [place] [address] Sep, [facility] [address] [id number] [address] [place] [address], [place] [address] Sep, [facility] [address] [id number] [address] [place] [address], [place] [address] Sep, [facility] [address] [id number] [address] [place] [address], [place] [address] Sep, [facility] [address] [id number] [address] [place] [address], [place] [address] Sep, [facility] [address] [id number] [address] [place] [address], [place] [address] Sep, [facility] [address] [id number] [address] [place] [address], [place] [address] Sep, [facility] [address] [id number] [address] [place] [address], [place] [address] Aug, [facility] [address] [id number] [address] [place] [address], [place] [address] Aug, [facility] [address] [id number] [address] [place] [address], [place] [address] Jul, [facility] [address] [id number] [address] [place] [address], [place] [address] Jul, [facility] [address] [id number] [address] [place] [address], [place] [address] Jul, [facility] [address] [id number] [address] [place] [address], [place] [address] Jul, [facility] [address] [id number] [address] [place] [address], [place] [address] Jul, [facility] [address] [id number] [address] [place] [address], [place] [address] Jul, [facility] [address] [id number] [address] [place] [address], [place] [address] Jun, [facility] [address] [id number] [address] [place] [address] Jun, [facility] [address] [id number] [address] [place] [address], [place] [address] Jun, [facility] [address] [id number] [address] [place] [address], [place] [address] May, [facility] [address] [id number] [address] [place] [address], [place] [address] December, [facility] [address] [id number] [address] [place] [address] December, [facility] [address] [id number] [address] [place] [address] Jan, [facility] [address] [id number] [address] [place] [id number] Jan, [facility] [address] [id number] [address] [place] [address] Jan, [facility] [address] [id number] [address] [place] [address] Jan, [facility] [address] [id number] [address] [place] [address] December, [place] [address] [id number] [place] [facility] [id number] December, [facility] [address] [facility] [id number] [address] [place] [phone] December, [facility] [address] [id number] [address] [place] [phone] December, [facility] [address] [id number] [address] [place] [phone] December, [facility] [address] [id number] [address] [place] [id number] Oct, [facility] [address] [facility] [id number] [address] [place] [phone] Jul, [facility] [address] [id number] [address] [place] [phone] Jul, [facility] [address] [id number] [address] [place] [phone] Jun, IMMUNIZATIONS No Known Immunizations SOCIAL HISTORY [...]
--- OUTSIDE RECORDS SUMMARY | 2019-11-24 00:52 | XMS REPORT ---
Author Author Vilma REBOLLAR Organization [facility] Address [address] [place] [address] Care Team Providers Care Claim Analyst Name Role Phone KETURAH ANGELIA Unavailable PROBLEMS Type Condition ICD9-CM Code CYO79-CW Code Onset Dates Condition S tatus SNOMED Code Problem Irregular menstrual cycle N92.6 Acti ve 78170314 Problem Elevated blood pressure reading without diagnosi s of hypertension 796.2 Active 625507772 Problem Chronic gingivitis, plaque induced K05.10 Active 00558811 Problem Tobacco abuse Z72.0 Active 305298 05 Problem Constipation, unspecified constipation type K59.00 Active 29535823 Problem Lower abdominal pain R10.30 Active 74401296 Problem Anxiety F41.9 Active 14659885 Problem Fatigue, unspecified type R53.83 Acti ve 89813312 ALLERGIES No Information ENCOUNTERS Encounter Location Date Diagnosis [facility] [address] [id number] [place] [id number] Oct, [facility] [address] [id number] [address] [place] [address] [id number] Oct, Dental examination Z01.20 [facility] [address] [id number] [address] [place] [address] Oct, Dental examination Z01.20 an d Chronic gingivitis, plaque induced K05.10 [facility] [address] [id number] [address] [place] [address] Oct, Dental examination Z01.20 [facility] [address] [id number] [place] [id number] Jun, [facility] [address] [id number] [place] [id number] May, [facility] [address] [id number] [place] [id number] May, [facility] [place] [address] [id number] [place] [id number] Apr, [facility] [place] [address] [id number] [place] [id number] Apr, [facility] [place] [address] [id number] [place] [id number] Feb, Encounter for test, result unk nown Z32.00 [facility] [place] [address] [id number] [place] [id number] Feb, [facility] [place] [address] [id number] [place] [id number] Feb, [facility] [place] [address] [id number] [place] [id number] Feb, Encounter for test, result unk nown Z32.00 [facility] [place] [address] [id number] [place] [id number] Jan, [facility] [place] [address] [id number] [place] [id number] Jan, [facility] [place] [address] [id number] [place] [id number] Jan, [facility] [place] [address] [id number] [place] [id number] December, [facility] [place] [address] [id number] [place] [id number] December, [facility] [place] [address] [id number] [place] [id number] Nov, [facility] [place] [address] [id number] [place] [id number] Nov, [facility] [place] [address] [id number] [place] [id number] Nov, [facility] [place] [address] [id number] [place] [id number] Oct, [facility] [place] [address] [id number] [place] [id number] Oct, [facility] [place] [address] [id number] [place] [id number] Oct, [facility] [place] [address] [id number] [place] [id number] Oct, [facility] [place] [address] [id number] [place] [id number] Sep, [facility] [place] [address] [id number] [place] [id number] Sep, [facility] [place] [address] [id number] [place] [id number] Sep, [facility] [place] [address] [id number] [place] [id number] Sep, [facility] [place] [address] [id number] [place] [id number] Sep, [facility] [place] [address] [id number] [place] [id number] Aug, [facility] [place] [address] [id number] [place] [id number] Jul, [facility] [place] [address] [id number] [place] [id number] Jul, [facility] [place] [address] [id number] [place] [id number] Jun, [facility] [place] [address] [id number] [place] [id number] Jun, [facility] [place] [address] [id number] [place] [id number] Jun, [facility] [place] [address] [id number] [place] [id number] Jun, [facility] [place] [address] [id number] [place] [id number] Jun, [facility] [place] [address] [id number] [place] [id number] Jun, [facility] [place] [address] [id number] [place] [id number] May, [facility] [place] [address] [id number] [place] [id number] May, [facility] [place] [address] [id number] [place] [id number] May, [facility] [address] [id number] [address] [place] [address] Apr, Bronchitis J40 [facility] [address] [id number] [place] [id number] Mar, [facility] [address] [id number] [place] [id number] Feb, [facility] [address] [id number] [place] [id number] Feb, [facility] [address] [id number] [place] [id number] Feb, Sore throat J02.9 and Ear pain, right H9 2.01 [facility] [address] [facility] [id number] [place] [id number] Jan, [facility] [address] [id number] [place] [id number] Jan, Viral syndrome B34.9 ; Other seasonal al lergic rhinitis J30.2 and Post-nasal drip R09.82 [facility] [address] [facility] [id number] [place] [id number] Jan, [facility] [address] [facility] [id number] [place] [id number] Nov, [facility] [address] [id number] [place] [id number] Oct, test positive Z32.01 [facility] [address] [id number] [address] [place] [address] Oct, [facility] [id number] [place] [address] Oct, [facility] [address] [id number] [address] [place] [address] Sep, Kidney stones N20.0 [facility] [address] [id number] [address] [place] [address] Sep, [facility] [address] [facility] [id number] [address] [place] [address] 11 Sep, 2015 Pelvic pain R10.2 ; Left low er quadrant pain R10.32 ; Vaginal discharge N89.8 ; Routine screening for STI (sexually transmitted infection) Z11.3 ; Unprotected sexual intercourse Z72.51 ; Kidney stone N20.0 ; History of dyspareunia in female Z87.42 and Screening for malignant neoplasm of cervix Z12.4 [place] [address] [id number] [address] [place] [address] 12 Jun, 2015 Constipation, unspecified co nstipation type K59.00 ; Lower abdominal pain R10.30 ; Irregular menstrual cycle N92.6 ; Anxiety F41.9 ; Fatigue, unspecified type R53.83 and Tobacco abuse Z72.0 [facility] [address] [id number] [place] [id number] Jun, [facility] [address] [id number] [place] [id number] Jun, Nausea R11.0 [facility] [place] [address] [id number] [place] [id number] May, Alopecia L65.9 [facility] [place] [address] [id number] [place] [id number] May, [facility] [place] [address] [id number] [place] [id number] Apr, [facility] [place] [address] [id number] [place] [id number] Mar, [facility] [place] [address] [id number] [place] [id number] Mar, [facility] [address] [id number] [place] [id number] Mar, [facility] [address] [id number] [address] [place] [address] Mar, test negative V72. 41 [facility] [place] [address] [id number] [place] [id number] Mar, [facility] [place] [address] [id number] [place] [id number] Mar, [facility] [place] [address] [id number] [place] [id number] Feb, [facility] [place] [address] [id number] [place] [id number] Feb, [facility] [place] [address] [id number] [place] [id number] Feb, [facility] [place] [address] [id number] [place] [id number] Feb, [facility] [place] [address] [id number] [place] [id number] Feb, [facility] [place] [address] [id number] [place] [id number] Feb, [facility] [place] [address] [id number] [place] [id number] Feb, [facility] [place] [address] [id number] [place] [id number] Feb, [facility] [place] [address] [id number] [place] [id number] Feb, [facility] [place] [address] [id number] [place] [id number] Feb, [facility] [place] [address] [id number] [place] [id number] Feb, [facility] [place] [address] [id number] [place] [id number] Feb, [facility] [place] [address] [id number] [place] [id number] Jan, [facility] [place] [address] [id number] [place] [id number] Jan, [facility] [place] [address] [id number] [place] [id number] Jan, [facility] [address] [id number] [place] [id number] Jan, Dental examination V72.2 [facility] [place] [address] [id number] [place] [id number] Jan, [facility] [place] [address] [id number] [place] [id number] Jan, [facility] [place] [address] [id number] [place] [id number] Jan, [facility] [place] [address] [id number] [place] [id number] Jan, [facility] [place] [address] [id number] [place] [id number] Jan, [facility] [place] [address] [id number] [place] [id number] Jan, [facility] [place] [address] [id number] [place] [id number] Jan, [facility] [place] [address] [id number] [place] [id number] Jan, [facility] [place] [address] [id number] [place] [id number] Jan, [facility] [place] [address] [id number] [place] [id number] Jan, [facility] [place] [address] [id number] [place] [id number] Jan, [facility] [place] [address] [id number] [place] [id number] Jan, [facility] [place] [address] [id number] [place] [id number] Jan, [facility] [place] [address] [id number] [place] [id number] Jan, [facility] [place] [address] [id number] [place] [id number] Jan, [facility] [place] [address] [id number] [place] [id number] Jan, [facility] [place] [address] [id number] [place] [id number] Jan, [facility] [place] [address] [id number] [place] [id number] Jan, [facility] [place] [address] [id number] [place] [id number] Jan, [facility] [place] [address] [id number] [place] [id number] Jan, [facility] [place] [address] [id number] [place] [id number] Jan, [facility] [place] [address] [id number] [place] [id number] Jan, [facility] [place] [address] [id number] [place] [id number] Jan, [facility] [place] [address] [id number] [place] [id number] Jan, [facility] [place] [address] [id number] [place] [id number] December, [facility] [place] [address] [id number] [place] [id number] December, [facility] [place] [address] [id number] [place] [id number] December, [facility] [place] [address] [id number] [place] [id number] December, [facility] [place] [address] [id number] [place] [id number] December, [facility] [place] [address] [id number] [place] [id number] December, [facility] [place] [address] [id number] [place] [id number] December, [facility] [place] [address] [id number] [place] [id number] December, [facility] [place] [address] [id number] [place] [id number] December, [facility] [place] [address] [id number] [place] [id number] December, [facility] [place] [address] [id number] [place] [id number] December, [facility] [place] [address] [id number] [place] [id number] December, [facility] [place] [address] [id number] [place] [id number] December, [facility] [place] [address] [id number] [place] [id number] December, [facility] [place] [address] [id number] [place] [id number] Nov, [facility] [place] [address] [id number] [place] [id number] Nov, [facility] [place] [address] [id number] [place] [id number] Nov, [facility] [place] [address] [id number] [place] [id number] Nov, [facility] [address] [id number] [address] [place] [address] Nov, [facility] [address] [facility] [id number] [address] [place] [address] Nov, [facility] [address] [id number] [address] [place] [address] Sep, [facility] [address] [id number] [address] [place] [address] Sep, [facility] [address] [facility] [id number] [address] [place] [address] Jul, [facility] [address] [facility] [id number] [address] [place] [address] Jul, [facility] [address] [facility] [id number] [address] [place] [address] Jul, [facility] [address] [id number] [address] [place] [address] Jul, [facility] [address] [id number] [address] [place] [address] Jul, [facility] [address] [facility] [id number] [address] [place] [address] Jul, [facility] [address] [id number] [address] [place] [address] Jun, [facility] [address] [id number] [facility] [place] [address] Jun, [facility] [address] [id number] [address] [place] [address], [place] [address] Jun, [facility] [address] [id number] [address] [place] [address], [place] [address] Jun, [facility] [address] [id number] [address] [place] [address], [place] [address] May, [facility] [address] [id number] [address] [place] [address], [place] [address] May, [facility] [address] [id number] [address] [place] [address], [place] [address] Feb, [facility] [address] [id number] [address] [place] [address], [place] [address] Feb, [facility] [address] [id number] [address] [place] [address], [place] [address] Feb, [facility] [address] [id number] [address] [place] [address], [place] [address] Feb, [facility] [address] [id number] [address] [place] [address], [place] [address] Jan, [facility] [address] [id number] [address] [place] [address], [place] [address] Jan, [facility] [address] [id number] [address] [place] [address], [place] [address] Jan, [facility] [address] [id number] [address] [place] [address], [place] [address] Jan, [facility] [address] [id number] [address] [place] [address], [place] [address] December, [facility] [address] [id number] [address] [place] [address], [place] [address] December, [facility] [address] [id number] [address] [place] [address], [place] [address] December, [facility] [address] [id number] [address] [place] [address], [place] [address] December, [facility] [address] [id number] [address] [place] [address], [place] [address] December, [facility] [address] [id number] [address] [place] [address], [place] [address] December, [facility] [address] [id number] [address] [place] [address], [place] [address] December, [facility] [address] [id number] [address] [place] [address], [place] [address] December, [facility] [address] [id number] [address] [place] [address], [place] [address] December, [facility] [address] [id number] [address] [place] [address], [place] [address] December, [facility] [address] [id number] [address] [place] [address], [place] [address] December, [facility] [address] [id number] [address] [place] [address], [place] [address] December, [facility] [address] [id number] [address] [place] [address], [place] [address] December, [facility] [address] [id number] [address] [place] [address], [place] [address] December, [facility] [address] [id number] [address] [place] [address], [place] [address] December, [facility] [address] [id number] [address] [place] [address], [place] [address] December, [facility] [address] [id number] [address] [place] [address], [place] [address] December, [facility] [address] [id number] [address] [place] [address], [place] [address] Nov, [facility] [address] [id number] [facility] [place] [address] Nov, [facility] [address] [id number] [facility] [place] [address] Nov, [facility] [address] [id number] [address] [place] [address], [place] [address] Nov, [facility] [address] [id number] [address] [place] [address], [place] [address] Nov, [facility] [address] [id number] [address] [place] [address], [place] [address] Nov, [facility] [address] [id number] [address] [place] [address], [place] [address] Nov, [facility] [address] [id number] [address] [place] [address], [place] [address] Nov, [facility] [address] [id number] [address] [place] [address], [place] [address] Nov, [facility] [address] [id number] [address] [place] [address], [place] [address] Nov, [facility] [address] [id number] [address] [place] [address], [place] [address] Nov, [facility] [address] [id number] [address] [place] [address], [place] [address] Nov, [facility] [address] [id number] [address] [place] [address], [place] [address] Nov, [facility] [address] [id number] [address] [place] [address], [place] [address] Nov, [facility] [address] [id number] [address] [place] [address], [place] [address] Nov, [facility] [address] [id number] [address] [place] [address], [place] [address] Nov, [facility] [address] [id number] [address] [place] [address], [place] [address] Oct, [facility] [address] [id number] [address] [place] [address], [place] [address] Oct, [facility] [address] [id number] [address] [place] [address], [place] [address] Oct, [facility] [address] [id number] [address] [place] [address], [place] [address] Oct, [facility] [address] [id number] [address] [place] [address], [place] [address] Oct, [facility] [address] [id number] [address] [place] [address], [place] [address] Oct, [facility] [address] [id number] [address] [place] [address], [place] [address] Oct, [facility] [address] [id number] [address] [place] [address], [place] [address] Oct, [facility] [address] [id number] [address] [place] [address], [place] [address] Sep, [facility] [address] [id number] [address] [place] [address], [place] [address] Sep, [facility] [address] [id number] [address] [place] [address], [place] [address] Sep, [facility] [address] [id number] [address] [place] [address], [place] [address] Sep, [facility] [address] [id number] [address] [place] [address], [place] [address] Sep, [facility] [address] [id number] [address] [place] [address], [place] [address] Sep, [facility] [address] [id number] [address] [place] [address], [place] [address] Sep, [facility] [address] [id number] [address] [place] [address], [place] [address] Sep, [facility] [address] [id number] [address] [place] [address], [place] [address] Sep, [facility] [address] [id number] [address] [place] [address], [place] [address] Sep, [facility] [address] [id number] [address] [place] [address], [place] [address] Aug, [facility] [address] [id number] [address] [place] [address], [place] [address] Aug, [facility] [address] [id number] [address] [place] [address], [place] [address] Jul, [facility] [address] [id number] [address] [place] [address], [place] [address] Jul, [facility] [address] [id number] [address] [place] [address], [place] [address] Jul, [facility] [address] [id number] [address] [place] [address], [place] [address] Jul, [facility] [address] [id number] [address] [place] [address], [place] [address] Jul, [facility] [address] [id number] [address] [place] [address], [place] [address] Jul, [facility] [address] [id number] [address] [place] [address], [place] [address] Jun, [facility] [address] [id number] [address] [place] [address] Jun, [facility] [address] [id number] [address] [place] [address], [place] [address] Jun, [facility] [address] [id number] [address] [place] [address], [place] [address] May, [facility] [address] [id number] [address] [place] [address], [place] [address] December, [facility] [address] [id number] [address] [place] [address] December, [facility] [address] [id number] [address] [place] [address] Jan, [facility] [address] [id number] [address] [place] [address] Jan, [facility] [address] [id number] [address] [place] [address] Jan, [facility] [address] [id number] [address] [place] [address] Jan, [facility] [address] [id number] [address] [place] [address] December, [place] [address] [id number] [facility] [id number] December, [facility] [address] [facility] [id number] [address] [place] [address] December, [facility] [address] [id number] [address] [place] [address] December, [facility] [address] [id number] [address] [place] [address] December, [facility] [address] [id number] [address] [place] [id number] Oct, [facility] [address] [facility] [id number] [address] [place] [id number] Jul, [facility] [address] [id number] [address] [place] [id number] Jul, [facility] [address] [id number] [address] [place] [id number] Jun, IMMUNIZATIONS No Known Immunizations SOCIAL HISTORY [...]
--- OUTSIDE RECORDS SUMMARY | 2019-11-24 00:53 | XMS REPORT ---
Author Author Vilma REYES Y Organization [facility] Address [address] [place] [address] Care Team Providers Care Human Resources Benefits Coordinator Name Role Phone AYLA EUBANKSMACKBURTON Unavailable PROBLEMS Type Condition ICD9-CM Code EBI97-PM Code Onset Dates Condition S tatus SNOMED Code Problem Irregular menstrual cycle N92.6 Acti ve 55395408 Problem Elevated blood pressure reading without diagnosi s of hypertension 796.2 Active 228481082 Problem Chronic gingivitis, plaque induced K05.10 Active 65305488 Problem Tobacco abuse Z72.0 Active 793176 05 Problem Constipation, unspecified constipation type K59.00 Active 97907758 Problem Lower abdominal pain R10.30 Active 94762800 Problem Anxiety F41.9 Active 01289527 Problem Fatigue, unspecified type R53.83 Acti ve [id number] ALLERGIES No Information ENCOUNTERS Encounter Location Date Diagnosis [facility] [address] [id number] [place] [id number] Oct, [facility] [address] [id number] [address] [place] [id number] Oct, Dental examination Z01.20 [facility] [address] [id number] [address] [place] [address] Oct, Dental examination Z01.20 an d Chronic gingivitis, plaque induced K05.10 [facility] [address] [id number] [address] [place] [address] Oct, Dental examination Z01.20 [facility] [address] [id number] [place] [id number] Jun, [facility] [address] [id number] [place] [id number] May, [facility] [address] [id number] [place] [id number] May, [facility] [place] [address] [id number] [place] [id number] Apr, [facility] [place] [address] [id number] [place] [id number] Apr, [facility] [place] [address] [id number] [place] [id number] Feb, Encounter for test, result unk nown Z32.00 [facility] [place] [address] [id number] [place] [id number] Feb, [facility] [place] [address] [id number] [place] [id number] Feb, [facility] [place] [address] [id number] [place] [id number] Feb, Encounter for test, result unk nown Z32.00 [facility] [place] [address] [id number] [place] [id number] Jan, [facility] [place] [address] [id number] [place] [id number] Jan, [facility] [place] [address] [id number] [place] [id number] Jan, [facility] [place] [address] [id number] [place] [id number] December, [facility] [place] [address] [id number] [place] [id number] December, [facility] [place] [address] [id number] [place] [id number] Nov, [facility] [place] [address] [id number] [place] [id number] Nov, [facility] [place] [address] [id number] [place] [id number] Nov, [facility] [place] [address] [id number] [place] [id number] Oct, [facility] [place] [address] [id number] [place] [id number] Oct, [facility] [place] [address] [id number] [place] [id number] Oct, [facility] [place] [address] [id number] [place] [id number] Oct, [facility] [place] [address] [id number] [place] [id number] Sep, [facility] [place] [address] [id number] [place] [id number] Sep, [facility] [place] [address] [id number] [place] [id number] Sep, [facility] [place] [address] [id number] [place] [id number] Sep, [facility] [place] [address] [id number] [place] [id number] Sep, [facility] [place] [address] [id number] [place] [id number] Aug, [facility] [place] [address] [id number] [place] [id number] Jul, [facility] [place] [address] [id number] [place] [id number] Jul, [facility] [place] [address] [id number] [place] [id number] Jun, [facility] [place] [address] [id number] [place] [id number] Jun, [facility] [place] [address] [id number] [place] [id number] Jun, [facility] [place] [address] [id number] [place] [id number] Jun, [facility] [place] [address] [id number] [place] [id number] Jun, [facility] [place] [address] [id number] [place] [id number] Jun, [facility] [place] [address] [id number] [place] [id number] May, [facility] [place] [address] [id number] [place] [id number] May, [facility] [place] [address] [id number] [place] [id number] May, [facility] [address] [address] Apr, Bronchitis J40 [facility] [place] [address] [id number] [place] [id number] Mar, [facility] [place] [address] [id number] [place] [id number] Feb, [facility] [place] [address] [id number] [place] [id number] Feb, [facility] [place] [address] [id number] [place] [id number] Feb, Sore throat J02.9 and Ear pain, right H9 2.01 [facility] [place] [address] [id number] [place] [id number] Jan, [facility] [place] [address] [id number] [place] [id number] Jan, Viral syndrome B34.9 ; Other seasonal al lergic rhinitis J30.2 and Post-nasal drip R09.82 [facility] [place] [address] [id number] [place] [id number] Jan, [facility] [place] [address] [id number] [place] [id number] Nov[facility] [place] [facility] [address] [facility] [id number] [place] [id number] Oct, test positive Z32.01 [facility] [address] [place] [address] Oct, [facility] [address] [id number] [address] [place] [address] Oct, [facility] [address] [id number] [address] [place] [address] Sep, Kidney stones N20.0 [facility] [address] [id number] [address] [place] [address] Sep, [facility] [address] [id number] [address] [place] [address] 11 Sep, 2015 Pelvic pain R10.2 ; Left low er quadrant pain R10.32 ; Vaginal discharge N89.8 ; Routine screening for STI (sexually transmitted infection) Z11.3 ; Unprotected sexual intercourse Z72.51 ; Kidney stone N20.0 ; History of dyspareunia in female Z87.42 and Screening for malignant neoplasm of cervix Z12.4 [facility] [address] [id number] [address] [place] [address] Jun, Constipation, unspecified co nstipation type K59.00 ; Lower abdominal pain R10.30 ; Irregular menstrual cycle N92.6 ; Anxiety F41.9 ; Fatigue, unspecified type R53.83 and Tobacco abuse Z72.0 [facility] [place] [address] [id number] [place] [id number] Jun, [facility] [place] [address] [id number] [place] [id number] Jun, Nausea R11.0 [facility] [place] [address] [id number] [place] [id number] May, Alopecia L65.9 [facility] [place] [address] [id number] [place] [id number] May, [facility] [place] [address] [id number] [place] [id number] Apr, [facility] [place] [address] [id number] [place] [id number] Mar, [facility] [place] [address] [id number] [place] [id number] Mar, [facility] [place] [address] [id number] [place] [id number] Mar, [facility] [address] [id number] [address] [place] [address] Mar, test negative V72. 41 [facility] [place] [address] [id number] [place] [id number] Mar, [facility] [place] [address] [id number] [place] [id number] Mar, [facility] [place] [address] [id number] [place] [id number] Feb, [facility] [place] [address] [id number] [place] [id number] Feb, [facility] [place] [address] [id number] [place] [id number] Feb, [facility] [place] [address] [id number] [place] [id number] Feb, [facility] [place] [address] [id number] [place] [id number] Feb, [facility] [place] [address] [id number] [place] [id number] Feb, [facility] [place] [address] [id number] [place] [id number] Feb, [facility] [place] [address] [id number] [place] [id number] Feb, [facility] [place] [address] [id number] [place] [id number] Feb, [facility] [place] [address] [id number] [place] [id number] Feb, [facility] [place] [address] [id number] [place] [id number] Feb, [facility] [place] [address] [id number] [place] [id number] Feb, [facility] [place] [address] [id number] [place] [id number] Jan, [facility] [place] [address] [id number] [place] [id number] Jan, [facility] [place] [address] [id number] [place] [id number] Jan, [facility] [address] [id number] [place] [id number] Jan, Dental examination V72.2 [facility] [place] [address] [id number] [place] [id number] Jan, [facility] [place] [address] [id number] [place] [id number] Jan, [facility] [place] [address] [id number] [place] [id number] Jan, [facility] [place] [address] [id number] [place] [id number] Jan, [facility] [place] [address] [id number] [place] [id number] Jan, [facility] [place] [address] [id number] [place] [id number] Jan, [facility] [place] [address] [id number] [place] [id number] Jan, [facility] [place] [address] [id number] [place] [id number] Jan, [facility] [place] [address] [id number] [place] [id number] Jan, [facility] [place] [address] [id number] [place] [id number] Jan, [facility] [place] [address] [id number] [place] [id number] Jan, [facility] [place] [address] [id number] [place] [id number] Jan, [facility] [place] [address] [id number] [place] [id number] Jan, [facility] [place] [address] [id number] [place] [id number] Jan, [facility] [place] [address] [id number] [place] [id number] Jan, [facility] [place] [address] [id number] [place] [id number] Jan, [facility] [place] [address] [id number] [place] [id number] Jan, [facility] [place] [address] [id number] [place] [id number] Jan, [facility] [place] [address] [id number] [place] [id number] Jan, [facility] [place] [address] [id number] [place] [id number] Jan, [facility] [place] [address] [id number] [place] [id number] Jan, [facility] [place] [address] [id number] [place] [id number] Jan, [facility] [place] [address] [id number] [place] [id number] Jan, [facility] [place] [address] [id number] [place] [id number] Jan, [facility] [place] [address] [id number] [place] [id number] December, [facility] [place] [address] [id number] [place] [id number] December, [facility] [place] [address] [id number] [place] [id number] December, [facility] [place] [address] [id number] [place] [id number] December, [facility] [place] [address] [id number] [place] [id number] December, [facility] [place] [address] [id number] [place] [id number] December, [facility] [place] [address] [id number] [place] [id number] December, [facility] [place] [address] [id number] [place] [id number] December, [facility] [place] [address] [id number] [place] [id number] December, [facility] [place] [address] [id number] [place] [id number] December, [facility] [place] [address] [id number] [place] [id number] December, [facility] [place] [address] [id number] [place] [id number] December, [facility] [place] [address] [id number] [place] [id number] December, [facility] [place] [address] [id number] [place] [id number] December, [facility] [place] [address] [id number] [place] [id number] Nov, [facility] [place] [address] [id number] [place] [id number] Nov, [facility] [place] [address] [id number] [place] [id number] Nov, [facility] [place] [address] [id number] [place] [id number] Nov, [facility] [address] [id number] [address] [place] [address] Nov, [facility] [address] [facility] [place] [id number] [address] [place] [address] Nov, [facility] [address] [facility] [place] [id number] [address] [place] [address] Sep, [facility] [address] [facility] [place] [id number] [address] [place] [address] Sep, [facility] [address] [facility] [place] [id number] [address] [place] [address] Jul, [facility] [address] [facility] [place] [id number] [address] [place] [address] Jul, [facility] [address] [facility] [place] [id number] [address] [place] [address] Jul, [facility] [address] [facility] [place] [id number] [address] [place] [address] Jul, [facility] [address] [facility] [place] [id number] [address] [place] [address] Jul, [facility] [address] [facility] [place] [id number] [address] [place] [address] Jul, [facility] [address] [id number] [address] [place] [address] Jun, [facility] [address] [id number] [address] [place] [address], [place] [address] Jun, [facility] [address] [id number] [address] [place] [address], [place] [address] Jun, [facility] [address] [id number] [address] [place] [address], [place] [address] Jun, [facility] [address] [id number] [address] [place] [address], [place] [address] May, [facility] [address] [id number] [address] [place] [address], [place] [address] May, [facility] [address] [id number] [address] [place] [address], [place] [address] Feb, [facility] [address] [id number] [address] [place] [address], [place] [address] Feb, [facility] [address] [id number] [address] [place] [address], [place] [address] Feb, [facility] [address] [id number] [address] [place] [address], [place] [address] Feb, [facility] [address] [id number] [address] [place] [address], [place] [address] Jan, [facility] [address] [id number] [address] [place] [address], [place] [address] Jan, [facility] [address] [id number] [address] [place] [address], [place] [address] Jan, [facility] [address] [id number] [address] [place] [address], [place] [address] Jan, [facility] [address] [id number] [address] [place] [address], [place] [address] December, [facility] [address] [id number] [address] [place] [address], [place] [address] December, [facility] [address] [id number] [address] [place] [address], [place] [address] December, [facility] [address] [id number] [facility] [place] [address] December, [facility] [address] [id number] [address] [place] [address], [place] [address] December, [facility] [address] [id number] [address] [place] [address], [place] [address] December, [facility] [address] [id number] [address] [place] [address], [place] [address] December, [facility] [address] [id number] [address] [place] [address], [place] [address] December, [facility] [address] [id number] [address] [place] [address], [place] [address] December, [facility] [address] [id number] [address] [place] [address], [place] [address] December, [facility] [address] [id number] [address] [place] [address], [place] [address] December, [facility] [address] [id number] [address] [place] [address], [place] [address] December, [facility] [address] [id number] [address] [place] [address], [place] [address] December, [facility] [address] [id number] [address] [place] [address], [place] [address] December, [facility] [address] [id number] [address] [place] [address], [place] [address] December, [facility] [address] [id number] [address] [place] [address], [place] [address] December, [facility] [address] [id number] [address] [place] [address], [place] [address] December, [facility] [address] [id number] [address] [place] [address], [place] [address] Nov, [facility] [address] [id number] [facility] [place] [address] Nov, [facility] [address] [id number] [address] [place] [address], [place] [address] Nov, [facility] [address] [id number] [address] [place] [address], [place] [address] Nov, [facility] [address] [id number] [address] [place] [address], [place] [address] Nov, [facility] [address] [id number] [address] [place] [address], [place] [address] Nov, [facility] [address] [id number] [address] [place] [address], [place] [address] Nov, [facility] [address] [id number] [address] [place] [address], [place] [address] Nov, [facility] [address] [id number] [address] [place] [address], [place] [address] Nov, [facility] [address] [id number] [address] [place] [address], [place] [address] Nov, [facility] [address] [id number] [address] [place] [address], [place] [address] Nov, [facility] [address] [id number] [address] [place] [address], [place] [address] Nov, [facility] [address] [id number] [address] [place] [address], [place] [address] Nov, [facility] [address] [id number] [address] [place] [address], [place] [address] Nov, [facility] [address] [id number] [address] [place] [address], [place] [address] Nov, [facility] [address] [id number] [address] [place] [address], [place] [address] Nov, [facility] [address] [id number] [address] [place] [address], [place] [address] Oct, [facility] [address] [id number] [facility] [place] [address] Oct, [facility] [address] [id number] [facility] [place] [address] Oct, [facility] [address] [id number] [facility] [place] [address] Oct, [facility] [address] [id number] [address] [place] [address], [place] [address] Oct, [facility] [address] [id number] [address] [place] [address], [place] [address] Oct, [facility] [address] [id number] [address] [place] [address], [place] [address] Oct, [facility] [address] [id number] [address] [place] [address], [place] [address] Oct, [facility] [address] [id number] [address] [place] [address], [place] [address] Sep, [facility] [address] [id number] [address] [place] [address], [place] [address] Sep, [facility] [address] [id number] [address] [place] [address], [place] [address] Sep, [facility] [address] [id number] [address] [place] [address], [place] [address] Sep, [facility] [address] [id number] [address] [place] [address], [place] [address] Sep, [facility] [address] [id number] [address] [place] [address], [place] [address] Sep, [facility] [address] [id number] [address] [place] [address], [place] [address] Sep, [facility] [address] [id number] [address] [place] [address], [place] [address] Sep, [facility] [address] [id number] [address] [place] [address], [place] [address] Sep, [facility] [address] [id number] [address] [place] [address], [place] [address] Sep, [facility] [address] [id number] [address] [place] [address], [place] [address] Aug, [facility] [address] [id number] [address] [place] [address], [place] [address] Aug, [facility] [address] [id number] [address] [place] [address], [place] [address] Jul, [facility] [address] [id number] [address] [place] [address], [place] [address] Jul, [facility] [address] [id number] [address] [place] [address], [place] [address] Jul, [facility] [address] [id number] [address] [place] [address], [place] [address] Jul, [facility] [address] [id number] [address] [place] [address], [place] [address] Jul, [facility] [address] [id number] [address] [place] [address], [place] [address] Jul, [facility] [address] [id number] [address] [place] [address], [place] [address] Jun, [facility] [address] [id number] [address] [place] [address] Jun, [facility] [address] [id number] [address] [place] [address], [place] [address] Jun, [facility] [address] [id number] [address] [place] [address], [place] [address] May, [facility] [address] [id number] [address] [place] [address], [place] [address] December, [facility] [address] [id number] [address] [place] [address] December, [facility] [address] [id number] [address] [place] [address] Jan, [facility] [address] [id number] [address] [place] [address] Jan, [facility] [address] [id number] [address] [place] [address] Jan, [facility] [address] [id number] [address] [place] [address] Jan, [facility] [address] [id number] [address] [place] [address] December, [facility] [address] [id number] [place] [id number] December, [facility] [address] [id number] [address] [place] [address] December, [facility] [address] [id number] [address] [place] [address] December, [facility] [address] [facility] [place] [id number] [address] [place] [address] December, [facility] [address] [id number] [address] [place] [address] Oct, [facility] [address] [id number] [address] [place] [address] Jul, [facility] [facility] [address] [id number] [address] [place] [id number] Jul, [facility] [address] [id number] [address] [place] [id number] Jun, IMMUNIZATIONS No Known Immunizations SOCIAL HISTORY Never Assessed REASON FOR VISIT test (walk-in) , Pt has not yet missed a period, states she had posit lisa test at home. [facility] C[facility] VITAL SIGNS MEDICATIONS Unknown Medications RESULTS No Results PROCEDURES Procedure Date Ordered Result Body Site URINE TEST March 12, 2017 INSTRUCTIONS MEDICATIONS ADMINISTERED No Known Medications [...]
--- OUTSIDE RECORDS SUMMARY | 2019-11-24 00:53 | XMS REPORT ---
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 Name Role Phone KETURAH ANGELIA Unavailable PROBLEMS Type Condition ICD9-CM Code CBC56-IP Code Onset Dates Condition S tatus SNOMED Code Problem Irregular menstrual cycle N92.6 Acti ve 74500524 Problem Elevated blood pressure reading without diagnosi s of hypertension 796.2 Active 490401802 Problem Chronic gingivitis, plaque induced K05.10 Active 94378832 Problem Tobacco abuse Z72.0 Active 950997 05 Problem Constipation, unspecified constipation type K59.00 Active 60617446 Problem Lower abdominal pain R10.30 Active 86049300 Problem Anxiety F41.9 Active 67597527 Problem Fatigue, unspecified type R53.83 Acti ve [id number] ALLERGIES No Information ENCOUNTERS Encounter Location Date Diagnosis [facility] [address] [id number] [place] [id number] Oct, [facility] [address] [id number] [address] [place] [address] [id number] Oct, Dental examination Z01.20 [facility] [address] [id number] [address] [place] [address] Oct, Dental examination Z01.20 an d Chronic gingivitis, plaque induced K05.10 [facility] [address] [id number] [address] [place] [address] Oct, Dental examination Z01.20 [facility] [address] [id number] [place] [id number] Jun, [facility] [address] [id number] [place] [id number] May, [facility] [address] [id number] [place] [id number] May, [facility] [place] [address] [id number] [place] [id number] Apr, [facility] [place] [address] [id number] [place] [id number] Apr, [facility] [place] [address] [id number] [place] [id number] Feb, Encounter for test, result unk nown Z32.00 [facility] [place] [address] [id number] [place] [id number] Feb, [facility] [place] [address] [id number] [place] [id number] Feb, [facility] [place] [address] [id number] [place] [id number] Feb, Encounter for test, result unk nown Z32.00 [facility] [place] [address] [id number] [place] [id number] Jan, [facility] [place] [address] [id number] [place] [id number] Jan, [facility] [place] [address] [id number] [place] [id number] Jan, [facility] [place] [address] [id number] [place] [id number] December, [facility] [place] [address] [id number] [place] [id number] December, [facility] [place] [address] [id number] [place] [id number] Nov, [facility] [place] [address] [id number] [place] [id number] Nov, [facility] [place] [address] [id number] [place] [id number] Nov, [facility] [place] [address] [id number] [place] [id number] Oct, [facility] [place] [address] [id number] [place] [id number] Oct, [facility] [place] [address] [id number] [place] [id number] Oct, [facility] [place] [address] [id number] [place] [id number] Oct, [facility] [place] [address] [id number] [place] [id number] Sep, [facility] [place] [address] [id number] [place] [id number] Sep, [facility] [place] [address] [id number] [place] [id number] Sep, [facility] [place] [address] [id number] [place] [id number] Sep, [facility] [place] [address] [id number] [place] [id number] Sep, [facility] [place] [address] [id number] [place] [id number] Aug, [facility] [place] [address] [id number] [place] [id number] Jul, [facility] [place] [address] [id number] [place] [id number] Jul, [facility] [place] [address] [id number] [place] [id number] Jun, [facility] [place] [address] [id number] [place] [id number] Jun, [facility] [place] [address] [id number] [place] [id number] Jun, [facility] [place] [address] [id number] [place] [id number] Jun, [facility] [place] [address] [id number] [place] [id number] Jun, [facility] [place] [address] [id number] [place] [id number] Jun, [facility] [place] [address] [id number] [place] [id number] May, [facility] [place] [address] [id number] [place] [id number] May, [facility] [place] [address] [id number] [place] [id number] May, [facility] [address] [id number] [address] [place] [address] Apr, Bronchitis J40 [facility] [address] [id number] [place] [id number] Mar, [facility] [address] [id number] [place] [id number] Feb, [facility] [address] [id number] [place] [id number] Feb, [facility] [address] [id number] [place] [id number] Feb, Sore throat J02.9 and Ear pain, right H9 2.01 [facility] [address] [facility] [id number] [place] [id number] Jan, [facility] [address] [id number] [place] [id number] Jan, Viral syndrome B34.9 ; Other seasonal al lergic rhinitis J30.2 and Post-nasal drip R09.82 [facility] [address] [facility] [id number] [place] [id number] Jan, [facility] [address] [facility] [id number] [place] [id number] Nov, [facility] [address] [id number] [place] [id number] Oct, test positive Z32.01 [facility] [address] [id number] [address] [place] [address] Oct, [facility] [id number] [place] [address] Oct, [facility] [address] [id number] [address] [place] [address] Sep, Kidney stones N20.0 [facility] [address] [id number] [address] [place] [address] Sep, [facility] [address] [facility] [id number] [address] [place] [address] 11 Sep, 2015 Pelvic pain R10.2 ; Left low er quadrant pain R10.32 ; Vaginal discharge N89.8 ; Routine screening for STI (sexually transmitted infection) Z11.3 ; Unprotected sexual intercourse Z72.51 ; Kidney stone N20.0 ; History of dyspareunia in female Z87.42 and Screening for malignant neoplasm of cervix Z12.4 [place] [id number] [place] [address] 12 Jun, 2015 Constipation, unspecified co nstipation type K59.00 ; Lower abdominal pain R10.30 ; Irregular menstrual cycle N92.6 ; Anxiety F41.9 ; Fatigue, unspecified type R53.83 and Tobacco abuse Z72.0 [facility] [address] [id number] [place] [id number] Jun, [facility] [address] [id number] [place] [id number] Jun, Nausea R11.0 [facility] [place] [address] [id number] [place] [id number] May, Alopecia L65.9 [facility] [place] [address] [id number] [place] [id number] May, [facility] [place] [address] [id number] [place] [id number] Apr, [facility] [place] [address] [id number] [place] [id number] Mar, [facility] [place] [address] [id number] [place] [id number] Mar, [facility] [address] [id number] [place] [id number] Mar, [facility] [address] [id number] [address] [place] [address] Mar, test negative V72. 41 [facility] [place] [address] [id number] [place] [id number] Mar, [facility] [place] [address] [id number] [place] [id number] Mar, [facility] [place] [address] [id number] [place] [id number] Feb, [facility] [place] [address] [id number] [place] [id number] Feb, [facility] [place] [address] [id number] [place] [id number] Feb, [facility] [place] [address] [id number] [place] [id number] Feb, [facility] [place] [address] [id number] [place] [id number] Feb, [facility] [place] [address] [id number] [place] [id number] Feb, [facility] [place] [address] [id number] [place] [id number] Feb, [facility] [place] [address] [id number] [place] [id number] Feb, [facility] [place] [address] [id number] [place] [id number] Feb, [facility] [place] [address] [id number] [place] [id number] Feb, [facility] [place] [address] [id number] [place] [id number] Feb, [facility] [place] [address] [id number] [place] [id number] Feb, [facility] [place] [address] [id number] [place] [id number] Jan, [facility] [place] [address] [id number] [place] [id number] Jan, [facility] [place] [address] [id number] [place] [id number] Jan, [facility] [address] [facility] [address] [id number] [place] [id number] Jan, Dental examination V72.2 [facility] [place] [address] [id number] [place] [id number] Jan, [facility] [place] [address] [id number] [place] [id number] Jan, [facility] [place] [address] [id number] [place] [id number] Jan, [facility] [place] [address] [id number] [place] [id number] Jan, [facility] [place] [address] [id number] [place] [id number] Jan, [facility] [place] [address] [id number] [place] [id number] Jan, [facility] [place] [address] [id number] [place] [id number] Jan, [facility] [place] [address] [id number] [place] [id number] Jan, [facility] [place] [address] [id number] [place] [id number] Jan, [facility] [place] [address] [id number] [place] [id number] Jan, [facility] [place] [address] [id number] [place] [id number] Jan, [facility] [place] [address] [id number] [place] [id number] Jan, [facility] [place] [address] [id number] [place] [id number] Jan, [facility] [place] [address] [id number] [place] [id number] Jan, [facility] [place] [address] [id number] [place] [id number] Jan, [facility] [place] [address] [id number] [place] [id number] Jan, [facility] [place] [address] [id number] [place] [id number] Jan, [facility] [place] [address] [id number] [place] [id number] Jan, [facility] [place] [address] [id number] [place] [id number] Jan, [facility] [place] [address] [id number] [place] [id number] Jan, [facility] [place] [address] [id number] [place] [id number] Jan, [facility] [place] [address] [id number] [place] [id number] Jan, [facility] [place] [address] [id number] [place] [id number] Jan, [facility] [place] [address] [id number] [place] [id number] Jan, [facility] [place] [address] [id number] [place] [id number] December, [facility] [place] [address] [id number] [place] [id number] December, [facility] [place] [address] [id number] [place] [id number] December, [facility] [place] [address] [id number] [place] [id number] December, [facility] [place] [address] [id number] [place] [id number] December, [facility] [place] [address] [id number] [place] [id number] December, [facility] [place] [address] [id number] [place] [id number] December, [facility] [place] [address] [id number] [place] [id number] December, [facility] [place] [address] [id number] [place] [id number] December, [facility] [place] [address] [id number] [place] [id number] December, [facility] [place] [address] [id number] [place] [id number] December, [facility] [place] [address] [id number] [place] [id number] December, [facility] [place] [address] [id number] [place] [id number] December, [facility] [place] [address] [id number] [place] [id number] December, [facility] [place] [address] [id number] [place] [id number] Nov, [facility] [place] [address] [id number] [place] [id number] Nov, [facility] [place] [address] [id number] [place] [id number] Nov, [facility] [place] [address] [id number] [place] [id number] Nov, [facility] [address] [id number] [address] [place] [address] Nov, [facility] [address] [facility] [id number] [address] [place] [address] Nov, [facility] [address] [id number] [address] [place] [address] Sep, [facility] [address] [id number] [address] [place] [address] Sep, [facility] [address] [facility] [id number] [address] [place] [address] Jul, [facility] [address] [facility] [id number] [address] [place] [address] Jul, [facility] [address] [facility] [id number] [address] [place] [address] Jul, [facility] [address] [id number] [address] [place] [address] Jul, [facility] [address] [id number] [address] [place] [address] Jul, [facility] [address] [facility] [id number] [address] [place] [address] Jul, [facility] [address] [id number] [address] [place] [address] Jun, [facility] [address] [id number] [facility] [place] [address] Jun, [facility] [address] [id number] [address] [place] [address], [place] [address] Jun, [facility] [address] [id number] [address] [place] [address], [place] [address] Jun, [facility] [address] [id number] [address] [place] [address], [place] [address] May, [facility] [address] [id number] [address] [place] [address], [place] [address] May, [facility] [address] [id number] [address] [place] [address], [place] [address] Feb, [facility] [address] [id number] [address] [place] [address], [place] [address] Feb, [facility] [address] [id number] [address] [place] [address], [place] [address] Feb, [facility] [address] [id number] [address] [place] [address], [place] [address] Feb, [facility] [address] [id number] [address] [place] [address], [place] [address] Jan, [facility] [address] [id number] [address] [place] [address], [place] [address] Jan, [facility] [address] [id number] [address] [place] [address], [place] [address] Jan, [facility] [address] [id number] [address] [place] [address], [place] [address] Jan, [facility] [address] [id number] [address] [place] [address], [place] [address] December, [facility] [address] [id number] [address] [place] [address], [place] [address] December, [facility] [address] [id number] [address] [place] [address], [place] [address] December, [facility] [address] [id number] [address] [place] [address], [place] [address] December, [facility] [address] [id number] [address] [place] [address], [place] [address] December, [facility] [address] [id number] [address] [place] [address], [place] [address] December, [facility] [address] [id number] [address] [place] [address], [place] [address] December, [facility] [address] [id number] [address] [place] [address], [place] [address] December, [facility] [address] [id number] [address] [place] [address], [place] [address] December, [facility] [address] [id number] [address] [place] [address], [place] [address] December, [facility] [address] [id number] [address] [place] [address], [place] [address] December, [facility] [address] [id number] [address] [place] [address], [place] [address] December, [facility] [address] [id number] [address] [place] [address], [place] [address] December, [facility] [address] [id number] [address] [place] [address], [place] [address] December, [facility] [address] [id number] [address] [place] [address], [place] [address] December, [facility] [address] [id number] [address] [place] [address], [place] [address] December, [facility] [address] [id number] [address] [place] [address], [place] [address] December, [facility] [address] [id number] [address] [place] [address], [place] [address] Nov, [facility] [address] [id number] [facility] [place] [address] Nov, [facility] [address] [id number] [facility] [place] [address] Nov, [facility] [address] [id number] [address] [place] [address], [place] [address] Nov, [facility] [address] [id number] [address] [place] [address], [place] [address] Nov, [facility] [address] [id number] [address] [place] [address], [place] [address] Nov, [facility] [address] [id number] [address] [place] [address], [place] [address] Nov, [facility] [address] [id number] [address] [place] [address], [place] [address] Nov, [facility] [address] [id number] [address] [place] [address], [place] [address] Nov, [facility] [address] [id number] [address] [place] [address], [place] [address] Nov, [facility] [address] [id number] [address] [place] [address], [place] [address] Nov, [facility] [address] [id number] [address] [place] [address], [place] [address] Nov, [facility] [address] [id number] [address] [place] [address], [place] [address] Nov, [facility] [address] [id number] [address] [place] [address], [place] [address] Nov, [facility] [address] [id number] [address] [place] [address], [place] [address] Nov, [facility] [address] [id number] [address] [place] [address], [place] [address] Nov, [facility] [address] [id number] [address] [place] [address], [place] [address] Oct, [facility] [address] [id number] [address] [place] [address], [place] [address] Oct, [facility] [address] [id number] [address] [place] [address], [place] [address] Oct, [facility] [address] [id number] [address] [place] [address], [place] [address] Oct, [facility] [address] [id number] [address] [place] [address], [place] [address] Oct, [facility] [address] [id number] [address] [place] [address], [place] [address] Oct, [facility] [address] [id number] [address] [place] [address], [place] [address] Oct, [facility] [address] [id number] [address] [place] [address], [place] [address] Oct, [facility] [address] [id number] [address] [place] [address], [place] [address] Sep, [facility] [address] [id number] [address] [place] [address], [place] [address] Sep, [facility] [address] [id number] [address] [place] [address], [place] [address] Sep, [facility] [address] [id number] [address] [place] [address], [place] [address] Sep, [facility] [address] [id number] [address] [place] [address], [place] [address] Sep, [facility] [address] [id number] [address] [place] [address], [place] [address] Sep, [facility] [address] [id number] [address] [place] [address], [place] [address] Sep, [facility] [address] [id number] [address] [place] [address], [place] [address] Sep, [facility] [address] [id number] [address] [place] [address], [place] [address] Sep, [facility] [address] [id number] [address] [place] [address], [place] [address] Sep, [facility] [address] [id number] [address] [place] [address], [place] [address] Aug, [facility] [address] [id number] [address] [place] [address], [place] [address] Aug, [facility] [address] [id number] [address] [place] [address], [place] [address] Jul, [facility] [address] [id number] [address] [place] [address], [place] [address] Jul, [facility] [address] [id number] [address] [place] [address], [place] [address] Jul, [facility] [address] [id number] [address] [place] [address], [place] [address] Jul, [facility] [address] [id number] [address] [place] [address], [place] [address] Jul, [facility] [address] [id number] [address] [place] [address], [place] [address] Jul, [facility] [address] [id number] [address] [place] [address], [place] [address] Jun, [facility] [address] [id number] [address] [place] [id number] Jun, [facility] [address] [id number] [address] [place] [address], [place] [address] Jun, [facility] [address] [id number] [address] [place] [address], [place] [address] May, [facility] [address] [id number] [address] [place] [address], [place] [address] December, [facility] [address] [id number] [address] [place] [id number] December, [facility] [address] [id number] [address] [place] [id number] Jan, [facility] [address] [id number] [address] [place] [id number] Jan, [facility] [address] [id number] [address] [place] [id number] Jan, [facility] [address] [id number] [address] [place] [id number] Jan, [facility] [address] [id number] [address] [place] [address] December, [place] [address] [id number] [facility] [id number] December, [facility] [address] [facility] [place] [id number] [address] [place] [id number] December, [facility] [address] [id number] [address] [place] [id number] December, [facility] [address] [id number] [address] [place] [id number] December, [facility] [address] [id number] [address] [place] [id number] Oct, [facility] [address] [place] [facility]NOTE 2[facility] [id number] [address] [place] [id number] Jul, [facility] [address] [id number] [address] [place] [id number] Jul, [facility] [address] [id number] [address] [place] [id number] Jun, IMMUNIZATIONS No Known Immunizations SOCIAL HISTORY [...]
--- OUTSIDE RECORDS SUMMARY | 2019-11-24 00:53 | XMS REPORT ---
Author Author Vilma REYES Y Organization [facility] Address [address] [place] [address] Care Team Providers Care [employer] Workers Name Role Phone AYLA EUBANK[place] Unavailable PROBLEMS Type Condition ICD9-CM Code QJC94-MP Code Onset Dates Condition S tatus SNOMED Code Problem Irregular menstrual cycle N92.6 Acti ve 90954616 Problem Elevated blood pressure reading without diagnosi s of hypertension 796.2 Active 840480028 Problem Chronic gingivitis, plaque induced K05.10 Active 83765889 Problem Tobacco abuse Z72.0 Active 465132 05 Problem Constipation, unspecified constipation type K59.00 Active 85281190 Problem Lower abdominal pain R10.30 Active 65783789 Problem Anxiety F41.9 Active 54406971 Problem Fatigue, unspecified type R53.83 Acti ve [id number] ALLERGIES No Information ENCOUNTERS Encounter Location Date Diagnosis [facility] [address] [id number] [place] [id number] Oct, [facility] [address] [id number] [address] [place] [address] [id number] Oct, Dental examination Z01.20 [facility] [address] [id number] [address] [place] [address] Oct, Dental examination Z01.20 an d Chronic gingivitis, plaque induced K05.10 [facility] [address] [id number] [address] [place] [address] Oct, Dental examination Z01.20 [facility] [address] [id number] [place] [id number] Jun, [facility] [address] [id number] [place] [id number] May, [facility] [address] [id number] [place] [id number] May, [facility] [place] [address] [id number] [place] [id number] Apr, [facility] [place] [address] [id number] [place] [id number] Apr, [facility] [place] [address] [id number] [place] [id number] Feb, Encounter for test, result unk nown Z32.00 [facility] [place] [address] [id number] [place] [id number] Feb, [facility] [place] [address] [id number] [place] [id number] Feb, [facility] [place] [address] [id number] [place] [id number] Feb, Encounter for test, result unk nown Z32.00 [facility] [place] [address] [id number] [place] [id number] Jan, [facility] [place] [address] [id number] [place] [id number] Jan, [facility] [place] [address] [id number] [place] [id number] Jan, [facility] [place] [address] [id number] [place] [id number] December, [facility] [place] [address] [id number] [place] [id number] December, [facility] [place] [address] [id number] [place] [id number] Nov, [facility] [place] [address] [id number] [place] [id number] Nov, [facility] [place] [address] [id number] [place] [id number] Nov, [facility] [place] [address] [id number] [place] [id number] Oct, [facility] [place] [address] [id number] [place] [id number] Oct, [facility] [place] [address] [id number] [place] [id number] Oct, [facility] [place] [address] [id number] [place] [id number] Oct, [facility] [place] [address] [id number] [place] [id number] Sep, [facility] [place] [address] [id number] [place] [id number] Sep, [facility] [place] [address] [id number] [place] [id number] Sep, [facility] [place] [address] [id number] [place] [id number] Sep, [facility] [place] [address] [id number] [place] [id number] Sep, [facility] [place] [address] [id number] [place] [id number] Aug, [facility] [place] [address] [id number] [place] [id number] Jul, [facility] [place] [address] [id number] [place] [id number] Jul, [facility] [place] [address] [id number] [place] [id number] Jun, [facility] [place] [address] [id number] [place] [id number] Jun, [facility] [place] [address] [id number] [place] [id number] Jun, [facility] [place] [address] [id number] [place] [id number] Jun, [facility] [place] [address] [id number] [place] [id number] Jun, [facility] [place] [address] [id number] [place] [id number] Jun, [facility] [place] [address] [id number] [place] [id number] May, [facility] [place] [address] [id number] [place] [id number] May, [facility] [place] [address] [id number] [place] [id number] May, [facility] [address] [address] Apr, Bronchitis J40 [facility] [place] [address] [id number] [place] [id number] Mar, [facility] [place] [address] [id number] [place] [id number] Feb, [facility] [place] [address] [id number] [place] [id number] Feb, [facility] [place] [address] [id number] [place] [id number] Feb, Sore throat J02.9 and Ear pain, right H9 2.01 [facility] [place] [address] [id number] [place] [id number] Jan, [facility] [place] [address] [id number] [place] [id number] Jan, Viral syndrome B34.9 ; Other seasonal al lergic rhinitis J30.2 and Post-nasal drip R09.82 [facility] [place] [address] [id number] [place] [id number] Jan, [facility] [place] [address] [id number] [place] [id number] Nov, [facility] [place] [address] [facility] [id number] [place] [id number] Oct, test positive Z32.01 [facility] [address] [place] [address] Oct, [facility] [address] [id number] [address] [place] [address] Oct, [facility] [address] [id number] [address] [place] [address] Sep, Kidney stones N20.0 [facility] [address] [id number] [address] [place] [address] Sep, [facility] [address] [id number] [address] [place] [address] 11 Sep, 2015 Pelvic pain R10.2 ; Left low er quadrant pain R10.32 ; Vaginal discharge N89.8 ; Routine screening for STI (sexually transmitted infection) Z11.3 ; Unprotected sexual intercourse Z72.51 ; Kidney stone N20.0 ; History of dyspareunia in female Z87.42 and Screening for malignant neoplasm of cervix Z12.4 [facility] [address] [id number] [address] [place] [address] Jun, Constipation, unspecified co nstipation type K59.00 ; Lower abdominal pain R10.30 ; Irregular menstrual cycle N92.6 ; Anxiety F41.9 ; Fatigue, unspecified type R53.83 and Tobacco abuse Z72.0 [facility] [place] [address] [id number] [place] [id number] Jun, [facility] [place] [address] [id number] [place] [id number] Jun, Nausea R11.0 [facility] [place] [address] [id number] [place] [id number] May, Alopecia L65.9 [facility] [place] [address] [id number] [place] [id number] May, [facility] [place] [address] [id number] [place] [id number] Apr, [facility] [place] [address] [id number] [place] [id number] Mar, [facility] [place] [address] [id number] [place] [id number] Mar, [facility] [place] [address] [id number] [place] [id number] Mar, [facility] [address] [id number] [address] [place] [address] Mar, test negative V72. 41 [facility] [place] [address] [id number] [place] [id number] Mar, [facility] [place] [address] [id number] [place] [id number] Mar, [facility] [place] [address] [id number] [place] [id number] Feb, [facility] [place] [address] [id number] [place] [id number] Feb, [facility] [place] [address] [id number] [place] [id number] Feb, [facility] [place] [address] [id number] [place] [id number] Feb, [facility] [place] [address] [id number] [place] [id number] Feb, [facility] [place] [address] [id number] [place] [id number] Feb, [facility] [place] [address] [id number] [place] [id number] Feb, [facility] [place] [address] [id number] [place] [id number] Feb, [facility] [place] [address] [id number] [place] [id number] Feb, [facility] [place] [address] [id number] [place] [id number] Feb, [facility] [place] [address] [id number] [place] [id number] Feb, [facility] [place] [address] [id number] [place] [id number] Feb, [facility] [place] [address] [id number] [place] [id number] Jan, [facility] [place] [address] [id number] [place] [id number] Jan, [facility] [place] [address] [id number] [place] [id number] Jan, [facility] [address] [facility] [address] [facility] [address] [id number] [place] [id number] Jan, Dental examination V72.2 [facility] [place] [address] [id number] [place] [id number] Jan, [facility] [place] [address] [id number] [place] [id number] Jan, [facility] [place] [address] [id number] [place] [id number] Jan, [facility] [place] [address] [id number] [place] [id number] Jan, [facility] [place] [address] [id number] [place] [id number] Jan, [facility] [place] [address] [id number] [place] [id number] Jan, [facility] [place] [address] [id number] [place] [id number] Jan, [facility] [place] [address] [id number] [place] [id number] Jan, [facility] [place] [address] [id number] [place] [id number] Jan, [facility] [place] [address] [id number] [place] [id number] Jan, [facility] [place] [address] [id number] [place] [id number] Jan, [facility] [place] [address] [id number] [place] [id number] Jan, [facility] [place] [address] [id number] [place] [id number] Jan, [facility] [place] [address] [id number] [place] [id number] Jan, [facility] [place] [address] [id number] [place] [id number] Jan, [facility] [place] [address] [id number] [place] [id number] Jan, [facility] [place] [address] [id number] [place] [id number] Jan, [facility] [place] [address] [id number] [place] [id number] Jan, [facility] [place] [address] [id number] [place] [id number] Jan, [facility] [place] [address] [id number] [place] [id number] Jan, [facility] [place] [address] [id number] [place] [id number] Jan, [facility] [place] [address] [id number] [place] [id number] Jan, [facility] [place] [address] [id number] [place] [id number] Jan, [facility] [place] [address] [id number] [place] [id number] Jan, [facility] [place] [address] [id number] [place] [id number] December, [facility] [place] [address] [id number] [place] [id number] December, [facility] [place] [address] [id number] [place] [id number] December, [facility] [place] [address] [id number] [place] [id number] December, [facility] [place] [address] [id number] [place] [id number] December, [facility] [place] [address] [id number] [place] [id number] December, [facility] [place] [address] [id number] [place] [id number] December, [facility] [place] [address] [id number] [place] [id number] December, [facility] [place] [address] [id number] [place] [id number] December, [facility] [place] [address] [id number] [place] [id number] December, [facility] [place] [address] [id number] [place] [id number] December, [facility] [place] [address] [id number] [place] [id number] December, [facility] [place] [address] [id number] [place] [id number] December, [facility] [place] [address] [id number] [place] [id number] December, [facility] [place] [address] [id number] [place] [id number] Nov, [facility] [place] [address] [id number] [place] [id number] Nov, [facility] [place] [address] [id number] [place] [id number] Nov, [facility] [place] [address] [id number] [place] [id number] Nov, [facility] [address] [id number] [address] [place] [address] Nov, [facility] [address] [facility] [id number] [address] [place] [address] Nov, [facility] [address] [facility] [id number] [address] [place] [address] Sep, [facility] [address] [facility] [id number] [address] [place] [address] Sep, [facility] [address] [facility] [id number] [address] [place] [address] Jul, [facility] [address] [facility] [id number] [address] [place] [address] Jul, [facility] [address] [facility] [id number] [address] [place] [address] Jul, [facility] [address] [facility] [id number] [address] [place] [address] Jul, [facility] [address] [facility] [id number] [address] [place] [address] Jul, [facility] [address] [facility] [id number] [address] [place] [address] Jul, [facility] [address] [id number] [address] [place] [address] Jun, [facility] [address] [id number] [address] [place] [address], [place] [address] Jun, [facility] [address] [id number] [address] [place] [address], [place] [address] Jun, [facility] [address] [id number] [address] [place] [address], [place] [address] Jun, [facility] [address] [id number] [address] [place] [address], [place] [address] May, [facility] [address] [id number] [address] [place] [address], [place] [address] May, [facility] [address] [id number] [address] [place] [address], [place] [address] Feb, [facility] [address] [id number] [address] [place] [address], [place] [address] Feb, [facility] [address] [id number] [address] [place] [address], [place] [address] Feb, [facility] [address] [id number] [address] [place] [address], [place] [address] Feb, [facility] [address] [id number] [address] [place] [address], [place] [address] Jan, [facility] [address] [id number] [address] [place] [address], [place] [address] Jan, [facility] [address] [id number] [address] [place] [address], [place] [address] Jan, [facility] [address] [id number] [address] [place] [address], [place] [address] Jan, [facility] [address] [id number] [address] [place] [address], [place] [address] December, [facility] [address] [id number] [address] [place] [address], [place] [address] December, [facility] [address] [id number] [address] [place] [address], [place] [address] December, [facility] [address] [id number] [facility] [place] [address] December, [facility] [address] [id number] [address] [place] [address], [place] [address] December, [facility] [address] [id number] [address] [place] [address], [place] [address] December, [facility] [address] [id number] [address] [place] [address], [place] [address] December, [facility] [address] [id number] [address] [place] [address], [place] [address] December, [facility] [address] [id number] [address] [place] [address], [place] [address] December, [facility] [address] [id number] [address] [place] [address], [place] [address] December, [facility] [address] [id number] [address] [place] [address], [place] [address] December, [facility] [address] [id number] [address] [place] [address], [place] [address] December, [facility] [address] [id number] [address] [place] [address], [place] [address] December, [facility] [address] [id number] [address] [place] [address], [place] [address] December, [facility] [address] [id number] [address] [place] [address], [place] [address] December, [facility] [address] [id number] [address] [place] [address], [place] [address] December, [facility] [address] [id number] [address] [place] [address], [place] [address] December, [facility] [address] [id number] [address] [place] [address], [place] [address] Nov, [facility] [address] [id number] [facility] [place] [address] Nov, [facility] [address] [id number] [address] [place] [address], [place] [address] Nov, [facility] [address] [id number] [address] [place] [address], [place] [address] Nov, [facility] [address] [id number] [address] [place] [address], [place] [address] Nov, [facility] [address] [id number] [address] [place] [address], [place] [address] Nov, [facility] [address] [id number] [address] [place] [address], [place] [address] Nov, [facility] [address] [id number] [address] [place] [address], [place] [address] Nov, [facility] [address] [id number] [address] [place] [address], [place] [address] Nov, [facility] [address] [id number] [address] [place] [address], [place] [address] Nov, [facility] [address] [id number] [address] [place] [address], [place] [address] Nov, [facility] [address] [id number] [address] [place] [address], [place] [address] Nov, [facility] [address] [id number] [address] [place] [address], [place] [address] Nov, [facility] [address] [id number] [address] [place] [address], [place] [address] Nov, [facility] [address] [id number] [address] [place] [address], [place] [address] Nov, [facility] [address] [id number] [address] [place] [address], [place] [address] Nov, [facility] [address] [id number] [address] [place] [address], [place] [address] Oct, [facility] [address] [id number] [facility] [place] [address] Oct, [facility] [address] [id number] [facility] [place] [address] Oct, [facility] [address] [id number] [facility] [place] [address] Oct, [facility] [address] [id number] [address] [place] [address], [place] [address] Oct, [facility] [address] [id number] [address] [place] [address], [place] [address] Oct, [facility] [address] [id number] [address] [place] [address], [place] [address] Oct, [facility] [address] [id number] [address] [place] [address], [place] [address] Oct, [facility] [address] [id number] [address] [place] [address], [place] [address] Sep, [facility] [address] [id number] [address] [place] [address], [place] [address] Sep, [facility] [address] [id number] [address] [place] [address], [place] [address] Sep, [facility] [address] [id number] [address] [place] [address], [place] [address] Sep, [facility] [address] [id number] [address] [place] [address], [place] [address] Sep, [facility] [address] [id number] [address] [place] [address], [place] [address] Sep, [facility] [address] [id number] [address] [place] [address], [place] [address] Sep, [facility] [address] [id number] [address] [place] [address], [place] [address] Sep, [facility] [address] [id number] [address] [place] [address], [place] [address] Sep, [facility] [address] [id number] [address] [place] [address], [place] [address] Sep, [facility] [address] [id number] [address] [place] [address], [place] [address] Aug, [facility] [address] [id number] [address] [place] [address], [place] [address] Aug, [facility] [address] [id number] [address] [place] [address], [place] [address] Jul, [facility] [address] [id number] [address] [place] [address], [place] [address] Jul, [facility] [address] [id number] [address] [place] [address], [place] [address] Jul, [facility] [address] [id number] [address] [place] [address], [place] [address] Jul, [facility] [address] [id number] [address] [place] [address], [place] [address] Jul, [facility] [address] [id number] [address] [place] [address], [place] [address] Jul, [facility] [address] [id number] [address] [place] [address], [place] [address] Jun, [facility] [address] [id number] [address] [place] [address] Jun, [facility] [address] [id number] [address] [place] [address], [place] [address] Jun, [facility] [address] [id number] [address] [place] [address], [place] [address] May, [facility] [address] [id number] [address] [place] [address], [place] [address] December, [facility] [address] [id number] [address] [place] [address] December, [facility] [address] [id number] [address] [place] [address] Jan, [facility] [address] [id number] [address] [place] [id number] Jan, [facility] [address] [id number] [address] [place] [address] Jan, [facility] [address] [id number] [address] [place] [address] Jan, [facility] [address] [id number] [address] [place] [address] December, [facility] [address] [id number] [place] [id number] December, [facility] [address] [facility] [id number] [address] [place] [address] December, [facility] [address] [id number] [address] [place] [address] December, [facility] [address] [facility] [id number] [address] [place] [id number] December, [facility] [address] [id number] [address] [place] [id number] Oct, [facility] [address] [facility] [id number] [address] [place] [address] Jul, [facility] [address] [id number] [address] [place] [id number] Jul, [facility] [address] [id number] [address] [place] [id number] Jun, IMMUNIZATIONS No Known Immunizations SOCIAL HISTORY [...]
--- OUTSIDE RECORDS SUMMARY | 2019-11-24 00:53 | XMS REPORT ---
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 Name Role Phone AYLA EUBANKSMACK[place]TON Unavailable PROBLEMS Type Condition ICD9-CM Code MCZ06-ES Code Onset Dates Condition S tatus SNOMED Code Problem Irregular menstrual cycle N92.6 Acti ve 69168951 Problem Elevated blood pressure reading without diagnosi s of hypertension 796.2 Active 433690789 Problem Chronic gingivitis, plaque induced K05.10 Active 02112063 Problem Tobacco abuse Z72.0 Active 208033 05 Problem Constipation, unspecified constipation type K59.00 Active 30015002 Problem Lower abdominal pain R10.30 Active 99199138 Problem Anxiety F41.9 Active 35632237 Problem Fatigue, unspecified type R53.83 Acti ve [id number] ALLERGIES No Information ENCOUNTERS Encounter Location Date Diagnosis [facility] [address] [id number] [place] [id number] Oct, [facility] [address] [id number] [address] [place] [address] [id number] Oct, Dental examination Z01.20 [facility] [address] [id number] [address] [place] [address] Oct, Dental examination Z01.20 an d Chronic gingivitis, plaque induced K05.10 [facility] [address] [id number] [address] [place] [address] Oct, Dental examination Z01.20 [facility] [address] [id number] [place] [id number] Jun, [facility] [address] [id number] [place] [id number] May, [facility] [address] [id number] [place] [id number] May, [facility] [place] [address] [id number] [place] [id number] Apr, [facility] [place] [address] [id number] [place] [id number] Apr, [facility] [place] [address] [id number] [place] [id number] Feb, Encounter for test, result unk nown Z32.00 [facility] [place] [address] [id number] [place] [id number] Feb, [facility] [place] [address] [id number] [place] [id number] Feb, [facility] [place] [address] [id number] [place] [id number] Feb, Encounter for test, result unk nown Z32.00 [facility] [place] [address] [id number] [place] [id number] Jan, [facility] [place] [address] [id number] [place] [id number] Jan, [facility] [place] [address] [id number] [place] [id number] Jan, [facility] [place] [address] [id number] [place] [id number] December, [facility] [place] [address] [id number] [place] [id number] December, [facility] [place] [address] [id number] [place] [id number] Nov, [facility] [place] [address] [id number] [place] [id number] Nov, [facility] [place] [address] [id number] [place] [id number] Nov, [facility] [place] [address] [id number] [place] [id number] Oct, [facility] [place] [address] [id number] [place] [id number] Oct, [facility] [place] [address] [id number] [place] [id number] Oct, [facility] [place] [address] [id number] [place] [id number] Oct, [facility] [place] [address] [id number] [place] [id number] Sep, [facility] [place] [address] [id number] [place] [id number] Sep, [facility] [place] [address] [id number] [place] [id number] Sep, [facility] [place] [address] [id number] [place] [id number] Sep, [facility] [place] [address] [id number] [place] [id number] Sep, [facility] [place] [address] [id number] [place] [id number] Aug, [facility] [place] [address] [id number] [place] [id number] Jul, [facility] [place] [address] [id number] [place] [id number] Jul, [facility] [place] [address] [id number] [place] [id number] Jun, [facility] [place] [address] [id number] [place] [id number] Jun, [facility] [place] [address] [id number] [place] [id number] Jun, [facility] [place] [address] [id number] [place] [id number] Jun, [facility] [place] [address] [id number] [place] [id number] Jun, [facility] [place] [address] [id number] [place] [id number] Jun, [facility] [place] [address] [id number] [place] [id number] May, [facility] [place] [address] [id number] [place] [id number] May, [facility] [place] [address] [id number] [place] [id number] May, [facility] [address] [address] Apr, Bronchitis J40 [facility] [place] [address] [id number] [place] [id number] Mar, [facility] [place] [address] [id number] [place] [id number] Feb, [facility] [place] [address] [id number] [place] [id number] Feb, [facility] [place] [address] [id number] [place] [id number] Feb, Sore throat J02.9 and Ear pain, right H9 2.01 [facility] [place] [address] [id number] [place] [id number] Jan, [facility] [place] [address] [id number] [place] [id number] Jan, Viral syndrome B34.9 ; Other seasonal al lergic rhinitis J30.2 and Post-nasal drip R09.82 [facility] [place] [address] [id number] [place] [id number] Jan, [facility] [place] [address] [id number] [place] [id number] Nov, [facility] [place] [address] [facility] [id number] [place] [id number] Oct, test positive Z32.01 [facility] [address] [place] [address] Oct, [facility] [address] [id number] [address] [place] [address] Oct, [facility] [address] [id number] [address] [place] [address] Sep, Kidney stones N20.0 [facility] [address] [id number] [address] [place] [address] Sep, [facility] [address] [id number] [address] [place] [address] 11 Sep, 2015 Pelvic pain R10.2 ; Left low er quadrant pain R10.32 ; Vaginal discharge N89.8 ; Routine screening for STI (sexually transmitted infection) Z11.3 ; Unprotected sexual intercourse Z72.51 ; Kidney stone N20.0 ; History of dyspareunia in female Z87.42 and Screening for malignant neoplasm of cervix Z12.4 [facility] [address] [id number] [address] [place] [address] Jun, Constipation, unspecified co nstipation type K59.00 ; Lower abdominal pain R10.30 ; Irregular menstrual cycle N92.6 ; Anxiety F41.9 ; Fatigue, unspecified type R53.83 and Tobacco abuse Z72.0 [facility] [place] [address] [id number] [place] [id number] Jun, [facility] [place] [address] [id number] [place] [id number] Jun, Nausea R11.0 [facility] [place] [address] [id number] [place] [id number] May, Alopecia L65.9 [facility] [place] [address] [id number] [place] [id number] May, [facility] [place] [address] [id number] [place] [id number] Apr, [facility] [place] [address] [id number] [place] [id number] Mar, [facility] [place] [address] [id number] [place] [id number] Mar, [facility] [place] [address] [id number] [place] [id number] Mar, [facility] [address] [id number] [address] [place] [address] Mar, test negative V72. 41 [facility] [place] [address] [id number] [place] [id number] Mar, [facility] [place] [address] [id number] [place] [id number] Mar, [facility] [place] [address] [id number] [place] [id number] Feb, [facility] [place] [address] [id number] [place] [id number] Feb, [facility] [place] [address] [id number] [place] [id number] Feb, [facility] [place] [address] [id number] [place] [id number] Feb, [facility] [place] [address] [id number] [place] [id number] Feb, [facility] [place] [address] [id number] [place] [id number] Feb, [facility] [place] [address] [id number] [place] [id number] Feb, [facility] [place] [address] [id number] [place] [id number] Feb, [facility] [place] [address] [id number] [place] [id number] Feb, [facility] [place] [address] [id number] [place] [id number] Feb, [facility] [place] [address] [id number] [place] [id number] Feb, [facility] [place] [address] [id number] [place] [id number] Feb, [facility] [place] [address] [id number] [place] [id number] Jan, [facility] [place] [address] [id number] [place] [id number] Jan, [facility] [place] [address] [id number] [place] [id number] Jan, [facility] [address] [facility] [address] [id number] [place] [id number] Jan, Dental examination V72.2 [facility] [place] [address] [id number] [place] [id number] Jan, [facility] [place] [address] [id number] [place] [id number] Jan, [facility] [place] [address] [id number] [place] [id number] Jan, [facility] [place] [address] [id number] [place] [id number] Jan, [facility] [place] [address] [id number] [place] [id number] Jan, [facility] [place] [address] [id number] [place] [id number] Jan, [facility] [place] [address] [id number] [place] [id number] Jan, [facility] [place] [address] [id number] [place] [id number] Jan, [facility] [place] [address] [id number] [place] [id number] Jan, [facility] [place] [address] [id number] [place] [id number] Jan, [facility] [place] [address] [id number] [place] [id number] Jan, [facility] [place] [address] [id number] [place] [id number] Jan, [facility] [place] [address] [id number] [place] [id number] Jan, [facility] [place] [address] [id number] [place] [id number] Jan, [facility] [place] [address] [id number] [place] [id number] Jan, [facility] [place] [address] [id number] [place] [id number] Jan, [facility] [place] [address] [id number] [place] [id number] Jan, [facility] [place] [address] [id number] [place] [id number] Jan, [facility] [place] [address] [id number] [place] [id number] Jan, [facility] [place] [address] [id number] [place] [id number] Jan, [facility] [place] [address] [id number] [place] [id number] Jan, [facility] [place] [address] [id number] [place] [id number] Jan, [facility] [place] [address] [id number] [place] [id number] Jan, [facility] [place] [address] [id number] [place] [id number] Jan, [facility] [place] [address] [id number] [place] [id number] December, [facility] [place] [address] [id number] [place] [id number] December, [facility] [place] [address] [id number] [place] [id number] December, [facility] [place] [address] [id number] [place] [id number] December, [facility] [place] [address] [id number] [place] [id number] December, [facility] [place] [address] [id number] [place] [id number] December, [facility] [place] [address] [id number] [place] [id number] December, [facility] [place] [address] [id number] [place] [id number] December, [facility] [place] [address] [id number] [place] [id number] December, [facility] [place] [address] [id number] [place] [id number] December, [facility] [place] [address] [id number] [place] [id number] December, [facility] [place] [address] [id number] [place] [id number] December, [facility] [place] [address] [id number] [place] [id number] December, [facility] [place] [address] [id number] [place] [id number] December, [facility] [place] [address] [id number] [place] [id number] Nov, [facility] [place] [address] [id number] [place] [id number] Nov, [facility] [place] [address] [id number] [place] [id number] Nov, [facility] [place] [address] [id number] [place] [id number] Nov, [facility] [address] [id number] [address] [place] [id number] Nov, [facility] [address] [facility] [id number] [address] [place] [address] Nov, [facility] [address] [facility] [id number] [address] [place] [address] Sep, [facility] [address] [facility] [id number] [address] [place] [address] Sep, [facility] [address] [facility] [id number] [address] [place] [address] Jul, [facility] [address] [facility] [id number] [address] [place] [address] Jul, [facility] [address] [facility] [id number] [address] [place] [address] Jul, [facility] [address] [facility] [id number] [address] [place] [address] Jul, [facility] [address] [facility] [id number] [address] [place] [address] Jul, [facility] [address] [facility] [id number] [address] [place] [address] Jul, [facility] [address] [id number] [address] [place] [address] Jun, [facility] [address] [id number] [address] [place] [address], [place] [address] Jun, [facility] [address] [id number] [address] [place] [address], [place] [address] Jun, [facility] [address] [id number] [address] [place] [address], [place] [address] Jun, [facility] [address] [id number] [address] [place] [address], [place] [address] May, [facility] [address] [id number] [address] [place] [address], [place] [address] May, [facility] [address] [id number] [address] [place] [address], [place] [address] Feb, [facility] [address] [id number] [address] [place] [address], [place] [address] Feb, [facility] [address] [id number] [address] [place] [address], [place] [address] Feb, [facility] [address] [id number] [address] [place] [address], [place] [address] Feb, [facility] [address] [id number] [address] [place] [address], [place] [address] Jan, [facility] [address] [id number] [address] [place] [address], [place] [address] Jan, [facility] [address] [id number] [address] [place] [address], [place] [address] Jan, [facility] [address] [id number] [address] [place] [address], [place] [address] Jan, [facility] [address] [id number] [address] [place] [address], [place] [address] December, [facility] [address] [id number] [address] [place] [address], [place] [address] December, [facility] [address] [id number] [address] [place] [address], [place] [address] December, [facility] [address] [id number] [facility] [place] [address] December, [facility] [address] [id number] [address] [place] [address], [place] [address] December, [facility] [address] [id number] [address] [place] [address], [place] [address] December, [facility] [address] [id number] [address] [place] [address], [place] [address] December, [facility] [address] [id number] [address] [place] [address], [place] [address] December, [facility] [address] [id number] [address] [place] [address], [place] [address] December, [facility] [address] [id number] [address] [place] [address], [place] [address] December, [facility] [address] [id number] [address] [place] [address], [place] [address] December, [facility] [address] [id number] [address] [place] [address], [place] [address] December, [facility] [address] [id number] [address] [place] [address], [place] [address] December, [facility] [address] [id number] [address] [place] [address], [place] [address] December, [facility] [address] [id number] [address] [place] [address], [place] [address] December, [facility] [address] [id number] [address] [place] [address], [place] [address] December, [facility] [address] [id number] [address] [place] [address], [place] [address] December, [facility] [address] [id number] [address] [place] [address], [place] [address] Nov, [facility] [address] [id number] [facility] [place] [address] Nov, [facility] [address] [id number] [address] [place] [address], [place] [address] Nov, [facility] [address] [id number] [address] [place] [address], [place] [address] Nov, [facility] [address] [id number] [address] [place] [address], [place] [address] Nov, [facility] [address] [id number] [address] [place] [address], [place] [address] Nov, [facility] [address] [id number] [address] [place] [address], [place] [address] Nov, [facility] [address] [id number] [address] [place] [address], [place] [address] Nov, [facility] [address] [id number] [address] [place] [address], [place] [address] Nov, [facility] [address] [id number] [address] [place] [address], [place] [address] Nov, [facility] [address] [id number] [address] [place] [address], [place] [address] Nov, [facility] [address] [id number] [address] [place] [address], [place] [address] Nov, [facility] [address] [id number] [address] [place] [address], [place] [address] Nov, [facility] [address] [id number] [address] [place] [address], [place] [address] Nov, [facility] [address] [id number] [address] [place] [address], [place] [address] Nov, [facility] [address] [id number] [address] [place] [address], [place] [address] Nov, [facility] [address] [id number] [address] [place] [address], [place] [address] Oct, [facility] [address] [id number] [facility] [place] [address] Oct, [facility] [address] [id number] [facility] [place] [address] Oct, [facility] [address] [id number] [facility] [place] [address] Oct, [facility] [address] [id number] [address] [place] [address], [place] [address] Oct, [facility] [address] [id number] [address] [place] [address], [place] [address] Oct, [facility] [address] [id number] [address] [place] [address], [place] [address] Oct, [facility] [address] [id number] [address] [place] [address], [place] [address] Oct, [facility] [address] [id number] [address] [place] [address], [place] [address] Sep, [facility] [address] [id number] [address] [place] [address], [place] [address] Sep, [facility] [address] [id number] [address] [place] [address], [place] [address] Sep, [facility] [address] [id number] [address] [place] [address], [place] [address] Sep, [facility] [address] [id number] [address] [place] [address], [place] [address] Sep, [facility] [address] [id number] [address] [place] [address], [place] [address] Sep, [facility] [address] [id number] [address] [place] [address], [place] [address] Sep, [facility] [address] [id number] [address] [place] [address], [place] [address] Sep, [facility] [address] [id number] [address] [place] [address], [place] [address] Sep, [facility] [address] [id number] [address] [place] [address], [place] [address] Sep, [facility] [address] [id number] [address] [place] [address], [place] [address] Aug, [facility] [address] [id number] [address] [place] [address], [place] [address] Aug, [facility] [address] [id number] [address] [place] [address], [place] [address] Jul, [facility] [address] [id number] [address] [place] [address], [place] [address] Jul, [facility] [address] [id number] [address] [place] [address], [place] [address] Jul, [facility] [address] [id number] [address] [place] [address], [place] [address] Jul, [facility] [address] [id number] [address] [place] [address], [place] [address] Jul, [facility] [address] [id number] [address] [place] [address], [place] [address] Jul, [facility] [address] [id number] [address] [place] [address], [place] [address] Jun, [facility] [address] [id number] [address] [place] [id number] Jun, [facility] [address] [id number] [address] [place] [address], [place] [address] Jun, [facility] [address] [id number] [address] [place] [address], [place] [address] May, [facility] [address] [id number] [address] [place] [address], [place] [address] December, [facility] [address] [id number] [address] [place] [id number] December, [facility] [address] [id number] [address] [place] [address] Jan, [facility] [address] [id number] [address] [place] [id number] Jan, [facility] [address] [id number] [address] [place] [address] Jan, [facility] [address] [id number] [address] [place] [id number] Jan, [facility] [address] [id number] [address] [place] [id number] December, [facility] [address] [id number] [place] [id number] December, [facility] [address] [facility] [id number] [address] [place] [id number] December, [facility] [address] [id number] [address] [place] [id number] December, [facility] [address] [facility] [id number] [address] [place] [id number] December, [facility] [address] [id number] [address] [place] [id number] Oct, [facility] [address] [facility] [id number] [address] [place] [id number] Jul, [facility] [address] [id number] [address] [place] [id number] Jul, [facility] [address] [id number] [address] [place] [id number] Jun, IMMUNIZATIONS No Known Immunizations SOCIAL HISTORY [email or web address]
--- NOTE | 2019-11-24 00:54 | ED Lower Extremity ---
General Chief Complaint: Lower Extremity Stated Complaint: RT ANKLE PAIN Source: patient Exam Limitations: no limitations History of Present Illness Date Seen by Provider: Nov 24, 2019 Time Seen by Provider: 00:36 Initial Comments Patient presents ER by private conveyance with chief complaint that just prior to arrival she was stepping down the third step in front of her house when her right foot inverted she heard a loud popping sensation and pain. She was able to walk on it shortly after the fall. She did not strike anything else nor have any other significant pain. She's not having loss of consciousness. She is no previous injury to her ankle. She has been using ice occasionally. No Tylenol, ibuprofen, elevation, compression. Allergies and Home Medications Allergies Coded Allergies: No Known Drug Allergies (Unverified , 04/19/13) Home Medications Docusate Sodium 100 Mg Capsule, 100 MG PO BID PRN for CONSTIPATION-1ST LINE Prescribed by: JENNIFER POZO on 11/04/17 1224 Hydrocodone Bit/Acetaminophen 1 Tab Tab, 1-2 TAB PO Q4H PRN for PAIN-MODERATE Prescribed by: JENNIFER POZO on 11/04/17 1224 Ibuprofen 600 Mg Tablet, 600 MG PO Q6H Prescribed by: JENNIFER POZO on 11/04/17 1224 Multivitamin 1 Each Tab.chew, 2 EACH PO DAILY, (Reported) Omeprazole 20 Mg Tablet.dr, 20 MG PO DAILY, (Reported) Sertraline HCl 25 Mg Tablet, 25 MG PO DAILY, (Reported) Patient Home Medication List Home Medication List Reviewed: Yes Review of Systems Constitutional: No chills, No diaphoresis EENTM: No ear discharge, No ear pain Respiratory: No cough, No short of breath Cardiovascular: No chest pain, No edema Gastrointestinal: No abdominal pain, No nausea Genitourinary: No discharge, No dysuria Musculoskeletal: see HPI; No back pain; joint pain Skin: No pruritus, No rash Psychiatric/Neurological: Denies Headache, Denies Numbness Past Nsdgapn-Ymysmo-Fkxwrk Hx Patient Social History Alcohol Use: Denies Use Recreational Drug Use: No Smoking Status: Current Everyday Smoker Type Used: Cigarettes Recent Foreign Travel: No Contact w/Someone Who Travel: No Recent Hopitalizations: No Immunizations Up To Date Tetanus Booster (TDap): Less than 5yrs PED Vaccines UTD: No Date of Influenza Vaccine: Sep 16, 2013 Seasonal Allergies Seasonal Allergies: No Past Medical History Surgeries: Yes (WISDOM TEETH, X 2) Appendectomy, Section Respiratory: No Cardiac: No Neurological: No Reproductive Disorders: No Female Reproductive Disorders: Denies Sexually Transmitted Disease: No HIV/AIDS: No Genitourinary: Yes Bladder Infection Gastrointestinal: Yes Gastroesophageal Reflux, Chronic Constipation Musculoskeletal: No Endocrine: No HEENT: No Cancer: No Psychosocial: No Integumentary: No Blood Disorders: No Adverse Reaction/Blood Tranf: No Family Medical History Adopted No Pertinent Family Hx Physical Exam Vital Signs Capillary Refill : Height, Weight, BMI Height: 5'3.00" Weight: 197lbs. 8.0oz. 89.519904lb; 35.0 BMI Method:Stated General Appearance: WD/WN, no apparent distress HEENT: PERRL/EOMI, pharynx normal Neck: full range of motion, normal inspection Cardiovascular: normal peripheral pulses, regular rate, rhythm Respiratory: no respiratory distress, no accessory muscle use Gastrointestinal: normal bowel sounds, non tender Ankles: left ankle non-tender; bilateral ankle normal inspection, bilateral ankle normal range of motion; left ankle no evidence of injury; right ankle pain, right ankle soft tissue tenderness, right ankle other (no pain to either p osterior malleoli.) Feet: left foot non-tender; bilateral foot normal inspection, bilateral foot normal range of motion; left foot no evidence of injury; right foot soft tissue tenderness (lateral) Neurologic/Tendon: normal sensation, normal motor functions, normal tendon functions, responds to pain Neurologic/Psychiatric: no motor/sensory deficits, alert, normal mood/affect, oriented x 3 Skin: normal color, warm/dry Progress/Results/Core Measures Progress Progress Note : Time: 00:51 Progress Note [place] Knee Rules Age Greater Than or Equal To 55: No Isolated Tenderness of Patella (No other bony tenderness): No Tenderness at Fibular Head: No Unable to Flex Knee to 90 Degrees: No Unable to Bear Weight both Immediately and in ED (4 steps, limping is okay): No No Indicated Knee Imaging. We have instructed her to use rest, ice, compression and elevation. We will provide her with either an Lucian bandage or an inflatable ankle splint. Departure Impression Primary Impression: Sprain and strain of ankle Disposition: 01 HOME, SELF-CARE Condition: Stable Departure-Patient Inst. Decision time for Depature: 00:52 Referrals: [facility] (PCP/Family) Primary Care Physician Patient Instructions: Ankle Sprain (DC) Add. Discharge Instructions: Rest your ankle and use it sparingly for the next few days. Ice applied for 20 minutes every 4 hours while awake for the next 1-2 days. Tylenol 1000 mg every 8 hours as needed for pain. Ibuprofen 800 mg every 8 hours as needed for pain. Use a compression dressing such as a neoprene sleeve, elastic bandage or the air splint for the first 4-7 days as necessary. If you're still having significant pain or difficulty walking after 7-10 days then you need to follow-up with your primary care doctor for reevaluation. All discharge instructions reviewed with patient and/or family. Voiced understanding. Work/School Note: Work Release Form Date Seen in the Emergency Department: Nov 24, 2019 Return to Work: Nov 25, 2019 Restrictions: Need Release from Doctor Other Restrictions Listed Below: Minimize standing until 11/29/19. FREYA MATOS Nov 24, 2019 00:54
--- OUTSIDE RECORDS SUMMARY | 2019-11-24 00:54 | XMS REPORT | Continuity of Care Document ---
Author Organization Unknown Address Unknown Phone Unavailable Allergies Active Description Code Type Severity Reaction Onset Reported/Identified Relationship to Patient Clinical Status Yes NO KNOWN DRUG ALLERGIES UNKNOWN UNKNOWN Yes No Known Drug Allergies [id number] Drug Allergy Unknown N/A 04/19/2013 Medications Medication Packaging Start Date St op Date Route Dosage Sig Ondansetron 4mg oral DissolveTab (Zofran) MG 04/21/2019 04/21/2019 PRN ONCE Problems Date Dx Coded Attending Type Code Diagnosis Diagnosed By 02/06/2011 719.41 anitra nt pain, localized in the left shoulder 02/06/2011 719.41 anitra nt pain, localized in the left shoulder 02/06/2011 ANGELIA REBOLLAR DO 719.41 joint pain, localized in the left shoulder 02/06/2011 NELLY HELLER APRN 719.41 joint pain, localized in the left shoulder 02/06/2011 NELLY HELLER APRN 719.41 joint pain, localized in the left shoulder 02/06/2011 WILMAN PEÑALOZA MD 719 .41 joint pain, localized in the left shoulder 02/06/2011 WILMAN PEÑALOZA MD 719 .41 joint pain, localized in the left shoulder 02/06/2011 WILMAN PEÑALOZA MD 719 .41 joint pain, localized in the left shoulder 02/06/2011 WILMAN PEÑALOZA MD 719 .41 joint pain, localized in the left shoulder 02/06/2011 WILMAN PEÑALOZA MD 719 .41 joint pain, localized in the left shoulder 02/06/2011 WILMAN PEÑALOZA MD 719 .41 joint pain, localized in the left shoulder 02/06/2011 WILMAN PEÑALOZA MD 719 .41 JOINT PAIN, LOCALIZED IN THE LEFT SHOULDER [...] LOCALIZED IN THE LEFT SHOULDER 02/06/2011 PINA HOG ROOM SUPERVISOR, NELLY A 719.41 JOINT PAIN, LOCALIZED IN THE LEFT SHOULDER 02/06/2011 REBOLLAR DO, ANGELIA K 719.41 JOINT PAIN, LOCALIZED IN THE LEFT SHOULDER 02/06/2011 PINA HOG ROOM SUPERVISOR, NELLY A 719.41 JOINT PAIN, LOCALIZED IN THE LEFT SHOULDER 02/06/2011 PINA HOG ROOM SUPERVISOR, NELLY A 719.41 JOINT PAIN, LOCALIZED IN THE LEFT SHOULDER 02/20/2011 831.00 GRISEL SED DISLOCATION OF SHOULDER UNSPECIFIED SITE 02/20/2011 831.00 GRISEL SED DISLOCATION OF SHOULDER UNSPECIFIED SITE 02/20/2011 NAVI REBOLLAR DOA K 831.00 CLOSED DISLOCATION OF SHOULDER UNSPECIFIED SITE 02/20/2011 PINA HOG ROOM SUPERVISOR, NELLY A 831.00 CLOSED DISLOCATION OF SHOULDER UNSPECIFIED SITE 02/20/2011 PINA HOG ROOM SUPERVISOR, NELLY A 831.00 CLOSED DISLOCATION OF SHOULDER UNSPECIFIED SITE 02/20/2011 WILMAN PEÑALOZA MD N 831 .00 CLOSED DISLOCATION OF SHOULDER UNSPECIFIED SITE 02/20/2011 WILMAN PEÑALOZA MD N 831 .00 CLOSED DISLOCATION OF SHOULDER UNSPECIFIED SITE 02/20/2011 WILMAN PEÑALOZA MD N 831 .00 CLOSED DISLOCATION OF SHOULDER UNSPECIFIED SITE 02/20/2011 WILMAN PEÑALOZA MD N 831 .00 CLOSED DISLOCATION OF SHOULDER UNSPECIFIED SITE 02/20/2011 WILMAN PEÑALOZA MD N 831 .00 CLOSED DISLOCATION OF SHOULDER UNSPECIFIED SITE 02/20/2011 WILMAN PEÑALOZA MD N 831 .00 CLOSED DISLOCATION OF SHOULDER UNSPECIFIED SITE 02/20/2011 WILMAN PEÑALOZA MD N 831 .00 CLOSED DISLOCATION OF SHOULDER UNSPECIFIED SITE 02/20/2011 NAVI REBOLLAR DOA K 831.00 CLOSED DISLOCATION OF SHOULDER UNSPECIFIED SITE 02/20/2011 NAVI REBOLLAR DOA K 831.00 CLOSED DISLOCATION OF SHOULDER UNSPECIFIED SITE 02/20/2011 ANGELIA REBOLLAR DO K 831.00 CLOSED DISLOCATION OF SHOULDER UNSPECIFIED SITE 02/20/2011 NAVI REBOLLAR DOA K 831.00 CLOSED DISLOCATION OF SHOULDER UNSPECIFIED SITE 02/20/2011 NAVI REBOLLAR DOA K 831.00 CLOSED DISLOCATION OF SHOULDER UNSPECIFIED SITE 02/20/2011 PINA LARSEN, NELLY A 831.00 CLOSED DISLOCATION OF SHOULDER UNSPECIFIED SITE 02/20/2011 ANGELIA REBOLLAR DO K 831.00 CLOSED DISLOCATION OF SHOULDER UNSPECIFIED SITE 02/20/2011 PINA HOG ROOM SUPERVISOR, NELLY A 831.00 CLOSED DISLOCATION OF SHOULDER UNSPECIFIED SITE 02/20/2011 PINA HOG ROOM SUPERVISOR, NELLY A 831.00 CLOSED DISLOCATION OF SHOULDER UNSPECIFIED SITE 07/23/2011 V25.01 Ora l Contraceptives 07/23/2011 V65.45 Ant icipatory Guidance: Unsafe Sexual Practices 07/23/2011 V74.5 STD SCREEN 07/23/2011 V25.01 Ora l Contraceptives 07/23/2011 V65.45 Ant icipatory Guidance: Unsafe Sexual Practices 07/23/2011 V74.5 STD SCREEN 07/23/2011 ANGELIA REBOLLAR DO K V25.01 Oral Contraceptives 07/23/2011 KETURAH GRAHAMANGELIA K V65.45 Anticipatory Guidance: Unsafe Sexual Practices 07/23/2011 NAVI REBOLLAR DOA K V74.5 STD SCREEN 07/23/2011 PINA HOG ROOM SUPERVISOR, NELLY A V25.01 Oral Contraceptives 07/23/2011 PINA HOG ROOM SUPERVISOR, NELLY A V65.45 Anticipatory Guidance: Unsafe Sexual Practices 07/23/2011 PINA APRN, NELLY A V7 4.5 STD SCREEN 07/23/2011 PINA HOG ROOM SUPERVISOR, NELLY A V25.01 Oral Contraceptives 07/23/2011 PINA HOG ROOM SUPERVISOR, NELLY A V65.45 Anticipatory Guidance: Unsafe Sexual Practices 07/23/2011 PINA LARSEN, NELLY A V7 4.5 STD SCREEN 07/23/2011 WILMAN PEÑALOZA MD V25 .01 Oral Contraceptives 07/23/2011 WILMAN PEÑALOZA MD V65 .45 Anticipatory Guidance: Unsafe Sexual Practices 07/23/2011 WILMAN PEÑALOZA MD V74 .5 STD SCREEN 07/23/2011 ANABELA MD, WILMAN N V25 .01 Oral Contraceptives 07/23/2011 WILMAN PEÑALOZA MD V65 .45 Anticipatory Guidance: Unsafe Sexual Practices 07/23/2011 WILMAN PEÑALOZA MD V74 .5 STD SCREEN 07/23/2011 WILMAN PEÑALOZA MD V25 .01 Oral Contraceptives 07/23/2011 WILMAN PEÑALOZA MD V65 .45 Anticipatory Guidance: Unsafe Sexual Practices 07/23/2011 WILMAN PEÑALOZA MD V74 .5 STD SCREEN 07/23/2011 WILMAN PEÑALOZA MD V25 .01 Oral Contraceptives 07/23/2011 WILMAN PEÑALOZA MD V65 .45 Anticipatory Guidance: Unsafe Sexual Practices 07/23/2011 WILMAN PEÑALOZA MD V74 .5 STD SCREEN 07/23/2011 WILMAN PEÑALOZA MD V25 .01 Oral Contraceptives 07/23/2011 WILMAN PEÑALOZA MD V65 .45 Anticipatory Guidance: Unsafe Sexual Practices 07/23/2011 WILMAN PEÑALOZA MD V74 .5 STD SCREEN 07/23/2011 WILMAN PEÑALOZA MD V25 .01 Oral Contraceptives 07/23/2011 WILMAN PEÑALOZA MD V65 .45 Anticipatory Guidance: Unsafe Sexual Practices 07/23/2011 WILMAN PEÑALOZA MD V74 .5 STD SCREEN 07/23/2011 WILMAN PEÑALOZA MD V25 .01 ORAL CONTRACEPTIVES 07/23/2011 WILMAN PEÑALOZA MD V65 .45 ANTICIPATORY GUIDANCE: UNSAFE SEXUAL PRACTICES 07/23/2011 WILMAN PEÑALOZA MD V74 .5 STD SCREEN 07/23/2011 REBOLLAR DO ANGELIA K V25.01 ORAL CONTRACEPTIVES 07/23/2011 KETURAH GRAHAM ANGELIA K V65.45 ANTICIPATORY GUIDANCE: UNSAFE SEXUAL PRACTICES 07/23/2011 REBOLLAR DO, ANGELIA K V74.5 STD SCREEN 07/23/2011 REBOLLAR DO ANGELIA K V25.01 ORAL CONTRACEPTIVES 07/23/2011 REBOLLAR DO ANGELIA K V65.45 ANTICIPATORY GUIDANCE: UNSAFE SEXUAL PRACTICES 07/23/2011 REBOLLAR DO ANGELIA K V74.5 STD SCREEN 07/23/2011 REBOLLAR [...] DO, ANGELIA K V74.5 STD SCREEN 07/23/2011 PINA HOG ROOM SUPERVISOR, NELLY A V25.01 ORAL CONTRACEPTIVES 07/23/2011 PINA HOG ROOM SUPERVISOR, NELLY A V65.45 ANTICIPATORY GUIDANCE: UNSAFE SEXUAL PRACTICES 07/23/2011 PINA HOG ROOM SUPERVISOR, NELLY A V7 4.5 STD SCREEN 07/23/2011 REBOLLAR DO, ANGELIA K V25.01 ORAL CONTRACEPTIVES 07/23/2011 REBOLLAR DO, ANGELIA K V65.45 ANTICIPATORY GUIDANCE: UNSAFE SEXUAL PRACTICES 07/23/2011 REBOLLAR DO, ANGELIA K V74.5 STD SCREEN 07/23/2011 PINA HOG ROOM SUPERVISOR, NELLY A V25.01 ORAL CONTRACEPTIVES 07/23/2011 PINA HOG ROOM SUPERVISOR, NELLY A V65.45 ANTICIPATORY GUIDANCE: UNSAFE SEXUAL PRACTICES 07/23/2011 PINA HOG ROOM SUPERVISOR, NELLY A V7 4.5 STD SCREEN 07/23/2011 PINA HOG ROOM SUPERVISOR, NELLY A V25.01 ORAL CONTRACEPTIVES 07/23/2011 PINA HOG ROOM SUPERVISOR, NELLY A V65.45 ANTICIPATORY GUIDANCE: UNSAFE SEXUAL PRACTICES 07/23/2011 PINA HOG ROOM SUPERVISOR, NELLY A V7 4.5 STD SCREEN 11/04/2011 V72.41 PRE GNANCY EXAMINATION OR TEST NEGATIVE RESULT 11/04/2011 V72.41 PRE GNANCY EXAMINATION OR TEST NEGATIVE RESULT 11/04/2011 REBOLLAR DO ANGELIA K V72.41 EXAMINATION OR TEST NEGATIVE RESULT 11/04/2011 PINA LARSEN NELLY A V72.41 EXAMINATION OR TEST NEGATIVE RESULT 11/04/2011 PINA LARSEN NELLY A V72.41 EXAMINATION OR TEST NEGATIVE RESULT 11/04/2011 ANABELA BLACKBURN, WILMAN Steele V72 .41 EXAMINATION OR TEST NEGATIVE RESULT 11/04/2011 WILMAN PEÑALOZA MD V72 .41 EXAMINATION OR TEST NEGATIVE RESULT 11/04/2011 WILMAN PEÑALOZA MD V72 .41 EXAMINATION OR TEST NEGATIVE RESULT 11/04/2011 WILMAN PEÑALOZA MD V72 .41 EXAMINATION OR TEST NEGATIVE RESULT 11/04/2011 WILMAN PEÑALOZA MD V72 .41 EXAMINATION OR TEST NEGATIVE RESULT 11/04/2011 WILMAN PEÑALOZA MD V72 .41 EXAMINATION OR TEST NEGATIVE RESULT 11/04/2011 WILMAN PEAÑLOZA MD V72 .41 EXAMINATION OR TEST NEGATIVE RESULT 11/04/2011 REBOLLAR [...] EXAMINATION OR TEST NEGATIVE RESULT 11/04/2011 PINA LARSEN, NELLY A V72.41 EXAMINATION OR TEST NEGATIVE RESULT 01/06/2012 461.9 SINU SITIS ACUTE 01/06/2012 786.2 cough 01/06/2012 461.9 SINU SITIS ACUTE 01/06/2012 786.2 cough 01/06/2012 REBOLLAR DO, ANGELIA K 461.9 SINUSITIS ACUTE 01/06/2012 REBOLLAR DO, ANGELIA K 786.2 cough 01/06/2012 PINA LARSEN, NELLY A 46 1.9 SINUSITIS ACUTE 01/06/2012 PINA LARSEN NELLY A 78 6.2 cough 01/06/2012 PINA LARSEN NELLY A 46 1.9 SINUSITIS ACUTE 01/06/2012 PINA LARSEN NELLY A 78 6.2 cough 01/06/2012 WILMAN PEÑALOZA MD N 461 .9 SINUSITIS ACUTE 01/06/2012 WILMAN PEÑALOZA MD N 786 .2 cough 01/06/2012 WILMAN PEÑALOZA MD N 461 .9 SINUSITIS ACUTE 01/06/2012 ANABELA BLACKBURN, WILMAN N 786 .2 COUGH 01/06/2012 WILMAN PEÑALOZA MD N 461 .9 SINUSITIS ACUTE 01/06/2012 WILMAN PEÑALOZA MD N 786 .2 COUGH 01/06/2012 DOM PEÑALOZA MDY N 461 .9 SINUSITIS ACUTE 01/06/2012 WILMAN PEÑALOZA MD N 786 .2 COUGH 01/06/2012 WILMAN PEÑALOZA MD N 461 .9 SINUSITIS ACUTE 01/06/2012 WILMAN PEÑALOZA MD N 786 .2 COUGH 01/06/2012 WILMAN PEÑALOZA MD N 461 .9 SINUSITIS ACUTE 01/06/2012 WILMAN PEÑALOZA MD N 786 .2 COUGH 01/06/2012 WILMAN PEÑALOZA MD N 461 .9 SINUSITIS ACUTE 01/06/2012 DOM PEÑALOZA MDY N 786 .2 COUGH 01/06/2012 REBOLLAR DO, ANGELIA K 461.9 [...] DO, ANGELIA K 786.2 COUGH 01/06/2012 PINA HOG ROOM SUPERVISOR, NELLY A 46 1.9 SINUSITIS ACUTE 01/06/2012 PINA HOG ROOM SUPERVISOR, NELLY A 78 6.2 COUGH 01/06/2012 REBOLLAR DO, ANGELIA K 461.9 SINUSITIS ACUTE 01/06/2012 REBOLLAR DO, ANGELIA K 786.2 COUGH 01/06/2012 PINA HOG ROOM SUPERVISOR, NELLY A 46 1.9 SINUSITIS ACUTE 01/06/2012 PINAEDD Steele APRNIDI A 78 6.2 COUGH 01/06/2012 EDD HELLER APRNIDI A 46 1.9 SINUSITIS ACUTE 01/06/2012 PINAEDD Steele APRNIDI A 78 6.2 COUGH 01/15/2012 112.1 CAND IDIASIS VAGINAL 01/15/2012 112.1 CAND IDIASIS VAGINAL 01/15/2012 KETURAH GRAHAM ANGELIA K 112.1 CANDIDIASIS VAGINAL 01/15/2012 PINAEDD Steele APRNIDI A 11 2.1 CANDIDIASIS VAGINAL 01/15/2012 PINAEDD Steele APRNIDI A 11 2.1 CANDIDIASIS VAGINAL 01/15/2012 WILMAN PEÑALOZA MD N 112 .1 CANDIDIASIS VAGINAL 01/15/2012 WILMAN PEÑALOZA MD N 112 .1 CANDIDIASIS VAGINAL 01/15/2012 WILMAN PEÑALOZA MD N 112 .1 CANDIDIASIS VAGINAL 01/15/2012 WILMAN PEÑALOZA MD N 112 .1 CANDIDIASIS VAGINAL 01/15/2012 WILMAN PEÑALOZA MD N 112 .1 CANDIDIASIS VAGINAL 01/15/2012 WILMAN PEÑALOZA MD N 112 .1 CANDIDIASIS VAGINAL 01/15/2012 WILMAN PEÑALOZA MD N 112 .1 CANDIDIASIS VAGINAL 01/15/2012 KETURAH GRAHAM, ANGELIA K 112.1 CANDIDIASIS VAGINAL 01/15/2012 REBOLLAR DO, ANGELIA K 112.1 CANDIDIASIS VAGINAL 01/15/2012 REBOLLAR DO, ANGELIA K 112.1 CANDIDIASIS VAGINAL 01/15/2012 REBOLLAR DO, ANGELIA K 112.1 CANDIDIASIS VAGINAL 01/15/2012 REBOLLAR DO, ANGELIA K 112.1 CANDIDIASIS VAGINAL 01/15/2012 PINAEDD Steele APRNIDI A 11 2.1 CANDIDIASIS VAGINAL 01/15/2012 REBOLLAR DO, ANGELIA K 112.1 CANDIDIASIS VAGINAL 01/15/2012 PINAEDD Steele APRNIDI A 11 2.1 CANDIDIASIS VAGINAL 01/15/2012 PINAEDD Steele APRNIDI A 11 2.1 CANDIDIASIS VAGINAL 01/20/2012 477.9 KENYON RGIC RHINITIS 01/20/2012 477.9 KENYON RGIC RHINITIS 01/20/2012 REBOLLAR , ANGELIA K 477.9 ALLERGIC RHINITIS 01/20/2012 PINAEDD Steele APRNIDI A 47 7.9 ALLERGIC RHINITIS 01/20/2012 PINA HOG ROOM SUPERVISOR, NELLY A 47 7.9 ALLERGIC RHINITIS 01/20/2012 ANABELA BLACKBURN, WILMAN N 477 .9 ALLERGIC RHINITIS 01/20/2012 ANABELA BLACKBURN, WILMAN N 477 .9 ALLERGIC RHINITIS 01/20/2012 ANABELA BLACKBURN, WILMAN N 477 .9 ALLERGIC RHINITIS 01/20/2012 ANABELA BLACKBURN, WILMAN N 477 .9 ALLERGIC RHINITIS 01/20/2012 ANABELA BLACKBURN, WILMAN N 477 .9 ALLERGIC RHINITIS 01/20/2012 ANABELA BLACKBURN, WILMAN N 477 .9 ALLERGIC RHINITIS 01/20/2012 ANABELA BLACKBURN, WILMAN N 477 .9 ALLERGIC RHINITIS 01/20/2012 REBOLLAR DO, ANGELIA K 477.9 ALLERGIC RHINITIS 01/20/2012 REBOLLAR DO, ANGELIA K 477.9 ALLERGIC RHINITIS 01/20/2012 REBOLLAR DO, ANGELIA K 477.9 ALLERGIC RHINITIS 01/20/2012 REBOLLAR DO, ANGELIA K 477.9 ALLERGIC RHINITIS 01/20/2012 REBOLLAR DO, ANGELIA K 477.9 ALLERGIC RHINITIS 01/20/2012 PINA HOG ROOM SUPERVISOR, NELLY A 47 7.9 ALLERGIC RHINITIS 01/20/2012 REBOLLAR DO, ANGELIA K 477.9 ALLERGIC RHINITIS 01/20/2012 PINA HOG ROOM SUPERVISOR, NELLY A 47 7.9 ALLERGIC RHINITIS 01/20/2012 PINA HOG ROOM SUPERVISOR, NELLY A 47 7.9 ALLERGIC RHINITIS 01/27/2012 079.98 CHL AMYDIA 01/27/2012 079.98 CHL AMYDIA 01/27/2012 REBOLLAR DO, ANGELIA K 079.98 CHLAMYDIA 01/27/2012 PINA HOG ROOM SUPERVISOR, NELLY A 079.98 CHLAMYDIA 01/27/2012 PINA HOG ROOM SUPERVISOR, NELLY A 079.98 CHLAMYDIA 01/27/2012 WILMAN PEÑALOZA MD N 079 .98 CHLAMYDIA 01/27/2012 WILMAN PEÑALOZA MD N 079 .98 CHLAMYDIA 01/27/2012 WILMAN PEÑALOZA MD N 079 .98 CHLAMYDIA 01/27/2012 WILMAN PEÑALOZA MD N 079 .98 CHLAMYDIA 01/27/2012 WILMAN PEÑALOZA MD N 079 .98 CHLAMYDIA 01/27/2012 WILMAN PEÑALOZA MD N 079 .98 CHLAMYDIA 01/27/2012 WILMAN PEÑALOZA MD 079 .98 CHLAMYDIA 01/27/2012 REBOLLAR DO, ANGELIA K 079.98 CHLAMYDIA 01/27/2012 REBOLLAR DO, ANGELIA K 079.98 CHLAMYDIA 01/27/2012 REBOLLAR DO, ANGELIA K 079.98 CHLAMYDIA 01/27/2012 REBOLLAR DO, ANGELIA K 079.98 CHLAMYDIA 01/27/2012 REBOLLAR DO, ANGELIA K 079.98 CHLAMYDIA 01/27/2012 PINA HOG ROOM SUPERVISOR, NELLY A 079.98 CHLAMYDIA 01/27/2012 REBOLLAR DO, ANGELIA K 079.98 CHLAMYDIA 01/27/2012 PINA HOG ROOM SUPERVISOR, NELLY A 079.98 CHLAMYDIA 01/27/2012 PINA HOG ROOM SUPERVISOR, NELLY A 079.98 CHLAMYDIA 04/20/2013 [place] FEL[place] GRAHAM Ot 540. 9 ACUTE APPENDICITIS NOS 05/27/2013 REBOLLAR DONAVIA K V72.42 TEST POSITIVE RESULT 05/27/2013 NELLY HELLER APRN A V72.42 TEST POSITIVE RESULT 05/27/2013 NELLY HELLER APRN A V72.42 TEST POSITIVE RESULT 05/27/2013 WILMAN PEÑALOZA MD V72 .42 TEST POSITIVE RESULT 05/27/2013 WILMAN PEÑALOZA MD V72 .42 TEST POSITIVE RESULT 05/27/2013 WILMAN PEÑALOZA MD V72 .42 TEST POSITIVE RESULT 05/27/2013 WILMAN PEÑALOZA MD V72 .42 TEST POSITIVE RESULT 05/27/2013 WILMAN PEÑALOZA MD V72 .42 TEST POSITIVE RESULT 05/27/2013 WILMAN PEÑALOZA MD V72 .42 TEST POSITIVE RESULT 05/27/2013 WILMAN PEÑALOZA MD V72 .42 TEST POSITIVE RESULT 05/27/2013 REBOLLAR DONAVIA K V72.42 TEST POSITIVE RESULT 05/27/2013 REBOLLAR DONAVIA K V72.42 TEST POSITIVE RESULT 05/27/2013 REBOLLAR DO, ANGELIA K V72.42 TEST POSITIVE RESULT 05/27/2013 REBOLLAR DO, ANGELIA K V72.42 TEST POSITIVE RESULT 05/27/2013 REBOLLAR DO, ANGELIA K V72.42 TEST POSITIVE RESULT 05/27/2013 PINA HOG ROOM SUPERVISOR, NELLY A V72.42 TEST POSITIVE RESULT 05/27/2013 REBOLLAR DO, ANGELIA K V72.42 TEST POSITIVE RESULT 05/27/2013 PINA HOG ROOM SUPERVISOR, NELLY A V72.42 TEST POSITIVE RESULT 05/27/2013 PINA HOG ROOM SUPERVISOR, NELLY A V72.42 TEST POSITIVE RESULT 06/27/2013 PINA HOG ROOM SUPERVISOR, NELLY A V2 2.0 , NORMAL FIRST 06/27/2013 PINA HOG ROOM SUPERVISOR, NELLY A V2 2.0 , NORMAL FIRST 06/27/2013 WILMAN PEÑALOZA MD N V22 .0 , NORMAL FIRST 06/27/2013 WILMAN PEÑALOZA MD N V22 .0 , NORMAL FIRST 06/27/2013 WILMAN PEÑALOZA MD N V22 .0 , NORMAL FIRST 06/27/2013 WILMAN PEÑALOZA MD N V22 .0 , NORMAL FIRST 06/27/2013 WILMAN PEÑALOZA MD N V22 .0 , NORMAL FIRST 06/27/2013 ANABELA BLACKBURN WILMAN N V22 .0 , NORMAL FIRST 06/27/2013 DOM PEÑALOZA MDY N V22 .0 , NORMAL FIRST 06/27/2013 REBOLLAR DO, ANGELIA K V22.0 , NORMAL FIRST 06/27/2013 REBOLLAR DO, ANGELIA K V22.0 , NORMAL FIRST 06/27/2013 REBOLLAR DO, ANGELIA K V22.0 , NORMAL FIRST 06/27/2013 REBOLLAR DO, ANGELIA K V22.0 , NORMAL FIRST 06/27/2013 REBOLLAR DO, ANGELIA K V22.0 , NORMAL FIRST 06/27/2013 PINA HOG ROOM SUPERVISOR, NELLY A V2 2.0 , NORMAL FIRST 06/27/2013 REBOLLAR DO, ANGELIA K V22.0 , NORMAL FIRST 06/27/2013 PINA HOG ROOM SUPERVISOR, NELLY A V2 2.0 , NORMAL FIRST 06/27/2013 PINA HOG ROOM SUPERVISOR, NELLY A V2 2.0 , NORMAL FIRST 07/25/2013 PINA HOG ROOM SUPERVISOR, NELLY A 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 07/25/2013 WILMAN PEÑALOZA MD 131 .01 TRICHOMONAL VULVOVAGINITIS 07/25/2013 WILMAN PEÑALOZA MD N 131 .01 TRICHOMONAL VULVOVAGINITIS 07/25/2013 WILMAN PEÑALOZA MD N 131 .01 TRICHOMONAL VULVOVAGINITIS 07/25/2013 WILMAN PEÑALOZA MD N 131 .01 TRICHOMONAL VULVOVAGINITIS 07/25/2013 WILMAN PEÑALOZA MD N 131 .01 TRICHOMONAL VULVOVAGINITIS 07/25/2013 WILMAN PEÑALOZA MD N 131 .01 TRICHOMONAL VULVOVAGINITIS 07/25/2013 WILMAN PEÑALOZA MD N 131 .01 TRICHOMONAL VULVOVAGINITIS 07/25/2013 NAVI REBOLLAR DOA K 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 0 URIN TRACT INFECTION NOS 09/16/2013 VICTORINA HERNANDEZ MD Ot 646. 63 INFECTION-ANTEPARTUM 09/20/2013 WILMAN PEÑALOZA MD N V04 .81 FLU SHOT 09/20/2013 WILMAN PEÑALOZA MD N V04 .81 FLU SHOT 09/20/2013 WILMAN PEÑALOZA MD N V04 .81 FLU SHOT 09/20/2013 WILMAN PEÑALOZA MD N V04 .81 FLU SHOT 09/20/2013 WILMAN PEÑALOZA MD N V04 .81 FLU SHOT 09/20/2013 WILMAN PEÑALOZA MD N V04 .81 FLU SHOT 09/20/2013 REBOLLAR DO, ANGELIA Sheets V04.81 FLU SHOT 09/20/2013 REBOLLAR DO, ANGELIA K V04.81 FLU SHOT 09/20/2013 REBOLLAR DO, ANGELIA K V04.81 FLU SHOT 09/20/2013 REBOLLAR DO, ANGELIA K V04.81 FLU SHOT 09/20/2013 REBOLLAR DO, ANGELIA K V04.81 FLU SHOT 09/20/2013 PINA HOG ROOM SUPERVISOR, NELLY A V04.81 FLU SHOT 09/20/2013 REBOLLAR DO, ANGELIA K V04.81 FLU SHOT 09/20/2013 PINA HOG ROOM SUPERVISOR, NELLY A V04.81 FLU SHOT 09/20/2013 PINA HOG ROOM SUPERVISOR, NELLY A V04.81 FLU SHOT 10/17/2013 REBOLLAR DO, ANGELIA Sheets Ot 646.83 PREG COMPL NEC-ANTEPART 10/17/2013 REBOLLAR DO, ANGELIA Sheets Ot 789.09 ABDOMINAL PAIN, OTHER SPECIFIED SITE 11/15/2013 ANABELA BLACKBURN, WILMAN Steele V06 .1 TDAP DX 11/15/2013 ANABELA BLACKBURN, WILMAN Steele V06 .1 TDAP DX 11/15/2013 WILMAN PEÑALOZA MD V06 .1 TDAP DX 11/15/2013 WILMAN PEÑALOZA MD V06 .1 TDAP DX 11/15/2013 REBOLLAR DO, ANGELIA Sheets V06.1 TDAP DX 11/15/2013 REBOLLAR DO, ANGELIA K V06.1 TDAP DX 11/15/2013 REBOLLAR DO, ANGELIA K V06.1 TDAP DX 11/15/2013 REBOLLAR DO, ANGELIA K V06.1 TDAP DX 11/15/2013 REBOLLAR DO, ANGELIA K V06.1 TDAP DX 11/15/2013 PINA HOG ROOM SUPERVISOR, NELLY A V0 6.1 TDAP DX 11/15/2013 REBOLLAR DO, ANGELIA K V06.1 TDAP DX 11/15/2013 PINA HOG ROOM SUPERVISOR, NELLY A V0 6.1 TDAP DX 11/15/2013 PINA HOG ROOM SUPERVISOR, NELLY A V0 6.1 TDAP DX 11/29/2013 REBOLLAR DO, ANGELIA Sheets Ot 658.03 OLIGOHYDRAMNIOS-ANTEPAR 11/30/2013 ANABELA MD, WILMAN N 642 .90 COMPL OF - HTN/PIH 11/30/2013 WILMAN PEÑALOZA MD N 644 .00 LABOR 11/30/2013 WILMAN PEÑALOZA MD N 655 .73 DECREASED MOVEMENT 11/30/2013 WILMAN PEÑALOZA MD N 642 .90 COMPL OF - HTN/PIH 11/30/2013 WILMAN PEÑALOZA MD N 644 .00 LABOR 11/30/2013 WILMAN PEÑALOZA MD N 655 .73 DECREASED MOVEMENT 11/30/2013 WILMAN PEÑALOZA MD N 642 .90 COMPL OF - HTN/PIH 11/30/2013 WILMAN PEÑALOZA MD N 644 .00 LABOR 11/30/2013 WILMAN PEÑALOZA MD N 655 .73 DECREASED MOVEMENT 11/30/2013 KETURAH DO ANGELIA K 642.90 COMPL OF - HTN/PIH 11/30/2013 REBOLLAR DO, ANGELIA K 644.00 LABOR 11/30/2013 REBOLLAR DO ANGELIA K 655.73 DECREASED MOVEMENT 11/30/2013 REBOLLAR [...] DO, ANGELIA K 655.73 DECREASED MOVEMENT 11/30/2013 NELLY HELLER APRN 642.90 COMPL OF - HTN/PIH 11/30/2013 PINA HOG ROOM SUPERVISOR, NELLY A 644.00 LABOR 11/30/2013 PINA HOG ROOM SUPERVISOR, NELLY A 655.73 DECREASED MOVEMENT 11/30/2013 KETURAH DO ANGELIA K 642.90 COMPL OF - HTN/PIH 11/30/2013 REBOLLAR DO, ANGELIA K 644.00 LABOR 11/30/2013 REBOLLAR DO, ANGELIA K 655.73 DECREASED MOVEMENT 11/30/2013 PINA HOG ROOM SUPERVISOR, NELLY A 642.90 COMPL OF - HTN/PIH 11/30/2013 PINA HOG ROOM SUPERVISOR, NELLY A 644.00 LABOR 11/30/2013 PINA HOG ROOM SUPERVISOR, NELLY A 655.73 DECREASED MOVEMENT 11/30/2013 PINA HOG ROOM SUPERVISOR, NELLY A 642.90 COMPL OF - HTN/PIH 11/30/2013 PINA HOG ROOM SUPERVISOR, NELLY A 644.00 LABOR 11/30/2013 PINA HOG ROOM SUPERVISOR, NELLY A 655.73 DECREASED MOVEMENT 12/01/2013 WILMAN PEÑALOZA MD 658 .00 OLIGOHYDRAMNIOS UNSPECIFIED TO EPISODE OF CARE 12/01/2013 WILMAN PEÑALOZA MD 658 .00 OLIGOHYDRAMNIOS UNSPECIFIED TO EPISODE OF CARE 12/01/2013 WILMAN PEÑALOZA MD 658 .00 OLIGOHYDRAMNIOS UNSPECIFIED TO EPISODE OF CARE 12/01/2013 ANGELIA REBOLLAR DO K 658.00 OLIGOHYDRAMNIOS UNSPECIFIED TO EPISODE OF CARE 12/01/2013 REBOLLAR DONAVIA K 658.00 OLIGOHYDRAMNIOS UNSPECIFIED TO EPISODE OF CARE 12/01/2013 REBOLLAR DONAVIA K 658.00 OLIGOHYDRAMNIOS UNSPECIFIED TO EPISODE OF CARE 12/01/2013 REBOLLAR DO ANGELIA K 658.00 OLIGOHYDRAMNIOS UNSPECIFIED TO EPISODE OF CARE 12/01/2013 REBOLLAR DO ANGELIA K 658.00 OLIGOHYDRAMNIOS UNSPECIFIED TO EPISODE OF CARE 12/01/2013 PINA HOG ROOM SUPERVISOR, NELLY A 658.00 OLIGOHYDRAMNIOS UNSPECIFIED TO EPISODE OF CARE 12/01/2013 REBOLLAR DO ANGELIA K 658.00 OLIGOHYDRAMNIOS UNSPECIFIED TO EPISODE OF CARE 12/01/2013 NELLY HELLER APRN A 658.00 OLIGOHYDRAMNIOS UNSPECIFIED TO EPISODE OF CARE 12/01/2013 PINA LARSEN, NELLY A 658.00 OLIGOHYDRAMNIOS UNSPECIFIED TO EPISODE OF CARE 12/01/2013 ANGELIA REBOLLAR DO Ot 658.03 OLIGOHYDRAMNIOS-ANTEPAR 12/20/2013 ANABELA BLACKBURN, WILMAN N V23 .9 , HIGH-RISK (UNSPEC) 12/20/2013 REBOLLAR DO, ANGELIA K V23.9 , HIGH-RISK (UNSPEC) 12/20/2013 REBOLLAR DO, ANGELIA K V23.9 , HIGH-RISK (UNSPEC) 12/20/2013 REBOLLAR DO, ANGELIA K V23.9 , HIGH-RISK (UNSPEC) 12/20/2013 REBOLLAR DO, ANGELIA K V23.9 , HIGH-RISK (UNSPEC) 12/20/2013 KETURAH GRAHAM, ANGELIA K V23.9 , HIGH-RISK (UNSPEC) 12/20/2013 PINA LARSEN NELLY A V2 3.9 , HIGH-RISK (UNSPEC) 12/20/2013 KETURAH GRAHAM, ANGELIA K V23.9 , HIGH-RISK (UNSPEC) 12/20/2013 PINA LARSEN, NELLY A V2 3.9 , HIGH-RISK (UNSPEC) 12/20/2013 PINA LARSEN, NELLY A V2 3.9 , HIGH-RISK (UNSPEC) 12/26/2013 ANGELIA REBOLLAR DO Ot 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 01/03/2014 ANGELIA REBOLLAR DO K 796.2 ELEVATED BLOOD PRESSURE READING WITHOUT DIAGNOSIS OF HYPERTENSION 01/03/2014 NAVI REBOLLAR DOA K 796.2 ELEVATED BLOOD PRESSURE READING WITHOUT DIAGNOSIS OF HYPERTENSION 01/03/2014 NAVI REBOLLAR DOA K 796.2 ELEVATED BLOOD PRESSURE READING WITHOUT DIAGNOSIS OF HYPERTENSION 01/03/2014 NAVI REBOLLAR DOA K 796.2 ELEVATED BLOOD PRESSURE READING WITHOUT DIAGNOSIS OF HYPERTENSION 01/03/2014 NAVI REBOLLAR DOA K 796.2 ELEVATED BLOOD PRESSURE READING WITHOUT DIAGNOSIS OF HYPERTENSION 01/03/2014 NELLY HELLER APRN A 79 6.2 ELEVATED BLOOD PRESSURE READING WITHOUT DIAGNOSIS OF HYPERTENSION 01/03/2014 ANGELIA REBOLLAR DO K 796.2 ELEVATED BLOOD PRESSURE READING WITHOUT DIAGNOSIS OF HYPERTENSION 01/03/2014 NELLY HELLER APRN A 79 6.2 ELEVATED BLOOD PRESSURE READING WITHOUT DIAGNOSIS OF HYPERTENSION 01/03/2014 NELLY HELLER APRN A 79 6.2 ELEVATED BLOOD PRESSURE READING WITHOUT DIAGNOSIS OF HYPERTENSION 01/08/2014 ANGELIA REBOLLAR DO Ot 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 01/09/2014 ANGELIA [...] Ot 655.73 DECR MOVEMNT ANTEPARTUM CONDITION 03/15/2014 PINACedric LARSEN NELLY A V2 4.2 F/U, ROUTINE 03/15/2014 ANGELIA REBOLLAR DO V24.2 F/U, ROUTINE 03/15/2014 PINACedric LARSEN NELLY A V2 4.2 F/U, ROUTINE 03/15/2014 PINACedric LARSEN NELLY A V2 4.2 F/U, ROUTINE 06/19/2014 ANGELIA REBOLLAR DO V72.40 EXAMINATION OR TEST UNCONFIRMED 06/19/2014 PINACedric LARSEN NELLY A V72.40 EXAMINATION OR TEST UNCONFIRMED 06/19/2014 PINACedric LARSEN NELLY A V72.40 EXAMINATION OR TEST UNCONFIRMED 07/18/2014 PINACedric LARSEN NELLY A 646.50 COMPL OF - ASYMPTOMATIC BACTURIA 07/18/2014 PINACedric LARSEN NELLY A V2 2.1 , NORMAL OTHER 07/18/2014 PINABRIAN LARSEN NELLY A 646.50 COMPL OF - ASYMPTOMATIC BACTURIA 07/18/2014 PINACedric LARSEN NELLY A V2 2.1 , NORMAL OTHER 08/15/2014 PINA, NELLYNAIN Albert APRN Ot 651.03 08/15/2014 PINA NELLYNAIN Albert APRN Ot V91.09 11/25/2014 PINA NELLY A CHAVA Ot V22.0 11/25/2014 WILMAN PEÑALOZA MD Ot V22 .0 11/25/2014 ANGELIA REBOLLAR DO Ot 642.93 11/25/2014 ANGELIA REBOLLAR DO Ot 658.03 11/25/2014 ANGELIA REBOLLAR DO Ot V23.9 11/25/2014 Ot 644.03 11/25/2014 Ot 655.73 11/25/2014 NELLY HELLER APRN Ot 651.03 11/25/2014 NELLY HELLER A CHAVA Ot V91.09 11/25/2014 JENNIFER POZO DO Ot 623.5 NONINFECT VAG LEUKORRHEA 11/25/2014 JENNIFER POZO DO Ot 651.03 TWIN -ANTEPART 11/25/2014 JENNIFER POZO DO Ot 654.73 ABNORM VAGINA-ANTEPARTUM 11/25/2014 FENECH DO, JENNIFER Caraballo Ot V91.09 TWIN GEST, UNABLE TO DETERMINE # OF PLAC 12/09/2014 IRASEMAECH DO, JENNIFER Caraballo Ot 644.03 THRT CAYDEN LABOR-ANTEPART 12/09/2014 FENECH DO, JENNIFER Caraballo Ot 651.03 TWIN -ANTEPART 12/09/2014 FENECH DO, [...] Mirza Ot 644.03 THRT CAYDEN LABOR-ANTEPART 12/20/2014 YONI KHAN DO Ot 644.0 3 THRT CAYDEN LABOR-ANTEPART 12/20/2014 YONI KHAN DO Ot 651.0 3 TWIN -ANTEPART 12/20/2014 YONI KHAN DO Ot V91.0 0 TWIN GEST, UNSPEC # PLACENTA, UNSP # AMN 12/21/2014 YONI KHAN DO Ot 644.0 3 THRT CAYDEN LABOR-ANTEPART 12/21/2014 YONI KHAN DO Ot 651.0 3 TWIN -ANTEPART 12/21/2014 KHAN YONI GRAHAM Ot 653.7 3 OTH ABN FET DISPRO-ANTEP 12/21/2014 YONI KHNA DO Ot V91.0 3 TWIN GEST, DICHORIONIC/DIAMNIOTIC (2 LITZY 01/10/2015 FENECH DO, JENNIFER Caraballo Ot 276.51 DEHYDRATION 01/10/2015 FENECH DO, JENNIFER Caraballo Ot 276.8 HYPOPOTASSEMIA 01/10/2015 FENECH DO, JENNIFER Caraballo Ot 644.03 THRT CAYDEN LABOR-ANTEPART 01/10/2015 IRASEMAECH DO, JENNIFER Caraballo Ot 651.03 TWIN -ANTEPART 01/10/2015 FENECH DO, JENNIFER Caraballo Ot 655.83 ABNORM NEC-ANTEPAR 01/10/2015 FENECH DO, JENNIFER Caraballo Ot 787.91 DIARRHEA 01/10/2015 FENECH DO, JENNIFER Caraballo Ot V91.09 TWIN GEST, UNABLE TO DETERMINE # OF PLAC 01/12/2015 BERNADINE BLACKBURN, MARY Gay Ot 655.73 DECR MOVEMNT ANTEPARTUM CONDITION 01/12/2015 BERNADINE BLACKBURN, MARY Gay Ot 786.09 RESPIRATORY ABNORM NEC 01/12/2015 MARY COLINDRES MD Ot 786.59 CHEST PAIN NEC 01/12/2015 FENECH DO, JENNIFER Rashmi Ot 651.03 TWIN -ANTEPART 01/12/2015 FENECH DO, JENNIFER Rashmi Ot 655.73 DECR MOVEMNT ANTEPARTUM CONDITION 01/12/2015 IRASEMAECH , JENNIFER Caraballo Ot 655.83 ABNORM NEC-ANTEPAR 01/12/2015 IRASEMAECH DO, JENNIFER Rashmi Ot V91.09 TWIN GEST, UNABLE TO DETERMINE # OF PLAC 01/19/2015 FENECH DO, JENNIFER Caraballo Ot 651.03 01/19/2015 FENECH DO, JENNIFER Caraballo Ot 652.23 01/19/2015 FENECH DO, EJNNIFER Caraballo Ot V91.09 01/19/2015 FENECH DO, JENNIFER Caraballo Ot 651.03 01/19/2015 FENECH DO, JENNIFER Caraballo Ot 652.23 01/19/2015 FENECH DO, JENNIFER Caraballo Ot V91.09 01/26/2015 FENECH JENNIFER GRAHAM Ot 642.31 TRANS HYPERTEN-DELIVERED 01/26/2015 FENECH JENNIFER GRAHAM Ot 644.21 EARLY ONSET DELIVERY-DEL 01/26/2015 IRASEMAECH DOJENNIFER Ot 651.01 TWIN -DELIVERED 01/26/2015 IRASEMAECH JENNIFER GRAHAM Ot 652.21 BREECH PRESENTAT-DELIVER 01/26/2015 IRASEMAECH JENNIFER GRAHAM Ot 652.31 TRANSVER/OBLIQ LIE-DELIV 01/26/2015 IRASEMAECH JENNIFER GRAHAM Ot 657.01 POLYHYDRAMNIOS,DEL W OR W/O MENTN ANTEPA 01/26/2015 IRASEMAECH JENNIFER GRAHAM Ot V06.1 ENVGFONWPF-KXGALOE-HQMMGTGFO, COMBINED [ 01/26/2015 JENNIFER POZO DO Ot V27.2 DELIVER-TWINS, BOTH LIVE 01/26/2015 NOHELIA GRAHAM, JENNIFER Caraballo Ot V91.02 TWIN GEST, MONOCHORIONIC/DIAMNIOTIC-1 PL 02/05/2015 JENNIFER POZO DO Ot 651.03 02/05/2015 JENNIFER POZO DO Ot 652.23 02/05/2015 JENNIFER POZO DO Ot V91.09 06/30/2015 NELLY HELLER APRN Ot V22.0 06/30/2015 ANABELA BLACKBURN, WILMAN Steele Ot V22 .0 06/30/2015 ANGELIA REBOLLAR DO Ot 642.93 06/30/2015 ANGELIA REBOLLAR DO Ot 658.03 06/30/2015 ANGELIA REBOLLAR DO Ot V23.9 06/30/2015 Ot 644.03 06/30/2015 Ot 655.73 06/30/2015 NELLY HELLER APRN Ot 651.03 06/30/2015 NELLY HELLER APRN Ot V91.09 06/30/2015 [facility] JENNIFER Rashmi Ot 651.03 06/30/2015 [facility] JENNIFER Caraballo Ot 652.23 06/30/2015 [facility] JENNIFER Caraballo Ot V91.09 06/30/2015 NEGRO BLACKBURN, NOE Caraballo Ot F17.210 NICOTINE DEPENDENCE, CIGARETTES, UNCOMPL 06/30/2015 NEGRO BLACKBURN, NOE Caraballo Ot N91. 2 AMENORRHEA, UNSPECIFIED 09/06/2015 NELLY HELLER APRN Ot V22.0 09/06/2015 ANABELA BLACKBURN, WILMAN Steele Ot V22 .0 09/06/2015 ANGELIA REBOLLAR DO Ot 642.93 09/06/2015 ANGELIA REBOLLAR DO Ot 658.03 09/06/2015 ANGELIA REBOLLAR DO Ot V23.9 09/06/2015 Ot 644.03 09/06/2015 Ot 655.73 09/06/2015 NELLY HELLER HOG ROOM SUPERVISOR Ot 651.03 09/06/2015 NELLY HELLER APRN Ot V91.09 09/06/2015 FENECH JENNIFER GRAHAM Ot 651.03 09/06/2015 NOHELIA GRAHAM JENNIFER Rashmi Ot 652.23 09/06/2015 NOHELIA GRAHAM JENNIFER Rashmi Ot V91.09 09/06/2015 YOUNG MCADAMS DO Ot F17.210 NICOTINE DEPENDENCE, CIGARETTES, UNCOMPL 09/06/2015 YOUNG MCADAMS DO Kortney Ot N20.0 CALCULUS OF KIDNEY 09/06/2015 YOUNG MCADAMS DO Ot N39.0 URINARY TRACT INFECTION, SITE NOT SPECIF 10/08/2015 JONATHAN BLACKBURN, TRISTAN Ordoñez Ot F17.210 NICOTINE DEPENDENCE, CIGARETTES, UNCOMPL 10/08/2015 JONATHAN BLACKBURN, TRISTAN Ordoñez Ot R11.2 NAUSEA WITH VOMITING, UNSPECIFIED 03/13/2016 NELLY HELLER HOG ROOM SUPERVISOR Ot V22.0 SUPERVIS NORMAL 1ST PREG 03/13/2016 WILMAN PEÑALOZA MD Ot V22 .0 SUPERVIS NORMAL 1ST PREG 03/13/2016 ANGELIA REBOLLAR DO Ot 642.93 HYPERTENS NOS-ANTEPARTUM 03/13/2016 ANGELIA REBOLLAR DO Ot 658.03 OLIGOHYDRAMNIOS-ANTEPAR 03/13/2016 ANGELIA REBOLLAR DO Ot V23.9 SUPRV HIGH-RISK PREG NOS 03/13/2016 Ot 644.03 THR T CAYDEN LABOR- ANTEPART 03/13/2016 Ot 655.73 DEC R MOVEMNT ANTEPARTUM CONDITION 03/13/2016 NELLY HELLER HOG ROOM SUPERVISOR Ot 651.03 TWIN -ANTEPART 03/13/2016 NELLY HELLER HOG ROOM SUPERVISOR Ot V91.09 TWIN GEST, UNABLE TO DETERMINE # OF PLAC 03/13/2016 NOHELIA GRAHAM JENNIFER Rashmi Ot 651.03 TWIN -ANTEPART 03/13/2016 NOHELIA GRAHAMJENNIFER Ot 652.23 BREECH PRESENT-ANTEPART 03/13/2016 IRASEMASUMAN GRAHAMJENNIFER Ot V91.09 TWIN GEST, UNABLE TO DETERMINE # OF PLAC 03/18/2016 NOHELIA GRAHAMJENNIFER Ot Z3 6 ENCOUNTER FOR SCREENING OF MOT 03/18/2016 IRASEMASUMAN GRAHAMJENNIFER Ot Z3A.19 19 WEEKS GESTATION OF 03/19/2016 JENNIFER POZO DO Ot Z3 6 ENCOUNTER FOR SCREENING OF MOT 03/19/2016 IRASEMAJENNIFER WILL DO Ot Z3A.19 19 WEEKS GESTATION OF 03/31/2016 IRASEMASUMAN JENNIFER GRAHAM Ot Z3 6 ENCOUNTER FOR SCREENING OF MOT 03/31/2016 JENNIFER POZO DO Ot Z3A.19 19 WEEKS GESTATION OF 07/15/2016 JENNIFER POZO DO Ot O34.211 MATERN CARE FOR LOW TRANSVERSE SCAR FROM 07/15/2016 JENNIFER POZO DO Ot Z01.818 ENCOUNTER FOR OTHER PREPROCEDURAL EXAMIN 07/15/2016 JENNIFER POZO DO Ot Z11.2 ENCOUNTER FOR SCREENING FOR OTHER BACTER 07/16/2016 JENNIFER POZO DO Ot O34.211 MATERN CARE FOR LOW TRANSVERSE SCAR FROM 07/16/2016 JENNIFER POZO DO Ot Z01.818 ENCOUNTER FOR OTHER PREPROCEDURAL EXAMIN 07/16/2016 JENNIFER POZO DO Ot Z11.2 ENCOUNTER FOR SCREENING FOR OTHER BACTER 07/24/2016 JENNIFER POZO DO Ot D6 2 ACUTE POSTHEMORRHAGIC ANEMIA 07/24/2016 JENNIFER POZO DO Ot O34.211 MATERN CARE FOR LOW TRANSVERSE SCAR FROM 07/24/2016 JENNIFER POZO DO Ot O69.81X0 LABOR AND DEL COMP BY CORD AROUND NECK, 07/24/2016 JENNIFER POZO DO Ot O90.81 ANEMIA OF THE PUERPERIUM 07/24/2016 JENNIFER POZO DO Ot Z2 3 ENCOUNTER FOR IMMUNIZATION 07/24/2016 JENNIFER POZO DO Ot Z37.0 SINGLE LIVE 07/24/2016 JENNIFER POZO DO Ot Z3A.39 39 WEEKS GESTATION OF 07/08/2017 JENNIFER POZO DO Ot Z36.87 ENCOUNTER FOR SCREENING FOR UN 07/08/2017 JENNIFER POZO DO Ot Z3A.20 20 WEEKS GESTATION OF 07/13/2017 JENNIFER POZO DO Ot Z36.87 ENCOUNTER FOR SCREENING FOR UN 07/13/2017 JENNIFER POZO DO Ot Z3A.20 20 WEEKS GESTATION OF 07/21/2017 JENNIFER POZO DO Ot Z36.87 ENCOUNTER FOR SCREENING FOR UN 07/21/2017 JENNIFER POZO DO Ot Z3A.20 20 WEEKS GESTATION OF 08/05/2017 JENNIFER POZO DO Ot O26.842 UTERINE SIZE-DATE DISCREPANCY, SECOND TR 08/05/2017 JENNIFER POZO DO Ot Z3A.20 20 WEEKS GESTATION OF 11/05/2017 NOHELIA GRAHAM JENNIFER Caraballo Ot D6 2 ACUTE POSTHEMORRHAGIC ANEMIA 11/05/2017 NOHELIA GRAHAM JENNIFER Rashmi Ot O14.04 MILD TO MODERATE PRE-ECLAMPSIA, COMPLICA 11/05/2017 NOHELIA GRAHAM JENNIFER Caraballo Ot O34.211 MATERN CARE FOR LOW TRANSVERSE SCAR FROM 11/05/2017 NOHELIA GRAHAM JENNIFER Rashmi Ot O69.2XX0 LABOR AND DEL COMP BY [facility] CORD ENTANGLE, 11/05/2017 NOHELIA GRAHAM JENNIFER Rashmi Ot O90.81 ANEMIA OF THE PUERPERIUM 11/05/2017 NOHELIA GRAHAM JENNIFER Caraballo Ot Z37.0 SINGLE LIVE 11/05/2017 NOHELIA GRAHAM JENNIFER Rashmi Ot Z3A.37 37 WEEKS GESTATION OF 11/05/2017 NOHELIA GRAHAM JENNIFER Rashmi Ot Z80.49 FAMILY HISTORY OF MALIGNANT NEOPLASM OF 04/21/2019 CHENCHO AGUIRRE APRN W 892 .0 OPEN WOUND OF FOOT EXCEPT TOE(S) ALONE, WITHOUT MENTION OF COMPLICATION 04/21/2019 CHENCHO AGUIRRE APRN W S91.311A LACERATION WITHOUT FOREIGN BODY, RIGHT FOOT, INIT ENCN TR 04/30/2019 Edilberto Izquierdo S91.311A LACERATION WITHOUT FOREIGN BODY, RIGHT FOOT, INIT ENCNTR 04/30/2019 Edilberto Izquierdo V58.32 ENCOUNTER FOR REMOVAL OF SUTURES 04/30/2019 Edilberto Izquierdo Z48.02 ENCOUNTER FOR REMOVAL OF SUTURES 11/24/2019 NELLY HELLER APRN Ot 651.03 TWIN -ANTEPART 11/24/2019 NELLY HELLER APRN Ot V91.09 TWIN GEST, UNABLE TO DETERMINE # OF PLAC 11/24/2019 NOHELIA GRAHAMJENNIFER Ot 651.03 TWIN -ANTEPART 11/24/2019 NOHELIA GRAHAMJENNIFER Ot 652.23 BREECH PRESENT-ANTEPART 11/24/2019 NOHELIA GRAHAMJENNIFER Ot V91.09 TWIN GEST, UNABLE TO DETERMINE # OF PLAC 11/24/2019 NOHELIA GRAHAMJENNIFER Ot Z3 6 ENCOUNTER FOR SCREENING OF MOT 11/24/2019 NOHELIA GRAHAMJENNIFER Ot Z3A.19 19 WEEKS GESTATION OF 11/24/2019 JENNIFER POZO DO Ot O26.842 UTERINE SIZE-DATE DISCREPANCY, SECOND TR 11/24/2019 JENNIFER POZO DO Ot Z3A.20 20 WEEKS GESTATION OF Procedures Code Description [place] [address] URIN E TEST (IN- HOUSE) 01/07/2013 00151 URIN E TEST (IN- HOUSE) 01/12/2013 58614 URIN E TEST (IN- HOUSE) 05/27/2013 94818 ROUT INE VENIPUNCTURE 06/27/2013 62893 ANTI BODY SCREEN (order) 06/27/2013 38236 US O B - EARLY <14 WEEKS 06/27/2013 68815 SYPH ILLIS-[facility] 06/27/2013 21197 HEP B SURFACE ANTIGEN ([facility]) 06/27/2013 41581 UA L JOSE ALEJANDRO DIP 06/27/2013 65494 CBC 06/27/2013 45951 TSH 06/27/2013 66605 HIV ANTIBODIES ([facility]) 06/28/2013 1156690 AN TIBODY SCREEN (RESULT ONLY) 06/28/2013 10902 BLOO D TYPE/Rh FACTOR 06/28/2013 98211 RUBE LLA ANTIBODY, IGG 06/28/2013 11523 CULT URE URINE 06/28/2013 34743 GC/C HLAM PROBE ([facility]) 07/25/2013 93666 UA OB DIP 07/25/2013 26907 TRIC HOMONAS (IN-HOUSE) 07/25/2013 44266 CULT URE UROGENITAL 07/26/2013 97033 TRIC HOMONAS (IN-HOUSE) 08/23/2013 68910 UA OB DIP 08/23/2013 34792 UA OB DIP 09/20/2013 16487 US O B - COMPLETE >14 WEEKS 09/20/2013 38922 A1C (IN-HOUSE) 09/20/2013 50205 UA OB DIP 10/18/2013 52834 ROUT INE VENIPUNCTURE 11/15/2013 52181 UA OB DIP 11/15/2013 98899 GLUC OSE MARIAJOSE 1 HOUR 11/15/2013 38805 US O B - FOLLOW UP 11/29/2013 30257 UA OB DIP 11/30/2013 75434 BIOP HYSICAL PROFILE () W/NST 11/30/2013 39760 CMP 11/30/2013 42017 LDH 11/30/2013 00576 URIN E PROTEIN 24 HOUR 11/30/2013 13806 URIC ACID 11/30/2013 48160 CBC 11/30/2013 PRO/CRE UR INE PROTEIN TO CREATNINE RATIO 11/30/2013 OBSTETRIC EMILIO DILLARD 12/01/2013 71097 UA OB DIP 12/07/2013 40880 US O B - FOLLOW UP 12/07/2013 34382 UA OB DIP 12/20/2013 60979 ROUT INE VENIPUNCTURE 01/03/2014 91952 UA OB DIP 01/03/2014 30472 CBC 01/03/2014 6750274 GF R CALC (RESULT ONLY) 01/03/2014 39854 CMP 01/03/2014 29713 LDH 01/03/2014 PRO/CRE UR INE PROTEIN TO CREATNINE RATIO 01/03/2014 68952 CULT URE GROUP B STREP VAG 01/05/2014 61065 UA OB DIP 01/09/2014 77311 UA OB DIP 01/17/2014 86657 FETA L NON-STRESS TEST 01/23/2014 44263 UA OB DIP 01/23/2014 73.59 01/25/2014 87151 PREG BURTON TEST, URINE (IN- HOUSE) 06/19/2014 39039 ROUT INE VENIPUNCTURE 07/18/2014 24771 US O B - EARLY <14 WEEKS 07/18/2014 89396 SYPH ILLIS[facility] 07/18/2014 14697 HIV ([facility]) 07/18/2014 59593 ANTI BODY SCREEN (order) 07/18/2014 12160 HEP B SURFACE ANTIGEN ([facility]) 07/18/2014 31589 UA L JOSE ALEJANDRO DIP 07/18/2014 23197 CBC 07/18/2014 78737 TSH 07/18/2014 1646763 AN TIBODY SCREEN (RESULT ONLY) 07/19/2014 20465 CULT URE URINE 07/21/2014 Obstetric Via 07/31/2014 74.1 LOW C ERVICAL 01/24/2015 99.77 APPL /ADMIN OF AN ADHESION BARRIER SUBSTA 01/24/2015 [id number] EX TRACTION OF POC, LOW CERVICAL, OPEN AP 07/22/2016 [id number] RE SECTION OF BILATERAL FALLOPIAN TUBES, 11/04/2017 [id number] EX TRACTION OF POC, LOW CERVICAL, OPEN AP 11/04/2017 Results Test Result Range Methicillin resistant Staphylococcus aur eus (MRSA) screening culture - 07/15/16 13:53 Methicillin resistant Staphylococcus aureus (MRSA) scr eening culture NEG NRG Complete blood count (CBC) with automate d white blood cell (WBC) differential - 07/22/16 06:15 Blood leukocytes automated count (number/volume) 10.0 10*3/uL 4.3-11.0 Blood erythrocytes automated count (number/volume) 3.88 10*6/uL 4.35-5.85 Venous blood hemoglobin measurement (mass/volume) 10.7 g/dL 11.5-16.0 Blood hematocrit (volume fraction) 32 % 35-52 Automated erythrocyte mean corpuscular volume 84 [ foz_us] 80-99 Automated erythrocyte mean corpuscular h emoglobin (mass per erythrocyte) 28 pg 25-34 Automated erythrocyte mean corpuscular h emoglobin concentration measurement (mass/volume) 33 g/dL 32-36 Automated erythrocyte distribution width ratio 13. 6 % 10.0- 14.5 Automated blood platelet count (count/volume) 247 10*3/uL [...] 10*3 1.0-4.0 Blood monocytes automated count (number/volume) 1. 0 10*3 0.0-1.0 Automated eosinophil count 0.2 10*3/uL 0 .0-0.3 Automated blood basophil count (count/volume) 0.0 10*3/uL 0.0-0.1 Blood type T Indirect antibody screen pa ela - 07/22/16 06:15 ABO+Rh group AP NRG Transfusion band number [id number] NRG Blood group antibody screen NEGATIVE NR G Complete blood count (CBC) with automate d white blood cell (WBC) differential - 07/23/16 05:38 Blood leukocytes automated count (number/volume) 10.4 10*3/uL 4.3-11.0 Blood erythrocytes automated count (number/volume) 3.46 10*6/uL 4.35-5.85 Venous blood hemoglobin measurement (mass/volume) 9.3 g/dL 11.5-16.0 Blood hematocrit (volume fraction) 29 % 35-52 Automated erythrocyte mean corpuscular volume 84 [ foz_us] 80-99 Automated erythrocyte mean corpuscular h emoglobin (mass per erythrocyte) 27 pg 25-34 Automated erythrocyte mean corpuscular h emoglobin concentration measurement (mass/volume) 32 g/dL 32-36 Automated erythrocyte distribution width ratio 13. 7 % 10.0- 14.5 Automated blood platelet count (count/volume) 193 10*3/uL [...] 10*3 1.0-4.0 Blood monocytes automated count (number/volume) 0. 9 10*3 0.0-1.0 Automated eosinophil count 0.3 10*3/uL 0 .0-0.3 Automated blood basophil count (count/volume) 0.0 10*3/uL 0.0-0.1 Blood type T Indirect antibody screen pa ela - 11/04/17 11:11 ABO+Rh group AP NRG Transfusion band number [id number] NR Blood group antibody screen NEGATIVE NR G Complete blood count (CBC) with automate d white blood cell (WBC) differential - 11/05/17 05:15 Blood leukocytes automated count (number/volume) 11.4 10*3/uL 4.3-11.0 Blood erythrocytes automated count (number/volume) 3.31 10*6/uL 4.35-5.85 Venous blood hemoglobin measurement (mass/volume) 9.5 g/dL 11.5-16.0 Blood hematocrit (volume fraction) 29 % 35-52 Automated erythrocyte mean corpuscular volume 86 [ foz_us] 80-99 Automated erythrocyte mean corpuscular h emoglobin (mass per erythrocyte) 29 pg 25-34 Automated erythrocyte mean corpuscular h emoglobin concentration measurement (mass/volume) 33 g/dL 32-36 Automated erythrocyte distribution width ratio 13. 2 % 10.0- 14.5 Automated blood platelet count (count/volume) 231 10*3/uL 130-400 Automated blood platelet mean volume measurement 8.4 [foz_us] 7.4-10.4 Automated blood neutrophils/100 leukocytes 65 % 42-75 Automated blood lymphocytes/100 leukocytes 23 % 12-44 Blood monocytes/100 leukocytes 11 % 0-12 Automated blood eosinophils/100 leukocytes 1 % 0-10 Automated blood basophils/100 leukocytes 0 % 0-10 Blood neutrophils automated count (number/volume) 7.4 10*3 1.8-7.8 Blood lymphocytes automated count (number/volume) 2.6 10*3 1.0-4.0 Blood monocytes automated count (number/volume) 1. 3 10*3 0.0-1.0 Automated eosinophil count 0.1 10*3/uL 0 .0-0.3 Automated blood basophil count (count/volume) 0.0 10*3/uL 0.0-0.1 CULTURE, URINE - 02/23/18 09:27 CULTURE, URINE, ROUTINE SEE NOTE NRG CULTURE, URINE - 01/10/19 08:17 CULTURE, URINE, ROUTINE SEE NOTE NRG HSV 1 and 2-Spec Ab, IgG w/Rfx - 9 08:09 HSV 1 IgG, Type Spec 50.70 index 0.00-0. 90 HSV 2 IgG, Type Spec 5.65 index 0.00-0.9 0 HSV 1/2 IGG,TYPE SPECIFIC AB HERPESELECT - 05/12/19 12:38 HSV 1 IGG, TYPE SPECIFIC AB 54.90 index NRG HSV 2 IGG, TYPE SPECIFIC AB 6.06 index N RG Encounters ACCT No. Visit Date/Time Discharge Status Pt. Type Provider Facility Loc./Unit Complaint [id number] 04/30/2019 13:26:00 04/30/2019 13:41: 00 DIS Outpatient Edilberto Izquierdo [id number] 04/28/2019 11:12:00 04/28/2019 11:29: 00 DIS Outpatient CHENCHO AGUIRRE APRN [id number] 04/21/2019 12:03:00 04/21/2019 13:21: 00 DIS Outpatient CHENCHO AGUIRRE APRN [id number] 04/21/2019 13:40:32 Document Registration [id number] 01/07/2019 12:20:00 01/07/2019 23:59:5 9 CLS Outpatient CAITLIN Ledesma [facility] [id number] 05/12/2019 11:00:00 Document Registration [id number] 01/07/2019 12:20:00 Document Registration [id number] 02/23/2018 08:40:00 Document Registration [id number] 11/04/2017 10:25:00 018 12:25:00 DIS Inpatient IRASEMASUMAN GRAHAM JENNIFER S [facility] LDRP REPEAT [id number] 07/07/2017 10:48:00 017 23:59:59 CLS Outpatient NOHELIA DO JENNIFER S [facility] RAD Z33.1 [id number] 07/22/2016 06:04:00 016 13:00:00 DIS Inpatient IRASEMASUMAN GRAHAM JENNIFER S [facility] WS PREVIOUS SECTION [id number] 07/15/2016 13:31:00 016 14:00:00 DIS Outpatient IRASEMASUMAN GRAHAM JENNIFER S [facility] PREOP PREVIOUS SECTION [id number] 03/13/2016 17:08:00 016 23:59:59 CLS Outpatient NOHELIA DO JENNIFER S [facility] RAD SURVEY [id number] 10/08/2015 03:54:00 016 04:43:00 DIS Emergency TRISTAN CASTILLO MD [facility] ER VOMITING [id number] 09/06/2015 19:15:00 016 21:56:00 DIS Emergency YOUNG MCADAMS DO [facility] ER R FLANK PAIN;NAUSEA; [id number] 06/30/2015 15:47:00 18:05:00 DIS Emergency NEGRO BLACKBURN, NOE Caraballo [facility] ER LACK OF MENSTRUAL PERIO D [id number] 01/24/2015 22:25:00 015 13:12:00 DIS Inpatient JENNIFER POZO DO [facility] LDRP C/O CONTRACTIONS [id number] 01/14/2015 13:11:00 23:59:59 CLS Outpatient JENNIFER POZO DO [facility] RAD DECREASED MOVEME NT [id number] 01/12/2015 10:05:00 13:35:00 DIS Outpatient JENNIFER POZO DO [facility] DEC MOVEMENT OF BABIES [id number] 01/12/2015 08:04:00 09:53:00 DIS Emergency BERNADINE BLACKBURN, MARY Gay [facility] ER CHEST PAIN/HEAV INESS SOA 33 WKS PREG [id number] 01/09/2015 10:10:00 18:30:00 DIS Outpatient JENNIFER POZO DO [facility] WSo N/V/D [id number] 12/21/2014 07:54:00 12:08:00 DIS Outpatient KHAN YONI GRAHAM [facility] WSo CONTRACTIONS [id number] 12/20/2014 12:52:00 15:40:00 DIS Outpatient YONI KHAN DO [facility] WSo CONTRACTIONS [id number] 12/09/2014 18:15:00 18:36:00 DIS Outpatient ELOISE JHAVERI MD [facility] WSo INJECTION [id number] 12/08/2014 17:00:00 015 05:36:00 DIS Outpatient JENNIFER POZO DO [facility] WSo CTXS [id number] 11/25/2014 21:54:00 23:10:00 DIS Outpatient FENECH JENNIFER GRAHAM S [facility] WSo LEAKING AMNIOTIC FLUID [id number] 07/28/2014 12:26:00 23:59:59 CLS Outpatient NELLY HELLER APRN [facility] RAD DATING [id number] 12/01/2013 15:13:00 014 00:01:00 DIS Outpatient WILMAN PEÑALOZA MD [facility] RAD [id number] 01/25/2014 17:00:00 18:15:00 DIS Inpatient REBOLLAR DO, ANGELIA Navarrete [facility] LDRP [id number] 01/25/2014 01:49:00 03:30:00 DIS Outpatient REBOLLAR DOANGELIA [facility] [id number] 01/17/2014 16:50:00 014 19:20:00 DIS Inpatient REBOLLAR DOANGELIA V [facility] [id number] 01/08/2014 12:33:00 014 13:12:00 DIS Outpatient REBOLLAR DOANGELIA [facility] [id number] 12/29/2013 14:36:00 23:59:59 CLS Outpatient REBOLLAR DO ANGELIA K [facility] RAD [id number] 12/26/2013 21:03:00 014 22:25:00 DIS Outpatient REBOLLAR DOANGELIA [facility] [id number] 12/01/2013 22:31:00 014 23:56:00 DIS Outpatient REBOLLAR DOANGELIA [facility] [id number] 11/29/2013 01:35:00 014 14:15:00 DIS Inpatient REBOLLAR DOANGELIA V [facility] [id number] 10/17/2013 14:32:00 014 14:52:00 DIS Outpatient REBOLLAR DOANGELIA [facility] [id number] 09/27/2013 13:27:00 014 23:59:59 CLS Outpatient ANABELA BLACKBURN, WILMAN Steele [facility] RAD [id number] 09/15/2013 23:25:00 014 00:08:00 DIS Emergency DAVID BLACKBURN, VICTORINA Albert [facility] ER [id number] 07/04/2013 14:00:00 013 23:59:59 CLS Outpatient NELLY HELLER APRN [facility] RAD [id number] 04/19/2013 22:54:00 013 14:00:00 DIS Outpatient FELIPE KATE DO Via [facility] ACUTE APPENDICITIS [id number] 11/24/2019 00:37:[address] Emergency SHAWNA BLACKBURN, FREYA Urbano Via [facility] ER RT ANKLE PAIN [id number] 03/01/2014 13:00:00 Document Registration [id number] 01/13/2019 06:05:00 Document Registration [id number] 07/18/2014 14:28:00 07/18/2014 23:59: 59 CLS Outpatient NELLY HELLER APRN [id number] 07/18/2014 14:28:00 07/18/2014 23:59: 59 CLS Outpatient NELLY HELLER APRN [id number] 06/19/2014 10:18:00 06/19/2014 23:59: 59 CLS Outpatient ANGELIA REBOLLAR DO [id number] 03/15/2014 16:54:00 03/15/2014 23:59: 59 CLS Outpatient PINANELLY TORRES APRN [id number] 03/02/2014 03:07:00 03/02/2014 23:59: 59 CLS Outpatient ANGELIA REBOLLAR DO [id number] 01/23/2014 09:38:00 01/23/2014 23:59: 59 CLS Outpatient ANGELIA REBOLLAR DO [id number] 01/23/2014 09:38:00 01/23/2014 23:59: 59 CLS Outpatient ANGELIA REBOLLAR DO [id number] 01/09/2014 11:16:00 01/09/2014 23:59: 59 CLS Outpatient ANGELIA REBOLLAR DO [id number] 01/03/2014 14:43:00 01/03/2014 23:59: 59 CLS Outpatient ANGELIA REBOLLAR DO Kortney [id number] 12/07/2013 15:59:00 12/07/2013 23:59: 59 CLS Outpatient WILMAN PEÑALOZA MD [id number] 12/07/2013 15:59:00 12/07/2013 23:59: 59 CLS Outpatient WILMAN PEÑALOZA MD [id number] 11/30/2013 10:29:00 11/30/2013 23:59: 59 CLS Outpatient WILMAN PEÑALOZA MD [id number] 11/15/2013 14:15:00 11/15/2013 23:59: 59 CLS Outpatient WILMAN PEÑALOZA MD [id number] 10/18/2013 14:23:00 10/18/2013 23:59: 59 CLS Outpatient WILMAN PEÑALOZA MD [id number] 09/20/2013 11:39:00 09/20/2013 23:59: 59 CLS Outpatient WILMAN PEÑALOZA MD [id number] 08/23/2013 11:17:00 08/23/2013 23:59: 59 CLS Outpatient WILMAN PEÑALOZA MD [id number] 07/25/2013 08:32:00 07/25/2013 23:59: 59 CLS Outpatient NELLY HELLER APRN [id number] 06/27/2013 10:54:00 06/27/2013 23:59: 59 CLS Outpatient NELLY HELLER APRN [id number] 05/27/2013 13:29:00 05/27/2013 23:59: 59 CLS Outpatient ANGELIA REBOLLAR DO Kortney [id number] 01/12/2013 16:22:00 Document Registration [id number] 01/07/2013 16:08:00 Document Registration
--- OUTSIDE RECORDS SUMMARY | 2019-11-24 00:54 | XMS REPORT ---
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 Role Phone AYLA EUBANK[place] Unavailable PROBLEMS Type Condition ICD9-CM Code TVS66-UQ Code Onset Dates Condition S tatus SNOMED Code Problem Irregular menstrual cycle N92.6 Acti ve 41187850 Problem Elevated blood pressure reading without diagnosi s of hypertension 796.2 Active 854169741 Problem Chronic gingivitis, plaque induced K05.10 Active 23486000 Problem Tobacco abuse Z72.0 Active 831807 05 Problem Constipation, unspecified constipation type K59.00 Active 43873569 Problem Lower abdominal pain R10.30 Active 65396756 Problem Anxiety F41.9 Active 47540120 Problem Fatigue, unspecified type R53.83 Acti ve [id number] ALLERGIES No Information ENCOUNTERS Encounter Location Date Diagnosis [facility] [address] [id number] [place] [id number] Oct, [facility] [address] [id number] [address] [place] [id number] Oct, Dental examination Z01.20 [facility] [address] [id number] [address] [place] [address] Oct, Dental examination Z01.20 an d Chronic gingivitis, plaque induced K05.10 [facility] [address] [id number] [address] [place] [address] Oct, Dental examination Z01.20 [facility] [address] [id number] [place] [id number] Jun, [facility] [address] [id number] [place] [id number] May, [facility] [address] [id number] [place] [id number] May, [facility] [place] [address] [id number] [place] [id number] Apr, [facility] [place] [address] [id number] [place] [id number] Apr, [facility] [place] [address] [id number] [place] [id number] Feb, Encounter for test, result unk nown Z32.00 [facility] [place] [address] [id number] [place] [id number] Feb, [facility] [place] [address] [id number] [place] [id number] Feb, [facility] [place] [address] [id number] [place] [id number] Feb, Encounter for test, result unk nown Z32.00 [facility] [place] [address] [id number] [place] [id number] Jan, [facility] [place] [address] [id number] [place] [id number] Jan, [facility] [place] [address] [id number] [place] [id number] Jan, [facility] [place] [address] [id number] [place] [id number] December, [facility] [place] [address] [id number] [place] [id number] December, [facility] [place] [address] [id number] [place] [id number] Nov, [facility] [place] [address] [id number] [place] [id number] Nov, [facility] [place] [address] [id number] [place] [id number] Nov, [facility] [place] [address] [id number] [place] [id number] Oct, [facility] [place] [address] [id number] [place] [id number] Oct, [facility] [place] [address] [id number] [place] [id number] Oct, [facility] [place] [address] [id number] [place] [id number] Oct, [facility] [place] [address] [id number] [place] [id number] Sep, [facility] [place] [address] [id number] [place] [id number] Sep, [facility] [place] [address] [id number] [place] [id number] Sep, [facility] [place] [address] [id number] [place] [id number] Sep, [facility] [place] [address] [id number] [place] [id number] Sep, [facility] [place] [address] [id number] [place] [id number] Aug, [facility] [place] [address] [id number] [place] [id number] Jul, [facility] [place] [address] [id number] [place] [id number] Jul, [facility] [place] [address] [id number] [place] [id number] Jun, [facility] [place] [address] [id number] [place] [id number] Jun, [facility] [place] [address] [id number] [place] [id number] Jun, [facility] [place] [address] [id number] [place] [id number] Jun, [facility] [place] [address] [id number] [place] [id number] Jun, [facility] [place] [address] [id number] [place] [id number] Jun, [facility] [place] [address] [id number] [place] [id number] May, [facility] [place] [address] [id number] [place] [id number] May, [facility] [place] [address] [id number] [place] [id number] May, [facility] [address] [address] Apr, Bronchitis J40 [facility] [place] [address] [id number] [place] [id number] Mar, [facility] [place] [address] [id number] [place] [id number] Feb, [facility] [place] [address] [id number] [place] [id number] Feb, [facility] [place] [address] [id number] [place] [id number] Feb, Sore throat J02.9 and Ear pain, right H9 2.01 [facility] [place] [address] [id number] [place] [id number] Jan, [facility] [place] [address] [id number] [place] [id number] Jan, Viral syndrome B34.9 ; Other seasonal al lergic rhinitis J30.2 and Post-nasal drip R09.82 [facility] [place] [address] [id number] [place] [id number] Jan, [facility] [place] [address] [id number] [place] [id number] Nov, [facility] [place] [address] [facility] [id number] [place] [id number] Oct, test positive Z32.01 [facility] [id number] [place] [address] Oct, [facility] [address] [id number] [address] [place] [address] Oct, [facility] [address] [id number] [address] [place] [address] Sep, Kidney stones N20.0 [facility] [address] [id number] [address] [place] [address] Sep, [facility] [address] [id number] [address] [place] [address] 11 Sep, 2015 Pelvic pain R10.2 ; Left low er quadrant pain R10.32 ; Vaginal discharge N89.8 ; Routine screening for STI (sexually transmitted infection) Z11.3 ; Unprotected sexual intercourse Z72.51 ; Kidney stone N20.0 ; History of dyspareunia in female Z87.42 and Screening for malignant neoplasm of cervix Z12.4 [facility] [address] [id number] [address] [place] [address] Jun, Constipation, unspecified co nstipation type K59.00 ; Lower abdominal pain R10.30 ; Irregular menstrual cycle N92.6 ; Anxiety F41.9 ; Fatigue, unspecified type R53.83 and Tobacco abuse Z72.0 [facility] [place] [address] [id number] [place] [id number] Jun, [facility] [place] [address] [id number] [place] [id number] Jun, Nausea R11.0 [facility] [place] [address] [id number] [place] [id number] May, Alopecia L65.9 [facility] [place] [address] [id number] [place] [id number] May, [facility] [place] [address] [id number] [place] [id number] Apr, [facility] [place] [address] [id number] [place] [id number] Mar, [facility] [place] [address] [id number] [place] [id number] Mar, [facility] [place] [address] [id number] [place] [id number] Mar, [facility] [address] [id number] [address] [place] [address] Mar, test negative V72. 41 [facility] [place] [address] [id number] [place] [id number] Mar, [facility] [place] [address] [id number] [place] [id number] Mar, [facility] [place] [address] [id number] [place] [id number] Feb, [facility] [place] [address] [id number] [place] [id number] Feb, [facility] [place] [address] [id number] [place] [id number] Feb, [facility] [place] [address] [id number] [place] [id number] Feb, [facility] [place] [address] [id number] [place] [id number] Feb, [facility] [place] [address] [id number] [place] [id number] Feb, [facility] [place] [address] [id number] [place] [id number] Feb, [facility] [place] [address] [id number] [place] [id number] Feb, [facility] [place] [address] [id number] [place] [id number] Feb, [facility] [place] [address] [id number] [place] [id number] Feb, [facility] [place] [address] [id number] [place] [id number] Feb, [facility] [place] [address] [id number] [place] [id number] Feb, [facility] [place] [address] [id number] [place] [id number] Jan, [facility] [place] [address] [id number] [place] [id number] Jan, [facility] [place] [address] [id number] [place] [id number] Jan, [facility] [address] [facility] [address] [id number] [place] [id number] Jan, Dental examination V72.2 [facility] [place] [address] [id number] [place] [id number] Jan, [facility] [place] [address] [id number] [place] [id number] Jan, [facility] [place] [address] [id number] [place] [id number] Jan, [facility] [place] [address] [id number] [place] [id number] Jan, [facility] [place] [address] [id number] [place] [id number] Jan, [facility] [place] [address] [id number] [place] [id number] Jan, [facility] [place] [address] [id number] [place] [id number] Jan, [facility] [place] [address] [id number] [place] [id number] Jan, [facility] [place] [address] [id number] [place] [id number] Jan, [facility] [place] [address] [id number] [place] [id number] Jan, [facility] [place] [address] [id number] [place] [id number] Jan, [facility] [place] [address] [id number] [place] [id number] Jan, [facility] [place] [address] [id number] [place] [id number] Jan, [facility] [place] [address] [id number] [place] [id number] Jan, [facility] [place] [address] [id number] [place] [id number] Jan, [facility] [place] [address] [id number] [place] [id number] Jan, [facility] [place] [address] [id number] [place] [id number] Jan, [facility] [place] [address] [id number] [place] [id number] Jan, [facility] [place] [address] [id number] [place] [id number] Jan, [facility] [place] [address] [id number] [place] [id number] Jan, [facility] [place] [address] [id number] [place] [id number] Jan, [facility] [place] [address] [id number] [place] [id number] Jan, [facility] [place] [address] [id number] [place] [id number] Jan, [facility] [place] [address] [id number] [place] [id number] Jan, [facility] [place] [address] [id number] [place] [id number] December, [facility] [place] [address] [id number] [place] [id number] December, [facility] [place] [address] [id number] [place] [id number] December, [facility] [place] [address] [id number] [place] [id number] December, [facility] [place] [address] [id number] [place] [id number] December, [facility] [place] [address] [id number] [place] [id number] December, [facility] [place] [address] [id number] [place] [id number] December, [facility] [place] [address] [id number] [place] [id number] December, [facility] [place] [address] [id number] [place] [id number] December, [facility] [place] [address] [id number] [place] [id number] December, [facility] [place] [address] [id number] [place] [id number] December, [facility] [place] [address] [id number] [place] [id number] December, [facility] [place] [address] [id number] [place] [id number] December, [facility] [place] [address] [id number] [place] [id number] December, [facility] [place] [address] [id number] [place] [id number] Nov, [facility] [place] [address] [id number] [place] [id number] Nov, [facility] [place] [address] [id number] [place] [id number] Nov, [facility] [place] [address] [id number] [place] [id number] Nov, [facility] [address] [id number] [address] [place] [address] Nov, [facility] [address] [facility] [id number] [address] [place] [address] Nov, [facility] [address] [facility] [id number] [address] [place] [address] Sep, [facility] [address] [facility] [id number] [address] [place] [address] Sep, [facility] [address] [facility] [id number] [address] [place] [address] Jul, [facility] [address] [facility] [id number] [address] [place] [address] Jul, [facility] [address] [facility] [id number] [address] [place] [address] Jul, [facility] [address] [facility] [id number] [address] [place] [address] Jul, [facility] [address] [facility] [id number] [address] [place] [address] Jul, [facility] [address] [facility] [id number] [address] [place] [address] Jul, [facility] [address] [id number] [address] [place] [address] Jun, [facility] [address] [id number] [address] [place] [address], [place] [address] Jun, [facility] [address] [id number] [address] [place] [address], [place] [address] Jun, [facility] [address] [id number] [address] [place] [address], [place] [address] Jun, [facility] [address] [id number] [address] [place] [address], [place] [address] May, [facility] [address] [id number] [address] [place] [address], [place] [address] May, [facility] [address] [id number] [address] [place] [address], [place] [address] Feb, [facility] [address] [id number] [address] [place] [address], [place] [address] Feb, [facility] [address] [id number] [address] [place] [address], [place] [address] Feb, [facility] [address] [id number] [address] [place] [address], [place] [address] Feb, [facility] [address] [id number] [address] [place] [address], [place] [address] Jan, [facility] [address] [id number] [address] [place] [address], [place] [address] Jan, [facility] [address] [id number] [address] [place] [address], [place] [address] Jan, [facility] [address] [id number] [address] [place] [address], [place] [address] Jan, [facility] [address] [id number] [address] [place] [address], [place] [address] December, [facility] [address] [id number] [address] [place] [address], [place] [address] December, [facility] [address] [id number] [address] [place] [address], [place] [address] December, [facility] [address] [id number] [facility] [place] [address] December, [facility] [address] [id number] [address] [place] [address], [place] [address] December, [facility] [address] [id number] [address] [place] [address], [place] [address] December, [facility] [address] [id number] [address] [place] [address], [place] [address] December, [facility] [address] [id number] [address] [place] [address], [place] [address] December, [facility] [address] [id number] [address] [place] [address], [place] [address] December, [facility] [address] [id number] [address] [place] [address], [place] [address] December, [facility] [address] [id number] [address] [place] [address], [place] [address] December, [facility] [address] [id number] [address] [place] [address], [place] [address] December, [facility] [address] [id number] [address] [place] [address], [place] [address] December, [facility] [address] [id number] [address] [place] [address], [place] [address] December, [facility] [address] [id number] [address] [place] [address], [place] [address] December, [facility] [address] [id number] [address] [place] [address], [place] [address] December, [facility] [address] [id number] [address] [place] [address], [place] [address] December, [facility] [address] [id number] [address] [place] [address], [place] [address] Nov, [facility] [address] [id number] [facility] [place] [address] Nov, [facility] [address] [id number] [address] [place] [address], [place] [address] Nov, [facility] [address] [id number] [address] [place] [address], [place] [address] Nov, [facility] [address] [id number] [address] [place] [address], [place] [address] Nov, [facility] [address] [id number] [address] [place] [address], [place] [address] Nov, [facility] [address] [id number] [address] [place] [address], [place] [address] Nov, [facility] [address] [id number] [address] [place] [address], [place] [address] Nov, [facility] [address] [id number] [address] [place] [address], [place] [address] Nov, [facility] [address] [id number] [address] [place] [address], [place] [address] Nov, [facility] [address] [id number] [address] [place] [address], [place] [address] Nov, [facility] [address] [id number] [address] [place] [address], [place] [address] Nov, [facility] [address] [id number] [address] [place] [address], [place] [address] Nov, [facility] [address] [id number] [address] [place] [address], [place] [address] Nov, [facility] [address] [id number] [address] [place] [address], [place] [address] Nov, [facility] [address] [id number] [address] [place] [address], [place] [address] Nov, [facility] [address] [id number] [address] [place] [address], [place] [address] Oct, [facility] [address] [id number] [facility] [place] [address] Oct, [facility] [address] [id number] [facility] [place] [address] Oct, [facility] [address] [id number] [facility] [place] [address] Oct, [facility] [address] [id number] [address] [place] [address], [place] [address] Oct, [facility] [address] [id number] [address] [place] [address], [place] [address] Oct, [facility] [address] [id number] [address] [place] [address], [place] [address] Oct, [facility] [address] [id number] [address] [place] [address], [place] [address] Oct, [facility] [address] [id number] [address] [place] [address], [place] [address] Sep, [facility] [address] [id number] [address] [place] [address], [place] [address] Sep, [facility] [address] [id number] [address] [place] [address], [place] [address] Sep, [facility] [address] [id number] [address] [place] [address], [place] [address] Sep, [facility] [address] [id number] [address] [place] [address], [place] [address] Sep, [facility] [address] [id number] [address] [place] [address], [place] [address] Sep, [facility] [address] [id number] [address] [place] [address], [place] [address] Sep, [facility] [address] [id number] [address] [place] [address], [place] [address] Sep, [facility] [address] [id number] [address] [place] [address], [place] [address] Sep, [facility] [address] [id number] [address] [place] [address], [place] [address] Sep, [facility] [address] [id number] [address] [place] [address], [place] [address] Aug, [facility] [address] [id number] [address] [place] [address], [place] [address] Aug, [facility] [address] [id number] [address] [place] [address], [place] [address] Jul, [facility] [address] [id number] [address] [place] [address], [place] [address] Jul, [facility] [address] [id number] [address] [place] [address], [place] [address] Jul, [facility] [address] [id number] [address] [place] [address], [place] [address] Jul, [facility] [address] [id number] [address] [place] [address], [place] [address] Jul, [facility] [address] [id number] [address] [place] [address], [place] [address] Jul, [facility] [address] [id number] [address] [place] [address], [place] [address] Jun, [facility] [address] [id number] [address] [place] [address] Jun, [facility] [address] [id number] [address] [place] [address], [place] [address] Jun, [facility] [address] [id number] [address] [place] [address], [place] [address] May, [facility] [address] [id number] [address] [place] [address], [place] [address] December, [facility] [address] [id number] [address] [place] [address] December, [facility] [address] [id number] [address] [place] [address] Jan, [facility] [address] [id number] [address] [place] [address] Jan, [facility] [address] [id number] [address] [place] [address] Jan, [facility] [address] [id number] [address] [place] [address] Jan, [facility] [address] [id number] [address] [place] [address] December, [facility] [address] [id number] [place] [id number] December, [facility] [address] [facility] [id number] [address] [place] [address] December, [facility] [address] [id number] [address] [place] [address] December, [facility] [address] [facility] [id number] [address] [place] [address] December, [facility] [address] [id number] [address] [place] [address] Oct, [facility] [address] [facility] [id number] [address] [place] [address] Jul, [facility] [address] [id number] [address] [place], [place] [id number] Jul, [facility] [address] [id number] [address] [place] [id number] Jun, IMMUNIZATIONS No Known Immunizations SOCIAL HISTORY [...]
== END 2019-11-24 00:56 | disposition home or self-care (01) ==
LOC: EDUNIT# 00:32 → ER 00:37
DX: S93.401A Sprain of unspecified ligament of right ankle, initial encounter (principal); F17.210 Nicotine dependence, cigarettes, uncomplicated; K21.9 Gastro-esophageal reflux disease without esophagitis; K59.09 Other constipation; X50.9XXA Other and unspecified overexertion or strenuous movements or postures, initial encounter; Y92.009 Unspecified place in unspecified non-institutional (private) residence as the place of occurrence of the external cause
CPT/HCPCS: 99283

== ENCOUNTER 2020-01-31 20:58 | Emergency (ER) | payer MEDICAID ==
[~2020-01-31] VITALS: Ht 167 cm; Wt 78.0 kg
[~2020-01-31 20:58] MED LIST changes: +ESCI10TA55; +SERT100T8
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
[2020-01-31 21:10] VITALS: BP 151/83
== END 2020-01-31 21:11 | disposition home or self-care (01) ==
LOC: EDUNIT# 20:58 → ER 20:59
DX: S81.811A Laceration without foreign body, right lower leg, initial encounter (principal); W22.8XXA Striking against or struck by other objects, initial encounter; Y93.11 Activity, swimming
CPT/HCPCS: 99282

== ENCOUNTER 2021-08-01 16:14 | Emergency (ER) | payer MEDICAID ==
[~2021-08-01] VITALS: Ht 160 cm; Wt 84.8 kg
[~2021-08-01 16:14] MED LIST changes: +ESCI-2; -ESCI10TA55; +SERT-414; -SERT100T8
--- NOTE | 2021-08-01 16:53 | ED Abdominal Pain ---
General Chief Complaint: Abdominal/GI Problems Stated Complaint: ABDOMINAL PAIN, LOWER BACK PAIN Nursing Triage Note: PT AMB TO RM 6 WITH COMPLAINT OF BACK PAIN, BURNING/FREQUENCY ON URINATION, NAUSEA, DIARRHEA. STATES STARTED THIS MORNING. Source of Information: Patient Exam Limitations: No Limitations (FELICITA FERREIRA STUDENT) History of Present Illness Date Seen by Provider: Aug 01, 2021 Time Seen by Provider: 16:30 Initial Comments Vilma is a 25 yo F who presents to the ED today via private conveyance for complaint of flank pain. Pt states that since this morning she has had back in her lower back and flanks with associated nausea, diarrhea, sensation of not fulling emptying when urinating, body aches, and chills. Pain worsens with movement and taking a deep breath. Pt states she has had a kidney stone in the past but does not remember what it felt like. Denies any chest pain, lower extremity weakness, recent trauma, or lower extremity weakness/numbness. Timing/Duration: 12 Hours Severity/Quality: Moderate Location: Flank Radiation: No Radiation Activities at Onset: None Modifying Factors: Improves With Breathing, Improves With Movement Associated Symptoms: Back Pain, Fever/Chills, Nausea/Vomiting (FELICITA FERREIRA STUDENT) Allergies and Home Medications Allergies Coded Allergies: No Known Drug Allergies (Unverified , 04/19/13) Patient Home Medication List Home Medication List Reviewed: Yes (FREYA MATOS) Naproxen (Naprosyn) 500 Mg Tablet, 500 MG PO BID Prescribed by: FREYA MATOS on 08/01/211822 Ondansetron (Ondansetron Odt) 4 Mg Tab.rapdis, 4 MG PO Q6H PRN for NAUSEA/VOMITING Prescribed by: FREYA MATOS on 08/01/211822 Sertraline HCl (Sertraline HCl) 100 Mg Tablet, (Reported) Entered as Reported by: SHAVONNE RIVAS on 11/24/19 0049 Review of Systems Review of Systems Constitutional: chills, weakness EENTM: No Blurred Vision, No Double Vision Respiratory: Denies Cough; Other (pain with deep inspiration ) Cardiovascular: Denies Chest Pain, Denies Palpitations Gastrointestinal: Denies Abdomen Distended, Denies Abdominal Pain; Diarrhea, Nausea, Poor Appetite Genitourinary: Denies Burning, Denies Discharge; Other (incomplete empyting ) Musculoskeletal: back pain Skin: No change in color, No change in hair/nails Psychiatric/Neurological: Denies Anxiety, Denies Depressed Endocrine: Denies Excessive Sweating, Denies Flushing (FELICITA FERREIRA [employer]) Past Dddmenq-Gggpox-Kcmsyq Hx Patient Social History Tobacco Use?: Yes Tobacco type used: Cigarettes Smoking Status: Current Everyday Smoker Use of E-Cig and/or Vaping dev: No Substance use?: No Alcohol Use?: No Pt feels they are or have been: No (FELICITA FERREIRA [employer]) Use of E-Cig and/or Vaping dev: No Substance use?: No (FREYA MATOS) Immunizations Up To Date Tetanus Booster (TDap): Unknown PED Vaccines UTD: No Influenza Vaccine Up-to-Date: No; Not Current (FELICITA FERREIRA [employer] AKOSUA) Seasonal Allergies Seasonal Allergies: No (HANNAFELICITA CHARLES [employer] AKOSUA) Past Medical History Surgeries: Yes (WISDOM TEETH, X 3) Appendectomy, Section Respiratory: No Cardiac: No Neurological: No Reproductive Disorders: No Female Reproductive Disorders: Denies Sexually Transmitted Disease: No HIV/AIDS: No Genitourinary: Yes Bladder Infection Gastrointestinal: Yes Gastroesophageal Reflux, Chronic Constipation Musculoskeletal: No Endocrine: No HEENT: No Cancer: No Psychosocial: Yes Anxiety Integumentary: No Blood Disorders: No Adverse Reaction/Blood Tranf: No (FELICITA FERREIRA [employer]) Family Medical History Adopted No Pertinent Family Hx (HANNAFELICITA CHARLES [employer]) Physical Exam Vital Signs Vital Signs - First Documented 08/01/21 16:26 Temp 37.2 Pulse 90 Resp 20 B/P (MAP) 155/91 (112) Pulse Ox 98 O2 Delivery Room Air (FREYA MATOS) Vital Signs Capillary Refill : Less Than 3 Seconds (HANNAFELICITA [employer]) Height/Weight/BMI Height: 5'3.00" Weight: 197lbs. 8.0oz. 89.637279gm; 33.00 BMI Method:Stated General Appearance: WD/WN, no apparent distress HEENT: PERRL/EOMI, normal ENT inspection Neck: non-tender, full range of motion, supple, normal inspection Respiratory: chest non-tender, lungs clear, normal breath sounds, no respiratory distress, no accessory muscle use Cardiovascular: regular rate, rhythm, no edema, no gallop, no JVD, no murmur Peripheral Pulses: 2+ Dorsalis Pedis (R), 2+ Left Dors-Pedis (L), 2+ Radial Pulses (R), 2+ Radial Pulses (L) Gastrointestinal: normal bowel sounds, non tender, soft, no organomegaly, no pulsatile mass Extremities: normal range of motion, non-tender, normal inspection, no pedal edema, no calf tenderness, normal capillary refill Back: CVA tenderness (R), CVA tenderness (L); No vertebral tenderness Neurologic/Psychiatric: no motor/sensory deficits, alert, normal mood/affect, oriented x 3 Skin: normal color, warm/dry (FELICITA FERREIRA MED STUDENT) Progress/Results/Core Measures Results/Orders Lab Results Laboratory Tests Test 08/01/21 16:35 08/01/21 16:58 Range/Units White Blood Count 6.7 4.3-11.0 10^3/uL Red Blood Count 4.61 3.80-5.11 10^6/uL Hemoglobin 12.7 11.5-16.0 g/dL Hematocrit 39 35-52 % Mean Corpuscular Volume 84 80-99 fL Mean Corpuscular Hemoglobin 28 25-34 pg Mean Corpuscular Hemoglobin Concent 33 32-36 g/dL Red Cell Distribution Width 13.8 10.0-14.5 % Platelet Count 267 130-400 10^3/uL Mean Platelet Volume 9.7 9.0-12.2 fL Immature Granulocyte % (Auto) 0 % Neutrophils (%) (Auto) 80 H 42-75 % Lymphocytes (%) (Auto) 11 L 12-44 % Monocytes (%) (Auto) 7 0-12 % Eosinophils (%) (Auto) 1 0-10 % Basophils (%) (Auto) 0 0-10 % Neutrophils # (Auto) 5.4 1.8-7.8 10^3/uL Lymphocytes # (Auto) 0.8 L 1.0-4.0 10^3/uL Monocytes # (Auto) 0.5 0.0-1.0 10^3/uL Eosinophils # (Auto) 0.1 0.0-0.3 10^3/uL Basophils # (Auto) 0.0 0.0-0.1 10^3/uL Immature Granulocyte # (Auto) 0.0 0.0-0.1 10^3/uL Sodium Level 137 135-145 MMOL/L Potassium Level 3.9 3.6-5.0 MMOL/L Chloride Level 104 98-107 MMOL/L Carbon Dioxide Level 20 L 21-32 MMOL/L Anion Gap 13 5-14 MMOL/L Blood Urea Nitrogen 12 7-18 MG/DL Creatinine 0.72 0.60-1.30 MG/DL Estimat Glomerular Filtration Rate 97 BUN/Creatinine Ratio 17 Glucose Level 98 70-105 MG/DL Calcium Level 9.0 8.5-10.1 MG/DL Corrected Calcium 8.8 8.5-10.1 MG/DL Total Bilirubin 0.4 0.1-1.0 MG/DL Aspartate Amino Transf (AST/SGOT) 17 5-34 U/L Alanine Aminotransferase (ALT/SGPT) 27 0-55 U/L Alkaline Phosphatase 70 40-136 U/L C-Reactive Protein High Sensitivity 0.56 H 0.00-0.50 MG/DL Total Protein 7.3 6.4-8.2 GM/DL Albumin 4.2 3.2-4.5 GM/DL Urine Color YELLOW Urine Clarity CLEAR Urine pH 6.0 5-9 Urine Specific [place] >=1.030 1.016-1.022 Urine Protein NEGATIVE NEGATIVE Urine Glucose (UA) NEGATIVE NEGATIVE Urine Ketones NEGATIVE NEGATIVE Urine Nitrite NEGATIVE NEGATIVE Urine Bilirubin NEGATIVE NEGATIVE Urine Urobilinogen 0.2 < = 1.0 MG/DL Urine Leukocyte Esterase NEGATIVE NEGATIVE Urine RBC (Auto) NEGATIVE NEGATIVE Urine RBC NONE /HPF Urine WBC 0-2 /HPF Urine Squamous Epithelial Cells 5-10 /HPF Urine Crystals NONE /LPF Urine Bacteria FEW H /HPF Urine Casts NONE /LPF Urine Mucus SMALL H /LPF Urine Culture Indicated YES (FREYA MATOS) My Orders Orders - FREYA MATOS Ua Culture If Indicated (08/01/21 16:16) Urine Bedside (08/01/21 16:16) Ketorolac Injection (Toradol Injection) (08/01/21 17:15) Cbc With Automated Diff (08/01/21 17:07) Comprehensive Metabolic Panel (08/01/21 17:07) Hs C Reactive Protein (08/01/21 17:07) Ed Iv/Invasive Line Start (08/01/21 17:07) Ns Iv 1000 Ml (Sodium Chloride 0.9%) (08/01/21 17:15) Urine Culture (08/01/21 16:58) (FREYA MATOS) Medications Given in ED Current Medications Medications Dose Ordered Sig/Pedro Route Start Time Stop Time Status Last Admin Dose Admin Ketorolac Tromethamine 30 mg ONCE ONCE IVP 08/01/21 17:15 08/01/21 17:16 DC 08/01/21 17:40 30 MG (FREAY MATOS) Vital Signs/I&O 08/01/21 08/01/21 16:26 18:30 Temp 37.2 Pulse 90 86 Resp 20 20 B/P (MAP) 155/91 (112) 138/88 Pulse Ox 98 98 O2 Delivery Room Air Room Air (FREYA MATOS) Blood Pressure Mean: 112 Progress Progress Note #1: Time: 17:06 Progress Note I attest that I saw this patient alongside the medical student and agree with his documented history, physical exam and review of systems except as otherwise noted. Toradol, a liter of LR, basic labs and urinalysis. Suspect she has UTI, possi pascale a viral infection. We will swab for Covid and influenza. Zofran for nausea Progress Note #2: Time: 18:01 Progress Note Nausea is gone. Pains only marginal improvement. Plan to put her on naproxen for her pleuritic pain for her likely viral syndrome, Zofran and a note off for work (FREYA MATOS) Departure Impression Primary Impression: Gastroenteritis and colitis, viral Additional Impressions: Viral syndrome Headache Qualified Codes: G44.209 - Tension-type headache, unspecified, not intractable Disposition: 01 HOME, SELF-CARE Condition: Stable Departure-Patient Inst. Decision time for Depature: 18:02 (FREYA MATOS) Referrals: NO,LOCAL PHYSICIAN (PCP/Family) Primary Care Physician Patient Instructions: Viral Gastroenteritis, Adult (DC) Add. Discharge Instructions: Zofran 1 tablet under the tongue every 6 hours as necessary for nausea or vomiting. Tylenol 1000 mg every 8 hours necessary for pain. Tums, Rolaids, Maalox, Mylanta etc. as necessary for pain. Naproxen 500 mg twice a day for the next 1 to 2 weeks until your chest wall pain improves. Imodium 2 tablets followed by 1 tablet every 4 hours afterwards if you are still having loose, watery stools. Drink lots of fluids. Brat diet, bananas, rice, applesauce toast. All discharge instructions reviewed with patient and/or family. Voiced understanding. Scripts Naproxen (Naprosyn) 500 Mg Tablet 500 MG PO BID for 14 Days, #30 TAB 0 Refills Prov: FREYA MATOS 08/01/21 Ondansetron (Ondansetron Odt) 4 Mg Tab.rapdis 4 MG PO Q6H PRN for NAUSEA/VOMITING, #8 TAB 0 Refills Prov: FREYA MATOS 08/01/21 Work/School Note: Work Release Form Date Seen in the Emergency Department: Aug 01, 2021 Return to Work: Aug 03, 2021 Restrictions: No Restrictions FELICITA FERREIRA MED STUDENT Aug 01, 2021 16:53 FREYA MATOS Aug 01, 2021 17:07
[2021-08-01 17:08] LABS: BILIRUBIN,URINE NEGATIVE (NEGATIVE); CLARITY,URINE CLEAR; COLOR,URINE YELLOW; GLUCOSE, URINE (UA) NEGATIVE (NEGATIVE); KETONES,URINE NEGATIVE (NEGATIVE); LEUKOCYTE ESTERASE ,URINE NEGATIVE (NEGATIVE); NITRITE,URINE NEGATIVE (NEGATIVE); PROTEIN,URINE NEGATIVE (NEGATIVE)
[2021-08-01 17:14] LABS: BASOPHILS % (AUTO) 0 % (0-10); EOSINOPHILS # (AUTO) 0.1 10^3/uL (0.0-0.3); EOSINOPHILS % (AUTO) 1 % (0-10); HEMATOCRIT 39 % (35-52); HEMOGLOBIN 12.7 g/dL (11.5-16.0); LYMPHOCYTES # (AUTO) 0.8 10^3/uL (1.0-4.0); LYMPHOCYTES % (AUTO) 11 % (12-44); MEAN CORPUSCULAR HEMOGLOBIN 28 pg (25-34); MEAN CORPUSCULAR HGB CONC 33 g/dL (32-36); MEAN CORPUSCULAR VOLUME 84 fL (80-99); MEAN PLATELET VOLUME 9.7 fL (9.0-12.2); MONOCYTES # (AUTO) 0.5 10^3/uL (0.0-1.0); MONOCYTES % (AUTO) 7 % (0-12); NEUTROPHILS # (AUTO) 5.4 10^3/uL (1.8-7.8); NEUTROPHILS % (AUTO) 80 % (42-75); PLATELET COUNT 267 10^3/uL (130-400); WHITE BLOOD COUNT 6.7 10^3/uL (4.3-11.0)
[2021-08-01] MEDS ORDERED: KETOROLAC 30 MG/ML VIAL IVP ONE (17:15)
[2021-08-01] MEDS ORDERED: NS IV 1000 ML 1,000 ML IV SCH (17:15)
[2021-08-01 17:16] LABS: ALBUMIN 4.2 GM/DL (3.2-4.5)
[2021-08-01 17:17] LABS: POTASSIUM 3.9 MMOL/L (3.6-5.0)
[2021-08-01 17:19] LABS: TOTAL PROTEIN 7.3 GM/DL (6.4-8.2)
[2021-08-01 17:21] LABS: BILIRUBIN,TOTAL 0.4 MG/DL (0.1-1.0)
[2021-08-01 17:23] LABS: CREATININE SERUM 0.72 MG/DL (0.60-1.30)
[2021-08-01 17:34] LABS: BACTERIA,URINE FEW /HPF; WBC,URINE 0-2 /HPF
[2021-08-01] MEDS ORDERED: ONDA4TAB11 PO (18:23)
[2021-08-01] MEDS ORDERED: NAPR-1071 PO (18:23)
[2021-08-01 18:30] VITALS: BP 138/88
== END 2021-08-01 18:32 | disposition home or self-care (01) ==
LOC: EDUNIT# 16:14 → ER 16:16
DX: K52.9 Noninfective gastroenteritis and colitis, unspecified (principal); B34.9 Viral infection, unspecified; R51.9 Headache, unspecified; F41.9 Anxiety disorder, unspecified; F17.210 Nicotine dependence, cigarettes, uncomplicated; Z79.899 Other long term (current) drug therapy
CPT/HCPCS: 36415; 80053; 81000; 84703; 85025; 86141; 87077; 87088

== ENCOUNTER 2021-09-21 09:22 | Emergency (ER) | payer MEDICAID ==
[~2021-09-21] VITALS: Ht 160 cm; Wt 84.0 kg
[~2021-09-21 09:22] MED LIST changes: +NAPR-1071 PO
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
[2021-09-21] MEDS ORDERED: CYCL10TA25 PO (10:28)
[2021-09-21] MEDS ORDERED: KETOROLAC 30 MG/ML VIAL IM ONE (10:30)
[2021-09-21] MEDS ORDERED: ORPHENADRINE 60 MG/2 ML (NORFLEX) AMP (ED ONLY) IM ONE (10:30)
[2021-09-21 10:55] VITALS: BP 137/85
== END 2021-09-21 10:55 | disposition home or self-care (01) ==
LOC: EDUNIT# 09:22 → ER 09:25
DX: M79.18 Myalgia, other site (principal); F41.9 Anxiety disorder, unspecified; F17.210 Nicotine dependence, cigarettes, uncomplicated; Z79.899 Other long term (current) drug therapy; V49.40XA Driver injured in collision with unspecified motor vehicles in traffic accident, initial encounter
CPT/HCPCS: 99284

== ENCOUNTER 2022-02-11 12:24 | Emergency (ER) | payer MEDICAID ==
[~2022-02-11 12:24] MED LIST changes: +CYCL10TA25 PO; +OMEP20TA56 PO; -OMEP20TA7 PO
[2022-02-11 13:08] VITALS: BP 138/89
[2022-02-11] MEDS ORDERED: SULF1TAB38 PO (14:18)
[2022-02-11] MEDS ORDERED: DOXY100T2 PO (14:18)
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
== END 2022-02-11 14:12 | disposition left against medical advice (07) ==
LOC: EDUNIT# 12:24 → ER 12:25
DX: L02.01 Cutaneous abscess of face (principal); F17.210 Nicotine dependence, cigarettes, uncomplicated; Z28.310 Unvaccinated for COVID-19
CPT/HCPCS: 99282

== ENCOUNTER 2022-09-08 22:59 | Emergency (ER) | payer MEDICAID ==
[~2022-09-08] VITALS: Ht 167 cm; Wt 83.9 kg
[~2022-09-08 22:59] MED LIST changes: +DOXY100T2 PO; +SULF1TAB38 PO
[2022-09-08 23:35] LABS: BILIRUBIN,URINE NEGATIVE (NEGATIVE); CLARITY,URINE SL CLOUDY; COLOR,URINE RED; GLUCOSE, URINE (UA) NEGATIVE (NEGATIVE); KETONES,URINE NEGATIVE (NEGATIVE); LEUKOCYTE ESTERASE ,URINE TRACE (NEGATIVE); NITRITE,URINE NEGATIVE (NEGATIVE); PROTEIN,URINE 1+ (NEGATIVE)
[2022-09-08 23:40] LABS: BASOPHILS % (AUTO) 0 % (0-10); EOSINOPHILS # (AUTO) 0.1 10^3/uL (0.0-0.3); EOSINOPHILS % (AUTO) 1 % (0-10); HEMATOCRIT 36 % (35-52); HEMOGLOBIN 11.4 g/dL (11.5-16.0); LYMPHOCYTES # (AUTO) 1.4 10^3/uL (1.0-4.0); LYMPHOCYTES % (AUTO) 14 % (12-44); MEAN CORPUSCULAR HEMOGLOBIN 25 pg (25-34); MEAN CORPUSCULAR HGB CONC 32 g/dL (32-36); MEAN CORPUSCULAR VOLUME 80 fL (80-99); MEAN PLATELET VOLUME 9.5 fL (9.0-12.2); MONOCYTES % (AUTO) 10 % (0-12); NEUTROPHILS # (AUTO) 7.3 10^3/uL (1.8-7.8); NEUTROPHILS % (AUTO) 74 % (42-75); PLATELET COUNT 224 10^3/uL (130-400); WHITE BLOOD COUNT 9.8 10^3/uL (4.3-11.0)
[2022-09-08 23:43] LABS: ALBUMIN 4.2 GM/DL (3.2-4.5)
[2022-09-08 23:43] LABS: BACTERIA,URINE TRACE /HPF; RBC,URINE TNTC /HPF; SQUAMOUS EPITHELIAL CELL,UR 0-2 /HPF
[2022-09-08 23:44] LABS: POTASSIUM 3.6 MMOL/L (3.6-5.0)
[2022-09-08 23:45] LABS: CALCIUM 9.3 MG/DL (8.5-10.1)
[2022-09-08 23:46] LABS: TOTAL PROTEIN 7.3 GM/DL (6.4-8.2)
[2022-09-08 23:48] LABS: BILIRUBIN,TOTAL 0.5 MG/DL (0.1-1.0)
[2022-09-08 23:50] LABS: CREATININE SERUM 0.74 MG/DL (0.60-1.30)
--- NOTE | 2022-09-09 00:07 | ED General ---
General Chief Complaint: Back Problems Stated Complaint: LOW BACK PAIN,FEVER Nursing Triage Note: Diagnosed on the with a UTI. Placed on macrobid. Spiked a fever at home of 100.8F. Came to ED. Reports pain in the right flank across to the right lower quadrant, up to the epigastric area. Source of Information: Patient Exam Limitations: No Limitations (BRITANY HOLLIDAY) History of Present Illness Date Seen by Provider: Sep 08, 2022 Time Seen by Provider: 23:16 Initial Comments This is a 27yo F who presents for low back pain and fever. Pmhx of anxiety and depression. Pt reports she had low back pain for the past 2 weeks. She initially presented to [facility] yesterday [id number] and was treated for a UTI with Macrobid. Her back pain was very intense at moments and caused her to cry. Pain has been worsening since yesterday and now radiates to her right flank. Pt also endorses chest discomfort not modified with rest or activity, right and left shoulder pain, chills, feeling warm, nausea, vomiting, myalgias, lightheadedness, dark urine, and shortness of air. Dark urine was present before visiting [facility]. Other symptoms started . Denies hematuria, dysuria, diaphoresis, and vertigo. Pt has decreased food and fluid intake for the past 3-4d. Pt also reports. Patient has history of kidney stones and UTIs. Surgical history includes x3, appendectomy, and tubal ligation. She currently smokes 1/2 ppd and endorses marijuana use, denies alcohol and illicit drug use. Timing/Duration: Other (2 weeks) Severity: Moderate Associated Systoms: Chest Pain; No Cough, No Diaphoresis; Fever/Chills; No Headaches; Loss of Appetite, Malaise, Nausea/Vomiting, Shortness of Air (BRITANY HOLLIDAY) Allergies and Home Medications Allergies Coded Allergies: No Known Drug Allergies (Unverified , 04/19/13) Patient Home Medication List Home Medication List Reviewed: Yes (MARY COLINDRES MD) Cefdinir (Cefdinir) 300 Mg Capsule, 300 MG PO BID Prescribed by: MARY HUTCHISON on 09/09/22 0318 Cyclobenzaprine HCl (Cyclobenzaprine HCl) 10 Mg Tablet, 10 MG PO Q8H PRN for SPASMS Prescribed by: MARCIE ALDANA on 09/21/21 1028 Doxycycline Hyclate (Doxycycline Hyclate) 100 Mg Tablet, 100 MG PO BID Prescribed by: MARY HUTCHISON on 02/11/22 1418 Naproxen (Naprosyn) 500 Mg Tablet, 500 MG PO BID Prescribed by: FREYA MATOS on 08/01/21 182 Ondansetron (Ondansetron Odt) 4 Mg Tab.rapdis, 4 MG PO Q6H PRN for NAUSEA/VOMITING Prescribed by: FREYA MATOS on 08/01/21 182 Ondansetron (Ondansetron Odt) 4 Mg Tab.rapdis, 4 MG SL Q4H PRN for NAUSEA/VOMITING Prescribed by: MARY HUTCHISON on 09/09/22 0318 Sertraline HCl (Sertraline HCl) 100 Mg Tablet, (Reported) Entered as Reported by: SHAVONNE RIVAS on 11/24/19 0049 Sulfamethoxazole/Trimethoprim (Bactrim Ds Tablet) 1 Each Tablet, 1 EACH PO BID Prescribed by: MARY HUTCHISON on 02/11/22 1418 Review of Systems Review of Systems Constitutional: chills; No diaphoresis, No dizziness; fever, malaise, weakness EENTM: no symptoms reported Respiratory: dyspnea on exertion, short of breath Cardiovascular: chest pain; No edema, No palpitations, No syncope Gastrointestinal: abdominal pain (RLQ); No constipation, No diarrhea, No nausea, No vomiting Genitourinary: No dysuria, No frequency, No hematuria; other (dark urine since 2 weeks ago) Musculoskeletal: back pain Skin: no symptoms reported (BRITANY HOLLIDAY) Past Vrdhufe-Kdkvle-Qaronq Hx Patient Social History Tobacco Use?: Yes Tobacco type used: Cigarettes Smoking Status: Current Everyday Smoker Smokeless Tobacco Frequency: Never a User Use of E-Cig and/or Vaping dev: No Substance use?: Yes Substance type: Marijuana Alcohol Use?: No Pt feels they are or have been: No (BRITANY HOLLIDAY) Immunizations Up To Date Tetanus Booster (TDap): Unknown PED Vaccines UTD: No (BRITANY HOLLIDAY) Seasonal Allergies Seasonal Allergies: No (BRITANY HOLLIDAY) Past Medical History Surgery/Hospitalization HX: x's 3 Appendectomy 04/16/2013 Tubal 11/04/2017 DEPRESSION, ANXIETY Surgeries: Yes (WISDOM TEETH, X 3) Appendectomy, Section, Tubal Ligation Respiratory: No Cardiac: No Neurological: No Last Menstrual Period: Sep 07, 2022 Reproductive Disorders: No Female Reproductive Disorders: Denies Sexually Transmitted Disease: No HIV/AIDS: No Genitourinary: Yes Bladder Infection Gastrointestinal: Yes Gastroesophageal Reflux, Chronic Constipation Musculoskeletal: No Endocrine: No HEENT: No Cancer: No Psychosocial: Yes Anxiety Integumentary: No Blood Disorders: No Adverse Reaction/Blood Tranf: No (BRITANY HOLLIDAY) Family Medical History Adopted No Pertinent Family Hx (BRITANY HOLLIDAY) Physical Exam Vital Signs Vital Signs - First Documented 09/08/22 23:10 Temp 37.5 Pulse 93 Resp 18 B/P (MAP) 152/89 (110) O2 Delivery Room Air (MARY COLINDRES MD) Vital Signs Capillary Refill : Less Than 3 Seconds (BRITANY HOLLIDAY) Height, Weight, BMI Height: 5'3.00" Weight: 197lbs. 8.0oz. 89.240169ss; 32.00 BMI Method:Stated General Appearance: No Apparent Distress, WD/WN HEENT: PERRL/EOMI, TMs Normal, Normal ENT Inspection, Pharynx Normal Respiratory: Chest Non Tender, Lungs Clear, Normal Breath Sounds, No Accessory Muscle Use, No Respiratory Distress Cardiovascular: Regular Rate, Rhythm, No Edema, No Murmur, Normal Peripheral Pulses Gastrointestinal: Normal Bowel Sounds, No Organomegaly, No Pulsatile Mass, Soft, Tenderness (Right quadrants, more localized to RLQ. Also suprapubic tender ness.) Back: CVA Tenderness (L), CVA Tenderness (R) (right greater than left) Extremity: Normal Capillary Refill, Normal Inspection, Normal Range of Motion, Non Tender, No Calf Tenderness, No Pedal Edema Neurologic/Psychiatric: Alert, Oriented x3, No Motor/Sensory Deficits, Normal Mood/Affect Skin: Other (flushed appearance of face) (BRITANY HOLLIDAY) Progress/Results/Core Measures Suspected Sepsis SIRS Temperature: Pulse: 93 Respiratory Rate: 18 Laboratory Tests 09/08/22 23:16: White Blood Count 9.8 Blood Pressure 152 /89 Mean: 110 Laboratory Tests 1/16/23 23:16: Creatinine 0.74, Platelet Count 224, Total Bilirubin 0.5 (BRITANY HOLLIDAY) Results/Orders Lab Results Laboratory Tests Test 09/08/22 23:12 09/08/22 23:16 09/08/22 23:49 Range/Units Urine Color RED H Urine Clarity SL CLOUDY Urine pH 6.0 5-9 Urine Specific [place] 1.015 L 1.016-1.022 Urine Protein 1+ H NEGATIVE Urine Glucose (UA) NEGATIVE NEGATIVE Urine Ketones NEGATIVE NEGATIVE Urine Nitrite NEGATIVE NEGATIVE Urine Bilirubin NEGATIVE NEGATIVE Urine Urobilinogen 0.2 < = 1.0 MG/DL Urine Leukocyte Esterase TRACE H NEGATIVE Urine RBC (Auto) 3+ H NEGATIVE Urine RBC TNTC H /HPF Urine WBC 5-10 H /HPF Urine Squamous Epithelial Cells 0-2 /HPF Urine Crystals NONE /LPF Urine Bacteria TRACE /HPF Urine Casts NONE /LPF Urine Mucus NEGATIVE /LPF Urine Culture Indicated YES White Blood Count 9.8 4.3-11.0 10^3/uL Red Blood Count 4.50 3.80-5.11 10^6/uL Hemoglobin 11.4 L 11.5-16.0 g/dL Hematocrit 36 35-52 % Mean Corpuscular Volume 80 80-99 fL Mean Corpuscular Hemoglobin 25 25-34 pg Mean Corpuscular Hemoglobin Concent 32 32-36 g/dL Red Cell Distribution Width 15.0 H 10.0-14.5 % Platelet Count 224 130-400 10^3/uL Mean Platelet Volume 9.5 9.0-12.2 fL Immature Granulocyte % (Auto) 0 % Neutrophils (%) (Auto) 74 42-75 % Lymphocytes (%) (Auto) 14 12-44 % Monocytes (%) (Auto) 10 0-12 % Eosinophils (%) (Auto) 1 0-10 % Basophils (%) (Auto) 0 0-10 % Neutrophils # (Auto) 7.3 1.8-7.8 10^3/uL Lymphocytes # (Auto) 1.4 1.0-4.0 10^3/uL Monocytes # (Auto) 1.0 0.0-1.0 10^3/uL Eosinophils # (Auto) 0.1 0.0-0.3 10^3/uL Basophils # (Auto) 0.0 0.0-0.1 10^3/uL Immature Granulocyte # (Auto) 0.0 0.0-0.1 10^3/uL Sodium Level 137 135-145 MMOL/L Potassium Level 3.6 3.6-5.0 MMOL/L Chloride Level 103 98-107 MMOL/L Carbon Dioxide Level 23 21-32 MMOL/L Anion Gap 11 5-14 MMOL/L Blood Urea Nitrogen 12 7-18 MG/DL Creatinine 0.74 0.60-1.30 MG/DL Estimat Glomerular Filtration Rate 112 BUN/Creatinine Ratio 16 Glucose Level 109 H 70-105 MG/DL Calcium Level 9.3 8.5-10.1 MG/DL Corrected Calcium 9.1 8.5-10.1 MG/DL Total Bilirubin 0.5 0.1-1.0 MG/DL Aspartate Amino Transf (AST/SGOT) 12 5-34 U/L Alanine Aminotransferase (ALT/SGPT) 14 0-55 U/L Alkaline Phosphatase 68 40-136 U/L C-Reactive Protein High Sensitivity 5.74 H 0.00-0.50 MG/DL Total Protein 7.3 6.4-8.2 GM/DL Albumin 4.2 3.2-4.5 GM/DL Serum Test, Qualitative NEGATIVE NEGATIVE Lipase 24 8-78 U/L Influenza Type A (RT-PCR) Not Detected Not Detecte Influenza Type B (RT-PCR) Not Detected Not Detecte SARS-CoV-2 RNA (RT-PCR) Not Detected Not Detecte (MARY COLINDRES MD) My Orders Orders - MARY COLINDRES MD Ua Culture If Indicated (09/08/22 23:31) Cbc With Automated Diff (09/08/22 23:32) Comprehensive Metabolic Panel (09/08/22 23:32) Hs C Reactive Protein (09/08/22 23:32) Hcg,Qualitative Serum (09/08/22 23:32) Ed Iv/Invasive Line Start (09/08/22 23:32) Urine Culture (09/08/22 23:12) Covid 19 Inhouse Test (09/08/22 23:54) Influenza A And B By Pcr (09/08/22 23:54) Lipase (09/08/22 23:55) Ketorolac Injection (Toradol Injection) (09/09/22 00:30) Lactated Ringers (Lr 1000 Ml Iv Solution (09/09/22 00:30) Ct Abdomen/Pelvis W (09/09/22 00:27) Ondansetron Injection (Zofran Injectio (09/09/22 01:00) Ondansetron Injection (Zofran Injectio (09/09/22 00:53) Iohexol Injection (Omnipaque 350 Mg/Ml 1 (09/09/22 01:30) Sodium Chloride Flush (Catheter Flush Sy (09/09/22 01:30) Ns (Ivpb) (Sodium Chloride 0.9% Ivpb Bag (09/09/22 01:30) Ceftriaxone 1 Gm Pre-Mix (Rocephin 1 Gm (09/09/22 02:21) Hydrocodone/Apap 5/325 Tablet (Lortab 5 (09/09/22 03:15) (MARY COLINDRES MD) Medications Given in ED Current Medications Medications Dose Ordered Sig/Pedro Route Start Time Stop Time Status Last Admin Dose Admin Acetaminophen/ Hydrocodone Bitart 1 ea ONCE ONCE PO 09/09/22 03:15 09/09/22 03:16 DC 09/09/22 03:26 1 EA Iohexol 100 ml ONCE ONCE IV 09/09/22 01:30 09/09/22 01:31 DC 09/09/22 01:25 80 ML Ketorolac Tromethamine 30 mg ONCE ONCE IVP 09/09/22 00:30 09/09/22 00:31 DC 09/09/22 00:32 30 MG Lactated Ringer's 1,000 ml @ 0 mls/hr Q0M ONCE IV 09/09/22 00:30 09/09/22 00:31 DC 09/09/22 00:35 999 MLS/HR Ondansetron HCl 8 mg ONCE ONCE IVP 09/09/22 01:00 09/09/22 01:01 DC 09/09/22 00:54 8 MG Sodium Chloride 10 ml NEEDED PRN IV 09/09/22 01:30 09/09/22 03:28 DC 09/09/22 01:25 10 ML Sodium Chloride 100 ml ONCE ONCE IV 09/09/22 01:30 09/09/22 01:31 DC 09/09/22 01:25 80 ML (MARY COLINDRES MD) Vital Signs/I&O 09/08/22 23:10 Temp 37.5 Pulse 93 Resp 18 B/P (MAP) 152/89 (110) O2 Delivery Room Air (MARY COLINDRES MD) Vital Signs/I&O Capillary Refill : Less Than 3 Seconds (MGBRITANY) Blood Pressure Mean: 110 Progress Note : Progress Note Patient was interviewed and examined by me personally along with MS 4. Labs were obtained and were reviewed including CBC, CMP, CRP, viral swabs, and urinalysis. She did not exhibit any leukocytosis and had only a modest elevation in CRP. Viral swabs were obtained to determine if her more systemic symptoms could be related to viral illness. Influenza and COVID-19 swabs were negative. Patient reported fever at home of up to 100.8. She did not have fever in the ER. She was treated with Toradol for pain. IV fluids were infused. Labs including urinalysis did not clearly explain her constellation of symptoms. I discussed further work-up including CT imaging. Risks were discussed including risk of radiation exposure, contrast dye exposure, and cost. Patient elected to proceed with CT scan after reviewing risks and benefits. CT was obtained and reviewed by me. Stat rad report was also reviewed. She was found to have decreased density in the posterior right kidney with some minimal perinephric stranding concerning for possible pyelonephritis. I suspect that the Macrobid she was prescribed in the outpatient setting has been effectively treating pyelonephritis as her labs and vital signs would not suggest severe p yelonephritis or sepsis. She was additionally treated with a gram of Rocephin IV. Pain was additionally treated with hydrocodone prior to discharge. Cefdinir was added to her antibiotic therapy, and she was instructed to continue this until urine culture results could be reviewed. Her lower abdominal pain is likely secondary to ovarian cyst seen on CT scan. This should be further characterized by ultrasound, and an ultrasound outpatient order was provided. See discharge instructions for further discussion. (MARY COLINDRES MD) Diagnostic Imaging Diagonstic Imaging: CT Plain Films/CT/US/NM/MRI: abdomen, pelvis Comments CT scan was reviewed by me and Statrad report was reviewed. There is an area (MARY COLINDRES MD) Departure Impression Primary Impression: Pyelonephritis Additional Impression: Right ovarian cyst Disposition: 01 HOME, SELF-CARE Condition: Improved Departure-Patient Inst. Decision time for Depature: 03:10 (MARY COLINDRES MD) Referrals: [facility] [place] (PCP/Family) Primary Care Physician Patient Instructions: Kidney Infection, Ovarian Cyst ED Add. Discharge Instructions: Drink plenty of clear liquids to stay well-hydrated. For pain you may take ibuprofen up to 600 mg every 6 hours as needed and/or Tylenol (acetaminophen) up to 1000 mg every 6 hours as needed. Continue with Macrobid as previously prescribed and add cefdinir as prescribed in the ER. Continue both antibiotics until urine culture is available for review. Your urine culture from the emergency room should be available for gorge bernal sometime on . Please contact your primary care provider on to review. Uses Zofran (ondansetron) as prescribed for nausea and vomiting. Return to the emergency room if you have worsening symptoms despite following these instructions. All discharge instructions reviewed with patient and/or family. Voiced understanding. Scripts Cefdinir (Cefdinir) 300 Mg Capsule 300 MG PO BID, #20 CAP 0 Refills Prov: MARY COLINDRES MD 09/09/22 Ondansetron (Ondansetron Odt) 4 Mg Tab.rapdis 4 MG SL Q4H PRN for NAUSEA/VOMITING, #10 TAB Prov: MARY COLINDRES MD 09/09/22 Medical Student Attestation and Attending Note: I have personally interviewed and examined this patient along with Britany Holliday, MS 4. I have reviewed student documentation including history, physical, and assessments. I agree with the documentation except where otherwise noted. Exam: General: Alert, oriented, no acute distress, well developed, mildly ill-liyah earing HEENT: Normocephalic and atraumatic Heart: Regular rhythm with mild tachycardia without murmur Lungs: Clear to auscultation bilaterally with normal effort Abdomen: Soft, moderately tender in the right lower quadrant and mildly tender in the right upper quadrant and epigastrium, nondistended, normal bowel sounds Back: CVA tenderness bilaterally, right greater than left Neuropsych: Alert, oriented, no focal deficits Skin: Warm and dry without rashes (MARY COLINDRES MD) Copy Copies To 1: [facility]/BRITANY IRVIN Sep 09, 2022 00:07 MARY COLINDRES MD Sep 09, 2022 03:09
[2022-09-09] MEDS ORDERED: KETOROLAC 30 MG/ML VIAL IVP ONE (00:30)
[2022-09-09] MEDS ORDERED: LACTATED RINGERS 1,000 ML IV ONE (00:30)
[2022-09-09] MEDS ORDERED: ONDANSETRON 4 MG/2 ML (SDV) Z0FRAN ONE (00:53)
[2022-09-09] MEDS ORDERED: ONDANSETRON 4 MG/2 ML (SDV) Z0FRAN IVP ONE (01:00)
[2022-09-09] MEDS ORDERED: NS 100 ML (IVPB) BAG IV ONE (01:30)
[2022-09-09] MEDS ORDERED: IOHEXOL 350 MG/ML 100 ML (OMNIPAQUE 350) VIAL IV ONE (01:30)
[2022-09-09] MEDS ORDERED: CATHETER FLUSH 10 ML SYR IV PRN (01:30)
[2022-09-09] MEDS ORDERED: cefTRIAXone 1 GM PRE-MIX 50 ML IV STA (02:21)
[2022-09-09] MEDS ORDERED: HYDROcodone/APAP 5 MG/325 MG (LORTAB) TAB PO ONE (03:15)
[2022-09-09] MEDS ORDERED: ONDA4TAB11 SL (03:18)
[2022-09-09] MEDS ORDERED: CEFD300C3 PO (03:18)
[2022-09-09 03:28] VITALS: BP 143/88
--- NOTE | 2022-09-09 06:14 | Diagnostic Imaging Report ---
EXAMINATION: CT abdomen and pelvis with intravenous contrast. TECHNIQUE: Multiple contiguous axial images were obtained through the abdomen and pelvis after the uneventful administration of intravenous contrast. All CT scans use one or more of the following dose optimizing techniques: automated exposure control, MA and/or KvP adjustment based on patient size and exam type or iterative reconstruction. HISTORY: Right flank and abdominal pain COMPARISON: 09/06/2015 FINDINGS: Lung bases: The lung bases are clear. Solid organs: The liver is normal without focal lesion. The gallbladder is normal. There is no biliary ductal dilation. Pancreas is normal. Spleen is normal. Adrenal glands are normal. There is patchy cortical hypoenhancement seen within the superior pole of the right kidney. The left kidney is unremarkable. No hydronephrosis. Bowel: The stomach and small bowel are normal without obstruction. Colon is unremarkable. The appendix is surgically absent per patient history. Peritoneum: There is no intraperitoneal free fluid or free air. No suspicious lymphadenopathy. Vasculature: Normal without aneurysm. Musculoskeletal: No suspicious osseous lesion or compression fracture. Pelvis: The uterus is unremarkable. There is a right adnexal cyst measuring up to 5.7 cm. The urinary bladder is normal. IMPRESSION: 1. Patchy cortical hypoenhancement seen within the superior pole of the right kidney is concerning for pyelonephritis. 2. A 5.7 cm right adnexal cystic lesion. Consider correlation with pelvic ultrasound. 3. Agree with preliminary interpretation. Dictated by: Dictated on workstation # [id number]
== END 2022-09-09 03:28 | disposition home or self-care (01) ==
LOC: EDUNIT# 22:59 → ER 23:01
DX: N12 Tubulo-interstitial nephritis, not specified as acute or chronic (principal); N83.201 Unspecified ovarian cyst, right side; F17.210 Nicotine dependence, cigarettes, uncomplicated; Z32.02 Encounter for pregnancy test, result negative; Z20.822 Contact with and (suspected) exposure to COVID-19
CPT/HCPCS: 36415; 74177; 80053; 81000; 83690; 84703; 85025; 86141; 87088; 87636

== ENCOUNTER → 2022-09-09 | Outpatient (CLI) | payer MEDICAID ==
[~2022-09-09] MED LIST changes: +CEFD300C3 PO; +ONDA4TAB11 SL
--- NOTE | 2022-09-09 11:33 | Diagnostic Imaging Report ---
PROCEDURE: Pelvic complete, transabdominal and transvaginal sonogram. Limited pelvic Doppler. TECHNIQUE: Multiple Real-time grayscale images were obtained of the pelvis in various projections transabdominally and transvaginally. Limited pelvic duplex images were obtained. HISTORY: Right lower quadrant pain, right adnexal cyst. COMPARISON: 09/09/2022. FINDINGS: Uterus: The uterus is anteverted and measures 7.6 x 4.6 x 6.8 cm. The myometrium is homogeneous without fibroids. Endometrium: The endometrium is normal in thickness and measures 0.8 cm. Mild fluid is seen within the endometrial cavity with debris. No vascularity. Adnexa: There is a complex cystic lesion within the right ovary measuring 5.0 x 4.8 x 4.4 cm. There is mild internal debris and lacelike appearance. The left ovary is unremarkable. The right ovary measures 5.8 x 5.2 x 6.0 cm and the left ovary measures 2.2 x 2.8 x 1.6 cm. Duplex images reveal normal vascular flow to both ovaries. Other: There is no free fluid within the pelvis. IMPRESSION: 1. A complex cystic lesion within the right ovary demonstrates characteristics suggesting a hemorrhagic cyst. Recommend ultrasound followup in 6-12 weeks. 2. Mild fluid or debris within the endometrial cavity which could be seen with blood products. Dictated by: Dictated on workstation # [id number]
== END ==
LOC: RAD 10:09
PROVIDERS: ATTEND Emergency Medicine
DX: N83.201 Unspecified ovarian cyst, right side (principal)
CPT/HCPCS: 76830; 76856